=== PATIENT | female | born 1930 | race Caucasian/White ===

== ENCOUNTER 2016-03-13 01:40 | Inpatient (IN) | payer OTHER ==
--- NOTE | 2016-03-13 02:22 | PDOC ---
History of Present Illness - General History Source: Patient Exam Limitations: No Limitations - History of Present Illness Initial Comments: 03/13/16 02:49 The patient is a 85 year old female, with a significant past medical history of HTN, RA, CAD (stent placed), who presents to the emergency department with L knee pain and L thigh s/p fall. The patients daughter is at bedside and reports she misstepped while climbing down the stairs. The patient denies any further complaints or any injury. She denies chest pain, headache and dizziness. She denies fever, chills, nausea, vomit, diarrhea and constipation. She denies dysuria, frequency, urgency and hematuria. <Amy Briggs - Last Filed: 03/13/16 02:49> <Franklin Han - Last Filed: 03/13/16 06:08> - General Stated Complaint: FALL Past History <Amy Briggs - Last Filed: 03/13/16 02:49> - Past Medical History Cardiac Disorders: Yes (Atrial Fibrillation) HTN: Yes Hypercholesterolemia: Yes - Surgical History Cardiac Surgery: Yes (1 2009) - Immunization History Immunization Up to Date: Yes - Psycho/Social/Smoking Cessation Hx Anxiety: No Suicidal Ideation: No Smoking History: Never smoked Have you smoked in the past 12 months: No Number of Cigarettes Smoked Daily: 0 Cigars Per Day: 0 Information on smoking cessation initiated: No Hx Alcohol Use: No Drug/Substance Use Hx: No Substance Use Type: None Hx Substance Use Treatment: No <Franklin Han - Last Filed: 03/13/16 06:08> - Past Medical History Allergies/Adverse Reactions: Allergies Allergy/AdvReac Type Severity Reaction Status Date / Time No Known Allergies Allergy Verified 07/04/13 16:19 Home Medications: Ambulatory Orders Amiodarone HCl [Cordarone -] 200 mg PO DAILY 03/13/16 Famotidine [Pepcid] 20 mg PO DAILY 03/13/16 Levothyroxine [Synthroid -] 0.05 mg PO DAILY 03/13/16 Lisinopril [Zestril] 2.5 mg PO DAILY 03/13/16 Metoprolol Succinate [Toprol Xl -] 25 mg PO DAILY 03/13/16 Rivaroxaban [Xarelto -] 15 mg PO DAILY 12/25/16 Review of Systems - Review of Systems Able to Perform ROS?: Yes Comments:: 03/13/16 02:49 GENERAL/CONSTITUTIONAL: No fever or chills. No weakness. HEAD, EYES, EARS, NOSE AND THROAT: No change in vision. No ear pain or discharge. No sore throat. CARDIOVASCULAR: No chest pain or shortness of breath. RESPIRATORY: No cough, wheezing, or hemoptysis. GASTROINTESTINAL: No nausea, vomiting, diarrhea or constipation. GENITOURINARY: No dysuria, frequency, or change in urination. MUSCULOSKELETAL: + L knee pain. +L thigh pain.No joint or muscle swelling or pain. No neck or back pain. SKIN: No rash NEUROLOGIC: No headache, vertigo, loss of consciousness, or change in strength/ sensation. ENDOCRINE: No increased thirst. No abnormal weight change. HEMATOLOGIC/LYMPHATIC: No anemia, easy bleeding, or history of blood clots. ALLERGIC/IMMUNOLOGIC: No hives or skin allergy. <Amy Briggs - Last Filed: 03/13/16 02:49> *Physical Exam - Vital Signs Last Vital Signs Temp Pulse Resp BP Pulse Ox 98.1 F 86 20 117/76 100 03/13/16 02:00 03/13/16 02:00 03/13/16 02:00 03/13/16 02:00 03/13/16 02:00 - Physical Exam Comments: 03/13/16 02:49 GENERAL: Awake, alert, and fully oriented, in no acute distress HEAD: No signs of trauma EYES: PERRLA, EOMI, sclera anicteric, conjunctiva clear ENT: Auricles normal inspection, hearing grossly normal, nares patent, oropharynx clear without exudates. Moist mucosa NECK: Normal ROM, supple, no lymphadenopathy, JVD, or masses LUNGS: Breath sounds equal, clear to auscultation bilaterally. No wheezes, and no crackles HEART: Regular rate and rhythm, normal S1 and S2, no murmurs, rubs or gallops ABDOMEN: Soft, nontender, normoactive bowel sounds. No guarding, no rebound. No masses EXTREMITIES: +Tender in the L mid thigh and L femur. Normal range of motion, no edema. No clubbing or cyanosis. No cords, erythema, or tenderness NEUROLOGICAL: Cranial nerves II through XII grossly intact. Normal speech, normal gait SKIN: Warm, Dry, normal turgor, no rashes or lesions noted. <Amy Briggs - Last Filed: 03/13/16 02:49> - Vital Signs Last Vital Signs Temp Pulse Resp BP Pulse Ox 98.1 F 86 20 117/76 100 03/13/16 02:00 03/13/16 02:00 03/13/16 02:00 03/13/16 02:00 03/13/16 02:00 <Franklin Han - Last Filed: 03/13/16 06:08> ED Treatment Course - LABORATORY CBC & Chemistry Diagram: 03/13/16 02:52 03/13/16 02:52 <Franklin Han - Last Filed: 03/13/16 06:08> *DC/Admit/Observation/Transfer - Attestations Scribe Attestion: 03/13/16 02:50 Documentation prepared by Amy Briggs, acting as certified medical dosimetrist for Franklin Han MD <Amy Briggs - Last Filed: 03/13/16 02:49> - Discharge Dispostion Admit: Yes <Franklin Han - Last Filed: 03/13/16 06:08> Diagnosis at time of Disposition: Fracture of left tibial plateau Qualifiers: Encounter type: initial encounter Fracture type: closed Qualified Code(s): S82.142A - Displaced bicondylar fracture of left tibia, initial encounter for closed fracture Fracture of proximal end of fibula Qualifiers: Encounter type: initial encounter Fracture type: closed - Discharge Dispostion Condition at time of disposition: Guarded - Referrals Referrals: Mateo Parrish MD [Primary Care Provider] -
[2016-03-13] MEDS ORDERED: morphine CARPU-JECT 4 MG/1 ML DISP.SYRIN IVPUSH ONE (02:29)
[2016-03-13] MEDS: SODIUM CHLORIDE 1,000 ML IV SCH ×2 (03:16→14:23)
[2016-03-13 03:22] LABS: BASOPHIL 0.1 % (0-2.0); MCH 31.4 pg (25.7-33.7); MCHC 32.1 g/dl (32.0-36.0); MEAN CELL VOLUME 97.7 fl (80-96); MEAN PLT VOLUME 8.8 fl (7.5-11.1); NEUTROPHILS 93.2 % (42.8-82.8); PLATELET COUNT 202 K/MM3 (134-434); RDW 13.7 % (11.6-15.6); WHITE BLOOD COUNT 15.1 K/mm3 (4.0-10.0)
[2016-03-13 03:47] LABS: ALBUMIN 3.7 g/dl (3.4-5.0); CALCIUM 8.7 mg/dL (8.5-10.1); CREATININE 2.2 mg/dL (0.55-1.02)
[2016-03-13 03:50] LABS: BILIRUBIN,TOTAL 0.7 mg/dL (0.2-1.0); TOT PROT 6.7 g/dl (6.4-8.2)
[2016-03-13 04:44] LABS: URINE APPEARANCE SLCLOUDY; URINE BILIRUBIN NEGATIVE (NEGATIVE); URINE BLOOD NEGATIVE (NEGATIVE); URINE COLOR DKYELLOW; URINE GLUCOSE (UA) NEGATIVE (NEGATIVE); URINE KETONE TRACE (NEGATIVE); URINE NITRITE NEGATIVE (NEGATIVE); URINE UROBILINOGEN 2.0 E.U/dl E.U./dl (0.2-1.0)
[2016-03-13 04:46] LABS: URINE LEUK ESTERASE 1+ (NEGATIVE); URINE PROTEIN 1+ (NEGATIVE)
[2016-03-13 04:48] LABS: URINE BACTERIA FEW /hpf (NONE SEEN); URINE HYALINE CAST 21 /lpf; URINE MUCUS FEW; URINE RBC 2 /hpf (0-3); URINE WBC 7 /hpf (3-5)
--- NOTE | 2016-03-13 07:48 | HP ---
CHIEF COMPLAINT: PCP: HISTORY OF PRESENT ILLNESS: ER course was notable for: (1) (2) (3) Recent Travel: PAST MEDICAL HISTORY: PAST SURGICAL HISTORY: Social History: Smoking: Alcohol: Drugs: Family History: Allergies No Known Allergies Allergy (Verified 07/04/13 16:19) HOME MEDICATIONS: Medication Instructions Recorded Amiodarone HCl [Cordarone -] 200 mg PO DAILY 03/13/16 Famotidine [Pepcid] 20 mg PO DAILY 03/13/16 Levothyroxine [Synthroid -] 0.05 mg PO DAILY 03/13/16 Lisinopril [Zestril] 2.5 mg PO DAILY 03/13/16 Metoprolol Succinate [Toprol XL -] 25 mg PO DAILY 03/13/16 Rivaroxaban [Xarelto -] 15 mg PO DAILY 03/13/16 REVIEW OF SYSTEMS CONSTITUTIONAL: Absent: fever, chills, diaphoresis, generalized weakness, malaise, loss of appetite, weight change HEENT: Absent: rhinorrhea, nasal congestion, throat pain, throat swelling, difficulty swallowing, mouth swelling, ear pain, eye pain, visual changes CARDIOVASCULAR: Absent: chest pain, syncope, palpitations, irregular heart rate, lightheadedness , peripheral edema RESPIRATORY: Absent: cough, shortness of breath, dyspnea with exertion, orthopnea, wheezing, stridor, hemoptysis GASTROINTESTINAL: Absent: abdominal pain, abdominal distension, nausea, vomiting, diarrhea, constipation, melena, hematochezia GENITOURINARY: Absent: dysuria, frequency, urgency, hesitancy, hematuria, flank pain, genital pain MUSCULOSKELETAL: Absent: myalgia, arthralgia, joint swelling, back pain, neck pain SKIN: Absent: rash, itching, pallor HEMATOLOGIC/IMMUNOLOGIC: Absent: easy bleeding, easy bruising, lymphadenopathy, frequent infections ENDOCRINE: Absent: unexplained weight gain, unexplained weight loss, heat intolerance, cold intolerance NEUROLOGIC: Absent: headache, focal weakness or paresthesias, dizziness, unsteady gait, seizure, mental status changes, bladder or bowel incontinence PSYCHIATRIC: Absent: anxiety, depression, suicidal or homicidal ideation, hallucinations. PHYSICAL EXAMINATION Vital Signs - 24 hr 03/13/16 06:21 Temperature 98.9 F Pulse Rate [ 77 Radial] Respiratory 20 Rate Blood Pressure 164/69 [Left Arm] O2 Sat by Pulse 97 Oximetry (%) GENERAL: Awake, alert, and fully oriented, in no acute distress. HEAD: Normal with no signs of trauma. EYES: Pupils equal, round and reactive to light, extraocular movements intact, sclera anicteric, conjunctiva clear. No lid lag. EARS, NOSE, THROAT: Ears normal, nares patent, oropharynx clear without exudates. Moist mucous membranes. NECK: Normal range of motion, supple without lymphadenopathy, JVD, or masses. LUNGS: Breath sounds equal, clear to auscultation bilaterally. No wheezes, and no crackles. No accessory muscle use. HEART: Regular rate and rhythm, normal S1 and S2 without murmur, rub or gallop. ABDOMEN: Soft, nontender, not distended, normoactive bowel sounds, no guarding, no rebound, no masses. No hepatomegaly or splenomegaly. MUSCULOSKELETAL: Normal range of motion at all joints. No bony deformities or tenderness. No CVA tenderness. UPPER EXTREMITIES: 2+ pulses, warm, well-perfused. No cyanosis. No clubbing. Cap refill <2 seconds. No peripheral edema. LOWER EXTREMITIES: 2+ pulses, warm, well-perfused. No calf tenderness. No peripheral edema. NEUROLOGICAL: Cranial nerves II-XII intact. Normal speech. Normal gait. PSYCHIATRIC: Cooperative. Good eye contact. Appropriate mood and affect. SKIN: Warm, dry, normal turgor, no rashes or lesions noted. ASSESSMENT/PLAN:
[2016-03-13] MEDS: RANITIDINE HCL 150 MG TABLET (FP) PO SCH (09:32)
[2016-03-13] MEDS: LISINOPRIL 5 MG TABLET (FP) PO SCH (09:32)
[2016-03-13] MEDS: METOPROLOL SUCCINATE 25 MG TAB.SR.24H (FP) PO SCH (09:32)
[2016-03-13] MEDS: AMIODARONE HCL 200 MG TABLET (FP) PO SCH (09:32)
[2016-03-13] MEDS: RIVAROXABAN 15 MG TABLET PO SCH (09:35)
[2016-03-13] MEDS: oxyCODONE HCL 5 MG TABLET PO PRN ×2 (09:36→17:44)
[2016-03-13 10:04] VITALS: BMI 20.5
--- NOTE | 2016-03-13 16:16 | EKG ---
Test Reason : Blood Pressure : / mmHG Vent. Rate : 077 BPM Atrial Rate : 077 BPM P-R Int : 154 ms QRS Dur : 088 ms QT Int : 356 ms P-R-T Axes : 048 -05 006 degrees QTc Int : 402 ms NORMAL SINUS RHYTHM CANNOT RULE OUT ANTERIOR INFARCT , AGE UNDETERMINED ABNORMAL ECG WHEN COMPARED WITH ECG OF 11-JUL-2013 09:06, SINUS RHYTHM HAS REPLACED ATRIAL FIBRILLATION T WAVE INVERSION NO LONGER EVIDENT IN ANTEROLATERAL LEADS PREMATURE VENTRICULAR COMPLEXES NO LONGER SEEN Confirmed by MAYTE RECINOS MD ([id number]) on 03/13/2016 4:16:24 PM Referred By: Overread By: MAYTE RECINOS MD
--- NOTE | 2016-03-13 16:18 | HP ---
CHIEF COMPLAINT: Left knee and left thigh pain after falling on stairs. Daughter states patient missed a step while climbing stairs and lost balance. Denies loss of consciousness or head trauma. PCP: Mateo Parrish MD HISTORY OF PRESENT ILLNESS: The patient is a 85 year old female, with a significant past medical history of hypertension, RA, CAD (w stents), who presents to the emergency department with left knee pain and left thigh s/p fall. The patient denies hitting her head or feeling lightheaded. She denies chest pain, headache and dizziness. She denies fever, chills, nausea, vomit or any other discomfort. ER course was notable for: (1) Leukocytosis (2) Bun 34/Creatinine 2.3 (3) fracture of the proximal tibia and fibula Recent Travel: none PAST MEDICAL HISTORY: atrial fibrillation, hypertension Social History: Smoking: denies Alcohol: denies Drugs: denies Family History: Allergies - no known allergies No Known Allergies Allergy (Verified 07/04/13 16:19) HOME MEDICATIONS: Medication Instructions Recorded Amiodarone HCl [Cordarone -] 200 mg PO DAILY 03/13/16 Famotidine [Pepcid] 20 mg PO DAILY 03/13/16 Levothyroxine [Synthroid -] 0.05 mg PO DAILY 03/13/16 Lisinopril [Zestril] 2.5 mg PO DAILY 03/13/16 Metoprolol Succinate [Toprol XL -] 25 mg PO DAILY 03/13/16 Rivaroxaban [Xarelto -] 15 mg PO DAILY 03/13/16 REVIEW OF SYSTEMS CONSTITUTIONAL: Absent: fever, chills, diaphoresis, generalized weakness, malaise, loss of appetite, weight change HEENT: Absent: rhinorrhea, nasal congestion, throat pain, throat swelling, difficulty swallowing, mouth swelling, ear pain, eye pain, visual changes CARDIOVASCULAR: Absent: chest pain, syncope, palpitations, irregular heart rate, lightheadedness , peripheral edema RESPIRATORY: Absent: cough, shortness of breath, dyspnea with exertion, orthopnea, wheezing, stridor, hemoptysis GASTROINTESTINAL: Absent: abdominal pain, abdominal distension, nausea, vomiting, diarrhea, constipation, melena, hematochezia GENITOURINARY: Absent: dysuria, frequency, urgency, hesitancy, hematuria, flank pain, genital pain SKIN: Absent: rash, itching, pallor HEMATOLOGIC/IMMUNOLOGIC: Absent: easy bleeding, easy bruising, lymphadenopathy, frequent infections ENDOCRINE: Absent: unexplained weight gain, unexplained weight loss, heat intolerance, cold intolerance PHYSICAL EXAMINATION Vital Signs - 24 hr 03/13/16 03/13/16 03/13/16 06:21 09:56 14:44 Temperature 98.9 F 98.1 F 97.9 F Pulse Rate 71 68 Pulse Rate [ 77 Radial] Respiratory 20 20 Rate Blood Pressure 140/62 132/63 Blood Pressure 164/69 [Left Arm] O2 Sat by Pulse 97 98 Oximetry (%) GENERAL: Awake, alert, and fully oriented, in no acute distress. HEAD: Normal with no signs of trauma. EYES: Pupils equal, round and reactive to light, extraocular movements intact, sclera anicteric, conjunctiva clear. No lid lag. EARS, NOSE, THROAT: Ears normal, nares patent, oropharynx clear without exudates. Moist mucous membranes. NECK: Normal range of motion, supple without lymphadenopathy, JVD, or masses. LUNGS: Breath sounds equal, clear to auscultation bilaterally. No wheezes, and no crackles. No accessory muscle use. ABDOMEN: Soft, nontender, not distended, normoactive bowel sounds, no guarding, no rebound, no masses. No hepatomegaly or splenomegaly. MUSCULOSKELETAL: fracture of the left proximal tibia and fibula/no distress/ LLE immobilizer in place good pedal pulses UPPER EXTREMITIES: 2+ pulses, warm, well-perfused. No cyanosis. No clubbing. Cap refill <2 seconds. No peripheral edema. ASSESSMENT/PLAN: The patient is a 85 year old female, with a significant past medical history of hypertension, RA, CAD (w stents), who presents to the emergency department with left knee pain and left thigh s/p fall. The patient denies hitting her head or feeling lightheaded. She denies chest pain, headache and dizziness. She denies fever, chills, nausea, vomit or any other discomfort. Orthopedics: Fracture of the proximal tibia and fibula - acute Assessment/Plan: On LLE immobilizer, good pedal pulses. Surgical evaluation pending Pain managed with Oxycodone 5mg prn. Awaiting ortho recommendation/input. Cardiology: Hypertension - chronic Assessment/Plan: Controlled with Metoprolol 25mg daily, Lisinopril 2.5mg daily Monitor BPs : Acute Kidney Injury: Assessment/Plan: Bun/Creatinine elevated, on Normal saline at 100cc/hr Monitor trend F.E.N. NS at 100cc/hr BMP in the a.m. Regular diet Prophylaxis: GI: colace prn DVT: Xarelto 15mg daily, SCD on right leg Disposition: Requires inpatient hospitalization. Full code. Visit type - Emergency Visit Emergency Visit: Yes ED Registration Date: 03/13/16 Care time: The patient presented to the Emergency Department on the above date and was hospitalized for further evaluation of their emergent condition. - New Patient This patient is new to me today: Yes Date on this admission: 03/14/16 - Critical Care Critical Care patient: No
[2016-03-14] MEDS: SODIUM CHLORIDE 1,000 ML IV SCH (02:30)
[2016-03-14] MEDS: oxyCODONE HCL 5 MG TABLET PO PRN ×3 (06:13→23:59)
[2016-03-14] MEDS: LEVOTHYROXINE NA 50 MCG TABLET (FP) PO SCH (06:14)
[2016-03-14 07:23] LABS: MCH 32.9 pg (25.7-33.7); MCHC 33.4 g/dl (32.0-36.0); MEAN CELL VOLUME 98.3 fl (80-96); MEAN PLT VOLUME 8.5 fl (7.5-11.1); PLATELET COUNT 121 K/MM3 (134-434); RDW 13.8 % (11.6-15.6); WHITE BLOOD COUNT 8.2 K/mm3 (4.0-10.0)
[2016-03-14 07:44] LABS: CALCIUM 7.2 mg/dL (8.5-10.1); CREATININE 0.8 mg/dL (0.55-1.02)
[2016-03-14] MEDS: LISINOPRIL 5 MG TABLET (FP) PO SCH (09:27)
[2016-03-14] MEDS: METOPROLOL SUCCINATE 25 MG TAB.SR.24H (FP) PO SCH (09:27)
[2016-03-14] MEDS: AMIODARONE HCL 200 MG TABLET (FP) PO SCH (09:27)
[2016-03-14] MEDS: RANITIDINE HCL 150 MG TABLET (FP) PO SCH (09:27)
[2016-03-14] MEDS ORDERED: SODIUM CHLORIDE 1,000 ML IV SCH (10:46)
[2016-03-14] MEDS: RIVAROXABAN 15 MG TABLET PO SCH (11:33)
--- NOTE | 2016-03-14 14:39 | PN ---
Physical Exam: SUBJECTIVE: Patient seen and examined, son at the bedside. Pt verbalizes pain with movement of the left leg. 1500: Called Dr. Roper service [phone]; no one picks up, no option to leave message consulted Dr. Marie. 6th floor staff assisting in contacting Dr. Marie and/or Dr. Roper 1600: Called [facility], hit option 5, left message on voice mail and provided my cell phone no. on 1611: called Dr Marie service [phone] - spoke to coconut cooker - left stat message for Dr Marie. 162: Spoke with Dr. Marie, discussed case. OBJECTIVE: GENERAL: Awake, alert, and fully oriented, in no acute distress. HEAD: Normal with no signs of trauma. EYES: Pupils equal, round and reactive to light, extraocular movements intact, sclera anicteric, conjunctiva clear. No lid lag. EARS, NOSE, THROAT: Ears normal, nares patent, oropharynx clear without exudates. Moist mucous membranes. NECK: Normal range of motion, supple without lymphadenopathy, JVD, or masses. LUNGS: Breath sounds equal, clear to auscultation bilaterally. No wheezes, and no crackles. No accessory muscle use. ABDOMEN: Soft, nontender, not distended, normoactive bowel sounds, no guarding, no rebound, no masses. MUSCULOSKELETAL: fracture of the left proximal tibia and fibula UPPER EXTREMITIES: 2+ pulses, warm, well-perfused. No cyanosis. No clubbing. Cap refill <2 seconds. No peripheral edema. Period Temp Pulse Resp BP Sys/Gandara Pulse Ox Last 24 Hr 97.6 F-98.6 F 68-80 16-18 125-151/55-68 98-98 Laboratory Results - last 24 hr 03/14/16 03/14/16 06:30 06:30 WBC 8.2 D RBC 3.31 L Hgb 10.9 D Hct 32.6 D MCV 98.3 H MCHC 33.4 RDW 13.8 Plt Count 121 L D MPV 8.5 Sodium 141 Potassium 4.3 Chloride 111 H Carbon Dioxide 22 Anion Gap 8 BUN 23 H D Creatinine 0.8 D Random Glucose 102 D Calcium 7.2 L Active Medications Generic Name Dose Route Start Last Admin Trade Name Freq PRN Reason Stop Dose Admin Amiodarone HCl 200 mg 03/13/16 10:00 03/14/16 09:27 Cordarone - PO 200 mg DAILY SIMON Administration Sodium Chloride 1,000 mls @ 50 mls/hr 03/14/16 10:46 03/14/16 11:33 Normal Saline - IV 50 mls/hr ASDIR SIMON Administration Levothyroxine Sodium 50 mcg 03/14/16 07:00 03/14/16 06:14 Synthroid - PO 50 mcg AM SIMON Administration Lisinopril 2.5 mg 03/13/16 10:00 03/14/16 09:27 Prinivil PO 2.5 mg DAILY SIMON Administration Metoprolol Succinate 25 mg 03/13/16 10:00 03/14/16 09:27 Toprol Xl - PO 25 mg DAILY SIMON Administration Oxycodone HCl 5 mg 03/13/16 07:46 03/14/16 06:13 Roxicodone - PO 5 mg Q4H PRN Administration PAIN Ranitidine HCl 150 mg 03/13/16 10:00 03/14/16 09:27 Zantac - PO 150 mg DAILY SIMON Administration Rivaroxaban 15 mg 03/13/16 10:00 03/14/16 11:33 Xarelto - PO 15 mg DAILY SIMON Administration ASSESSMENT/PLAN: The patient is a 85 year old female, with a significant past medical history of hypertension, RA, CAD (w stents), who presents to the emergency department with left knee pain and left thigh s/p fall. The patient denies hitting her head or feeling lightheaded. She denies chest pain, headache and dizziness. She denies fever, chills, nausea, vomit or any other discomfort. Orthopedics: Fracture of the proximal tibia and fibula - acute Assessment/Plan: On LLE immobilizer, good pedal pulses. Pain managed with Oxycodone 5mg prn. Spoke with Dr. Marie, who will come see patient tomorrow Will hold off on physical therapy until cleared by Ortho. Cardiology: Hypertension - chronic Assessment/Plan: Controlled with Metoprolol 25mg daily, Lisinopril 2.5mg daily Monitor BPs : Acute Kidney Injury: Assessment/Plan: Bun/Creatinine improving with IV hydration. Continue to monitor. Hematology: Thrombocytopenia - acute Assessment/Plan: Noted platelets to drop to 121 from 200 on admission. She is currently on Xarelto 15mg daily which is a home medication Needs close monitoring F.E.N. NS at 100cc/hr BMP within normal limits Regular diet Prophylaxis: GI: colace prn DVT: Xarelto 15mg daily, SCD on right leg Physical therapy once cleared by orthopedics Disposition: Requires inpatient hospitalization. Full code. Visit type - Emergency Visit Emergency Visit: Yes ED Registration Date: 03/13/16 Care time: The patient presented to the Emergency Department on the above date and was hospitalized for further evaluation of their emergent condition. - New Patient This patient is new to me today: No - Critical Care Critical Care patient: No - Discharge Referral Referred to [facility] No
[2016-03-15] MEDS: oxyCODONE HCL 5 MG TABLET PO PRN (05:48)
[2016-03-15] MEDS: LEVOTHYROXINE NA 50 MCG TABLET (FP) PO SCH (05:59)
--- NOTE | 2016-03-15 07:36 | CONSULT ---
Consult - text type - Consultation Consultation Note: FULL CONSULT DICTATED IMP: LEFT PROXIMAL TIB/FIB FX - NONDISPLACED PLAN: CLOSED TREATMENT IN KNEE IMMOBILIZER. NO SURGERY NECESSARY. PT-NWB. PLACEMENT NEEDED
--- NOTE | 2016-03-15 07:57 | CONS ---
DATE OF CONSULTATION: 03/15/2016 ORTHOPEDIC CONSULTATION: Patient is an 85-year-old female status post fall, complaining of pain in the left lower extremity with inability to ambulate. On physical exam, she has tenderness diffusely medially and laterally in the proximal tibiofibular region, minimal effusion at the knee. Calf is soft, nontender, neurovascularly intact. Good motion, ankle and toes. Passive good motion of the hip. No tenderness along the pelvis, pubis, SI joints, ilium, sacrum, groin, or greater trochanter. No leg length discrepancy. Thigh is soft. No ecchymosis and erythema. X-rays show a nondisplaced left proximal tibiofibular fracture, extra-articular. IMPRESSION: Fracture as described. PLAN: Closed treatment, knee immobilizer, nonweightbearing, physical therapy, and discharge planning are required. Mac [id number]
[2016-03-15 08:35] LABS: MCH 32.1 pg (25.7-33.7); MEAN CELL VOLUME 97.4 fl (80-96); MEAN PLT VOLUME 9.1 fl (7.5-11.1); PLATELET COUNT 114 K/MM3 (134-434); RDW 13.4 % (11.6-15.6); WHITE BLOOD COUNT 11.2 K/mm3 (4.0-10.0)
[2016-03-15 09:15] LABS: ALBUMIN 2.7 g/dl (3.4-5.0); ALK PHOS 88 U/L (45-117); ANION GAP 8 (8-16); BILIRUBIN,TOTAL 1.2 mg/dL (0.2-1.0); CALCIUM 7.6 mg/dL (8.5-10.1); CO2 20 mmol/L (21-32); CREATININE 0.6 mg/dL (0.55-1.02); GLUCOSE,RANDOM 94 mg/dL (74-106); SGOT/AST 55 U/L (15-37); SGPT/ALT 53 U/L (12-78); TOT PROT 5.3 g/dl (6.4-8.2)
[2016-03-15] MEDS ORDERED: PT OWN MED DRAWER 7, Y5N ONE (09:31)
[2016-03-15] MEDS: LISINOPRIL 5 MG TABLET (FP) PO SCH (09:35)
[2016-03-15] MEDS: RANITIDINE HCL 150 MG TABLET (FP) PO SCH (09:35)
[2016-03-15] MEDS: METOPROLOL SUCCINATE 25 MG TAB.SR.24H (FP) PO SCH (09:35)
[2016-03-15] MEDS: AMIODARONE HCL 200 MG TABLET (FP) PO SCH (09:37)
[2016-03-15] MEDS: RIVAROXABAN 15 MG TABLET PO SCH (09:37)
[2016-03-15 09:51] LABS: INR 1.28 (0.82-1.09); PROTHROMBIN TIME (PATIENT) 14.2 SEC (9.98-11.88)
--- NOTE | 2016-03-15 16:53 | PN ---
Physical Exam: SUBJECTIVE: Patient seen and examined. No BM, complains of constipation OBJECTIVE: Vital Signs Period Temp Pulse Resp BP Sys/Gandara Pulse Ox Last 24 Hr 97.4 F-98.1 F 66-76 18-20 122-160/58-84 95 GENERAL: Awake, alert, and fully oriented, in no acute distress. HEENT: EOMI, moist mucous membranes LUNGS: Breath sounds equal, clear to auscultation bilaterally. ABDOMEN: Soft, nontender, not distended, normoactive bowel sounds MUSCULOSKELETAL: has immbolizer device on LLE Laboratory Results - last 24 hr 03/15/16 03/15/16 03/15/16 06:40 06:40 06:40 WBC 11.2 H D RBC 3.31 L Hgb 10.6 L Hct 32.2 L MCV 97.4 H MCHC 33.0 RDW 13.4 Plt Count 114 L MPV 9.1 INR 1.28 H Sodium 137 Potassium 3.8 Chloride 109 H Carbon Dioxide 20 L Anion Gap 8 BUN 13 D Creatinine 0.6 D Creat Clearance w eGFR > 60 Random Glucose 94 Calcium 7.6 L Total Bilirubin 1.2 H D AST 55 H D ALT 53 D Alkaline Phosphatase 88 Total Protein 5.3 L D Albumin 2.7 L D Active Medications Generic Name Dose Route Start Last Admin Trade Name Freq PRN Reason Stop Dose Admin Amiodarone HCl 200 mg 03/13/16 10:00 03/15/16 09:37 Cordarone - PO 200 mg DAILY SIMON Administration Sodium Chloride 1,000 mls @ 50 mls/hr 03/14/16 10:46 03/14/16 11:33 Normal Saline - IV 50 mls/hr ASDIR SIMON Administration Levothyroxine Sodium 50 mcg 03/14/16 07:00 03/15/16 05:59 Synthroid - PO 50 mcg AM SIMON Administration Lisinopril 2.5 mg 03/13/16 10:00 03/15/16 09:35 Prinivil PO 2.5 mg DAILY SIMON Administration Metoprolol Succinate 25 mg 03/13/16 10:00 03/15/16 09:35 Toprol Xl - PO 25 mg DAILY SIMON Administration Oxycodone HCl 5 mg 03/13/16 07:46 03/15/16 05:48 Roxicodone - PO 5 mg Q4H PRN Administration PAIN Polyethylene Glycol 17 gm 12/27/16 17:00 Miralax (For Daily Use) - PO DAILY SIMON Ranitidine HCl 150 mg 03/13/16 10:00 03/15/16 09:35 Zantac - PO 150 mg DAILY SIMON Administration Rivaroxaban 15 mg 03/13/16 10:00 03/15/16 09:37 Xarelto - PO 15 mg DAILY SIMON Administration ASSESSMENT/PLAN: The patient is a 85 year old female, with a significant PMH of hypertension, RA , CAD (s/p stents), who presents to the emergency department with left knee pain and left thigh s/p fall. Acute fracture, orthopedic has seen - immobilizer, non-weight bearing -cont PT, d/c planning -will need orthopedic f/u as outpt -oxycodone for pain control, bowel regimen added for constipation Hypertension, Atrial fibrillation Cont Metoprolol 25mg daily, Lisinopril 2.5mg daily h/o Atrial fibrillation? as she is on amiodarone Leukocytosis Afebrile. UA has 1+ LE but pt is asympatomatic : Acute Kidney Injury: resolved Thrombocytopenia Assessment/Plan: Noted platelets to drop 200--121--114 She is currently on Xarelto 15mg daily which is a home medication Needs close monitorin Visit type - Emergency Visit Emergency Visit: Yes ED Registration Date: 03/13/16 Care time: The patient presented to the Emergency Department on the above date and was hospitalized for further evaluation of their emergent condition. - New Patient This patient is new to me today: Yes Date on this admission: 03/15/16 - Critical Care Critical Care patient: No
[2016-03-15] MEDS ORDERED: CEFTRIAXONE 1 GM in DEXTROSE 5%-WATER - 50 ML IVPB SCH (17:00)
[2016-03-15] MEDS: POLYETHYLENE GLYCOL 3350 119 GM BTL PO SCH (17:06)
[2016-03-16] MEDS: LEVOTHYROXINE NA 50 MCG TABLET (FP) PO SCH (06:13)
[2016-03-16] MEDS ORDERED: ACETAMINOPHEN 325 MG TABLET (FP) PO ONE (06:16)
[2016-03-16 08:23] LABS: MCH 32.5 pg (25.7-33.7); MCHC 33.1 g/dl (32.0-36.0); MEAN CELL VOLUME 98.2 fl (80-96); MEAN PLT VOLUME 9.5 fl (7.5-11.1); PLATELET COUNT 130 K/MM3 (134-434); RDW 13.6 % (11.6-15.6); WHITE BLOOD COUNT 13.4 K/mm3 (4.0-10.0)
[2016-03-16 09:28] LABS: CALCIUM 8.4 mg/dL (8.5-10.1); CREATININE 0.7 mg/dL (0.55-1.02); MAGNESIUM 1.9 mg/dL (1.8-2.4)
--- NOTE | 2016-03-16 09:40 | PN ---
Progress Note (short form) - Note Progress Note: COMFORTABLE PLAN: DC TO SNF WHEN READY
[2016-03-16] MEDS: POLYETHYLENE GLYCOL 3350 119 GM BTL PO SCH (09:44)
[2016-03-16] MEDS: AMIODARONE HCL 200 MG TABLET (FP) PO SCH (09:45)
[2016-03-16] MEDS: LISINOPRIL 5 MG TABLET (FP) PO SCH (09:45)
[2016-03-16] MEDS: METOPROLOL SUCCINATE 25 MG TAB.SR.24H (FP) PO SCH (09:46)
[2016-03-16] MEDS: RIVAROXABAN 15 MG TABLET PO SCH (09:46)
[2016-03-16] MEDS: RANITIDINE HCL 150 MG TABLET (FP) PO SCH (09:47)
--- NOTE | 2016-03-16 14:37 | DS ---
Physical Exam: SUBJECTIVE: Patient seen and examined. Participated in PT with use of rolling walking, NWB OBJECTIVE: Vital Signs Period Temp Pulse Resp BP Sys/Gandara Pulse Ox Last 24 Hr 97.8 F-98.7 F 78-83 20-20 120-156/66-77 96 PHYSICAL EXAM GENERAL: Awake, alert, and fully oriented, in no acute distress. HEENT: EOMI, moist mucous membranes CHEST: reproducible chest pain over left chest, has minimal skin breakdown under left breast LUNGS: Breath sounds equal, clear to auscultation bilaterally. ABDOMEN: Soft, nontender, not distended, normoactive bowel sounds MUSCULOSKELETAL: has immobilizer device on LLE, sensation intact LABS Laboratory Results - last 24 hr 03/16/16 03/16/16 06:30 06:30 WBC 13.4 H RBC 3.34 L Hgb 10.9 Hct 32.8 MCV 98.2 H MCHC 33.1 RDW 13.6 Plt Count 130 L MPV 9.5 Sodium 138 Potassium 3.5 Chloride 106 Carbon Dioxide 20 L Anion Gap 12 BUN 15 Creatinine 0.7 Random Glucose 105 Calcium 8.4 L Magnesium 1.9 HOSPITAL COURSE: Date of Admission:03/13/16 Date of Discharge: 03/16/16 The patient is a 85 year old female, with a significant PMH of hypertension, RA , CAD (s/p stents), who presents to the emergency department with left knee pain and left thigh s/p fall. Acute fracture, orthopedic has seen - immobilizer, non-weight bearing -cont PT, d/c planning -will need orthopedic f/u as outpt -oxycodone for pain control, bowel regimen added for constipation Hypertension, Atrial fibrillation Cont Metoprolol 25mg daily, Lisinopril 2.5mg daily h/o Atrial fibrillation? as she is on amiodarone Leukocytosis Afebrile. UA has 1+ LE but pt is asympatomatic : Acute Kidney Injury: resolved Thrombocytopenia Assessment/Plan: Noted platelets to drop 200--121--114 She is currently on Xarelto 15mg daily which is a home medication Needs close monitorin Minutes to complete discharge: 35 Discharge Summary Reason For Visit: FRACTURE OF PROXIMAL END OF FIBULA Current Active Problems Fracture of proximal end of fibula (Acute) Tibial plateau fracture, left (Acute) Condition: Guarded - Instructions Referrals: Mateo Parrish MD [Primary Care Provider] - - Home Medications Comprehensive Discharge Medication List: Ambulatory Orders Amiodarone HCl [Cordarone -] 200 mg PO DAILY 03/13/16 Famotidine [Pepcid] 20 mg PO DAILY 03/13/16 Levothyroxine [Synthroid -] 0.05 mg PO DAILY 03/13/16 Lisinopril [Zestril] 2.5 mg PO DAILY 03/13/16 Metoprolol Succinate [Toprol XL -] 25 mg PO DAILY 03/13/16 Rivaroxaban [Xarelto -] 15 mg PO DAILY 03/13/16 - Discharge Referral Referred to [facility] No
--- NOTE | 2016-03-16 14:41 | PN ---
Physical Exam: SUBJECTIVE: Patient seen and examined. Daughter reports pt had one episode of brief chest pain, pt minimizes. No SOB/no palpitations. Reproducible on exam OBJECTIVE: Vital Signs Period Temp Pulse Resp BP Sys/Gandara Pulse Ox Last 24 Hr 97.8 F-98.7 F 78-83 20-20 120-156/66-77 96 GENERAL: Awake, alert, and fully oriented, in no acute distress. HEENT: EOMI, moist mucous membranes CHEST: reproducible chest pain over left chest, has minimal skin breakdown under left breast LUNGS: Breath sounds equal, clear to auscultation bilaterally. ABDOMEN: Soft, nontender, not distended, normoactive bowel sounds MUSCULOSKELETAL: has immobilizer device on LLE, sensation intact Laboratory Results - last 24 hr 03/16/16 03/16/16 06:30 06:30 WBC 13.4 H RBC 3.34 L Hgb 10.9 Hct 32.8 MCV 98.2 H MCHC 33.1 RDW 13.6 Plt Count 130 L MPV 9.5 Sodium 138 Potassium 3.5 Chloride 106 Carbon Dioxide 20 L Anion Gap 12 BUN 15 Creatinine 0.7 Random Glucose 105 Calcium 8.4 L Magnesium 1.9 Active Medications Generic Name Dose Route Start Last Admin Trade Name Freq PRN Reason Stop Dose Admin Amiodarone HCl 200 mg 03/13/16 10:00 03/16/16 09:45 Cordarone - PO 200 mg DAILY SIMON Administration Levothyroxine Sodium 50 mcg 03/14/16 07:00 03/16/16 06:13 Synthroid - PO 50 mcg AM SIMON Administration Lisinopril 2.5 mg 03/13/16 10:00 03/16/16 09:45 Prinivil PO 2.5 mg DAILY SIMON Administration Metoprolol Succinate 25 mg 03/13/16 10:00 03/16/16 09:46 Toprol Xl - PO 25 mg DAILY SIMON Administration Oxycodone HCl 5 mg 03/13/16 07:46 03/15/16 05:48 Roxicodone - PO 5 mg Q4H PRN Administration PAIN Polyethylene Glycol 17 gm 03/15/16 17:00 03/16/16 09:44 Miralax (For Daily Use) - PO 17 gm DAILY SIMON Administration Ranitidine HCl 150 mg 03/13/16 10:00 03/16/16 09:47 Zantac - PO 150 mg DAILY SIMON Administration Rivaroxaban 15 mg 03/13/16 10:00 03/16/16 09:46 Xarelto - PO 15 mg DAILY SIMON Administration ASSESSMENT/PLAN: The patient is a 85 year old female, with a significant PMH of hypertension, RA , CAD (s/p stents), who presents to the emergency department with left knee pain and left thigh s/p fall. Acute fracture - immobilizer, non-weight bearing -cont PT, d/c planning - needs insurance approval -will need orthopedic f/u as outpt -oxycodone for pain control, bowel regimen Chest pain -reproducible -no associated symptoms -evidence of skin breakdown at site, will order bacitracin -She has a history of CAD with stents and should be assessed if chest pain recurs Hypertension, Atrial fibrillation Cont Metoprolol 25mg daily, Lisinopril 2.5mg daily -cont amiodarone -xarelto Leukocytosis -Trending up -Afebrile. Repeat urine culture is contaminated. Will not treat based on contaminated urine culture -No systemic signs of infection Thrombocytopenia Improved Plts now at 120 : Acute Kidney Injury: resolved Visit type - Emergency Visit Emergency Visit: Yes ED Registration Date: 03/13/16 Care time: The patient presented to the Emergency Department on the above date and was hospitalized for further evaluation of their emergent condition. - New Patient This patient is new to me today: No - Critical Care Critical Care patient: No
[2016-03-16] MEDS: oxyCODONE HCL 5 MG TABLET PO PRN ×2 (18:44→22:50)
[2016-03-16] MEDS ORDERED: LISINOPRIL 5 MG TABLET (FP) PO ONE (22:29)
[2016-03-17] MEDS: LEVOTHYROXINE NA 50 MCG TABLET (FP) PO SCH (06:00)
--- NOTE | 2016-03-17 09:15 | PN ---
Progress Note (short form) - Note Progress Note: Ortho Pt seen and examined s/p left proximal tib/fib fx- nondisplaced immobilizer intact, calf soft, nt nvi a/p NWB maintain immobilizer pain control d/c planning d/w Dr. Marie
[2016-03-17] MEDS: POLYETHYLENE GLYCOL 3350 119 GM BTL PO SCH (09:23)
[2016-03-17] MEDS: AMIODARONE HCL 200 MG TABLET (FP) PO SCH (09:23)
[2016-03-17] MEDS: METOPROLOL SUCCINATE 25 MG TAB.SR.24H (FP) PO SCH ×2 (09:23→21:30)
[2016-03-17] MEDS: BACITRACIN 30 GM TUBE TOPICAL OINTMENT TP SCH (09:23)
[2016-03-17] MEDS: RANITIDINE HCL 150 MG TABLET (FP) PO SCH (09:23)
[2016-03-17] MEDS: LISINOPRIL 5 MG TABLET (FP) PO SCH (09:23)
[2016-03-17] MEDS: oxyCODONE HCL 5 MG TABLET PO PRN (09:35)
[2016-03-17] MEDS: RIVAROXABAN 15 MG TABLET PO SCH (09:52)
[2016-03-17 10:10] LABS: BASOPHIL 0.1 % (0-2.0); MCH 32.7 pg (25.7-33.7); MCHC 33.2 g/dl (32.0-36.0); MEAN CELL VOLUME 98.4 fl (80-96); MEAN PLT VOLUME 9.3 fl (7.5-11.1); NEUTROPHILS 87.5 % (42.8-82.8); PLATELET COUNT 166 K/MM3 (134-434); RDW 14.1 % (11.6-15.6); WHITE BLOOD COUNT 15.2 K/mm3 (4.0-10.0)
[2016-03-17 10:38] LABS: ALBUMIN 2.8 g/dl (3.4-5.0); BILIRUBIN,TOTAL 1.9 mg/dL (0.2-1.0); CALCIUM 8.2 mg/dL (8.5-10.1); CREATININE 0.9 mg/dL (0.55-1.02); TOT PROT 5.6 g/dl (6.4-8.2)
[2016-03-17 10:53] LABS: INR 2.17 (0.82-1.09); PROTHROMBIN TIME (PATIENT) 24.3 SEC (9.98-11.88)
[2016-03-17] MEDS ORDERED: FUROSEMIDE 40 MG/4 ML INJECTABLE VIAL IVPUSH ONE ×3 (11:28→17:51)
[2016-03-17 11:32] LABS: URINE APPEARANCE SLCLOUDY; URINE BILIRUBIN NEGATIVE (NEGATIVE); URINE COLOR AMBER; URINE GLUCOSE (UA) 1+ (NEGATIVE); URINE KETONE 1+ (NEGATIVE); URINE LEUK ESTERASE NEGATIVE (NEGATIVE); URINE NITRITE NEGATIVE (NEGATIVE); URINE UROBILINOGEN 4.0 E.U/dl E.U./dl (0.2-1.0)
[2016-03-17 11:33] LABS: URINE BLOOD 1+ (NEGATIVE); URINE PROTEIN 2+ (NEGATIVE)
[2016-03-17 11:44] LABS: URINE BACTERIA RARE /hpf (NONE SEEN); URINE MUCUS MODERATE; URINE RBC 4 /hpf (0-3); URINE WBC 17 /hpf (3-5)
--- NOTE | 2016-03-17 11:50 | CONSULT ---
Consult Consult Specialty:: Cardiology Referred by:: Hospitalist Medicine Reason for Consultation:: Atrial fibrillation - History of Present Illness Chief Complaint: Post fall History of Present Illness: The patient is a 85 year old female, with a significant past medical history of hypertension, RA, CAD (w stents), who presents to the emergency department with left knee pain and left thigh s/p fall. The patient denies hitting her head or feeling lightheaded. She denies chest pain, headache and dizziness. She denies fever, chills, nausea, vomit or any other discomfort. ER course was notable for: (1) Leukocytosis (2) Bun 34/Creatinine 2.3 (3) fracture of the proximal tibia and fibula Recent Travel: none PAST MEDICAL HISTORY: atrial fibrillation, hypertension Social History: Smoking: denies Alcohol: denies Drugs: denies Family History: Allergies - no known allergies No Known Allergies Allergy (Verified 07/04/13 16:19) - Past Medical History Cardio/Vascular: Yes: AFIB, CAD, HTN - Alcohol/Substance Use Hx Alcohol Use: No - Smoking History Smoking history: Never smoked Have you smoked in the past 12 months: No Aproximately how many cigarettes per day: 0 Home Medications - Allergies Allergies/Adverse Reactions: Allergies Allergy/AdvReac Type Severity Reaction Status Date / Time No Known Allergies Allergy Verified 07/04/13 16:19 - Home Medications Home Medications: Ambulatory Orders Amiodarone HCl [Cordarone -] 200 mg PO DAILY 03/13/16 Famotidine [Pepcid] 20 mg PO DAILY 03/13/16 Levothyroxine [Synthroid -] 0.05 mg PO DAILY 03/13/16 Lisinopril [Zestril] 2.5 mg PO DAILY 03/13/16 Metoprolol Succinate [Toprol XL -] 25 mg PO DAILY 03/13/16 Rivaroxaban [Xarelto -] 15 mg PO DAILY 03/13/16 Vital Signs: Vital Signs Temperature 98.2 F 03/17/16 09:00 Pulse Rate 74 03/17/16 09:00 Respiratory Rate 18 03/17/16 09:00 Blood Pressure 160/82 03/17/16 09:00 O2 Sat by Pulse Oximetry (%) 94 L 03/17/16 09:00 - Other Data Labs, Other Data: CBC, BMP 03/17/16 09:40 03/17/16 09:40 INR, PTT INR 2.17 (0.82-1.09) H D 03/17/16 09:40 Troponin, BNP 03/17/16 10:40 Troponin I 0.11 H Troponin, BNP 03/17/16 10:40 Troponin I 0.11 H Assessment/Plan The patient is a 85 year old female, with a significant PMH of hypertension, RA , CAD (s/p stents), who presents to the emergency department with left knee pain and left thigh s/p fall. Acute fracture - immobilizer, non-weight bearing -cont PT, d/c planning - needs insurance approval -will need orthopedic f/u as outpt -oxycodone for pain control, bowel regimen Chest pain -reproducible -no associated symptoms -evidence of skin breakdown at site, will order bacitracin -She has a history of CAD with stents and should be assessed if chest pain recurs Hypertension, Atrial fibrillation Cont Metoprolol 25mg daily, Lisinopril 2.5mg daily -cont amiodarone -xarelto Leukocytosis -Trending up -Afebrile. Repeat urine culture is contaminated. Will not treat based on contaminated urine culture -No systemic signs of infection Thrombocytopenia Improved Plts now at 120 : Acute Kidney Injury: resolved Ortho Pt seen and examined s/p left proximal tib/fib fx- nondisplaced immobilizer intact, calf soft, nt nvi a/p NWB maintain immobilizer pain control d/c planning d/w Dr. Marie
--- NOTE | 2016-03-17 12:04 | CONSULT ---
Consult Consult Specialty:: PULMONARY Referred by:: TIM Dillon Reason for Consultation:: abnormal CXR - History of Present Illness Chief Complaint: s/p fall History of Present Illness: 85yo female with h/o HTN, CAD s/p stents, atrial fibrillation, RA who was admitted after a fall. Found to have a left tibia fibula fracture being treated nonsurgically. Episode of shortness of breath yesterday, CXR performed showing congestive changes and possible RUL mass. She currently denies any shortness of breath but reports some intermittent atypical chest pain. No fevers or chills but her WBC is rising. She denies any cough or wheezing. 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 - Past Medical History Cardio/Vascular: Yes: AFIB, CAD, HTN - Alcohol/Substance Use Hx Alcohol Use: No - Smoking History Smoking history: Never smoked Have you smoked in the past 12 months: No Aproximately how many cigarettes per day: 0 Home Medications - Allergies Allergies/Adverse Reactions: Allergies Allergy/AdvReac Type Severity Reaction Status Date / Time No Known Allergies Allergy Verified 07/04/13 16:19 - Home Medications Home Medications: Ambulatory Orders Amiodarone HCl [Cordarone -] 200 mg PO DAILY 03/13/16 Famotidine [Pepcid] 20 mg PO DAILY 03/13/16 Levothyroxine [Synthroid -] 0.05 mg PO DAILY 03/13/16 Lisinopril [Zestril] 2.5 mg PO DAILY 03/13/16 Metoprolol Succinate [Toprol XL -] 25 mg PO DAILY 03/13/16 Rivaroxaban [Xarelto -] 15 mg PO DAILY 03/13/16 Family Disease History - Family Disease History Other Family History: no h/o lung cancer Review of Systems - Review of Systems Constitutional: denies: Chills, Fever Eyes: denies: Recent Change in Vision HENT: denies: Nasal Congestion, Throat Pain Neck: denies: Stiffness, Tenderness Cardiovascular: reports: Chest Pain, Shortness of Breath. denies: Edema Respiratory: denies: Cough, Hemoptysis, Wheezing Gastrointestinal: denies: Abdominal Pain, Melena, Nausea Genitourinary: denies: Dysuria, Hematuria Neurological: denies: Dizziness, Headache Physical Exam Vital Sings: Vital Signs Temperature 98.2 F 03/17/16 09:00 Pulse Rate 74 03/17/16 09:00 Respiratory Rate 18 03/17/16 09:00 Blood Pressure 160/82 03/17/16 09:00 O2 Sat by Pulse Oximetry (%) 94 L 03/17/16 09:00 Constitutional: Yes: Calm Eyes: Yes: Conjunctiva Clear, EOM Intact HENT: Yes: Atraumatic, Normocephalic Neck: Yes: Supple, Trachea Midline Cardiovascular: Yes: Pulse Irregular Respiratory: Yes: Rales (scattered) ...Clubbing: No Gastrointestinal: Yes: Normal Bowel Sounds, Soft. No: Tenderness Edema: No Neurological: Yes: Alert, Oriented Labs: CBC, BMP 03/17/16 09:40 03/17/16 09:40 Imaging - Results Chest X-ray: Report Reviewed, Image Reviewed (bilateral interstitial infiltrative changes, RUL mass like density) Problem List - Problems (1) Fall Code(s): W19.XXXA - UNSPECIFIED FALL, INITIAL ENCOUNTER (2) Fracture of proximal end of fibula Code(s): S82.839A - OTH FRACTURE OF UPPER AND LOWER END OF UNSP FIBULA, INIT Qualifiers: Encounter type: initial encounter Fracture type: closed (3) Tibial plateau fracture, left Code(s): S82.142A - DISPLACED BICONDYLAR FRACTURE OF LEFT TIBIA, INIT Qualifiers: Encounter type: initial encounter Fracture type: closed Qualified Code(s): S82.142A - Displaced bicondylar fracture of left tibia, initial encounter for closed fracture (4) Afib Code(s): I48.91 - UNSPECIFIED ATRIAL FIBRILLATION (5) UTI (urinary tract infection) Code(s): N39.0 - URINARY TRACT INFECTION, SITE NOT SPECIFIED (6) Lung mass Code(s): R91.8 - OTHER NONSPECIFIC ABNORMAL FINDING OF LUNG FIELD Assessment/Plan s/p Fall with left tibia/fibula fracture RUL Mass CAD Atrial Fibrillation Pulmonary HTN HTN Elevated LFTs - will get CT chest noncontrast to further evaluate abnormal CXR - trial of lasix - monitor urine output, creatinine - cycle cardiac enzymes, will add on BNP - echocardiogram as last echo in our system in 2013 and showing mod-severe pulmonary HTN - will start empiric ceftriaxone as pt with rising WBC and UA with 17 WBC - f/u cultures, can d/c antibiotics if cultures negative - trend LFTs, ?congestive hepatopathy, RUQ benign on exam, if continues to rise will need RUQ ultrasound - O2 as needed - rate controlled - continue anticoagulation - further recommendations pending above studies - will follow Thank you for this consult Dario Maldonado MD
[2016-03-17] MEDS: CEFTRIAXONE 50 ML IVPB SCH (12:21)
--- NOTE | 2016-03-17 13:24 | CONSULT ---
Consult Consult Specialty:: infectious diseases Reason for Consultation:: leukocytosis - History of Present Illness Chief Complaint: sob History of Present Illness: this is a 85 y/o female with h/o HTN, CAD s/p stents, atrial fibrillation, RA who was admitted after a fall,and developed fracture of tibia,which is being treated conservatively.patient had episode of sob patient was worked up and shows congestive changes and possible some findings in the rt lung currently patient feels fine and says she is doing ok she is afebrile and asymptomatic at the moment but her wbc has increased never smoked,no drugs according to the nursing staff patient is looking much better - Past Medical History Cardio/Vascular: Yes: AFIB, CAD, HTN - Alcohol/Substance Use Hx Alcohol Use: No - Smoking History Smoking history: Never smoked Have you smoked in the past 12 months: No Aproximately how many cigarettes per day: 0 Home Medications - Allergies Allergies/Adverse Reactions: Allergies Allergy/AdvReac Type Severity Reaction Status Date / Time No Known Allergies Allergy Verified 07/04/13 16:19 - Home Medications Home Medications: Ambulatory Orders Amiodarone HCl [Cordarone -] 200 mg PO DAILY 03/13/16 Famotidine [Pepcid] 20 mg PO DAILY 03/13/16 Levothyroxine [Synthroid -] 0.05 mg PO DAILY 03/13/16 Lisinopril [Zestril] 2.5 mg PO DAILY 03/13/16 Metoprolol Succinate [Toprol XL -] 25 mg PO DAILY 03/13/16 Rivaroxaban [Xarelto -] 15 mg PO DAILY 03/13/16 Family Disease History - Family Disease History Other Family History: no h/o lung cancer Review of Systems - Review of Systems Constitutional: reports: No Symptoms Eyes: reports: No Symptoms HENT: reports: No Symptoms Neck: reports: No Symptoms Cardiovascular: reports: No Symptoms Respiratory: reports: Cough, SOB Gastrointestinal: reports: No Symptoms Musculoskeletal: reports: Joint Pain, Muscle Pain Integumentary: reports: No Symptoms Neurological: reports: No Symptoms Endocrine: reports: No Symptoms Hematology/Lymphatic: reports: No Symptoms Psychiatric: reports: No Symptoms Physical Exam Vital Signs: Vital Signs Temperature 98.2 F 03/17/16 09:00 Pulse Rate 74 03/17/16 09:00 Respiratory Rate 18 03/17/16 09:00 Blood Pressure 160/82 03/17/16 09:00 O2 Sat by Pulse Oximetry (%) 94 L 03/17/16 09:00 Constitutional: Yes: No Distress, Calm Eyes: Yes: Conjunctiva Clear Cardiovascular: Yes: Regular Rate and Rhythm, Pulse Irregular Respiratory: Yes: Regular, Poor Air Entry, Rhonchi Gastrointestinal: Yes: Normal Bowel Sounds, Soft Extremities: Yes: Other Neurological: Yes: Alert, Oriented Psychiatric: Yes: Alert Labs: CBC, BMP 03/17/16 09:40 03/17/16 09:40 Imaging - Results Chest X-ray: Report Reviewed, Image Reviewed Assessment/Plan evaluated.images seen patient to get a ct scan of the chest currently on ceftriaxone Problem List - Problems (1) Fall Code(s): W19.XXXA - UNSPECIFIED FALL, INITIAL ENCOUNTER (2) Fracture of proximal end of fibula Code(s): S82.839A - OTH FRACTURE OF UPPER AND LOWER END OF UNSP FIBULA, INIT Qualifiers: Encounter type: initial encounter Fracture type: closed (3) Tibial plateau fracture, left Code(s): S82.142A - DISPLACED BICONDYLAR FRACTURE OF LEFT TIBIA, INIT Qualifiers: Encounter type: initial encounter Fracture type: closed Qualified Code(s): S82.142A - Displaced bicondylar fracture of left tibia, initial encounter for closed fracture (4) Afib Code(s): I48.91 - UNSPECIFIED ATRIAL FIBRILLATION (5) UTI (urinary tract infection) Code(s): N39.0 - URINARY TRACT INFECTION, SITE NOT SPECIFIED (6) Lung mass Code(s): R91.8 - OTHER NONSPECIFIC ABNORMAL FINDING OF LUNG FIELD plan continue ceftriaxone for now await for imaging studies incentive antonieta rest as per primary
--- NOTE | 2016-03-17 15:19 | PN ---
Physical Exam: SUBJECTIVE: Patient seen and examined. Pt noted to be short of breath this morning. She is still complaining of left sided chest pain that is reproducible on palpation. She denies shortness of breath but needs supplemental oxygen of 2 liters. Hypertensive overnight. I spoke to patient's daughter over the phone and inform her that her mother will not be going to rehab today because her WBC is rising, liver enxymes are elevated and is having shortness of breath. Daughter verbalized understanding. OBJECTIVE: GENERAL: Awake, alert, and fully oriented, in no acute distress. Appears anxious. HEAD: Normal with no signs of trauma. EYES: Pupils equal, round and reactive to light, extraocular movements intact, sclera anicteric, conjunctiva clear. No lid lag. EARS, NOSE, THROAT: Ears normal, nares patent, oropharynx clear without exudates. Moist mucous membranes. LUNGS: Diminished breath sounds bilaterally, no wheezing ABDOMEN: Soft, nontender, not distended, normoactive bowel sounds MUSCULOSKELETAL: fracture of the left proximal tibia and fibula UPPER EXTREMITIES: 2+ pulses, warm, well-perfused. No cyanosis. No clubbing. Cap refill <2 seconds. No peripheral edema. Vital Signs Period Temp Pulse Resp BP Sys/Gandara Pulse Ox Last 24 Hr 97.2 F-98.2 F 74-86 17-20 154-190/82-90 94-96 Laboratory Results - last 24 hr 03/17/16 03/17/16 03/17/16 09:40 09:40 09:40 WBC 15.2 H RBC 3.49 L Hgb 11.4 Hct 34.3 MCV 98.4 H MCHC 33.2 RDW 14.1 Plt Count 166 D MPV 9.3 Neutrophils % 87.5 H Lymphocytes % 4.3 L D Monocytes % 8.1 Eosinophils % 0.0 Basophils % 0.1 INR 2.17 H D Sodium 142 Potassium 3.9 Chloride 107 Carbon Dioxide 24 Anion Gap 11 BUN 23 H D Creatinine 0.9 D Creat Clearance w eGFR 59.80 Random Glucose 228 H D Calcium 8.2 L Total Bilirubin 1.9 H D AST 102 H D ALT 136 H D Alkaline Phosphatase 151 H D Troponin I Total Protein 5.6 L Albumin 2.8 L Urine Color Urine Appearance Urine pH Ur Specific Crescent Urine Protein Urine Glucose (UA) Urine Ketones Urine Blood Urine Nitrite Urine Bilirubin Urine Urobilinogen Ur Leukocyte Esterase Urine RBC Urine WBC Ur Epithelial Cells Urine Bacteria Urine Mucus 03/17/16 03/17/16 10:20 10:40 WBC RBC Hgb Hct MCV MCHC RDW Plt Count MPV Neutrophils % Lymphocytes % Monocytes % Eosinophils % Basophils % INR Sodium Potassium Chloride Carbon Dioxide Anion Gap BUN Creatinine Creat Clearance w eGFR Random Glucose Calcium Total Bilirubin AST ALT Alkaline Phosphatase Troponin I 0.11 H Total Protein Albumin Urine Color Shaneka Urine Appearance Slcloudy Urine pH 5.0 Ur Specific Crescent 1.028 Urine Protein 2+ H Urine Glucose (UA) 1+ H Urine Ketones 1+ H Urine Blood 1+ H Urine Nitrite Negative Urine Bilirubin Negative Urine Urobilinogen 4.0 e.u/dl H Ur Leukocyte Esterase Negative Urine RBC 4 Urine WBC 17 Ur Epithelial Cells Moderate Urine Bacteria Rare Urine Mucus Moderate Active Medications Generic Name Dose Route Start Last Admin Trade Name Freq PRN Reason Stop Dose Admin Amiodarone HCl 200 mg 03/13/16 10:00 03/17/16 09:23 Cordarone - PO 200 mg DAILY SIMON Administration Bacitracin 1 applic 03/16/16 15:00 03/17/16 09:23 Bacitracin - TP 1 applic DAILY SIMON Administration Ceftriaxone Sodium 50 mls @ 100 mls/hr 03/17/16 12:15 03/17/16 12:21 Rocephin 1gm Ivpb (Pre-Docked) IVPB 100 mls/hr DAILY SIMON Administration Levothyroxine Sodium 50 mcg 03/14/16 07:00 03/17/16 06:00 Synthroid - PO 50 mcg AM SIMON Administration Lisinopril 5 mg 03/17/16 10:00 03/17/16 09:23 Prinivil PO 5 mg DAILY SIMON Administration Metoprolol Succinate 25 mg 03/13/16 10:00 03/17/16 09:23 Toprol Xl - PO 25 mg DAILY SIMON Administration Oxycodone HCl 5 mg 03/13/16 07:46 03/17/16 09:35 Roxicodone - PO 5 mg Q4H PRN Administration PAIN Polyethylene Glycol 17 gm 03/15/16 17:00 03/17/16 09:23 Miralax (For Daily Use) - PO 17 gm DAILY SIMON Administration Rivaroxaban 15 mg 03/13/16 10:00 03/17/16 09:52 Xarelto - PO 15 mg DAILY SIMON Administration ASSESSMENT/PLAN: The patient is a 85 year old female, with a significant past medical history of hypertension, RA, CAD (w stents), who presents to the emergency department with left knee pain and left thigh s/p fall. The patient denies hitting her head or feeling lightheaded. She denies chest pain, headache and dizziness. She denies fever, chills, nausea, vomit or any other discomfort. ID: Leukocytosis - acute Assessment/Plan: Noted WBC to be trending up, pt is afebrile but unclear why WBC are trending up, she is also short of breath. Concern for an acute pneumonia Blood cultures and urine cultures sent Ct Scan Chest pending Monitor for fevers, ID consulted Also consulted Pulmonary; Ceftriaxone 1gm ordered prophylactically until source identified GI: Elevated LFTs - acute Assessment/Plan: AST/ALT elevated, unclear source, abdominal exam negative Will trend and if continues to be elevated, will order Liver US Zantac stopped as it may cause hepatotoxicity Trend liver enzymes, Hep panel ordered. Orthopedics: Fracture of the proximal tibia and fibula - acute Assessment/Plan: On LLE immobilizer, good pedal pulses, not a surgical candidate. Plan is to send her out to outpatient PT once medically stable Pain managed with Oxycodone 5mg prn. Physical therapy following Cardiology: Hypertension - chronic Assessment/Plan: Uncontrolled HTN overnight. Increased Lisinopril to 5mg daily Monitor BPs and titrate meds Pulmonary: Shortness of breath - acute Assessment/Plan: Pt noted to be short of breath at rest requiring supplemental oxygen Chest xray shows congestion and a mass on right lung: CT of chest findings consistent with bilateral pneumonia with bilateral pleural effusions and possible underlying CHF Lasix 20mg x 1 ordered Pulmonary following Troponins elevated 0.11, monitor trend Cardiology consulted : Acute Kidney Injury: Assessment/Plan: Resolved with IVF, monitor as pt was given one dose of Lasix 20mg IV secondary to congestion Continue to monitor Hematology: Thrombocytopenia - acute Assessment/Plan: Noted platelets to drop from admission, now trending up She is currently on Xarelto 15mg daily which is a home medication - continue as pt is high risk for DVT Needs close monitoring F.E.N. Tolerating PO fluids BMP within normal limits Regular diet Prophylaxis: GI: colace prn DVT: Xarelto 15mg daily, SCD on right leg Physical therapy Disposition: Rehab once medically cleared. Requires inpatient hospitalization. Full code. Visit type - Emergency Visit Emergency Visit: Yes ED Registration Date: 03/13/16 Care time: The patient presented to the Emergency Department on the above date and was hospitalized for further evaluation of their emergent condition. - New Patient This patient is new to me today: No - Critical Care Critical Care patient: No - Discharge Referral Referred to [facility] Med P.C.: No
--- NOTE | 2016-03-17 15:48 | EKG ---
Test Reason : Blood Pressure : / mmHG Vent. Rate : 076 BPM Atrial Rate : 076 BPM P-R Int : 142 ms QRS Dur : 092 ms QT Int : 386 ms P-R-T Axes : 043 -16 -28 degrees QTc Int : 434 ms NORMAL SINUS RHYTHM NORMAL ECG WHEN COMPARED WITH ECG OF 13-MAR-2016 03:55, T WAVE INVERSION NOW EVIDENT IN ANTERIOR LEADS Confirmed by JESSICA CHRISTENSEN, JOSUÉ ([id number]) on 03/17/2016 3:47:47 PM Referred By: MICAELA MOBLEY Overread By: JOSUÉ LOPEZ MD
--- NOTE | 2016-03-17 18:27 | CONSULT ---
Consult Consult Specialty:: cardiology Reason for Consultation:: hx CAD - History of Present Illness History of Present Illness: The patient is an 85 year old female (b. [place]), with a significant past medical history of HTN, paroxysmal atrial fibrillation, RA, CAD (stent placed), who presents to the emergency department with L knee pain and L thigh s/p fall ( denies syncope). The patients daughter is at bedside and reports she misstepped while climbing down the stairs. The patient denies any further complaints or any injury. She denies chest pain, headache and dizziness. She denies fever, chills, nausea, vomit, diarrhea and constipation. She denies dysuria, frequency, urgency and hematuria. - History Source History Provided By: Patient, Family Member, Medical Record Limitations to Obtaining History: Poor Historian - Past Medical History Cardio/Vascular: Yes: AFIB, CAD, HTN Pulmonary: No: Asthma - Alcohol/Substance Use Hx Alcohol Use: No - Smoking History Smoking history: Never smoked Have you smoked in the past 12 months: No Aproximately how many cigarettes per day: 0 Home Medications - Allergies Allergies/Adverse Reactions: Allergies Allergy/AdvReac Type Severity Reaction Status Date / Time No Known Allergies Allergy Verified 07/04/13 16:19 - Home Medications Home Medications: Ambulatory Orders Amiodarone HCl [Cordarone -] 200 mg PO DAILY 03/13/16 Famotidine [Pepcid] 20 mg PO DAILY 03/13/16 Levothyroxine [Synthroid -] 0.05 mg PO DAILY 03/13/16 Lisinopril [Zestril] 2.5 mg PO DAILY 03/13/16 Metoprolol Succinate [Toprol XL -] 25 mg PO DAILY 03/13/16 Rivaroxaban [Xarelto -] 15 mg PO DAILY 03/13/16 Family Disease History - Family Disease History Other Family History: no h/o lung cancer Vital Signs: Vital Signs Temperature 97.9 F 03/17/16 18:00 Pulse Rate 74 03/17/16 18:00 Respiratory Rate 17 03/17/16 18:00 Blood Pressure 140/70 03/17/16 18:00 O2 Sat by Pulse Oximetry (%) 96 03/17/16 18:17 - Other Data Labs, Other Data: CBC, BMP 03/17/16 09:40 03/17/16 09:40 INR, PTT INR 2.17 (0.82-1.09) H D 03/17/16 09:40 Troponin, BNP 03/17/16 03/17/16 03/17/16 10:40 15:30 15:30 Troponin I 0.11 H 0.10 H B-Natriuretic Peptide 21690.12 H Troponin, BNP 03/17/16 03/17/16 03/17/16 10:40 15:30 15:30 Troponin I 0.11 H 0.10 H B-Natriuretic Peptide 28303.12 H Problem List - Problems (1) Fall Code(s): W19.XXXA - UNSPECIFIED FALL, INITIAL ENCOUNTER (2) Fracture of proximal end of fibula Code(s): S82.839A - OTH FRACTURE OF UPPER AND LOWER END OF UNSP FIBULA, INIT Qualifiers: Encounter type: initial encounter Fracture type: closed (3) Afib Assessment/Plan: On metoprolol ER for HR control. Stop amiodarone (elevated LFTs); f/u whether this medication is necessary going forward. TFTs. On Xarelto 15 mg daily. Code(s): I48.91 - UNSPECIFIED ATRIAL FIBRILLATION (4) CHF (congestive heart failure) Assessment/Plan: Elevated BNP; elevated JVD. Less short of breath; able to speak in complete sentences without distress. On metoprolol, lisinopril, furosemide.F/u electrolytes, Is and Os, BUN/Cr, daily weights. D/c amiodarone for the present (LFTs have doubled in past 24 hours, and are now 3x normal). F/u workup. ECHO for LVEF (normal LVEF, with significant pulmonary HTN and ? mitral valve lesion in 2014). Treat pneumonia. TFTs (on Synthroid). Code(s): I50.9 - HEART FAILURE, UNSPECIFIED (5) Pneumonia Code(s): J18.9 - PNEUMONIA, UNSPECIFIED ORGANISM (6) Elevated troponin I level Assessment/Plan: A number of factors may be driving this mild increase, including demand myocardial ischemia , CHF, skeletal muscle damage (s/p femur fracture). Code(s): R79.89 - OTHER SPECIFIED ABNORMAL FINDINGS OF BLOOD CHEMISTRY (8) Elevated LFTs Assessment/Plan: significant increase in LFTs, bilirubin in past 96 hours; pt is in acute CHF. F/u with GI Code(s): R79.89 - OTHER SPECIFIED ABNORMAL FINDINGS OF BLOOD CHEMISTRY
[2016-03-18] MEDS: oxyCODONE HCL 5 MG TABLET PO PRN ×2 (02:52→17:02)
[2016-03-18] MEDS: LEVOTHYROXINE NA 50 MCG TABLET (FP) PO SCH (06:11)
[2016-03-18 08:22] LABS: BASOPHIL 0.1 % (0-2.0); EOSINOPHIL 0.7 % (0-4.5); MCH 32.2 pg (25.7-33.7); MCHC 32.9 g/dl (32.0-36.0); MEAN CELL VOLUME 97.8 fl (80-96); MEAN PLT VOLUME 9.3 fl (7.5-11.1); NEUTROPHILS 85.5 % (42.8-82.8); PLATELET COUNT 170 K/MM3 (134-434); RDW 13.6 % (11.6-15.6); WHITE BLOOD COUNT 13.1 K/mm3 (4.0-10.0)
[2016-03-18 08:52] LABS: ALBUMIN 2.4 g/dl (3.4-5.0); ANION GAP 8 (8-16); CALCIUM 7.5 mg/dL (8.5-10.1); CO2 28 mmol/L (21-32); CREATININE 0.7 mg/dL (0.55-1.02); GLUCOSE,RANDOM 92 mg/dL (74-106); SGOT/AST 60 U/L (15-37); SGPT/ALT 117 U/L (12-78)
[2016-03-18 08:56] LABS: ALK PHOS 127 U/L (45-117); BILIRUBIN,TOTAL 1.6 mg/dL (0.2-1.0); TOT PROT 5.1 g/dl (6.4-8.2)
[2016-03-18] MEDS ORDERED: PT OWN MED DRAWER 7, Y5N ONE (09:53)
[2016-03-18] MEDS: CEFTRIAXONE 50 ML IVPB SCH (10:01)
[2016-03-18] MEDS: LISINOPRIL 5 MG TABLET (FP) PO SCH (10:04)
[2016-03-18] MEDS: POLYETHYLENE GLYCOL 3350 119 GM BTL PO SCH (10:05)
[2016-03-18] MEDS: KCL 10 MEQ IVPB 100 ML IVPB SCH ×3 (10:05→14:46)
[2016-03-18] MEDS: METOPROLOL SUCCINATE 25 MG TAB.SR.24H (FP) PO SCH ×2 (10:05→21:02)
[2016-03-18] MEDS: BACITRACIN 30 GM TUBE TOPICAL OINTMENT TP SCH (10:05)
[2016-03-18] MEDS: RIVAROXABAN 15 MG TABLET PO SCH (10:06)
--- NOTE | 2016-03-18 12:40 | PN ---
Progress Note (short form) - Note Progress Note: PULMONARY AWAKE/ALERT APPEARS STABLE ANICTERIC DIMINISHED BREATH SOUNDS AT BASES/SCATTERED CRACKLES B/L S1S2 BS+ SOFT NO EDEMA LABS/IMAGING/CT/NOTES REVIEWED Assessment/Plan s/p Fall with left tibia/fibula fracture volume overload/chf CAD Atrial Fibrillation Pulmonary HTN HTN Elevated LFTs - no mass noted on CT chest - trial of lasix/cardio f/u - monitor urine output, creatinine - cycle cardiac enzymes, - mod-severe pulmonary HTN - empiric ceftriaxone - f/u cultures, can d/c antibiotics if cultures negative - trend LFTs, ?congestive hepatopathy, RUQ benign on exam, if continues to rise will need RUQ ultrasound - O2 as needed - rate controlled - continue anticoagulation Stephane GRANDE MD
--- NOTE | 2016-03-18 13:37 | PN ---
Progress Note, Physician History of Present Illness: feels better breathing better - Current Medication List Current Medications: Active Medications Bacitracin (Bacitracin -) 1 applic TP DAILY [facility] Last Admin: 03/18/16 10:05 Dose: 1 applic Ceftriaxone Sodium (Rocephin 1gm Ivpb (Pre-Docked)) 50 mls @ 100 mls/hr IVPB DAILY [facility] Last Admin: 03/18/16 10:01 Dose: 100 mls/hr Levothyroxine Sodium (Synthroid -) 50 mcg PO AM [facility] Last Admin: 03/18/16 06:11 Dose: 50 mcg Lisinopril (Prinivil) 5 mg PO DAILY [facility] Last Admin: 03/18/16 10:04 Dose: 5 mg Metoprolol Succinate (Toprol Xl -) 25 mg PO BID [facility] Last Admin: 03/18/16 10:05 Dose: 25 mg Oxycodone HCl (Roxicodone -) 5 mg PO Q4H PRN PRN Reason: PAIN Last Admin: 03/18/16 02:52 Dose: 5 mg Polyethylene Glycol (Miralax (For Daily Use) -) 17 gm PO DAILY [facility] Last Admin: 03/18/16 10:05 Dose: 17 gm Rivaroxaban (Xarelto -) 15 mg PO DAILY [facility] Last Admin: 03/18/16 10:06 Dose: 15 mg - Objective Vital Signs: Vital Signs Temperature 98.1 F 03/18/16 09:28 Pulse Rate 100 H 03/18/16 09:28 Respiratory Rate 20 03/18/16 09:28 Blood Pressure 121/72 03/18/16 09:28 O2 Sat by Pulse Oximetry (%) 95 03/18/16 09:00 Constitutional: Yes: No Distress, Calm Neck: Yes: Supple Cardiovascular: Yes: Regular Rate and Rhythm Respiratory: Yes: Regular, Poor Air Entry Gastrointestinal: Yes: Normal Bowel Sounds, Soft Neurological: Yes: Alert Psychiatric: Yes: Alert Labs: CBC, BMP 03/18/16 07:15 03/18/16 07:15 INR, PTT INR 2.17 (0.82-1.09) H D 03/17/16 09:40 Assessment/Plan evaluated.images seen patient to get a ct scan of the chest currently on ceftriaxone Problem List - Problems (1) Fall Code(s): W19.XXXA - UNSPECIFIED FALL, INITIAL ENCOUNTER (2) Fracture of proximal end of fibula Code(s): S82.839A - OTH FRACTURE OF UPPER AND LOWER END OF UNSP FIBULA, INIT Qualifiers: Encounter type: initial encounter Fracture type: closed (3) Tibial plateau fracture, left Code(s): S82.142A - DISPLACED BICONDYLAR FRACTURE OF LEFT TIBIA, INIT Qualifiers: Encounter type: initial encounter Fracture type: closed Qualified Code(s): S82.142A - Displaced bicondylar fracture of left tibia, initial encounter for closed fracture (4) Afib Code(s): I48.91 - UNSPECIFIED ATRIAL FIBRILLATION (5) UTI (urinary tract infection) Code(s): N39.0 - URINARY TRACT INFECTION, SITE NOT SPECIFIED (6) Lung mass Code(s): R91.8 - OTHER NONSPECIFIC ABNORMAL FINDING OF LUNG FIELD plan continue ceftriaxone monitor wbc await for cx reports rest as per medicine team
[2016-03-18] MEDS ORDERED: KCL 10 MEQ IVPB 100 ML IVPB ONE (14:30)
--- NOTE | 2016-03-18 15:35 | PN ---
Physical Exam: SUBJECTIVE: Patient seen and examined. She is sitting up in her bed, less dyspnea at rest. She denies chest pain or shortness of breath. OBJECTIVE: Vital Signs Period Temp Pulse Resp BP Sys/Gandara Pulse Ox Last 24 Hr 97.6 F-98.1 F 74-100 17-20 121-146/70-88 95-96 Laboratory Results - last 24 hr 03/17/16 03/17/16 03/17/16 10:40 15:30 15:30 WBC RBC Hgb Hct MCV MCHC RDW Plt Count MPV Neutrophils % Lymphocytes % Monocytes % Eosinophils % Basophils % Sodium Potassium Chloride Carbon Dioxide Anion Gap BUN Creatinine Creat Clearance w eGFR Random Glucose Calcium Total Bilirubin AST ALT Alkaline Phosphatase Creatine Kinase 111 Troponin I 0.10 H B-Natriuretic Peptide 75346.12 H Total Protein Albumin TSH 03/17/16 03/17/16 03/18/16 20:10 21:25 07:15 WBC 13.1 H RBC 3.36 L Hgb 10.8 Hct 32.9 MCV 97.8 H MCHC 32.9 RDW 13.6 Plt Count 170 MPV 9.3 Neutrophils % 85.5 H Lymphocytes % 5.0 L Monocytes % 8.7 Eosinophils % 0.7 D Basophils % 0.1 Sodium Potassium Chloride Carbon Dioxide Anion Gap BUN Creatinine Creat Clearance w eGFR Random Glucose Calcium Total Bilirubin AST ALT Alkaline Phosphatase Creatine Kinase Troponin I 0.07 H B-Natriuretic Peptide Total Protein Albumin TSH 1.13 03/18/16 03/18/16 07:15 07:15 WBC RBC Hgb Hct MCV MCHC RDW Plt Count MPV Neutrophils % Lymphocytes % Monocytes % Eosinophils % Basophils % Sodium 142 Potassium 2.9 L* D Chloride 106 Carbon Dioxide 28 Anion Gap 8 BUN 22 H Creatinine 0.7 D Creat Clearance w eGFR > 60 Random Glucose 92 D Calcium 7.5 L Total Bilirubin 1.6 H AST 60 H D ALT 117 H Alkaline Phosphatase 127 H Creatine Kinase Troponin I B-Natriuretic Peptide 93765.58 H Cancelled Total Protein 5.1 L Albumin 2.4 L TSH Active Medications Generic Name Dose Route Start Last Admin Trade Name Freq PRN Reason Stop Dose Admin Bacitracin 1 applic 03/16/16 15:00 03/18/16 10:05 Bacitracin - TP 1 applic DAILY SIMON Administration Ceftriaxone Sodium 50 mls @ 100 mls/hr 03/17/16 12:15 12/30/16 10:01 Rocephin 1gm Ivpb (Pre-Docked) IVPB 100 mls/hr DAILY SIMON Administration Levothyroxine Sodium 50 mcg 03/14/16 07:00 03/18/16 06:11 Synthroid - PO 50 mcg AM SIMON Administration Lisinopril 5 mg 03/17/16 10:00 03/18/16 10:04 Prinivil PO 5 mg DAILY SIMON Administration Metoprolol Succinate 25 mg 03/17/16 22:00 03/18/16 10:05 Toprol Xl - PO 25 mg BID SIMON Administration Oxycodone HCl 5 mg 03/13/16 07:46 03/18/16 02:52 Roxicodone - PO 5 mg Q4H PRN Administration PAIN Polyethylene Glycol 17 gm 03/15/16 17:00 03/18/16 10:05 Miralax (For Daily Use) - PO 17 gm DAILY SIMON Administration Rivaroxaban 15 mg 03/13/16 10:00 03/18/16 10:06 Xarelto - PO 15 mg DAILY SIMON Administration ASSESSMENT/PLAN: The patient is a 85 year old female, with a significant past medical history of hypertension, RA, CAD (w stents), who presents to the emergency department with left knee pain and left thigh s/p fall. The patient denies hitting her head or feeling lightheaded. She denies chest pain, headache and dizziness. She denies fever, chills, nausea, vomit or any other discomfort. ID: Leukocytosis - Acute and now improving/WBC now 13.1 Assessment/Plan: WBC improving, afebrile. Blood cultures and urine cultures sent ID and Pulmonary consulted: On empiric Ceftriaxone 1gm ordered GI: Elevated LFTs - acute Assessment/Plan: AST/ALT elevated, but trending down Will trend and if continues to be elevated, will order Liver US Abdominal exam negative Zantac stopped as it may cause hepatotoxicity, Amiodorone stopped by Cardiology Trend liver enzymes, Hep panel ordered. Orthopedics: Fracture of the proximal tibia and fibula - acute Assessment/Plan: On LLE immobilizer, good pedal pulses, not a surgical candidate. Plan is to send her out to outpatient PT once medically stable Physical therapy following Cardiology: Hypertension - chronic Assessment/Plan: Increased Lisinopril to 5mg daily and Metoprolol 25mg BID Monitor BPs Pulmonary: Shortness of breath - acute/improving/able to tolerate room air-oxygen prn Assessment/Plan: Chest xray shows congestion and a mass on right lung: CT of chest findings consistent with bilateral pneumonia with bilateral pleural effusions and possible underlying CHF Elevated BNP, received Lasix 60mg total dose yesterday Troponins elevated 0.11, 0.10, 0.07 Cardiology following : Acute Kidney Injury: resolving Assessment/Plan: Continue to monitor Hematology: Thrombocytopenia - acute Assessment/Plan: Noted platelets to drop from admission, now trending up She is currently on Xarelto 15mg daily which is a home medication - continue as pt is high risk for DVT secondary to acute fracture/immobility Needs close monitoring F.E.N. Tolerating PO fluids Hyponatremia 2.9; 3 K riders and repeat K level at 1730 Regular diet Prophylaxis: GI: colace prn DVT: Xarelto 15mg daily, SCD on right leg Physical therapy Disposition: Rehab once medically cleared. Requires inpatient hospitalization. Full code. Visit type - Emergency Visit Emergency Visit: Yes ED Registration Date: 03/13/16 Care time: The patient presented to the Emergency Department on the above date and was hospitalized for further evaluation of their emergent condition. - New Patient This patient is new to me today: No - Critical Care Critical Care patient: No - Discharge Referral Referred to [facility] Med P.C[facility] No
--- NOTE | 2016-03-18 15:53 | PN ---
Progress Note, Physician Chief Complaint: Pt alert and oriented x 3; denies chest pain or dyspnea; denies palpitations. Occasional leg pain (s/p left LE fracture) and right UE mild pain at IV site. Her son, Geronimo, is at bedside. History of Present Illness: The patient is an 85 year old female (. [place]), with a significant past medical history of HTN, paroxysmal atrial fibrillation, RA, CAD (stent placed), who presents to the emergency department with L knee pain and L thigh s/p fall ( denies syncope). The patients daughter is at bedside and reports she misstepped while climbing down the stairs. The patient denies any further complaints or any injury. She denies chest pain, headache and dizziness. She denies fever, chills, nausea, vomit, diarrhea and constipation. She denies dysuria, frequency, urgency and hematuria. - Current Medication List Current Medications: Active Medications Bacitracin (Bacitracin -) 1 applic TP DAILY [facility] Last Admin: 03/18/16 10:05 Dose: 1 applic Ceftriaxone Sodium (Rocephin 1gm Ivpb (Pre-Docked)) 50 mls @ 100 mls/hr IVPB DAILY [facility] Last Admin: 03/18/16 10:01 Dose: 100 mls/hr Levothyroxine Sodium (Synthroid -) 50 mcg PO AM [facility] Last Admin: 03/18/16 06:11 Dose: 50 mcg Lisinopril (Prinivil) 5 mg PO DAILY [facility] Last Admin: 03/18/16 10:04 Dose: 5 mg Metoprolol Succinate (Toprol Xl -) 25 mg PO BID [facility] Last Admin: 03/18/16 10:05 Dose: 25 mg Oxycodone HCl (Roxicodone -) 5 mg PO Q4H PRN PRN Reason: PAIN Last Admin: 03/18/16 02:52 Dose: 5 mg Polyethylene Glycol (Miralax (For Daily Use) -) 17 gm PO DAILY [facility] Last Admin: 03/18/16 10:05 Dose: 17 gm Rivaroxaban (Xarelto -) 15 mg PO DAILY [facility] Last Admin: 03/18/16 10:06 Dose: 15 mg - Objective Vital Signs: Vital Signs Temperature 97.5 F L 03/18/16 15:38 Pulse Rate 109 H 03/18/16 15:38 Respiratory Rate 20 03/18/16 09:28 Blood Pressure 123/73 03/18/16 15:38 O2 Sat by Pulse Oximetry (%) 95 03/18/16 09:00 Constitutional: Yes: No Distress Eyes: Yes: WNL HENT: Yes: WNL Neck: Yes: WNL Cardiovascular: Yes: Regular Rate and Rhythm Respiratory: Yes: Regular Gastrointestinal: Yes: Soft ...Rectal Exam: Yes: Deferred Genitourinary: No: Anuria Musculoskeletal: Yes: Muscle Weakness Extremities: Yes: Cool Edema: No Peripheral Pulses WNL: Yes Integumentary: Yes: WNL Psychiatric: Yes: Alert, Oriented Labs: CBC, BMP 03/18/16 07:15 03/18/16 07:15 INR, PTT INR 2.17 (0.82-1.09) H D 03/17/16 09:40 Abnormal Lab Results 03/18/16 03/18/16 03/18/16 07:15 07:15 22:10 WBC 13.1 H 11.8 H RBC 3.36 L MCV 97.8 H 97.5 H Neutrophils % 85.5 H Lymphocytes % 5.0 L 6.6 L D Potassium 2.9 L* D BUN 22 H Calcium 7.5 L Total Bilirubin 1.6 H AST 60 H D ALT 117 H Alkaline Phosphatase 127 H B-Natriuretic Peptide 08819.58 H Total Protein 5.1 L Albumin 2.4 L Problem List - Problems (1) Fall Code(s): W19.XXXA - UNSPECIFIED FALL, INITIAL ENCOUNTER (2) Fracture of proximal end of fibula Assessment/Plan: healing without surgery. Pain management; physical rehabilitation. Code(s): S82.839A - OTH FRACTURE OF UPPER AND LOWER END OF UNSP FIBULA, INIT Qualifiers: Encounter type: initial encounter Fracture type: closed (3) Afib Assessment/Plan: On metoprolol ER for HR control (VR presently 80 bpm). Stopped amiodarone (elevated LFTs); f/u whether this medication is necessary going forward. TSH 1.13. On Xarelto 15 mg daily. Code(s): I48.91 - UNSPECIFIED ATRIAL FIBRILLATION (4) CHF (congestive heart failure) Assessment/Plan: ECHO: normal LVEF and RVEF; abnormal diastolic compliance; moderate biatrial enlargement; severe TR. Elevated BNP; elevated JVD. Less short of breath; still able to speak in complete sentences without distress. On metoprolol, lisinopril; off furosemide. F/u electrolytes (replete K+, which is 2.9 today), Is and Os, BUN/Cr, daily weights. F/u magnesium. D/c amiodarone for the present (LFTs have doubled in past 24 hours, possibley from CHF, and are now decreasing). F/u workup. Treat pneumonia. TSH WNL (on Synthroid). Code(s): I50.9 - HEART FAILURE, UNSPECIFIED (5) Pneumonia Code(s): J18.9 - PNEUMONIA, UNSPECIFIED ORGANISM (6) Elevated troponin I level Code(s): R79.89 - OTHER SPECIFIED ABNORMAL FINDINGS OF BLOOD CHEMISTRY (8) Elevated LFTs Code(s): R79.89 - OTHER SPECIFIED ABNORMAL FINDINGS OF BLOOD CHEMISTRY
--- NOTE | 2016-03-18 16:54 | PN ---
Progress Note (short form) - Note Progress Note: GASTROENTEROLOGY CONSULT CALLED BEFORE 8 AM SO COVERAGE PHYSICIAN IS PHYSICIAN [employer] OPERATOR FOR February. IF CONSULT IS STILL NEEDED, PLEASE CALL YESTERDAY'S COVERING MD. SPOKE WITH HOSPITALIST THIS AM FABY GARDINER MD
--- NOTE | 2016-03-18 22:16 | HOSP ---
Subjective - Review of Symptoms Events since last encounter: called to assess patient due to rapid a fib on ekg Subjective: patient resting in bed comfortably, nad. afebrile, normotensive, RR 12, HR 125 irregularly irregular. States that she feels well, denies chest pain, h/a, dizziness, lightheadedness, loc, sob, abd pain, numbness. General: No: Chills, Night Sweats, Fatigue, Malaise, Appetite HEENT: No: Head Aches, Visual Changes Cardiovascular: No: Chest Pain, Palpitations, Orthopnea, Paroxysmal Noc. Dyspnea , Edema, Light Headedness, Other Gastrointestinal: No: Nausea, Vomiting, Abdominal Pain Musculoskeletal: Yes: No Symptoms Neurological: No: Weakness, Confusion Physical Examination Vital Signs: Vital Signs Temperature 97.8 F 03/18/16 21:10 Pulse Rate 80 03/18/16 21:10 Respiratory Rate 20 03/18/16 21:10 Blood Pressure 120/70 03/18/16 21:10 O2 Sat by Pulse Oximetry (%) 95 03/18/16 09:00 Constitutional: Yes: No Distress, Calm Eyes: Yes: Conjunctiva Clear, PERRL HENT: Yes: Normocephalic Neck: Yes: Supple Cardiovascular: Yes: Tachycardia, S1, S2, Other (irregularly irregular) Respiratory: Yes: Regular, CTA Bilaterally Gastrointestinal: Yes: Normal Bowel Sounds, Soft Extremities: Yes: WNL Peripheral Pulses: Left Radial: 2+, Right Radial: 2+ Neurological: Yes: Alert, Oriented Psychiatric: Yes: Alert, Oriented Labs: CBC, BMP 03/18/16 07:15 03/18/16 17:10 Hospitalist Encounter Assessment: patient in rapid a fib, hemodynamically stable and asymptomatic. -metoprolol given at 9 pm, will ask to reassess in a few hours. -if rate >125 and normotensive, will order lopressor 5 mg Visit type - Emergency Visit Emergency Visit: No - New Patient This patient is new to me today: Yes Date on this admission: 03/18/16 - Critical Care Critical Care patient: No
[2016-03-18 22:29] LABS: BASOPHIL 0.1 % (0-2.0); EOSINOPHIL 1.2 % (0-4.5); MCH 31.2 pg (25.7-33.7); MEAN CELL VOLUME 97.5 fl (80-96); NEUTROPHILS 82.8 % (42.8-82.8); PLATELET COUNT 230 K/MM3 (134-434); RDW 13.9 % (11.6-15.6); WHITE BLOOD COUNT 11.8 K/mm3 (4.0-10.0)
[2016-03-18 22:52] LABS: TROPONIN I 0.02 ng/ml (0.00-0.05)
[2016-03-18] MEDS ORDERED: METOPROLOL TARTRATE 5 MG/5 ML VIAL IVPUSH ONE (23:16)
[2016-03-18] MEDS ORDERED: FUROSEMIDE 40 MG/4 ML INJECTABLE VIAL IVPUSH ONE (23:16)
--- NOTE | 2016-03-18 23:18 | HOSP ---
Subjective - Review of Symptoms Events since last encounter: Called to see pt as HR was in 120s. ECG revealed Afib with RVR. Also pulse ox 91 % on 4LNC Subjective: Pt with no complaints on exam. Denies CP, SOB, palpitations. Cardiovascular: No: Chest Pain, Palpitations, Orthopnea Physical Examination Vital Signs: Vital Signs - 24 hr 3 03/18/16 03/18/16 03/18/16 06:00 09:00 09:28 Temperature 97.6 F 98.1 F Pulse Rate 98 H 100 H Respiratory 18 20 Rate Blood Pressure 146/88 121/72 O2 Sat by Pulse 95 Oximetry (%) 3 03/18/16 03/18/16 03/18/16 15:38 20:59 21:10 Temperature 97.5 F L 97.7 F 97.8 F Pulse Rate 109 H 120 H 80 Respiratory 22 20 Rate Blood Pressure 123/73 131/87 120/70 O2 Sat by Pulse Oximetry (%) 3 03/18/16 03/18/16 22:40 23:20 Temperature 97.7 F Pulse Rate 129 H 130 H Respiratory 20 Rate Blood Pressure 151/90 132/85 O2 Sat by Pulse Oximetry (%) Constitutional: Yes: Well Nourished, No Distress, Calm Cardiovascular: Yes: Tachycardia, Pulse Irregular, S1, S2. No: Gallop, Murmur, Rub Respiratory: Yes: Other (crackles bilat bases) Gastrointestinal: Yes: Normal Bowel Sounds, Soft. No: Tenderness Labs: CBC, BMP 03/18/16 22:10 Hospitalist Encounter Assessment: Afib with RVR, received toprol 25XL at 9pm. Will give 5mg IVP now. Consider changing to lopressor 25mg TID CHF: lasix 40mg x 1 now. stat labs ordered
[2016-03-19 04:51] LABS: CREATININE 0.8 mg/dl (0.6-1.3)
[2016-03-19 04:52] LABS: CALCIUM 7.6 mg/dl (8.4-10.2)
[2016-03-19] MEDS: METOPROLOL TARTRATE 25 MG TABLET (FP) PO SCH ×3 (05:34→21:53)
[2016-03-19] MEDS: oxyCODONE HCL 5 MG TABLET PO PRN (05:35)
[2016-03-19] MEDS: LEVOTHYROXINE NA 50 MCG TABLET (FP) PO SCH (06:04)
[2016-03-19 08:02] LABS: BASOPHIL 0.1 % (0-2.0); EOSINOPHIL 1.5 % (0-4.5); MCH 32.1 pg (25.7-33.7); MCHC 33.1 g/dl (32.0-36.0); MEAN CELL VOLUME 96.9 fl (80-96); NEUTROPHILS 82.7 % (42.8-82.8); PLATELET COUNT 210 K/MM3 (134-434); RDW 13.6 % (11.6-15.6); WHITE BLOOD COUNT 11.2 K/mm3 (4.0-10.0)
[2016-03-19 08:15] LABS: ALBUMIN 2.3 g/dl (3.4-5.0); ANION GAP 10 (8-16); CALCIUM 7.5 mg/dL (8.5-10.1); CO2 32 mmol/L (21-32); GLUCOSE,RANDOM 92 mg/dL (74-106); MAGNESIUM 1.8 mg/dL (1.8-2.4); SGOT/AST 32 U/L (15-37); SGPT/ALT 87 U/L (12-78)
[2016-03-19 08:20] LABS: ALK PHOS 116 U/L (45-117); BILIRUBIN,TOTAL 1.4 mg/dL (0.2-1.0); CREATININE 0.7 mg/dL (0.55-1.02); TOT PROT 5.1 g/dl (6.4-8.2); TROPONIN I < 0.02 ng/ml (0.00-0.05)
[2016-03-19] MEDS ORDERED: POTASSIUM CHLORIDE 40 MEQ/30 ML UNIT DOSE CUP PO ONE (08:27)
[2016-03-19] MEDS ORDERED: PT OWN MED DRAWER 7, Y5N ONE (09:50)
[2016-03-19] MEDS: CEFTRIAXONE 50 ML IVPB SCH (09:59)
[2016-03-19] MEDS: RIVAROXABAN 15 MG TABLET PO SCH (09:59)
[2016-03-19] MEDS: LISINOPRIL 5 MG TABLET (FP) PO SCH (09:59)
[2016-03-19] MEDS: POLYETHYLENE GLYCOL 3350 119 GM BTL PO SCH (10:00)
[2016-03-19] MEDS ORDERED: METOPROLOL TARTRATE 5 MG/5 ML VIAL IVPUSH PRN (10:43)
--- NOTE | 2016-03-19 10:44 | PN ---
Progress Note, Physician History of Present Illness: seen and examined today in nad. events overnight reviewed, pt had afib 120s and was moved to telemetry given IV lopressor and lasix. no new complaints. this am. denies palpitations or sob. - Current Medication List Current Medications: Active Medications Bacitracin (Bacitracin -) 1 applic TP DAILY [facility] Last Admin: 03/18/16 10:05 Dose: 1 applic Ceftriaxone Sodium (Rocephin 1gm Ivpb (Pre-Docked)) 50 mls @ 100 mls/hr IVPB DAILY [facility] Last Admin: 03/19/16 09:59 Dose: 100 mls/hr Levothyroxine Sodium (Synthroid -) 50 mcg PO AM [facility] Last Admin: 03/19/16 06:04 Dose: 50 mcg Lisinopril (Prinivil) 5 mg PO DAILY [facility] Last Admin: 03/19/16 09:59 Dose: 5 mg Metoprolol Tartrate (Lopressor -) 25 mg PO TID [facility] Last Admin: 03/19/16 05:34 Dose: 25 mg Oxycodone HCl (Roxicodone -) 5 mg PO Q4H PRN PRN Reason: PAIN Last Admin: 03/19/16 05:35 Dose: 5 mg Polyethylene Glycol (Miralax (For Daily Use) -) 17 gm PO DAILY [facility] Last Admin: 03/19/16 10:00 Dose: 17 gm Potassium Chloride (K-Dur -) 20 meq PO ONCE ONE Stop: 03/19/16 11:01 Rivaroxaban (Xarelto -) 15 mg PO DAILY [facility] Last Admin: 03/19/16 09:59 Dose: 15 mg - Objective Vital Signs: Vital Signs Temperature 98.2 F 03/19/16 07:09 Pulse Rate 105 H 03/19/16 07:09 Respiratory Rate 18 03/19/16 07:09 Blood Pressure 132/79 03/19/16 07:09 O2 Sat by Pulse Oximetry (%) 96 03/18/16 23:40 Constitutional: Yes: Well Nourished, No Distress, Calm Eyes: Yes: WNL, Conjunctiva Clear, EOM Intact, PERRL HENT: Yes: WNL, Atraumatic, Normocephalic Neck: Yes: WNL, Supple, Trachea Midline Cardiovascular: Yes: Tachycardia, Pulse Irregular, S1, S2. No: Bradycardia, Bruit, JVD, Gallop, Murmur, Rub, S3, S4, Varicosities Respiratory: Yes: Regular, Rales. No: Rhonchi, SOB, Wheezes Gastrointestinal: Yes: WNL, Normal Bowel Sounds, Soft. No: Distention, Tenderness Musculoskeletal: Yes: WNL Extremities: Yes: WNL Edema: No Peripheral Pulses WNL: Yes Peripheral Pulses: Left Doralis Pedis: 2+, Right Dorsalis Pedis: 2+ Integumentary: Yes: WNL Neurological: Yes: WNL, Alert, Oriented, Cran Nerves II-XII Intact ...Motor Strength: WNL Psychiatric: Yes: WNL, Alert, Oriented Labs: CBC, BMP 03/19/16 06:00 03/19/16 06:00 INR, PTT INR 2.17 (0.82-1.09) H D 03/17/16 09:40 - ....Imaging Chest X-ray: Report Reviewed, Image Reviewed EKG: Report Reviewed, Image Reviewed Other: Report Reviewed, Image Reviewed (tele-Afib with RVR at times, PVCs) Assessment/Plan Atrial fibrillation-with episodes of RVR -previously on amiodarone but stopped due to elevated LFTs -lopressor was increased to 25mg tid -if HR still uncontrolled today would titrate up lopressor -will order prn IV Lopressor -cont Xarelto -cont tele monitoring CHF-acute on chronic diastolic CHF likely exacerbated by Afib with RVR -HR control -can dose IV Lasix again today and re-evaluate if additional doses needed -monitor I/os and daily weights -replete electrolytes -cont metoprolol and lisinopril
[2016-03-19] MEDS ORDERED: FUROSEMIDE 40 MG/4 ML INJECTABLE VIAL IVPUSH ONE (10:46)
[2016-03-19] MEDS ORDERED: POTASSIUM CHLORIDE TABS 20 MEQ TABLET.ER (FP) PO ONE (11:00)
[2016-03-19 11:12] LABS: TROPONIN I < 0.02 ng/ml (0.00-0.05)
[2016-03-19] MEDS ORDERED: FUROSEMIDE 40 MG TABLET (FP) PO ONE (11:12)
[2016-03-19] MEDS ORDERED: FUROSEMIDE 40 MG/4 ML INJECTABLE VIAL ONE (11:24)
[2016-03-19] MEDS: BACITRACIN 30 GM TUBE TOPICAL OINTMENT TP SCH ×2 (11:34→11:36)
[2016-03-19 14:09] LABS: HEP B SURFACE AB Non Reactive (.)
--- NOTE | 2016-03-19 16:29 | PN ---
Physical Exam: SUBJECTIVE: Patient seen and examined. She was sitting up in her bed, in no acute distress. She denies any chest pain, discomfort. Rapid atrial fibrillation with RVR overnight. Toprol 25xl BID changed to Lopressor 25mg TID. One dose of Lasix 40mg given for shortness of breath overnight. OBJECTIVE: GENERAL: Awake, alert, and fully oriented, in no acute distress. HEAD: Normal with no signs of trauma. EYES: Pupils equal, round and reactive to light, extraocular movements intact, sclera anicteric, conjunctiva clear. No lid lag. EARS, NOSE, THROAT: Ears normal, nares patent, oropharynx clear without exudates. Moist mucous membranes. LUNGS: Scattered crackles bilaterally. ABDOMEN: Soft, nontender, not distended, normoactive bowel sounds MUSCULOSKELETAL: fracture of the left proximal tibia and fibula UPPER EXTREMITIES: 2+ pulses, warm, well-perfused. No cyanosis. No clubbing. Cap refill <2 seconds. No peripheral edema. Vital Signs Period Temp Pulse Resp BP Sys/Gandara Pulse Ox Last 24 Hr 97.7 F-98.3 F 80-130 18-22 83-151/50-90 91-96 Laboratory Results - last 24 hr 03/18/16 03/18/16 03/18/16 07:15 17:10 17:10 WBC RBC Hgb Hct MCV MCHC RDW Plt Count MPV Neutrophils % Lymphocytes % Monocytes % Eosinophils % Basophils % Sodium Potassium 3.6 D Chloride Carbon Dioxide Anion Gap BUN Creatinine Creat Clearance w eGFR Random Glucose Calcium Magnesium 1.8 Total Bilirubin AST ALT Alkaline Phosphatase Creatine Kinase Troponin I Total Protein Albumin Hepatitis A IgM Ab Negative Hepatitis A Ab Total Positive H Hep Bs Antigen Negative Hep Bs Antibody Non reactive Hep B Core Total Ab Negative 03/18/16 03/18/16 03/19/16 22:10 22:10 06:00 WBC 11.8 H 11.2 H RBC 3.65 3.49 L Hgb 11.4 11.2 Hct 35.6 33.8 MCV 97.5 H 96.9 H MCHC 32.0 33.1 RDW 13.9 13.6 Plt Count 230 D 210 MPV 9.0 9.0 Neutrophils % 82.8 82.7 Lymphocytes % 6.6 L D 6.5 L Monocytes % 9.3 9.2 Eosinophils % 1.2 1.5 Basophils % 0.1 0.1 Sodium 145 Potassium 3.8 Chloride 105 Carbon Dioxide 27 Anion Gap 13 BUN 28 H Creatinine 0.8 Creat Clearance w eGFR Random Glucose 124 H Calcium 7.6 L Magnesium Total Bilirubin AST ALT Alkaline Phosphatase Creatine Kinase 49 Troponin I 0.02 Total Protein Albumin Hepatitis A IgM Ab Hepatitis A Ab Total Hep Bs Antigen Hep Bs Antibody Hep B Core Total Ab 03/19/16 03/19/16 03/19/16 06:00 06:00 09:50 WBC RBC Hgb Hct MCV MCHC RDW Plt Count MPV Neutrophils % Lymphocytes % Monocytes % Eosinophils % Basophils % Sodium 143 Potassium 3.0 L Chloride 101 Carbon Dioxide 32 Anion Gap 10 BUN 24 H Creatinine 0.7 Creat Clearance w eGFR > 60 Random Glucose 92 Calcium 7.5 L Magnesium 1.8 Total Bilirubin 1.4 H AST 32 D ALT 87 H D Alkaline Phosphatase 116 Creatine Kinase 44 Cancelled 43 Troponin I < 0.02 Cancelled < 0.02 Total Protein 5.1 L Albumin 2.3 L Hepatitis A IgM Ab Hepatitis A Ab Total Hep Bs Antigen Hep Bs Antibody Hep B Core Total Ab Active Medications Generic Name Dose Route Start Last Admin Trade Name Freq PRN Reason Stop Dose Admin Bacitracin 1 applic 03/16/16 15:00 03/19/16 11:36 Bacitracin - TP 1 applic DAILY [facility] Administration Ceftriaxone Sodium 50 mls @ 100 mls/hr 03/17/16 12:15 03/19/16 09:59 Rocephin 1gm Ivpb (Pre-Docked) IVPB 100 mls/hr DAILY [facility] Administration Levothyroxine Sodium 50 mcg 03/14/16 07:00 03/19/16 06:04 Synthroid - PO 50 mcg AM [facility] Administration Lisinopril 5 mg 03/17/16 10:00 03/19/16 09:59 Prinivil PO 5 mg DAILY [facility] Administration Metoprolol Tartrate 25 mg 03/19/16 06:00 03/19/16 14:27 Lopressor - PO Not Given TID [facility] Metoprolol Tartrate 5 mg 03/19/16 10:43 Lopressor Injection - IVPUSH Q4H PRN TACHYCARDIA Oxycodone HCl 5 mg 03/13/16 07:46 03/19/16 05:35 Roxicodone - PO 5 mg Q4H PRN Administration PAIN Polyethylene Glycol 17 gm 03/15/16 17:00 03/19/16 10:00 Miralax (For Daily Use) - PO 17 gm DAILY [facility] Administration Rivaroxaban 15 mg 03/13/16 10:00 03/19/16 09:59 Xarelto - PO 15 mg DAILY [facility] Administration ASSESSMENT/PLAN: The patient is a 85 year old female, with a significant past medical history of hypertension, RA, CAD (w stents), who presents to the emergency department with left knee pain and left thigh s/p fall. The patient denies hitting her head or feeling lightheaded. She denies chest pain, headache and dizziness. She denies fever, chills, nausea, vomit or any other discomfort. ID: Leukocytosis - Acute and now improving/WBC trending down to 11.2 Assessment/Plan: WBC improving, afebrile. Blood cultures pending, urine cultures resent ID and Pulmonary consulted: On empiric Ceftriaxone 1gm ordered GI: Elevated LFTs - acute Assessment/Plan: AST/ALT elevated, but continues to trend down Abdominal exam negative Zantac stopped as it may cause hepatotoxicity, Amiodorone stopped by Cardiology Trend liver enzymes, Hep panel ordered. Orthopedics: Fracture of the proximal tibia and fibula - acute Assessment/Plan: On LLE immobilizer, good pedal pulses, not a surgical candidate. Plan is to send her out to outpatient PT once medically stable Physical therapy following Cardiology: Hypertension - chronic Assessment/Plan: Increased Lisinopril to 5mg daily and now on Lopressor TID secondary to afib overnight Monitor BPs Hypotension - acute Asessment/Plan: Likely secondary to Lasix. Monitor BPs closely Pulmonary: Shortness of breath - acute/improving/able to tolerate room air-oxygen prn Assessment/Plan: Chest xray shows congestion and a mass on right lung: CT of chest findings consistent with bilateral pneumonia with bilateral pleural effusions and possible underlying CHF Elevated BNP, received Lasix 40mg IV today Troponins elevated 0.11, 0.10, 0.07 Cardiology following : Acute Kidney Injury: resolving Assessment/Plan: Continue to monitor Hematology: Thrombocytopenia - acute Assessment/Plan: Noted platelets to drop from admission, now trending up She is currently on Xarelto 15mg daily which is a home medication - continue as pt is high risk for DVT secondary to acute fracture/immobility Needs close monitoring F.E.N. Tolerating PO fluids Hyponatremia 3.0: Kcl 40mg oral ordered followed by KCL 20mg orally. Regular diet Prophylaxis: GI: colace prn DVT: Xarelto 15mg daily, SCD on right leg Physical therapy Disposition: Rehab once medically cleared. Requires inpatient hospitalization. Full code Visit type - Emergency Visit Emergency Visit: Yes ED Registration Date: 03/13/16 Care time: The patient presented to the Emergency Department on the above date and was hospitalized for further evaluation of their emergent condition. - New Patient This patient is new to me today: No - Critical Care Critical Care patient: No - Discharge Referral Referred to [facility] No
--- NOTE | 2016-03-19 16:32 | PN ---
Progress Note, Physician History of Present Illness: feels better breathing better - Current Medication List Current Medications: Active Medications Bacitracin (Bacitracin -) 1 applic TP DAILY [facility] Last Admin: 03/19/16 11:36 Dose: 1 applic Ceftriaxone Sodium (Rocephin 1gm Ivpb (Pre-Docked)) 50 mls @ 100 mls/hr IVPB DAILY [facility] Last Admin: 03/19/16 09:59 Dose: 100 mls/hr Levothyroxine Sodium (Synthroid -) 50 mcg PO AM [facility] Last Admin: 03/19/16 06:04 Dose: 50 mcg Lisinopril (Prinivil) 5 mg PO DAILY [facility] Last Admin: 03/19/16 09:59 Dose: 5 mg Metoprolol Tartrate (Lopressor -) 25 mg PO TID [facility] Last Admin: 03/19/16 14:27 Dose: Not Given Metoprolol Tartrate (Lopressor Injection -) 5 mg IVPUSH Q4H PRN PRN Reason: TACHYCARDIA Oxycodone HCl (Roxicodone -) 5 mg PO Q4H PRN PRN Reason: PAIN Last Admin: 03/19/16 05:35 Dose: 5 mg Polyethylene Glycol (Miralax (For Daily Use) -) 17 gm PO DAILY [facility] Last Admin: 03/19/16 10:00 Dose: 17 gm Rivaroxaban (Xarelto -) 15 mg PO DAILY [facility] Last Admin: 03/19/16 09:59 Dose: 15 mg - Objective Vital Signs: Vital Signs Temperature 98.3 F 03/19/16 14:42 Pulse Rate 105 H 03/19/16 14:42 Respiratory Rate 20 03/19/16 14:42 Blood Pressure 83/50 03/19/16 14:42 O2 Sat by Pulse Oximetry (%) 96 03/19/16 11:20 Constitutional: Yes: No Distress, Calm Cardiovascular: Yes: Regular Rate and Rhythm Respiratory: Yes: Regular Gastrointestinal: Yes: Normal Bowel Sounds, Soft Musculoskeletal: Yes: WNL Extremities: Yes: WNL Labs: CBC, BMP 03/19/16 06:00 03/19/16 06:00 INR, PTT INR 2.17 (0.82-1.09) H D 03/17/16 09:40 Assessment/Plan evaluated.images seen patient to get a ct scan of the chest currently on ceftriaxone Problem List - Problems (1) Fall Code(s): W19.XXXA - UNSPECIFIED FALL, INITIAL ENCOUNTER (2) Fracture of proximal end of fibula Code(s): S82.839A - OTH FRACTURE OF UPPER AND LOWER END OF UNSP FIBULA, INIT Qualifiers: Encounter type: initial encounter Fracture type: closed (3) Tibial plateau fracture, left Code(s): S82.142A - DISPLACED BICONDYLAR FRACTURE OF LEFT TIBIA, INIT Qualifiers: Encounter type: initial encounter Fracture type: closed Qualified Code(s): S82.142A - Displaced bicondylar fracture of left tibia, initial encounter for closed fracture (4) Afib Code(s): I48.91 - UNSPECIFIED ATRIAL FIBRILLATION (5) UTI (urinary tract infection) Code(s): N39.0 - URINARY TRACT INFECTION, SITE NOT SPECIFIED (6) Lung mass Code(s): R91.8 - OTHER NONSPECIFIC ABNORMAL FINDING OF LUNG FIELD plan continue ceftriaxone monitor wbc await for cx reports rest as per medicine team
[2016-03-20] MEDS: oxyCODONE HCL 5 MG TABLET PO PRN (03:53)
[2016-03-20] MEDS: LEVOTHYROXINE NA 50 MCG TABLET (FP) PO SCH (07:01)
[2016-03-20] MEDS: METOPROLOL TARTRATE 25 MG TABLET (FP) PO SCH ×3 (07:01→21:09)
[2016-03-20 07:16] LABS: BASOPHIL 0.2 % (0-2.0); EOSINOPHIL 2.4 % (0-4.5); MCH 32.3 pg (25.7-33.7); MCHC 32.9 g/dl (32.0-36.0); MEAN CELL VOLUME 98.3 fl (80-96); MEAN PLT VOLUME 8.6 fl (7.5-11.1); NEUTROPHILS 81.1 % (42.8-82.8); PLATELET COUNT 248 K/MM3 (134-434); RDW 13.8 % (11.6-15.6); WHITE BLOOD COUNT 10.2 K/mm3 (4.0-10.0)
[2016-03-20 08:04] LABS: ALBUMIN 2.3 g/dl (3.4-5.0); ALK PHOS 112 U/L (45-117); ANION GAP 6 (8-16); CALCIUM 8.1 mg/dL (8.5-10.1); CO2 31 mmol/L (21-32); CREATININE 0.8 mg/dL (0.55-1.02); GLUCOSE,RANDOM 92 mg/dL (74-106); MAGNESIUM 2.1 mg/dL (1.8-2.4); SGOT/AST 18 U/L (15-37); SGPT/ALT 61 U/L (12-78)
[2016-03-20] MEDS ORDERED: PT OWN MED DRAWER 7, Y5N ONE ×2 (09:58→19:30)
[2016-03-20] MEDS: BACITRACIN 30 GM TUBE TOPICAL OINTMENT TP SCH (10:04)
[2016-03-20] MEDS: POLYETHYLENE GLYCOL 3350 119 GM BTL PO SCH (10:04)
[2016-03-20] MEDS: RIVAROXABAN 15 MG TABLET PO SCH (10:04)
[2016-03-20] MEDS: CEFTRIAXONE 50 ML IVPB SCH (10:04)
[2016-03-20] MEDS: LISINOPRIL 5 MG TABLET (FP) PO SCH (10:06)
--- NOTE | 2016-03-20 11:17 | PN ---
Progress Note, Physician History of Present Illness: seen and examined today in [employer] [facility]. no overnight events. no new complaints. - Current Medication List Current Medications: Active Medications Bacitracin (Bacitracin -) 1 applic TP DAILY [facility] Last Admin: 03/20/16 10:04 Dose: 1 applic Ceftriaxone Sodium (Rocephin 1gm Ivpb (Pre-Docked)) 50 mls @ 100 mls/hr IVPB DAILY [facility] Last Admin: 03/20/16 10:04 Dose: 100 mls/hr Levothyroxine Sodium (Synthroid -) 50 mcg PO AM [facility] Last Admin: 03/20/16 07:01 Dose: 50 mcg Lisinopril (Prinivil) 5 mg PO DAILY [facility] Last Admin: 03/20/16 10:06 Dose: Not Given Metoprolol Tartrate (Lopressor -) 25 mg PO TID [facility] Last Admin: 03/20/16 07:01 Dose: 25 mg Metoprolol Tartrate (Lopressor Injection -) 5 mg IVPUSH Q4H PRN PRN Reason: TACHYCARDIA Oxycodone HCl (Roxicodone -) 5 mg PO Q4H PRN PRN Reason: PAIN Last Admin: 03/20/16 03:53 Dose: 5 mg Polyethylene Glycol (Miralax (For Daily Use) -) 17 gm PO DAILY [facility] Last Admin: 03/20/16 10:04 Dose: 17 gm Rivaroxaban (Xarelto -) 15 mg PO DAILY [facility] Last Admin: 03/20/16 10:04 Dose: 15 mg - Objective Vital Signs: Vital Signs Temperature 97.9 F 03/20/16 10:16 Pulse Rate 105 H 03/20/16 10:16 Respiratory Rate 22 03/20/16 10:16 Blood Pressure 83/39 03/20/16 10:16 O2 Sat by Pulse Oximetry (%) 95 03/19/16 21:00 Constitutional: Yes: Well Nourished, No Distress, Calm Eyes: Yes: WNL, Conjunctiva Clear, EOM Intact, PERRL HENT: Yes: WNL, Atraumatic, Normocephalic Neck: Yes: WNL, Supple, Trachea Midline Cardiovascular: Yes: Pulse Irregular, S1, S2. No: Bradycardia, Tachycardia, Bruit, JVD, Gallop, Murmur, Rub, S3, S4, Varicosities Respiratory: Yes: Regular, Rales (base). No: Rhonchi, Wheezes Gastrointestinal: Yes: WNL, Normal Bowel Sounds, Soft. No: Distention, Tenderness Musculoskeletal: Yes: WNL Extremities: Yes: WNL Edema: No Peripheral Pulses WNL: Yes Peripheral Pulses: Left Doralis Pedis: 2+, Right Dorsalis Pedis: 2+ Integumentary: Yes: WNL Neurological: Yes: WNL, Alert, Oriented, Cran Nerves II-XII Intact ...Motor Strength: WNL Psychiatric: Yes: WNL, Alert, Oriented Labs: CBC, BMP 03/20/16 06:00 03/20/16 06:00 INR, PTT INR 2.17 (0.82-1.09) H D 03/17/16 09:40 - ....Imaging Chest X-ray: Report Reviewed, Image Reviewed EKG: Report Reviewed, Image Reviewed Other: Report Reviewed, Image Reviewed (tele-Aflutter/Afib, HR adequately controlled) Assessment/Plan Atrial fibrillation-with episodes of RVR -previously on amiodarone but stopped due to elevated LFTs -cont lopressor 25mg po tid -episode of hypotension this am -if BP does not tolerate uptitration of lopressor can consider digoxin or may need to go back on amiodarone -cont Xarelto -cont tele monitoring CHF-acute on chronic diastolic CHF likely exacerbated by Afib with RVR -HR control -currently overall euvolemic, can hold off on additional Lasix today -monitor I/os and daily weights -replete electrolytes -cont metoprolol and lisinopril as bp tolerates
--- NOTE | 2016-03-20 11:19 | PN ---
Progress Note (short form) - Note Progress Note: ORTHOPEDICALLY STABLE DC TO SNF WHEN MEDICALLY OK
--- NOTE | 2016-03-20 11:49 | PN ---
Progress Note (short form) - Note Progress Note: PULMONARY AWAKE/ALERT APPEARS STABLE/LYING FLAT IN BED NO SOB ANICTERIC DIMINISHED BREATH SOUNDS AT BASES/SCATTERED CRACKLES B/L S1S2 BS+ SOFT NO EDEMA LABS/IMAGING/CT/NOTES REVIEWED Assessment/Plan s/p Fall with left tibia/fibula fracture volume overload/chf now euvolemic as per cardio GGO bilateral/pleural effusions CAD Atrial Fibrillation Pulmonary HTN HTN Elevated LFTs - anticoagulation/diuretics as required - mod-severe pulmonary HTN - empiric ceftriaxone as per ID - O2 as needed - rate controlled - continue anticoagulation Stephane GRANDE MD
[2016-03-20] MEDS ORDERED: LISINOPRIL 5 MG TABLET (FP) PO SCH (15:29)
--- NOTE | 2016-03-20 15:32 | PN ---
Physical Exam: SUBJECTIVE: Patient seen and examined. She was awake, alert and eating her breakfast. Denies chest pain. OBJECTIVE: Vital Signs Period Temp Pulse Resp BP Sys/Gandara Pulse Ox Last 24 Hr 97.5 F-98.3 F 104-122 17-22 83-126/39-90 95-96 GENERAL: Awake, alert, and fully oriented, in no acute distress. HEAD: Normal with no signs of trauma. EYES: Pupils equal, round and reactive to light, extraocular movements intact, sclera anicteric, conjunctiva clear. No lid lag. EARS, NOSE, THROAT: Ears normal, nares patent, oropharynx clear without exudates. Moist mucous membranes. LUNGS: Scattered crackles bilaterally. ABDOMEN: Soft, nontender, not distended, normoactive bowel sounds MUSCULOSKELETAL: fracture of the left proximal tibia and fibula - on an immobilizer UPPER EXTREMITIES: 2+ pulses, warm, well-perfused. No cyanosis. No clubbing. Cap refill <2 seconds. No peripheral edema. Laboratory Results - last 24 hr 03/19/16 03/20/16 03/20/16 18:01 06:00 06:00 WBC 10.2 H RBC 3.40 L Hgb 11.0 Hct 33.5 MCV 98.3 H MCHC 32.9 RDW 13.8 Plt Count 248 MPV 8.6 Neutrophils % 81.1 Lymphocytes % 7.2 L Monocytes % 9.1 Eosinophils % 2.4 Basophils % 0.2 Sodium 144 Potassium 4.0 D 3.6 Chloride 107 Carbon Dioxide 31 Anion Gap 6 L BUN 33 H D Creatinine 0.8 Creat Clearance w eGFR > 60 Random Glucose 92 Calcium 8.1 L Magnesium 2.1 Total Bilirubin 1.0 D AST 18 D ALT 61 D Alkaline Phosphatase 112 Total Protein 5.0 L Albumin 2.3 L Active Medications Generic Name Dose Route Start Last Admin Trade Name Freq PRN Reason Stop Dose Admin Bacitracin 1 applic 03/16/16 15:00 03/20/16 10:04 Bacitracin - TP 1 applic DAILY SIMON Administration Ceftriaxone Sodium 50 mls @ 100 mls/hr 03/17/16 12:15 03/20/16 10:04 Rocephin 1gm Ivpb (Pre-Docked) IVPB 100 mls/hr DAILY SIMON Administration Levothyroxine Sodium 50 mcg 03/14/16 07:00 03/20/16 07:01 Synthroid - PO 50 mcg AM SIMON Administration Lisinopril 2.5 mg 03/20/16 15:29 Prinivil PO DAILY SIMON Metoprolol Tartrate 25 mg 03/19/16 06:00 03/20/16 14:26 Lopressor - PO Not Given TID SIMON Metoprolol Tartrate 5 mg 03/19/16 10:43 Lopressor Injection - IVPUSH Q4H PRN TACHYCARDIA Oxycodone HCl 5 mg 03/13/16 07:46 03/20/16 03:53 Roxicodone - PO 5 mg Q4H PRN Administration PAIN Polyethylene Glycol 17 gm 03/15/16 17:00 03/20/16 10:04 Miralax (For Daily Use) - PO 17 gm DAILY SIMON Administration Rivaroxaban 15 mg 03/13/16 10:00 03/20/16 10:04 Xarelto - PO 15 mg DAILY SIMON Administration ASSESSMENT/PLAN: The patient is a 85 year old female, with a significant past medical history of hypertension, RA, CAD (w stents), who presents to the emergency department with left knee pain and left thigh s/p fall. The patient denies hitting her head or feeling lightheaded. She denies chest pain, headache and dizziness. She denies fever, chills, nausea, vomit or any other discomfort. ID: Leukocytosis - Acute and now improving/WBC trending down to 10.2 Assessment/Plan: WBC improving, afebrile. Blood cultures pending, urine cultures resent (contaminated x 3) ID and Pulmonary consulted: On empiric Ceftriaxone 1gm ordered GI: Elevated LFTs - acute Assessment/Plan: AST/ALT elevated, but continues to trend down Abdominal exam negative Zantac stopped as it may cause hepatotoxicity, Amiodorone stopped by Cardiology Trend liver enzymes, Hep panel Orthopedics: Fracture of the proximal tibia and fibula - acute Assessment/Plan: On LLE immobilizer, good pedal pulses, not a surgical candidate. Plan is to send her out to outpatient PT once medically stable Physical therapy following Cardiology: Hypertension - chronic Hypotension - acute Assessment/Plan: Decreased Lisinopril to 2.5 mg daily, as pt was hypotensive this morning, on Lopressor 25mg TID secondary to afib, may need to decrease Lopressor to 12.5 TID if continues to remain hypotensive vs restarting Amiodorone at lower dose. Monitor BPs Pulmonary: Shortness of breath - acute/improving/able to tolerate room air-oxygen prn Assessment/Plan: Chest xray shows congestion and a mass on right lung: CT of chest findings consistent with bilateral pneumonia with bilateral pleural effusions and possible underlying CHF Will repeat chest xray in the a.m. Troponins elevated 0.11, 0.10, 0.07 Cardiology following : Acute Kidney Injury: resolving Assessment/Plan: Continue to trend Hematology: Thrombocytopenia - acute Assessment/Plan: Noted platelets to drop from admission, now trending up She is currently on Xarelto 15mg daily which is a home medication - continue as pt is high risk for DVT secondary to acute fracture/immobility F.E.N. Tolerating PO fluids Hyponatremia resolved, Mag 2.1 Regular diet Prophylaxis: GI: colace prn DVT: Xarelto 15mg daily, SCD on right leg Physical therapy Disposition: Rehab once medically cleared. Requires inpatient hospitalization. Full code Visit type - Emergency Visit Emergency Visit: Yes ED Registration Date: 03/13/16 Care time: The patient presented to the Emergency Department on the above date and was hospitalized for further evaluation of their emergent condition. - New Patient This patient is new to me today: No - Critical Care Critical Care patient: No - Discharge Referral Referred to [facility] No
[2016-03-21] MEDS: oxyCODONE HCL 5 MG TABLET PO PRN ×2 (06:05→21:33)
[2016-03-21] MEDS: METOPROLOL TARTRATE 25 MG TABLET (FP) PO SCH ×3 (06:06→21:34)
[2016-03-21] MEDS: LEVOTHYROXINE NA 50 MCG TABLET (FP) PO SCH (06:06)
[2016-03-21 07:19] LABS: BASOPHIL 0.3 % (0-2.0); EOSINOPHIL 2.7 % (0-4.5); MCH 32.7 pg (25.7-33.7); MCHC 33.4 g/dl (32.0-36.0); MEAN CELL VOLUME 97.7 fl (80-96); MEAN PLT VOLUME 8.5 fl (7.5-11.1); NEUTROPHILS 80.6 % (42.8-82.8); PLATELET COUNT 289 K/MM3 (134-434); RDW 13.5 % (11.6-15.6); WHITE BLOOD COUNT 9.1 K/mm3 (4.0-10.0)
[2016-03-21 07:57] LABS: ANION GAP 8 (8-16); CALCIUM 7.9 mg/dL (8.5-10.1); CO2 29 mmol/L (21-32); GLUCOSE,RANDOM 96 mg/dL (74-106); MAGNESIUM 2.2 mg/dL (1.8-2.4)
[2016-03-21 08:02] LABS: ALBUMIN 2.2 g/dl (3.4-5.0); ALK PHOS 109 U/L (45-117); BILIRUBIN,TOTAL 1.3 mg/dL (0.2-1.0); CREATININE 0.7 mg/dL (0.55-1.02); SGOT/AST 18 U/L (15-37); SGPT/ALT 46 U/L (12-78); TOT PROT 5.1 g/dl (6.4-8.2)
[2016-03-21] MEDS ORDERED: PT OWN MED DRAWER 7, Y5N ONE (09:40)
[2016-03-21] MEDS: BACITRACIN 30 GM TUBE TOPICAL OINTMENT TP SCH (09:53)
[2016-03-21] MEDS: CEFTRIAXONE 50 ML IVPB SCH (09:54)
[2016-03-21] MEDS: RIVAROXABAN 15 MG TABLET PO SCH (09:54)
[2016-03-21] MEDS: POLYETHYLENE GLYCOL 3350 119 GM BTL PO SCH (10:00)
--- NOTE | 2016-03-21 11:39 | PN ---
Progress Note, Physician History of Present Illness: seen and examined today in nad. states she is feeling well. mild pain LLE. - Current Medication List Current Medications: Active Medications Bacitracin (Bacitracin -) 1 applic TP DAILY [facility] Last Admin: 03/21/16 09:53 Dose: 1 applic Ceftriaxone Sodium (Rocephin 1gm Ivpb (Pre-Docked)) 50 mls @ 100 mls/hr IVPB DAILY [facility] Last Admin: 03/21/16 09:54 Dose: 100 mls/hr Levothyroxine Sodium (Synthroid -) 50 mcg PO AM [facility] Last Admin: 03/21/16 06:06 Dose: 50 mcg Lisinopril (Prinivil) 2.5 mg PO DAILY [facility] Metoprolol Tartrate (Lopressor -) 25 mg PO TID [facility] Last Admin: 03/21/16 06:06 Dose: 25 mg Metoprolol Tartrate (Lopressor Injection -) 5 mg IVPUSH Q4H PRN PRN Reason: TACHYCARDIA Oxycodone HCl (Roxicodone -) 5 mg PO Q4H PRN PRN Reason: PAIN Last Admin: 03/21/16 06:05 Dose: 5 mg Polyethylene Glycol (Miralax (For Daily Use) -) 17 gm PO DAILY [facility] Last Admin: 03/21/16 10:00 Dose: 17 gm Rivaroxaban (Xarelto -) 15 mg PO DAILY [facility] Last Admin: 03/21/16 09:54 Dose: 15 mg - Objective Vital Signs: Vital Signs Temperature 97.8 F 03/21/16 06:00 Pulse Rate 111 H 03/21/16 06:00 Respiratory Rate 20 03/21/16 06:00 Blood Pressure 120/61 03/21/16 06:00 O2 Sat by Pulse Oximetry (%) 95 03/20/16 21:00 Constitutional: Yes: Well Nourished, No Distress, Calm Eyes: Yes: WNL, Conjunctiva Clear, EOM Intact, PERRL HENT: Yes: WNL, Atraumatic, Normocephalic Neck: Yes: WNL, Supple, Trachea Midline Cardiovascular: Yes: Pulse Irregular, S1, S2. No: Bradycardia, Tachycardia, Bruit, JVD, Gallop, Murmur, Rub, S3, S4, Varicosities Respiratory: Yes: Regular, Rales, Rhonchi. No: SOB, Wheezes Gastrointestinal: Yes: WNL, Normal Bowel Sounds, Soft. No: Distention, Tenderness Musculoskeletal: Yes: Other (LLE pain) Edema: No Peripheral Pulses WNL: Yes Peripheral Pulses: Left Doralis Pedis: 2+, Right Dorsalis Pedis: 2+ Integumentary: Yes: Incision Neurological: Yes: Alert, Oriented, Cran Nerves II-XII Intact Psychiatric: Yes: Alert, Oriented Labs: CBC, BMP 03/21/16 05:40 03/21/16 05:40 INR, PTT INR 2.17 (0.82-1.09) H D 03/17/16 09:40 - ....Imaging Chest X-ray: Report Reviewed, Image Reviewed EKG: Report Reviewed, Image Reviewed Other: Report Reviewed, Image Reviewed (tele-Afib, HR currently adequately controlled, intermittent RVR, PVCs, Couplets) Assessment/Plan Atrial fibrillation-with episodes of RVR -previously on amiodarone but stopped due to elevated LFTs -cont lopressor 25mg po tid as long as BP tolerates, if BP does not tolerate can reduce dose to 12.5mg bid -will give trial of digoxin for further rate control -can also hold Lisinopril for hypotension to allow rate control agents -cont Xarelto -cont tele monitoring CHF-acute on chronic diastolic CHF likely exacerbated by Afib with RVR -HR control -rales on lung exam today, not sob -monitor I/os and daily weights -may need to give low dose diuretic -replete electrolytes -cont metoprolol and lisinopril if bp tolerates
[2016-03-21] MEDS: LISINOPRIL 5 MG TABLET (FP) PO SCH (11:56)
--- NOTE | 2016-03-21 12:27 | PN ---
Progress Note, Physician History of Present Illness: PULMONARY ALERT,FEELING BETTER,SOB IMPROVING - Current Medication List Current Medications: Active Medications Bacitracin (Bacitracin -) 1 applic TP DAILY [facility] Last Admin: 03/21/16 09:53 Dose: 1 applic Digoxin (Lanoxin -) 0.25 mg PO Q6H [facility] Stop: 03/21/16 18:01 Digoxin (Lanoxin -) 0.125 mg PO DAILY [facility] Ceftriaxone Sodium (Rocephin 1gm Ivpb (Pre-Docked)) 50 mls @ 100 mls/hr IVPB DAILY [facility] Last Admin: 03/21/16 09:54 Dose: 100 mls/hr Levothyroxine Sodium (Synthroid -) 50 mcg PO AM [facility] Last Admin: 03/21/16 06:06 Dose: 50 mcg Lisinopril (Prinivil) 2.5 mg PO DAILY [facility] Last Admin: 03/21/16 11:56 Dose: Not Given Metoprolol Tartrate (Lopressor -) 25 mg PO TID [facility] Last Admin: 03/21/16 06:06 Dose: 25 mg Metoprolol Tartrate (Lopressor Injection -) 5 mg IVPUSH Q4H PRN PRN Reason: TACHYCARDIA Oxycodone HCl (Roxicodone -) 5 mg PO Q4H PRN PRN Reason: PAIN Last Admin: 03/21/16 06:05 Dose: 5 mg Polyethylene Glycol (Miralax (For Daily Use) -) 17 gm PO DAILY [facility] Last Admin: 03/21/16 10:00 Dose: 17 gm Rivaroxaban (Xarelto -) 15 mg PO DAILY [facility] Last Admin: 03/21/16 09:54 Dose: 15 mg - Objective Vital Signs: Vital Signs Temperature 97.8 F 03/21/16 06:00 Pulse Rate 111 H 03/21/16 06:00 Respiratory Rate 20 03/21/16 06:00 Blood Pressure 120/61 03/21/16 06:00 O2 Sat by Pulse Oximetry (%) 95 03/20/16 21:00 Constitutional: Yes: Calm, Thin Eyes: Yes: WNL HENT: Yes: WNL Neck: Yes: WNL Cardiovascular: Yes: Pulse Irregular, S1, S2 Respiratory: Yes: Rales (BILATERAL CRACKLES L>R) Gastrointestinal: Yes: Normal Bowel Sounds, Soft Extremities: Yes: WNL Edema: No Labs: CBC, BMP 03/21/16 05:40 03/21/16 05:40 INR, PTT INR 2.17 (0.82-1.09) H D 03/17/16 09:40 - ....Imaging Chest X-ray: Report Reviewed, Image Reviewed Assessment/Plan Assessment/Plan s/p Fall with left tibia/fibula fracture volume overload/chf GGO bilateral/pleural effusions CAD Atrial Fibrillation Pulmonary HTN HTN Elevated LFTs - anticoagulation/diuretics as required - mod-severe pulmonary HTN - empiric ceftriaxone as per ID - O2 as needed - continue anticoagulation DR SHORE
[2016-03-21] MEDS: DIGOXIN 0.25 MG TABLET (FP) PO SCH ×2 (13:54→18:21)
--- NOTE | 2016-03-21 16:01 | PN ---
Physical Exam: SUBJECTIVE: Patient seen and examined. She was sitting up eating breakfast. In good spirits. Denies chest pain, denies shortness of breath. Please wean off oxygen. OBJECTIVE Vital Signs Period Temp Pulse Resp BP Sys/Gandara Pulse Ox Last 24 Hr 97.8 F-98.3 F 104-127 18-20 93-125/61-85 95 GENERAL: Awake, alert, and fully oriented, in no acute distress. HEAD: Normal with no signs of trauma. EYES: Pupils equal, round and reactive to light, extraocular movements intact, sclera anicteric, conjunctiva clear. No lid lag. EARS, NOSE, THROAT: Ears normal, nares patent, oropharynx clear without exudates. Moist mucous membranes. LUNGS: Scattered crackles bilaterally. ABDOMEN: Soft, nontender, not distended, normoactive bowel sounds MUSCULOSKELETAL: fracture of the left proximal tibia and fibula - on an immobilizer UPPER EXTREMITIES: 2+ pulses, warm, well-perfused. No cyanosis. No clubbing. Cap refill <2 seconds. No peripheral edema. Laboratory Results - last 24 hr 03/21/16 03/21/16 05:40 05:40 WBC 9.1 RBC 3.46 L Hgb 11.3 Hct 33.8 MCV 97.7 H MCHC 33.4 RDW 13.5 Plt Count 289 MPV 8.5 Neutrophils % 80.6 Lymphocytes % 7.4 L Monocytes % 9.0 Eosinophils % 2.7 Basophils % 0.3 Sodium 144 Potassium 3.8 Chloride 107 Carbon Dioxide 29 Anion Gap 8 BUN 27 H Creatinine 0.7 Creat Clearance w eGFR > 60 Random Glucose 96 Calcium 7.9 L Magnesium 2.2 Total Bilirubin 1.3 H D AST 18 ALT 46 D Alkaline Phosphatase 109 Total Protein 5.1 L Albumin 2.2 L Active Medications Generic Name Dose Route Start Last Admin Trade Name Freq PRN Reason Stop Dose Admin Bacitracin 1 applic 03/16/16 15:00 03/21/16 09:53 Bacitracin - TP 1 applic DAILY SIMON Administration Digoxin 0.25 mg 03/21/16 12:00 03/21/16 13:54 Lanoxin - PO 03/21/16 18:01 0.25 mg Q6H SIMON Administration Digoxin 0.125 mg 03/22/16 10:00 Lanoxin - PO DAILY SIMON Ceftriaxone Sodium 50 mls @ 100 mls/hr 03/17/16 12:15 03/21/16 09:54 Rocephin 1gm Ivpb (Pre-Docked) IVPB 100 mls/hr DAILY [facility]ON Administration Levothyroxine Sodium 50 mcg 03/14/16 07:00 03/21/16 06:06 Synthroid - PO 50 mcg AM SIMON Administration Lisinopril 2.5 mg 03/21/16 10:00 03/21/16 11:56 Prinivil PO Not Given DAILY [facility]ON Metoprolol Tartrate 5 mg 03/19/16 10:43 Lopressor Injection - IVPUSH Q4H PRN TACHYCARDIA Metoprolol Tartrate 12.5 mg 03/21/16 22:00 Lopressor - PO BID SIMON Oxycodone HCl 5 mg 03/13/16 07:46 03/21/16 06:05 Roxicodone - PO 5 mg Q4H PRN Administration PAIN Polyethylene Glycol 17 gm 03/15/16 17:00 03/21/16 10:00 Miralax (For Daily Use) - PO 17 gm DAILY SIMON Administration Rivaroxaban 15 mg 03/13/16 10:00 03/21/16 09:54 Xarelto - PO 15 mg DAILY SIMON Administration ASSESSMENT/PLAN: The patient is a 85 year old female, with a significant past medical history of hypertension, RA, CAD (w stents) and atrial fibrillation who presents to the emergency department on 03/13/2016 with left knee pain and left thigh s/p fall. The patient denies hitting her head or feeling lightheaded. She denies chest pain, headache and dizziness. She denies fever, chills, nausea, vomit or any other discomfort. She was scheduled to be discharged to rehab on 03/17/2016 but her hospitalization was complicated when patient developed a bilateral pneumonia requiring IV antibiotics and supplemental oxygen. She also developed elevated LFTs, and episodes of atrial afibrillation with RVR. ID: Leukocytosis - resolved - WBC now 9.1 Assessment/Plan: Leukocytosis resolved, remains afebrile. ID and Pulmonary consulted: On empiric Ceftriaxone 1gm (day #5) Blood cultures with no growth today, urine cultures repeated and now pending ID following GI: Elevated LFTs - acute Assessment/Plan: AST/ALT trending down Abdominal exam negative Zantac stopped as it may cause hepatotoxicity, Amiodorone stopped by Cardiology Trend liver enzymes Orthopedics: Fracture of the proximal tibia and fibula - acute Assessment/Plan: On LLE immobilizer, good pedal pulses, not a surgical candidate. Plan is to send her out to outpatient PT once medically stable Physical therapy following Cardiology: Hypertension - chronic Hypotension - acute Assessment/Plan: Decreased Lisinopril to 2.5 mg daily (with BP parameters). Lopressor decreased to 12.5mg BID secondary to episodes of hypotension. Started on Digoxin by cardiology. Troponins elevated 0.11, 0.10, 0.07 Cardiology following Pulmonary: Shortness of breath - acute/improving/able to tolerate room air-oxygen prn Assessment/Plan: Please wean off oxygen in anticipation of discharge. Chest xray 03/21/2016: weak inspiration, left infiltrate, some congestive changes Incentive Spirometer hourly - taught how to use. : Acute Kidney Injury: resolving Assessment/Plan: Continue to trend Hematology: Thrombocytopenia - resolved Assessment/Plan: Monitor CBC F.E.N. Tolerating PO fluids Hyponatremia resolved, Mag 2.1 Hypocalcemia: corrected Calcium is 9.7 Regular diet Prophylaxis: GI: colace prn DVT: Xarelto 15mg daily, SCD on right leg Physical therapy Disposition: Rehab once medically cleared. Anticipate discharge tomorrow. Full code Visit type - Emergency Visit Emergency Visit: Yes ED Registration Date: 03/13/16 Care time: The patient presented to the Emergency Department on the above date and was hospitalized for further evaluation of their emergent condition. - New Patient This patient is new to me today: No - Critical Care Critical Care patient: No - Discharge Referral Referred to [facility].: No
[2016-03-21] MEDS ORDERED: ALBUTEROL SO4 2.5/IPRATROPIUM 0.5 INH SOL 3 ML VIAL.NEB. NEB ONE (19:09)
[2016-03-22] MEDS: LEVOTHYROXINE NA 50 MCG TABLET (FP) PO SCH (06:03)
[2016-03-22 07:53] LABS: MCH 32.7 pg (25.7-33.7); MEAN PLT VOLUME 8.4 fl (7.5-11.1); PLATELET COUNT 332 K/MM3 (134-434); RDW 13.7 % (11.6-15.6); WHITE BLOOD COUNT 10.1 K/mm3 (4.0-10.0)
[2016-03-22 08:40] LABS: ALBUMIN 2.3 g/dl (3.4-5.0); CALCIUM 7.9 mg/dL (8.5-10.1)
[2016-03-22 08:45] LABS: ALK PHOS 110 U/L (45-117); ANION GAP 5 (8-16); CO2 29 mmol/L (21-32); CREATININE 0.7 mg/dL (0.55-1.02); GLUCOSE,RANDOM 84 mg/dL (74-106); MAGNESIUM 2.4 mg/dL (1.8-2.4); SGOT/AST 20 U/L (15-37); SGPT/ALT 38 U/L (12-78); TOT PROT 5.3 g/dl (6.4-8.2)
[2016-03-22] MEDS ORDERED: DIGOXIN 0.125 MG TABLET (FP) PO SCH (10:00)
[2016-03-22] MEDS: BACITRACIN 30 GM TUBE TOPICAL OINTMENT TP SCH (10:11)
[2016-03-22] MEDS: POLYETHYLENE GLYCOL 3350 119 GM BTL PO SCH (10:12)
[2016-03-22] MEDS: METOPROLOL TARTRATE 25 MG TABLET (FP) PO SCH (10:12)
[2016-03-22] MEDS: RIVAROXABAN 15 MG TABLET PO SCH (10:12)
[2016-03-22] MEDS: CEFTRIAXONE 50 ML IVPB SCH (10:12)
[2016-03-22] MEDS: oxyCODONE HCL 5 MG TABLET PO PRN (10:12)
[2016-03-22] MEDS: LISINOPRIL 5 MG TABLET (FP) PO SCH (10:12)
--- NOTE | 2016-03-22 11:41 | PN ---
[id number] pain (s/p fracture) and bitter taste in mouth (the latter was occurring since before hospitalization; she blames it on "acid in my stomach"). History of Present Illness: The patient is an 85 year old female (. [place]), with a significant past medical history of HTN, paroxysmal atrial fibrillation, RA, CAD (stent placed), who presents to the emergency department with L knee pain and L thigh s/p fall ( denies syncope). The patients daughter is at bedside and reports she misstepped while climbing down the stairs. The patient denies any further complaints or any injury. She denies chest pain, headache and dizziness. She denies fever, chills, nausea, vomit, diarrhea and constipation. She denies dysuria, frequency, urgency and hematuria. - Current Medication List Current Medications: Active Medications Bacitracin (Bacitracin -) 1 applic TP DAILY [facility] Last Admin: 03/22/16 10:11 Dose: 1 applic Digoxin (Lanoxin -) 0.125 mg PO DAILY [facility] Last Admin: 03/22/16 10:11 Dose: 0.125 mg Ceftriaxone Sodium (Rocephin 1gm Ivpb (Pre-Docked)) 50 mls @ 100 mls/hr IVPB DAILY [facility] Last Admin: 03/22/16 10:12 Dose: 100 mls/hr Levothyroxine Sodium (Synthroid -) 50 mcg PO AM [facility] Last Admin: 03/22/16 06:03 Dose: 50 mcg Lisinopril (Prinivil) 2.5 mg PO DAILY [facility] Last Admin: 03/22/16 10:12 Dose: 2.5 mg Metoprolol Tartrate (Lopressor Injection -) 5 mg IVPUSH Q4H PRN PRN Reason: TACHYCARDIA Metoprolol Tartrate (Lopressor -) 12.5 mg PO BID [facility] Last Admin: 03/22/16 10:12 Dose: 12.5 mg Oxycodone HCl (Roxicodone -) 5 mg PO Q4H PRN PRN Reason: PAIN Last Admin: 03/22/16 10:12 Dose: 5 mg Polyethylene Glycol (Miralax (For Daily Use) -) 17 gm PO DAILY [facility] Last Admin: 03/22/16 10:12 Dose: 17 gm Rivaroxaban (Xarelto -) 15 mg PO DAILY [facility] Last Admin: 03/22/16 10:12 Dose: 15 mg - Objective Vital Signs: Vital Signs Temperature 97.2 F L 03/22/16 05:00 Pulse Rate 101 H 03/22/16 10:11 Respiratory Rate 18 03/22/16 05:00 Blood Pressure 126/93 03/22/16 05:00 O2 Sat by Pulse Oximetry (%) 94 L 03/21/16 21:00 Constitutional: Yes: Calm Eyes: Yes: WNL HENT: Yes: WNL Neck: Yes: WNL Cardiovascular: Yes: Regular Rate and Rhythm Respiratory: Yes: WNL Gastrointestinal: Yes: Soft ...Rectal Exam: Yes: Deferred Genitourinary: No: Anuria Breast(s): Yes: WNL Musculoskeletal: Yes: Joint Stiffness Extremities: Yes: WNL Edema: No Peripheral Pulses WNL: Yes Integumentary: Yes: Bruising Neurological: Yes: WNL Psychiatric: Yes: WNL Labs: CBC, BMP 03/22/16 06:50 03/22/16 06:50 INR, PTT INR 2.17 (0.82-1.09) H D 03/17/16 09:40 Problem List - Problems (1) Fall Code(s): W19.XXXA - UNSPECIFIED FALL, INITIAL ENCOUNTER (2) Fracture of proximal end of fibula Assessment/Plan: healing without surgery. Pain management; physical rehabilitation. Code(s): S82.839A - OTH FRACTURE OF UPPER AND LOWER END OF UNSP FIBULA, INIT (3) Afib Assessment/Plan: On metoprolol tartrate bid for HR control (VR presently 90-199 bpm). Stopped amiodarone (elevated LFTs); f/u whether this medication is necessary going forward. TSH 1.13. On Xarelto 15 mg daily. Code(s): I48.91 - UNSPECIFIED ATRIAL FIBRILLATION (4) CHF (congestive heart failure) Assessment/Plan: ECHO: normal LVEF and RVEF; abnormal diastolic compliance; moderate biatrial enlargement; severe TR. Elevated BNP; elevated JVP. Less short of breath; able to speak in complete sentences without distress. On metoprolol, lisinopril; off furosemide. F/u electrolytes (replete K+, which is 2.9 today), Is and Os, BUN/Cr, daily weights. F/u magnesium. D/c amiodarone for the present (LFTs have doubled in past 24 hours, possibly from CHF, and are now decreasing). F/u workup. Treat pneumonia. TSH WNL (on Synthroid). Code(s): I50.9 - HEART FAILURE, UNSPECIFIED (5) Pneumonia Code(s): J18.9 - PNEUMONIA, UNSPECIFIED ORGANISM (6) Elevated troponin I level Assessment/Plan: A number of factors may be driving this mild increase, including demand myocardial ischemia , CHF, skeletal muscle damage (s/p femur fracture). Code(s): R79.89 - OTHER SPECIFIED ABNORMAL FINDINGS OF BLOOD CHEMISTRY (8) Elevated LFTs Code(s): R79.89 - OTHER SPECIFIED ABNORMAL FINDINGS OF BLOOD CHEMISTRY
--- NOTE | 2016-03-22 13:32 | PN ---
Progress Note (short form) - Note Progress Note: PULMONARY States breathing is improving. No cough or wheezing. No fevers or chills. Last Vital Signs Temp Pulse Resp BP Pulse Ox 97.2 F L 101 H 18 126/93 94 L 03/22/16 05:00 03/22/16 10:11 03/22/16 05:00 03/22/16 05:00 03/21/16 21:00 Gen: NAD in chair Heart: irregular Lung: decreased breath sounds at the bases Abd: soft, nontender Ext: no edema, left leg immobilized CBC, BMP 03/22/16 06:50 03/22/16 06:50 INR, PTT INR 2.17 (0.82-1.09) H D 03/17/16 09:40 Active Medications Bacitracin (Bacitracin -) 1 applic TP DAILY [facility] Last Admin: 03/22/16 10:11 Dose: 1 applic Digoxin (Lanoxin -) 0.125 mg PO DAILY [facility] Last Admin: 03/22/16 10:11 Dose: 0.125 mg Levothyroxine Sodium (Synthroid -) 50 mcg PO AM [facility] Last Admin: 03/22/16 06:03 Dose: 50 mcg Lisinopril (Prinivil) 2.5 mg PO DAILY [facility] Last Admin: 03/22/16 10:12 Dose: 2.5 mg Metoprolol Tartrate (Lopressor Injection -) 5 mg IVPUSH Q4H PRN PRN Reason: TACHYCARDIA Metoprolol Tartrate (Lopressor -) 12.5 mg PO BID [facility] Last Admin: 03/22/16 10:12 Dose: 12.5 mg Oxycodone HCl (Roxicodone -) 5 mg PO Q4H PRN PRN Reason: PAIN Last Admin: 03/22/16 10:12 Dose: 5 mg Polyethylene Glycol (Miralax (For Daily Use) -) 17 gm PO DAILY [facility] Last Admin: 03/22/16 10:12 Dose: 17 gm Rivaroxaban (Xarelto -) 15 mg PO DAILY [facility] Last Admin: 03/22/16 10:12 Dose: 15 mg A/P s/p Fall with left tibia/fibula fracture Acute on Chronic LV Diastolic Heart Failure GGO bilateral/pleural effusions CAD Atrial Fibrillation Pulmonary HTN HTN Elevated LFTs - lasix as needed - rate control with metoprolol, digoxin - continue anticoagulation - empiric ceftriaxone as per ID - O2 as needed - will need outpt f/u of imaging to ensure resolution Problem List - Problems (1) Fall Code(s): W19.XXXA - UNSPECIFIED FALL, INITIAL ENCOUNTER (2) Fracture of proximal end of fibula Code(s): S82.839A - OTH FRACTURE OF UPPER AND LOWER END OF UNSP FIBULA, INIT (3) Tibial plateau fracture, left Code(s): S82.142A - DISPLACED BICONDYLAR FRACTURE OF LEFT TIBIA, INIT Qualifiers: Qualified Code(s): S82.142A - Displaced bicondylar fracture of left tibia, initial encounter for closed fracture (4) Afib Code(s): I48.91 - UNSPECIFIED ATRIAL FIBRILLATION (5) UTI (urinary tract infection) Code(s): N39.0 - URINARY TRACT INFECTION, SITE NOT SPECIFIED (6) Lung mass Code(s): R91.8 - OTHER NONSPECIFIC ABNORMAL FINDING OF LUNG FIELD
[2016-03-22 14:43] VITALS: TEMP 98.3
--- NOTE | 2016-03-22 14:57 | PN ---
Progress Note, Physician History of Present Illness: doing well no issues - Current Medication List Current Medications: Active Medications Bacitracin (Bacitracin -) 1 applic TP DAILY [facility] Last Admin: 03/22/16 10:11 Dose: 1 applic Digoxin (Lanoxin -) 0.125 mg PO DAILY [facility] Last Admin: 03/22/16 10:11 Dose: 0.125 mg Levothyroxine Sodium (Synthroid -) 50 mcg PO AM [facility] Last Admin: 03/22/16 06:03 Dose: 50 mcg Lisinopril (Prinivil) 2.5 mg PO DAILY [facility] Last Admin: 03/22/16 10:12 Dose: 2.5 mg Metoprolol Tartrate (Lopressor Injection -) 5 mg IVPUSH Q4H PRN PRN Reason: TACHYCARDIA Metoprolol Tartrate (Lopressor -) 12.5 mg PO BID [facility] Last Admin: 03/22/16 10:12 Dose: 12.5 mg Oxycodone HCl (Roxicodone -) 5 mg PO Q4H PRN PRN Reason: PAIN Last Admin: 03/22/16 10:12 Dose: 5 mg Polyethylene Glycol (Miralax (For Daily Use) -) 17 gm PO DAILY [facility] Last Admin: 03/22/16 10:12 Dose: 17 gm Rivaroxaban (Xarelto -) 15 mg PO DAILY [facility] Last Admin: 03/22/16 10:12 Dose: 15 mg - Objective Vital Signs: Vital Signs Temperature 98.3 F 03/22/16 14:42 Pulse Rate 91 H 03/22/16 14:42 Respiratory Rate 18 03/22/16 14:42 Blood Pressure 119/77 03/22/16 14:42 O2 Sat by Pulse Oximetry (%) 94 L 03/21/16 21:00 Constitutional: Yes: No Distress, Calm Cardiovascular: Yes: Regular Rate and Rhythm Respiratory: Yes: Regular Gastrointestinal: Yes: Normal Bowel Sounds, Soft Musculoskeletal: Yes: WNL Extremities: Yes: WNL Neurological: Yes: Alert, Oriented Psychiatric: Yes: Alert Labs: CBC, BMP 03/22/16 06:50 03/22/16 06:50 INR, PTT INR 2.17 (0.82-1.09) H D 03/17/16 09:40 Assessment/Plan evaluated.images seen patient to get a ct scan of the chest currently on ceftriaxone Problem List - Problems (1) Fall Code(s): W19.XXXA - UNSPECIFIED FALL, INITIAL ENCOUNTER (2) Fracture of proximal end of fibula Code(s): S82.839A - OTH FRACTURE OF UPPER AND LOWER END OF UNSP FIBULA, INIT Qualifiers: Encounter type: initial encounter Fracture type: closed (3) Tibial plateau fracture, left Code(s): S82.142A - DISPLACED BICONDYLAR FRACTURE OF LEFT TIBIA, INIT Qualifiers: Encounter type: initial encounter Fracture type: closed Qualified Code(s): S82.142A - Displaced bicondylar fracture of left tibia, initial encounter for closed fracture (4) Afib Code(s): I48.91 - UNSPECIFIED ATRIAL FIBRILLATION (5) UTI (urinary tract infection) Code(s): N39.0 - URINARY TRACT INFECTION, SITE NOT SPECIFIED (6) Lung mass Code(s): R91.8 - OTHER NONSPECIFIC ABNORMAL FINDING OF LUNG FIELD plan continue ceftriaxone monitor wbc await for cx reports rest as per medicine team
--- NOTE | 2016-03-22 14:58 | PN ---
Progress Note, Physician History of Present Illness: no issues of breathing doing well leg is hurting - Current Medication List Current Medications: Active Medications Bacitracin (Bacitracin -) 1 applic TP DAILY [facility] Last Admin: 03/22/16 10:11 Dose: 1 applic Digoxin (Lanoxin -) 0.125 mg PO DAILY [facility] Last Admin: 03/22/16 10:11 Dose: 0.125 mg Levothyroxine Sodium (Synthroid -) 50 mcg PO AM [facility] Last Admin: 03/22/16 06:03 Dose: 50 mcg Lisinopril (Prinivil) 2.5 mg PO DAILY [facility] Last Admin: 03/22/16 10:12 Dose: 2.5 mg Metoprolol Tartrate (Lopressor Injection -) 5 mg IVPUSH Q4H PRN PRN Reason: TACHYCARDIA Metoprolol Tartrate (Lopressor -) 12.5 mg PO BID [facility] Last Admin: 03/22/16 10:12 Dose: 12.5 mg Oxycodone HCl (Roxicodone -) 5 mg PO Q4H PRN PRN Reason: PAIN Last Admin: 03/22/16 10:12 Dose: 5 mg Polyethylene Glycol (Miralax (For Daily Use) -) 17 gm PO DAILY [facility] Last Admin: 03/22/16 10:12 Dose: 17 gm Rivaroxaban (Xarelto -) 15 mg PO DAILY [facility] Last Admin: 03/22/16 10:12 Dose: 15 mg - Objective Vital Signs: Vital Signs Temperature 98.3 F 03/22/16 14:42 Pulse Rate 91 H 03/22/16 14:42 Respiratory Rate 18 03/22/16 14:42 Blood Pressure 119/77 03/22/16 14:42 O2 Sat by Pulse Oximetry (%) 94 L 03/21/16 21:00 Constitutional: Yes: No Distress, Calm Cardiovascular: Yes: Regular Rate and Rhythm Respiratory: Yes: Regular, CTA Bilaterally Gastrointestinal: Yes: Normal Bowel Sounds, Soft Musculoskeletal: Yes: Other Extremities: Yes: Other Neurological: Yes: Alert, Oriented Psychiatric: Yes: Alert Labs: CBC, BMP 03/22/16 06:50 03/22/16 06:50 INR, PTT INR 2.17 (0.82-1.09) H D 03/17/16 09:40 Assessment/Plan evaluated.images seen patient to get a ct scan of the chest currently on ceftriaxone Problem List - Problems (1) Fall Code(s): W19.XXXA - UNSPECIFIED FALL, INITIAL ENCOUNTER (2) Fracture of proximal end of fibula Code(s): S82.839A - OTH FRACTURE OF UPPER AND LOWER END OF UNSP FIBULA, INIT Qualifiers: Encounter type: initial encounter Fracture type: closed (3) Tibial plateau fracture, left Code(s): S82.142A - DISPLACED BICONDYLAR FRACTURE OF LEFT TIBIA, INIT Qualifiers: Encounter type: initial encounter Fracture type: closed Qualified Code(s): S82.142A - Displaced bicondylar fracture of left tibia, initial encounter for closed fracture (4) Afib Code(s): I48.91 - UNSPECIFIED ATRIAL FIBRILLATION (5) UTI (urinary tract infection) Code(s): N39.0 - URINARY TRACT INFECTION, SITE NOT SPECIFIED (6) Lung mass Code(s): R91.8 - OTHER NONSPECIFIC ABNORMAL FINDING OF LUNG FIELD plan can stop all abx rest ct current mgmt
--- NOTE | 2016-03-22 15:19 | PN ---
Physical Exam: SUBJECTIVE: Patient seen and examined. States she feels well. She denies shortness of breath but its clear that she continues to require oxygen PRN. She destats in mid to high 80s without oxygen. She will benefit from Pulmonary Rehab. OBJECTIVE: GENERAL: Awake, alert, and fully oriented, in no acute distress. Israeli speaking. HEAD: Normal with no signs of trauma. EYES: Pupils equal, round and reactive to light, extraocular movements intact, sclera anicteric, conjunctiva clear. No lid lag. EARS, NOSE, THROAT: Ears normal, nares patent, oropharynx clear without exudates. Moist mucous membranes. LUNGS: Scattered crackles bilaterally. ABDOMEN: Soft, nontender, not distended, normoactive bowel sounds MUSCULOSKELETAL: fracture of the left proximal tibia and fibula - on LLE immobilizer UPPER EXTREMITIES: 2+ pulses, warm, well-perfused. No cyanosis. No clubbing. Cap refill <2 seconds. No peripheral edema. Vital Signs Period Temp Pulse Resp BP Sys/Gandara Pulse Ox Last 24 Hr 97.2 F-98.8 F 86-110 18-18 119-154/73-93 94-95 Laboratory Results - last 24 hr 03/22/16 03/22/16 06:50 06:50 WBC 10.1 H RBC 3.72 Hgb 12.2 Hct 36.8 MCV 99.0 H MCHC 33.0 RDW 13.7 Plt Count 332 MPV 8.4 Neutrophils % 78.0 Lymphocytes % 5.0 L D Monocytes % 7.0 Eosinophils % 7.0 H D Basophils % 1.0 D Myelocytes 1 Differential Comment Manual diff done Reactive Lymphocytes 1 Sodium 141 Potassium 4.2 Chloride 107 Carbon Dioxide 29 Anion Gap 5 L BUN 23 H Creatinine 0.7 Creat Clearance w eGFR > 60 Random Glucose 84 Calcium 7.9 L Magnesium 2.4 Total Bilirubin 1.0 D AST 20 ALT 38 Alkaline Phosphatase 110 Total Protein 5.3 L Albumin 2.3 L Active Medications Generic Name Dose Route Start Last Admin Trade Name Freq PRN Reason Stop Dose Admin Bacitracin 1 applic 03/16/16 15:00 03/22/16 10:11 Bacitracin - TP 1 applic DAILY SIMON Administration Digoxin 0.125 mg 03/22/16 10:00 03/22/16 10:11 Lanoxin - PO 0.125 mg DAILY SIMON Administration Levothyroxine Sodium 50 mcg 03/14/16 07:00 03/22/16 06:03 Synthroid - PO 50 mcg AM SIMON Administration Lisinopril 2.5 mg 03/21/16 10:00 03/22/16 10:12 Prinivil PO 2.5 mg DAILY [facility] Administration Metoprolol Tartrate 5 mg 03/19/16 10:43 Lopressor Injection - IVPUSH Q4H PRN TACHYCARDIA Metoprolol Tartrate 12.5 mg 03/21/16 22:00 03/22/16 10:12 Lopressor - PO 12.5 mg BID SIMON Administration Oxycodone HCl 5 mg 03/13/16 07:46 03/22/16 10:12 Roxicodone - PO 5 mg Q4H PRN Administration PAIN Polyethylene Glycol 17 gm 03/15/16 17:00 03/22/16 10:12 Miralax (For Daily Use) - PO 17 gm DAILY [facility] Administration Rivaroxaban 15 mg 03/13/16 10:00 03/22/16 10:12 Xarelto - PO 15 mg DAILY [facility] Administration ASSESSMENT/PLAN: The patient is a 85 year old female, with a significant past medical history of hypertension, RA, CAD (w stents) and atrial fibrillation who presents to the emergency department on 03/13/2016 with left knee pain and left thigh s/p fall. The patient denies hitting her head or feeling lightheaded. She denies chest pain, headache and dizziness. She denies fever, chills, nausea, vomit or any other discomfort. She was scheduled to be discharged to rehab on 03/17/2016 but her hospitalization was complicated when patient developed a bilateral pneumonia requiring IV antibiotics and supplemental oxygen. She also developed elevated LFTs, and episodes of atrial afibrillation with RVR. ID: Leukocytosis - resolved - WBC now 10.1 Assessment/Plan: Leukocytosis resolved, remains afebrile. ID and Pulmonary consulted: antibiotics stopped - BC and UC negative ID following GI: Elevated LFTs - resolved Assessment/Plan: AST/ALT normalized Abdominal exam negative Zantac stopped as it may cause hepatotoxicity, Amiodorone stopped by Cardiology Orthopedics: Fracture of the proximal tibia and fibula - acute Assessment/Plan: On LLE immobilizer, good pedal pulses, not a surgical candidate. Plan is to send her out to outpatient PT once medically stable Physical therapy following Cardiology: Hypertension - chronic Hypotension - resolved Assessment/Plan: Decreased Lisinopril to 2.5 mg daily (with BP parameters). Lopressor decreased to 12.5mg BID secondary to episodes of hypotension. Started on Digoxin by cardiology. Troponins elevated 0.11, 0.10, 0.07 Cardiology following Pulmonary: Shortness of breath - acute/improving/able to tolerate room air-oxygen prn - unable to wean off oxygen, will benefit from pulmonary rehab. Assessment/Plan: Chest xray 03/21/2016: weak inspiration, left infiltrate, some congestive changes Incentive Spirometer hourly - taught how to use. : Acute Kidney Injury: resolving Assessment/Plan: Continue to trend Hematology: Thrombocytopenia - resolved Assessment/Plan: Monitor CBC F.E.N. Tolerating PO fluids Hyponatremia resolved Hypocalcemia: corrected Calcium is 9.7 Regular diet Prophylaxis: GI: colace prn DVT: Xarelto 15mg daily, SCD on right leg Physical therapy and Pulm rehab Disposition: Discharge tomorrow. Full code Visit type - Emergency Visit Emergency Visit: Yes ED Registration Date: 03/13/16 Care time: The patient presented to the Emergency Department on the above date and was hospitalized for further evaluation of their emergent condition. - New Patient This patient is new to me today: No - Critical Care Critical Care patient: No - Discharge Referral Referred to [facility] Med P.C.: No
--- NOTE | 2016-03-22 15:28 | DS ---
Physical Exam: SUBJECTIVE: Patient seen and examined. She states she feels well, Denies chest pain. Eager to start rehab. OBJECTIVE: GENERAL: Awake, alert, and fully oriented, in no acute distress. [place]or[place] speaking. HEAD: Normal with no signs of trauma. EYES: Pupils equal, round and reactive to light, extraocular movements intact, sclera anicteric, conjunctiva clear. No lid lag. EARS, NOSE, THROAT: Ears normal, nares patent, oropharynx clear without exudates. Moist mucous membranes. LUNGS: Scattered crackles bilaterally. ABDOMEN: Soft, nontender, not distended, normoactive bowel sounds MUSCULOSKELETAL: fracture of the left proximal tibia and fibula - on LLE immobilizer UPPER EXTREMITIES: 2+ pulses, warm, well-perfused. No cyanosis. No clubbing. Cap refill <2 seconds. No peripheral edema. Vital Signs Period Temp Pulse Resp BP Sys/Gandara Pulse Ox Last 24 Hr 97.2 F-98.8 F 86-110 18-18 119-154/73-93 94-95 LABS Laboratory Results - last 24 hr 03/22/16 03/22/16 06:50 06:50 WBC 10.1 H RBC 3.72 Hgb 12.2 Hct 36.8 MCV 99.0 H MCHC 33.0 RDW 13.7 Plt Count 332 MPV 8.4 Neutrophils % 78.0 Lymphocytes % 5.0 L D Monocytes % 7.0 Eosinophils % 7.0 H D Basophils % 1.0 D Myelocytes 1 Differential Comment Manual diff done Reactive Lymphocytes 1 Sodium 141 Potassium 4.2 Chloride 107 Carbon Dioxide 29 Anion Gap 5 L BUN 23 H Creatinine 0.7 Creat Clearance w eGFR > 60 Random Glucose 84 Calcium 7.9 L Magnesium 2.4 Total Bilirubin 1.0 D AST 20 ALT 38 Alkaline Phosphatase 110 Total Protein 5.3 L Albumin 2.3 L HOSPITAL COURSE: Date of Admission:03/13/16 Date of Discharge: 03/22/16 The patient is a 85 year old female, with a significant past medical history of hypertension, RA, CAD (w stents) and atrial fibrillation who presents to the emergency department on 03/13/2016 with left knee pain and left thigh s/p fall. The patient denies hitting her head or feeling lightheaded. She denies chest pain, headache and dizziness. She denies fever, chills, nausea, vomit or any other discomfort. She was scheduled to be discharged to rehab on 03/17/2016 but her hospitalization was complicated when patient developed a bilateral pneumonia requiring IV antibiotics and supplemental oxygen. She also developed elevated LFTs, and episodes of atrial afibrillation with RVR. ID: Leukocytosis - resolved - WBC now 10.1 Assessment/Plan: Leukocytosis resolved, remains afebrile. ID and Pulmonary consulted: antibiotics stopped - BC and UC negative ID following GI: Elevated LFTs - resolved Assessment/Plan: AST/ALT normalized Abdominal exam negative Zantac stopped as it may cause hepatotoxicity, Amiodorone stopped by Cardiology Orthopedics: Fracture of the proximal tibia and fibula - acute Assessment/Plan: On LLE immobilizer, good pedal pulses, not a surgical candidate. Plan is to send her out to outpatient PT once medically stable Physical therapy following Cardiology: Hypertension - chronic Hypotension - resolved Assessment/Plan: Decreased Lisinopril to 2.5 mg daily (with BP parameters). Lopressor decreased to 12.5mg BID secondary to episodes of hypotension. Started on Digoxin by cardiology. Troponins elevated 0.11, 0.10, 0.07 Cardiology following Pulmonary: Shortness of breath - acute/improving/able to tolerate room air-oxygen prn - unable to wean off oxygen, will benefit from pulmonary rehab. Assessment/Plan: Chest xray 03/21/2016: weak inspiration, left infiltrate, some congestive changes Incentive Spirometer hourly - taught how to use. : Acute Kidney Injury: resolving Assessment/Plan: Continue to trend Hematology: Thrombocytopenia - resolved Assessment/Plan: Monitor CBC F.E.N. Tolerating PO fluids Hyponatremia resolved Hypocalcemia: corrected Calcium is 9.6 Regular diet Prophylaxis: GI: colace prn DVT: Xarelto 15mg daily, SCD on right leg Physical therapy and Pulm rehab Minutes to complete discharge: 45 Discharge Summary Reason For Visit: FRACTURE OF PROXIMAL END OF FIBULA Current Active Problems Elevated LFTs (Acute) Elevated troponin I level (Acute) Fall (Acute) Fracture of proximal end of fibula (Acute) Lung mass (Acute) The administrative codes within the [employer]MO content you are accessing may have as of 12/19/2015. Please contact your IT Dept/Help Desk and request the latest Regulatory release be installed. IT Dept/Help Desk- Please refer to our FAQ page ([email or web address]) or contact [employer] Customer Support at [email or web address] (Acute) Tibial plateau fracture, left (Acute) UTI (urinary tract infection) (Acute) Condition: Guarded - Instructions Diet, Activity, Other Instructions: Please stop the Amiodorone - has been substituted with Digoxin. Please return to the nearest ER if you experience any of the following: Worsening shortness of breath not relived with supplemental oxygen Chest pain Jaw pain Fast/racing heart Referrals: Mateo Parrish MD [Primary Care Provider] - Disposition: TRANSFER ACUTE CARE/OTHER HOSP - Home Medications Comprehensive Discharge Medication List: Ambulatory Orders Amiodarone HCl [Cordarone -] 200 mg PO DAILY 03/13/16 Famotidine [Pepcid] 20 mg PO DAILY 03/13/16 Levothyroxine [Synthroid -] 0.05 mg PO DAILY 03/13/16 Lisinopril [Zestril] 2.5 mg PO DAILY 03/13/16 Metoprolol Succinate [Toprol XL -] 25 mg PO DAILY 03/13/16 Rivaroxaban [Xarelto -] 15 mg PO DAILY 03/13/16 This patient is new to me today: No Emergency Visit: Yes ED Registration Date: 03/13/16 Care time: The patient presented to the Emergency Department on the above date and was hospitalized for further evaluation of their emergent condition. Critical Care patient: No - Discharge Referral Referred to [facility] Med [facility]C.: No
[2016-03-22 19:44] VITALS: BP 141/74; PULSE 83
== END 2016-03-22 20:40 | DRG 562 ==
LOC: JER 01:40 → UNDOADMIN 06:12 → JERBED 06:12 → J6S 06:58 → JERBED 06:58 → J4S 03-18 23:16
PROVIDERS: ADMIT Internal Medicine; ATTEND Nurse Practitioner Family
DX: S82.142A Displaced bicondylar fracture of left tibia, initial encounter for closed fracture (principal); J18.9 Pneumonia, unspecified organism; I50.33 Acute on chronic diastolic (congestive) heart failure; N17.9 Acute kidney failure, unspecified; E87.1 Hypo-osmolality and hyponatremia; N39.0 Urinary tract infection, site not specified; I25.10 Atherosclerotic heart disease of native coronary artery without angina pectoris; M06.80 Other specified rheumatoid arthritis, unspecified site; I48.0 Paroxysmal atrial fibrillation; E78.00 Pure hypercholesterolemia, unspecified; S82.832A Other fracture of upper and lower end of left fibula, initial encounter for closed fracture; I27.2 Other secondary pulmonary hypertension; R91.8 Other nonspecific abnormal finding of lung field; E83.51 Hypocalcemia; D69.6 Thrombocytopenia, unspecified; R78.89 Finding of other specified substances, not normally found in blood; I11.0 Hypertensive heart disease with heart failure; W10.8XXA Fall (on) (from) other stairs and steps, initial encounter; Y92.098 Other place in other non-institutional residence as the place of occurrence of the external cause; Z95.5 Presence of coronary angioplasty implant and graft
CPT/HCPCS: 36415; 71010-TC; 71250-TC; 73523-TC; 73552-TC-LT; 73560-TC-LT; 73590-TC-LT; 80048; 80053; 81003; 81015; 82550; 83735; 83880; 84132; 84443; 84484; 85025; 85027; 85610; 86704; 86706; 86708; 86850; 86900; 86901; 87040; 87086; 87340; 93005; 93010; 93306-TC; 94010; 97001-GP; 97116-GP; 99283-25

== ENCOUNTER 2017-02-10 12:07 | Inpatient (IN) | payer OTHER ==
--- NOTE | 2017-02-10 12:37 | PDOC ---
History of Present Illness - General Chief Complaint: Irregular Heart Beat Stated Complaint: EVALUATION Time Seen by Provider: 02/10/17 12:22 History Source: Patient - History of Present Illness Timing/Duration: other (this am) Associated Symptoms: reports: weakness. denies: chest pain, diaphoresis, nausea /vomiting, shortness of breath, syncope Past History - Past Medical History Allergies/Adverse Reactions: Allergies Allergy/AdvReac Type Severity Reaction Status Date / Time No Known Allergies Allergy Verified 07/04/13 16:19 Home Medications: Ambulatory Orders Levothyroxine [Synthroid -] 0.05 mg PO DAILY 03/13/16 Lisinopril [Zestril] 2.5 mg PO DAILY 03/13/16 Rivaroxaban [Xarelto -] 15 mg PO DAILY 03/13/16 Digoxin [Lanoxin -] 0.125 mg PO DAILY tablet 03/22/16 Digoxin [Lanoxin -] 0.25 mg PO Q6H tablet 03/22/16 Metoprolol Tartrate [Lopressor -] 12.5 mg PO BID #0 tablet 03/22/16 Oxycodone HCl [Roxicodone -] 5 mg PO Q4H PRN #0 tablet MDD 6 tabs 03/22/16 Polyethylene Glycol 3350 [Miralax 119 gm Btl -] 17 gm PO DAILY bottle 03/22/16 Cardiac Disorders: Yes (Atrial Fibrillation) HTN: Yes Hypercholesterolemia: Yes - Surgical History Cardiac Surgery: Yes (2009) - Immunization History Immunization Up to Date: Yes - Suicide/Smoking/Psychosocial Hx Smoking History: Never smoked Have you smoked in the past 12 months: No Number of Cigarettes Smoked Daily: 0 Cigars Per Day: 0 Hx Alcohol Use: No Drug/Substance Use Hx: No Substance Use Type: None Hx Substance Use Treatment: No Review of Systems - Review of Systems Constitutional: Yes: Weakness. No: Fever Respiratory: No: Cough, Shortness of Breath Cardiac (ROS): Yes: Lightheadedness. No: Chest Pain, Palpitations, Syncope ABD/GI: No: Nausea, Vomiting *Physical Exam - Physical Exam General Appearance: Yes: Appropriately Dressed. No: Apparent Distress HEENT: positive: Normal Voice Neck: positive: Supple Respiratory/Chest: positive: Lungs Clear, Normal Breath Sounds. negative: Respiratory Distress Cardiovascular: positive: S1, S2, Irregularly Irregular Gastrointestinal/Abdominal: positive: Soft. negative: Tender Extremity: positive: Normal Inspection. negative: Pedal Edema Integumentary: positive: Dry, Warm Neurologic: positive: Fully Oriented, Alert, Normal Mood/Affect ED Treatment Course - LABORATORY CBC & Chemistry Diagram: 02/10/17 13:00 02/10/17 13:00 - RADIOLOGY Radiology Studies Ordered: Category Date Time Status CHEST X-RAY PORTABLE* [RAD] Stat Radiology 02/10/17 12:26 Ordered Medical Decision Making - Medical Decision Making 02/10/17 12:31 86-year-old female, history of Afib on xarelto, HLD, CHF, UTIs, sent to ED by PMD for tachycardia. Was found to have heart rate in the 140s in office this am. Patient complain of dizziness and fatigue this a.m. that has since resolved. No chest pain or shortness of breath See exam Rapid afib in ED Pt c/o dizziness/fatigue this am States she is compliant w/ her meds -rate control -already on AC (xarelto) -cards c/s -arrange admission w/ PMD 02/10/17 12:44 02/10/17 12:47 02/10/17 12:54 HR now 90s on monitor s/p 1 dose of cardizem. Will give po dose. Labs and admission pending 02/10/17 13:04 02/10/17 13:13 Case d/w Dr Caro, states ekg was afib in the 150s in his office this am. Wants pt admitted to hospitalist. States pt's cards is Dr Sherman 02/10/17 13:16 Case d/w Dr Pereira who agrees w/ above plan 02/10/17 13:33 Signed out to resident pending labs prior to admission *DC/Admit/Observation/Transfer Diagnosis at time of Disposition: Dizziness Afib Qualifiers: Atrial fibrillation type: unspecified Qualified Code(s): I48.91 - Unspecified atrial fibrillation - Discharge Dispostion Condition at time of disposition: Fair Admit: Yes - Referrals - Patient Instructions - Post Discharge Activity
[2017-02-10] MEDS ORDERED: dilTIAZem HCL 50 MG/10 ML - 10 ML VIAL IVPUSH ONE ×2 (12:44→16:08)
[2017-02-10] MEDS ORDERED: dilTIAZem HCL 125 MG/25 ML - 25 ML VIAL ONE (12:47)
[2017-02-10] MEDS ORDERED: dilTIAZem HCL 30 MG TABLET (FP) PO ONE ×2 (13:00→15:07)
[2017-02-10] MEDS ORDERED: dilTIAZem HCL 30 MG TABLET (FP) ONE ×2 (13:07→15:13)
[2017-02-10 13:10] LABS: BASOPHIL 0.5 % (0-2.0); EOSINOPHIL 0.1 % (0-4.5); MCH 30.1 pg (25.7-33.7); MCHC 32.1 g/dl (32.0-36.0); MEAN CELL VOLUME 93.7 fl (80-96); MEAN PLT VOLUME 9.1 fl (7.5-11.1); PLATELET COUNT 206 K/MM3 (134-434); WHITE BLOOD COUNT 7.7 K/mm3 (4.0-10.0)
[2017-02-10 13:24] VITALS: BMI 19.8
[2017-02-10 13:24] LABS: INR 1.63 (0.82-1.09); PROTHROMBIN TIME (PATIENT) 18.4 SEC (9.98-11.88)
--- NOTE | 2017-02-10 13:29 | PN ---
Progress Note (short form) - Note Progress Note: Cardiology Consult for Boo dictated IMP: PAF, now with AF w/ RVR likely cause of dizziness, fatigue HTN PHTN Rheumatoid Arthritis REC: 1. Telemetry 2. Repeat Echo 3. Check labs, currently pending 4. Start Cardizem 30mg PO q6h, responded nicely in ER to IV Cardizem. If EF confirmed normal on today's echo can then convert to Cardizem CD in 24 hours. 5. Continue home AC, pending labs.
[2017-02-10 13:37] LABS: ALBUMIN 3.6 g/dl (3.4-5.0); ANION GAP 10 (8-16); BILIRUBIN,TOTAL 0.7 mg/dL (0.2-1.0); CALCIUM 8.9 mg/dL (8.5-10.1); CO2 24 mmol/L (21-32); CREATININE 0.8 mg/dL (0.55-1.02); GLUCOSE,RANDOM 112 mg/dL (74-106); SGPT/ALT 130 U/L (12-78); TOT PROT 6.4 g/dl (6.4-8.2)
[2017-02-10 13:40] LABS: ALK PHOS 153 U/L (45-117); CPK 119 IU/L (26-192); TROPONIN I < 0.02 ng/ml (0.00-0.05)
[2017-02-10] MEDS: dilTIAZem HCL 30 MG TABLET (FP) PO SCH (13:41)
[2017-02-10 13:52] LABS: SGOT/AST 77 U/L (15-37)
--- NOTE | 2017-02-10 14:43 | CONS ---
DATE OF CONSULTATION: 02/10/[address] Momin, howard. CONSULTATION REQUESTED BY: MAL High, in the emergency room for rapid atrial fibrillation. HISTORY OF PRESENT ILLNESS: The patient is an 86-year-old Bermudian-speaking female with a pertinent past medical history of chronic hypertension, paroxysmal atrial fibrillation, on anticoagulation, rheumatoid arthritis, reported coronary artery disease with previous stent ? and prior fibular fracture who presents to the emergency room sent by her primary care provider for generalized weakness and dizziness. She was found to be in rapid atrial fibrillation in the 150s and responded nicely to IV Cardizem with rate dropping to the 90s. The history was taken in B[place]udian. She denies chest pain, felt lightheaded with palpitations earlier this morning and a sensation of mild shortness of breath. She states she has been taking all of her medications. She denies fevers, chills, cough. She denies edema, PND, orthopnea, or other symptoms of heart failure. PAST MEDICAL HISTORY: As above and also significant for hypothyroidism, hypertension, PAF on Xarelto. MEDICATIONS: Include Synthroid 50 mcg daily, lisinopril 2.5 daily, Xarelto 15 mg daily, digoxin 0.125 alternating with 0.25 daily metoprolol tartrate 12.5 b.i.d. FAMILY HISTORY: Noncontributory. SOCIAL HISTORY: Nonsmoker. PHYSICAL EXAM: General: Alert, oriented. No distress. VITAL SIGNS: Afebrile. Temperature 97.3. Initial pulse 150 now down to 100. Initial blood pressure 150/100. O2 saturation 96% on room air. HEENT: She is anicteric. No bruits. Heart: S1, S2 tachycardic, irregular. Chest: Clear with slightly decreased breath sounds at the right base. Abdomen: Soft, nontender. Extremities: No edema. LABORATORY DATA: CBC, coagulation studies, and chemistry profile are pending. Chest x-ray is pending. EKG was reviewed and showed rapid atrial fibrillation at 150 beats per minute with nonspecific T-wave changes in the lateral leads. IMPRESSION: 1. Paroxysmal atrial fibrillation now with rapid ventricular response, likely the cause of her fatigue and dizziness. 2. Chronic hypertension. 3. History of pulmonary hypertension. 4. Rheumatoid arthritis. RECOMMENDATIONS: 1. Telemetry. 2. Repeat echo. 3. Check labs, currently pending. 4. Start Cardizem 30 mg p.o. q.6 hours as she responded nicely to IV Cardizem in the emergency room. If the ejection fraction is confirmed normal on today's repeat echo, then would convert her to Cardizem CD in 24 hours depending upon the total amount of short-acting Cardizem she has required. If EF is depressed, will need to switch to Metoprolol as Cardizem is relatively contraindicated with depressed LVEF. 5. Continue home anticoagulation, pending labs. Thank you. ROZINA HUA M.D. [id number] MTDD
--- NOTE | 2017-02-10 14:54 | PDOC ---
*Physical Exam - Vital Signs Last Vital Signs Temp Pulse Resp BP Pulse Ox 97.3 F L 92 H 20 134/72 100 02/10/17 12:10 02/10/17 12:55 02/10/17 12:55 02/10/17 12:55 02/10/17 12:55 ED Treatment Course - LABORATORY CBC & Chemistry Diagram: 02/10/17 13:00 02/10/17 13:00 - ADDITIONAL ORDERS Additional order review: Laboratory Results 02/10/17 02/10/17 02/10/17 13:45 13:00 13:00 PT with INR 18.40 H INR 1.63 H Sodium 141 Potassium 4.4 Chloride 107 Carbon Dioxide 24 Anion Gap 10 BUN 24 H Creatinine 0.8 Creat Clearance w eGFR > 60 Random Glucose 112 H D Calcium 8.9 Total Bilirubin 0.7 D AST 77 H D ALT 130 H D Alkaline Phosphatase 153 H D Creatine Kinase 119 Troponin I < 0.02 B-Natriuretic Peptide Cancelled 8210.68 H Total Protein 6.4 D Albumin 3.6 D 02/10/17 13:00 RBC 4.29 MCV 93.7 MCHC 32.1 RDW 14.0 MPV 9.1 Neutrophils % 80.0 Lymphocytes % 9.9 D Monocytes % 9.5 Eosinophils % 0.1 D Basophils % 0.5 - Medications Given in the ED: ED Medications Discontinued Medications Generic Name Dose Route Start Last Admin Trade Name Freq PRN Reason Stop Dose Admin Diltiazem HCl 20 mg 02/10/17 12:44 02/10/17 13:00 Cardizem Injection - IVPUSH 02/10/17 12:45 20 mg ONCE ONE Administration Diltiazem HCl 30 mg 02/10/17 13:00 02/10/17 13:06 Cardizem - PO 02/10/17 13:01 30 mg ONCE ONE Administration Medical Decision Making - Medical Decision Making 02/10/17 14:52 Elderly female with history of atrial fibrillation presents with atrial fibrillation with rapid ventricular rate. Her blood pressure is good. She is complaining of some generalized weakness. There is no chest pain or shortness of breath. There is no syncope. On examination, her heart is rapidly irregular. Lungs are clear. Abdomen is soft and nontender. Extremities are warm and well perfused. Impression: Symptomatic rapid atrial fibrillation, with history of prior atrial fibrillation. Patient claims good compliance with medications. However, the rate was easily controlled with IV Cardizem. *DC/Admit/Observation/Transfer Diagnosis at time of Disposition: Dizziness Afib Qualifiers: Atrial fibrillation type: unspecified Qualified Code(s): I48.91 - Unspecified atrial fibrillation - Discharge Dispostion Condition at time of disposition: Fair - Referrals - Patient Instructions - Post Discharge Activity
--- NOTE | 2017-02-10 15:24 | HP ---
CC: Feeling tired and dizzy PCP: Dr. Mendoza HPI: 86 yo F w/ h/o CAD w/ stents, afib on xarelto, HFpEF (EF 67.8%, 2016) and HLD sent by her doctor for a-fib w/ RVR. Patient endorses feeling tired and dizzy this past 2 weeks, especially in the morning, a/w mild exertional dyspnea, nausea but no vomiting. She's a rather poor historian and doesn't recall what medications she's on and when her last ECHO or stress test were ever performed. In the ED, she received total of 50mg IV cardizem and seen by cardiology. Patient further denies chest pain, palpitation, diaphoresis, fever, chills, urinary or bowel symptoms. PMH: AFIB,CAD,HTN PSH: Stent Social History: Never smoked, no alcohol or drug use. Lives at home with daughter Family History: non-contributory Allergy: NKDA Home Meds: Levothyroxine [Synthroid -] 0.05 mg PO DAILY 03/13/16 Lisinopril [Zestril] 2.5 mg PO DAILY 03/13/16 Rivaroxaban [Xarelto -] 15 mg PO DAILY 03/13/16 Digoxin [Lanoxin -] 0.125 mg PO DAILY tablet 03/22/16 Digoxin [Lanoxin -] 0.25 mg PO Q6H tablet 03/22/16 Metoprolol Tartrate [Lopressor -] 12.5 mg PO BID #0 tablet 03/22/16 Oxycodone HCl [Roxicodone -] 5 mg PO Q4H PRN #0 tablet MDD 6 tabs 03/22/16 Polyethylene Glycol 3350 [Miralax 119 gm Btl -] 17 gm PO DAILY bottle 03/22/16 ROS: Constitutional: No fevers, night sweats or weight loss. Eyes: blurry vision (chronic) ENT: No URI symptoms, mouth ulcers or dysphagia. Skin: No lesion/rash Cardiovascular:Mild SPAULDING. Pulmonary: No cough (dry or productive), colored sputum, or wheeze. Endocrine: No polyuria, polydipsia, skin /hair changes, heat/cold intolerance. GI: No N/V/C/D, BRBPR, ANUSHA, abd pain or bowel changes. : No frequency, urgency, dysuria, or hematuria. MSK: Denies joint or muscle pain Neurologic: No weakness or numbness. Psychology: No depression, anxiety, or insomnia. Physical Examination Last Vital Signs Temp Pulse Resp BP Pulse Ox 97.3 F L 92 H 20 134/72 100 02/10/17 12:10 02/10/17 12:55 02/10/17 12:55 02/10/17 12:55 02/10/17 12:55 General: Patient lying in bed in no obvious discomfort or distress, AAO x 3. Thin but appropriate to stated age. Eyes: PERRLA ENT: No nasal d/c. MMM. Oropharynx clear with no lesions/erythema. Neck: Supple with no LAD or masses. Lymph Nodes: No cervical or inguinal LAD. Cardiovascular: Tachycardic, Irregularly irregular, S1 and S2 normal, no m/g/r. Lungs: Slight scattered crackles bilaterally. Good air movement. Abdomen: Normoactive bowel sounds. NT, ND, no guarding/rebound Extremeties: Spider angioma bilateral lower extremities. No cyanosis, clubbing or edema. Capillary refill <3 sec. CMP Sodium 141 mmol/L (136-145) 02/10/17 13:00 Potassium 4.4 mmol/L (3.5-5.1) 02/10/17 13:00 Chloride 107 mmol/L (98-107) 02/10/17 13:00 Carbon Dioxide 24 mmol/L (21-32) 02/10/17 13:00 Anion Gap 10 (8-16) 02/10/17 13:00 BUN 24 mg/dL (7-18) H 02/10/17 13:00 Creatinine 0.8 mg/dL (0.55-1.02) 02/10/17 13:00 Creat Clearance w eGFR > 60 (>60) 02/10/17 13:00 Calcium 8.9 mg/dL (8.5-10.1) 02/10/17 13:00 Total Bilirubin 0.7 mg/dL (0.2-1.0) D 02/10/17 13:00 AST 77 U/L (15-37) H D 02/10/17 13:00 ALT 130 U/L (12-78) H D 02/10/17 13:00 Alkaline Phosphatase 153 U/L (45-117) H D 02/10/17 13:00 Total Protein 6.4 g/dl (6.4-8.2) D 02/10/17 13:00 Albumin 3.6 g/dl (3.4-5.0) D 02/10/17 13:00 Troponin, BNP 02/10/17 02/10/17 13:00 13:45 Troponin I < 0.02 B-Natriuretic Peptide 8210.68 H Cancelled Imaging: EKG on 02/10: A-fib with RVR, rate 140 bpm CXR on 02/10: cardiomegaly + b/l congestive changes and pleural effusions ECHO in 2016: EF 67.8%, pulm. HTN, severe TR, dilated atria ECHO on 02/10/17: 35% EF, moderate to severe reduced LV function, moderate aortic sclerosis and tricuspid regurg A/P: 86 yo F w/ h/o CAD w/ stents, afib on xarelto, HFpEF (EF 67.8%, 2016) and HLD admitted to telemetry for a-fib with RVR. A-fib with RVR - Likely 2/2 CHF exacerbation, less likely thyroid induced - Lopressor 25mg PO BID + 5mg IVPUSH PRN Q4h + holding parameters - Trop -ve x 1, cont. to cycle - f/u digoxin and TSH levels - Cont. xarelto and digoxin Systolic CHF (HFrPF) - Lasix 40mg IV BID - Cont. lopressor and lisinopril - Daily weight and strict I/O Transaminitis - Normal baseline - Cont. to trend LFT HTN - Cont. lisinopril and lopressor Hypothyroidism - Cont. synthroid - f/u TSH level FEN - Avoid fluid - Normal lytes - Na+ controlled diet Prophylaxis - DVT: On xarelto and SCDs - GI: not indicated Dispo - Cont. to monitor on telemetry while optimizing medication Narayan [facility] PGY2 Pager: [phone] Visit type - Emergency Visit Emergency Visit: Yes ED Registration Date: 02/10/17 Care time: The patient presented to the Emergency Department on the above date and was hospitalized for further evaluation of their emergent condition. - New Patient This patient is new to me today: Yes Date on this admission: 02/10/17 - Critical Care Critical Care patient: No
--- NOTE | 2017-02-10 15:28 | PDOC ---
*Physical Exam - Vital Signs Patient's care signed out to me during my shift. 86 YOF with h/o A-fib who presents with dizziness found in A-fib with RVR by her provider Dr. Caro and sent into the ED. Given Cardizem IV and PO here in the ED with initial relief, requires repeat dosing PO short acting cardizem. Will admit to inpatient tele when labs result. Last Vital Signs Temp Pulse Resp BP Pulse Ox 97.3 F L 92 H 20 134/72 100 02/10/17 12:10 02/10/17 12:55 02/10/17 12:55 02/10/17 12:55 02/10/17 12:55 ED Treatment Course - LABORATORY CBC & Chemistry Diagram: 02/10/17 13:00 02/10/17 13:00 - ADDITIONAL ORDERS Additional order review: Laboratory Results 02/10/17 02/10/17 02/10/17 13:45 13:00 13:00 PT with INR 18.40 H INR 1.63 H Sodium 141 Potassium 4.4 Chloride 107 Carbon Dioxide 24 Anion Gap 10 BUN 24 H Creatinine 0.8 Creat Clearance w eGFR > 60 Random Glucose 112 H D Calcium 8.9 Total Bilirubin 0.7 D AST 77 H D ALT 130 H D Alkaline Phosphatase 153 H D Creatine Kinase 119 Troponin I < 0.02 B-Natriuretic Peptide Cancelled 8210.68 H Total Protein 6.4 D Albumin 3.6 D 02/10/17 13:00 RBC 4.29 MCV 93.7 MCHC 32.1 RDW 14.0 MPV 9.1 Neutrophils % 80.0 Lymphocytes % 9.9 D Monocytes % 9.5 Eosinophils % 0.1 D Basophils % 0.5 - Medications Given in the ED: ED Medications Discontinued Medications Generic Name Dose Route Start Last Admin Trade Name Freq PRN Reason Stop Dose Admin Diltiazem HCl 20 mg 02/10/17 12:44 02/10/17 13:00 Cardizem Injection - IVPUSH 02/10/17 12:45 20 mg ONCE ONE Administration Diltiazem HCl 30 mg 02/10/17 13:00 02/10/17 13:06 Cardizem - PO 02/10/17 13:01 30 mg ONCE ONE Administration Diltiazem HCl 30 mg 02/10/17 15:07 11/24/17 15:12 Cardizem - PO 02/10/17 15:08 30 mg ONCE ONE Administration *DC/Admit/Observation/Transfer Diagnosis at time of Disposition: Dizziness Afib Qualifiers: Atrial fibrillation type: unspecified Qualified Code(s): I48.91 - Unspecified atrial fibrillation - Discharge Dispostion Condition at time of disposition: Guarded Admit: Yes - Referrals - Patient Instructions - Post Discharge Activity
[2017-02-10] MEDS ORDERED: FUROSEMIDE 40 MG/4 ML INJECTABLE VIAL IVPUSH SCH (15:52)
[2017-02-10] MEDS ORDERED: METOPROLOL TARTRATE 5 MG/5 ML VIAL IVPUSH PRN (15:53)
--- NOTE | 2017-02-10 15:56 | PN ---
Teaching Attending Note Name of Resident: Narayan Mak ATTENDING PHYSICIAN STATEMENT I saw and evaluated the patient. I reviewed the resident's note and discussed the case with the resident. I agree with the resident's findings and plan as documented. SUBJECTIVE: Patient is a 86 yo F with PMHx of CAD w/ stents, afib on xarelto, HLD was sent to the hospital by her doctor for a-fib w/ RVR. Denies any chest pain or palpitation. OBJECTIVE: Vital Signs Temperature 97.3 F L 02/10/17 12:10 Pulse Rate 92 H 02/10/17 12:55 Respiratory Rate 20 02/10/17 12:55 Blood Pressure 134/72 02/10/17 12:55 O2 Sat by Pulse Oximetry (%) 100 02/10/17 12:55 CBCD WBC 7.7 K/mm3 (4.0-10.0) 02/10/17 13:00 RBC 4.29 M/mm3 (3.60-5.2) 02/10/17 13:00 Hgb 12.9 GM/dL (10.7-15.3) 02/10/17 13:00 Hct 40.2 % (32.4-45.2) 02/10/17 13:00 MCV 93.7 fl (80-96) 02/10/17 13:00 MCHC 32.1 g/dl (32.0-36.0) 02/10/17 13:00 RDW 14.0 % (11.6-15.6) 02/10/17 13:00 Plt Count 206 K/MM3 (134-434) D 02/10/17 13:00 MPV 9.1 fl (7.5-11.1) 02/10/17 13:00 CMP Sodium 141 mmol/L (136-145) 02/10/17 13:00 Potassium 4.4 mmol/L (3.5-5.1) 02/10/17 13:00 Chloride 107 mmol/L (98-107) 02/10/17 13:00 Carbon Dioxide 24 mmol/L (21-32) 02/10/17 13:00 Anion Gap 10 (8-16) 02/10/17 13:00 BUN 24 mg/dL (7-18) H 02/10/17 13:00 Creatinine 0.8 mg/dL (0.55-1.02) 02/10/17 13:00 Creat Clearance w eGFR > 60 (>60) 02/10/17 13:00 Random Glucose 112 mg/dL (74-106) H D 02/10/17 13:00 Calcium 8.9 mg/dL (8.5-10.1) 02/10/17 13:00 Total Bilirubin 0.7 mg/dL (0.2-1.0) D 02/10/17 13:00 AST 77 U/L (15-37) H D 02/10/17 13:00 ALT 130 U/L (12-78) H D 02/10/17 13:00 Alkaline Phosphatase 153 U/L (45-117) H D 02/10/17 13:00 Total Protein 6.4 g/dl (6.4-8.2) D 02/10/17 13:00 Albumin 3.6 g/dl (3.4-5.0) D 02/10/17 13:00 CARDIAC ENZYMES Creatine Kinase 119 IU/L (26-192) 02/10/17 13:00 Troponin I < 0.02 ng/ml (0.00-0.05) 02/10/17 13:00 Current Medications Generic Name Dose Route Start Last Admin Trade Name Freq PRN Reason Stop Dose Admin Furosemide 40 mg 02/10/17 15:52 Lasix Injection - IVPUSH BID [facility] Metoprolol Tartrate 25 mg 02/10/17 18:00 Lopressor - PO BID [facility] Rivaroxaban 15 mg 02/11/17 10:00 Xarelto - PO DAILY [facility] Home Medications Medication Instructions Recorded Levothyroxine [Synthroid -] 0.05 mg PO DAILY 03/13/16 Lisinopril [Zestril] 2.5 mg PO DAILY 03/13/16 Rivaroxaban [Xarelto -] 15 mg PO DAILY 03/13/16 Digoxin [Lanoxin -] 0.125 mg PO DAILY tablet 03/22/16 Digoxin [Lanoxin -] 0.25 mg PO Q6H tablet 03/22/16 Metoprolol Tartrate [Lopressor -] 12.5 mg PO BID #0 tablet 03/22/16 Oxycodone HCl [Roxicodone -] 5 mg PO Q4H PRN #0 tablet MDD 6 03/22/16 tabs Polyethylene Glycol 3350 [Miralax 17 gm PO DAILY bottle 03/22/16 119 gm Btl -] CXR: BL pleural effusion L>R, pulmonary congestion ASSESSMENT AND PLAN: Patient is a 86 yo F with PMHx of CAD w/ stents, afib on xarelto, HLD was sent to the hospital by her doctor for a-fib w/ RVR. # Acute diastolic and systolic exacerbation of CHF r/o ACS CE q6x2 more sets, EKG in am # Afib with RVR on Po Lopressor 25mg bid, with prn IV lopresssor 5mg q6h prn to be given if HR >130s. discussed with DVT Px: Xarelto
[2017-02-10] MEDS: DIGOXIN 0.125 MG TABLET (FP) PO SCH (17:41)
[2017-02-10] MEDS: POLYETHYLENE GLYCOL 3350 119 GM BTL PO SCH (18:21)
[2017-02-10] MEDS: LISINOPRIL 5 MG TABLET (FP) PO SCH (18:22)
[2017-02-10] MEDS: METOPROLOL TARTRATE 25 MG TABLET (FP) PO SCH ×2 (18:24→21:14)
[2017-02-10] MEDS: LEVOTHYROXINE NA 50 MCG TABLET (FP) PO SCH (18:24)
[2017-02-10 22:02] LABS: CPK 80 IU/L (26-192); TROPONIN I < 0.02 ng/ml (0.00-0.05)
[2017-02-11] MEDS: FUROSEMIDE 40 MG/4 ML INJECTABLE VIAL IVPUSH SCH ×2 (06:19→14:40)
[2017-02-11] MEDS: LEVOTHYROXINE NA 50 MCG TABLET (FP) PO SCH (06:19)
[2017-02-11 08:16] LABS: CHOLESTEROL 132 mg/dL (50-200)
[2017-02-11] MEDS: DIGOXIN 0.125 MG TABLET (FP) PO SCH ×2 (08:23→09:03)
[2017-02-11] MEDS: LISINOPRIL 5 MG TABLET (FP) PO SCH ×2 (08:23→09:03)
[2017-02-11] MEDS: RIVAROXABAN 15 MG TABLET PO SCH ×2 (08:23→09:03)
[2017-02-11] MEDS: METOPROLOL TARTRATE 25 MG TABLET (FP) PO SCH ×4 (08:32→23:14)
[2017-02-11] MEDS ORDERED: DIGOXIN 0.5 MG/2 ML AMPUL IVPUSH ONE (08:42)
--- NOTE | 2017-02-11 08:47 | PN ---
Progress Note, Physician Chief Complaint: Sitting up in chair, no distress Feeling "better" Heart rate still uncontrolled in 130s, no pauses CXR showed CHF, BNP markedly elevated - Current Medication List Current Medications: Active Medications Digoxin (Lanoxin -) 0.125 mg PO DAILY [facility] Last Admin: 02/11/17 08:23 Dose: 0.125 mg Digoxin (Lanoxin Injection -) 0.25 mg IVPUSH ONCE ONE Stop: 02/11/17 08:43 Furosemide (Lasix Injection -) 40 mg IVPUSH BIDLASIX [facility] Last Admin: 02/11/17 06:19 Dose: 40 mg Levothyroxine Sodium (Synthroid -) 50 mcg PO DAILY@0700 [facility] Last Admin: 02/11/17 06:19 Dose: 50 mcg Lisinopril (Prinivil) 2.5 mg PO DAILY [facility] Last Admin: 02/11/17 08:23 Dose: 2.5 mg Metoprolol Tartrate (Lopressor -) 25 mg PO BID [facility] Last Admin: 02/11/17 08:32 Dose: 25 mg Metoprolol Tartrate (Lopressor Injection -) 5 mg IVPUSH Q4H PRN PRN Reason: HYPERTENSION Polyethylene Glycol (Miralax (For Daily Use) -) 17 gm PO DAILY [facility] Last Admin: 02/10/17 18:21 Dose: Not Given Rivaroxaban (Xarelto -) 15 mg PO DAILY [facility] Last Admin: 02/11/17 08:23 Dose: 15 mg - Objective Vital Signs: Vital Signs Temperature 97.8 F 02/11/17 06:00 Pulse Rate 135 H 02/11/17 08:23 Respiratory Rate 20 02/11/17 06:00 Blood Pressure 134/89 02/11/17 06:00 O2 Sat by Pulse Oximetry (%) 97 02/10/17 21:00 Constitutional: Yes: Calm Cardiovascular: Yes: Tachycardia, Pulse Irregular Respiratory: Yes: Other (rales at bases L >R- improved from yesterda) Gastrointestinal: Yes: Soft Edema: No Neurological: Yes: Alert, Oriented Labs: CBC, BMP 02/10/17 13:00 INR, PTT INR 1.63 (0.82-1.09) H 02/10/17 13:00 - ....Imaging EKG: Image Reviewed Assessment/Plan IMP: AF w/ RVR leading to decompensated CHF New LV systolic dysfx, suspected rate related CM REC: 1. Continue tele 2. Digoxin 0.25mg IV x1 (level is low), continue 0.125mg daily 3. Increase Lopressor to 25mg q6H, convert to Toprol once rates average <100bpm 4. Continue IV Lasix, decreased to daily dosing tomorrow 5. Daily BMP to follow renal fxn and electrolytes 6. Xarelto 7. Repeat echo once rate is controlled. 8. Probably needs ischemic evaluation when rate controlled and euvolemic ( Persantine MIBI)
[2017-02-11 08:58] LABS: ALBUMIN 3.4 g/dl (3.4-5.0); ALK PHOS 139 U/L (45-117); ANION GAP 11 (8-16); CALCIUM 8.3 mg/dL (8.5-10.1); CO2 24 mmol/L (21-32); CREATININE 0.8 mg/dL (0.55-1.02); GLUCOSE,RANDOM 103 mg/dL (74-106); SGOT/AST 65 U/L (15-37); SGPT/ALT 118 U/L (12-78); THYROID STIMULATING HORMONE 4.55 uIU/ml (0.358-3.74); TOT PROT 6.3 g/dl (6.4-8.2)
[2017-02-11] MEDS ORDERED: METOPROLOL TARTRATE 25 MG TABLET (FP) PO SCH (09:00)
[2017-02-11] MEDS: POLYETHYLENE GLYCOL 3350 119 GM BTL PO SCH (09:03)
--- NOTE | 2017-02-11 09:40 | PN ---
Physical Exam: SUBJECTIVE: Patient seen and examined OBJECTIVE: Vital Signs Temperature 97.8 F 02/11/17 06:00 Pulse Rate 130 H 02/11/17 09:24 Respiratory Rate 20 02/11/17 06:00 Blood Pressure 134/89 02/11/17 06:00 O2 Sat by Pulse Oximetry (%) 97 02/10/17 21:00 GENERAL: The patient is awake, alert, and fully oriented, in no acute distress. HEAD: Normal with no signs of trauma. EYES: PERRL, extraocular movements intact, sclera anicteric, conjunctiva clear. ENT: Ears normal, oropharynx clear without exudates, moist mucous membranes. NECK: Trachea midline, full range of motion, supple. LUNGS: Breath sounds equal, clear to auscultation bilaterally, no wheezes, no crackles, no accessory muscle use. HEART: Regular rate and rhythm, S1, S2 without murmur, rub or gallop. ABDOMEN: Soft, nontender, nondistended, normoactive bowel sounds, no guarding, no rebound, no hepatosplenomegaly, no masses. EXTREMITIES: 2+ pulses, warm, well-perfused, no edema. NEUROLOGICAL: Cranial nerves II through XII grossly intact. Normal speech, gait not observed. PSYCH: Normal mood, normal affect. SKIN: Warm, dry, normal turgor, no rashes or lesions noted CBCD WBC 7.7 K/mm3 (4.0-10.0) 02/10/17 13:00 RBC 4.29 M/mm3 (3.60-5.2) 02/10/17 13:00 Hgb 12.9 GM/dL (10.7-15.3) 02/10/17 13:00 Hct 40.2 % (32.4-45.2) 02/10/17 13:00 MCV 93.7 fl (80-96) 02/10/17 13:00 MCHC 32.1 g/dl (32.0-36.0) 02/10/17 13:00 RDW 14.0 % (11.6-15.6) 02/10/17 13:00 Plt Count 206 K/MM3 (134-434) D 02/10/17 13:00 MPV 9.1 fl (7.5-11.1) 02/10/17 13:00 CMP Sodium 140 mmol/L (136-145) 02/11/17 05:25 Potassium 3.6 mmol/L (3.5-5.1) 02/11/17 05:25 Chloride 105 mmol/L (98-107) 02/11/17 05:25 Carbon Dioxide 24 mmol/L (21-32) 02/11/17 05:25 Anion Gap 11 (8-16) 02/11/17 05:25 BUN 16 mg/dL (7-18) D 02/11/17 05:25 Creatinine 0.8 mg/dL (0.55-1.02) 02/11/17 05:25 Creat Clearance w eGFR > 60 (>60) 02/11/17 05:25 Random Glucose 103 mg/dL (74-106) 02/11/17 05:25 Calcium 8.3 mg/dL (8.5-10.1) L 02/11/17 05:25 Total Bilirubin 1.0 mg/dL (0.2-1.0) D 02/11/17 05:25 AST 65 U/L (15-37) H 02/11/17 05:25 ALT 118 U/L (12-78) H 02/11/17 05:25 Alkaline Phosphatase 139 U/L (45-117) H 02/11/17 05:25 Total Protein 6.3 g/dl (6.4-8.2) L 02/11/17 05:25 Albumin 3.4 g/dl (3.4-5.0) 02/11/17 05:25 CARDIAC ENZYMES Creatine Kinase 80 IU/L (26-192) 02/10/17 20:30 Troponin I < 0.02 ng/ml (0.00-0.05) 02/10/17 20:30 Home Medications Medication Instructions Recorded Levothyroxine [Synthroid -] 0.05 mg PO DAILY 03/13/16 Lisinopril [Zestril] 2.5 mg PO DAILY 03/13/16 Rivaroxaban [Xarelto -] 15 mg PO BID 03/13/16 Digoxin [Lanoxin -] 0.125 mg PO DAILY tablet 03/22/16 Metoprolol Tartrate [Lopressor -] 25 mg PO BID 02/10/17 Active Medications Generic Name Dose Route Start Last Admin Trade Name Freq PRN Reason Stop Dose Admin Digoxin 0.125 mg 02/10/17 17:00 02/11/17 09:03 Lanoxin - PO Not Given DAILY [facility] Furosemide 40 mg 02/10/17 16:10 02/11/17 06:19 Lasix Injection - IVPUSH 40 mg BIDLASIX [facility] Administration Levothyroxine Sodium 50 mcg 02/10/17 16:30 02/11/17 06:19 Synthroid - PO 50 mcg DAILY@0700 [facility] Administration Lisinopril 2.5 mg 02/10/17 16:45 02/11/17 09:03 Prinivil PO Not Given DAILY [facility] Metoprolol Tartrate 5 mg 02/10/17 15:53 Lopressor Injection - IVPUSH Q4H PRN HYPERTENSION Metoprolol Tartrate 25 mg 02/11/17 09:13 Lopressor - PO Q6HPO [facility] Polyethylene Glycol 17 gm 02/10/17 16:30 02/11/17 09:03 Miralax (For Daily Use) - PO Not Given DAILY [facility] Rivaroxaban 15 mg 02/11/17 10:00 02/11/17 09:03 Xarelto - PO Not Given DAILY [facility] CXR: BL pleural effusion L>R, pulmonary congestion ASSESSMENT AND PLAN: Patient is a 86 yo F with PMHx of CAD w/ stents, afib on xarelto, HLD was sent to the hospital by her doctor for a-fib w/ RVR. # Acute diastolic and systolic exacerbation of CHF on digoxin po 0.125mg daily given one dose of IV digoxin 0.25mg , continue with IV Lasix , daily BMP # Afib with RVR on Xarelto Po Lopressor 25mg q6h, increased from bid once the rate is <100bpm convert to oral Xl as per cardio. recommendation, with prn IV lopressor 5mg q6h prn to be given if HR >130s. discussed with . As per cardio most likely will need ischemic evaluation when rate controlled and euvolemic (Persantine MIBI). DVT Px: Xarelto Visit type - Emergency Visit Emergency Visit: Yes ED Registration Date: 02/10/17 Care time: The patient presented to the Emergency Department on the above date and was hospitalized for further evaluation of their emergent condition. - New Patient This patient is new to me today: No - Critical Care Critical Care patient: No
[2017-02-12] MEDS: LEVOTHYROXINE NA 50 MCG TABLET (FP) PO SCH (06:04)
[2017-02-12] MEDS: METOPROLOL TARTRATE 25 MG TABLET (FP) PO SCH (06:04)
[2017-02-12] MEDS: FUROSEMIDE 40 MG/4 ML INJECTABLE VIAL IVPUSH SCH ×4 (06:04→10:39)
--- NOTE | 2017-02-12 09:08 | PN ---
Progress Note, Physician Chief Complaint: Heart rate much improved. History of Present Illness: No chest pain - Current Medication List Current Medications: Active Medications Digoxin (Lanoxin -) 0.125 mg PO DAILY [facility] Last Admin: 02/11/17 09:03 Dose: Not Given Furosemide (Lasix Injection -) 40 mg IVPUSH BIDLASIX [facility] Last Admin: 02/12/17 06:04 Dose: 40 mg Levothyroxine Sodium (Synthroid -) 50 mcg PO DAILY@0700 [facility] Last Admin: 02/12/17 06:04 Dose: 50 mcg Lisinopril (Prinivil) 2.5 mg PO DAILY [facility] Last Admin: 02/11/17 09:03 Dose: Not Given Metoprolol Tartrate (Lopressor Injection -) 5 mg IVPUSH Q4H PRN PRN Reason: HYPERTENSION Metoprolol Tartrate (Lopressor -) 25 mg PO Q6HPO [facility] Last Admin: 02/12/17 06:04 Dose: 25 mg Polyethylene Glycol (Miralax (For Daily Use) -) 17 gm PO DAILY [facility] Last Admin: 02/11/17 09:03 Dose: Not Given Rivaroxaban (Xarelto -) 15 mg PO DAILY [facility] Last Admin: 02/11/17 09:03 Dose: Not Given - Objective Vital Signs: Vital Signs Temperature 98.2 F 02/12/17 05:00 Pulse Rate 98 H 02/12/17 05:00 Respiratory Rate 20 02/12/17 05:00 Blood Pressure 142/75 02/12/17 05:00 O2 Sat by Pulse Oximetry (%) 98 02/11/17 21:00 Constitutional: Yes: Calm Cardiovascular: Yes: Pulse Irregular Respiratory: Yes: Other (improved rales b/l) Gastrointestinal: Yes: Soft Edema: No Neurological: Yes: Alert Labs: CBC, BMP 02/10/17 13:00 02/11/17 05:25 INR, PTT INR 1.63 (0.82-1.09) H 02/10/17 13:00 - ....Imaging EKG: Image Reviewed (TELE: AF at 93bpm, average just under 100bpm) Assessment/Plan IMP: AF w/ RVR leading to decompensated CHF New LV systolic dysfx, suspected rate related CM REC: 1. Continue tele 2. Cont dig and Lopressor; Can convert to Toprol XL today. 3. Decrease Lasix to daily 4. Daily BMP to follow renal fxn and electrolytes 5. Xarelto 6. Repeat echo once rate is controlled. 7. Probably needs ischemic evaluation when rate controlled and euvolemic ( Persantine MIBI) Coverage for [facility]
[2017-02-12] MEDS: METOPROLOL SUCCINATE 50 MG TAB.SR.24H (FP) PO SCH ×2 (10:35→10:36)
[2017-02-12] MEDS: RIVAROXABAN 15 MG TABLET PO SCH (10:36)
[2017-02-12] MEDS: LISINOPRIL 5 MG TABLET (FP) PO SCH ×2 (10:36→10:37)
[2017-02-12] MEDS: DIGOXIN 0.125 MG TABLET (FP) PO SCH (10:36)
[2017-02-12] MEDS: POLYETHYLENE GLYCOL 3350 119 GM BTL PO SCH (10:39)
--- NOTE | 2017-02-12 14:45 | PN ---
Progress Note (short form) - Note Progress Note: Patient is feeling better, HR is better controlled now, feels better, no chest pain or palpitations. Vital Signs Temperature 98.2 F 02/12/17 05:00 Pulse Rate 100 H 02/12/17 10:36 Respiratory Rate 20 02/12/17 05:00 Blood Pressure 142/75 02/12/17 05:00 O2 Sat by Pulse Oximetry (%) 98 02/11/17 21:00 GENERAL: The patient is awake, alert, and fully oriented, in no acute distress. HEAD: Normal with no signs of trauma. EYES: PERRL, extraocular movements intact, sclera anicteric, conjunctiva clear. ENT: Ears normal, oropharynx clear without exudates, moist mucous membranes. NECK: Trachea midline, full range of motion, supple. LUNGS: Breath sounds equal, clear to auscultation bilaterally, no wheezes, no crackles, no accessory muscle use. HEART: irregurly irregular with a rate of 100, S1, S2 positive, SEM2/6 no rub or gallop. ABDOMEN: Soft, nontender, nondistended, normoactive bowel sounds, no guarding, no rebound, no hepatosplenomegaly, no masses. EXTREMITIES: 2+ pulses, warm, well-perfused, no edema. NEUROLOGICAL: Cranial nerves II through XII grossly intact. Normal speech, gait not observed. PSYCH: Normal mood, normal affect. SKIN: Warm, dry, normal turgor, no rashes or lesions noted CBCD WBC 7.7 K/mm3 (4.0-10.0) 02/10/17 13:00 RBC 4.29 M/mm3 (3.60-5.2) 02/10/17 13:00 Hgb 12.9 GM/dL (10.7-15.3) 02/10/17 13:00 Hct 40.2 % (32.4-45.2) 02/10/17 13:00 MCV 93.7 fl (80-96) 02/10/17 13:00 MCHC 32.1 g/dl (32.0-36.0) 02/10/17 13:00 RDW 14.0 % (11.6-15.6) 02/10/17 13:00 Plt Count 206 K/MM3 (134-434) D 02/10/17 13:00 MPV 9.1 fl (7.5-11.1) 02/10/17 13:00 CMP Sodium 140 mmol/L (136-145) 02/11/17 05:25 Potassium 3.6 mmol/L (3.5-5.1) 02/11/17 05:25 Chloride 105 mmol/L (98-107) 02/11/17 05:25 Carbon Dioxide 24 mmol/L (21-32) 02/11/17 05:25 Anion Gap 11 (8-16) 02/11/17 05:25 BUN 16 mg/dL (7-18) D 02/11/17 05:25 Creatinine 0.8 mg/dL (0.55-1.02) 02/11/17 05:25 Creat Clearance w eGFR > 60 (>60) 02/11/17 05:25 Random Glucose 103 mg/dL (74-106) 02/11/17 05:25 Calcium 8.3 mg/dL (8.5-10.1) L 02/11/17 05:25 Total Bilirubin 1.0 mg/dL (0.2-1.0) D 02/11/17 05:25 AST 65 U/L (15-37) H 02/11/17 05:25 ALT 118 U/L (12-78) H 02/11/17 05:25 Alkaline Phosphatase 139 U/L (45-117) H 02/11/17 05:25 Total Protein 6.3 g/dl (6.4-8.2) L 02/11/17 05:25 Albumin 3.4 g/dl (3.4-5.0) 02/11/17 05:25 CARDIAC ENZYMES Creatine Kinase 80 IU/L (26-192) 02/10/17 20:30 Troponin I < 0.02 ng/ml (0.00-0.05) 02/10/17 20:30 Current Medications Generic Name Dose Route Start Last Admin Trade Name Paul PRN Reason Stop Dose Admin Digoxin 0.125 mg 02/10/17 17:00 02/12/17 10:36 Lanoxin - PO 0.125 mg DAILY SIMON Administration Furosemide 40 mg 02/12/17 09:15 02/12/17 10:39 Lasix Injection - IVPUSH Not Given DAILY SIMON Levothyroxine Sodium 50 mcg 02/10/17 16:30 02/12/17 06:04 Synthroid - PO 50 mcg DAILY@0700 SIMON Administration Lisinopril 2.5 mg 02/10/17 16:45 02/12/17 10:37 Prinivil PO Not Given DAILY SIMON Metoprolol Succinate 50 mg 02/12/17 09:15 02/12/17 10:36 Toprol Xl - PO Not Given DAILY SIMON Metoprolol Tartrate 5 mg 02/10/17 15:53 Lopressor Injection - IVPUSH Q4H PRN HYPERTENSION Polyethylene Glycol 17 gm 02/10/17 16:30 02/12/17 10:39 Miralax (For Daily Use) - PO 17 gm DAILY SIMON Administration Rivaroxaban 15 mg 02/11/17 10:00 02/12/17 10:36 Xarelto - PO 15 mg DAILY SIMON Administration Home Medications Medication Instructions Recorded Levothyroxine [Synthroid -] 0.05 mg PO DAILY 03/13/16 Lisinopril [Zestril] 2.5 mg PO DAILY 03/13/16 Rivaroxaban [Xarelto -] 15 mg PO BID 03/13/16 Digoxin [Lanoxin -] 0.125 mg PO DAILY tablet 03/22/16 Metoprolol Tartrate [Lopressor -] 25 mg PO BID 02/10/17 CXR: BL pleural effusion L>R, pulmonary congestion ASSESSMENT AND PLAN: Patient is a 86 yo F with PMHx of CAD w/ stents, afib on xarelto, HLD was sent to the hospital by her doctor for a-fib w/ RVR. # Acute diastolic and systolic exacerbation of CHF on digoxin po 0.125mg daily given one dose of IV digoxin 0.25mg , continue with IV Lasix , daily BMP # Afib with RVR rate is better controlled now 100's on Xarelto Po Lopressor 25mg q6h, increased from bid once the rate is <100bpm convert to oral Xl as per cardio. recommendation, with prn IV lopressor 5mg q6h prn to be given if HR > 130s. discussed with . As per cardio most likely will need ischemic evaluation when rate controlled and euvolemic (Persantine MIBI, will check with cardio. [place]. DVT Px: Xarelto Visit type - Emergency Visit Emergency Visit: Yes ED Registration Date: 02/10/17 Care time: The patient presented to the Emergency Department on the above date and was hospitalized for further evaluation of their emergent condition. - New Patient This patient is new to me today: No - Critical Care Critical Care patient: No
[2017-02-13] MEDS: LEVOTHYROXINE NA 50 MCG TABLET (FP) PO SCH (06:17)
--- NOTE | 2017-02-13 06:36 | PN ---
Physical Exam: SUBJECTIVE: Patient seen and examined by me this AM - Pt states she is feeling much better. No major overnight events. Rate is well controlled today. - Denies fevers/chills, CP, cough, SOB, S[place], N/V, abdominal pain/discomfort, dysuria, diarrhea/constipation, LE edema, dizziness. - Endorses occasional palpitations and intermittent BAUER. Able to walk to bathroom with little difficulty. OBJECTIVE: Vital Signs Intake & Output 02/10/17 02/11/17 02/12/17 02/13/17 23:59 23:59 23:59 23:59 Intake Total 220 200 210 0 Balance 220 200 210 0 Weight 44.452 kg 42.297 kg 40.597 kg Period Temp Pulse Resp BP Sys/Gandara Pulse Ox Last 24 Hr 97.3 F-98 F 88-105 18-20 97-135/56-86 98-100 GENERAL: The patient is awake, alert, and fully oriented, in no acute distress. [place]ander-speaking. Good spirits HEAD: NCAT EYES: PERRL, extraocular movements intact, sclera anicteric, conjunctiva clear. No ptosis. ENT: Ears normal, nares patent, oropharynx clear without exudates, moist mucous membranes. Poor dentition NECK: Trachea midline, supple. LUNGS: Breath sounds decreased at bases, no wheezes, no crackles, no accessory muscle use. HEART: Irregularly irregular rhythm, S1, S2. Unable to appreciate murmur, gallop or rub ABDOMEN: Soft, nontender, nondistended, normoactive bowel sounds, no guarding, no rebound. Upper EXTREMITIES: 2+ pulses, warm, well-perfused, no edema. Lower extremities: 2+ pulses, wwp. No edema. BL superficial varicose veins/ spider angiomas on anterior shins. NEUROLOGICAL: Cranial nerves II through XII grossly intact. Normal speech, gait not observed. PSYCH: Normal mood, normal affect. Laboratory Last Values CBC, BMP CBC, BMP 02/10/17 13:00 02/11/17 05:25 Laboratory Last Values WBC 7.7 K/mm3 (4.0-10.0) 02/10/17 13:00 RBC 4.29 M/mm3 (3.60-5.2) 02/10/17 13:00 Hgb 12.9 GM/dL (10.7-15.3) 02/10/17 13:00 Hct 40.2 % (32.4-45.2) 02/10/17 13:00 MCV 93.7 fl (80-96) 02/10/17 13:00 MCH 30.1 pg (25.7-33.7) 02/10/17 13:00 MCHC 32.1 g/dl (32.0-36.0) 02/10/17 13:00 RDW 14.0 % (11.6-15.6) 02/10/17 13:00 Plt Count 206 K/MM3 (134-434) D 02/10/17 13:00 MPV 9.1 fl (7.5-11.1) 02/10/17 13:00 Neutrophils % 80.0 % (42.8-82.8) 02/10/17 13:00 Lymphocytes % 9.9 % (8-40) D 02/10/17 13:00 Monocytes % 9.5 % (3.8-10.2) 02/10/17 13:00 Eosinophils % 0.1 % (0-4.5) D 02/10/17 13:00 Basophils % 0.5 % (0-2.0) 02/10/17 13:00 PT with INR 18.40 SEC (9.98-11.88) H 02/10/17 13:00 INR 1.63 (0.82-1.09) H 02/10/17 13:00 Sodium 140 mmol/L (136-145) 02/11/17 05:25 Potassium 3.6 mmol/L (3.5-5.1) 02/11/17 05:25 Chloride 105 mmol/L (98-107) 02/11/17 05:25 Carbon Dioxide 24 mmol/L (21-32) 02/11/17 05:25 Anion Gap 11 (8-16) 02/11/17 05:25 BUN 16 mg/dL (7-18) D 02/11/17 05:25 Creatinine 0.8 mg/dL (0.55-1.02) 02/11/17 05:25 Creat Clearance w eGFR > 60 (>60) 02/11/17 05:25 Random Glucose 103 mg/dL (74-106) 02/11/17 05:25 Calcium 8.3 mg/dL (8.5-10.1) L 02/11/17 05:25 Magnesium 2.0 mg/dL (1.8-2.4) 02/11/17 05:25 Total Bilirubin 1.0 mg/dL (0.2-1.0) D 02/11/17 05:25 AST 65 U/L (15-37) H 02/11/17 05:25 ALT 118 U/L (12-78) H 02/11/17 05:25 Alkaline Phosphatase 139 U/L (45-117) H 02/11/17 05:25 Creatine Kinase 80 IU/L (26-192) 02/10/17 20:30 Troponin I < 0.02 ng/ml (0.00-0.05) 02/10/17 20:30 B-Natriuretic Peptide Cancelled 02/10/17 13:45 Total Protein 6.3 g/dl (6.4-8.2) L 02/11/17 05:25 Albumin 3.4 g/dl (3.4-5.0) 02/11/17 05:25 Triglycerides 78 mg/dL (35-160) 02/11/17 05:25 Cholesterol 132 mg/dL (50-200) D 02/11/17 05:25 Total LDL Cholesterol 60 mg/dL (5-100) 02/11/17 05:25 HDL Cholesterol 74 mg/dL (40-60) H D 02/11/17 05:25 TSH 4.55 uIU/ml (0.358-3.74) H D 02/11/17 05:25 Digoxin 0.5464 ng/ml (0.8-2.0) L 02/10/17 20:30 Active Medications Generic Name Dose Route Start Last Admin Trade Name Freq PRN Reason Stop Dose Admin Digoxin 0.125 mg 02/10/17 17:00 02/12/17 10:36 Lanoxin - PO 0.125 mg DAILY SIMON Administration Furosemide 40 mg 02/12/17 09:15 02/12/17 10:39 Lasix Injection - IVPUSH Not Given DAILY SIMON Levothyroxine Sodium 50 mcg 02/10/17 16:30 02/13/17 06:17 Synthroid - PO 50 mcg DAILY@0700 SIMON Administration Lisinopril 2.5 mg 02/10/17 16:45 02/12/17 10:37 Prinivil PO Not Given DAILY SIMON Metoprolol Succinate 50 mg 02/12/17 09:15 02/12/17 10:36 Toprol Xl - PO Not Given DAILY SIMON Metoprolol Tartrate 5 mg 02/10/17 15:53 Lopressor Injection - IVPUSH Q4H PRN HYPERTENSION Polyethylene Glycol 17 gm 02/10/17 16:30 02/12/17 10:39 Miralax (For Daily Use) - PO 17 gm DAILY SIMON Administration Rivaroxaban 15 mg 02/11/17 10:00 02/12/17 10:36 Xarelto - PO 15 mg DAILY SIMON Administration No recent micro CXR 02/10 - The heart size is enlarged with pulmonary vascular congestion and bilateral pleural effusions. Echo 02/10 - LVEF reduced in setting of afib with RVR, moderate MR, moderate TR , RV pressure 40-50, LAE EKG 02/10 - Afib w/ RVR, rate of ~140 Prior echo in 2016 -> pulm htn, severe TR, EF ~67%, dilated atria ASSESSMENT/PLAN: 86 yo F w/ pmh CAD (prior stents, date unknown), afib (xarelto for AC) , HfPef and HLD sent from PCP for afib w/ rvr in the setting of 2 weeks of persistent fatigue and dizziness. #Afib w/ rvr - Aflutter w/ rate of 80-100s today. Not complaining of persistent palpitations, lightheadness today. Aflutter noted on tele today. - Rate control -> Toprol XL 50 mg PO - Lopressor 5mg IV push for breakthrough tachycardia - Cardiac monitoring - D/c digoxin/ lopressor - Xarelto for long-term AC per cardiology recs #Acute on chronic CHF (HfPef)- BNP 8200~ Echo LVEF reduced in setting of afib with RVR - Decreased lasix to 40 PO daily - Repeat Echo when adequately rate controlled - Persantine stress test in AM tomorrow - Daily weights - Strict Is and Os - F/u with Dr. Andino on additional testing tomorrow before possible d/c - Outpt cardiology f/u - Cardiology recs appreciatd #HTN - Continue home lisinopril. Started on toprol 50mg PO daily today - BP well controlled - Vitals q4h. Monitor BP for hypotension #Transaminitis - Borderline elevated, AST/ALT, Alk phos downtrending - Trend LFTs #Hypothyroidism - TSH 4.55 02/11 - continue home synthroid 50 mcg PO #HLD - Triglycerides 78, total cholesterol 132, HDL 74, LDL 60 - Repeat lipid panel in 3 months as outpt - Will not initiate statin in setting of transaminitis #Hypokalemia - 3.6 this AM - Repleted PO kcl - Monitor BMP daily #Constipation - Miralax #PPX - Xarelto 15 mg PO daily - SCDs #FEN Fluids - PO fluids. Limit intake to <2L Electrolytes - Daily BMPs Nutrition - Cardiac/low-sodium diet. <2g sodium Dispo: Continue to monitor on floors. Persantine stress test in AM. Possible d/ c tomorrow with outpt cardiology f/u Plan discussed with attending, Dr. Miles Steele, PGY1 Visit type - Emergency Visit Emergency Visit: No - New Patient This patient is new to me today: Yes Date on this admission: 02/13/17 - Critical Care Critical Care patient: No
--- NOTE | 2017-02-13 09:04 | PN ---
Teaching Attending Note Name of Resident: Luisito Steele ATTENDING PHYSICIAN STATEMENT I saw and evaluated the patient. I reviewed the resident's note and discussed the case with the resident. I agree with the resident's findings and plan as documented. SUBJECTIVE: Patient is feeling better, initially wanted to go home and stated that she did not want any treatments then agreed to stay for a stress test. OBJECTIVE: Vital Signs Temperature 97.4 F L 02/13/17 06:00 Pulse Rate 96 H 02/13/17 06:00 Respiratory Rate 18 02/13/17 06:00 Blood Pressure 132/84 02/13/17 06:00 O2 Sat by Pulse Oximetry (%) 100 02/12/17 21:00 CBCD WBC 7.7 K/mm3 (4.0-10.0) 02/10/17 13:00 RBC 4.29 M/mm3 (3.60-5.2) 02/10/17 13:00 Hgb 12.9 GM/dL (10.7-15.3) 02/10/17 13:00 Hct 40.2 % (32.4-45.2) 02/10/17 13:00 MCV 93.7 fl (80-96) 02/10/17 13:00 MCHC 32.1 g/dl (32.0-36.0) 02/10/17 13:00 RDW 14.0 % (11.6-15.6) 02/10/17 13:00 Plt Count 206 K/MM3 (134-434) D 02/10/17 13:00 MPV 9.1 fl (7.5-11.1) 02/10/17 13:00 CMP Sodium 140 mmol/L (136-145) 02/11/17 05:25 Potassium 3.6 mmol/L (3.5-5.1) 02/11/17 05:25 Chloride 105 mmol/L (98-107) 02/11/17 05:25 Carbon Dioxide 24 mmol/L (21-32) 02/11/17 05:25 Anion Gap 11 (8-16) 02/11/17 05:25 BUN 16 mg/dL (7-18) D 02/11/17 05:25 Creatinine 0.8 mg/dL (0.55-1.02) 02/11/17 05:25 Creat Clearance w eGFR > 60 (>60) 11/25/17 05:25 Random Glucose 103 mg/dL (74-106) 02/11/17 05:25 Calcium 8.3 mg/dL (8.5-10.1) L 02/11/17 05:25 Total Bilirubin 1.0 mg/dL (0.2-1.0) D 02/11/17 05:25 AST 65 U/L (15-37) H 02/11/17 05:25 ALT 118 U/L (12-78) H 02/11/17 05:25 Alkaline Phosphatase 139 U/L (45-117) H 02/11/17 05:25 Total Protein 6.3 g/dl (6.4-8.2) L 02/11/17 05:25 Albumin 3.4 g/dl (3.4-5.0) 02/11/17 05:25 CARDIAC ENZYMES Creatine Kinase 80 IU/L (26-192) 02/10/17 20:30 Troponin I < 0.02 ng/ml (0.00-0.05) 02/10/17 20:30 Current Medications Generic Name Dose Route Start Last Admin Trade Name Freq PRN Reason Stop Dose Admin Furosemide 40 mg 02/13/17 12:00 02/13/17 12:43 Lasix - PO 40 mg DAILY [facility] Administration Levothyroxine Sodium 50 mcg 02/10/17 16:30 02/13/17 06:17 Synthroid - PO 50 mcg DAILY@0700 SIMON Administration Lisinopril 2.5 mg 02/10/17 16:45 02/13/17 10:26 Prinivil PO 2.5 mg DAILY SIMON Administration Metoprolol Succinate 50 mg 02/12/17 09:15 02/13/17 10:26 Toprol Xl - PO 50 mg DAILY [facility] Administration Metoprolol Tartrate 5 mg 02/10/17 15:53 Lopressor Injection - IVPUSH Q4H PRN HYPERTENSION Polyethylene Glycol 17 gm 02/10/17 16:30 02/13/17 10:25 Miralax (For Daily Use) - PO Not Given DAILY [facility] Rivaroxaban 15 mg 02/11/17 10:00 02/13/17 10:26 Xarelto - PO 15 mg DAILY SIMON Administration Home Medications Medication Instructions Recorded Levothyroxine [Synthroid -] 0.05 mg PO DAILY 03/13/16 Lisinopril [Zestril] 2.5 mg PO DAILY 03/13/16 Rivaroxaban [Xarelto -] 15 mg PO BID 03/13/16 Digoxin [Lanoxin -] 0.125 mg PO DAILY tablet 03/22/16 Metoprolol Tartrate [Lopressor -] 25 mg PO BID 02/10/17 PE: nice female, comfortably lying in bed. Chest CTAbl, decreased BS BL Heart:S1S2 positive, irregularly irregular. abdomen: soft, NT rest of PE per resident's notes. CXR: BL pleural effusion L>R, pulmonary congestion ASSESSMENT AND PLAN: Patient is a 86 yo F with PMHx of CAD w/ stents, afib on xarelto, HLD was sent to the hospital by her doctor for a-fib w/ RVR. # Acute diastolic and systolic exacerbation of CHF on digoxin po 0.125mg daily given one dose of IV digoxin 0.25mg , continue with IV Lasix , daily BMP # Afib with RVR rate is better controlled now in high 90s on Xarelto , Po Toprol XL 50mg changed from Lopressor 25mg q6h. Patient agreed for having stress test in am. will hold am toprol dose. Patient does not want anything else at this time. Ordered Persantine MIBI. Discussed in details with Tr[employer] dr. Sherman, discussed with the patient's daughter in details. As per cardio most likely will need ischemic evaluation when rate controlled and euvolemic (Persantine MIBI)is ordered and discussed with with cardio. Montgomery. DVT Px: Xarelto going for MIBI stress test in am, will hold toprol am dose
[2017-02-13] MEDS: DIGOXIN 0.125 MG TABLET (FP) PO SCH (10:24)
[2017-02-13] MEDS: POLYETHYLENE GLYCOL 3350 119 GM BTL PO SCH (10:25)
[2017-02-13] MEDS: FUROSEMIDE 40 MG/4 ML INJECTABLE VIAL IVPUSH SCH (10:25)
[2017-02-13] MEDS: METOPROLOL SUCCINATE 50 MG TAB.SR.24H (FP) PO SCH (10:26)
[2017-02-13] MEDS: LISINOPRIL 5 MG TABLET (FP) PO SCH (10:26)
[2017-02-13] MEDS: RIVAROXABAN 15 MG TABLET PO SCH (10:26)
--- NOTE | 2017-02-13 11:46 | PN ---
Progress Note, Physician History of Present Illness: 86 yo F w/ h/o CAD w/ stents, afib on xarelto, HFpEF (EF 67.8%, 2016) and HLD sent by her doctor for a-fib w/ RVR. Patient endorses feeling tired and dizzy this past 2 weeks, especially in the morning, a/w mild exertional dyspnea , nausea but no vomiting. She's a rather poor historian and doesn't recall what medications she's on and when her last ECHO or stress test were ever performed. In the ED, she received total of 50mg IV cardizem and seen by cardiology. Patient further denies chest pain, palpitation, diaphoresis, fever, chills, urinary or bowel symptoms. - Current Medication List Current Medications: Active Medications Digoxin (Lanoxin -) 0.125 mg PO DAILY [facility] Last Admin: 02/13/17 10:24 Dose: 0.125 mg Furosemide (Lasix Injection -) 40 mg IVPUSH DAILY [facility] Last Admin: 02/13/17 10:25 Dose: 40 mg Levothyroxine Sodium (Synthroid -) 50 mcg PO DAILY@0700 [facility] Last Admin: 02/13/17 06:17 Dose: 50 mcg Lisinopril (Prinivil) 2.5 mg PO DAILY [facility] Last Admin: 02/13/17 10:26 Dose: 2.5 mg Metoprolol Succinate (Toprol Xl -) 50 mg PO DAILY [facility] Last Admin: 02/13/17 10:26 Dose: 50 mg Metoprolol Tartrate (Lopressor Injection -) 5 mg IVPUSH Q4H PRN PRN Reason: HYPERTENSION Polyethylene Glycol (Miralax (For Daily Use) -) 17 gm PO DAILY [facility] Last Admin: 02/13/17 10:25 Dose: Not Given Rivaroxaban (Xarelto -) 15 mg PO DAILY [facility] Last Admin: 02/13/17 10:26 Dose: 15 mg - Objective Vital Signs: Vital Signs Temperature 98.6 F 02/13/17 10:00 Pulse Rate 92 H 02/13/17 10:24 Respiratory Rate 18 02/13/17 10:00 Blood Pressure 112/66 02/13/17 10:00 O2 Sat by Pulse Oximetry (%) 100 02/12/17 21:00 Eyes: Yes: WNL, Conjunctiva Clear, EOM Intact HENT: Yes: WNL, Atraumatic, Normocephalic Neck: Yes: WNL, Supple, Trachea Midline Cardiovascular: Yes: Pulse Irregular, S1, S2 Respiratory: Yes: WNL, Regular, CTA Bilaterally Gastrointestinal: Yes: WNL, Normal Bowel Sounds Genitourinary: Yes: WNL Musculoskeletal: Yes: WNL Extremities: Yes: WNL Edema: No Integumentary: Yes: WNL Neurological: Yes: WNL, Alert, Oriented ...Motor Strength: WNL Psychiatric: Yes: WNL Labs: CBC, BMP 02/10/17 13:00 02/11/17 05:25 INR, PTT INR 1.63 (0.82-1.09) H 02/10/17 13:00 Assessment/Plan IMP: AF w/ RVR leading to decompensated CHF New LV systolic dysfx, suspected rate related CM h/o CAD w/ stents, REC: 1. Continue tele 2. On Toprol XL today. 3. Decrease Lasix to daily 4. Daily BMP to follow renal fxn and electrolytes 5. Xarelto 6. Repeat echo once rate is controlled. 7. Probably needs ischemic evaluation when rate controlled and euvolemic ( Persantine MIBI) 8. d/c digoxin 9. I.V. lasix not given due to hypotension - will change to PO
[2017-02-13] MEDS: FUROSEMIDE 40 MG TABLET (FP) PO SCH (12:43)
[2017-02-13] MEDS ORDERED: POTASSIUM CHLORIDE TABS 20 MEQ TABLET.ER (FP) PO ONE (14:34)
--- NOTE | 2017-02-13 22:19 | EKG ---
Test Reason : Blood Pressure : / mmHG Vent. Rate : 113 BPM Atrial Rate : 122 BPM P-R Int : 000 ms QRS Dur : 072 ms QT Int : 356 ms P-R-T Axes : 000 -06 256 degrees QTc Int : 488 ms ATRIAL FIBRILLATION WITH RAPID VENTRICULAR RESPONSE WITH PREMATURE VENTRICULAR OR ABERRANTLY CONDUCTED COMPLEXES ABNORMAL ECG WHEN COMPARED WITH ECG OF 10-FEB-2017 12:41, PREMATURE VENTRICULAR COMPLEXES ARE SEEN T WAVE VARIATION Confirmed by DAVIE CHRISTENSEN, DAMIEN ([id number]) on 02/13/2017 10:19:00 PM Referred By: Gabino ALCALA Confirmed By:DAMIEN BRODERICK MD
--- NOTE | 2017-02-13 23:11 | EKG ---
Test Reason : Blood Pressure : / mmHG Vent. Rate : 153 BPM Atrial Rate : 131 BPM P-R Int : 000 ms QRS Dur : 068 ms QT Int : 284 ms P-R-T Axes : 000 000 257 degrees QTc Int : 453 ms ATRIAL FIBRILLATION WITH RAPID VENTRICULAR RESPONSE CANNOT RULE OUT SEPTAL INFARCT (CITED ON OR BEFORE 18-MAR-2016) T WAVE ABNORMALITY, CONSIDER INFEROLATERAL ISCHEMIA ABNORMAL ECG WHEN COMPARED WITH ECG OF 18-MAR-2016 21:28, VENT. RATE HAS INCREASED T WAVE VARIATION Confirmed by DAMIEN BRODERICK MD ([id number]) on 02/13/2017 11:11:19 PM Referred By: Confirmed By:DAMIEN BRODERICK MD
[2017-02-14] MEDS: LEVOTHYROXINE NA 50 MCG TABLET (FP) PO SCH (06:31)
[2017-02-14 07:16] LABS: ANION GAP 7 (8-16); CALCIUM 8.7 mg/dL (8.5-10.1); CO2 29 mmol/L (21-32); CREATININE 0.6 mg/dL (0.55-1.02); GLUCOSE,RANDOM 85 mg/dL (74-106)
--- NOTE | 2017-02-14 07:19 | PN ---
Physical Exam: SUBJECTIVE: Patient seen and examined by me this AM - Pt doing well, no major complaints. Informed about stress test today. - Denies any fever/chills, cough, SOB, palpitations, abdominal pain, N/V, peripheral edema - Very pleasant. Wishes to go home today after exam. Explained that given a relatively normal stress exam, can likely go home. - Persantine stress test today. Pending results, pt's daughter wishes to discuss plan for d/c or transfer later today. OBJECTIVE: Vital Signs Intake & Output 02/11/17 02/12/17 02/13/17 02/14/17 23:59 23:59 23:59 23:59 Intake Total 200 210 0 Balance 200 210 0 Weight 42.297 kg 40.597 kg 40.733 kg 40.914 kg Period Temp Pulse Resp BP Sys/Gandara Pulse Ox Last 24 Hr 97 F-98.6 F 79-92 18-20 100-129/44-72 96-97 GENERAL: The patient is awake, alert, and fully oriented, in no acute distress. [place]-speaking. Very pleasant. HEAD: NCAT EYES: PERRL, extraocular movements intact, sclera anicteric, conjunctiva clear. No ptosis. ENT: Ears normal, nares patent, oropharynx clear without exudates, moist mucous membranes. Poor dentition NECK: Trachea midline, supple. LUNGS: Breath sounds decreased at bases, no wheezes, no crackles, no accessory muscle use. HEART: Irregularly irregular rhythm, S1, S2. Unable to appreciate murmur, gallop or rub ABDOMEN: Soft, nontender, nondistended, normoactive bowel sounds, no guarding, no rebound. Upper EXTREMITIES: 2+ pulses, warm, well-perfused, no edema. Lower extremities: 2+ pulses, wwp. No edema. BL superficial varicose veins/ spider angiomas on anterior shins. NEUROLOGICAL: Cranial nerves II through XII grossly intact. Normal speech, gait not observed. PSYCH: Normal mood, normal affect. Skin: Warm to touch. CBC, BMP 02/10/17 13:00 02/14/17 06:30 Laboratory Last Values WBC 7.7 K/mm3 (4.0-10.0) 02/10/17 13:00 RBC 4.29 M/mm3 (3.60-5.2) 02/10/17 13:00 Hgb 12.9 GM/dL (10.7-15.3) 02/10/17 13:00 Hct 40.2 % (32.4-45.2) 02/10/17 13:00 MCV 93.7 fl (80-96) 02/10/17 13:00 MCH 30.1 pg (25.7-33.7) 02/10/17 13:00 MCHC 32.1 g/dl (32.0-36.0) 02/10/17 13:00 RDW 14.0 % (11.6-15.6) 02/10/17 13:00 Plt Count 206 K/MM3 (134-434) D 02/10/17 13:00 MPV 9.1 fl (7.5-11.1) 02/10/17 13:00 Neutrophils % 80.0 % (42.8-82.8) 02/10/17 13:00 Lymphocytes % 9.9 % (8-40) D 02/10/17 13:00 Monocytes % 9.5 % (3.8-10.2) 02/10/17 13:00 Eosinophils % 0.1 % (0-4.5) D 02/10/17 13:00 Basophils % 0.5 % (0-2.0) 02/10/17 13:00 PT with INR 18.40 SEC (9.98-11.88) H 02/10/17 13:00 INR 1.63 (0.82-1.09) H 02/10/17 13:00 Sodium 139 mmol/L (136-145) 02/14/17 06:30 Potassium 4.4 mmol/L (3.5-5.1) D 02/14/17 06:30 Chloride 103 mmol/L (98-107) 02/14/17 06:30 Carbon Dioxide 29 mmol/L (21-32) D 02/14/17 06:30 Anion Gap 7 (8-16) L 02/14/17 06:30 BUN 21 mg/dL (7-18) H D 02/14/17 06:30 Creatinine 0.6 mg/dL (0.55-1.02) D 02/14/17 06:30 Creat Clearance w eGFR > 60 (>60) 02/11/17 05:25 Random Glucose 85 mg/dL (74-106) 02/14/17 06:30 Calcium 8.7 mg/dL (8.5-10.1) 02/14/17 06:30 Magnesium 2.0 mg/dL (1.8-2.4) 02/11/17 05:25 Total Bilirubin 1.0 mg/dL (0.2-1.0) D 02/11/17 05:25 AST 65 U/L (15-37) H 02/11/17 05:25 ALT 118 U/L (12-78) H 02/11/17 05:25 Alkaline Phosphatase 139 U/L (45-117) H 02/11/17 05:25 Creatine Kinase 80 IU/L (26-192) 02/10/17 20:30 Troponin I < 0.02 ng/ml (0.00-0.05) 02/10/17 20:30 B-Natriuretic Peptide Cancelled 02/10/17 13:45 Total Protein 6.3 g/dl (6.4-8.2) L 02/11/17 05:25 Albumin 3.4 g/dl (3.4-5.0) 02/11/17 05:25 Triglycerides 78 mg/dL (35-160) 02/11/17 05:25 Cholesterol 132 mg/dL (50-200) D 02/11/17 05:25 Total LDL Cholesterol 60 mg/dL (5-100) 02/11/17 05:25 HDL Cholesterol 74 mg/dL (40-60) H D 02/11/17 05:25 TSH 4.55 uIU/ml (0.358-3.74) H D 02/11/17 05:25 Digoxin 0.5464 ng/ml (0.8-2.0) L 02/10/17 20:30 Active Medications Generic Name Dose Route Start Last Admin Trade Name Freq PRN Reason Stop Dose Admin Furosemide 40 mg 02/13/17 12:00 02/13/17 12:43 Lasix - PO 40 mg DAILY SIMON Administration Levothyroxine Sodium 50 mcg 02/10/17 16:30 02/14/17 06:31 Synthroid - PO 50 mcg DAILY@0700 SIMON Administration Lisinopril 2.5 mg 02/10/17 16:45 02/13/17 10:26 Prinivil PO 2.5 mg DAILY SIMON Administration Metoprolol Tartrate 5 mg 02/10/17 15:53 Lopressor Injection - IVPUSH Q4H PRN HYPERTENSION Polyethylene Glycol 17 gm 02/10/17 16:30 02/13/17 10:25 Miralax (For Daily Use) - PO Not Given DAILY SIMON Rivaroxaban 15 mg 02/11/17 10:00 02/13/17 10:26 Xarelto - PO 15 mg DAILY SIMON Administration No recent micro CXR 02/10 - The heart size is enlarged with pulmonary vascular congestion and bilateral pleural effusions. Echo 02/10 - LVEF reduced in setting of afib with RVR, moderate MR, moderate TR , RV pressure 40-50, LAE EKG 02/10 - Afib w/ RVR, rate of ~140 Prior echo in 2016 -> pulm htn, severe TR, EF ~67%, dilated atria CXR 02/13 - Impression: Improvement since prior study. ASSESSMENT/PLAN: 86 yo F w/ pmh CAD (prior stents, date unknown), afib (xarelto for AC) , HfPef and HLD sent from PCP for afib w/ rvr in the setting of 2 weeks of persistent fatigue and dizziness. #Afib w/ rvr - Aflutter w/ rate of 80-100s today. Afib on tele with rates 80- 100 today. - Rate control -> Toprol XL 50 mg PO. Held today for stress test. - Lopressor 5mg IV push for breakthrough tachycardia - Cardiac monitoring - Xarelto for long-term AC per cardiology recs - Cardiology following #Acute on chronic CHF (HfPef)- BNP 8200~ Echo LVEF reduced in setting of afib with RVR - Lasix to 40 PO daily - Repeat Echo when adequately rate controlled - Persantine stress test in AM today. If abnormal, will discuss if patient wants cardiac cath requiring transfer or d/c home. - Daily weights - Strict Is and Os - Outpt cardiology f/u - Cardiology recs appreciate #HTN - Continue home lisinopril. toprol 50mg PO daily - Vitals q4h. Monitor BP for hypotension #Transaminitis - LFTs downtrending today - Continue to trend LFTs #Hypothyroidism - TSH 4.55 02/11 - continue home synthroid 50 mcg PO #HLD - Triglycerides 78, total cholesterol 132, HDL 74, LDL 60 - Repeat lipid panel in 3 months as outpt - Will not initiate statin in setting of transaminitis #Hypokalemia - K 4.4 this AM. - Monitor BMP daily #Constipation - Miralax #PPX - Xarelto 15 mg PO daily - SCDs #FEN Fluids - PO fluids. Limit intake to <2L Electrolytes - Daily BMPs Nutrition - Cardiac/low-sodium diet. <2g sodium Dispo: D/c home or possible transfer for [facility] pending stress test results. Plan discussed with attending, Dr. Miles Steele, PGY1 Visit type - Emergency Visit Emergency Visit: Yes ED Registration Date: 02/10/17 Care time: The patient presented to the Emergency Department on the above date and was hospitalized for further evaluation of their emergent condition. - New Patient This patient is new to me today: No - Critical Care Critical Care patient: No
[2017-02-14] MEDS ORDERED: DEXTROSE 5% IVPB ONE (10:30)
[2017-02-14] MEDS ORDERED: WATER IVPB ONE (10:30)
[2017-02-14] MEDS ORDERED: DIPYRIDAMOLE STRESS TEST IVPB ONE (10:30)
--- NOTE | 2017-02-14 13:36 | DS ---
Physical Exam: SUBJECTIVE: Patient seen and examined by me this AM - Pt doing well, no major complaints. Informed about stress test today. - Denies any fever/chills, cough, SOB, palpitations, abdominal pain, N/V, peripheral edema - Very pleasant. Wishes to go home today after exam. Explained that given a relatively normal stress exam, can likely go home. - Persantine stress test today. Pending results, pt's daughter wishes to discuss plan for d/c or transfer later today. OBJECTIVE: Vital Signs Period Temp Pulse Resp BP Sys/Gandara Pulse Ox Last 24 Hr 97 F-98.2 F 79-92 14-20 100-129/44-82 97-97 PHYSICAL EXAM GENERAL: The patient is awake, alert, and fully oriented, in no acute distress. [place]-speaking. Very pleasant. HEAD: NCAT EYES: PERRL, extraocular movements intact, sclera anicteric, conjunctiva clear. No ptosis. ENT: Ears normal, nares patent, oropharynx clear without exudates, moist mucous membranes. Poor dentition NECK: Trachea midline, supple. LUNGS: Breath sounds decreased at bases, no wheezes, no crackles, no accessory muscle use. HEART: Irregularly irregular rhythm, S1, S2. Unable to appreciate murmur, gallop or rub ABDOMEN: Soft, nontender, nondistended, normoactive bowel sounds, no guarding, no rebound. Upper EXTREMITIES: 2+ pulses, warm, well-perfused, no edema. Lower extremities: 2+ pulses, wwp. No edema. BL superficial varicose veins/ spider angiomas on anterior shins. NEUROLOGICAL: Cranial nerves II through XII grossly intact. Normal speech, gait not observed. PSYCH: Normal mood, normal affect. Skin: Warm to touch. LABS Laboratory Results - last 24 hr 02/14/17 06:30 Sodium 139 Potassium 4.4 D Chloride 103 Carbon Dioxide 29 D Anion Gap 7 L BUN 21 H D Creatinine 0.6 D Random Glucose 85 Calcium 8.7 HOSPITAL COURSE: Date of Admission:02/10/17 Date of Discharge: 02/14/17 86 yo F w/ pmh CAD (prior stents, date unknown), afib (xarelto for AC) , HfPef and HLD sent from PCP for afib w/ rvr with HR in 140s in the setting of 2 weeks of persistent fatigue and dizziness. On presentation, pt tachycardic to 150s, given 50mg dose of cardizem with resolution of tachycardia to 90s, w/ occasional runs of afib w/ RVR and a BNP 8200~. Pt was started on Lopressor PO BID 25 mg and cardiology was consulted. Per cardiology team (Dr. Stanley/ Dr. Haddad), patient was started on Toprol XL 50mg daily for rate control, home digoxin was continued and given lasix 40mg BID IV for presumptive acute CHF exacerbation precipitated by afib w/ RVR. Pt improved on rate control tx, with HR in 80s-100s (afib/aflutter throughout admission) consistently and no further symptoms, able to ambulate well with no other complaints. She underwent a persantine stress test on morning of discharge to assess for demand ischemia, relatively unremarkable with minimal ischemic changes. Family and pt request minimal medical intervention with patient's health, however have been ambiguous about boundaries/guidelines for care. Hospital stay also notable for transaminitis (resolving on discharge) and TSH 4.55, w/ continuation of home synthroid 50mcg during stay. Pt instructed to follow-up with Dr. Andino in one week upon discharge for further management, will likely not require [facility] but this decision will be deferred to glue mounter operator. Discharged on xarelto 15mg for AC, Toprol XL 50mg for rate control, lasix 40mg PO and lisinopril 2.5mg for HTN. Instructed to stop taking digoxin. Imaging: CXR 02/10 - The heart size is enlarged with pulmonary vascular congestion and bilateral pleural effusions. Echo 02/10 - LVEF reduced in setting of afib with RVR, moderate MR, moderate TR , RV pressure 40-50, LAE EKG 02/10 - Afib w/ RVR, rate of ~140 Prior echo in 2016 -> pulm htn, severe TR, EF ~67%, dilated atria CXR 02/13 - Impression: Improvement since prior study. Micro: No recent micro Consults: Cardiology - Dr. Andino Recs on discharge: 1. Continue tele 2. On Toprol XL today. 3. Decrease Lasix to daily 4. Daily BMP to follow renal fxn and electrolytes 5. Xarelto 6. Repeat echo once rate is controlled. 7. Probably needs ischemic evaluation when rate controlled and euvolemic ( Persantine MIBI) 8. d/c digoxin 9. I.V. lasix not given due to hypotension - will change to PO Pt cleared for discharge given clinical improvement and rate control on Toprol XL. Persantine stress test with minimal ischemic changes, likely not requiring [facility], however decision will be deferred to Dr. Andino as outpt. Additionally , pt/family wish for limited medical intervention at this point and may forego further workup regardless. Minutes to complete discharge: 35 <Luisito Steele - Last Filed: 02/14/17 17:39> Physical Exam: SUBJECTIVE: Patient seen and examined Correction: Patient is being discharged on Xarelto 15mg po daily not bid. <Talya Aquino - Last Filed: 02/14/17 20:16> Discharge Summary Reason For Visit: A-FIB, DIZZINESS Current Active Problems Dizziness (Acute) Afib (Chronic) - Home Medications Comprehensive Discharge Medication List: Ambulatory Orders Lisinopril [Zestril] 2.5 mg PO DAILY 03/13/16 Rivaroxaban [Xarelto -] 15 mg PO BID 03/13/16 Digoxin [Lanoxin -] 0.125 mg PO DAILY tablet 03/22/16 Furosemide [Lasix -] 40 mg PO DAILY #30 tablet 02/13/17 Levothyroxine [Synthroid -] 50 mcg PO DAILY@0700 tablet 02/13/17 Metoprolol Succinate [Toprol Xl] 50 mg PO DAILY #30 tab.er.24h 02/13/17 <Luisito Steele - Last Filed: 02/14/17 17:39> Current Active Problems Acute on chronic systolic and diastolic heart failure, NYHA class 2 (Acute) CAD (coronary artery disease) (Acute) Dizziness (Acute) Afib (Chronic) - Home Medications Comprehensive Discharge Medication List: Ambulatory Orders Lisinopril [Zestril] 2.5 mg PO DAILY 03/13/16 Furosemide [Lasix -] 40 mg PO DAILY #30 tablet 02/13/17 Levothyroxine [Synthroid -] 50 mcg PO DAILY@0700 tablet 02/13/17 Metoprolol Succinate [Toprol Xl] 50 mg PO DAILY #30 tab.er.24h 02/13/17 Polyethylene Glycol 3350 [Miralax 119 gm Btl -] 17 gm PO DAILY bottle 02/14/17 Rivaroxaban [Xarelto -] 15 mg PO DAILY tablet 02/14/17 <MilesTalya - Last Filed: 02/14/17 20:16> Condition: Stable - Instructions Diet, Activity, Other Instructions: You sent to the hospital by Dr. Caro for a rapid heart rate. The following changes have been made to your medications: STOP taking Digoxin. CHANGES: Lasix (furosemide) is now 40mg 1 tablet every day and Toprol XL is now 50mg 1 tablet every day Continue: Xarelto 15mg 1 tablet twice a day Lisinopril 2.5mg 1 tablet every day Synthroid 50mcg 1 tablet every day Please follow-up with Dr. Caro in 1 week for post-hospital evaluation. Please advise your primary doctor to perform a lipid panel in 3 months to assess your cholesterol levels. Please follow-up with a glue mounter operator in one week. Contact information for Dr. Andino, the glue mounter operator who saw in the hospital has been provided for you. Please call his office to make an appointment. If you have chest pain, trouble breathing, fast heart rate or any new symptoms, please return to the hospital. Referrals: Mateo Parrish MD [Staff Physician] - Valerio Andino MD [Staff Physician] - 1 Week Disposition: HOME This patient is new to me today: No Emergency Visit: No Critical Care patient: No - Discharge Referral Referred to [facility] Med P.C.: No <Luisito Steele - Last Filed: 02/14/17 17:39>
--- NOTE | 2017-02-14 14:12 | PN ---
Progress Note, Physician Chief Complaint: Pt A&Ox3; no chest pain or dyspnea. Wants to go home. History of Present Illness: 86-year-old female (b. [place]), with history of Afib on xarelto, HLD, systolic CHF, CAD (moderate area of mild inferior wall ischemia on stress MIBI a few years ago)., UTIs, sent to ED by PMD for tachycardia. Was found to have heart rate in the 140s in office this am. Patient complain of dizziness and fatigue this a.m. that has since resolved. No chest pain or shortness of breath - Current Medication List Current Medications: Active Medications Furosemide (Lasix -) 40 mg PO DAILY [facility] Last Admin: 02/13/17 12:43 Dose: 40 mg Levothyroxine Sodium (Synthroid -) 50 mcg PO DAILY@0700 [facility] Last Admin: 02/14/17 06:31 Dose: 50 mcg Lisinopril (Prinivil) 2.5 mg PO DAILY [facility] Last Admin: 02/13/17 10:26 Dose: 2.5 mg Metoprolol Tartrate (Lopressor Injection -) 5 mg IVPUSH Q4H PRN PRN Reason: HYPERTENSION Polyethylene Glycol (Miralax (For Daily Use) -) 17 gm PO DAILY [facility] Last Admin: 02/13/17 10:25 Dose: Not Given Rivaroxaban (Xarelto -) 15 mg PO DAILY [facility] Last Admin: 02/13/17 10:26 Dose: 15 mg - Objective Vital Signs: Vital Signs Temperature 98.2 F 02/14/17 08:10 Pulse Rate 88 02/14/17 08:10 Respiratory Rate 14 02/14/17 08:10 Blood Pressure 122/82 02/14/17 08:10 O2 Sat by Pulse Oximetry (%) 97 02/14/17 08:00 Constitutional: Yes: Calm Eyes: Yes: WNL HENT: Yes: WNL Neck: Yes: WNL Cardiovascular: Yes: Pulse Irregular, S1 (varies in intensity) Respiratory: Yes: Regular Gastrointestinal: Yes: Soft ...Rectal Exam: Yes: Deferred Genitourinary: No: Anuria Breast(s): Yes: WNL Musculoskeletal: Yes: WNL Extremities: Yes: Cool Edema: No Peripheral Pulses WNL: Yes Integumentary: Yes: WNL Neurological: Yes: Alert, Oriented Psychiatric: Yes: WNL Labs: CBC, BMP 02/10/17 13:00 02/14/17 06:30 INR, PTT INR 1.63 (0.82-1.09) H 02/10/17 13:00 Abnormal Lab Results 02/14/17 06:30 Anion Gap 7 L BUN 21 H D Problem List - Problems (1) Acute on chronic systolic and diastolic heart failure, NYHA class 2 Code(s): I50.43 - ACUTE ON CHRONIC COMBINED SYSTOLIC AND DIASTOLIC HRT FAIL (2) CAD (coronary artery disease) Assessment/Plan: Hx moderate area of mildly intense inferior wall ischemia on stress MIBI a few years ago (pt refused coronary angiogram at that time); now with worseiing LVEF (?exacerbated by AF with RVR). For stress Persantine MIBI today. Addendum: stress MIBI showed moderate area of mildly intense inferobasal ischemia, with mildly reduced LVEF. From a cardiac standpoint, pt may be treated medically; f/u LVEF. Code(s): I25.10 - ATHSCL HEART DISEASE OF [place] CORONARY ARTERY W/O ANG PCTRS
[2017-02-14] MEDS: RIVAROXABAN 15 MG TABLET PO SCH (15:40)
[2017-02-14] MEDS: LISINOPRIL 5 MG TABLET (FP) PO SCH (15:40)
[2017-02-14] MEDS: FUROSEMIDE 40 MG TABLET (FP) PO SCH (15:40)
[2017-02-14] MEDS: POLYETHYLENE GLYCOL 3350 119 GM BTL PO SCH (15:41)
--- NOTE | 2017-02-14 19:23 | PN ---
Teaching Attending Note Name of Resident: Luisito Steele ATTENDING PHYSICIAN STATEMENT I saw and evaluated the patient. I reviewed the resident's note and discussed the case with the resident. I agree with the resident's findings and plan as documented. SUBJECTIVE: Patient is comfortable with no acute distress. OBJECTIVE: Vital Signs Temperature 98.4 F 02/14/17 14:00 Pulse Rate 99 H 02/14/17 14:00 Respiratory Rate 14 02/14/17 08:10 Blood Pressure 158/99 02/14/17 14:00 O2 Sat by Pulse Oximetry (%) 97 02/14/17 08:00 CBCD WBC 7.7 K/mm3 (4.0-10.0) 02/10/17 13:00 RBC 4.29 M/mm3 (3.60-5.2) 02/10/17 13:00 Hgb 12.9 GM/dL (10.7-15.3) 02/10/17 13:00 Hct 40.2 % (32.4-45.2) 02/10/17 13:00 MCV 93.7 fl (80-96) 02/10/17 13:00 MCHC 32.1 g/dl (32.0-36.0) 02/10/17 13:00 RDW 14.0 % (11.6-15.6) 02/10/17 13:00 Plt Count 206 K/MM3 (134-434) D 02/10/17 13:00 MPV 9.1 fl (7.5-11.1) 02/10/17 13:00 CMP Sodium 139 mmol/L (136-145) 02/14/17 06:30 Potassium 4.4 mmol/L (3.5-5.1) D 02/14/17 06:30 Chloride 103 mmol/L (98-107) 02/14/17 06:30 Carbon Dioxide 29 mmol/L (21-32) D 02/14/17 06:30 Anion Gap 7 (8-16) L 02/14/17 06:30 BUN 21 mg/dL (7-18) H D 02/14/17 06:30 Creatinine 0.6 mg/dL (0.55-1.02) D 02/14/17 06:30 Creat Clearance w eGFR > 60 (>60) 02/11/17 05:25 Random Glucose 85 mg/dL (74-106) 02/14/17 06:30 Calcium 8.7 mg/dL (8.5-10.1) 02/14/17 06:30 Total Bilirubin 1.0 mg/dL (0.2-1.0) D 02/11/17 05:25 AST 65 U/L (15-37) H 02/11/17 05:25 ALT 118 U/L (12-78) H 02/11/17 05:25 Alkaline Phosphatase 139 U/L (45-117) H 02/11/17 05:25 Total Protein 6.3 g/dl (6.4-8.2) L 02/11/17 05:25 Albumin 3.4 g/dl (3.4-5.0) 02/11/17 05:25 CARDIAC ENZYMES Creatine Kinase 80 IU/L (26-192) 02/10/17 20:30 Troponin I < 0.02 ng/ml (0.00-0.05) 02/10/17 20:30 Current Medications Generic Name Dose Route Start Last Admin Trade Name Freq PRN Reason Stop Dose Admin Furosemide 40 mg 02/13/17 12:00 02/14/17 15:40 Lasix - PO 40 mg DAILY SIMON Administration Levothyroxine Sodium 50 mcg 02/10/17 16:30 02/14/17 06:31 Synthroid - PO 50 mcg DAILY@0700 SIMON Administration Lisinopril 2.5 mg 02/10/17 16:45 02/14/17 15:40 Prinivil PO 2.5 mg DAILY SIMON Administration Metoprolol Tartrate 5 mg 02/10/17 15:53 Lopressor Injection - IVPUSH Q4H PRN HYPERTENSION Polyethylene Glycol 17 gm 02/10/17 16:30 02/14/17 15:41 Miralax (For Daily Use) - PO Not Given DAILY [facility] Rivaroxaban 15 mg 02/11/17 10:00 02/14/17 15:40 Xarelto - PO 15 mg DAILY SIMON Administration Home Medications Medication Instructions Recorded Lisinopril [Zestril] 2.5 mg PO DAILY 03/13/16 Furosemide [Lasix -] 40 mg PO DAILY #30 tablet 02/13/17 Levothyroxine [Synthroid -] 50 mcg PO DAILY@0700 tablet 11/27/17 Metoprolol Succinate [Toprol Xl] 50 mg PO DAILY #30 tab.er.24h 02/13/17 Polyethylene Glycol 3350 [Miralax 17 gm PO DAILY bottle 02/14/17 119 gm Btl -] Rivaroxaban [Xarelto -] 15 mg PO DAILY tablet 02/14/17 PE per resident's note ASSESSMENT AND PLAN: Patient is a 86 yo F with PMHx of CAD w/ stents, afib on xarelto, HLD was sent to the hospital by her doctor for a-fib w/ RVR. # Acute diastolic and systolic exacerbation of CHF on digoxin po 0.125mg daily given one dose of IV digoxin 0.25mg , continue with po Lasix 40mg daily at home. toprol xl,xalerto continue # Afib with rate controlled now in high 90s on Xarelto , Po Toprol XL 50mg changed from Lopressor 25mg q6h. s/p stress test today s/p Persantine MIBI. As per cardio note: moderate area of mildly intense inferior wall ischemia on stress MIBI a few years ago (pt refused coronary angiogram at that time); now with worseiing LVEF (?exacerbated by AF with RVR). For stress Persantine MIBI today. Addendum: stress MIBI showed moderate area of mildly intense inferobasal ischemia, with mildly reduced LVEF. From a cardiac standpoint, pt may be treated medically; f/u LVEF. 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 DVT Px: Xarelto
[2017-02-14 20:26] VITALS: BP 96/56; PULSE 88; TEMP 98.1
[2017-02-15] MEDS ORDERED: METOPROLOL SUCCINATE 50 MG TAB.SR.24H (FP) PO SCH (10:00)
== END 2017-02-14 21:38 | disposition home or self-care (01) | DRG 308 ==
LOC: JER 12:07 → JERBED 15:28 → J4W 16:34
PROVIDERS: ADMIT Internal Medicine; ATTEND Internal Medicine
DX: I48.0 Paroxysmal atrial fibrillation (principal); I50.41 Acute combined systolic (congestive) and diastolic (congestive) heart failure; I11.0 Hypertensive heart disease with heart failure; I25.10 Atherosclerotic heart disease of native coronary artery without angina pectoris; Z98.61 Coronary angioplasty status; E78.5 Hyperlipidemia, unspecified; R74.0 Nonspecific elevation of levels of transaminase and lactic acid dehydrogenase [LDH]; E03.9 Hypothyroidism, unspecified; E87.6 Hypokalemia; K59.00 Constipation, unspecified; I27.20 Pulmonary hypertension, unspecified
CPT/HCPCS: 36415; 71010-TC; 78452-TC; 80048; 80053; 80061; 80162; 82550; 83721; 83735; 83880; 84443; 84484; 85025; 85610; 93005; 93010; 93017; 93306-TC; 99283-25; A9502

== ENCOUNTER 2017-04-14 15:23 | Inpatient (IN) | payer OTHER ==
[2017-04-14] MEDS ORDERED: SODIUM CHLORIDE 500 ML IV STA (15:44)
[2017-04-14] MEDS ORDERED: METOPROLOL TARTRATE 5 MG/5 ML VIAL IVPUSH ONE ×2 (15:45→16:15)
[2017-04-14] MEDS ORDERED: METOPROLOL TARTRATE 5 MG/5 ML VIAL ONE ×2 (15:54→16:29)
[2017-04-14] MEDS ORDERED: METOPROLOL TARTRATE 25 MG TABLET (FP) ONE (15:54)
[2017-04-14 16:13] VITALS: BMI 21.9
[2017-04-14 16:25] LABS: BASO % 0.4 % (0-2.0); EOS % 0.1 % (0-4.5); HEMATOCRIT 41.5 % (32.4-45.2); HEMOGLOBIN 13.2 GM/dL (10.7-15.3); LYMPH % 10.4 % (8-40); MCH 28.3 pg (25.7-33.7); MCHC 31.8 g/dl (32.0-36.0); MEAN CELL VOLUME 89.1 fl (80-96); MEAN PLT VOLUME 9.9 fl (7.5-11.1); MONO % 9.7 % (3.8-10.2); NEUT % 79.4 % (42.8-82.8); PLATELET COUNT 252 K/MM3 (134-434); RBC 4.66 M/mm3 (3.60-5.2); RDW 17.1 % (11.6-15.6)
--- NOTE | 2017-04-14 16:28 | PDOC ---
History of Present Illness - General Chief Complaint: Palpitations Stated Complaint: ABNORMAL EKG Time Seen by Provider: 04/14/17 15:34 - History of Present Illness Initial Comments: 04/14/17 16:26 "Patient is an 86 year old female with a significant past medical history of CAD w/ stents, afib on xarelto, HFpEF (EF 67.8%, 2016) and HLD who presents to the ED for tachycardia. Patient was seen in cardiology clinic today and was found on EKG to be in afib with RVR with a rate of 160. She was subsequently sent to ER for management. Patient currently has no complaints or pain while in the ED. Denies ever having CP/SOB/palpitations. Denies F/C/N/V/D. Reports compliance with all of her medications. Allergies: None Social history: Lives with daughter. No smoking. No alcohol. No illicit drugs. Surgical history: None PMD: Dr Parrish. " Past History - Past Medical History Allergies/Adverse Reactions: Allergies Allergy/AdvReac Type Severity Reaction Status Date / Time No Known Allergies Allergy Verified 04/14/17 15:50 Home Medications: Ambulatory Orders Lisinopril [Zestril] 2.5 mg PO DAILY 03/13/16 Furosemide [Lasix -] 40 mg PO DAILY #30 tablet 02/13/17 Levothyroxine [Synthroid -] 50 mcg PO DAILY@0700 tablet 02/13/17 Metoprolol Succinate [Toprol Xl] 50 mg PO DAILY #30 tab.er.24h 02/13/17 Polyethylene Glycol 3350 [Miralax 119 gm Btl -] 17 gm PO DAILY bottle 02/14/17 Rivaroxaban [Xarelto -] 15 mg PO DAILY tablet 02/14/17 Cardiac Disorders: Yes (Atrial Fibrillation) COPD: No HTN: Yes Hypercholesterolemia: Yes - Surgical History Cardiac Surgery: Yes (1 stent 2009) - Immunization History Immunization Up to Date: Yes - Suicide/Smoking/Psychosocial Hx Smoking History: Never smoked Have you smoked in the past 12 months: No Number of Cigarettes Smoked Daily: 0 Cigars Per Day: 0 Information on smoking cessation initiated: No Hx Alcohol Use: No Drug/Substance Use Hx: No Substance Use Type: None Hx Substance Use Treatment: No Review of Systems - Review of Systems Comments:: 04/14/17 16:28 "GENERAL/CONSTITUTIONAL: No fever or chills. No weakness. HEAD, EYES, EARS, NOSE AND THROAT: No change in vision. No ear pain or discharge. No sore throat. CARDIOVASCULAR: No chest pain or shortness of breath. RESPIRATORY: No cough, wheezing, or hemoptysis. GASTROINTESTINAL: No nausea, vomiting, diarrhea or constipation. GENITOURINARY: No dysuria, frequency, or change in urination. MUSCULOSKELETAL: No joint or muscle swelling or pain. No neck or back pain. SKIN: No rash NEUROLOGIC: No headache, vertigo, loss of consciousness, or change in strength/ sensation. ENDOCRINE: No increased thirst. No abnormal weight change. HEMATOLOGIC/LYMPHATIC: No anemia, easy bleeding, or history of blood clots. ALLERGIC/IMMUNOLOGIC: No hives or skin allergy. " *Physical Exam - Vital Signs Last Vital Signs Temp Pulse Resp BP Pulse Ox 97.8 F 154 H 23 96/77 97 04/14/17 15:50 04/14/17 16:05 04/14/17 16:05 04/14/17 16:14 04/14/17 15:50 - Physical Exam Comments: 04/14/17 16:29 "GENERAL: Awake, alert, and fully oriented, in no acute distress HEAD: No signs of trauma EYES: PERRLA, EOMI, sclera anicteric, conjunctiva clear ENT: Auricles normal inspection, hearing grossly normal, nares patent, oropharynx clear without exudates. Moist mucosa NECK: Nontender, no stepoffs, Normal ROM, supple, no lymphadenopathy, JVD, or masses LUNGS: Breath sounds equal, clear to auscultation bilaterally. No wheezes, and no crackles HEART: irregularly irregular, tachycardic ABDOMEN: Soft, nontender, normoactive bowel sounds. No guarding, no rebound. No masses EXTREMITIES: +2 PE BLE, No clubbing or cyanosis. No cords, erythema, or tenderness NEUROLOGICAL: Cranial nerves II through XII intact. 5/5 strength and sensation in all extremities, Normal speech, normal gait SKIN: Warm, Dry, normal turgor, no rashes or lesions noted. " Heart Score/ECG Review - ECG Impressions Comment:: 04/14/17 16:29 Afib with RVR, no ILANA/STDs, TWI in lateral leads, Rate 164 ED Treatment Course - LABORATORY CBC & Chemistry Diagram: 04/14/17 16:03 04/14/17 16:05 - RADIOLOGY Radiology Studies Ordered: Category Date Time Status CHEST X-RAY PORTABLE* [RAD] Stat Radiology 04/14/17 15:43 Taken - Medications Given in the ED: ED Medications Discontinued Medications Generic Name Dose Route Start Last Admin Trade Name Paul PRN Reason Stop Dose Admin Sodium Chloride 500 mls @ 1,000 mls/hr 04/14/17 15:44 04/14/17 16:00 Normal Saline - IV 04/14/17 16:13 1,000 mls/hr ASDIR STA Administration Metoprolol Tartrate 5 mg 04/14/17 15:45 04/14/17 16:14 Lopressor Injection - IVPUSH 04/14/17 15:46 5 mg ONCE ONE Administration Medical Decision Making - Medical Decision Making 04/14/17 16:29 86 F presenting with afib w/ RVR, rate 160s. Pt reports compliance with medications. Does not appear to be volume depleted. Does not appear septic and is afebrile in ER. - Labs, CXR, UA - Rate control w/ metoprolol - Gentle IVF bolus - Cards consult (Sina) - Admit tele 04/14/17 16:[address] Andino, who states that pt has been off of her rate and rhythm control meds for some time. Reportedly still on Xarelto. Dr. Andino recommends giving dilt 15-20mg IV followed by dilt gtt, as well as amiodarone 150mg IV and re-starting her on amiodarone 400mg PO. 04/14/17 18:06 Pt reassessed s/p metoprolol 5mg IV x 2 and 50mg PO, followed by diltiazem 20mg IV. HR now 96, BP stable 96/60. Pt continues to be asymptomatic. Pt to be admitted to hospitalist. *DC/Admit/Observation/Transfer Diagnosis at time of Disposition: Atrial fibrillation with RVR - Discharge Dispostion Admit: Yes - Referrals - Patient Instructions - Post Discharge Activity - Attestations Physician Attestion: 04/14/17 18:53 I, Dr. Neeraj Markham MD, attest that this document has been prepared under my direction and personally reviewed by me in its entirety. I further attest, that it accurately reflects all work, treatment, procedures and medical decision -making performed by me.
[2017-04-14 16:37] LABS: INR 3.22 (0.82-1.09); PROTHROMBIN TIME (PATIENT) 36.4 SEC (9.98-11.88)
[2017-04-14] MEDS ORDERED: AMIODARONE HCL 150 MG/3 ML VIAL IVPUSH ONE (16:38)
[2017-04-14 16:40] LABS: ACTIVATED PTT 31.3 SECONDS (26.9-34.4)
[2017-04-14] MEDS ORDERED: dilTIAZem HCL 50 MG/10 ML - 10 ML VIAL IVPUSH ONE (16:43)
[2017-04-14] MEDS ORDERED: DILTIAZEM INJECTION 125 MG in DEXTROSE 5%-WATER - 100 ML IVPB SCH (16:45)
[2017-04-14] MEDS ORDERED: dilTIAZem HCL 125 MG/25 ML - 25 ML VIAL ONE (17:15)
[2017-04-14] MEDS ORDERED: AMIODARONE HCL INJECTION 150 MG in DEXTROSE 5%-WATER - 97 ML IVPB ONE (17:16)
--- NOTE | 2017-04-14 18:08 | CON.CARD ---
Consult Consult Specialty:: Cardiology Reason for Consultation:: chf af with rvr - History of Present Illness History of Present Illness: "Patient is an 86 year old female with a significant past medical history of CAD w/ stents, afib on xarelto, HFpEF (EF 67.8%, 2016) and HLD who presents to the ED for tachycardia. Patient was seen in cardiology clinic today and was found on EKG to be in afib with RVR with a rate of 160. She was subsequently sent to ER for management. Patient currently has no complaints or pain while in the ED. Denies ever having CP/SOB/palpitations. Denies F/C/N/V/D. Reports compliance with all of her medications. Patient presented to the office Off amiodarone and with reduced dose of bb. 2 weeks h/o of decompensated chf rx with increased dose of lasix. yesterday vissiting nurse noted pulse 160's, ems called, confirmed, patient refused admission to hospital yesterday. Today in my office she presented asymptomatic with +3 lower extremity edema and AF with RVR 167 bpm. PMH ASHD s/p PTCA SANNA mLAD PTCA D2 2007 Atrial fibrillation HHD HTN Positive MIBI in the past refused repeated c. cath - History Source History Provided By: Patient, Family Member, Medical Record - Past Medical History Cardio/Vascular: Yes: AFIB, CAD, HTN - Alcohol/Substance Use Hx Alcohol Use: No - Smoking History Smoking history: Never smoked Have you smoked in the past 12 months: No Aproximately how many cigarettes per day: 0 Home Medications - Allergies Allergies/Adverse Reactions: Allergies Allergy/AdvReac Type Severity Reaction Status Date / Time No Known Allergies Allergy Verified 04/14/17 15:50 - Home Medications Home Medications: Ambulatory Orders Lisinopril [Zestril] 2.5 mg PO DAILY 03/13/16 Furosemide [Lasix -] 40 mg PO DAILY #30 tablet 02/13/17 Levothyroxine [Synthroid -] 50 mcg PO DAILY@0700 tablet 02/13/17 Metoprolol Succinate [Toprol Xl] 50 mg PO DAILY #30 tab.er.24h 02/13/17 Polyethylene Glycol 3350 [Miralax 119 gm Btl -] 17 gm PO DAILY bottle 02/14/17 Rivaroxaban [Xarelto -] 15 mg PO DAILY tablet 02/14/17 Review of Systems - Review of Systems Constitutional: reports: No Symptoms Eyes: reports: No Symptoms HENT: reports: No Symptoms Neck: reports: No Symptoms Cardiovascular: reports: No Symptoms Gastrointestinal: reports: No Symptoms Genitourinary: reports: No Symptoms Breasts: reports: No Symptoms Reported Musculoskeletal: reports: No Symptoms Integumentary: reports: No Symptoms Neurological: reports: No Symptoms Endocrine: reports: No Symptoms Hematology/Lymphatic: reports: No Symptoms Psychiatric: reports: No Symptoms Vital Signs: Vital Signs Temperature 97.8 F 04/14/17 15:50 Pulse Rate 144 H 04/14/17 17:32 Respiratory Rate 23 04/14/17 16:05 Blood Pressure 113/63 04/14/17 17:32 O2 Sat by Pulse Oximetry (%) 97 04/14/17 15:50 Constitutional: Yes: Well Nourished, No Distress, Calm Eyes: Yes: WNL, Conjunctiva Clear, EOM Intact HENT: Yes: WNL, Atraumatic, Normocephalic Neck: Yes: WNL, Supple, Trachea Midline Respiratory: Yes: WNL, Regular, CTA Bilaterally Gastrointestinal: Yes: WNL, Normal Bowel Sounds Renal/: Yes: WNL Cardiovascular: Yes: Tachycardia, Pulse Irregular Heart Sounds: Yes: S1, S2 Musculoskeletal: Yes: WNL Extremities: Yes: WNL Edema: Yes Edema: LLE: 3+, RLE: 3+ Integumentary: Yes: WNL Neurological: Yes: WNL, Alert, Oriented ...Motor Strength: WNL Psychiatric: Yes: WNL, Alert, Oriented - Other Data Labs, Other Data: CBC, BMP 04/14/17 16:03 04/14/17 16:05 INR, PTT INR 3.22 (0.82-1.09) H D 04/14/17 16:05 Troponin, BNP 04/14/17 16:05 Troponin I Cancelled B-Natriuretic Peptide Cancelled Troponin, BNP 04/14/17 16:05 Troponin I Cancelled B-Natriuretic Peptide Cancelled Imaging - Results Chest X-ray: Image Reviewed (chf mild b pleural effusion) EKG: Image Reviewed (af rvr [address] depression) Problem List - Problems (1) Acute on chronic systolic and diastolic heart failure, NYHA class 2 Code(s): I50.43 - ACUTE ON CHRONIC COMBINED SYSTOLIC AND DIASTOLIC HRT FAIL (2) CAD (coronary artery disease) Code(s): I25.10 - ATHSCL HEART DISEASE OF [place] CORONARY ARTERY W/O ANG PCTRS (3) Dizziness Code(s): R42 - DIZZINESS AND GIDDINESS (4) Afib Code(s): I48.91 - UNSPECIFIED ATRIAL FIBRILLATION (5) CHF (congestive heart failure) Code(s): I50.9 - HEART FAILURE, UNSPECIFIED Assessment/Plan For 427.31: ATRIAL FIBRILLATION: The importance of chronic anticoagulation discussed with the patient. The risk of CVA discussed. The importance of chronic anticoagulation discussed with the patient. Cont xarelto. Admit to [facility] for rate control and restarting Amiodarone. MIXED HYPERLIPIDEMIA: I would recommend obtaining fasting lipid profile to reassure that LDL is below 70 mg/dl. If LDL is above 70 mg/dl I would recommend pharmacological treatment. Moderate size mild intensity reversible inferior wall perfusion defect c/w ischemia. Positive MIBI stress test for inducible ischemia. I would recommend cardiac catheterization for further evaluation. Patient is currently reluctant to have cardiac catheterization. He understands risks, which include but are not limited to , progression of ASHD and [place]. Patient was screened for unhealthy alcohol use using a systemic screening method. Patient was screened for tobacco use and unhealthy alcohol use, using a systemic screening method. Cessation counseling intervention was provided for tobacco and unhealthy alcohol users. Patient was screened for unhealthy alcohol use using a systemic screening method. Decompensated chf will be manage in the hospital with IV Lasix Amiodarone 150 mg IV given , will start po loading 400 mg TID. IV cardizem for rate control increase dose of BB - Lopressor 100 BID diastolic chf acutely decompensated IV Lasix 20 mg cont AC with Xarelto d/w dr. Markham and Jenise
--- NOTE | 2017-04-14 18:37 | PN ---
Teaching Attending Note Name of Resident: Luisito Steele ATTENDING PHYSICIAN STATEMENT I saw and evaluated the patient. I reviewed the resident's note and discussed the case with the resident. I agree with the resident's findings and plan as documented. pt is a poor historian SUBJECTIVE:86yo F with PMH AFib on xarelto, CAD s/p stents, Systolic CHF, dyslipidemia went to her [employer] office for general check up. there she was found to be in afib with HR of 160. She was sent to the ER for further management. her only complaint is non productive cough which she can not say for how long. deneis CP, palpitations, N/V/C/D, fever, chills, night sweats. staes she has been eating well. claims medication compliance OBJECTIVE: Last Vital Signs Temp Pulse Resp BP Pulse Ox 97.8 F 90 18 94/66 98 04/14/17 15:50 04/14/17 18:00 04/14/17 18:00 04/14/17 18:00 04/14/17 18:00 General NAD COEUR [place]'ALENE CV S1 S2 irregular Lungs mild crackles L base, decreased breath sounds R base ABdomen soft NT/ND Extremities trace pitting edema. +varicose veins B/L LE. ASSESSMENT AND PLAN: 86yo F with PMH AFib on xarelto, CAD s/p stents, hypothyroid, Systolic CHF, dyslipidemia sent to the ER by her horse racing analyst for afib with RVR 1. Afib with RVR- Tele admission. HR 160 on arrival. after diltiazem 20mg IV, Metoprolol 5mg IV x2 and 50mg po is now controlled at 90. high concern that she is not complaint with medications or gets confused taking them vs possible viral URI with non productive cough. ER spoke with horse racing analyst. recommend to start diltiazem ggt and amio. may need cardiac cath, as per cardio recommendations. trend cardiac enzymes 2. Acute pulmonary edema- due to rapid afib. received lasix 20mg IVP in the ER. would hold further diuresis and continue as needed once HR is better control 3. Elevated INR- was on coumadin in the past. states she stopped 2 years ago. can not obtain if she has old bottles lying around the house and was taken accidentally. repeat labs for possible lab error. would hold xarelto until repeat lab 4. Non productive cough- could be due to pulmonary congestion vs viral infection. she is afebrile with no leukocytosis. no infiltrate seen on EKG. would hold abx at this time 5. Hypothyroid- repeat TSH. cont LT4 6. DVT ppx- elevated INR
[2017-04-14 18:44] LABS: N-TERMINAL BNP 11371.59 pg/ml (5-450)
[2017-04-14 18:48] LABS: URINE APPEARANCE CLEAR; URINE BILIRUBIN NEGATIVE (NEGATIVE); URINE BLOOD NEGATIVE (NEGATIVE); URINE COLOR YELLOW; URINE GLUCOSE (UA) NEGATIVE (NEGATIVE); URINE KETONE NEGATIVE (NEGATIVE); URINE NITRITE NEGATIVE (NEGATIVE); URINE PROTEIN NEGATIVE (NEGATIVE)
[2017-04-14 18:54] LABS: URINE LEUK ESTERASE 2+ (NEGATIVE)
[2017-04-14 19:03] LABS: EPI CELLS RARE /HPF (FEW); URINE BACTERIA FEW /hpf (NONE SEEN); URINE HYALINE CAST 19 /lpf; URINE MUCUS RARE
--- NOTE | 2017-04-14 19:24 | HP ---
CHIEF COMPLAINT: Afib w/ RVR at cardiac clinic PCP: Dr. Caro HISTORY OF PRESENT ILLNESS: 86 yo F w/ h/o CAD w/ stents, afib on xarelto, HFpEF (EF 67.8%, 2016) and HLD who was sent from her prosthetic dentist's office to ED due to office EKG notable for Afib with RVR w/ rate in 160s. Pt was seen for routine f/u visit with Dr. Andino in clinic today, received EKG notable for above noted rate. Pt sent to ED for further management. Pt endorses good compliance with home medications. Denies CP, SOB, PVD, Orthopnea, SPAULDING or palpitations. Denies fever/chills, n/v, ab pain, constipation, diarrhea. Endorses chronic BL LE edema and dry cough. Pt admitted in 01/2017 last year for similar presentation. ER course was notable for: (1)CXR w/ BL congestion (2)EKG w afib w/ RVR (3)BNP 00165 (4) Pt given amio 150mg, dilt 20mg, lopressor 5mg x2, toprol XL 50mg PO Recent Travel: None PAST MEDICAL HISTORY: Afib CAD HTN HfPef HLD PAST SURGICAL HISTORY: Cardiac Stents (2009) Social History: Smoking: Denies Alcohol: Denies Drugs: Denies Family History: Noncontributory Allergies No Known Allergies Allergy (Verified 04/14/17 15:50) HOME MEDICATIONS: Home Medications Medication Instructions Recorded Lisinopril [Zestril] 2.5 mg PO DAILY 03/13/16 Furosemide [Lasix -] 40 mg PO DAILY #30 tablet 02/13/17 Levothyroxine [Synthroid -] 50 mcg PO DAILY@0700 tablet 02/13/17 Metoprolol Succinate [Toprol Xl] 50 mg PO DAILY #30 tab.er.24h 02/13/17 Polyethylene Glycol 3350 [Miralax 17 gm PO DAILY bottle 02/14/17 119 gm Btl -] Rivaroxaban [Xarelto -] 15 mg PO DAILY tablet 02/14/17 REVIEW OF SYSTEMS CONSTITUTIONAL: Absent: fever, chills, diaphoresis, generalized weakness, malaise, loss of appetite, weight change HEENT: Absent: rhinorrhea, nasal congestion, throat pain, throat swelling, difficulty swallowing, mouth swelling, ear pain, eye pain, visual changes CARDIOVASCULAR: peripheral edema BL in legs Absent: chest pain, syncope, palpitations, irregular heart rate, lightheadedness , RESPIRATORY: cough, Absent: shortness of breath, dyspnea with exertion, orthopnea, wheezing, stridor, hemoptysis GASTROINTESTINAL: Absent: abdominal pain, abdominal distension, nausea, vomiting, diarrhea, constipation, melena, hematochezia GENITOURINARY: Absent: dysuria, frequency, urgency, hesitancy, hematuria, flank pain, genital pain MUSCULOSKELETAL: Absent: myalgia, arthralgia, joint swelling, back pain, neck pain SKIN: Absent: rash, itching, pallor HEMATOLOGIC/IMMUNOLOGIC: Absent: easy bleeding, easy bruising, lymphadenopathy, frequent infections ENDOCRINE: Absent: unexplained weight gain, unexplained weight loss, heat intolerance, cold intolerance NEUROLOGIC: Absent: headache, focal weakness or paresthesias, dizziness, unsteady gait, seizure, mental status changes, bladder or bowel incontinence PSYCHIATRIC: Absent: anxiety, depression, suicidal or homicidal ideation, hallucinations. PHYSICAL EXAMINATION Vital Signs - 24 hr Intake & Output 04/11/17 04/12/17 04/13/17 04/14/17 23:59 23:59 23:59 23:59 Weight 44.452 kg 04/14/17 04/14/17 04/14/17 15:50 16:05 16:14 Temperature 97.8 F Pulse Rate 160 H Pulse Rate [ 154 H Apical] Respiratory 20 23 Rate Blood Pressure 90/74 96/77 Blood Pressure 96/77 [Right] O2 Sat by Pulse 97 Oximetry (%) 04/14/17 04/14/17 04/14/17 16:36 17:32 18:00 Temperature Pulse Rate Pulse Rate [ 144 H 90 Apical] Respiratory 18 Rate Blood Pressure 113/63 Blood Pressure 113/63 94/66 [Right] O2 Sat by Pulse 98 Oximetry (%) GENERAL: Elderly, sami speaking woman in NAD. Awake, alert, and fully oriented. HEAD: Normal with no signs of trauma. EYES: Pupils equal, round and reactive to light, extraocular movements intact, sclera anicteric, conjunctiva clear. No lid lag. EARS, NOSE, THROAT: Ears normal, nares patent, oropharynx clear without exudates. Moist mucous membranes. NECK: Normal range of motion, supple without lymphadenopathy, JVD, or masses. LUNGS: Decreased breath sounds at base, trace bibasilar crackles. No wheezes, and no crackles. No accessory muscle use. HEART: Irregularly Irregular, normal S1 and S2 without murmur, rub or gallop. ABDOMEN: Soft, nontender, not distended, normoactive bowel sounds, no guarding, no rebound, no masses. No hepatomegaly or splenomegaly. MUSCULOSKELETAL: Normal range of motion at all joints. No bony deformities or tenderness. No CVA tenderness. UPPER EXTREMITIES: 2+ pulses, warm, well-perfused. No cyanosis. No clubbing. No peripheral edema. LOWER EXTREMITIES: 2+ pulses, warm, well-perfused. No calf tenderness. BL superficial varicose veins/spider angiomas on anterior shins. 1+ pitting edema BL to knees. NEUROLOGICAL: Cranial nerves II-XII intact. Normal speech. Normal gait. 5/5 strength in all extremities. Sensation to light touch preserved diffusely PSYCHIATRIC: Cooperative. Good eye contact. Appropriate mood and affect. SKIN: Warm, dry, normal turgor, no rashes or lesions noted, normal capillary refill. Laboratory Results - last 24 hr CBC, BMP 04/14/17 16:03 04/14/17 18:19 04/14/17 04/14/17 04/14/17 16:03 16:05 16:05 WBC 6.0 RBC 4.66 Hgb 13.2 Hct 41.5 MCV 89.1 MCH 28.3 MCHC 31.8 L RDW 17.1 H D Plt Count 252 D MPV 9.9 Neutrophils % 79.4 Lymphocytes % 10.4 Monocytes % 9.7 Eosinophils % 0.1 Basophils % 0.4 PT with INR 36.40 H INR 3.22 H D PTT (Actin FS) 31.3 Sodium Potassium Chloride Carbon Dioxide Anion Gap BUN Creatinine Creat Clearance w eGFR Random Glucose Calcium Magnesium Total Bilirubin AST ALT Alkaline Phosphatase Creatine Kinase Cancelled Troponin I Cancelled B-Natriuretic Peptide Cancelled Total Protein Albumin TSH Urine Color Urine Appearance Urine pH Ur Specific [place] Urine Protein Urine Glucose (UA) Urine Ketones Urine Blood Urine Nitrite Urine Bilirubin Urine Urobilinogen Ur Leukocyte Esterase Urine WBC (Auto) Urine RBC (Auto) Ur Epithelial Cells Urine Bacteria Hyaline Casts Urine Mucus Blood Type Antibody Screen 04/14/17 04/14/17 04/14/17 16:05 16:05 16:05 WBC RBC Hgb Hct MCV MCH MCHC RDW Plt Count MPV Neutrophils % Lymphocytes % Monocytes % Eosinophils % Basophils % PT with INR INR PTT (Actin FS) Sodium Cancelled Potassium Cancelled Chloride Cancelled Carbon Dioxide Cancelled Anion Gap Cancelled BUN Cancelled Creatinine Cancelled Creat Clearance w eGFR Cancelled Random Glucose Cancelled Calcium Cancelled Magnesium Cancelled Total Bilirubin Cancelled AST Cancelled ALT Cancelled Alkaline Phosphatase Cancelled Creatine Kinase Troponin I B-Natriuretic Peptide Total Protein Cancelled Albumin Cancelled TSH Urine Color Urine Appearance Urine pH Ur Specific [place] Urine Protein Urine Glucose (UA) Urine Ketones Urine Blood Urine Nitrite Urine Bilirubin Urine Urobilinogen Ur Leukocyte Esterase Urine WBC (Auto) Urine RBC (Auto) Ur Epithelial Cells Urine Bacteria Hyaline Casts Urine Mucus Blood Type Cancelled Antibody Screen Cancelled 04/14/17 04/14/17 04/14/17 16:05 18:19 18:19 WBC RBC Hgb Hct MCV MCH MCHC RDW Plt Count MPV Neutrophils % Lymphocytes % Monocytes % Eosinophils % Basophils % PT with INR INR PTT (Actin FS) Sodium Potassium Chloride Carbon Dioxide Anion Gap BUN Creatinine Creat Clearance w eGFR Random Glucose Calcium Magnesium Total Bilirubin AST ALT Alkaline Phosphatase Creatine Kinase 82 Troponin I < 0.02 B-Natriuretic Peptide 84048.59 H Total Protein Albumin TSH Cancelled Urine Color Yellow Urine Appearance Clear Urine pH 6.0 Ur Specific [place] 1.011 Urine Protein Negative Urine Glucose (UA) Negative Urine Ketones Negative Urine Blood Negative Urine Nitrite Negative Urine Bilirubin Negative Urine Urobilinogen 2.0 H Ur Leukocyte Esterase 2+ H Urine WBC (Auto) 4 Urine RBC (Auto) <1 Ur Epithelial Cells Rare Urine Bacteria Few Hyaline Casts 19 Urine Mucus Rare Blood Type Antibody Screen 04/14/17 18:19 WBC RBC Hgb Hct MCV MCH MCHC RDW Plt Count MPV Neutrophils % Lymphocytes % Monocytes % Eosinophils % Basophils % PT with INR INR PTT (Actin FS) Sodium Potassium Chloride Carbon Dioxide Anion Gap BUN Creatinine Creat Clearance w eGFR Random Glucose Calcium Magnesium Total Bilirubin AST ALT Alkaline Phosphatase Creatine Kinase Troponin I B-Natriuretic Peptide Total Protein Albumin TSH 5.37 H Urine Color Urine Appearance Urine pH Ur Specific [place] Urine Protein Urine Glucose (UA) Urine Ketones Urine Blood Urine Nitrite Urine Bilirubin Urine Urobilinogen Ur Leukocyte Esterase Urine WBC (Auto) Urine RBC (Auto) Ur Epithelial Cells Urine Bacteria Hyaline Casts Urine Mucus Blood Type Antibody Screen No micro EKG 04/14 - Afib w/ RVR, no ST changes, TWI in lateral leads, Rate 164 CXR 04/14 - Cardiomegaly, mild congestion, BL pleural effusions Prior echo in 2015 -> pulm htn, severe TR, EF ~67%, dilated atria Echo 02/10 - LVEF reduced in setting of afib with RVR, moderate MR, moderate TR , RV pressure 40-50, LAE Persantine stress test 04/16 - relatively unremarkable with minimal ischemic changes. 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 #Afib w/ RVR - Amiodarone 150mg IV, Dilt 20mg IV, Lopressor 5mg IV in ED; better controlled with rate in 90s - Cardiology Consulted, recs appreciated - Dilt gtt - Amiodarone 400mg PO TID - AC w/ xarelto per cardiology - cardiac monitoring - Repeat EKG in AM #CHF - ECHO 02/10 w/ reduced LVEF in setting of afib, systolic function severely reduced - lasix IV 20mg - Lopressor 100mg BID, increased from 50mg Toprol XL - Strict Is and Os - Daily Weights #Elevated INR - on coumadin in past, no hx of liver dz; - Repeat labs due to possible lab error - Trend CMP #HTN -c/w home lisinopril #Hypothyroidism - TSH 5.37 - c/w home synthroid #HLD -fasting lipid profile PPX C/w home xarelto FEN PO fluids, <2L Daily BMPs Cardiac diet Plan discussed with attending, Dr. Carlos A Steele, PGY1 Visit type - Emergency Visit Emergency Visit: Yes ED Registration Date: 04/14/17 Care time: The patient presented to the Emergency Department on the above date and was hospitalized for further evaluation of their emergent condition. - New Patient This patient is new to me today: Yes Date on this admission: 04/15/17 - Critical Care Critical Care patient: No
[2017-04-14 19:46] LABS: ALBUMIN 2.9 g/dl (3.4-5.0); ALK PHOS 127 U/L (45-117); ANION GAP 11 (8-16); BLOOD UREA NITROGEN 35 mg/dL (7-18); CALCIUM 7.5 mg/dL (8.5-10.1); CHLORIDE 105 mmol/L (98-107); CO2 24 mmol/L (21-32); CREATININE 1.3 mg/dL (0.55-1.02); GLUCOSE,RANDOM 103 mg/dL (74-106); POTASSIUM 4.1 mmol/L (3.5-5.1); SGOT/AST 29 U/L (15-37); SGPT/ALT 38 U/L (12-78); SODIUM 140 mmol/L (136-145); TOT PROT 5.7 g/dl (6.4-8.2)
[2017-04-14 23:01] LABS: INR 2.55 (0.82-1.09); PROTHROMBIN TIME (PATIENT) 28.8 SEC (9.98-11.88)
[2017-04-14 23:03] LABS: ACTIVATED PTT 31.2 SECONDS (26.9-34.4)
[2017-04-14] MEDS: AMIODARONE HCL 200 MG TABLET (FP) PO SCH (23:11)
[2017-04-14] MEDS: METOPROLOL TARTRATE 50 MG TABLET (FP) PO SCH (23:11)
[2017-04-15] MEDS ORDERED: METOPROLOL TARTRATE 50 MG TABLET (FP) PO ONE (01:45)
[2017-04-15] MEDS: AMIODARONE HCL 200 MG TABLET (FP) PO SCH ×3 (05:08→21:16)
[2017-04-15] MEDS: LEVOTHYROXINE NA 75 MCG TABLET (FP) PO SCH (06:28)
[2017-04-15 08:02] LABS: HEMATOCRIT 39.5 % (32.4-45.2); HEMOGLOBIN 12.2 GM/dL (10.7-15.3); MCH 27.6 pg (25.7-33.7); MCHC 30.9 g/dl (32.0-36.0); MEAN CELL VOLUME 89.5 fl (80-96); MEAN PLT VOLUME 9.4 fl (7.5-11.1); PLATELET COUNT 181 K/MM3 (134-434); RBC 4.42 M/mm3 (3.60-5.2); RDW 17.1 % (11.6-15.6); WHITE BLOOD COUNT 5.4 K/mm3 (4.0-10.0)
[2017-04-15 08:25] LABS: ALBUMIN 2.7 g/dl (3.4-5.0); CALCIUM 7.7 mg/dL (8.5-10.1); CHLORIDE 106 mmol/L (98-107); POTASSIUM 3.8 mmol/L (3.5-5.1); SGOT/AST 28 U/L (15-37); SODIUM 142 mmol/L (136-145)
[2017-04-15 08:29] LABS: ALK PHOS 122 U/L (45-117); ANION GAP 10 (8-16); BILIRUBIN,TOTAL 1.7 mg/dL (0.2-1.0); BLOOD UREA NITROGEN 32 mg/dL (7-18); CO2 26 mmol/L (21-32); CREATININE 1.2 mg/dL (0.55-1.02); GLUCOSE,RANDOM 87 mg/dL (74-106); MAGNESIUM 2.3 mg/dL (1.8-2.4); SGPT/ALT 39 U/L (12-78); TOT PROT 5.3 g/dl (6.4-8.2)
[2017-04-15] MEDS ORDERED: AMIODARONE HCL INJECTION 150 MG in DEXTROSE 5%-WATER - 100 ML IVPB ONE (08:30)
[2017-04-15] MEDS: AMIODARONE HCL 150 MG/3 ML VIAL IVPUSH ONE ×2 (08:39→08:48)
[2017-04-15 08:40] LABS: INR 2.07 (0.82-1.09); PROTHROMBIN TIME (PATIENT) 23.4 SEC (9.98-11.88)
[2017-04-15] MEDS ORDERED: RIVAROXABAN 15 MG TABLET PO SCH (10:00)
--- NOTE | 2017-04-15 10:20 | PN ---
Progress Note, Physician History of Present Illness: seen and examined today in [facility]. no overnight events. no new complaints. - Current Medication List Current Medications: Active Medications Amiodarone HCl (Cordarone -) 400 mg PO TID [facility] Last Admin: 04/15/17 05:08 Dose: 400 mg Furosemide (Lasix Injection -) 20 mg IVPUSH ONCE ONE Stop: 04/15/17 18:16 Diltiazem HCl 125 mg/ Dextrose 125 mls @ 5 mls/hr IVPB TITR SIMON; 5 MG/HR PRN Reason: Protocol Last Admin: 04/14/17 19:10 Dose: Not Given Levothyroxine Sodium (Synthroid -) 75 mcg PO DAILY@0700 [facility] Last Admin: 04/15/17 06:28 Dose: 75 mcg Lisinopril (Prinivil) 2.5 mg PO DAILY [facility] Metoprolol Tartrate (Lopressor -) 100 mg PO BID [facility] Last Admin: 04/14/17 23:11 Dose: 100 mg Rivaroxaban (Xarelto -) 10 mg PO DAILY [facility] - Objective Vital Signs: Vital Signs Temperature 97.5 F L 04/15/17 04:00 Pulse Rate 129 H 04/15/17 04:00 Respiratory Rate 16 04/15/17 04:00 Blood Pressure 90/55 04/15/17 04:00 O2 Sat by Pulse Oximetry (%) 95 04/14/17 23:00 Constitutional: Yes: No Distress, Calm Eyes: Yes: Conjunctiva Clear, EOM Intact, PERRL HENT: Yes: Atraumatic, Normocephalic Neck: Yes: Supple, Trachea Midline Cardiovascular: Yes: Tachycardia, Pulse Irregular, S1, S2. No: Regular Rate and Rhythm, Bradycardia, Bruit, JVD, Gallop, Murmur, Rub, S3, S4, Varicosities Respiratory: Yes: Regular, Diminished. No: Rales, Rhonchi, SOB, Wheezes Gastrointestinal: Yes: Normal Bowel Sounds, Soft. No: Distention, Tenderness Extremities: Yes: WNL Edema: Yes Edema: LLE: 2+, RLE: 2+ Peripheral Pulses: Left Doralis Pedis: 2+, Right Dorsalis Pedis: 2+ Neurological: Yes: Alert, Oriented Psychiatric: Yes: Alert, Oriented Labs: CBC, BMP 04/15/17 05:05 04/15/17 05:05 INR, PTT INR 2.07 (0.82-1.09) H 04/15/17 05:05 - ....Imaging Chest X-ray: Report Reviewed, Image Reviewed EKG: Report Reviewed, Image Reviewed Other: Report Reviewed, Image Reviewed (tele-Afib with RVR) Assessment/Plan Afib with RVR-HR not controlled -Amiodarone IV was not given yesterday -give Amiodarone 150mg IV now and cont Amiodarone po loading with 400mg tid for now -cont Lopressor and cardizem gtt for now -if needed for BP room to increase rate control can hold Lisinopril -cont Xarelto Acute on chronic diastolic CHF-maybe secondary to AFib with RVR -cont IV Lasix for now as BP tolerates -HR control as above CAD-abnl stress test in the past, refused cath -being considered further for cardiac cath
--- NOTE | 2017-04-15 10:23 | PN ---
Progress Note (short form) - Note Progress Note: asymptomatic. does not feel her heart palpitation. denies CP, SOB, fever, chills , N/V/C/D Current Medications Generic Name Dose Route Start Last Admin Trade Name Paul PRN Reason Stop Dose Admin Amiodarone HCl 400 mg 04/14/17 22:00 04/15/17 05:08 Cordarone - PO 400 mg TID SIMON Administration Furosemide 20 mg 04/15/17 18:15 Lasix Injection - IVPUSH 04/15/17 18:16 ONCE ONE Diltiazem HCl 125 mg/ Dextrose 125 mls @ 5 mls/hr 04/14/17 16:45 04/14/17 19: 10 IVPB Not Given TITR SIMON Protocol 5 MG/HR Levothyroxine Sodium 75 mcg 04/15/17 07:00 04/15/17 06:28 Synthroid - PO 75 mcg DAILY@0700 SIMON Administration Lisinopril 2.5 mg 04/15/17 10:00 Prinivil PO DAILY [facility] Metoprolol Tartrate 100 mg 04/14/17 22:00 04/14/17 23:11 Lopressor - PO 100 mg BID SIMON Administration Rivaroxaban 10 mg 04/15/17 10:00 Xarelto - PO DAILY [facility] Last Vital Signs Temp Pulse Resp BP Pulse Ox 97.5 F L 129 H 16 90/55 95 04/15/17 04:00 04/15/17 04:00 04/15/17 04:00 04/15/17 04:00 04/14/17 23:00 Intake & Output 04/12/17 04/13/17 04/14/17 04/15/17 23:59 23:59 23:59 23:59 Intake Total 190 110 Balance 190 110 Weight 98 lb 101 lb 9.6 oz General NAD KLAMATH CV S1 S2 irregular, tachycardic Lungs CTA B/L no wheezing/rales/rhonchi ABdomen soft NT/ND Extremities trace pitting edema. +varicose veins B/L LE. CBCD WBC 5.4 K/mm3 (4.0-10.0) 04/15/17 05:05 RBC 4.42 M/mm3 (3.60-5.2) 04/15/17 05:05 Hgb 12.2 GM/dL (10.7-15.3) 04/15/17 05:05 Hct 39.5 % (32.4-45.2) 04/15/17 05:05 MCV 89.5 fl (80-96) 04/15/17 05:05 MCHC 30.9 g/dl (32.0-36.0) L 04/15/17 05:05 RDW 17.1 % (11.6-15.6) H 04/15/17 05:05 Plt Count 181 K/MM3 (134-434) D 04/15/17 05:05 MPV 9.4 fl (7.5-11.1) 04/15/17 05:05 CMP Sodium 142 mmol/L (136-145) 04/15/17 05:05 Potassium 3.8 mmol/L (3.5-5.1) 04/15/17 05:05 Chloride 106 mmol/L (98-107) 04/15/17 05:05 Carbon Dioxide 26 mmol/L (21-32) 04/15/17 05:05 Anion Gap 10 (8-16) 04/15/17 05:05 BUN 32 mg/dL (7-18) H 04/15/17 05:05 Creatinine 1.2 mg/dL (0.55-1.02) H 04/15/17 05:05 Creat Clearance w eGFR 42.80 (>60) 04/15/17 05:05 Calcium 7.7 mg/dL (8.5-10.1) L 04/15/17 05:05 Total Bilirubin 1.7 mg/dL (0.2-1.0) H 04/15/17 05:05 AST 28 U/L (15-37) 04/15/17 05:05 ALT 39 U/L (12-78) 04/15/17 05:05 Alkaline Phosphatase 122 U/L (45-117) H 04/15/17 05:05 Total Protein 5.3 g/dl (6.4-8.2) L 04/15/17 05:05 Albumin 2.7 g/dl (3.4-5.0) L 04/15/17 05:05 ASSESSMENT AND PLAN: 86yo F with PMH AFib on xarelto, CAD s/p stents, hypothyroid, Systolic CHF, dyslipidemia sent to the ER by her patient care manager for afib with RVR 1. Afib with RVR-HR uncontrolled. cardiac markers negative x2. did not receive loading dose of amio last night. was given this AM. cont amio TID and increased dose of metoprolol. would benefit from cardiac cath. pt has refused in the past. cont cardiac monitoring and Rate control. on xarelto. 2. Acute pulmonary edema- due to rapid afib. s/p lasix 20mg yesterday. somewhat improved. will hold lasix at this time to allow more BP room. 3. Elevated INR- now improved. no signs of bleeding. unclear why was elevated but improving without treatment. will monitor for now. will restart xarelto. 4. Non productive cough- could be due to pulmonary congestion vs viral infection. she is afebrile with no leukocytosis. no infiltrate seen on EKG. would hold abx at this time 5. Hypothyroid-TSH at upper limit of normal. would recommend it being repeated in 6 weeks. Cont LT4 6, SELMA- likely pre-renal. improving. cont to monitor. cont Acei. 7. DVT ppx- elevated INR 8. spoke with daughter, Corie, over the phone. updated on current events. states that her and her brother would ensure that she was compliant with medications and took as instructed. Believes her PMD stopped her amio but is unclear why. States she was definately not taking coumadin. no recent antibiotics. will speak with mother about cardiac cath but confirms that she has refused it in the past and has verbalized she does not want any more aggressive testing. informed anticipate discharge on Monday. all questions answered. verbalized agreement and understanding with plan Visit type - Emergency Visit Emergency Visit: Yes ED Registration Date: 04/14/17 Care time: The patient presented to the Emergency Department on the above date and was hospitalized for further evaluation of their emergent condition. - New Patient This patient is new to me today: No - Critical Care Critical Care patient: No - Discharge Referral Referred to [facility] Med P.C.: No
[2017-04-15] MEDS: METOPROLOL TARTRATE 50 MG TABLET (FP) PO SCH ×2 (10:29→21:16)
[2017-04-15] MEDS: LISINOPRIL 5 MG TABLET (FP) PO SCH (10:34)
[2017-04-15] MEDS ORDERED: PT OWN MED DRAWER 7, Y5N ONE (10:47)
[2017-04-15] MEDS: RIVAROXABAN 10 MG TABLET PO SCH (11:40)
--- NOTE | 2017-04-15 12:19 | EKG ---
Test Reason : Blood Pressure : / mmHG Vent. Rate : 144 BPM Atrial Rate : 159 BPM P-R Int : 000 ms QRS Dur : 076 ms QT Int : 316 ms P-R-T Axes : 000 -27 223 degrees QTc Int : 489 ms ATRIAL FIBRILLATION WITH RAPID VENTRICULAR RESPONSE ABNORMAL ECG WHEN COMPARED WITH ECG OF 14-APR-2017 15:29, ST NO LONGER DEPRESSED IN INFERIOR LEADS INVERTED T WAVES HAVE REPLACED NONSPECIFIC T WAVE ABNORMALITY IN LATERAL LEADS Confirmed by MD DIANN, ABHILAHS ([id number]) on 04/15/2017 12:18:58 PM Referred By: Confirmed By:ABHILASH TIDWELL MD
[2017-04-15] MEDS ORDERED: FUROSEMIDE 40 MG/4 ML INJECTABLE VIAL IVPUSH ONE (18:15)
[2017-04-15] MEDS ORDERED: PNEUMOC 13-VAL CONJ-DIP CRM/PF 0.5 ML DISP.SYRIN IM ONE (19:35)
[2017-04-16] MEDS: LEVOTHYROXINE NA 75 MCG TABLET (FP) PO SCH (06:03)
[2017-04-16] MEDS: AMIODARONE HCL 200 MG TABLET (FP) PO SCH ×3 (06:03→22:42)
[2017-04-16 07:06] LABS: INR 3.86 (0.82-1.09); PROTHROMBIN TIME (PATIENT) 43.6 SEC (9.98-11.88)
[2017-04-16 07:08] LABS: HEMATOCRIT 39.6 % (32.4-45.2); HEMOGLOBIN 12.2 GM/dL (10.7-15.3); MCH 27.4 pg (25.7-33.7); MCHC 30.9 g/dl (32.0-36.0); MEAN CELL VOLUME 88.6 fl (80-96); MEAN PLT VOLUME 9.4 fl (7.5-11.1); PLATELET COUNT 173 K/MM3 (134-434); RBC 4.47 M/mm3 (3.60-5.2); RDW 17.3 % (11.6-15.6); WHITE BLOOD COUNT 5.9 K/mm3 (4.0-10.0)
[2017-04-16 07:12] LABS: ANION GAP 11 (8-16); BLOOD UREA NITROGEN 39 mg/dL (7-18); CALCIUM 8.1 mg/dL (8.5-10.1); CHLORIDE 105 mmol/L (98-107); CO2 25 mmol/L (21-32); CREATININE 1.5 mg/dL (0.55-1.02); GLUCOSE,RANDOM 104 mg/dL (74-106); POTASSIUM 4.1 mmol/L (3.5-5.1); SODIUM 141 mmol/L (136-145)
[2017-04-16] MEDS ORDERED: PT OWN MED DRAWER 7, Y5N ONE (09:23)
[2017-04-16] MEDS: LISINOPRIL 5 MG TABLET (FP) PO SCH (09:31)
[2017-04-16] MEDS: RIVAROXABAN 10 MG TABLET PO SCH (09:32)
[2017-04-16] MEDS: METOPROLOL TARTRATE 50 MG TABLET (FP) PO SCH ×2 (09:32→22:42)
--- NOTE | 2017-04-16 09:46 | PN ---
Progress Note, Physician History of Present Illness: seen and examined today in [facility]. feeling better. no overnight events. no new complaints. - Current Medication List Current Medications: Active Medications Amiodarone HCl (Cordarone -) 400 mg PO TID [facility] Last Admin: 04/16/17 06:03 Dose: 400 mg Levothyroxine Sodium (Synthroid -) 75 mcg PO DAILY@0700 [facility] Last Admin: 04/16/17 06:03 Dose: 75 mcg Lisinopril (Prinivil) 2.5 mg PO DAILY [facility] Last Admin: 04/16/17 09:31 Dose: 2.5 mg Metoprolol Tartrate (Lopressor -) 100 mg PO BID [facility] Last Admin: 04/16/17 09:32 Dose: 100 mg Rivaroxaban (Xarelto -) 10 mg PO DAILY [facility] Last Admin: 04/16/17 09:32 Dose: 10 mg - Objective Vital Signs: Vital Signs Temperature 97.6 F 04/16/17 06:00 Pulse Rate 113 H 04/16/17 06:00 Respiratory Rate 18 04/16/17 06:00 Blood Pressure 96/70 04/16/17 06:00 O2 Sat by Pulse Oximetry (%) 95 04/15/17 21:00 Constitutional: Yes: No Distress, Calm Eyes: Yes: Conjunctiva Clear, EOM Intact, PERRL HENT: Yes: Atraumatic, Normocephalic Neck: Yes: Supple, Trachea Midline Cardiovascular: Yes: Tachycardia, Pulse Irregular, Murmur, S1, S2. No: Regular Rate and Rhythm, Bradycardia, Bruit, JVD, Gallop, Rub, S3, S4, Varicosities Respiratory: Yes: Regular, Diminished, Rales. No: Rhonchi, SOB, Wheezes Gastrointestinal: Yes: Normal Bowel Sounds, Soft. No: Distention, Tenderness Edema: Yes Edema: LLE: 2+, RLE: 2+ Peripheral Pulses WNL: Yes Peripheral Pulses: Left Doralis Pedis: 2+, Right Dorsalis Pedis: 2+ Neurological: Yes: Alert, Oriented Psychiatric: Yes: Alert, Oriented Labs: CBC, BMP 04/16/17 05:05 04/16/17 05:05 INR, PTT INR 3.86 (0.82-1.09) H D 04/16/17 05:05 - ....Imaging Chest X-ray: Report Reviewed, Image Reviewed EKG: Report Reviewed, Image Reviewed Other: Report Reviewed, Image Reviewed (tele-AFib, HR still above goal but overall trend improved) Assessment/Plan Afib with RVR-HR still above goal but trend improving -cont Amiodarone po loading with 400mg tid for now -cont Lopressor -blood pressure not tolerating uptitration of Metoprolol or addition of cardizem at this time -if needed for BP room to increase rate control can hold Lisinopril -cont Xarelto Acute on chronic diastolic CHF-maybe secondary to AFib with RVR -was on IV Lasix but BP running low normal -resume Lasix once BP tolerates -HR control as above CAD-abnl stress test in the past, refused cath -being considered further for cardiac cath but has refused in the past
--- NOTE | 2017-04-16 12:29 | PN ---
Physical Exam: SUBJECTIVE: Patient seen and examined at bed side this morning. No new complaints. Denies chest pain, sob, cough, palpitation, abdominal pain, nausea or vomiting. Moved bowel today. Bladder habit normal-on diapers, has h/o urinary incontinence. Sleep/Appetite normal. No acute overnight events. Tele monitor-rate uncontrolled HR around 120's, rest not significant. OBJECTIVE: Vital Signs Period Temp Pulse Resp BP Sys/Gandara Pulse Ox Last 24 Hr 97.1 F-97.6 F 108-131 18-20 87-96/49-76 95 GENERAL: Elderly female, is awake, alert, and fully oriented, in no acute distress. HEAD: Normal with no signs of trauma. EYES: EOM intact, no pallor or icterus. ENT: Ears normal, moist mucous membranes. NECK: Supple. LUNGS: Breath sounds equal, clear to auscultation bilaterally, no wheezes, no crackles, no accessory muscle use. HEART: Tachycardic to 120's, Irregularly irregular rate and rhythm, S1, S2 with 3/6 systolic murmur. ABDOMEN: Soft, nontender, nondistended, normoactive bowel sounds, no guarding, no rebound, no hepatosplenomegaly, no masses. UPPER EXTREMITIES: 2+ pulses, warm, well-perfused, no edema. LOWER EXTREMITIES: 2+ pulses, warm, well-perfused, B/L pitting edema upto mid calf ++. NEUROLOGICAL: No facial droop, power 5/5 in all extremities, Normal speech, gait not observed. PSYCH: Normal mood, normal affect. SKIN: Warm, dry, normal turgor, no rashes or lesions noted Laboratory Results - last 24 hr 04/16/17 04/16/17 04/16/17 05:05 05:05 05:05 WBC 5.9 RBC 4.47 Hgb 12.2 Hct 39.6 MCV 88.6 MCH 27.4 MCHC 30.9 L RDW 17.3 H Plt Count 173 MPV 9.4 PT with INR 43.60 H INR 3.86 H D Sodium 141 Potassium 4.1 Chloride 105 Carbon Dioxide 25 Anion Gap 11 BUN 39 H Creatinine 1.5 H Random Glucose 104 Calcium 8.1 L Active Medications Generic Name Dose Route Start Last Admin Trade Name Freq PRN Reason Stop Dose Admin Amiodarone HCl 400 mg 04/14/17 22:00 04/16/17 06:03 Cordarone - PO 400 mg TID SIMON Administration Levothyroxine Sodium 75 mcg 04/15/17 07:00 04/16/17 06:03 Synthroid - PO 75 mcg DAILY@0700 SIMON Administration Metoprolol Tartrate 100 mg 04/14/17 22:00 04/16/17 09:32 Lopressor - PO 100 mg BID SIMON Administration Rivaroxaban 10 mg 04/15/17 10:00 04/16/17 09:32 Xarelto - PO 10 mg DAILY SIMON Administration ASSESSMENT/PLAN: Patient is a 86 year old F with significant past medical history of CAD with abnormal stress test refused Cath, afib on xarelto, HFpEF (EF 67.8%, 2016) and HLD who was sent from her ropeman's office (Dr. Acosta) to ED due to office EKG notable for Afib with RVR w/ rate in 160s. 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 Lopes recommendation # Acute on chronic systolic CHF Abnormal stress test 02/10/17: EF 43 % Continue Lopressor 100mg BID I's and O's (difficult to measure output as patient is incontinent) Daily weights (increased 2 lbs since yesterday 101-->103 lb) Hold Lasix due to hypotension # Hypertension-currently Hypotensive Was 87/49 mmHg yest, today 96/70 mmHg Will hold lisinopril and continue other meds with close BP monitoring # Supratherapeutic INR INR today: 3.86 No h/o liver disease, not on coumadin in the past USG of abdomen to r/o liver abnormalities Repeat INR and LFT's in AM # Hypothyroidism Continue synthroid 75 mcg # Prophylaxis For DVT: Already on Xarelto For GI: Not indicated # FEN Not on IV fluids, tolerating PO Electrolytes to be repeated in AM Sodium controlled diet # Code Status Full Code # Dispo: Admitted in Tele. Duration of stay unknown. Illness, Investigation and Plan of care explained to the patient. She verbalized understanding. Case discussed with Dr. Strauss. Visit type - Emergency Visit Emergency Visit: Yes ED Registration Date: 04/14/17 Care time: The patient presented to the Emergency Department on the above date and was hospitalized for further evaluation of their emergent condition. - New Patient This patient is new to me today: Yes Date on this admission: 04/16/17 - Critical Care Critical Care patient: No - Discharge Referral Referred to [facility] No
--- NOTE | 2017-04-16 16:38 | PN ---
Teaching Attending Note Name of Resident: Amaya Arreaga ATTENDING PHYSICIAN STATEMENT I saw and evaluated the patient. I reviewed the resident's note and discussed the case with the resident. I agree with the resident's findings and plan as documented. SUBJECTIVE: resting comfortable. denies CP, SOB< fever, chills, N/V/C?D or palpitations OBJECTIVE: Last Vital Signs Temp Pulse Resp BP Pulse Ox 98.1 F 112 H 20 97/64 95 04/16/17 14:00 04/16/17 15:33 04/16/17 14:00 04/16/17 15:33 04/16/17 09:00 General NAD LIME CV s1 s2 irregular tachycardic LUngs decreased breath sounds bases Extremities 1+ pitting edema ASSESSMENT AND PLAN: 86yo F with PMH AFib on xarelto, CAD s/p stents, hypothyroid, Systolic CHF, dyslipidemia sent to the ER by her photographic equipment technician for afib with RVR 1. Afib with RVR-HR uncontrolled. on amio and metoprolol. unable to titrate up because of BP. will need to consider cardioversion if unable to control the rate. cont cardiac monitoring. on xarelto. 2. Acute pulmonary edema- due to rapid afib. unable to give lasix due to hypotension. will give once BP can tolerate. will d/c acei 3. Elevated INR- increased. check abdominal u/s to look for liver disease. hematology consult. hold xarelto 4. Non productive cough- could be due to pulmonary congestion vs viral infection. she is afebrile with no leukocytosis. no infiltrate seen on EKG. would hold abx at this time 5. Hypothyroid-TSH at upper limit of normal. would recommend it being repeated in 6 weeks. Cont LT4 6, SELMA- likely pre-renal. improving. cont to monitor. 7. DVT ppx- elevated INR
[2017-04-17] MEDS: LEVOTHYROXINE NA 75 MCG TABLET (FP) PO SCH (06:03)
[2017-04-17] MEDS: AMIODARONE HCL 200 MG TABLET (FP) PO SCH ×3 (06:03→21:27)
[2017-04-17 06:56] LABS: HEMATOCRIT 42.2 % (32.4-45.2); HEMOGLOBIN 12.9 GM/dL (10.7-15.3); MCH 27.4 pg (25.7-33.7); MCHC 30.6 g/dl (32.0-36.0); MEAN CELL VOLUME 89.4 fl (80-96); MEAN PLT VOLUME 9.5 fl (7.5-11.1); PLATELET COUNT 177 K/MM3 (134-434); RBC 4.71 M/mm3 (3.60-5.2); RDW 17.1 % (11.6-15.6); WHITE BLOOD COUNT 11.1 K/mm3 (4.0-10.0)
[2017-04-17 07:19] LABS: PROTHROMBIN TIME (PATIENT) 45.8 SEC (9.98-11.88)
[2017-04-17 07:25] LABS: CHLORIDE 104 mmol/L (98-107); POTASSIUM 4.6 mmol/L (3.5-5.1); SODIUM 139 mmol/L (136-145)
[2017-04-17 07:32] LABS: ALBUMIN 2.8 g/dl (3.4-5.0); ALK PHOS 133 U/L (45-117); ANION GAP 12 (8-16); BILIRUBIN,TOTAL 2.6 mg/dL (0.2-1.0); BLOOD UREA NITROGEN 44 mg/dL (7-18); CALCIUM 8.3 mg/dL (8.5-10.1); CO2 23 mmol/L (21-32); CREATININE 1.6 mg/dL (0.55-1.02); GLUCOSE,RANDOM 93 mg/dL (74-106); SGOT/AST 36 U/L (15-37); SGPT/ALT 42 U/L (12-78); TOT PROT 5.8 g/dl (6.4-8.2)
[2017-04-17 07:35] LABS: INR 4.05 (0.82-1.09)
[2017-04-17] MEDS: METOPROLOL TARTRATE 50 MG TABLET (FP) PO SCH ×2 (09:27→21:27)
--- NOTE | 2017-04-17 12:12 | PN ---
Progress Note, Physician History of Present Illness: "Patient is an 86 year old female with a significant past medical history of CAD w/ stents, afib on xarelto, HFpEF (EF 67.8%, 2016) and HLD who presents to the ED for tachycardia. Patient was seen in cardiology clinic today and was found on EKG to be in afib with RVR with a rate of 160. She was subsequently sent to ER for management. Patient currently has no complaints or pain while in the ED. Denies ever having CP/SOB/palpitations. Denies F/C/N/V/D. Reports compliance with all of her medications. Patient presented to the office Off amiodarone and with reduced dose of bb. 2 weeks h/o of decompensated chf rx with increased dose of lasix. yesterday vissiting nurse noted pulse 160's, ems called, confirmed, patient refused admission to hospital yesterday. Today in my office she presented asymptomatic with +3 lower extremity edema and AF with RVR 167 bpm. PMH ASHD s/p PTCA SANNA mLAD PTCA D2 2007 Atrial fibrillation HHD HTN Positive MIBI in the past refused repeated c. cath - Current Medication List Current Medications: Active Medications Amiodarone HCl (Cordarone -) 400 mg PO TID [facility] Last Admin: 04/17/17 06:03 Dose: Not Given Levothyroxine Sodium (Synthroid -) 75 mcg PO DAILY@0700 [facility] Last Admin: 04/17/17 06:03 Dose: 75 mcg Metoprolol Tartrate (Lopressor -) 100 mg PO BID [facility] Last Admin: 04/17/17 09:27 Dose: Not Given - Objective Vital Signs: Vital Signs Temperature 97.8 F 04/17/17 10:00 Pulse Rate 115 H 04/17/17 11:55 Respiratory Rate 18 04/17/17 11:55 Blood Pressure 120/67 04/17/17 11:55 O2 Sat by Pulse Oximetry (%) 95 04/17/17 09:00 Eyes: Yes: WNL, Conjunctiva Clear, EOM Intact HENT: Yes: WNL, Atraumatic, Normocephalic Neck: Yes: WNL, Supple, Trachea Midline Cardiovascular: Yes: Pulse Irregular, S1, S2 Respiratory: Yes: WNL, Regular, CTA Bilaterally Gastrointestinal: Yes: WNL, Normal Bowel Sounds Genitourinary: Yes: WNL Musculoskeletal: Yes: WNL Extremities: Yes: WNL Edema: No Integumentary: Yes: WNL Neurological: Yes: WNL, Alert, Oriented ...Motor Strength: WNL Psychiatric: Yes: WNL Labs: CBC, BMP 04/17/17 06:35 04/17/17 06:35 INR, PTT INR 4.05 (0.82-1.09) H* 04/17/17 06:35 Problem List - Problems (1) Acute on chronic systolic and diastolic heart failure, NYHA class 2 Code(s): I50.43 - ACUTE ON CHRONIC COMBINED SYSTOLIC AND DIASTOLIC HRT FAIL (2) CAD (coronary artery disease) Code(s): I25.10 - ATHSCL HEART DISEASE OF [place] CORONARY ARTERY W/O ANG PCTRS (3) Dizziness Code(s): R42 - DIZZINESS AND GIDDINESS (4) Afib Code(s): I48.91 - UNSPECIFIED ATRIAL FIBRILLATION (5) CHF (congestive heart failure) Code(s): I50.9 - HEART FAILURE, UNSPECIFIED Assessment/Plan Afib better controlled 100-125 -cont Amiodarone po loading with 400mg tid for now -cont Lopressor -hold Lisinopril -cont Xarelto Acute on chronic diastolic CHF-maybe secondary to AFib with RVR -was on IV Lasix but BP running low normal -resume Lasix once BP tolerates -HR control as above CAD-abnl stress test in the past, refused cath -being considered further for cardiac cath but has refused in the past
--- NOTE | 2017-04-17 13:01 | EKG ---
Test Reason : Blood Pressure : / mmHG Vent. Rate : 110 BPM Atrial Rate : 141 BPM P-R Int : 000 ms QRS Dur : 080 ms QT Int : 330 ms P-R-T Axes : 000 -19 242 degrees QTc Int : 446 ms ATRIAL FIBRILLATION WITH RAPID VENTRICULAR RESPONSE T WAVE ABNORMALITY, CONSIDER ANTEROLATERAL ISCHEMIA ABNORMAL ECG WHEN COMPARED WITH ECG OF 16-APR-2017 18:40, NO SIGNIFICANT CHANGE WAS FOUND Confirmed by DAVIE CHRISTENSEN, DAMIEN ([id number]) on 04/17/2017 1:01:20 PM Referred By: Confirmed By:DAMIEN BRODERICK MD
--- NOTE | 2017-04-17 13:03 | EKG ---
Test Reason : Blood Pressure : / mmHG Vent. Rate : 109 BPM Atrial Rate : 081 BPM P-R Int : 000 ms QRS Dur : 082 ms QT Int : 326 ms P-R-T Axes : 000 -06 248 degrees QTc Int : 439 ms ATRIAL FIBRILLATION WITH RAPID VENTRICULAR RESPONSE T WAVE ABNORMALITY, CONSIDER LATERAL ISCHEMIA ABNORMAL ECG WHEN COMPARED WITH ECG OF 14-APR-2017 17:58, QT HAS SHORTENED Confirmed by DAMIEN BRODERICK MD ([id number]) on 04/17/2017 1:02:45 PM Referred By: Confirmed By:DAMIEN BRODERICK MD
--- NOTE | 2017-04-17 13:07 | EKG ---
Test Reason : Blood Pressure : / mmHG Vent. Rate : 095 BPM Atrial Rate : 091 BPM P-R Int : 000 ms QRS Dur : 078 ms QT Int : 394 ms P-R-T Axes : 000 -16 242 degrees QTc Int : 495 ms ATRIAL FIBRILLATION WITH PREMATURE VENTRICULAR OR ABERRANTLY CONDUCTED COMPLEXES T WAVE ABNORMALITY, CONSIDER INFERIOR ISCHEMIA T WAVE ABNORMALITY, CONSIDER ANTEROLATERAL ISCHEMIA PROLONGED QT ABNORMAL ECG WHEN COMPARED WITH ECG OF 14-APR-2017 16:54, VENT. RATE HAS DECREASED BY 49 BPM Confirmed by DAMIEN BRODERICK MD ([id number]) on 04/17/2017 1:07:23 PM Referred By: Confirmed By:DAMIEN BRODERICK MD
--- NOTE | 2017-04-17 13:40 | PN ---
Teaching Attending Note Name of Resident: Sofia Ferrer ATTENDING PHYSICIAN STATEMENT I saw and evaluated the patient. I reviewed the resident's note and discussed the case with the resident. I agree with the resident's findings and plan as documented. SUBJECTIVE:asymptomatic. denies CP, SOB, fever ,chills, N/V/C/D, palpitations, orthopnea OBJECTIVE: Last Vital Signs Temp Pulse Resp BP Pulse Ox 97.8 F 115 H 18 120/67 95 04/17/17 10:00 04/17/17 11:55 04/17/17 11:55 04/17/17 11:55 04/17/17 09:00 General NAD PAIMIUT CV s1 s2 irregular tachycardic LUngs decreased breath R bases Extremities 1+ pitting edema ASSESSMENT AND PLAN: 86yo F with PMH AFib on xarelto, CAD s/p stents, hypothyroid, Systolic CHF, dyslipidemia sent to the ER by her sap gatherer for afib with RVR 1. Afib with RVR-HR uncontrolled. on amio and metoprolol. unable to titrate up because of BP. spoke with cardio whom stated she does not require cardioversion at this time. states since she is asymptomatic it is not indicated. will cont current mangagement. ideally should have cardiac cath however pt has refused. sharlene agrees with decision. 2. Acute pulmonary edema- due to rapid afib. unable to give lasix due to hypotension. will give once BP can tolerate. acei d/c. 3. Elevated INR- increased. abdominal u/s negative for liver pathology. awaiting hematology input. will hold xarelto with current elevated INR. 4. Non productive cough- could be due to pulmonary congestion vs viral infection. she is afebrile with no leukocytosis. no infiltrate seen on EKG. would hold abx at this time 5. Hypothyroid-TSH at upper limit of normal. would recommend it being repeated in 6 weeks. Cont LT4 6, SELMA- likely pre-renal. improving. cont to monitor. 7. DVT ppx- elevated INR 8. PT assessment
--- NOTE | 2017-04-17 19:36 | PN ---
Physical Exam: SUBJECTIVE: Patient seen and examined in AM. No SOB, chest pain, palpitations or chest discomfort. No fever or chills. Patient ambulated to bathroom. OBJECTIVE: Vital Signs Period Temp Pulse Resp BP Sys/Gandara Pulse Ox Last 24 Hr 97.1 F-98 F 112-126 18-20 93-120/37-70 95-95 GENERAL: elderly woman, lying comfortably in bed, nad, aaox3 EYES: sclera anicteric, conjunctiva clear ENT: moist mucous membranes LUNGS: decreased breath sounds at R base; no wheezing, rhonchi, or rales appreciated HEART: irreg, tachycardic, normal s1/s2 ABDOMEN: Soft, ntnd EXTREMITIES: 2+ DP pulses, wwp, 2+ pitting pre-tibial and pedal edema bilaterally CBC, BMP 04/17/17 06:35 04/17/17 06:35 Hepatic Panel Total Bilirubin 2.6 mg/dL (0.2-1.0) H D 04/17/17 06:35 AST 36 U/L (15-37) 04/17/17 06:35 ALT 42 U/L (12-78) 04/17/17 06:35 Alkaline Phosphatase 133 U/L (45-117) H 04/17/17 06:35 Albumin 2.8 g/dl (3.4-5.0) L 04/17/17 06:35 INR, PTT INR 4.05 (0.82-1.09) H* 04/17/17 06:35 Active Medications Generic Name Dose Route Start Last Admin Trade Name Freq PRN Reason Stop Dose Admin Amiodarone HCl 400 mg 04/14/17 22:00 04/17/17 13:20 Cordarone - PO 400 mg TID SIMON Administration Levothyroxine Sodium 75 mcg 04/15/17 07:00 04/17/17 06:03 Synthroid - PO 75 mcg DAILY@0700 SIMON Administration Metoprolol Tartrate 100 mg 04/14/17 22:00 04/17/17 09:27 Lopressor - PO Not Given BID [facility] ASSESSMENT/PLAN: 86yo woman with PMH of Afib (on Xarelto), CAD (abnormal stress test, refused Cath), HFpEF (EF 67.8%, 2016) and HLD who was sent from her water meter installer's office (Dr. Acosta) due to EKG notable for Afib with RVR w/ rate in 160s. #Afib with RVR, HR in 110-120's -c/w Amiodarone 400mg PO TID and Metoprolol 100mg PO BID -hold Xarelto due to elevated INR #acute on chronic systolic CHF -daily weights, I&O's -Metoprolol 100mg BID -hold lasix due to hypotension #HTN -currently hypotensive -hold lisinopril and continue other meds with close BP monitoring #supratherapeutic INR, Abd U/S wnl -Heme consulted. Appreciate recommendations -continue to hold Xarelto #hypothyroidism - c/w Synthroid 75 mcg qd #DVT PPX: INR supratherapeutic #FEN: PO hydration / lytes wnl / Na controlled diet #PT eval: walked 85feet with rolling walker today #Dispo: cont tele FULL code d/w Dr. Carlos A Ferrer MD PGY1 - Internal Medicine Visit type - Emergency Visit Emergency Visit: No - New Patient This patient is new to me today: Yes Date on this admission: 04/17/17 - Critical Care Critical Care patient: No
--- NOTE | 2017-04-17 20:14 | CONSULT ---
Consult - text type - Consultation Consultation Note: Patient seen and examined Patient is an 86 year old female with a significant past medical history of CAD w/ stents, afib on xarelto, HFpEF (EF 67.8%, 2016) and HLD who presents to the ED for tachycardia. Patient was seen in cardiology clinic and was found on EKG to be in afib with RVR with a rate of 160. She was subsequently sent to ER for management. 2 weeks h/o of decompensated chf rx with increased dose of lasix. PMH ASHD s/p PTCA SANNA mLAD PTCA D2 2007 Atrial fibrillation HHD HTN Positive MIBI in the past refused repeated c. cath - History Source History Provided By: Patient, Family Member, Medical Record - Past Medical History Cardio/Vascular: Yes: AFIB, CAD, HTN - Smoking History Smoking history: Never smoked - Allergies Allergies/Adverse Reactions: Allergies Allergy/AdvReac Type Severity Reaction Status Date / Time No Known Allergies Allergy Verified 04/14/17 15:50 - Home Medications Home Medications: Ambulatory Orders Lisinopril [Zestril] 2.5 mg PO DAILY 03/13/16 Furosemide [Lasix -] 40 mg PO DAILY #30 tablet 02/13/17 Levothyroxine [Synthroid -] 50 mcg PO DAILY@0700 tablet 02/13/17 Metoprolol Succinate [Toprol Xl] 50 mg PO DAILY #30 tab.er.24h 02/13/17 Polyethylene Glycol 3350 [Miralax 119 gm Btl -] 17 gm PO DAILY bottle 02/14/17 Rivaroxaban [Xarelto -] 15 mg PO DAILY tablet 02/14/17 AFVSS Cor: RSR, No murmurs, No gallops Lungs: Clear to P&A Abd: Soft, Normal bowel sounds, No organomegaly Ext:2+ edema b/l Skin: No rashes, Integument intact Problem List - Problems (1) Acute on chronic systolic and diastolic heart failure, NYHA class 2 Code(s): I50.43 - ACUTE ON CHRONIC COMBINED SYSTOLIC AND DIASTOLIC HRT FAIL (2) CAD (coronary artery disease) Code(s): I25.10 - ATHSCL HEART DISEASE OF [place] CORONARY ARTERY W/O ANG PCTRS (3) Dizziness Code(s): R42 - DIZZINESS AND GIDDINESS (4) Afib Code(s): I48.91 - UNSPECIFIED ATRIAL FIBRILLATION (5) CHF (congestive heart failure) Code(s): I50.9 - HEART FAILURE, UNSPECIFIED A/P 86 yo F w/ h/o CAD w/ stents, afib on xarelto, HFpEF (EF 67.8%, 2016) and HLD who was sent from her chainstitch seat joiner's office to ED due to office EKG notable for Afib with RVR w/ rate in 160s. Being treeated for afib with amiodarone/metoprolol and acute on chronic CHF. also with CKD coagulopathy--elevated INR. Normal PTT Xeralto could elevate PT/INR In addition congestive hepatopathy from CHF, occult sepsis and Vit. K deficiency could be additional factors. Given lower extremity edema and clinical picture suspect congestive hepatopathy as the contributing factor would give trialof vit. K 5mg SC for 3 days also patient with CKD --cr cl 30ml/min Would discuss with cardiology about choice of a/c in this setting. Coumadin vs eliquis vs xeralto given renal impairment ands suspecting component of congestive hepatopathy with coagulopathy at base line, briding heparin or lovenox to coumadin and closely , monitoring INR may be a safer alternative.
[2017-04-17] MEDS: PHYTONADIONE 10 MG/1 ML AMP SQ SCH (21:26)
--- NOTE | 2017-04-18 05:49 | PN ---
Physical Exam: SUBJECTIVE: Patient seen and examined - Hypotensive yesterday PM. Metoprolol held. No events overnight. Pt with no complaints. Denies BAUER/lightheadness, dizziness, CP, ab pain, SOB, chest tightness, N/V, fevers/chills PM: - Pt complaining of mild epigastric discomfort; BM in PM; no hx of GERD per son ; ordered for KUB and tylenol for pain control OBJECTIVE: Vital Signs Intake & Output 04/15/17 04/16/17 04/17/17 04/18/17 23:59 23:59 23:59 23:59 Intake Total 110 350 310 Balance 110 350 310 Weight 46.085 kg 46.992 kg 47.264 kg Period Temp Pulse Resp BP Sys/Gandara Pulse Ox Last 24 Hr 97.0 F-98 F 108-124 18-20 93-120/37-82 95-96 GENERAL: Elderly, romanian speaking woman in [facility]. Awake, alert, and fully oriented. Appears slightly flushed, diaphoretic HEAD: Normal with no signs of trauma. EYES: Pupils equal, round and reactive to light, extraocular movements intact, sclera anicteric, conjunctiva clear. No lid lag. EARS, NOSE, THROAT: Ears normal, nares patent, oropharynx clear without exudates. Moist mucous membranes. NECK: JVD 2cm below mandible. Normal range of motion, supple without lymphadenopathy, or masses. LUNGS: Decreased breath sounds at base, trace bibasilar crackles. No wheezes, and no crackles. No accessory muscle use. HEART: Irregularly Irregular, normal S1 and S2 without murmur, rub or gallop. ABDOMEN: Soft, nontender, not distended, normoactive bowel sounds, no guarding, no rebound, no masses. No hepatomegaly or splenomegaly. MUSCULOSKELETAL: Normal range of motion at all joints. No bony deformities or tenderness. No CVA tenderness. UPPER EXTREMITIES: 2+ pulses, warm, well-perfused. No cyanosis. No clubbing. No peripheral edema. LOWER EXTREMITIES: 2+ pulses, warm, well-perfused. No calf tenderness. BL superficial varicose veins/spider angiomas on anterior shins. 2 + pitting edema BL to knees. NEUROLOGICAL: Cranial nerves II-XII intact. Normal speech. Normal gait. 5/5 strength in all extremities. Sensation to light touch preserved diffusely PSYCHIATRIC: Cooperative. Good eye contact. Appropriate mood and affect. SKIN: Warm, dry, normal turgor, no rashes or lesions noted, normal capillary refill. Laboratory Results - last 24 hr CBC, BMP 04/18/17 05:05 04/18/17 05:05 04/17/17 06:35 04/17/17 06:35 04/17/17 04/17/17 04/17/17 06:35 06:35 06:35 WBC 11.1 H D RBC 4.71 Hgb 12.9 Hct 42.2 MCV 89.4 MCH 27.4 MCHC 30.6 L RDW 17.1 H Plt Count 177 MPV 9.5 PT with INR 45.80 H INR 4.05 H* Sodium 139 Potassium 4.6 Chloride 104 Carbon Dioxide 23 Anion Gap 12 BUN 44 H Creatinine 1.6 H Creat Clearance w eGFR 30.71 Random Glucose 93 Calcium 8.3 L Total Bilirubin 2.6 H D AST 36 ALT 42 Alkaline Phosphatase 133 H Total Protein 5.8 L Albumin 2.8 L Active Medications Generic Name Dose Route Start Last Admin Trade Name Freq PRN Reason Stop Dose Admin Amiodarone HCl 400 mg 04/14/17 22:00 04/17/17 21:27 Cordarone - PO 400 mg TID SIMON Administration Levothyroxine Sodium 75 mcg 04/15/17 07:00 04/17/17 06:03 Synthroid - PO 75 mcg DAILY@0700 SIMON Administration Metoprolol Tartrate 100 mg 04/14/17 22:00 04/17/17 21:27 Lopressor - PO 100 mg BID SIMON Administration Phytonadione 5 mg 04/17/17 20:45 04/17/17 21:26 Aqua Mephyton Injection - SQ 04/20/17 20:44 5 mg DAILY SIMON Administration Microbiology 04/15/17 04:30 Nasopharyngeal Swab Influenza Types A,B Antigen (SÁNCHEZ) - Final 04/15/17 04:30 Nasopharyngeal Swab - Final Prior echo in 2016 -> pulm htn, severe TR, EF ~67%, dilated atria Echo 02/10 - LVEF reduced in setting of afib with RVR, moderate MR, moderate TR , RV pressure 40-50, LAE Persantine stress test 02/14 - relatively unremarkable with minimal ischemic changes. EKG 04/14 - Afib w/ RVR, no ST changes, TWI in lateral leads, Rate 164 CXR 04/14 - Cardiomegaly, mild congestion, BL pleural effusions ABdominal U/S 04/16 - R pleural effusion; fatty infiltrates of liver; atrophic kidneys with no evidence of hydronephrosis EKG 04/17 - Afib w/ RVR. rate 110, NAD, QTC 446 CXR 04/18 - no change ASSESSMENT/PLAN: 86 yo F w/ h/o CAD w/ stents, afib on xarelto, HFpEF (EF 67.8%, 2016) and HLD who was sent from her cook morning's office to ED due to office EKG notable for Afib with RVR w/ rate in 160s. #Afib with RVR, HR in 110-120's -c/w Amiodarone 400mg PO TID and Metoprolol 100mg PO BID -hold Xarelto due to elevated INR - Plan for coumadin per cardiology for AC #acute on chronic systolic CHF -daily weights, I&O's -Metoprolol 100mg BID -Repeat CXR. If no change in congestion, lasix 20mg IV per cards #SELMA- Cr 1.6 -> 1.4 today - Trend Cr - Daily BMPs - Gentle diuresis #HTN -currently hypotensive -hold lisinopril and continue other meds with close BP monitoring #supratherapeutic INR, Abd U/S wnl - possibly congestive hepatopathy -Heme consulted. Appreciate recommendations; recommend vitamin K for 3 days -continue to hold Xarelto - INR 4.05 -> 2.22 today - Vit K Day 2/ #hypothyroidism - c/w Synthroid 75 mcg qd #DVT PPX: INR supratherapeutic #FEN: PO hydration Daily BMP Na controlled diet PT eval - 85 feet w/ walker on 04/17 Full code Dispo: Telemetry Plan d/w attending, Dr. Leeroy Steele, PGY1 Visit type - Emergency Visit Emergency Visit: Yes ED Registration Date: 04/14/17 Care time: The patient presented to the Emergency Department on the above date and was hospitalized for further evaluation of their emergent condition. - New Patient This patient is new to me today: No - Critical Care Critical Care patient: No
[2017-04-18] MEDS: AMIODARONE HCL 200 MG TABLET (FP) PO SCH ×3 (06:55→22:33)
[2017-04-18] MEDS: LEVOTHYROXINE NA 75 MCG TABLET (FP) PO SCH (06:55)
[2017-04-18 07:10] LABS: ALBUMIN 2.6 g/dl (3.4-5.0); ANION GAP 9 (8-16); BILIRUBIN,TOTAL 2.5 mg/dL (0.2-1.0); BLOOD UREA NITROGEN 40 mg/dL (7-18); CALCIUM 7.5 mg/dL (8.5-10.1); CHLORIDE 105 mmol/L (98-107); CO2 24 mmol/L (21-32); CREATININE 1.4 mg/dL (0.55-1.02); GLUCOSE,RANDOM 85 mg/dL (74-106); POTASSIUM 4.7 mmol/L (3.5-5.1); SGOT/AST 31 U/L (15-37); SGPT/ALT 37 U/L (12-78); SODIUM 138 mmol/L (136-145); TOT PROT 5.3 g/dl (6.4-8.2)
[2017-04-18 07:11] LABS: ALK PHOS 126 U/L (45-117)
[2017-04-18 07:46] LABS: BASO % 0.1 % (0-2.0); EOS % 0.1 % (0-4.5); HEMATOCRIT 40.5 % (32.4-45.2); HEMOGLOBIN 12.7 GM/dL (10.7-15.3); LYMPH % 5.4 % (8-40); MCH 27.5 pg (25.7-33.7); MCHC 31.3 g/dl (32.0-36.0); MEAN CELL VOLUME 87.8 fl (80-96); MEAN PLT VOLUME 9.3 fl (7.5-11.1); MONO % 7.7 % (3.8-10.2); NEUT % 86.7 % (42.8-82.8); PLATELET COUNT 151 K/MM3 (134-434); RBC 4.62 M/mm3 (3.60-5.2); RDW 17.5 % (11.6-15.6); WHITE BLOOD COUNT 9.4 K/mm3 (4.0-10.0)
[2017-04-18 08:10] LABS: INR 2.22 (0.82-1.09); PROTHROMBIN TIME (PATIENT) 25.1 SEC (9.98-11.88)
[2017-04-18 08:39] LABS: ACTIVATED PTT 29.2 SECONDS (26.9-34.4)
[2017-04-18] MEDS: METOPROLOL TARTRATE 50 MG TABLET (FP) PO SCH ×2 (09:14→22:34)
[2017-04-18] MEDS: PHYTONADIONE 10 MG/1 ML AMP SQ SCH (12:52)
--- NOTE | 2017-04-18 13:15 | PN ---
Progress Note, Physician Chief Complaint: Pt A&Ox3; OOB in chair; no palpitations, chest pain, dyspnea, dizziness. History of Present Illness: Patient is an 86 year old female with a significant past medical history of CAD w/ stents, afib on xarelto, HFpEF (EF 67.8%, 2016) and HLD who presents to the ED for tachycardia. Patient was seen in cardiology clinic today and was found on EKG to be in afib with RVR with a rate of 160. She was subsequently sent to ER for management. Patient currently has no complaints or pain while in the ED. Denies ever having CP/SOB/palpitations. Denies F/C/N/V/D. Reports compliance with all of her medications. Allergies: None Social history: Lives with daughter. No smoking. No alcohol. No illicit drugs. Surgical history: None PMD: Dr Parrish. Ethylene Plant Operator: Dr. Andino " - Current Medication List Current Medications: Active Medications Amiodarone HCl (Cordarone -) 400 mg PO TID [facility] Last Admin: 04/18/17 06:55 Dose: 400 mg Levothyroxine Sodium (Synthroid -) 75 mcg PO DAILY@0700 [facility] Last Admin: 04/18/17 06:55 Dose: 75 mcg Metoprolol Tartrate (Lopressor -) 100 mg PO BID [facility] Last Admin: 04/18/17 09:14 Dose: Not Given Phytonadione (Aqua Mephyton Injection -) 5 mg SQ DAILY [facility] Stop: 04/20/17 20:44 Last Admin: 04/18/17 12:52 Dose: 5 mg - Objective Vital Signs: Vital Signs Temperature 97.8 F 04/18/17 09:00 Pulse Rate 112 H 04/18/17 09:00 Respiratory Rate 20 04/18/17 09:00 Blood Pressure 90/58 04/18/17 09:00 O2 Sat by Pulse Oximetry (%) 97 04/18/17 09:00 Constitutional: Yes: Calm Eyes: Yes: WNL HENT: Yes: WNL Neck: Yes: WNL Cardiovascular: Yes: Tachycardia, Pulse Irregular Respiratory: Yes: Regular Gastrointestinal: Yes: Soft ...Rectal Exam: Yes: Deferred Genitourinary: No: Anuria Breast(s): Yes: WNL Musculoskeletal: Yes: Joint Swelling Extremities: Yes: Cool Edema: Yes Edema: LLE: 2+, RLE: 2+ Peripheral Pulses WNL: Yes Integumentary: Yes: Venous Stasis Changes, Other (varicose veins cornelius LEs) Neurological: Yes: WNL Psychiatric: Yes: WNL Labs: CBC, BMP 04/18/17 05:05 04/18/17 05:05 INR, PTT INR 2.22 (0.82-1.09) H D 04/18/17 05:05 Fibrinogen 236.0 mg/dL (238-498) L 04/18/17 05:05 Abnormal Lab Results 04/18/17 04/18/17 04/18/17 05:05 05:05 05:05 MCHC 31.3 L RDW 17.5 H Neutrophils % 86.7 H Lymphocytes % 5.4 L D PT with INR 25.10 H INR 2.22 H D Fibrinogen BUN 40 H Creatinine 1.4 H Calcium 7.5 L Total Bilirubin 2.5 H Alkaline Phosphatase 126 H Total Protein 5.3 L Albumin 2.6 L 04/18/17 05:05 MCHC RDW Neutrophils % Lymphocytes % PT with INR INR Fibrinogen 236.0 L BUN Creatinine Calcium Total Bilirubin Alkaline Phosphatase Total Protein Albumin Problem List - Problems (1) Atrial fibrillation with RVR Assessment/Plan: On amiodarone; will plan to decrease to 400 mg bid after a week on the present loading regimen. Will decrease metoprolol tartrate dose now to 50 mg because of borderline low BP (though asymptomatic, and no orthostatic changes). Will attempt to continue a total of 200 mg daily, given significant LV dysfunction. HR initially in 160s bpm; now 100-115 bpm. INR has decreased to 2.22 after Vitamin K. Workup for etiology of elevated INR noted; appreciate airplane pilot commercial's input. Will likely be started on warfarin ultimately. Code(s): I48.91 - UNSPECIFIED ATRIAL FIBRILLATION (2) Acute on chronic systolic and diastolic heart failure, NYHA class 2 Assessment/Plan: On amiodarone and metoprolol. PRoblematic giving other agents (e.g. ACEI, RAAS, hydralazine + isordil) at the present time due to renal insufficiency and relative hypotension. Signs of CHF (JVD; dyspnea on minimal exertion; ?PND). ECHO: significant LV dysfunction. F/u CXR (initial noted infiltrate, pleural effusion). IV furosemide 20 mg may be used; f/u BP (relatively low values not unexpected with severe LV dysfunction; pt is also on beta blockers); no orthstatic changes presently. F/u BUn/Cr, electrolytes, Is and Os, daily weight. Code(s): I50.43 - ACUTE ON CHRONIC COMBINED SYSTOLIC AND DIASTOLIC HRT FAIL (3) CAD (coronary artery disease) Code(s): I25.10 - ATHSCL HEART DISEASE OF [place] CORONARY ARTERY W/O ANG PCTRS (4) Hypothyroid Assessment/Plan: elevated TSH; f/u Free T3 and free T4. Code(s): E03.9 - HYPOTHYROIDISM, UNSPECIFIED (5) Renal insufficiency Assessment/Plan: f/u carefully (on furosemide for acute CHF); avoid excessive dehydration. Code(s): N28.9 - DISORDER OF KIDNEY AND URETER, UNSPECIFIED
[2017-04-18] MEDS ORDERED: METOPROLOL TARTRATE 50 MG TABLET (FP) PO ONE (14:00)
[2017-04-18 15:22] LABS: MAGNESIUM 2.5 mg/dL (1.8-2.4)
--- NOTE | 2017-04-18 15:43 | PN ---
Teaching Attending Note Name of Resident: Luisito Steele ATTENDING PHYSICIAN STATEMENT Time of evaluation: 12:10 PM I saw and evaluated the patient. I reviewed the resident's note and discussed the case with the resident. I agree with the resident's findings and plan as documented. SUBJECTIVE: Patient seen and examined. no complaints. No chest pain, palpitations, dizziness , dyspnea. ambulated with PT. tearful as reporting that her son yesterday. OBJECTIVE: Vital Signs Period Temp Pulse Resp BP Sys/Gandara Pulse Ox Last 24 Hr 97.0 F-97.8 F 101-112 18-20 90-115/58-82 96-97 Intake & Output 04/15/17 04/16/17 04/17/17 04/18/17 23:59 23:59 23:59 23:59 Intake Total 110 350 310 Balance 110 350 310 Weight 101 lb 9.6 oz 103 lb 9.6 oz 104 lb 3.2 oz 103 lb general: sitting in bed in no acute distress neck: positive JVD, neck vein distension CVS:S1S2 irregular,rapid Chest: bibasilar rales Abdomen: soft, NT, ND, no RUQ tenderness Extremities: 2+ pedal pitting edema. Home Medication List Medication Instructions Recorded Confirmed Type Lisinopril [Zestril] 2.5 mg PO DAILY 03/13/16 04/14/17 History Levothyroxine [Synthroid -] 75 mcg PO DAILY@0700 04/14/17 04/14/17 History Metoprolol Tartrate 25 mg PO DAILY 04/18/17 04/18/17 History Omeprazole 40 mg PO DAILY 04/18/17 04/18/17 History Potassium Citrate [Potassium 20 meq PO DAILY 04/18/17 04/18/17 History Citrate ER] Active Medications Generic Name Dose Route Start Last Admin Trade Name Freq PRN Reason Stop Dose Admin Amiodarone HCl 400 mg 04/14/17 22:00 04/18/17 14:03 Cordarone - PO 400 mg TID SIMON Administration Levothyroxine Sodium 75 mcg 04/15/17 07:00 04/18/17 06:55 Synthroid - PO 75 mcg DAILY@0700 SIMON Administration Metoprolol Tartrate 100 mg 04/14/17 22:00 04/18/17 09:14 Lopressor - PO Not Given BID SIMON Phytonadione 5 mg 04/17/17 20:45 04/18/17 12:52 Aqua Mephyton Injection - SQ 04/20/17 20:44 5 mg DAILY SIMON Administration Laboratory Results - last 24 hr 04/18/17 04/18/17 04/18/17 05:05 05:05 05:05 WBC 9.4 RBC 4.62 Hgb 12.7 Hct 40.5 MCV 87.8 MCH 27.5 MCHC 31.3 L RDW 17.5 H Plt Count 151 MPV 9.3 Neutrophils % 86.7 H Lymphocytes % 5.4 L D Monocytes % 7.7 Eosinophils % 0.1 Basophils % 0.1 PT with INR 25.10 H INR 2.22 H D PTT (Actin FS) Fibrinogen Sodium 138 Potassium 4.7 Chloride 105 Carbon Dioxide 24 Anion Gap 9 BUN 40 H Creatinine 1.4 H Creat Clearance w eGFR 35.82 Random Glucose 85 Calcium 7.5 L Magnesium 2.5 H Total Bilirubin 2.5 H AST 31 ALT 37 Alkaline Phosphatase 126 H Total Protein 5.3 L Albumin 2.6 L Free T4 1.81 H 04/18/17 04/18/17 04/18/17 05:05 13:55 13:55 WBC RBC Hgb Hct MCV MCH MCHC RDW Plt Count MPV Neutrophils % Lymphocytes % Monocytes % Eosinophils % Basophils % PT with INR INR PTT (Actin FS) 29.2 Fibrinogen 236.0 L Sodium Potassium Chloride Carbon Dioxide Anion Gap BUN Creatinine Creat Clearance w eGFR Random Glucose Calcium Magnesium Cancelled Total Bilirubin AST ALT Alkaline Phosphatase Total Protein Albumin Free T4 Cancelled Microbiology 04/15/17 04:30 Nasopharyngeal Swab Influenza Types A,B Antigen (SÁNCHEZ) - Final 04/15/17 04:30 Nasopharyngeal Swab - Final ASSESSMENT AND PLAN: 86yo F with PMH AFib on xarelto, CAD s/p stents, hypothyroid, Systolic CHF, dyslipidemia sent to the ER by her food quality tester for afib with RVR -Afib with RVR -Acute Systolic Heart failure exacerbation -Coagulopathy, elevated INR -Hypothyoridism -SELMA, prerenal likely from CHF Plan: discussed with Dr. Haddad. recommend not holding metoprolol unless SBP <85- 90 as likely from her poor EF. Continue lopressor and amiodarone. No plan for cardioversion given patient asymptomatic and HR improved. INR trended down, hematology input noted. PLan for coumadin ultimately per cards. Vitamin K day 2/3. Monitor renal function. Repeat CXR. Lasix IV with caution while watching BP DVTPPx elevated INR PT eval noted. PLan for home d/c [place] with services when clinically improved.
[2017-04-18] MEDS ORDERED: ACETAMINOPHEN 325 MG TABLET (FP) PO PRN (16:54)
[2017-04-18] MEDS ORDERED: FUROSEMIDE 40 MG/4 ML INJECTABLE VIAL IVPUSH ONE (19:23)
[2017-04-18] MEDS: MELATONIN 5 MG TABLETS PO PRN (22:34)
--- NOTE | 2017-04-19 06:11 | PN ---
Physical Exam: SUBJECTIVE: Patient seen and examined by me this Am - Complaining of epigastric fullness/pain yesterday. ordered for tylenol, KUB. No pain overnight. Pt denies any BAUER, fever/chills, CP, SOB, N/V, abdominal pain. Still with mild dry cough. - Per daughter, pt waxing and waning MS during admission w/ large emotional variance, stating that her son on Monday and that she was missing the . This was later confirmed to be a delusion. OBJECTIVE: Vital Signs Intake & Output 04/16/17 04/17/17 04/18/17 04/19/17 23:59 23:59 23:59 23:59 Intake Total 350 310 150 Output Total 200 Balance 350 310 -50 Weight 46.992 kg 47.264 kg 46.72 kg Period Temp Pulse Resp BP Sys/Gandara Pulse Ox Last 24 Hr 97.6 F-98.6 F 101-122 20-20 90-112/58-69 95-97 GENERAL: Elderly, malaysian speaking woman in [facility]. Awake, alert, and fully oriented. HEAD: Normal with no signs of trauma. EYES: Pupils equal, round and reactive to light, extraocular movements intact, sclera anicteric, conjunctiva clear. No lid lag. EARS, NOSE, THROAT: Ears normal, nares patent, oropharynx clear without exudates. Moist mucous membranes. NECK: +JVD. Normal range of motion, supple without lymphadenopathy, or masses. LUNGS: Decreased breath sounds at bases, bibasilar rales. No wheezes, and no crackles. No accessory muscle use. HEART: Irregularly Irregular, normal S1 and S2 without murmur, rub or gallop. ABDOMEN: Soft, nontender, not distended, normoactive bowel sounds, no guarding, no rebound, no masses. No hepatomegaly or splenomegaly. MUSCULOSKELETAL: Normal range of motion at all joints. No bony deformities or tenderness. No CVA tenderness. UPPER EXTREMITIES: 2+ pulses, warm, well-perfused. No cyanosis. No clubbing. No peripheral edema. LOWER EXTREMITIES: 2 + pitting edema BL to knees still. 2+ pulses, warm, well- perfused. No calf tenderness. Still with BL superficial varicose veins/spider angiomas on anterior shins. NEUROLOGICAL: Cranial nerves II-XII intact. Normal speech. Normal gait. 5/5 strength in all extremities. Sensation to light touch preserved diffusely PSYCHIATRIC: Cooperative. Good eye contact. Appropriate mood and affect. SKIN: Warm, dry, normal turgor, no rashes or lesions noted, normal capillary refill. Laboratory Results - last 24 hr CBC, BMP CBC, BMP 04/19/17 06:55 04/18/17 05:05 04/18/17 05:05 04/18/17 04/18/17 04/18/17 05:05 05:05 05:05 WBC 9.4 RBC 4.62 Hgb 12.7 Hct 40.5 MCV 87.8 MCH 27.5 MCHC 31.3 L RDW 17.5 H Plt Count 151 MPV 9.3 Neutrophils % 86.7 H Lymphocytes % 5.4 L D Monocytes % 7.7 Eosinophils % 0.1 Basophils % 0.1 PT with INR 25.10 H INR 2.22 H D PTT (Actin FS) Fibrinogen Sodium 138 Potassium 4.7 Chloride 105 Carbon Dioxide 24 Anion Gap 9 BUN 40 H Creatinine 1.4 H Creat Clearance w eGFR 35.82 Random Glucose 85 Calcium 7.5 L Magnesium 2.5 H Total Bilirubin 2.5 H AST 31 ALT 37 Alkaline Phosphatase 126 H Total Protein 5.3 L Albumin 2.6 L Free T4 1.81 H 04/18/17 04/18/17 04/18/17 05:05 13:55 13:55 WBC RBC Hgb Hct MCV MCH MCHC RDW Plt Count MPV Neutrophils % Lymphocytes % Monocytes % Eosinophils % Basophils % PT with INR INR PTT (Actin FS) 29.2 Fibrinogen 236.0 L Sodium Potassium Chloride Carbon Dioxide Anion Gap BUN Creatinine Creat Clearance w eGFR Random Glucose Calcium Magnesium Cancelled Total Bilirubin AST ALT Alkaline Phosphatase Total Protein Albumin Free T4 Cancelled Active Medications Generic Name Dose Route Start Last Admin Trade Name Freq PRN Reason Stop Dose Admin Acetaminophen 325 mg 04/18/17 16:54 Tylenol - PO Q6H PRN PAIN LEVEL 1-5 Amiodarone HCl 400 mg 04/14/17 22:00 04/18/17 22:33 Cordarone - PO 400 mg TID SIMON Administration Levothyroxine Sodium 75 mcg 04/15/17 07:00 04/18/17 06:55 Synthroid - PO 75 mcg DAILY@0700 SIMON Administration Melatonin 5 mg 04/18/17 16:54 04/18/17 22:34 Melatonin PO 5 mg HS PRN Administration INSOMNIA Metoprolol Tartrate 100 mg 04/18/17 22:00 04/18/17 22:34 Lopressor - PO 100 mg BID SIMON Administration Phytonadione 5 mg 04/17/17 20:45 04/18/17 12:52 Aqua Mephyton Injection - SQ 04/20/17 20:44 5 mg DAILY SIMON Administration Microbiology 04/15/17 04:30 Nasopharyngeal Swab Influenza Types A,B Antigen (SÁNCHEZ) - Final 04/15/17 04:30 Nasopharyngeal Swab - Final Prior echo in 2016 -> pulm htn, severe TR, EF ~67%, dilated atria Echo 02/10 - LVEF reduced in setting of afib with RVR, moderate MR, moderate TR , RV pressure 40-50, LAE Persantine stress test 02/14 - relatively unremarkable with minimal ischemic changes. EKG 04/14 - Afib w/ RVR, no ST changes, TWI in lateral leads, Rate 164 CXR 04/14 - Cardiomegaly, mild congestion, BL pleural effusions ABdominal U/S 04/16 - R pleural effusion; fatty infiltrates of liver; atrophic kidneys with no evidence of hydronephrosis EKG 04/17 - Afib w/ RVR. rate 110, NAD, QTC 446 CXR 04/18 - no change CT head 04/19 - no acute bleed or mass effect; mild atropy ASSESSMENT/PLAN: 86 yo F w/ h/o CAD w/ stents, afib on xarelto, HFpEF (EF 67.8%, 2016) and HLD who was sent from her shot hole shooter's office to ED due to office EKG notable for Afib with RVR w/ rate in 160s. #Afib with RVR, HR in 100-120s today -c/w Amiodarone 400mg PO TID and Metoprolol 100mg PO BID -INR 1.7 today. Gave one dose of Xarelto 15mg in PM - Plan for coumadin/heparin bridging vs. xarelto per cardiology for AC; will f/ u with cards #acute on chronic systolic CHF -daily weights, I&O's -Metoprolol 100mg BID - Gave Lasix 20mg IV yesterday in PM due to congestion on CXR; Gave another 20 mg IV this AM #AMS - pt w/ waxing/waning MS - CT head negative for bleed; mild diffuse atrophy - Monitor mental status; continue to reorient #Hyperkalemia - 5.5 today - Gave 1 dose of kayexylate; f/u K 3.8 on PM BMP - Daily BMPs #SELMA- Cr 1.8 AM today->1.8 in PM - Trend Cr - Daily BMPs - Gentle diuresis #HTN -currently hypotensive -hold lisinopril and continue other meds with close BP monitoring #supratherapeutic INR, Abd U/S wnl - possibly 2/2 congestive hepatopathy -Heme consulted. Appreciate recommendations -One dose xarelto today - INR 1.7 today - Vit K Day 3/ #hypothyroidism - c/w Synthroid 75 mcg qd #DVT PPX Xarelto #FEN: PO hydration Daily BMP Na controlled diet PT eval - 85 feet w/ walker on 04/17 Full code Dispo: Telemetry Plan d/w attending, Dr. Leeroy Steele, PGY1 Visit type - Emergency Visit Emergency Visit: Yes ED Registration Date: 04/14/17 Care time: The patient presented to the Emergency Department on the above date and was hospitalized for further evaluation of their emergent condition. - New Patient This patient is new to me today: No - Critical Care Critical Care patient: No
[2017-04-19] MEDS: AMIODARONE HCL 200 MG TABLET (FP) PO SCH ×3 (06:41→21:34)
[2017-04-19] MEDS: LEVOTHYROXINE NA 75 MCG TABLET (FP) PO SCH (06:41)
[2017-04-19 07:22] LABS: HEMATOCRIT 44.1 % (32.4-45.2); HEMOGLOBIN 13.6 GM/dL (10.7-15.3); MCH 27.6 pg (25.7-33.7); MCHC 30.8 g/dl (32.0-36.0); MEAN CELL VOLUME 89.6 fl (80-96); MEAN PLT VOLUME 9.3 fl (7.5-11.1); PLATELET COUNT 156 K/MM3 (134-434); RBC 4.92 M/mm3 (3.60-5.2); RDW 17.6 % (11.6-15.6); WHITE BLOOD COUNT 10.1 K/mm3 (4.0-10.0)
[2017-04-19 07:34] LABS: INR 1.7 (0.82-1.09); PROTHROMBIN TIME (PATIENT) 19.2 SEC (9.98-11.88)
[2017-04-19 07:49] LABS: CHLORIDE 103 mmol/L (98-107); POTASSIUM 5.5 mmol/L (3.5-5.1); SODIUM 137 mmol/L (136-145)
[2017-04-19 08:01] LABS: ALBUMIN 2.8 g/dl (3.4-5.0); ALK PHOS 187 U/L (45-117); ANION GAP 13 (8-16); BILIRUBIN,TOTAL 3.2 mg/dL (0.2-1.0); BLOOD UREA NITROGEN 46 mg/dL (7-18); CALCIUM 8.8 mg/dL (8.5-10.1); CO2 21 mmol/L (21-32); CREATININE 1.8 mg/dL (0.55-1.02); GLUCOSE,RANDOM 106 mg/dL (74-106); SGOT/AST 90 U/L (15-37); SGPT/ALT 68 U/L (12-78); TOT PROT 5.9 g/dl (6.4-8.2)
[2017-04-19] MEDS: PHYTONADIONE 10 MG/1 ML AMP SQ SCH (09:28)
[2017-04-19] MEDS: METOPROLOL TARTRATE 50 MG TABLET (FP) PO SCH ×2 (09:30→21:34)
[2017-04-19] MEDS ORDERED: FUROSEMIDE 40 MG/4 ML INJECTABLE VIAL IVPUSH ONE (09:37)
--- NOTE | 2017-04-19 11:08 | PN ---
Progress Note, Physician History of Present Illness: "Patient is an 86 year old female with a significant past medical history of CAD w/ stents, afib on xarelto, HFpEF (EF 67.8%, 2016) and HLD who presents to the ED for tachycardia. Patient was seen in cardiology clinic today and was found on EKG to be in afib with RVR with a rate of 160. She was subsequently sent to ER for management. Patient currently has no complaints or pain while in the ED. Denies ever having CP/SOB/palpitations. Denies F/C/N/V/D. Reports compliance with all of her medications. Patient presented to the office Off amiodarone and with reduced dose of bb. 2 weeks h/o of decompensated chf rx with increased dose of lasix. yesterday vissiting nurse noted pulse 160's, ems called, confirmed, patient refused admission to hospital yesterday. Today in my office she presented asymptomatic with +3 lower extremity edema and AF with RVR 167 bpm. PMH ASHD s/p PTCA SANNA mLAD PTCA D2 2007 Atrial fibrillation HHD HTN Positive MIBI in the past refused repeated c. cath - Current Medication List Current Medications: Active Medications Acetaminophen (Tylenol -) 325 mg PO Q6H PRN PRN Reason: PAIN LEVEL 1-5 Amiodarone HCl (Cordarone -) 400 mg PO TID [facility] Last Admin: 04/19/17 06:41 Dose: 400 mg Levothyroxine Sodium (Synthroid -) 75 mcg PO DAILY@0700 [facility] Last Admin: 04/19/17 06:41 Dose: 75 mcg Melatonin (Melatonin) 5 mg PO HS PRN PRN Reason: INSOMNIA Last Admin: 04/18/17 22:34 Dose: 5 mg Metoprolol Tartrate (Lopressor -) 100 mg PO BID [facility] Last Admin: 04/19/17 09:30 Dose: 100 mg Phytonadione (Aqua Mephyton Injection -) 5 mg SQ DAILY [facility] Stop: 04/20/17 20:44 Last Admin: 04/19/17 09:28 Dose: 5 mg - Objective Vital Signs: Vital Signs Temperature 98.9 F 04/19/17 10:00 Pulse Rate 129 H 04/19/17 10:00 Respiratory Rate 22 04/19/17 10:00 Blood Pressure 106/49 04/19/17 10:00 O2 Sat by Pulse Oximetry (%) 97 04/19/17 09:00 Eyes: Yes: WNL, Conjunctiva Clear, EOM Intact HENT: Yes: WNL, Atraumatic, Normocephalic Neck: Yes: WNL, Supple, Trachea Midline Cardiovascular: Yes: WNL, Tachycardia, Pulse Irregular Respiratory: Yes: WNL, Regular, CTA Bilaterally Gastrointestinal: Yes: WNL, Normal Bowel Sounds Genitourinary: Yes: WNL Musculoskeletal: Yes: WNL Extremities: Yes: WNL Edema: No Integumentary: Yes: WNL Neurological: Yes: WNL, Alert, Oriented ...Motor Strength: WNL Psychiatric: Yes: WNL Labs: CBC, BMP 04/19/17 06:55 04/19/17 06:55 INR, PTT INR 1.70 (0.82-1.09) H 04/19/17 06:55 Fibrinogen 236.0 mg/dL (238-498) L 04/18/17 05:05 Problem List - Problems (1) Acute on chronic systolic and diastolic heart failure, NYHA class 2 Code(s): I50.43 - ACUTE ON CHRONIC COMBINED SYSTOLIC AND DIASTOLIC HRT FAIL (2) CAD (coronary artery disease) Code(s): I25.10 - ATHSCL HEART DISEASE OF [place] CORONARY ARTERY W/O ANG PCTRS (3) Dizziness Code(s): R42 - DIZZINESS AND GIDDINESS (4) Afib Code(s): I48.91 - UNSPECIFIED ATRIAL FIBRILLATION (5) CHF (congestive heart failure) Code(s): I50.9 - HEART FAILURE, UNSPECIFIED Assessment/Plan Afib better controlled 100-125 -cont Amiodarone po loading with 400mg tid for now reduce to BID tomorrow -cont Lopressor -hold Lisinopril -cont Xarelto hematology input appreciated Acute on chronic diastolic CHF-maybe secondary to AFib with RVR -was on IV Lasix but BP running low normal -resume Lasix once BP tolerates -HR control as above CAD-abnl stress test in the past, refused cath -being considered further for cardiac cath but has refused in the past
--- NOTE | 2017-04-19 11:49 | EKG ---
Test Reason : Blood Pressure : / mmHG Vent. Rate : 106 BPM Atrial Rate : 093 BPM P-R Int : 000 ms QRS Dur : 084 ms QT Int : 354 ms P-R-T Axes : 000 -45 237 degrees QTc Int : 470 ms ATRIAL FIBRILLATION WITH RAPID VENTRICULAR RESPONSE LEFT AXIS DEVIATION ABNORMAL ECG WHEN COMPARED WITH ECG OF 17-APR-2017 08:34, NO SIGNIFICANT CHANGE WAS FOUND Confirmed by LUKE CHRISTENSEN, JERRY ([id number]) on 04/19/2017 11:48:53 AM Referred By: Melissa ALMONTE Confirmed By:JERRY BUTLER MD
[2017-04-19] MEDS ORDERED: ACETAMINOPHEN 325 MG TABLET (FP) PO ONE (12:45)
--- NOTE | 2017-04-19 12:52 | PN ---
Teaching Attending Note Name of Resident: Liusito Steele ATTENDING PHYSICIAN STATEMENT Time of evaluation: 11:15 AM I saw and evaluated the patient. I reviewed the resident's note and discussed the case with the resident. I agree with the resident's findings and plan as documented. SUBJECTIVE: patient seen and examined. sleeping, arousable, denies any headache, dyspnea, chest pain, palpitations, dizziness currently. OBJECTIVE: Vital Signs Period Temp Pulse Resp BP Sys/Gandara Pulse Ox Last 24 Hr 97.6 F-98.9 F 101-129 20-24 92-128/49-95 95-97 Intake & Output 04/16/17 04/17/17 04/18/17 04/19/17 23:59 23:59 23:59 23:59 Intake Total 350 310 150 30 Output Total 200 Balance 350 310 -50 30 Weight 103 lb 9.6 oz 104 lb 3.2 oz 103 lb 103 lb 12.8 oz General: lying in bed, no acute distress Neck: post JVD Chest: poor effort, few basilar rales Abdomen: soft, NT throughout, ND, positive bowel sounds extremities: unchanged 2+ pedal pitting edema Neuro AA oriented to self, place, facial symmetry, moves all extremities symmetrically, PERRLA, EOMI, further exam limited Home Medication List Medication Instructions Recorded Confirmed Type Lisinopril [Zestril] 2.5 mg PO DAILY 03/13/16 04/14/17 History Levothyroxine [Synthroid -] 75 mcg PO DAILY@0700 04/14/17 04/14/17 History Metoprolol Tartrate 25 mg PO DAILY 04/18/17 04/18/17 History Omeprazole 40 mg PO DAILY 04/18/17 04/18/17 History Potassium Citrate [Potassium 20 meq PO DAILY 04/18/17 04/18/17 History Citrate ER] Active Medications Generic Name Dose Route Start Last Admin Trade Name Freq PRN Reason Stop Dose Admin Acetaminophen 325 mg 04/18/17 16:54 Tylenol - PO Q6H PRN PAIN LEVEL 1-5 Amiodarone HCl 400 mg 04/14/17 22:00 04/19/17 06:41 Cordarone - PO 400 mg TID SIMON Administration Levothyroxine Sodium 75 mcg 04/15/17 07:00 04/19/17 06:41 Synthroid - PO 75 mcg DAILY@0700 SIMON Administration Melatonin 5 mg 04/18/17 16:54 04/18/17 22:34 Melatonin PO 5 mg HS PRN Administration INSOMNIA Metoprolol Tartrate 100 mg 04/18/17 22:00 04/19/17 09:30 Lopressor - PO 100 mg BID SIMON Administration Phytonadione 5 mg 04/17/17 20:45 04/19/17 09:28 Aqua Mephyton Injection - SQ 04/20/17 20:44 5 mg DAILY SIMON Administration Laboratory Results - last 24 hr 04/18/17 04/18/17 04/18/17 05:05 13:55 13:55 WBC RBC Hgb Hct MCV MCH MCHC RDW Plt Count MPV PT with INR INR Sodium 138 Potassium 4.7 Chloride 105 Carbon Dioxide 24 Anion Gap 9 BUN 40 H Creatinine 1.4 H Creat Clearance w eGFR 35.82 Random Glucose 85 Calcium 7.5 L Magnesium 2.5 H Cancelled Total Bilirubin 2.5 H AST 31 ALT 37 Alkaline Phosphatase 126 H Total Protein 5.3 L Albumin 2.6 L Free T4 1.81 H Cancelled 04/19/17 04/19/17 04/19/17 06:55 06:55 06:55 WBC 10.1 H RBC 4.92 Hgb 13.6 Hct 44.1 MCV 89.6 MCH 27.6 MCHC 30.8 L RDW 17.6 H Plt Count 156 MPV 9.3 PT with INR 19.20 H INR 1.70 H Sodium 137 Potassium 5.5 H Chloride 103 Carbon Dioxide 21 Anion Gap 13 BUN 46 H Creatinine 1.8 H Creat Clearance w eGFR 26.81 Random Glucose 106 Calcium 8.8 Magnesium Total Bilirubin 3.2 H D AST 90 H ALT 68 Alkaline Phosphatase 187 H Total Protein 5.9 L Albumin 2.8 L Free T4 CXR - unchanged vascular congestion and pleural effusion. EKG: Afib, no acute ST-T changes, no peaked T waves ASSESSMENT AND PLAN: 86yo F with PMH AFib on xarelto, CAD s/p stents, hypothyroid, Systolic CHF, dyslipidemia sent to the ER by her material manager for afib with RVR -Afib with RVR -Acute Systolic Heart failure exacerbation -Coagulopathy, elevated INR -Abnormal LFTs, likely congestive hepatopathy -Hypothyoridism -SELMA, prerenal likely from CKD on her CKD (from poor EF) -Asymptomatic Hypotension, partly from tachycardia, partly from her poor EF and forward flow -Intermittent hallucinations/delusions, Suspect delirium in the setting of mild underlying dementia Plan: Cardiology input appreciated. Paged Dr. Andino to discuss anticoagulation, ?Xarelto vs heparin/coumadin bridging as noted in heme recs. Amiodarone loading, metoprolol with lower holding parameters. Suspect worsening renal/hepatic function from CHF. Lasix 20 mg IV x 1,. Kayexalate x 1. Repeat BMP this afternoon. Vitamin K day 05/20. INR 1.[address] brain given intermittent confusion with hallucinations, though suspect delirium in the setting of current illness, low suspicion for neurological process. DVTPPX address full dose anticoagulation as above. PT eval noted. [facility] clinically [facility]. Discussed with daughter in detail, all questions answered. Addressed with her, patient has been on coumadin in the past and aware of risks/ benefits and need for follow up and agreable to resuming coumadin if deemed appropriate.
[2017-04-19] MEDS ORDERED: SODIUM POLYSTYRENE SULFONATE 15 GM/60 ML BOTTLE PO ONE (13:04)
[2017-04-19] MEDS ORDERED: RIVAROXABAN 15 MG TABLET PO ONE (17:30)
[2017-04-19 19:22] LABS: ANION GAP 10 (8-16); BLOOD UREA NITROGEN 47 mg/dL (7-18); CALCIUM 7.7 mg/dL (8.5-10.1); CHLORIDE 104 mmol/L (98-107); CO2 26 mmol/L (21-32); CREATININE 1.8 mg/dL (0.55-1.02); GLUCOSE,RANDOM 137 mg/dL (74-106); POTASSIUM 3.8 mmol/L (3.5-5.1); SODIUM 140 mmol/L (136-145)
[2017-04-19] MEDS ORDERED: PT OWN MED DRAWER 7, Y5N ONE (23:03)
[2017-04-19] MEDS: MELATONIN 5 MG TABLETS PO PRN (23:05)
--- NOTE | 2017-04-20 05:38 | PN ---
Physical Exam: SUBJECTIVE: Patient seen and examined by me this AM - Pt A&Ox2 overnight, intermittently confused and forgetful. Restless and tearful to nursing staff. Rate in 110-120s overnight. - Pt disoriented, A&Ox1 when seen by me. Very tremulous, warm to touch. States that she feels fine, however pt very agitated, disoriented. - K corrected 5.5 -> 3.8 w/ lasix, kayexylate. Cr stable at 1.8 - Spoke with Dr. Haddad in AM. Will hold off on diuretics during active sepsis, defer to heme for AC. Will forego coumadinization until sepsis picture resolves. OBJECTIVE: Vital Signs Intake & Output 04/17/17 04/18/17 04/19/17 04/20/17 23:59 23:59 23:59 23:59 Intake Total 310 150 150 Output Total 200 Balance 310 -50 150 Weight 47.264 kg 46.72 kg 47.083 kg Period Temp Pulse Resp BP Sys/Gandara Pulse Ox Last 24 Hr 98.2 F-99.3 F 104-139 19-24 104-136/42-95 97-97 GENERAL: Elderly woman in NAD. A&Ox1, very agitated, tremulous. Warm to touch. HEAD: Normal with no signs of trauma. EYES: Pupils equal, round and reactive to light, extraocular movements intact, sclera anicteric, conjunctiva clear. No lid lag. EARS, NOSE, THROAT: Ears normal, nares patent, oropharynx clear without exudates. Moist mucous membranes. NECK: Normal range of motion, supple without lymphadenopathy, or masses. LUNGS: Still with decreased breath sounds at bases, bibasilar rales. No wheezes and no crackles. No accessory muscle use. HEART: Irregularly Irregular, normal S1 and S2 without murmur, rub or gallop. ABDOMEN: Soft, nontender, not distended, normoactive bowel sounds, no guarding, no rebound, no masses. No hepatomegaly or splenomegaly. MUSCULOSKELETAL: Normal range of motion at all joints. No bony deformities or tenderness. No CVA tenderness. UPPER EXTREMITIES: 2+ pulses, warm, well-perfused. No cyanosis. No clubbing. No peripheral edema. LOWER EXTREMITIES: Still with 2 + pitting edema BL to knees still. 2+ pulses, warm, well-perfused. No calf tenderness. BL superficial varicose veins on anterior shins. NEUROLOGICAL: Cranial nerves II-XII intact. Normal speech. Normal gait. 5/5 strength in all extremities. Sensation to light touch preserved diffusely PSYCHIATRIC: Agitated. Poor eye contact. Appropriate mood and affect. SKIN: Warm, dry, normal turgor, no rashes or lesions noted, normal capillary refill. Laboratory Results - last 24 hr CBC, BMP 04/20/17 06:15 04/20/17 06:15 04/19/17 06:55 04/19/17 18:00 04/19/17 04/19/17 04/19/17 06:55 06:55 06:55 WBC 10.1 H RBC 4.92 Hgb 13.6 Hct 44.1 MCV 89.6 MCH 27.6 MCHC 30.8 L RDW 17.6 H Plt Count 156 MPV 9.3 PT with INR 19.20 H INR 1.70 H Sodium 137 Potassium 5.5 H Chloride 103 Carbon Dioxide 21 Anion Gap 13 BUN 46 H Creatinine 1.8 H Creat Clearance w eGFR 26.81 POC Glucometer Random Glucose 106 Calcium 8.8 Total Bilirubin 3.2 H D AST 90 H ALT 68 Alkaline Phosphatase 187 H Total Protein 5.9 L Albumin 2.8 L 04/19/17 04/19/17 16:40 18:00 WBC RBC Hgb Hct MCV MCH MCHC RDW Plt Count MPV PT with INR INR Sodium 140 Potassium 3.8 Chloride 104 Carbon Dioxide 26 Anion Gap 10 BUN 47 H Creatinine 1.8 H Creat Clearance w eGFR POC Glucometer 310 Random Glucose 137 H Calcium 7.7 L Total Bilirubin AST ALT Alkaline Phosphatase Total Protein Albumin Active Medications Generic Name Dose Route Start Last Admin Trade Name Freq PRN Reason Stop Dose Admin Acetaminophen 325 mg 04/18/17 16:54 Tylenol - PO Q6H PRN PAIN LEVEL 1-5 Amiodarone HCl 400 mg 04/14/17 22:00 04/19/17 21:34 Cordarone - PO 400 mg TID SIMON Administration Levothyroxine Sodium 75 mcg 04/15/17 07:00 04/19/17 06:41 Synthroid - PO 75 mcg DAILY@0700 SIMON Administration Melatonin 5 mg 04/18/17 16:54 04/19/17 23:05 Melatonin PO 5 mg HS PRN Administration INSOMNIA Metoprolol Tartrate 100 mg 04/18/17 22:00 04/19/17 21:34 Lopressor - PO 100 mg BID SIMON Administration Phytonadione 5 mg 04/17/17 20:45 04/19/17 09:28 Aqua Mephyton Injection - SQ 04/20/17 20:44 5 mg DAILY SIMON Administration Microbiology 04/18/17 08:00 Blood - Peripheral Venous Blood Culture - Preliminary NO GROWTH OBTAINED AFTER 24 HOURS, INCUBATION TO CONTINUE FOR 4 DAYS. 04/18/17 08:00 Blood - Peripheral Venous Blood Culture - Preliminary NO GROWTH OBTAINED AFTER 24 HOURS, INCUBATION TO CONTINUE FOR 4 DAYS. 04/15/17 04:30 Nasopharyngeal Swab Influenza Types A,B Antigen (SÁNCHEZ) - Final 04/15/17 04:30 Nasopharyngeal Swab - Final Prior echo in 2015 -> pulm htn, severe TR, EF ~67%, dilated atria Echo 02/10 - LVEF reduced in setting of afib with RVR, moderate MR, moderate TR , RV pressure 40-50, LAE Persantine stress test 02/14 - relatively unremarkable with minimal ischemic changes. EKG 04/14 - Afib w/ RVR, no ST changes, TWI in lateral leads, Rate 164 CXR 04/14 - Cardiomegaly, mild congestion, BL pleural effusions ABdominal U/S 04/16 - R pleural effusion; fatty infiltrates of liver; atrophic kidneys with no evidence of hydronephrosis EKG 04/17 - Afib w/ RVR. rate 110, NAD, QTC 446 CXR 04/18 - no change CT head 04/19 - no acute bleed or mass effect; mild atropy EKG 04/19 - Afib/flutter, rate of 106, NAD, QTC 470, no TW changes CXR 04/20 - Right pleural effusion with compressive atelectasis. Elevated left diaphragm. Questionable left pleural effusion. 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 #Sepsis secondary to unknown source complicated by acute hypoxic respiratory failure - F/u cultures - empiric abx - given one dose of vanc, zosyn - ID consult - trend WBC, fever - Gentle hydration - Bolus 250ml NS in AM - Transfer to ICU - Vitals Q2H - ABG on transfer [id number] on NRB; pt with respiratory alkalosis due to tachypnea - Lactic acid 2.7; trend - UA negative - O2 support as needed #Afib with RVR, HR in 100-130s today - INR 5.13 this AM -c/w Amiodarone 400mg PO TID and Metoprolol 100mg PO BID -Gave one dose of Xarelto 15mg yesterday. - Plan for coumadin/heparin bridging vs. xarelto per cardiology for AC after sepsis resolves #acute on chronic systolic CHF - daily weights, I&O's - Metoprolol 100mg BID - Received one dose of lasix yesterday 20mg IV; hold in setting of hypotension this AM w/ sepsis #AMS - pt w/ waxing/waning MS - likely secondary to active infection - CT head negative for bleed; mild diffuse atrophy - Monitor mental status; continue to reorient #Hyperkalemia - 3.4 today - trend K; replete as needed - Daily BMPs #SELMA- Cr improving, 1.8 -> 1.5 today - Trend Cr - Daily BMPs - IVFs #HTN -currently hypotensive -hold lisinopril and continue other meds with close BP monitoring #supratherapeutic INR, Abd U/S wnl - possibly 2/2 congestive hepatopathy -Heme consulted. Appreciate recommendations -Hold AC in setting of sepsis, elevated INR - Finished 3 day course of Vit K #hypothyroidism - c/w Synthroid 75 mcg qd #DVT PPX Xarelto when sepsis resolves #FEN: PO hydration Daily BMP Na controlled diet PT eval - 85 feet w/ walker on 04/17 Full code Transfer to ICU for further stabilizing and management Plan d/w attending, Dr. Leeryo Steele, PGY1 Visit type - Emergency Visit Emergency Visit: Yes ED Registration Date: 04/14/17 Care time: The patient presented to the Emergency Department on the above date and was hospitalized for further evaluation of their emergent condition. - New Patient This patient is new to me today: No - Critical Care Critical Care patient: No
[2017-04-20] MEDS: LEVOTHYROXINE NA 75 MCG TABLET (FP) PO SCH (06:11)
[2017-04-20] MEDS: AMIODARONE HCL 200 MG TABLET (FP) PO SCH ×3 (06:11→21:58)
[2017-04-20 06:49] LABS: HEMATOCRIT 39.2 % (32.4-45.2); HEMOGLOBIN 12.3 GM/dL (10.7-15.3); MCH 27.1 pg (25.7-33.7); MCHC 31.2 g/dl (32.0-36.0); MEAN CELL VOLUME 86.8 fl (80-96); MEAN PLT VOLUME 8.8 fl (7.5-11.1); PLATELET COUNT 135 K/MM3 (134-434); RBC 4.52 M/mm3 (3.60-5.2); RDW 17.5 % (11.6-15.6); WHITE BLOOD COUNT 13.9 K/mm3 (4.0-10.0)
--- NOTE | 2017-04-20 06:54 | PN ---
Progress Note, Physician Chief Complaint: Pt is trembling; c/o feeling cold. Reportedly was confused yesterday.Feels hot to touch. Rectal temp 102.9. History of Present Illness: Patient is an 86 year old female with a significant past medical history of CAD w/ stents, afib on xarelto, HFpEF (EF 67.8%, 2016) and HLD who presents to the ED for tachycardia. Patient was seen in cardiology clinic today and was found on EKG to be in afib with RVR with a rate of 160. She was subsequently sent to ER for management. Patient currently has no complaints or pain while in the ED. Denies ever having CP/SOB/palpitations. Denies F/C/N/V/D. Reports compliance with all of her medications. Allergies: None Social history: Lives with daughter. No smoking. No alcohol. No illicit drugs. Surgical history: None PMD: Dr Parrish. Child Care Nurse: Dr. Andino " - Current Medication List Current Medications: Active Medications Acetaminophen (Tylenol -) 325 mg PO Q6H PRN PRN Reason: PAIN LEVEL 1-5 Amiodarone HCl (Cordarone -) 400 mg PO TID [facility] Last Admin: 04/20/17 06:11 Dose: 400 mg Levothyroxine Sodium (Synthroid -) 75 mcg PO DAILY@0700 [facility] Last Admin: 04/20/17 06:11 Dose: 75 mcg Melatonin (Melatonin) 5 mg PO HS PRN PRN Reason: INSOMNIA Last Admin: 04/19/17 23:05 Dose: 5 mg Metoprolol Tartrate (Lopressor -) 100 mg PO BID [facility] Last Admin: 04/19/17 21:34 Dose: 100 mg Phytonadione (Aqua Mephyton Injection -) 5 mg SQ DAILY [facility] Stop: 04/20/17 20:44 Last Admin: 04/19/17 09:28 Dose: 5 mg - Objective Vital Signs: Vital Signs Temperature 98.1 F 04/20/17 05:39 Pulse Rate 126 H 04/20/17 05:39 Respiratory Rate 20 04/20/17 05:39 Blood Pressure 120/70 04/20/17 05:39 O2 Sat by Pulse Oximetry (%) 97 04/19/17 21:00 Constitutional: Yes: Thin Eyes: Yes: WNL HENT: Yes: WNL Neck: Yes: Other Cardiovascular: Yes: Tachycardia, Pulse Irregular Respiratory: Yes: Diminished Gastrointestinal: Yes: Soft Genitourinary: No: Anuria Musculoskeletal: Yes: Muscle Weakness Extremities: Yes: Cold (both feet) Edema: Yes Edema: LLE: 2+, RLE: 2+ Peripheral Pulses WNL: No Peripheral Pulses: Left Doralis Pedis: 1+, Right Dorsalis Pedis: 1+ Integumentary: Yes: Venous Stasis Changes Neurological: Yes: Confusion Psychiatric: Yes: Other Labs: INR, PTT INR 1.70 (0.82-1.09) H 04/19/17 06:55 Fibrinogen 236.0 mg/dL (238-498) L 04/18/17 05:05 Abnormal Lab Results 04/19/17 04/19/17 04/19/17 06:55 06:55 06:55 WBC 10.1 H MCHC 30.8 L RDW 17.6 H PT with INR 19.20 H INR 1.70 H Potassium 5.5 H BUN 46 H Creatinine 1.8 H Random Glucose Calcium Total Bilirubin 3.2 H D AST 90 H Alkaline Phosphatase 187 H Total Protein 5.9 L Albumin 2.8 L 04/19/17 18:00 WBC MCHC RDW PT with INR INR Potassium BUN 47 H Creatinine 1.8 H Random Glucose 137 H Calcium 7.7 L Total Bilirubin AST Alkaline Phosphatase Total Protein Albumin Problem List - Problems (1) Atrial fibrillation with RVR Assessment/Plan: On amiodarone; decrease to 400 mg bid today. HR initially in 160s bpm; now 100-115 bpm ((though increasing this morning-- noted febrile). INR has decreased to 1.7. As noted by astronomy teacher, baseline coagulopathy with liver dysfunction from congestion would make warfarin a safer choice for long-term anticoaguation for AF. However, take pt's present sepsis into consideration before starting warfarin; IV heparin, or Lovenox, may be safer for now. Code(s): I48.91 - UNSPECIFIED ATRIAL FIBRILLATION (2) Acute on chronic systolic and diastolic heart failure, NYHA class 2 Assessment/Plan: On amiodarone and metoprolol. Problematic giving other agents (e.g. ACEI, RAAS, hydralazine + isordil) at the present time due to renal insufficiency and relative hypotension. ECHO: significant LV dysfunction. F/u CXR today showed no significant change from initial CXR (infiltrate, pleural effusion) F/u BUn/Cr, electrolytes, Is and Os, daily weight. Code(s): I50.43 - ACUTE ON CHRONIC COMBINED SYSTOLIC AND DIASTOLIC HRT FAIL (3) CAD (coronary artery disease) Code(s): I25.10 - ATHSCL HEART DISEASE OF [place] CORONARY ARTERY W/O ANG PCTRS (4) Hypothyroid Assessment/Plan: elevated TSH; free T4 is also mildly elevated. Following thryoid function is especially important when on amiodarone. Code(s): E03.9 - HYPOTHYROIDISM, UNSPECIFIED (5) Renal insufficiency Assessment/Plan: f/u carefully (on furosemide for acute CHF); avoid excessive dehydration. Code(s): N28.9 - DISORDER OF KIDNEY AND URETER, UNSPECIFIED (6) Fever Assessment/Plan: Rectal temp 102.9; trembling, confused. Culture, start antipyretics and antibiotics. Hold furosemdie; f/u BUn/Cr, BP, daily weight. May need hydration while septic. May require transfer to ICU. Code(s): R50.9 - FEVER, UNSPECIFIED
[2017-04-20] MEDS ORDERED: SODIUM CHLORIDE 1,000 ML IV SCH (07:15)
[2017-04-20] MEDS ORDERED: ACETAMINOPHEN 1000 MG/100 ML VIAL (NON FORMULARY) IVPB ONE (07:48)
[2017-04-20 07:57] LABS: INR 5.13 (0.82-1.09)
--- NOTE | 2017-04-20 08:00 | HOSP ---
Subjective - Review of Symptoms Events since last encounter: Called to bedside by nursing staff as Pt BP initially measured at 40s/20s. Repeat 90/39, started on fluids. Stat cultures, lactic acid pending. Will start on empiric abx once blood drawn in AM. CXR taken. Flu swab repeated. ID consulted. Will follow closely. Physical Examination Vital Signs: Vital Signs Temperature 102.9 F H 04/20/17 05:39 Pulse Rate 126 H 04/20/17 05:39 Respiratory Rate 20 04/20/17 05:39 Blood Pressure 120/70 04/20/17 05:39 O2 Sat by Pulse Oximetry (%) 97 04/19/17 21:00 Visit type - Emergency Visit Emergency Visit: Yes ED Registration Date: 04/14/17 Care time: The patient presented to the Emergency Department on the above date and was hospitalized for further evaluation of their emergent condition. - New Patient This patient is new to me today: No - Critical Care Critical Care patient: No
[2017-04-20] MEDS ORDERED: VANCOMYCIN 750 MG in DEXTROSE 5%-WATER - 250 ML IVPB ONE (08:03)
[2017-04-20] MEDS ORDERED: PIPERACILLIN/TAZOB 2.25 GM/50 ML PREMIX BAG IVPB ONE (08:05)
[2017-04-20 08:13] LABS: ANION GAP 13 (8-16); BLOOD UREA NITROGEN 43 mg/dL (7-18); CALCIUM 7.3 mg/dL (8.5-10.1); CHLORIDE 105 mmol/L (98-107); CO2 23 mmol/L (21-32); CREATININE 1.5 mg/dL (0.55-1.02); GLUCOSE,RANDOM 98 mg/dL (74-106); POTASSIUM 3.4 mmol/L (3.5-5.1); SODIUM 141 mmol/L (136-145)
[2017-04-20] MEDS ORDERED: PIPERACILLIN/TAZOB 2.25 GM 2.25 GM/50 ML BAG IVPB ONE (08:15)
--- NOTE | 2017-04-20 08:42 | PN ---
Teaching Attending Note Name of Resident: Luisito Steele ATTENDING PHYSICIAN STATEMENT Time of evaluation: 9 AM I saw and evaluated the patient. I reviewed the resident's note and discussed the case with the resident. I agree with the resident's findings and plan as documented. SUBJECTIVE: Patient seen and examined, anxious, tachypneic, on NRB, keeps moaning, unable to assess for ROS. OBJECTIVE: Vital Signs Period Temp Pulse Resp BP Sys/Gandara Pulse Ox Last 24 Hr 98.2 F-102.9 F 110-139 19-24 104-136/42-76 97-97 Intake & Output 04/17/17 04/18/17 04/19/17 04/20/17 23:59 23:59 23:59 23:59 Intake Total 310 150 150 Output Total 200 Balance 310 -50 150 Weight 104 lb 3.2 oz 103 lb 103 lb 12.8 oz 114 lb General: anxious, tachypneic, tachycardic in bed, warm to touch neck: positive JVD CVS:S1s2 irregular rapid Chest: bibasilar rales Abdomen: soft, ND, positive bowel sounds, non specific moaning but no specific grimacing on palpation extremities: bilateral 2+ LE edema, ?mild erythema compared to yesterday, positive pulses Neuro: responds to name, keeps moaning, moves all extremities but does no follow commands. Home Medication List Medication Instructions Recorded Confirmed Type Lisinopril [Zestril] 2.5 mg PO DAILY 03/13/16 04/14/17 History Levothyroxine [Synthroid -] 75 mcg PO DAILY@0700 04/14/17 04/14/17 History Metoprolol Tartrate 25 mg PO DAILY 04/18/17 04/18/17 History Omeprazole 40 mg PO DAILY 04/18/17 04/18/17 History Potassium Citrate [Potassium 20 meq PO DAILY 04/18/17 04/18/17 History Citrate ER] Active Medications Generic Name Dose Route Start Last Admin Trade Name Freq PRN Reason Stop Dose Admin Acetaminophen 1,000 mg 04/20/17 07:51 Ofirmev Injection - IVPB Q6H PRN FEVER Amiodarone HCl 400 mg 04/14/17 22:00 04/20/17 06:11 Cordarone - PO 400 mg TID SIMON Administration Sodium Chloride 1,000 mls @ 75 mls/hr 04/20/17 07:15 Normal Saline - IV ASDIR SIMON Vancomycin HCl 750 mg/ 250 mls @ 250 mls/hr 04/20/17 08:03 Dextrose IVPB 04/20/17 09:02 ONCE ONE Protocol Piperacillin/Tazobactam/Dextrose 2.25 gm in 50 mls @ 100 mls/hr 04/20/17 08: 15 Zosyn 2.25gm Ivpb (Premix) IVPB 04/20/17 08:44 ONCE ONE Levothyroxine Sodium 75 mcg 04/15/17 07:00 04/20/17 06:11 Synthroid - PO 75 mcg DAILY@0700 SIMON Administration Melatonin 5 mg 04/18/17 16:54 04/19/17 23:05 Melatonin PO 5 mg HS PRN Administration INSOMNIA Metoprolol Tartrate 100 mg 04/18/17 22:00 04/19/17 21:34 Lopressor - PO 100 mg BID SIMON Administration Phytonadione 5 mg 04/20/17 09:00 Aqua Mephyton Injection - SQ 04/23/17 08:59 DAILY SIMON Laboratory Results - last 24 hr 04/19/17 04/19/17 04/19/17 06:55 16:40 18:00 WBC RBC Hgb Hct MCV MCH MCHC RDW Plt Count MPV PT with INR INR Sodium 137 140 Potassium 5.5 H 3.8 Chloride 103 104 Carbon Dioxide 21 26 Anion Gap 13 10 BUN 46 H 47 H Creatinine 1.8 H 1.8 H Creat Clearance w eGFR 26.81 POC Glucometer 310 Random Glucose 106 137 H Calcium 8.8 7.7 L Total Bilirubin 3.2 H D AST 90 H ALT 68 Alkaline Phosphatase 187 H Total Protein 5.9 L Albumin 2.8 L 04/20/17 04/20/17 04/20/17 06:15 06:15 06:15 WBC 13.9 H D RBC 4.52 Hgb 12.3 Hct 39.2 MCV 86.8 MCH 27.1 MCHC 31.2 L RDW 17.5 H Plt Count 135 MPV 8.8 PT with INR 58.00 H INR 5.13 H* D Sodium 141 Potassium 3.4 L Chloride 105 Carbon Dioxide 23 Anion Gap 13 BUN 43 H Creatinine 1.5 H Creat Clearance w eGFR POC Glucometer Random Glucose 98 Calcium 7.3 L Total Bilirubin AST ALT Alkaline Phosphatase Total Protein Albumin Microbiology 04/18/17 08:00 Blood - Peripheral Venous Blood Culture - Preliminary NO GROWTH OBTAINED AFTER 48 HOURS, INCUBATION TO CONTINUE FOR 3 DAYS. 04/18/17 08:00 Blood - Peripheral Venous Blood Culture - Preliminary NO GROWTH OBTAINED AFTER 48 HOURS, INCUBATION TO CONTINUE FOR 3 DAYS. 04/15/17 04:30 Nasopharyngeal Swab Influenza Types A,B Antigen (SÁNCHEZ) - Final 04/15/17 04:30 Nasopharyngeal Swab - Final CXr - right pleural effusion with compressive atelectasis. Blood cultures sent. 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 afib with RVR -Severe sepsis/Possible septic shock -Acute respiratory alkalosis, -Afib with RVR -Acute Systolic Heart failure exacerbation -Coagulopathy, elevated INR, suspect from hepatic congestion/amiodarone -Abnormal LFTs, likely congestive hepatopathy -Hypothyoridism -SELMA, prerenal likely from CKD on her CKD (from poor EF) -Asymptomatic Hypotension, partly from tachycardia, partly from her poor EF and forward flow -Intermittent hallucinations/delusions, Suspect delirium in the setting of mild underlying dementia Plan: Unclear source so far, ?LE cellulitis, Blood cultures, flu swab, repeat urine studies, CXR, ID consult. Zosyn/vancomycin x 1. Started on fluids by cardiology, however, patient with ongoing volume overload, poor EF and less room for hydration. On NRB and alkalotic/tachypneic, Discussed with ICU, transfer, possible Bipap Cardiology input appreciated. Xarelto given 04/19 per cardiology recs. INR again elevated. Will need to d/c and continue Vitamin K. Patient will likely need to be placed on heparin drip with eventual transition to coumadin when sepsis concerns resolved once INR < 2. Amiodarone loading per cardiology, metoprolol with lower holding parameters. Suspect worsening renal/hepatic function from CHF, improved with gentle diuresis today. s/p lasix and kayexalate on 04/19 with improved renal/hepatic function, now with sepsis/hypotension. IVF with caution and low threshold for pressors. Vitamin K day 05/20. INR 5 today after 1 dose of xarelto, will need to dc now as not a safe alternative for the patient. CT brain 04/19 neg for acute concerns. DVTPPX on hold given supratherapeutic INR PT eval noted. PLan dispo planning once clincally improved. transfer to ICU given Acute hypoxic respiratory failure, severe sepsis/possible Septic Shock and poor cardiac status at baseline Total critical care time spent at bedside 25 min. total time spent in patient care 40 min.
[2017-04-20] MEDS ORDERED: PHYTONADIONE 10 MG/1 ML AMP SQ SCH (09:00)
[2017-04-20 09:43] LABS: ARTERIAL BLOOD GAS BASE EXCESS 2.1 meq/l (-2-2)
[2017-04-20] MEDS: METOPROLOL TARTRATE 50 MG TABLET (FP) PO SCH ×2 (10:40→21:58)
--- NOTE | 2017-04-20 10:47 | PN ---
Progress Note (short form) - Note Progress Note: ID Consult dictated Sepsis/ possible septic shock Fever/ leukocytosis Lactic acidosis Rapid Afib Pending sepsis workup, empiric zosyn + stat dose vancomycin
--- NOTE | 2017-04-20 11:02 | EKG ---
Test Reason : Blood Pressure : / mmHG Vent. Rate : 164 BPM Atrial Rate : 166 BPM P-R Int : 000 ms QRS Dur : 074 ms QT Int : 154 ms P-R-T Axes : 000 -36 250 degrees QTc Int : 254 ms POOR DATA QUALITY, INTERPRETATION MAY BE ADVERSELY AFFECTED ATRIAL FIBRILLATION WITH RAPID VENTRICULAR RESPONSE LEFT AXIS DEVIATION MARKED ST ABNORMALITY, POSSIBLE INFERIOR SUBENDOCARDIAL INJURY ABNORMAL ECG WHEN COMPARED WITH ECG OF 11-FEB-2017 10:21, QRS AXIS SHIFTED LEFT ST NOW DEPRESSED IN INFERIOR LEADS NONSPECIFIC T WAVE ABNORMALITY HAS REPLACED INVERTED T WAVES IN ANTEROLATERAL LEADS Confirmed by JOSUÉ LOPEZ MD ([id number]) on 04/20/2017 11:02:20 AM Referred By: Confirmed By:JOSUÉ LOPEZ MD
[2017-04-20 11:15] LABS: ALLENS TEST POSITIVE; ARTERIAL BLOOD GAS pH 7.61 (7.35-7.45)
--- NOTE | 2017-04-20 11:33 | CONS ---
DATE OF CONSULTATION: HISTORY: An 86-year-old female evaluated for sepsis. History was obtained from the chart as she cannot give a history secondary to her mental status. She was admitted to the hospital on April 14, 2017 with tachycardia. She had been noted to be tachycardic. After evaluation by her primary care physician she was noted to have atrial fibrillation with rapid ventricular response with a heart rate in the 160s. The patient was transferred to the hospital where she was placed on telemetry. She was treated for rapid atrial fibrillation and congestive heart failure. Her clinical course has been complicated by hypotension. Today the patient developed decreased responsiveness associated with tachypnea, hypotension, and a temperature of 102.9. Cultures were obtained, and she was empirically treated with vancomycin and Zosyn, and a rapid influenza swab was performed and was negative. At the present time, she is awake; however, she is not conversant. She is short of breath at rest on nonrebreather mask. No cough noted. PAST MEDICAL HISTORY: Positive for coronary artery disease, atrial fibrillation, hyperlipidemia, hypothyroidism. PAST SURGICAL HISTORY: Status post coronary artery stent. ALLERGIES: No known allergies. MEDICATIONS: Lisinopril, Lasix, Synthroid, Toprol, Xarelto. SOCIAL HISTORY: The patient resides at home. She is a nonsmoker, nondrinker. Her last hospital admission was in January 2017 for atrial fibrillation. SYSTEMS REVIEW: Neurologic: Positive for lethargy. No loss of consciousness, seizure activity, or focal weakness. Cardiac: As per HPI. Respiratory: As per HPI. Gastrointestinal: Negative vomiting or diarrhea. Genitourinary: Negative for urinary tract infection. LABORATORY DATA: White count 13.9, hematocrit 39.2, platelet count 135, BUN 43, creatinine 1.5, lactic acid 2.7. Urinalysis 4 white cells. Chest x-ray shows right pleural effusion with basilar atelectasis. Influenza swab negative. PHYSICAL EXAMINATION: General: The patient is awake but not conversant. She is short of breath at rest. Vital Signs: Temperature 102.9, blood pressure 107/49, pulse 130 and regular, respirations 22 per minute. HEENT: Sclerae anicteric. Heart: Sounds tachycardic. Irregular S1, S2. Lungs: Diminished breath sounds bilaterally. Poor inspiratory effort. Abdomen: Soft. No tenderness elicited. No mass, rebound, or rigidity. Extremities: Positive for peripheral edema. IMPRESSION: 1. Hypotension, rule out septic shock. 2. Fever, leukocytosis. 3. Lactic acidosis. 4. Rapid atrial fibrillation. PLAN: Source of sepsis syndrome not clear. Await cultures. The patient has been given STAT doses of vancomycin and Zosyn. Will continue Zosyn 3.35 g IV piggyback every 8 hours. Continue supportive measures. We will follow. Thank you for the kind referral. ROZINA VANG M.D. [id number]
--- NOTE | 2017-04-20 12:26 | CONSULT ---
Consultation: CONSULT REQUEST: We have been asked to medically evaluate this patient for septic shock. HISTORY OF PRESENT ILLNESS: The patient is an 86 year old female with a history of CAD w/ stents, afib on xarelto, HFpEF (EF 67.8%, 2016) and HLD who initially presented to the hospital for afib with RVR now transferred to the ICU for hypotension, fevers, and presumed sepsis. The patient was initially admitted with afib with rvr rate controlled on amiodarone throughout her admission. She was noted to have increasing AMS throughout her admission prompting a head ct 2 days ago which was unremarkable. She was then noted to be febrile earlier this morning to 103 and hypotensive to systolic of 40 which responded to a 200cc fluid bolus. She was transferred to the ICU for presumed sepsis and septic shock for further monitoring and management. Recent Travel: None PAST MEDICAL HISTORY: Afib CAD HTN HfPef HLD PAST SURGICAL HISTORY: Cardiac Stents (2009) Social History: Smoking: Denies Alcohol: Denies Drugs: Denies Family History: Noncontributory REVIEW OF SYSTEMS: CONSTITUTIONAL: Fevers, Chills Absent: diaphoresis, generalized weakness, malaise, loss of appetite, weight change HEENT: Absent: rhinorrhea, nasal congestion, throat pain, throat swelling, difficulty swallowing, mouth swelling, ear pain, eye pain, visual changes CARDIOVASCULAR: Absent: chest pain, syncope, palpitations, lightheadedness, peripheral edema RESPIRATORY: Shortness of Breath Absent: cough, dyspnea with exertion, orthopnea, wheezing, stridor, hemoptysis GASTROINTESTINAL: Absent: abdominal pain, abdominal distension, nausea, vomiting, diarrhea, constipation, melena, hematochezia GENITOURINARY: Absent: dysuria, frequency, urgency, hesitancy, hematuria, flank pain, genital pain MUSCULOSKELETAL: Absent: myalgia, arthralgia, joint swelling, back pain, neck pain SKIN: Absent: rash, itching, pallor HEMATOLOGIC/IMMUNOLOGIC: Absent: easy bleeding, easy bruising, lymphadenopathy, frequent infections ENDOCRINE: Absent: unexplained weight gain, unexplained weight loss, heat intolerance, cold intolerance NEUROLOGIC: Mental Status Changes Absent: headache, focal weakness or paresthesias, dizziness, unsteady gait, seizure, bladder or bowel incontinence PSYCHIATRIC: Hallucinations. Absent: anxiety, depression, suicidal or homicidal ideation, PHYSICAL EXAMINATION Vital Signs - 24 hr 01/04/19/17 04/19/17 13:56 17:00 20:00 Temperature 98.9 F 99.3 F 98.2 F Pulse Rate 139 H 118 H 110 H Respiratory 19 20 20 Rate Blood Pressure 136/67 104/65 106/42 O2 Sat by Pulse Oximetry (%) 04/19/17 04/20/17 04/20/17 21:00 02:00 05:39 Temperature 98.4 F 102.9 F H Pulse Rate 116 H 126 H Respiratory 20 20 Rate Blood Pressure 105/76 120/70 O2 Sat by Pulse 97 Oximetry (%) 04/20/17 04/20/17 04/20/17 08:50 10:00 11:09 Temperature 102.0 F H 100.6 F H Pulse Rate 130 H 110 H Respiratory 22 26 H 22 Rate Blood Pressure 107/49 110/57 O2 Sat by Pulse 95 Oximetry (%) 04/20/17 11:55 Temperature 99.8 F H Pulse Rate 106 H Respiratory 17 Rate Blood Pressure 110/80 O2 Sat by Pulse 96 Oximetry (%) GENERAL: Awake, alert, arousable, and oriented x1 in no acute distress. HEAD: Normal with no signs of trauma. EYES: Pupils equal, round and reactive to light, extraocular movements intact, sclera anicteric, conjunctiva clear. No lid lag. EARS, NOSE, THROAT: Ears normal, nares patent, oropharynx clear without exudates. Moist mucous membranes. NECK: Normal range of motion, supple without lymphadenopathy, JVD, or masses. LUNGS: Breath sounds equal, clear to auscultation bilaterally. No wheezes, and no crackles. No accessory muscle use. HEART: Irregular rhythm with tachycardia, normal S1 and S2 without murmur, rub or gallop. ABDOMEN: Soft, nontender, not distended, normoactive bowel sounds, no guarding, no rebound, no masses. No hepatomegaly or splenomegaly. MUSCULOSKELETAL: Normal range of motion at all joints. No bony deformities or tenderness. No CVA tenderness. UPPER EXTREMITIES: 2+ pulses, warm, well-perfused. No cyanosis. No clubbing. Cap refill <2 seconds. No peripheral edema. LOWER EXTREMITIES: 2+ pulses, warm, well-perfused. No calf tenderness. Peripheral edema noted on exam. NEUROLOGICAL: Normal speech. Normal gait. PSYCHIATRIC: Cooperative. Good eye contact. Appropriate mood and affect. SKIN: Warm, dry, normal turgor, no rashes or lesions noted. Laboratory Results - last 24 hr 04/19/17 04/19/17 04/20/17 16:40 18:00 06:15 WBC RBC Hgb Hct MCV MCH MCHC RDW Plt Count MPV PT with INR 58.00 H INR 5.13 H* D Puncture Site ABG pH ABG pCO2 at Pt Temp ABG pO2 at Pt Temp ABG HCO3 ABG O2 Sat (Measured) ABG O2 Content ABG Base Excess José Miguel Test Oxygen Flow Rate Sodium 140 Potassium 3.8 Chloride 104 Carbon Dioxide 26 Anion Gap 10 BUN 47 H Creatinine 1.8 H POC Glucometer 310 Random Glucose 137 H Lactic Acid Calcium 7.7 L 04/20/17 04/20/17 04/20/17 06:15 06:15 09:15 WBC 13.9 H D RBC 4.52 Hgb 12.3 Hct 39.2 MCV 86.8 MCH 27.1 MCHC 31.2 L RDW 17.5 H Plt Count 135 MPV 8.8 PT with INR INR Puncture Site ABG pH ABG pCO2 at Pt Temp ABG pO2 at Pt Temp ABG HCO3 ABG O2 Sat (Measured) ABG O2 Content ABG Base Excess José Miguel Test Oxygen Flow Rate Sodium 141 Potassium 3.4 L Chloride 105 Carbon Dioxide 23 Anion Gap 13 BUN 43 H Creatinine 1.5 H POC Glucometer Random Glucose 98 Lactic Acid 2.7 H* Calcium 7.3 L 04/20/17 09:35 WBC RBC Hgb Hct MCV MCH MCHC RDW Plt Count MPV PT with INR INR Puncture Site Right radial ABG pH 7.61 H* ABG pCO2 at Pt Temp 22.0 L ABG pO2 at Pt Temp 257.0 H* ABG HCO3 22.4 ABG O2 Sat (Measured) 100.0 H* ABG O2 Content 16.3 ABG Base Excess 2.1 H José Miguel Test Positive Oxygen Flow Rate Yes Sodium Potassium Chloride Carbon Dioxide Anion Gap BUN Creatinine POC Glucometer Random Glucose Lactic Acid Calcium Active Medications Generic Name Dose Route Start Last Admin Trade Name Freq PRN Reason Stop Dose Admin Acetaminophen 1,000 mg 04/20/17 07:51 Ofirmev Injection - IVPB Q6H PRN FEVER Amiodarone HCl 400 mg 04/20/17 10:00 Cordarone - PO BID SIMON Sodium Chloride 1,000 mls @ 75 mls/hr 04/20/17 07:15 04/20/17 07:35 Normal Saline - IV 75 mls/hr ASDIR SIMON Administration Piperacillin Sod/Tazobactam 100 mls @ 200 mls/hr 04/20/17 18:00 Sod 3.375 gm/ Dextrose IVPB Q8H-IV SIMON Protocol Levothyroxine Sodium 75 mcg 04/15/17 07:00 04/20/17 06:11 Synthroid - PO 75 mcg DAILY@0700 SIMON Administration Melatonin 5 mg 04/18/17 16:54 04/19/17 23:05 Melatonin PO 5 mg HS PRN Administration INSOMNIA Metoprolol Tartrate 100 mg 04/18/17 22:00 04/20/17 10:40 Lopressor - PO Not Given BID SIMON Phytonadione 5 mg 04/20/17 20:00 Aqua Mephyton Injection - SQ 04/20/17 20:01 ONCE ONE ASSESSMENT/PLAN: The patient is an 86 year old female with a history of CAD w/ stents, afib on xarelto, HFpEF (EF 67.8%, 2015) and HLD who initially presented to the hospital for afib with RVR now transferred to the ICU for hypotension, fevers, and presumed sepsis. NEURO Patient is arousable and alert, but only oriented x1. The patient's AMS is likely due to sepsis. -Will continue to monitor. CV #Hypotension Patient was initially noted to be hypotensive with a systolic of 40 which improved after 200cc fluid bolus. The patient's BP remains stable on presentation to the ICU at this time. -Maintenance fluids at 75ml/hr. -Will continue to monitor. #Afib with RVR Patient initially presented with a hr of 160 now rate controlled to 100-110 on amiodarone. Patient on xarelto for anti-coagulation. Industrial Design Engineer is following. -Continue amidarone per cardiology recs. -Will continue to monitor closely. -Appreciate cardiology recs. #CHF (EF 67.8%, 2015) Patient was initially being diuriesed, however due to the patient's hypotension , she is no longer on a dieretic agent. -Conservative fluid hydration at the moment. -Will continue to monitor closely. RESP #Respiratory distress Patient was noted to desaturate earlier this morning and was placed on a non- rebreather. She does not appear in acute respiratory distress at this time and is not utilizing accessory muscles. -Continue non-rebreather and ween down as tolerated. -Close monitoring of the patient's O2 saturation. -Should the patient worsen, will consider starting bipap vs intubation although less likely given her clinical appearance. -Will continue to monitor. GI No issues currently -Will continue to monitor Renal No issues currently -Will continue to monitor bun/creatinine. ID #Sepsis Patient noted to be febrile earlier this morning with hypotension concerning for sepsis or septic shock. Chest plain film demonstrates bilateral pleural effusions as well as findings concerning for a possible pneumonia. Possible sources of the patient's infection could be pneumonia vs. UTI. Blood cultures and urine cultures were sent. -Patient started on vancomycin and zosyn. -Continue to manage fever with tylenol. -Serial CXR. -Follow up on blood and urine cultures. -Will continue to monitor. MSK No issues currently FEN/GI -Replete electrolytes PRN, will monitor DISPO: Continue ICU level of care. Visit type - Emergency Visit Emergency Visit: Yes ED Registration Date: 04/14/17 Care time: The patient presented to the Emergency Department on the above date and was hospitalized for further evaluation of their emergent condition. - New Patient This patient is new to me today: Yes Date on this admission: 04/20/17 - Critical Care Critical Care patient: Yes Total Critical Care Time (in minutes): 35 Critical Care Statement: The care of this patient involved high complexity decision making to prevent further life threatening deterioration of the patient 's condition and/or to evaluate & treat vital organ system(s) failure or risk of failure.
[2017-04-20 12:38] LABS: URINE APPEARANCE CLEAR; URINE BILIRUBIN NEGATIVE (NEGATIVE); URINE BLOOD NEGATIVE (NEGATIVE); URINE COLOR AMBER; URINE GLUCOSE (UA) NEGATIVE (NEGATIVE); URINE KETONE TRACE (NEGATIVE); URINE LEUK ESTERASE NEGATIVE (NEGATIVE); URINE NITRITE NEGATIVE (NEGATIVE); URINE PROTEIN NEGATIVE (NEGATIVE)
--- NOTE | 2017-04-20 12:55 | PN ---
Teaching Attending Note Name of Resident: Chester Zavala ATTENDING PHYSICIAN STATEMENT I saw and evaluated the patient. I reviewed the resident's note and discussed the case with the resident. I agree with the resident's findings and plan as documented. SUBJECTIVE: Pt seen and examined in the ICU. Briefly, 86yo female with h/o CAD s/p stents, atrial fibrillation, LV diastolic dysfunction, hypothyroidism, hypercholesterolemia who was admitted for rapid atrial fibrillation. Became febrile, tachycardic, hypotensive this AM, transferred to the ICU for further monitoring. On NRB, ABG showing respiratory alkalosis. Bolused with IVF with good response. OBJECTIVE: Last Vital Signs Temp Pulse Resp BP Pulse Ox 99.8 F H 106 H 22 110/80 96 04/20/17 11:55 04/20/17 11:55 04/20/17 11:55 04/20/17 11:55 04/20/17 11:55 Intake & Output 04/17/17 04/18/17 04/19/17 04/20/17 23:59 23:59 23:59 23:59 Intake Total 310 150 150 650 Output Total 200 250 Balance 310 -50 150 400 Weight 47.264 kg 46.72 kg 47.083 kg 51.71 kg Gen: confused, anxious, mildly tachypneic Heart: tachycardic, irregular Lung: distant breath sounds Abd: soft, nontender Ext: + edema CBC, BMP 04/20/17 06:15 04/20/17 06:15 Active Medications Acetaminophen (Ofirmev Injection -) 1,000 mg IVPB Q6H PRN PRN Reason: FEVER Amiodarone HCl (Cordarone -) 400 mg PO BID SIMON Sodium Chloride (Normal Saline -) 1,000 mls @ 75 mls/hr IV ASDIR [facility] Last Admin: 04/20/17 07:35 Dose: 75 mls/hr Piperacillin Sod/Tazobactam (Sod 3.375 gm/ Dextrose) 100 mls @ 200 mls/hr IVPB Q8H-IV SIMON PRN Reason: Protocol Levothyroxine Sodium (Synthroid -) 75 mcg PO DAILY@0700 [facility] Last Admin: 04/20/17 06:11 Dose: 75 mcg Melatonin (Melatonin) 5 mg PO HS PRN PRN Reason: INSOMNIA Last Admin: 04/19/17 23:05 Dose: 5 mg Metoprolol Tartrate (Lopressor -) 100 mg PO BID SIMON Last Admin: 04/20/17 10:40 Dose: Not Given Phytonadione (Aqua Mephyton Injection -) 5 mg SQ ONCE ONE Stop: 04/20/17 20:01 ASSESSMENT AND PLAN: Acute Hypoxic Respiratory Failure Pneumonia Severe Sepsis Atrial Fibrillation with RVR Acute Kidney Injury Lactic Acidosis Elevated LFTs Acute on Chronic Diastolic Heart Failure Coagulopathy - continue antibiotics - f/u cultures - IVF resuscitation with boluses - monitor urine output, creatinine - trend lactate - monitor LFTs, coags - rate control - anticoagulation, target INR 2-3 - replete lytes - O2 to keep SpO2 >90% - continue ICU monitoring critical care time spent in reviewing chart, evaluating patient and formulating plan 35 min
[2017-04-20] MEDS: ACETAMINOPHEN 1000 MG/100 ML VIAL (NON FORMULARY) IVPB PRN ×2 (13:14→18:11)
--- NOTE | 2017-04-20 13:30 | PN ---
Progress Note (short form) - Note Progress Note: pt seen and examined d/w daughter at bedside. Transferred to ICU AFVSS Cor: afib Lungs: Clear to anterior Abd: Soft, Normal bowel sounds, No organomegaly Ext:2+ edema b/l, erythematous neuro: drowsy Last Vital Signs Temp Pulse Resp BP Pulse Ox 99.8 F H 106 H 22 110/80 96 04/20/17 11:55 04/20/17 11:55 04/20/17 11:55 04/20/17 11:55 04/20/17 11:55 CBC, BMP 04/20/17 06:15 04/20/17 06:15 Current Medications Generic Name Dose Route Start Last Admin Trade Name Freq PRN Reason Stop Dose Admin Acetaminophen 1,000 mg 04/20/17 07:51 04/20/17 13:14 Ofirmev Injection - IVPB 1,000 mg Q6H PRN Administration FEVER Amiodarone HCl 400 mg 04/20/17 10:00 Cordarone - PO BID SIMON Sodium Chloride 1,000 mls @ 75 mls/hr 04/20/17 07:15 04/20/17 07:35 Normal Saline - IV 75 mls/hr ASDIR SIMON Administration Piperacillin Sod/Tazobactam 100 mls @ 200 mls/hr 04/20/17 18:00 Sod 3.375 gm/ Dextrose IVPB Q8H-IV SIMON Protocol Levothyroxine Sodium 75 mcg 04/15/17 07:00 04/20/17 06:11 Synthroid - PO 75 mcg DAILY@0700 SIMON Administration Melatonin 5 mg 04/18/17 16:54 04/19/17 23:05 Melatonin PO 5 mg HS PRN Administration INSOMNIA Metoprolol Tartrate 100 mg 04/18/17 22:00 04/20/17 10:40 Lopressor - PO Not Given BID SIMON Phytonadione 5 mg 04/20/17 20:00 Aqua Mephyton Injection - SQ 04/20/17 20:01 ONCE ONE INR, PTT INR 5.13 (0.82-1.09) H* D 04/20/17 06:15 Fibrinogen 236.0 mg/dL (238-498) L 04/18/17 05:05 86 yo F w/ h/o CAD w/ stents, afib on xarelto, HFpEF (EF 67.8%, 2016) and HLD 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 Being treeated for afib with amiodarone/metoprolol and acute on chronic CHF. also with CKD repeat Vit k drift down to 2-3 sepsis Rx (?source) per ID/ICU coagulopathy--elevated INR. Normal PTT Xeralto could elevate PT/INR In addition congestive hepatopathy from CHF, occult sepsis and Vit. K deficiency could be additional factors. Given lower extremity edema and clinical picture suspect congestive hepatopathy as the contributing factor given renal impairment ands suspecting component of congestive hepatopathy with coagulopathy at base line, briding heparin or lovenox to coumadin and closely , monitoring INR may be a safer alternative.
[2017-04-20] MEDS ORDERED: PT OWN MED DRAWER 7, Y5N ONE (17:05)
[2017-04-20] MEDS: PIPERACILLIN/TAZOB 3.375 GM 3.375 GM in DEXTROSE 5%-WATER - 100 ML IVPB SCH (17:19)
[2017-04-20] MEDS ORDERED: METOPROLOL TARTRATE 5 MG/5 ML VIAL ONE (17:21)
[2017-04-20] MEDS: LYTES/YERBA SANTA 240 ML BOTTLE MM SCH (18:06)
[2017-04-20] MEDS ORDERED: METOPROLOL TARTRATE 5 MG/5 ML VIAL IVPUSH ONE (18:07)
[2017-04-20] MEDS ORDERED: PHYTONADIONE 10 MG/1 ML AMP SQ ONE (20:00)
[2017-04-20] MEDS ORDERED: QUEtiapine FUMARATE 25 MG TABLET (FP) PO STA (22:59)
[2017-04-21] MEDS: ACETAMINOPHEN 1000 MG/100 ML VIAL (NON FORMULARY) IVPB PRN ×2 (00:47→07:39)
[2017-04-21] MEDS ORDERED: PT OWN MED DRAWER 7, Y5N ONE ×3 (01:56→18:17)
[2017-04-21] MEDS: PIPERACILLIN/TAZOB 3.375 GM 3.375 GM in DEXTROSE 5%-WATER - 100 ML IVPB SCH ×3 (01:58→18:18)
--- NOTE | 2017-04-21 05:49 | PN ---
Physical Exam: SUBJECTIVE: Patient seen and examined by me this AM - Pt transferred to ICU yesterday given fever, low BP in AM, significantly more agitated and disoriented. Cultures sent. LA 2.7. Started on gentle fluids given CHF. Started on empiric IV abx and ID consulted. - In ICU, pt still agitated, made NPO as choking on water. NGT inserted for feeding, position confirmed. Still febrile, given tylenol. Vit K SQ 5mg given for elevated INR by HOUSING LIAISON. started on seroquel 12.5mg for agitation with good effect. Pt placed on BiPap 31/12//75%, tolerated well overnight. Lactic acid corrected to 2.2 in early PM. - Pt remains delirious, agitated. However, states that she feels no pain and feels fine. Mildly hypoxic after taking seroquel. OBJECTIVE: Vital Signs Intake & Output 04/18/17 04/19/17 04/20/17 04/21/17 23:59 23:59 23:59 23:59 Intake Total 927 066 8518 Output Total 200 250 Balance -50 150 1125 Weight 46.72 kg 47.083 kg 51.71 kg Period Temp Pulse Resp BP Sys/Gandara Pulse Ox Last 24 Hr 99.8 F-102.0 F 101-137 17-29 84-144/49-127 94-96 GENERAL: Elderly woman in NAD. A&Ox1, agitated, but less tremulous today. on Bipap. HEAD: NG tube in place. Normal with no signs of trauma. EYES: Pupils equal, round and reactive to light, extraocular movements intact, sclera anicteric, conjunctiva clear. No lid lag. EARS, NOSE, THROAT: Ears normal, nares patent, oropharynx clear without exudates. Moist mucous membranes. NECK: Normal range of motion, supple without lymphadenopathy, or masses. LUNGS: Decreased breath sounds at bases, bibasilar rales. Trace wheeze in upper lobes. No accessory muscle use. HEART: Irregularly Irregular, normal S1 and S2 without murmur, rub or gallop. ABDOMEN: Soft, nontender, not distended, normoactive bowel sounds, no guarding, no rebound, no masses. No hepatomegaly or splenomegaly. MUSCULOSKELETAL: Normal range of motion at all joints. No bony deformities or tenderness. No CVA tenderness. UPPER EXTREMITIES: 2+ pulses, warm, well-perfused. No cyanosis. No clubbing. No peripheral edema. LOWER EXTREMITIES: 2 + pitting edema BL to knees still. 2+ pulses, warm, well- perfused. No calf tenderness. BL superficial varicose veins on anterior shins. NEUROLOGICAL: Cranial nerves II-XII intact. Normal speech. Normal gait. 5/5 strength in all extremities. Sensation to light touch preserved diffusely PSYCHIATRIC: Very agitated. Poor eye contact. Appropriate mood and affect. SKIN: Warm, dry, normal turgor, no rashes or lesions noted, normal capillary refill. Laboratory Results - last 24 hr CBC, BMP 04/21/17 06:30 04/21/17 06:30 04/20/17 06:15 04/20/17 06:15 04/20/17 04/20/17 04/20/17 06:15 06:15 06:15 WBC 13.9 H D RBC 4.52 Hgb 12.3 Hct 39.2 MCV 86.8 MCH 27.1 MCHC 31.2 L RDW 17.5 H Plt Count 135 MPV 8.8 PT with INR 58.00 H INR 5.13 H* D Puncture Site ABG pH ABG pCO2 at Pt Temp ABG pO2 at Pt Temp ABG HCO3 ABG O2 Sat (Measured) ABG O2 Content ABG Base Excess José Miguel Test Oxygen Flow Rate Sodium 141 Potassium 3.4 L Chloride 105 Carbon Dioxide 23 Anion Gap 13 BUN 43 H Creatinine 1.5 H Random Glucose 98 Lactic Acid Calcium 7.3 L Urine Color Urine Appearance Urine pH Ur Specific [place] Urine Protein Urine Glucose (UA) Urine Ketones Urine Blood Urine Nitrite Urine Bilirubin Urine Urobilinogen Ur Leukocyte Esterase 04/20/17 04/20/17 04/20/17 09:15 09:35 11:05 WBC RBC Hgb Hct MCV MCH MCHC RDW Plt Count MPV PT with INR INR Puncture Site Right radial ABG pH 7.61 H* ABG pCO2 at Pt Temp 22.0 L ABG pO2 at Pt Temp 257.0 H* ABG HCO3 22.4 ABG O2 Sat (Measured) 100.0 H* ABG O2 Content 16.3 ABG Base Excess 2.1 H José Miguel Test Positive Oxygen Flow Rate Yes Sodium Potassium Chloride Carbon Dioxide Anion Gap BUN Creatinine Random Glucose Lactic Acid 2.7 H* Calcium Urine Color Shaneka Urine Appearance Clear Urine pH 5.0 Ur Specific [place] 1.019 Urine Protein Negative Urine Glucose (UA) Negative Urine Ketones Trace H Urine Blood Negative Urine Nitrite Negative Urine Bilirubin Negative Urine Urobilinogen 2.0 H Ur Leukocyte Esterase Negative 04/20/17 16:00 WBC RBC Hgb Hct MCV MCH MCHC RDW Plt Count MPV PT with INR INR Puncture Site ABG pH ABG pCO2 at Pt Temp ABG pO2 at Pt Temp ABG HCO3 ABG O2 Sat (Measured) ABG O2 Content ABG Base Excess José Miguel Test Oxygen Flow Rate Sodium Potassium Chloride Carbon Dioxide Anion Gap BUN Creatinine Random Glucose Lactic Acid 2.2 H* Calcium Urine Color Urine Appearance Urine pH Ur Specific [place] Urine Protein Urine Glucose (UA) Urine Ketones Urine Blood Urine Nitrite Urine Bilirubin Urine Urobilinogen Ur Leukocyte Esterase Active Medications Generic Name Dose Route Start Last Admin Trade Name Freq PRN Reason Stop Dose Admin Acetaminophen 1,000 mg 04/20/17 07:51 04/21/17 00:47 Ofirmev Injection - IVPB 1,000 mg Q6H PRN Administration FEVER Amiodarone HCl 400 mg 04/20/17 10:00 04/20/17 21:58 Cordarone - PO Not Given BID SIMON Sodium Chloride 1,000 mls @ 75 mls/hr 04/20/17 07:15 04/20/17 07:35 Normal Saline - IV 75 mls/hr ASDIR SIMON Administration Piperacillin Sod/Tazobactam 100 mls @ 200 mls/hr 04/20/17 18:00 04/21/17 01: 58 Sod 3.375 gm/ Dextrose IVPB 200 mls/hr Q8H-IV SIMON Administration Protocol Levothyroxine Sodium 75 mcg 04/15/17 07:00 04/20/17 06:11 Synthroid - PO 75 mcg DAILY@0700 SIMON Administration Melatonin 5 mg 04/18/17 16:54 04/19/17 23:05 Melatonin PO 5 mg HS PRN Administration INSOMNIA Metoprolol Tartrate 100 mg 04/18/17 22:00 04/20/17 21:58 Lopressor - PO Not Given BID SIMON Saliva Substitute 1 applic 04/20/17 17:15 04/20/17 18:06 Mouthkote Solution - MM 1 applic DAILY SIMON Administration Microbiology 04/20/17 07:55 Nasopharyngeal Swab Influenza Types A,B Antigen (SÁNCHEZ) - Final 04/20/17 07:55 Nasopharyngeal Swab - Final 04/18/17 08:00 Blood - Peripheral Venous Blood Culture - Preliminary NO GROWTH OBTAINED AFTER 48 HOURS, INCUBATION TO CONTINUE FOR 3 DAYS. 04/18/17 08:00 Blood - Peripheral Venous Blood Culture - Preliminary NO GROWTH OBTAINED AFTER 48 HOURS, INCUBATION TO CONTINUE FOR 3 DAYS. 04/15/17 04:30 Nasopharyngeal Swab Influenza Types A,B Antigen (SÁNCHEZ) - Final 04/15/17 04:30 Nasopharyngeal Swab - Final Prior echo in 2015 -> pulm htn, severe TR, EF ~67%, dilated atria Echo 02/10 - LVEF reduced in setting of afib with RVR, moderate MR, moderate TR , RV pressure 40-50, LAE Persantine stress test 02/14 - relatively unremarkable with minimal ischemic changes. EKG 04/14 - Afib w/ RVR, no ST changes, TWI in lateral leads, Rate 164 CXR 04/14 - Cardiomegaly, mild congestion, BL pleural effusions ABdominal U/S 04/16 - R pleural effusion; fatty infiltrates of liver; atrophic kidneys with no evidence of hydronephrosis EKG 04/17 - Afib w/ RVR. rate 110, NAD, QTC 446 CXR 04/18 - no change CT head 04/19 - no acute bleed or mass effect; mild atropy EKG 04/19 - Afib/flutter, rate of 106, NAD, QTC 470, no TW changes CXR 04/20 - Right pleural effusion with compressive atelectasis. Elevated left diaphragm. Questionable left pleural effusion. No pneumothorax is seen CXR 04/21 - Since the prior study of 04/20/2017, the feeding tube is been inserted and the tip is in the left upper quadrant/stomach. The patient is rotated to the right. There is a large heart, unfolded aorta and some bibasilar changes. Correlation recommended. 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 #Sepsis secondary to unknown source complicated by acute hypoxic respiratory failure - Blood cultures + for GP bacilli. - empiric abx - day 2 vanc, zosyn - ID consult, recs appreciated - trend WBC, fever - d/c fluids as CXR with increased volume overload - ABG this AM 7.36/43/368/24 - Lactic acid 2.7 on transfer yesterday; repeat 4.8 this AM - UA negative - O2 support as needed; on bipap overnight at 100%/rate of 14/I10/E5 - flu negative #Afib with RVR, HR in 100-130s today - INR 3.51 this AM; s/p 3/3 vit k -c/w Amiodarone 400mg PO TID and Metoprolol 100mg PO BID -AC held in setting of elevated INR, sepsis - Plan for coumadin/heparin bridging vs. xarelto per cardiology for AC after sepsis resolves #acute on chronic systolic CHF - daily weights, I&O's - Metoprolol 100mg BID - No lasix today; will d/c fluids; #AMS - pt w/ waxing/waning MS - likely secondary to active infection - CT head negative for bleed; mild diffuse atrophy - Monitor mental status; continue to reorient #Hyperkalemia - resolved - trend K; replete as needed - Daily BMPs #SELMA- Cr improving, 1.5- > 1.7 today - Trend Cr - Daily BMPs #HTN -currently hypotensive -hold lisinopril and continue other meds with close BP monitoring #supratherapeutic INR, Abd U/S wnl - possibly 2/2 congestive hepatopathy -Heme consulted. Appreciate recommendations -Hold AC in setting of sepsis, elevated INR - Finished 3 day course of Vit K #hypothyroidism - c/w Synthroid 75 mcg qd #DVT PPX Xarelto when sepsis resolves #FEN: NPO Daily BMP Na controlled diet Full code dispo to ICU for further management Plan d/w attending, Dr. Leeroy Steele, PGY1 Visit type - Emergency Visit Emergency Visit: Yes ED Registration Date: 04/14/17 Care time: The patient presented to the Emergency Department on the above date and was hospitalized for further evaluation of their emergent condition. - New Patient This patient is new to me today: No - Critical Care Critical Care patient: Yes Total Critical Care Time (in minutes): 35 Critical Care Statement: The care of this patient involved high complexity decision making to prevent further life threatening deterioration of the patient 's condition and/or to evaluate & treat vital organ system(s) failure or risk of failure.
[2017-04-21] MEDS ORDERED: ALPRAZolam 0.25 MG TABLET NGT SCH (06:45)
[2017-04-21] MEDS: LEVOTHYROXINE NA 75 MCG TABLET (FP) PO SCH (06:47)
[2017-04-21 06:57] LABS: INR 3.51 (0.82-1.09); PROTHROMBIN TIME (PATIENT) 39.7 SEC (9.98-11.88)
[2017-04-21 07:15] LABS: CHLORIDE 105 mmol/L (98-107); SODIUM 142 mmol/L (136-145)
[2017-04-21 07:23] LABS: ALBUMIN 2.4 g/dl (3.4-5.0); ALK PHOS 119 U/L (45-117); ANION GAP 15 (8-16); BILIRUBIN,TOTAL 4.3 mg/dL (0.2-1.0); BLOOD UREA NITROGEN 44 mg/dL (7-18); CALCIUM 7.9 mg/dL (8.5-10.1); CO2 22 mmol/L (21-32); CREATININE 1.7 mg/dL (0.55-1.02); GLUCOSE,RANDOM 107 mg/dL (74-106); PHOSPHOROUS 3.9 mg/dL (2.5-4.9); SGPT/ALT 64 U/L (12-78); TOT PROT 5.5 g/dl (6.4-8.2)
[2017-04-21 07:27] LABS: MAGNESIUM 2.4 mg/dL (1.8-2.4); POTASSIUM 3.9 mmol/L (3.5-5.1); SGOT/AST 67 U/L (15-37)
[2017-04-21 07:34] LABS: BASO % 0.1 % (0-2.0); HEMOGLOBIN 13.8 GM/dL (10.7-15.3); LYMPH % 2.5 % (8-40); MCH 27.2 pg (25.7-33.7); MCHC 30.7 g/dl (32.0-36.0); MEAN CELL VOLUME 88.4 fl (80-96); MEAN PLT VOLUME 8.9 fl (7.5-11.1); MONO % 4.4 % (3.8-10.2); PLATELET COUNT 127 K/MM3 (134-434); RBC 5.09 M/mm3 (3.60-5.2); RDW 18.2 % (11.6-15.6); WHITE BLOOD COUNT 13.2 K/mm3 (4.0-10.0)
[2017-04-21] MEDS: ALPRAZolam 0.25 MG TABLET NGT PRN (07:56)
--- NOTE | 2017-04-21 08:31 | PN ---
Physical Exam: SUBJECTIVE: Patient seen and examined The patient is an 86 year old female with a history of CAD w/ stents, afib on xarelto, HFpEF (EF 67.8%, 2016) and HLD who initially presented to the hospital for afib with RVR now transferred to the ICU for hypotension, fevers, and presumed sepsis. Patient was agitated overnight and received seroquel and xanax and was placed in restraints. She was also started on Bipap overnight and has continued to be agitated. OBJECTIVE: Vital Signs Period Temp Pulse Resp BP Sys/Gandara Pulse Ox Last 24 Hr 98.3 F-102.0 F 101-147 17-29 84-144/49-127 94-96 GENERAL: The patient is awake, alert, agitated and oriented x1 in no acute distress. HEAD: Normal with no signs of trauma. EYES: sclera anicteric, conjunctiva clear. No ptosis. ENT: oropharynx clear without exudates, moist mucous membranes. NECK: Trachea midline, full range of motion, supple. LUNGS: Breath sounds equal, clear to auscultation bilaterally, no wheezes, no crackles, no accessory muscle use. HEART: Regular rate and rhythm, S1, S2 without murmur, rub or gallop. ABDOMEN: Soft, nontender, nondistended, normoactive bowel sounds, no guarding, no rebound, no hepatosplenomegaly, no masses. EXTREMITIES: 2+ pulses, warm, well-perfused, NEUROLOGICAL: gait not observed. PSYCH: Normal mood, normal affect. SKIN: Warm, dry, normal turgor, no rashes or lesions noted Laboratory Results - last 24 hr 04/20/17 04/20/17 04/20/17 09:15 09:35 11:05 WBC RBC Hgb Hct MCV MCH MCHC RDW Plt Count MPV Neutrophils % Lymphocytes % Monocytes % Eosinophils % Basophils % PT with INR INR PTT (Actin FS) Fibrinogen Puncture Site Right radial ABG pH 7.61 H* ABG pCO2 at Pt Temp 22.0 L ABG pO2 at Pt Temp 257.0 H* ABG HCO3 22.4 ABG O2 Sat (Measured) 100.0 H* ABG O2 Content 16.3 ABG Base Excess 2.1 H José Miguel Test Positive Oxygen Flow Rate Yes Sodium Potassium Chloride Carbon Dioxide Anion Gap BUN Creatinine Creat Clearance w eGFR Random Glucose Lactic Acid 2.7 H* Calcium Phosphorus Magnesium Total Bilirubin AST ALT Alkaline Phosphatase Total Protein Albumin Urine Color Shaneka Urine Appearance Clear Urine pH 5.0 Ur Specific [place] 1.019 Urine Protein Negative Urine Glucose (UA) Negative Urine Ketones Trace H Urine Blood Negative Urine Nitrite Negative Urine Bilirubin Negative Urine Urobilinogen 2.0 H Ur Leukocyte Esterase Negative 04/20/17 04/21/17 04/21/17 16:00 06:30 06:30 WBC 13.2 H RBC 5.09 Hgb 13.8 D Hct 45.0 MCV 88.4 MCH 27.2 MCHC 30.7 L RDW 18.2 H Plt Count 127 L MPV 8.9 Neutrophils % 93.0 H Lymphocytes % 2.5 L D Monocytes % 4.4 Eosinophils % 0.0 D Basophils % 0.1 PT with INR INR PTT (Actin FS) Fibrinogen Puncture Site ABG pH ABG pCO2 at Pt Temp ABG pO2 at Pt Temp ABG HCO3 ABG O2 Sat (Measured) ABG O2 Content ABG Base Excess José Miguel Test Oxygen Flow Rate Sodium 142 Potassium 3.9 Chloride 105 Carbon Dioxide 22 Anion Gap 15 BUN 44 H Creatinine 1.7 H Creat Clearance w eGFR 28.63 Random Glucose 107 H Lactic Acid 2.2 H* Calcium 7.9 L Phosphorus 3.9 Magnesium 2.4 Total Bilirubin 4.3 H D AST 67 H ALT 64 Alkaline Phosphatase 119 H Total Protein 5.5 L Albumin 2.4 L Urine Color Urine Appearance Urine pH Ur Specific [place] Urine Protein Urine Glucose (UA) Urine Ketones Urine Blood Urine Nitrite Urine Bilirubin Urine Urobilinogen Ur Leukocyte Esterase 04/21/17 04/21/17 04/21/17 06:30 06:30 06:30 WBC RBC Hgb Hct MCV MCH MCHC RDW Plt Count MPV Neutrophils % Lymphocytes % Monocytes % Eosinophils % Basophils % PT with INR 39.70 H INR 3.51 H D PTT (Actin FS) 39.0 H D Fibrinogen 383.0 D Puncture Site ABG pH ABG pCO2 at Pt Temp ABG pO2 at Pt Temp ABG HCO3 ABG O2 Sat (Measured) ABG O2 Content ABG Base Excess José Miguel Test Oxygen Flow Rate Sodium Potassium Chloride Carbon Dioxide Anion Gap BUN Creatinine Creat Clearance w eGFR Random Glucose Lactic Acid 4.8 H* Calcium Phosphorus Magnesium Total Bilirubin AST ALT Alkaline Phosphatase Total Protein Albumin Urine Color Urine Appearance Urine pH Ur Specific [place] Urine Protein Urine Glucose (UA) Urine Ketones Urine Blood Urine Nitrite Urine Bilirubin Urine Urobilinogen Ur Leukocyte Esterase Active Medications Generic Name Dose Route Start Last Admin Trade Name Paul PRN Reason Stop Dose Admin Alprazolam 0.25 mg 04/21/17 07:17 04/21/17 07:56 Xanax - NGT 0.25 mg Q6H PRN Administration AGITATION Amiodarone HCl 400 mg 04/20/17 10:00 04/20/17 21:58 Cordarone - PO Not Given BID SIMON Piperacillin Sod/Tazobactam 100 mls @ 200 mls/hr 04/20/17 18:00 04/21/17 01: 58 Sod 3.375 gm/ Dextrose IVPB 200 mls/hr Q8H-IV SIMON Administration Protocol Levothyroxine Sodium 75 mcg 04/15/17 07:00 04/21/17 06:47 Synthroid - PO 75 mcg DAILY@0700 SIMON Administration Melatonin 5 mg 04/18/17 16:54 04/19/17 23:05 Melatonin PO 5 mg HS PRN Administration INSOMNIA Metoprolol Tartrate 100 mg 04/18/17 22:00 04/20/17 21:58 Lopressor - PO Not Given BID SIMON Saliva Substitute 1 applic 04/20/17 17:15 04/20/17 18:06 Mouthkote Solution - MM 1 applic DAILY SIMON Administration ASSESSMENT/PLAN: The patient is an 86 year old female with a history of CAD w/ stents, afib on xarelto, HFpEF (EF 67.8%, 2016) and HLD who initially presented to the hospital for afib with RVR now transferred to the ICU for hypotension, fevers, and presumed sepsis. NEURO Patient is arousable and alert, but only oriented x1. The patient's AMS is likely due to sepsis. -Will continue to monitor. CV #Hypotension (Improved) Patient was initially noted to be hypotensive with a systolic of 40 which improved after 200cc fluid bolus. The patient's BP remains stable on presentation to the ICU at this time. -Will continue to monitor. #Afib with RVR Patient initially presented with a hr of 160 now rate controlled to 100-110 on amiodarone. Patient on xarelto for anti-coagulation. Rock Crusher Operator is following. -Continue amidarone per cardiology recs. -Will continue to monitor closely. -Appreciate cardiology recs. #CHF (EF 67.8%, 2016) Patient was initially being diuriesed, however due to the patient's hypotension , she is no longer on a dieretic agent. -Conservative fluid hydration at the moment. -Will continue to monitor closely. RESP #Respiratory distress Patient was noted to desaturate earlier this morning and was placed on a non- rebreather. She does not appear in acute respiratory distress at this time and is not utilizing accessory muscles. -Continue non-rebreather and ween down as tolerated. -Close monitoring of the patient's O2 saturation. -Should the patient worsen, will consider starting bipap vs intubation although less likely given her clinical appearance. -Will continue to monitor. GI #Elevated Liver Enzymes -Will obtain RUQ US to evaluate further. -Will continue to monitor and trend. Renal No issues currently -Will continue to monitor bun/creatinine. ID #Sepsis Patient noted to be febrile earlier this morning with hypotension concerning for sepsis or septic shock. Chest plain film demonstrates bilateral pleural effusions as well as findings concerning for a possible pneumonia. Possible sources of the patient's infection could be pneumonia vs. UTI. Blood cultures and urine cultures were sent. Blood cultures are growing gram positive bacilli. -Continue zosyn for antibiotic coverage. -Continue to manage fever with tylenol. -Serial CXR. -Will give a fluid bolus given elevated latic acid. -Follow up on blood and urine cultures. -Will continue to monitor. MSK No issues currently FEN/GI -Replete electrolytes PRN, will monitor DISPO: Continue ICU level of care. Visit type - Emergency Visit Emergency Visit: No - New Patient This patient is new to me today: No - Critical Care Critical Care patient: Yes Total Critical Care Time (in minutes): 35 Critical Care Statement: The care of this patient involved high complexity decision making to prevent further life threatening deterioration of the patient 's condition and/or to evaluate & treat vital organ system(s) failure or risk of failure.
[2017-04-21] MEDS ORDERED: VANCOMYCIN 1,000 MG in DEXTROSE 5%-WATER - 250 ML IVPB ONE (09:00)
[2017-04-21] MEDS: LYTES/YERBA SANTA 240 ML BOTTLE MM SCH (09:31)
[2017-04-21] MEDS: AMIODARONE HCL 200 MG TABLET (FP) PO SCH ×2 (09:31→22:12)
[2017-04-21] MEDS: METOPROLOL TARTRATE 50 MG TABLET (FP) PO SCH ×2 (09:31→22:12)
[2017-04-21 10:21] LABS: ARTERIAL BLD GAS O2 SATURATION 99.8 % (90-98.9); ARTERIAL BLOOD GAS BASE EXCESS -0.9 meq/l (-2-2); ARTERIAL BLOOD GAS pH 7.36 (7.35-7.45)
[2017-04-21 10:24] LABS: ALLENS TEST POSITIVE
--- NOTE | 2017-04-21 11:05 | PN ---
Progress Note, Physician History of Present Illness: Transferred to ICU with worsening dyspnea, hypotension, fever, and agitation Febrile 102+ BP improved BC + GPR all bottles Agitated, confused Tachypneic on bipap WBC, lactic acid, LFTs elevated - Current Medication List Current Medications: Active Medications Alprazolam (Xanax -) 0.25 mg NGT Q6H PRN PRN Reason: AGITATION Last Admin: 04/21/17 07:56 Dose: 0.25 mg Amiodarone HCl (Cordarone -) 400 mg PO BID [facility] Last Admin: 04/21/17 09:31 Dose: 400 mg Piperacillin Sod/Tazobactam (Sod 3.375 gm/ Dextrose) 100 mls @ 200 mls/hr IVPB Q8H-IV SIMON PRN Reason: Protocol Last Admin: 04/21/17 09:30 Dose: 200 mls/hr Levothyroxine Sodium (Synthroid -) 75 mcg PO DAILY@0700 [facility] Last Admin: 04/21/17 06:47 Dose: 75 mcg Melatonin (Melatonin) 5 mg PO HS PRN PRN Reason: INSOMNIA Last Admin: 04/19/17 23:05 Dose: 5 mg Metoprolol Tartrate (Lopressor -) 100 mg PO BID [facility] Last Admin: 04/21/17 09:31 Dose: 100 mg Saliva Substitute (Mouthkote Solution -) 1 applic MM DAILY [facility] Last Admin: 04/21/17 09:31 Dose: 1 applic - Objective Vital Signs: Vital Signs Temperature 98.3 F 04/21/17 06:00 Pulse Rate 147 H 04/21/17 06:00 Respiratory Rate 27 H 04/21/17 06:00 Blood Pressure 135/84 04/21/17 06:00 O2 Sat by Pulse Oximetry (%) 98 04/21/17 08:50 Constitutional: Yes: No Distress Eyes: Yes: Conjunctiva Clear Cardiovascular: Yes: Regular Rate and Rhythm, Tachycardia, S1, S2 Respiratory: Yes: Diminished Gastrointestinal: Yes: Normal Bowel Sounds, Soft. No: Tenderness Edema: No Labs: CBC, BMP 04/21/17 06:30 04/21/17 06:30 INR, PTT INR 3.51 (0.82-1.09) H D 04/21/17 06:30 Fibrinogen 383.0 mg/dL (238-498) D 04/21/17 06:30 Assessment/Plan Sepsis +BC GPR ? source R/O aspiration pneumonia Elevated LFTs passive congestion v. sepsis v. biliary tract disease Lactic acidosis Rapid Afib Leukocytosis Thrombocytopenia Toxic metabolic encephalopathy Azotemia Await BC result Continue zosyn. Redose vancomycin
[2017-04-21] MEDS ORDERED: SODIUM CHLORIDE 1,000 ML IV STA (11:35)
--- NOTE | 2017-04-21 11:44 | PN ---
Progress Note (short form) - Note Progress Note: PAtient seen and examined Moaning, confused Last Vital Signs Temp Pulse Resp BP Pulse Ox 101 F H 122 H 24 123/78 96 04/21/17 08:00 04/21/17 10:00 04/21/17 10:00 04/21/17 10:00 04/21/17 11:40 Cor: RSR, No murmurs, No gallops Lungs: Clear to P&A Abd: Soft, Normal bowel sounds, No organomegaly Ext:No significant edema Abnormal Lab Results 04/20/17 04/20/17 04/21/17 11:05 16:00 06:30 WBC 13.2 H MCHC 30.7 L RDW 18.2 H Plt Count 127 L Neutrophils % 93.0 H Lymphocytes % 2.5 L D PT with INR INR PTT (Actin FS) ABG pO2 at Pt Temp ABG O2 Sat (Measured) BUN Creatinine Random Glucose Lactic Acid 2.2 H* Calcium Total Bilirubin AST Alkaline Phosphatase Total Protein Albumin Urine Ketones Trace H Urine Urobilinogen 2.0 H 04/21/17 04/21/17 04/21/17 06:30 06:30 06:30 WBC MCHC RDW Plt Count Neutrophils % Lymphocytes % PT with INR 39.70 H INR 3.51 H D PTT (Actin FS) 39.0 H D ABG pO2 at Pt Temp ABG O2 Sat (Measured) BUN 44 H Creatinine 1.7 H Random Glucose 107 H Lactic Acid 4.8 H* Calcium 7.9 L Total Bilirubin 4.3 H D AST 67 H Alkaline Phosphatase 119 H Total Protein 5.5 L Albumin 2.4 L Urine Ketones Urine Urobilinogen 04/21/17 10:10 WBC MCHC RDW Plt Count Neutrophils % Lymphocytes % PT with INR INR PTT (Actin FS) ABG pO2 at Pt Temp 368.0 H* D ABG O2 Sat (Measured) 99.8 H* BUN Creatinine Random Glucose Lactic Acid Calcium Total Bilirubin AST Alkaline Phosphatase Total Protein Albumin Urine Ketones Urine Urobilinogen Active Medications Alprazolam (Xanax -) 0.25 mg NGT Q6H PRN PRN Reason: AGITATION Last Admin: 04/21/17 07:56 Dose: 0.25 mg Amiodarone HCl (Cordarone -) 400 mg PO BID SIMON Last Admin: 04/21/17 09:31 Dose: 400 mg Piperacillin Sod/Tazobactam (Sod 3.375 gm/ Dextrose) 100 mls @ 200 mls/hr IVPB Q8H-IV SIMON PRN Reason: Protocol Last Admin: 04/21/17 09:30 Dose: 200 mls/hr Sodium Chloride (Normal Saline -) 1,000 mls @ 1,000 mls/hr IV ASDIR STA Stop: 04/21/17 12:34 Levothyroxine Sodium (Synthroid -) 75 mcg PO DAILY@0700 [facility] Last Admin: 04/21/17 06:47 Dose: 75 mcg Melatonin (Melatonin) 5 mg PO HS PRN PRN Reason: INSOMNIA Last Admin: 04/19/17 23:05 Dose: 5 mg Metoprolol Tartrate (Lopressor -) 100 mg PO BID [facility] Last Admin: 04/21/17 09:31 Dose: 100 mg Saliva Substitute (Mouthkote Solution -) 1 applic MM DAILY [facility] Last Admin: 04/21/17 09:31 Dose: 1 applic A/P 86 yo F w/ h/o CAD w/ stents, afib on xarelto, HFpEF (EF 67.8%, 2016) and HLD who 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 sepsis -- G+ bacteremia. SELMA On vanco/zosyn coagulopathy--elevated INR. Normal PTT due to congestive hepatopathy from CHF, sepsis and Vit. K deficiency . Had been on Xeralto which could elevate INR aswell
--- NOTE | 2017-04-21 11:48 | PN ---
Teaching Attending Note Name of Resident: Chester Zavala ATTENDING PHYSICIAN STATEMENT I saw and evaluated the patient. I reviewed the resident's note and discussed the case with the resident. I agree with the resident's findings and plan as documented. SUBJECTIVE: Patient seen and examined in the ICU. Agitated and confused on NIPPV. Not able to provide any information. No pressors. Noted increase in lactic acid level. OBJECTIVE: Intake & Output 04/18/17 04/19/17 04/20/17 04/21/17 23:59 23:59 23:59 23:59 Intake Total 818 582 4508 1060 Output Total 200 250 Balance -50 150 1125 1060 Weight 103 lb 103 lb 12.8 oz 114 lb 117 lb 1.6 oz Last Vital Signs Temp Pulse Resp BP Pulse Ox 101 F H 122 H 24 123/78 96 04/21/17 08:00 04/21/17 10:00 04/21/17 10:00 04/21/17 10:00 04/21/17 11:40 Home Medication List Medication Instructions Recorded Confirmed Type Lisinopril [Zestril] 2.5 mg PO DAILY 03/13/16 04/14/17 History Levothyroxine [Synthroid -] 75 mcg PO DAILY@0700 04/14/17 04/14/17 History Metoprolol Tartrate 25 mg PO DAILY 04/18/17 04/18/17 History Omeprazole 40 mg PO DAILY 04/18/17 04/18/17 History Potassium Citrate [Potassium 20 meq PO DAILY 04/18/17 04/18/17 History Citrate ER] Active Medications Alprazolam (Xanax -) 0.25 mg NGT Q6H PRN PRN Reason: AGITATION Last Admin: 04/21/17 07:56 Dose: 0.25 mg Amiodarone HCl (Cordarone -) 400 mg PO BID SIMON Last Admin: 04/21/17 09:31 Dose: 400 mg Piperacillin Sod/Tazobactam (Sod 3.375 gm/ Dextrose) 100 mls @ 200 mls/hr IVPB Q8H-IV SIMON PRN Reason: Protocol Last Admin: 04/21/17 09:30 Dose: 200 mls/hr Sodium Chloride (Normal Saline -) 1,000 mls @ 1,000 mls/hr IV ASDIR STA Stop: 04/21/17 12:34 Levothyroxine Sodium (Synthroid -) 75 mcg PO DAILY@0700 [facility] Last Admin: 04/21/17 06:47 Dose: 75 mcg Melatonin (Melatonin) 5 mg PO HS PRN PRN Reason: INSOMNIA Last Admin: 04/19/17 23:05 Dose: 5 mg Metoprolol Tartrate (Lopressor -) 100 mg PO BID [facility] Last Admin: 04/21/17 09:31 Dose: 100 mg Saliva Substitute (Mouthkote Solution -) 1 applic MM DAILY [facility] Last Admin: 04/21/17 09:31 Dose: 1 applic Gen: Agitated, confused, on NIPPV Heart: tachycardic, irregular Lung: Scattered rhonchi Abd: soft, nontender Ext: + edema Laboratory Results - last 24 hr 04/20/17 04/20/17 04/21/17 11:05 16:00 06:30 WBC 13.2 H RBC 5.09 Hgb 13.8 D Hct 45.0 MCV 88.4 MCH 27.2 MCHC 30.7 L RDW 18.2 H Plt Count 127 L MPV 8.9 Neutrophils % 93.0 H Lymphocytes % 2.5 L D Monocytes % 4.4 Eosinophils % 0.0 D Basophils % 0.1 PT with INR INR PTT (Actin FS) Fibrinogen Puncture Site ABG pH ABG pCO2 at Pt Temp ABG pO2 at Pt Temp ABG HCO3 ABG O2 Sat (Measured) ABG O2 Content ABG Base Excess José Miguel Test O2 Delivery Device Oxygen Flow Rate Vent Mode Vent Rate Mechanical Rate PEEP Pressure Support Vent Sodium Potassium Chloride Carbon Dioxide Anion Gap BUN Creatinine Creat Clearance w eGFR Random Glucose Lactic Acid 2.2 H* Calcium Phosphorus Magnesium Total Bilirubin AST ALT Alkaline Phosphatase Total Protein Albumin Urine Color Shaneka Urine Appearance Clear Urine pH 5.0 Ur Specific [place] 1.019 Urine Protein Negative Urine Glucose (UA) Negative Urine Ketones Trace H Urine Blood Negative Urine Nitrite Negative Urine Bilirubin Negative Urine Urobilinogen 2.0 H Ur Leukocyte Esterase Negative 04/21/17 04/21/17 04/21/17 06:30 06:30 06:30 WBC RBC Hgb Hct MCV MCH MCHC RDW Plt Count MPV Neutrophils % Lymphocytes % Monocytes % Eosinophils % Basophils % PT with INR INR PTT (Actin FS) Fibrinogen 383.0 D Puncture Site ABG pH ABG pCO2 at Pt Temp ABG pO2 at Pt Temp ABG HCO3 ABG O2 Sat (Measured) ABG O2 Content ABG Base Excess José Miguel Test O2 Delivery Device Oxygen Flow Rate Vent Mode Vent Rate Mechanical Rate PEEP Pressure Support Vent Sodium 142 Potassium 3.9 Chloride 105 Carbon Dioxide 22 Anion Gap 15 BUN 44 H Creatinine 1.7 H Creat Clearance w eGFR 28.63 Random Glucose 107 H Lactic Acid 4.8 H* Calcium 7.9 L Phosphorus 3.9 Magnesium 2.4 Total Bilirubin 4.3 H D AST 67 H ALT 64 Alkaline Phosphatase 119 H Total Protein 5.5 L Albumin 2.4 L Urine Color Urine Appearance Urine pH Ur Specific [place] Urine Protein Urine Glucose (UA) Urine Ketones Urine Blood Urine Nitrite Urine Bilirubin Urine Urobilinogen Ur Leukocyte Esterase 04/21/17 04/21/17 06:30 10:10 WBC RBC Hgb Hct MCV MCH MCHC RDW Plt Count MPV Neutrophils % Lymphocytes % Monocytes % Eosinophils % Basophils % PT with INR 39.70 H INR 3.51 H D PTT (Actin FS) 39.0 H D Fibrinogen Puncture Site Right radial ABG pH 7.36 D ABG pCO2 at Pt Temp 43.0 D ABG pO2 at Pt Temp 368.0 H* D ABG HCO3 24.0 ABG O2 Sat (Measured) 99.8 H* ABG O2 Content 18.4 ABG Base Excess -0.9 José Miguel Test Positive O2 Delivery Device Bipap Oxygen Flow Rate [address] Vent Rate 14 Mechanical Rate Yes PEEP 0.0 Pressure Support Vent Ipap 10 epap 5 Sodium Potassium Chloride Carbon Dioxide Anion Gap BUN Creatinine Creat Clearance w eGFR Random Glucose Lactic Acid Calcium Phosphorus Magnesium Total Bilirubin AST ALT Alkaline Phosphatase Total Protein Albumin Urine Color Urine Appearance Urine pH Ur Specific [place] Urine Protein Urine Glucose (UA) Urine Ketones Urine Blood Urine Nitrite Urine Bilirubin Urine Urobilinogen Ur Leukocyte Esterase ASSESSMENT AND PLAN: Acute Hypoxic Respiratory Failure Pneumonia Severe Sepsis Atrial Fibrillation with RVR Acute Kidney Injury Lactic Acidosis Elevated LFTs Acute on Chronic Diastolic Heart Failure Coagulopathy - continue antibiotics - f/u cultures - IVF resuscitation with boluses needed due to increasing lactic acid - monitor urine output, creatinine - trend lactate - monitor LFTs, coags - rate control - anticoagulation, target INR 2-3 - O2 to keep SpO2 >90% - Trial of VM O2 - Aspiration precautions - continue ICU monitoring Dr Laguna Critical care time spent in reviewing chart, evaluating patient and formulating plan 36 min
[2017-04-21] MEDS ORDERED: LORazepam 2 MG/ML SDV VIAL IVPUSH ONE (14:02)
[2017-04-21] MEDS ORDERED: ACETAMINOPHEN 325 MG TABLET (FP) ONE (18:16)
[2017-04-21] MEDS ORDERED: ACETAMINOPHEN 325 MG TABLET (FP) PO ONE (18:30)
--- NOTE | 2017-04-21 18:58 | PN ---
Teaching Attending Note Name of Resident: Luisito Steele ATTENDING PHYSICIAN STATEMENT time of evaluation: 12:10 PM I saw and evaluated the patient. I reviewed the resident's note and discussed the case with the resident. I agree with the resident's findings and plan as documented. SUBJECTIVE: patient seen and examined. eyes closed, moaning, unable to assess for ROS. OBJECTIVE: Vital Signs Period Temp Pulse Resp BP Sys/Gandara Pulse Ox Last 24 Hr 98.3 F-102 F 110-147 18-29 84-144/66-127 94-100 Intake & Output 04/18/17 04/19/17 04/20/17 04/21/17 23:59 23:59 23:59 23:59 Intake Total 053 287 0802 3010 Output Total 200 250 Balance -50 150 1125 3010 Weight 103 lb 103 lb 12.8 oz 114 lb 117 lb 1.6 oz General: eyes closed, moaning, mild tachypnea Chest: bibasilar rales Abdomen: soft, no new grimacing on exam, non specific moaning, positive bowel sounds, ND extremities: 2+ bilateral pedal edema CVS:S1s2 irregular, rapid Home Medication List Medication Instructions Recorded Confirmed Type Lisinopril [Zestril] 2.5 mg PO DAILY 03/13/16 04/14/17 History Levothyroxine [Synthroid -] 75 mcg PO DAILY@0700 04/14/17 04/14/17 History Metoprolol Tartrate 25 mg PO DAILY 04/18/17 04/18/17 History Omeprazole 40 mg PO DAILY 04/18/17 04/18/17 History Potassium Citrate [Potassium 20 meq PO DAILY 04/18/17 04/18/17 History Citrate ER] Active Medications Generic Name Dose Route Start Last Admin Trade Name Freq PRN Reason Stop Dose Admin Alprazolam 0.25 mg 04/21/17 07:17 04/21/17 07:56 Xanax - NGT 0.25 mg Q6H PRN Administration AGITATION Amiodarone HCl 400 mg 04/20/17 10:00 04/21/17 09:31 Cordarone - PO 400 mg BID SIMON Administration Piperacillin Sod/Tazobactam 100 mls @ 200 mls/hr 04/20/17 18:00 04/21/17 18: 18 Sod 3.375 gm/ Dextrose IVPB 200 mls/hr Q8H-IV SIMON Administration Protocol Levothyroxine Sodium 75 mcg 04/15/17 07:00 04/21/17 06:47 Synthroid - PO 75 mcg DAILY@0700 SIMON Administration Melatonin 5 mg 04/18/17 16:54 04/19/17 23:05 Melatonin PO 5 mg HS PRN Administration INSOMNIA Metoprolol Tartrate 100 mg 04/18/17 22:00 04/21/17 09:31 Lopressor - PO 100 mg BID SIMON Administration Saliva Substitute 1 applic 04/20/17 17:15 04/21/17 09:31 Mouthkote Solution - MM 1 applic DAILY SIMON Administration Laboratory Results - last 24 hr 04/21/17 04/21/17 04/21/17 06:30 06:30 06:30 WBC 13.2 H RBC 5.09 Hgb 13.8 D Hct 45.0 MCV 88.4 MCH 27.2 MCHC 30.7 L RDW 18.2 H Plt Count 127 L MPV 8.9 Neutrophils % 93.0 H Lymphocytes % 2.5 L D Monocytes % 4.4 Eosinophils % 0.0 D Basophils % 0.1 PT with INR INR PTT (Actin FS) Fibrinogen Puncture Site ABG pH ABG pCO2 at Pt Temp ABG pO2 at Pt Temp ABG HCO3 ABG O2 Sat (Measured) ABG O2 Content ABG Base Excess José Miguel Test O2 Delivery Device Oxygen Flow Rate Vent Mode Vent Rate Mechanical Rate PEEP Pressure Support Vent Sodium 142 Potassium 3.9 Chloride 105 Carbon Dioxide 22 Anion Gap 15 BUN 44 H Creatinine 1.7 H Creat Clearance w eGFR 28.63 Random Glucose 107 H Lactic Acid 4.8 H* Calcium 7.9 L Phosphorus 3.9 Magnesium 2.4 Total Bilirubin 4.3 H D AST 67 H ALT 64 Alkaline Phosphatase 119 H Total Protein 5.5 L Albumin 2.4 L 04/21/17 04/21/17 04/21/17 06:30 06:30 10:10 WBC RBC Hgb Hct MCV MCH MCHC RDW Plt Count MPV Neutrophils % Lymphocytes % Monocytes % Eosinophils % Basophils % PT with INR 39.70 H INR 3.51 H D PTT (Actin FS) 39.0 H D Fibrinogen 383.0 D Puncture Site Right radial ABG pH 7.36 D ABG pCO2 at Pt Temp 43.0 D ABG pO2 at Pt Temp 368.0 H* D ABG HCO3 24.0 ABG O2 Sat (Measured) 99.8 H* ABG O2 Content 18.4 ABG Base Excess -0.9 José Miguel Test Positive O2 Delivery Device Bipap Oxygen Flow Rate [address] Vent Rate 14 Mechanical Rate Yes PEEP 0.0 Pressure Support Vent Ipap 10 epap 5 Sodium Potassium Chloride Carbon Dioxide Anion Gap BUN Creatinine Creat Clearance w eGFR Random Glucose Lactic Acid Calcium Phosphorus Magnesium Total Bilirubin AST ALT Alkaline Phosphatase Total Protein Albumin Microbiology 04/18/17 08:00 Blood - Peripheral Venous Blood Culture - Preliminary NO GROWTH OBTAINED AFTER 72 HOURS, INCUBATION TO CONTINUE FOR 2 DAYS. 04/18/17 08:00 Blood - Peripheral Venous Blood Culture - Preliminary NO GROWTH OBTAINED AFTER 72 HOURS, INCUBATION TO CONTINUE FOR 2 DAYS. 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 Bacteremia, unclear etiology, cT A/p to address abdominal source. Worsenign lactate. IVF with caution and follow up levels. on venti mask this AM, taper as tolerated. INR worsend with xarelto, not a candidate for the same. s/p 3 days of vitamin K. Patient will likely need to be placed on heparin drip with eventual transition to coumadin when sepsis concerns resolved once INR < 2. Amiodarone loading per cardiology, metoprolol with holding parameters, caution given sepsis. earlier with gentle diuresis, now on hold given sepsis/lactic acidosis and need for hydration. Low threshold for pressors. s/p lasix and kayexalate on 04/19 with improved renal/hepatic function s/p 3 days of Vit K. CT brain 04/19 neg for acute concerns. DVTPPX on hold given supratherapeutic INR PT eval noted. PLan dispo planning once clincally improved. plan discussed with daughter at bedside in detail, all questions answered. total critical care time spent 35 min.
[2017-04-21] MEDS ORDERED: QUEtiapine FUMARATE 25 MG TABLET (FP) NGT STA (23:52)
--- NOTE | 2017-04-22 00:19 | PN ---
Progress Note, Physician Chief Complaint: Pt on PS O2; fatigued. History of Present Illness: Patient is an 86 year old female with a significant past medical history of CAD w/ stents, afib on xarelto, HFpEF (EF 67.8%, 2016) and HLD who presents to the ED for tachycardia. Patient was seen in cardiology clinic today and was found on EKG to be in afib with RVR with a rate of 160. She was subsequently sent to ER for management. Patient currently has no complaints or pain while in the ED. Denies ever having CP/SOB/palpitations. Denies F/C/N/V/D. Reports compliance with all of her medications. Allergies: None Social history: Lives with daughter. No smoking. No alcohol. No illicit drugs. Surgical history: None PMD: Dr Parrish. Statistical Programmer Analyst: Dr. Andino " - Current Medication List Current Medications: Active Medications Alprazolam (Xanax -) 0.25 mg NGT Q6H PRN PRN Reason: AGITATION Last Admin: 04/21/17 07:56 Dose: 0.25 mg Amiodarone HCl (Cordarone -) 400 mg PO BID [facility] Last Admin: 04/21/17 22:12 Dose: 400 mg Piperacillin Sod/Tazobactam (Sod 3.375 gm/ Dextrose) 100 mls @ 200 mls/hr IVPB Q8H-IV SIMON PRN Reason: Protocol Last Admin: 04/21/17 18:18 Dose: 200 mls/hr Levothyroxine Sodium (Synthroid -) 75 mcg PO DAILY@0700 [facility] Last Admin: 04/21/17 06:47 Dose: 75 mcg Melatonin (Melatonin) 5 mg PO HS PRN PRN Reason: INSOMNIA Last Admin: 04/19/17 23:05 Dose: 5 mg Metoprolol Tartrate (Lopressor -) 100 mg PO BID [facility] Last Admin: 04/21/17 22:12 Dose: 100 mg Saliva Substitute (Mouthkote Solution -) 1 applic MM DAILY [facility] Last Admin: 04/21/17 09:31 Dose: 1 applic - Objective Vital Signs: Vital Signs Temperature 100.9 F H 04/22/17 00:00 Pulse Rate 111 H 04/22/17 00:00 Respiratory Rate 20 04/22/17 00:00 Blood Pressure 110/72 04/22/17 00:00 O2 Sat by Pulse Oximetry (%) 95 04/21/17 21:00 Constitutional: Yes: Moderate Distress, Thin HENT: Yes: WNL Neck: Yes: Decreased ROM Cardiovascular: Yes: Tachycardia, Pulse Irregular, S1 (varies in intensity) Respiratory: Yes: Diminished, SOB Gastrointestinal: Yes: Soft Genitourinary: No: Anuria Musculoskeletal: Yes: Muscle Weakness Extremities: Yes: Cold Edema: No Peripheral Pulses WNL: No Peripheral Pulses: Left Doralis Pedis: 1+, Right Dorsalis Pedis: 1+ Neurological: Yes: Confusion, Weakness Psychiatric: Yes: Other Labs: CBC, BMP 04/21/17 06:30 04/21/17 06:30 INR, PTT INR 3.51 (0.82-1.09) H D 04/21/17 06:30 Fibrinogen 383.0 mg/dL (238-498) D 04/21/17 06:30 Abnormal Lab Results 04/21/17 04/21/17 04/21/17 06:30 06:30 06:30 WBC 13.2 H MCHC 30.7 L RDW 18.2 H Plt Count 127 L Neutrophils % 93.0 H Lymphocytes % 2.5 L D PT with INR INR PTT (Actin FS) ABG pO2 at Pt Temp ABG O2 Sat (Measured) BUN 44 H Creatinine 1.7 H Random Glucose 107 H Lactic Acid 4.8 H* Calcium 7.9 L Total Bilirubin 4.3 H D AST 67 H Alkaline Phosphatase 119 H Total Protein 5.5 L Albumin 2.4 L 04/21/17 04/21/17 06:30 10:10 WBC MCHC RDW Plt Count Neutrophils % Lymphocytes % PT with INR 39.70 H INR 3.51 H D PTT (Actin FS) 39.0 H D ABG pO2 at Pt Temp 368.0 H* D ABG O2 Sat (Measured) 99.8 H* BUN Creatinine Random Glucose Lactic Acid Calcium Total Bilirubin AST Alkaline Phosphatase Total Protein Albumin - ....Imaging Chest X-ray: Image Reviewed Other: Image Reviewed (telemetry: AF; periods of RVR) Problem List - Problems (1) Atrial fibrillation with RVR Assessment/Plan: Amiodarone and metoprolol given this morning, after being held yesterday due to hypotension. On fluids; follow carefully, due to poor LV function. INR shifted; markedly elevated (after rivaroxaban; systolic CHF with liver stress, sepsis are other likely contributing factors). Code(s): I48.91 - UNSPECIFIED ATRIAL FIBRILLATION (2) Acute on chronic systolic and diastolic heart failure, NYHA class 2 Assessment/Plan: On amiodarone and metoprolol. Problematic giving other agents (e.g. ACEI, RAAS, hydralazine + isordil) at the present time due to renal insufficiency and relative hypotension. ECHO: significant LV dysfunction. F/u CXR today showed no significant change from initial CXR (infiltrate, pleural effusion) F/u BUn/Cr, electrolytes, Is and Os, daily weight. Code(s): I50.43 - ACUTE ON CHRONIC COMBINED SYSTOLIC AND DIASTOLIC HRT FAIL (3) CAD (coronary artery disease) Code(s): I25.10 - ATHSCL HEART DISEASE OF [place] CORONARY ARTERY W/O ANG PCTRS (4) Hypothyroid Assessment/Plan: elevated TSH; free T4 is also mildly elevated. Following thryoid function is especially important when on amiodarone. Code(s): E03.9 - HYPOTHYROIDISM, UNSPECIFIED (5) Renal insufficiency Assessment/Plan: f/u carefully (on furosemide for acute CHF); avoid excessive dehydration. Now on fluids due to sepsis, increasing lactate. Code(s): N28.9 - DISORDER OF KIDNEY AND URETER, UNSPECIFIED (6) Fever Assessment/Plan: Sepsis, with rising lactate. Continued febrile state. On fluids (guard against "cardiac overload"; pt with severely reduced LVEF). Antibiotics per ID; antipyretics. Code(s): R50.9 - FEVER, UNSPECIFIED (7) Acute respiratory failure Code(s): J96.00 - ACUTE RESPIRATORY FAILURE, UNSP W HYPOXIA OR HYPERCAPNIA
[2017-04-22] MEDS ORDERED: PT OWN MED DRAWER 7, Y5N ONE ×4 (00:46→21:04)
[2017-04-22] MEDS: PIPERACILLIN/TAZOB 3.375 GM 3.375 GM in DEXTROSE 5%-WATER - 100 ML IVPB SCH ×2 (01:00→09:16)
[2017-04-22] MEDS ORDERED: VANCOMYCIN 1,000 MG in DEXTROSE 5%-WATER - 250 ML IVPB ONE (04:48)
--- NOTE | 2017-04-22 05:44 | PN ---
Physical Exam: SUBJECTIVE: Patient seen and examined by me this AM - Pt remains altered, however states she feel fine with no complaints. Less agitated, tremulous today. Given seroquel again overnight and placed on bipap 14 /50%/10/5, tolerating well with preserved sats 95-100%. WBC resolving 13.2 -> 10.1. Febrile overnight to 101.5. Tele with multiple runs of NSVT, afib. OBJECTIVE: Vital Signs Intake & Output 04/19/17 04/20/17 04/21/17 04/22/17 23:59 23:59 23:59 23:59 Intake Total 150 1375 3010 Output Total 250 Balance 150 1125 3010 Weight 47.083 kg 51.71 kg 53.116 kg 50.394 kg Period Temp Pulse Resp BP Sys/Gandara Pulse Ox Last 24 Hr 98.3 F-101.5 F 104-147 18-28 103-145/68-95 95-100 GENERAL: Elderly woman lying in bed. A&Ox1, resting comfortably. on Bipap. HEAD: NG tube in place. Normal with no signs of trauma. EYES: Pupils equal, round and reactive to light, extraocular movements intact, sclera anicteric, conjunctiva clear. No lid lag. EARS, NOSE, THROAT: Ears normal, nares patent, oropharynx clear without exudates. Moist mucous membranes. NECK: Normal range of motion, supple without lymphadenopathy, or masses. LUNGS: Decreased bibasilar breath sounds, BL coarse rales at lung bases. No accessory muscle use. HEART: Irregularly Irregular, normal S1 and S2 without murmur, rub or gallop. ABDOMEN: Soft, nontender, not distended, normoactive bowel sounds, no guarding, no rebound, no masses. No hepatomegaly or splenomegaly. MUSCULOSKELETAL: Normal range of motion at all joints. No bony deformities or tenderness. No CVA tenderness. UPPER EXTREMITIES: 2+ pulses, cool to touch. No cyanosis. No clubbing. No peripheral edema. LOWER EXTREMITIES: 1+ pitting edema BL to knees, improved. 2+ pulses, cool to touch. No calf tenderness. BL superficial varicose veins on anterior shins. NEUROLOGICAL: Cranial nerves II-XII intact. Speech fluid, but tangential. Gait not observed. + kernig sign PSYCHIATRIC: Less agitated today. Poor eye contact. Appropriate mood and affect. SKIN: Warm, dry, normal turgor, no rashes or lesions noted, normal capillary refill. Laboratory Results - last 24 hr CBC, BMP 04/22/17 05:10 04/22/17 05:10 04/21/17 06:30 04/21/17 06:30 04/21/17 04/21/17 04/21/17 06:30 06:30 06:30 WBC 13.2 H RBC 5.09 Hgb 13.8 D Hct 45.0 MCV 88.4 MCH 27.2 MCHC 30.7 L RDW 18.2 H Plt Count 127 L MPV 8.9 Neutrophils % 93.0 H Lymphocytes % 2.5 L D Monocytes % 4.4 Eosinophils % 0.0 D Basophils % 0.1 PT with INR INR PTT (Actin FS) Fibrinogen Puncture Site ABG pH ABG pCO2 at Pt Temp ABG pO2 at Pt Temp ABG HCO3 ABG O2 Sat (Measured) ABG O2 Content ABG Base Excess José Miguel Test O2 Delivery Device Oxygen Flow Rate Vent Mode Vent Rate Mechanical Rate PEEP Pressure Support Vent Sodium 142 Potassium 3.9 Chloride 105 Carbon Dioxide 22 Anion Gap 15 BUN 44 H Creatinine 1.7 H Creat Clearance w eGFR 28.63 Random Glucose 107 H Lactic Acid 4.8 H* Calcium 7.9 L Phosphorus 3.9 Magnesium 2.4 Total Bilirubin 4.3 H D AST 67 H ALT 64 Alkaline Phosphatase 119 H Total Protein 5.5 L Albumin 2.4 L 04/21/17 04/21/17 04/21/17 06:30 06:30 10:10 WBC RBC Hgb Hct MCV MCH MCHC RDW Plt Count MPV Neutrophils % Lymphocytes % Monocytes % Eosinophils % Basophils % PT with INR 39.70 H INR 3.51 H D PTT (Actin FS) 39.0 H D Fibrinogen 383.0 D Puncture Site Right radial ABG pH 7.36 D ABG pCO2 at Pt Temp 43.0 D ABG pO2 at Pt Temp 368.0 H* D ABG HCO3 24.0 ABG O2 Sat (Measured) 99.8 H* ABG O2 Content 18.4 ABG Base Excess -0.9 José Miguel Test Positive O2 Delivery Device Bipap Oxygen Flow Rate [address] Vent Rate 14 Mechanical Rate Yes PEEP 0.0 Pressure Support Vent Ipap 10 epap 5 Sodium Potassium Chloride Carbon Dioxide Anion Gap BUN Creatinine Creat Clearance w eGFR Random Glucose Lactic Acid Calcium Phosphorus Magnesium Total Bilirubin AST ALT Alkaline Phosphatase Total Protein Albumin 04/21/17 18:15 WBC RBC Hgb Hct MCV MCH MCHC RDW Plt Count MPV Neutrophils % Lymphocytes % Monocytes % Eosinophils % Basophils % PT with INR INR PTT (Actin FS) Fibrinogen Puncture Site ABG pH ABG pCO2 at Pt Temp ABG pO2 at Pt Temp ABG HCO3 ABG O2 Sat (Measured) ABG O2 Content ABG Base Excess José Miguel Test O2 Delivery Device Oxygen Flow Rate Vent Mode Vent Rate Mechanical Rate PEEP Pressure Support Vent Sodium Potassium Chloride Carbon Dioxide Anion Gap BUN Creatinine Creat Clearance w eGFR Random Glucose Lactic Acid 1.9 Calcium Phosphorus Magnesium Total Bilirubin AST ALT Alkaline Phosphatase Total Protein Albumin Active Medications Generic Name Dose Route Start Last Admin Trade Name Freq PRN Reason Stop Dose Admin Alprazolam 0.25 mg 04/21/17 07:17 04/21/17 07:56 Xanax - NGT 0.25 mg Q6H PRN Administration AGITATION Amiodarone HCl 400 mg 04/20/17 10:00 04/21/17 22:12 Cordarone - PO 400 mg BID SIMON Administration Piperacillin Sod/Tazobactam 100 mls @ 200 mls/hr 04/20/17 18:00 04/22/17 01: 00 Sod 3.375 gm/ Dextrose IVPB 200 mls/hr Q8H-IV SIMON Administration Protocol Vancomycin HCl 1,000 mg/ 250 mls @ 250 mls/hr 04/22/17 04:48 04/22/17 05:02 Dextrose IVPB 04/22/17 05:47 250 mls/hr ONCE ONE Administration Protocol Levothyroxine Sodium 75 mcg 04/15/17 07:00 04/21/17 06:47 Synthroid - PO 75 mcg DAILY@0700 SIMON Administration Melatonin 5 mg 04/18/17 16:54 04/19/17 23:05 Melatonin PO 5 mg HS PRN Administration INSOMNIA Metoprolol Tartrate 100 mg 04/18/17 22:00 04/21/17 22:12 Lopressor - PO 100 mg BID SIMON Administration Saliva Substitute 1 applic 04/20/17 17:15 04/21/17 09:31 Mouthkote Solution - MM 1 applic DAILY SIMON Administration Microbiology 04/18/17 08:00 Blood - Peripheral Venous Blood Culture - Preliminary NO GROWTH OBTAINED AFTER 72 HOURS, INCUBATION TO CONTINUE FOR 2 DAYS. 04/18/17 08:00 Blood - Peripheral Venous Blood Culture - Preliminary NO GROWTH OBTAINED AFTER 72 HOURS, INCUBATION TO CONTINUE FOR 2 DAYS. 04/20/17 08:30 Blood - Peripheral Venous Blood Culture - Preliminary Pending Organism 04/20/17 09:15 Blood - Peripheral Venous Blood Culture - Preliminary Pending Organism 04/20/17 07:55 Nasopharyngeal Swab Influenza Types A,B Antigen (SÁNCHEZ) - Final 04/20/17 07:55 Nasopharyngeal Swab - Final 04/15/17 04:30 Nasopharyngeal Swab Influenza Types A,B Antigen (SÁNCHEZ) - Final 04/15/17 04:30 Nasopharyngeal Swab - Final Prior echo in 2016 -> pulm htn, severe TR, EF ~67%, dilated atria Echo 02/10 - LVEF reduced in setting of afib with RVR, moderate MR, moderate TR , RV pressure 40-50, LAE Persantine stress test 02/14 - relatively unremarkable with minimal ischemic changes. EKG 04/14 - Afib w/ RVR, no ST changes, TWI in lateral leads, Rate 164 CXR 04/14 - Cardiomegaly, mild congestion, BL pleural effusions ABdominal U/S 04/16 - R pleural effusion; fatty infiltrates of liver; atrophic kidneys with no evidence of hydronephrosis EKG 04/17 - Afib w/ RVR. rate 110, NAD, QTC 446 CXR 04/18 - no change CT head 04/19 - no acute bleed or mass effect; mild atropy EKG 04/19 - Afib/flutter, rate of 106, NAD, QTC 470, no TW changes CXR 04/20 - Right pleural effusion with compressive atelectasis. Elevated left diaphragm. Questionable left pleural effusion. No pneumothorax is seen CXR 04/21 - Since the prior study of 04/20/2017, the feeding tube is been inserted and the tip is in the left upper quadrant/stomach. The patient is rotated to the right. There is a large heart, unfolded aorta and some bibasilar changes. Correlation recommended. CXR 04/22 - Since prior study of 04/21/2017, the feeding tube remains in place. There appears to be a progressive left infiltrate with fluid and/or atelectasis. There is a large heart with sclerotic knob. Correlation recommended. Ab/pelvis CT 04/21 - Impression: 1. Circumferentially prominent wall in the ascending colon and hepatic flexure may be attributed to underdistention or an infectious versus inflammatory colitis. Please correlate clinically. 2. Gastric tube in proper position. No bowel obstruction. No evidence of diverticulitis. 3. Cholelithiasis and/or sludge within the gallbladder. Moderate distention of the gallbladder may be physiologic and/or secondary to dyskinesia. Gallbladder wall thickening is nonspecific and may be secondary to right heart failure, cholecystitis and/or adjacent right upper quadrant inflammatory processes. Please correlate clinically and with right upper quadrant sonogram. 4. Extensive anasarca/body wall edema. Diffuse mesenteric haziness, confluent presacral fluid and free fluid within the pelvis may be secondary to heart failure. Please correlate clinically. 5. An approximately 3.6 x 2.7 cm indeterminant left adrenal gland mass is nonspecific with a broad differential including benign and malignant lesions. 6. Multichamber cardiomegaly with predominant enlargement of the right atrium. Please correlate with echocardiogram. 7. Incompletely imaged layering pleural effusions with airspace opacities in both lung bases. Please correlate with dedicated imaging of the chest. 8. T12 and L4 compression deformities as described above are of indeterminant chronicity. 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 xarelto per cardiology for AC after sepsis resolves #acute on chronic systolic CHF - CT abdomen with diffuse anasarca /; LE edema improved this AM - daily weights, I&O's - Metoprolol 100mg BID - No lasix today; will d/c fluids; #Hypokalemia - 3.0 this AM - Repleted PO and IV in AM; f/u PM BMP - trend K; replete as needed - Daily BMPs #SELMA- resolved, 1.7 -> 0.9 today - Trend Cr - Daily BMPs #HTN -currently hypotensive -hold lisinopril and continue other meds with close BP monitoring #supratherapeutic INR, Abd U/S wnl - likely secondary to congestive hepatopathy -Heme consulted. Appreciate recommendations -Hold AC in setting of sepsis, elevated INR - Finished 3 day course of Vit K #hypothyroidism - c/w Synthroid 75 mcg qd #DVT PPX Xarelto when sepsis resolves #FEN: NPO Daily BMP Na controlled diet Full code dispo to ICU for further management Plan d/w attending, Dr. Leeroy Steele, PGY1 Visit type - Emergency Visit Emergency Visit: Yes ED Registration Date: 04/14/17 Care time: The patient presented to the Emergency Department on the above date and was hospitalized for further evaluation of their emergent condition. - New Patient This patient is new to me today: No - Critical Care Critical Care patient: Yes Total Critical Care Time (in minutes): 35 Critical Care Statement: The care of this patient involved high complexity decision making to prevent further life threatening deterioration of the patient 's condition and/or to evaluate & treat vital organ system(s) failure or risk of failure. - Discharge Referral Referred to [facility] Med [facility].: No
[2017-04-22 06:12] LABS: BASO % 0.5 % (0-2.0); EOS % 0.9 % (0-4.5); HEMATOCRIT 40.7 % (32.4-45.2); LYMPH % 2.9 % (8-40); MCH 27.9 pg (25.7-33.7); MCHC 31.8 g/dl (32.0-36.0); MEAN CELL VOLUME 87.7 fl (80-96); MONO % 3.7 % (3.8-10.2); PLATELET COUNT 116 K/MM3 (134-434); RBC 4.65 M/mm3 (3.60-5.2); RDW 17.7 % (11.6-15.6); WHITE BLOOD COUNT 10.1 K/mm3 (4.0-10.0)
[2017-04-22 06:28] LABS: INR 1.97 (0.82-1.09); PROTHROMBIN TIME (PATIENT) 22.3 SEC (9.98-11.88)
[2017-04-22] MEDS: LEVOTHYROXINE NA 75 MCG TABLET (FP) PO SCH (06:30)
[2017-04-22 06:31] LABS: ACTIVATED PTT 34.6 SECONDS (26.9-34.4)
[2017-04-22 07:14] LABS: ALBUMIN 1.9 g/dl (3.4-5.0); ALK PHOS 80 U/L (45-117); ANION GAP 9 (8-16); BILIRUBIN,TOTAL 2.7 mg/dL (0.2-1.0); BLOOD UREA NITROGEN 32 mg/dL (7-18); CHLORIDE 108 mmol/L (98-107); CO2 24 mmol/L (21-32); CREATININE 0.9 mg/dL (0.55-1.02); GLUCOSE,RANDOM 101 mg/dL (74-106); MAGNESIUM 1.9 mg/dL (1.8-2.4); PHOSPHOROUS 2.3 mg/dL (2.5-4.9); SGOT/AST 37 U/L (15-37); SGPT/ALT 46 U/L (12-78); SODIUM 141 mmol/L (136-145); TOT PROT 4.2 g/dl (6.4-8.2)
[2017-04-22 07:37] LABS: CALCIUM 6.9 mg/dL (8.5-10.1)
--- NOTE | 2017-04-22 07:56 | PN ---
Progress Note, Physician Chief Complaint: ID Vancomycin and Zosyn per Dr Ragland In obvious respiratory distress wearing Venti mask Fevers on and off the last 48 hours on antibiotics ? - Current Medication List Current Medications: Active Medications Alprazolam (Xanax -) 0.25 mg NGT Q6H PRN PRN Reason: AGITATION Last Admin: 04/21/17 07:56 Dose: 0.25 mg Amiodarone HCl (Cordarone -) 400 mg PO BID [facility] Last Admin: 04/21/17 22:12 Dose: 400 mg Piperacillin Sod/Tazobactam (Sod 3.375 gm/ Dextrose) 100 mls @ 200 mls/hr IVPB Q8H-IV SIMON PRN Reason: Protocol Last Admin: 04/22/17 01:00 Dose: 200 mls/hr Levothyroxine Sodium (Synthroid -) 75 mcg PO DAILY@0700 [facility] Last Admin: 04/22/17 06:30 Dose: 75 mcg Melatonin (Melatonin) 5 mg PO HS PRN PRN Reason: INSOMNIA Last Admin: 04/19/17 23:05 Dose: 5 mg Metoprolol Tartrate (Lopressor -) 100 mg PO BID [facility] Last Admin: 04/21/17 22:12 Dose: 100 mg Saliva Substitute (Mouthkote Solution -) 1 applic MM DAILY [facility] Last Admin: 04/21/17 09:31 Dose: 1 applic - Objective Vital Signs: Vital Signs Temperature 100.2 F H 04/22/17 06:00 Pulse Rate 111 H 04/22/17 06:00 Respiratory Rate 20 04/22/17 06:00 Blood Pressure 113/81 04/22/17 06:00 O2 Sat by Pulse Oximetry (%) 95 04/21/17 21:00 Constitutional: Yes: Moderate Distress Neck: Yes: WNL, Supple Cardiovascular: Yes: Tachycardia, Pulse Irregular, S1, S2 Respiratory: Yes: WNL, Regular, CTA Bilaterally. No: Rales, Rhonchi Gastrointestinal: Yes: WNL, Normal Bowel Sounds, Soft. No: Tenderness, Tenderness, Rebound Extremities: Yes: Cold Edema: No Labs: CBC, BMP 04/22/17 05:10 04/22/17 05:10 INR, PTT INR 1.97 (0.82-1.09) H D 04/22/17 05:10 Fibrinogen 383.0 mg/dL (238-498) D 04/21/17 06:30 Problem List - Problems (1) Sepsis Code(s): A41.9 - SEPSIS, UNSPECIFIED ORGANISM (2) Atrial fibrillation with RVR Code(s): I48.91 - UNSPECIFIED ATRIAL FIBRILLATION (3) Bacteremia due to Gram-positive bacteria Code(s): R78.81 - BACTEREMIA Assessment/Plan Microbiology 04/18/17 08:00 Blood - Peripheral Venous Blood Culture - Preliminary NO GROWTH OBTAINED AFTER 72 HOURS, INCUBATION TO CONTINUE FOR 2 DAYS. Laboratory Tests 04/14/17 04/20/17 04/20/17 18:19 06:15 09:15 WBC Hgb Hct Plt Count INR 5.13 H* D Creat Clearance w eGFR Lactic Acid 2.7 H* Total Bilirubin AST Alkaline Phosphatase Albumin Ur Leukocyte Esterase 2+ H Urine WBC (Auto) 4 Urine RBC (Auto) <1 04/20/17 04/21/17 04/21/17 16:00 06:30 06:30 WBC Hgb Hct Plt Count INR 3.51 H D Creat Clearance w eGFR Lactic Acid 2.2 H* 4.8 H* Total Bilirubin AST Alkaline Phosphatase Albumin Ur Leukocyte Esterase Urine WBC (Auto) Urine RBC (Auto) 04/21/17 04/22/17 04/22/17 18:15 05:10 05:10 WBC 10.1 H Hgb 13.0 Hct 40.7 Plt Count 116 L INR 1.97 H D Creat Clearance w eGFR Lactic Acid 1.9 Total Bilirubin AST Alkaline Phosphatase Albumin Ur Leukocyte Esterase Urine WBC (Auto) Urine RBC (Auto) 04/22/17 05:10 WBC Hgb Hct Plt Count INR Creat Clearance w eGFR 59.65 Lactic Acid Total Bilirubin 2.7 H D AST 37 Alkaline Phosphatase 80 Albumin 1.9 L Ur Leukocyte Esterase Urine WBC (Auto) Urine RBC (Auto) Assessment Sepsis syndrome etiology unclear Thrombocytopenia assume sepsis related Gram positive rods in blood culture interesting as she was not febrile nor bacteremic the day before ?? Postulating a cotaminant also does not make sense as 4/4 bottle positive Coagulopathy Atrila fibrillation Plan Await final culture reports Obtain vanco level this am and start daily dose Vanco Zosyn empiric for sepsis unknown etiology Discussed with Housestaff Critical care time 35 minutes Suraj CHRISTENSEN
--- NOTE | 2017-04-22 08:25 | PN ---
Progress Note, Physician Chief Complaint: Coverage for [employer] TELE: AF, rate in 115-120 History of Present Illness: febrile - Current Medication List Current Medications: Active Medications Alprazolam (Xanax -) 0.25 mg NGT Q6H PRN PRN Reason: AGITATION Last Admin: 04/21/17 07:56 Dose: 0.25 mg Amiodarone HCl (Cordarone -) 400 mg PO BID [facility] Last Admin: 04/21/17 22:12 Dose: 400 mg Piperacillin Sod/Tazobactam (Sod 3.375 gm/ Dextrose) 100 mls @ 200 mls/hr IVPB Q8H-IV SIMON PRN Reason: Protocol Last Admin: 04/22/17 01:00 Dose: 200 mls/hr Levothyroxine Sodium (Synthroid -) 75 mcg PO DAILY@0700 [facility] Last Admin: 04/22/17 06:30 Dose: 75 mcg Melatonin (Melatonin) 5 mg PO HS PRN PRN Reason: INSOMNIA Last Admin: 04/19/17 23:05 Dose: 5 mg Metoprolol Tartrate (Lopressor -) 100 mg PO BID [facility] Last Admin: 04/21/17 22:12 Dose: 100 mg Saliva Substitute (Mouthkote Solution -) 1 applic MM DAILY [facility] Last Admin: 04/21/17 09:31 Dose: 1 applic - Objective Vital Signs: Vital Signs Temperature 100.2 F H 04/22/17 06:00 Pulse Rate 111 H 04/22/17 06:00 Respiratory Rate 20 04/22/17 06:00 Blood Pressure 113/81 04/22/17 06:00 O2 Sat by Pulse Oximetry (%) 95 04/21/17 21:00 Cardiovascular: Yes: Pulse Irregular Respiratory: Yes: Other (= breath sounds bilaterally) Gastrointestinal: Yes: Soft Edema: No Labs: CBC, BMP 04/22/17 05:10 04/22/17 05:10 INR, PTT INR 1.97 (0.82-1.09) H D 04/22/17 05:10 Fibrinogen 303.0 mg/dL (238-498) D 04/22/17 05:10 - ....Imaging EKG: Image Reviewed Assessment/Plan Problems (1) Atrial fibrillation with RVR Assessment/Plan: Amiodarone and metoprolol INR markedly elevated (after rivaroxaban; systolic CHF with liver stress, sepsis are other likely contributing factors). Code(s): I48.91 - UNSPECIFIED ATRIAL FIBRILLATION (2) Acute on chronic systolic and diastolic heart failure, NYHA class 2 Assessment/Plan: On amiodarone and metoprolol. Problematic giving other agents (e.g. ACEI, RAAS, hydralazine + isordil) at the present time due to renal insufficiency and relative hypotension. ECHO: significant LV dysfunction. Code(s): I50.43 - ACUTE ON CHRONIC COMBINED SYSTOLIC AND DIASTOLIC HRT FAIL (3) CAD (coronary artery disease) Code(s): I25.10 - ATHSCL HEART DISEASE OF [place] CORONARY ARTERY W/O ANG PCTRS (4) Renal insufficiency Assessment/Plan: f/u carefully (on furosemide for acute CHF); avoid excessive dehydration. Now on fluids due to sepsis, increasing lactate. Code(s): N28.9 - DISORDER OF KIDNEY AND URETER, UNSPECIFIED (5) Fever and gram + bacteremia vs contaminant?: Assessment/Plan: Sepsis, with rising lactate. Continued febrile state. On fluids (guard against "cardiac overload"; pt with severely reduced LVEF). Antibiotics per ID; antipyretics. Code(s): R50.9 - FEVER, UNSPECIFIED (7) Acute respiratory failure Code(s): J96.00 - ACUTE RESPIRATORY FAILURE, UNSP W HYPOXIA OR HYPERCAPNIA
--- NOTE | 2017-04-22 08:53 | PN ---
Progress Note (short form) - Note Progress Note: PULMONARY/CCM Pt seen and examined in the ICU. Confused, agitated on ventimask 40%. Persistently febrile. Last Vital Signs Temp Pulse Resp BP Pulse Ox 100.2 F H 111 H 20 113/81 95 04/22/17 06:00 04/22/17 06:00 04/22/17 06:00 04/22/17 06:00 04/21/17 21:00 Intake & Output 04/19/17 04/20/17 04/21/17 04/22/17 23:59 23:59 23:59 23:59 Intake Total 150 1375 3010 360 Output Total 250 Balance 150 1125 3010 360 Weight 47.083 kg 51.71 kg 53.116 kg 50.394 kg Gen: tachypneic at rest Heart: tachycardic, regular Lung: scattered rhonchi Abd: soft, nontender Ext: no edema CBC, BMP 04/22/17 05:10 04/22/17 05:10 INR, PTT INR 1.97 (0.82-1.09) H D 04/22/17 05:10 Fibrinogen 303.0 mg/dL (238-498) D 04/22/17 05:10 Active Medications Alprazolam (Xanax -) 0.25 mg NGT Q6H PRN PRN Reason: AGITATION Last Admin: 04/21/17 07:56 Dose: 0.25 mg Amiodarone HCl (Cordarone -) 400 mg PO BID [facility] Last Admin: 04/21/17 22:12 Dose: 400 mg Piperacillin Sod/Tazobactam (Sod 3.375 gm/ Dextrose) 100 mls @ 200 mls/hr IVPB Q8H-IV SIMON PRN Reason: Protocol Last Admin: 04/22/17 01:00 Dose: 200 mls/hr Potassium Chloride (Potassium Chloride 10 Meq Premix Ivpb -) 10 meq in 100 mls @ 100 mls/hr IVPB Q60M [facility] Stop: 04/22/17 11:44 Levothyroxine Sodium (Synthroid -) 75 mcg PO DAILY@0700 [facility] Last Admin: 04/22/17 06:30 Dose: 75 mcg Melatonin (Melatonin) 5 mg PO HS PRN PRN Reason: INSOMNIA Last Admin: 04/19/17 23:05 Dose: 5 mg Metoprolol Tartrate (Lopressor -) 100 mg PO BID [facility] Last Admin: 04/21/17 22:12 Dose: 100 mg Potassium Chloride (K-Dur -) 40 meq PO ONCE ONE Stop: 04/22/17 08:41 Saliva Substitute (Mouthkote Solution -) 1 applic MM DAILY [facility] Last Admin: 04/21/17 09:31 Dose: 1 applic A/P Acute Hypoxic Respiratory Failure Acute Colitis r/o Pneumonia Bacteremia Severe Sepsis Atrial Fibrillation with RVR Acute Kidney Injury improving Lactic Acidosis resolved Elevated LFTs Acute on Chronic Diastolic Heart Failure Coagulopathy Hypothyroidism - continue antibiotics - f/u cultures - IVF boluses as needed - monitor urine output, creatinine - monitor LFTs, coags - rate control - anticoagulation, target INR 2-3 - replete lytes - O2 to keep SpO2 >90% - continue ICU monitoring critical care time spent in reviewing chart, evaluating patient and formulating plan 35 min
[2017-04-22] MEDS ORDERED: POTASSIUM CHLORIDE TABS 20 MEQ TABLET.ER (FP) PO ONE (09:00)
[2017-04-22] MEDS: AMIODARONE HCL 200 MG TABLET (FP) PO SCH ×2 (09:16→21:02)
[2017-04-22] MEDS: ALPRAZolam 0.25 MG TABLET NGT PRN (09:16)
[2017-04-22] MEDS: METOPROLOL TARTRATE 50 MG TABLET (FP) PO SCH ×2 (09:16→21:02)
[2017-04-22] MEDS: LYTES/YERBA SANTA 240 ML BOTTLE MM SCH (09:17)
[2017-04-22] MEDS ORDERED: QUEtiapine FUMARATE 25 MG TABLET (FP) PO SCH (10:00)
[2017-04-22] MEDS: POTASSIUM CHLORIDE 10 MEQ in SODIUM CHLORIDE 100 ML IVPB SCH ×3 (10:58→13:27)
--- NOTE | 2017-04-22 11:00 | PN ---
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 This is quite surprising given the fact that she has bee hospitalized since 04/14. Source ? GI origin. Given alteration of metal status Meningitis strongly considered. Plan Repeat blood cultures Recommend lumbar puncture Treatment of Choice Ampicillin and Gentamicin MRI of the brain ( meningoencephaltis) Suraj CHRISTENSEN Problem List - Problems (1) Sepsis Code(s): A41.9 - SEPSIS, UNSPECIFIED ORGANISM (2) Atrial fibrillation with RVR Code(s): I48.91 - UNSPECIFIED ATRIAL FIBRILLATION (3) Bacteremia due to Gram-positive bacteria Code(s): R78.81 - BACTEREMIA
[2017-04-22] MEDS: SODIUM CHLORIDE IVPB SCH ×2 (12:24→17:56)
[2017-04-22] MEDS: AMPICILLIN - 2 GM in SODIUM CHLORIDE 100 ML IVPB SCH ×3 (12:24→21:02)
[2017-04-22] MEDS: GENTAMICIN IVPB SCH ×2 (12:24→17:56)
--- NOTE | 2017-04-22 13:12 | PN ---
Teaching Attending Note Name of Resident: Luisito Steele ATTENDING PHYSICIAN STATEMENT Time of evaluation: 9:00 AM SUBJECTIVE: Patient seen and examined. eyes closed, non specific moaning,unable to assess for ROS. OBJECTIVE: Vital Signs Period Temp Pulse Resp BP Sys/Gandara Pulse Ox Last 24 Hr 100 F-101.5 F 104-116 18-25 101-145/62-96 94-100 Intake & Output 04/19/17 04/20/17 04/21/17 04/22/17 23:59 23:59 23:59 23:59 Intake Total 150 1375 3010 360 Output Total 250 Balance 150 1125 3010 360 Weight 103 lb 12.8 oz 114 lb 117 lb 1.6 oz 111 lb 1.6 oz general: looks more edematous today, moaning in bed when attempt examine CVS:S1s2 irregular, tachycardic Chest: bibasilar rales, limited exam given her lack of co-peration and moaning Abdomen: soft, ND, non specific moaning on exam, no voluntary or involuntary guarding or rigidity, positive bowel sounds extremities: improved Pedal edema! Home Medication List Medication Instructions Recorded Confirmed Type Lisinopril [Zestril] 2.5 mg PO DAILY 03/13/16 04/14/17 History Levothyroxine [Synthroid -] 75 mcg PO DAILY@0700 04/14/17 04/14/17 History Metoprolol Tartrate 25 mg PO DAILY 04/18/17 04/18/17 History Omeprazole 40 mg PO DAILY 04/18/17 04/18/17 History Potassium Citrate [Potassium 20 meq PO DAILY 04/18/17 04/18/17 History Citrate ER] Active Medications Generic Name Dose Route Start Last Admin Trade Name Freq PRN Reason Stop Dose Admin Alprazolam 0.25 mg 04/21/17 07:17 04/22/17 09:16 Xanax - NGT 0.25 mg Q6H PRN Administration AGITATION Amiodarone HCl 400 mg 04/20/17 10:00 04/22/17 09:16 Cordarone - PO 400 mg BID SIMON Administration Ampicillin Sodium 2 gm/ Sodium 100 mls @ 200 mls/hr 04/22/17 12:00 04/22/17 12:24 Chloride IVPB 200 mls/hr Q4H-IV SIMON Administration Gentamicin Sulfate 30 mg/ 100.75 mls @ 100.75 mls/hr 04/22/17 12:00 04/22/17 12:24 Sodium Chloride IVPB 100.75 mls/hr Q8H-IV SIMON Administration Levothyroxine Sodium 75 mcg 04/15/17 07:00 04/22/17 06:30 Synthroid - PO 75 mcg DAILY@0700 SIMON Administration Melatonin 5 mg 04/18/17 16:54 04/19/17 23:05 Melatonin PO 5 mg HS PRN Administration INSOMNIA Metoprolol Tartrate 100 mg 04/18/17 22:00 04/22/17 09:16 Lopressor - PO 100 mg BID SIMON Administration Saliva Substitute 1 applic 04/20/17 17:15 04/22/17 09:17 Mouthkote Solution - MM 1 applic DAILY SIMON Administration Lab Results WBC 10.1 K/mm3 (4.0-10.0) H 04/22/17 05:10 RBC 4.65 M/mm3 (3.60-5.2) 04/22/17 05:10 Hgb 13.0 GM/dL (10.7-15.3) 04/22/17 05:10 Hct 40.7 % (32.4-45.2) 04/22/17 05:10 MCV 87.7 fl (80-96) 04/22/17 05:10 MCHC 31.8 g/dl (32.0-36.0) L 04/22/17 05:10 RDW 17.7 % (11.6-15.6) H 04/22/17 05:10 Plt Count 116 K/MM3 (134-434) L 04/22/17 05:10 Sodium 141 mmol/L (136-145) 04/22/17 05:10 Potassium 3.0 mmol/L (3.5-5.1) L 04/22/17 05:10 Chloride 108 mmol/L (98-107) H 04/22/17 05:10 Carbon Dioxide 24 mmol/L (21-32) 04/22/17 05:10 Anion Gap 9 (8-16) 04/22/17 05:10 BUN 32 mg/dL (7-18) H 04/22/17 05:10 Creatinine 0.9 mg/dL (0.55-1.02) 04/22/17 05:10 Random Glucose 101 mg/dL (74-106) 04/22/17 05:10 Calcium 6.9 mg/dL (8.5-10.1) L* 04/22/17 05:10 Blood Type Cancelled 04/14/17 16:05 Antibody Screen Cancelled 04/14/17 16:05 INR 1.97 (0.82-1.09) H D 04/22/17 05:10 Microbiology 04/20/17 11:05 Urine - Urine - Catheterized Urine Culture - Final NO GROWTH OBTAINED 04/20/17 08:30 Blood - Peripheral Venous Blood Culture - Preliminary Gram Positive Bacillus 04/20/17 09:15 Blood - Peripheral Venous Blood Culture - Preliminary Gram Positive Bacillus 04/18/17 08:00 Blood - Peripheral Venous Blood Culture - Preliminary NO GROWTH OBTAINED AFTER 96 HOURS, INCUBATION TO CONTINUE FOR 1 DAYS. 04/18/17 08:00 Blood - Peripheral Venous Blood Culture - Preliminary NO GROWTH OBTAINED AFTER 96 HOURS, INCUBATION TO CONTINUE FOR 1 DAYS. ASSESSMENT AND PLAN: 86yo F with PMH AFib on xarelto, CAD s/p stents, hypothyroid, Systolic CHF, dyslipidemia sent to the ER by her receiving room clerk for afib with RVR -Severe sepsis/Possible septic shock with GPB bacteremia, prelim suggestive Listeria -AMS, given Listeria bacteremia r/o meningitis/meningioencephalitis -Acute respiratory alkalosis, -Lactic acidosis -Afib with RVR -Acute Systolic Heart failure exacerbation -Coagulopathy, elevated INR, suspect from hepatic congestion/amiodarone -Abnormal LFTs, likely congestive hepatopathy -Hypothyoridism -SELMA, prerenal likely from CKD on her CKD (from poor EF) -Asymptomatic Hypotension, partly from tachycardia, partly from her poor EF and forward flow -Intermittent hallucinations/delusions, Suspect delirium in the setting of mild underlying dementia Plan: zosyn/vancomycin day 3. ID input noted. Ampicillin/Gentamycin. ?source for listeria Neuro consult, address LP and MRI brain. Lactic acidosis resolved with hydration, but patient ansarcic now, continued concerns for volume overload and respiratory distress, close monitoring in ICU and low threshold for bipap/intubation and pressors. INR worsened with xarelto, not a candidate for the same. s/p 3 days of vitamin K. INR noted today. Cardiology input appreciated, address full dose anticoagulation once sepsis concerns improved, per their recs. Patient will likely need to be placed on heparin drip with eventual transition to coumadin when sepsis concerns resolved Amiodarone loading per cardiology, metoprolol with holding parameters, caution given sepsis. earlier with gentle diuresis, now on hold given sepsis/lactic acidosis and need for hydration. Low threshold for pressors. s/p lasix and kayexalate on 04/19 with improved renal/hepatic function s/p 3 days of Vit K. CT brain 04/19 neg for acute concerns. DVTPPX on hold given supratherapeutic INR PT eval noted. 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 Plan discussed with Dr. Maldonado and Dr. Ruelas. total critical care time spent 40 min.
[2017-04-22] MEDS ORDERED: LIDOCAINE HCL 1%, 10 MG/ML (20ML VIAL) ONE (15:57)
--- NOTE | 2017-04-22 17:03 | PN ---
Progress Note (short form) - Note Progress Note: PAtient seen and examined Moaning, confused Last Vital Signs Temp Pulse Resp BP Pulse Ox 101 F H 122 H 24 123/78 96 04/21/17 08:00 04/21/17 10:00 04/21/17 10:00 04/21/17 10:00 04/21/17 11:40 Cor: RSR, No murmurs, No gallops Lungs: decreased bases Abd: Soft, Normal bowel sounds, No organomegaly Ext:No significant edema Abnormal Lab Results 04/20/17 04/20/17 04/21/17 11:05 16:00 06:30 WBC 13.2 H MCHC 30.7 L RDW 18.2 H Plt Count 127 L Neutrophils % 93.0 H Lymphocytes % 2.5 L D PT with INR INR PTT (Actin FS) ABG pO2 at Pt Temp ABG O2 Sat (Measured) BUN Creatinine Random Glucose Lactic Acid 2.2 H* Calcium Total Bilirubin AST Alkaline Phosphatase Total Protein Albumin Urine Ketones Trace H Urine Urobilinogen 2.0 H 04/21/17 04/21/17 04/21/17 06:30 06:30 06:30 WBC MCHC RDW Plt Count Neutrophils % Lymphocytes % PT with INR 39.70 H INR 3.51 H D PTT (Actin FS) 39.0 H D ABG pO2 at Pt Temp ABG O2 Sat (Measured) BUN 44 H Creatinine 1.7 H Random Glucose 107 H Lactic Acid 4.8 H* Calcium 7.9 L Total Bilirubin 4.3 H D AST 67 H Alkaline Phosphatase 119 H Total Protein 5.5 L Albumin 2.4 L Urine Ketones Urine Urobilinogen 04/21/17 10:10 WBC MCHC RDW Plt Count Neutrophils % Lymphocytes % PT with INR INR PTT (Actin FS) ABG pO2 at Pt Temp 368.0 H* D ABG O2 Sat (Measured) 99.8 H* BUN Creatinine Random Glucose Lactic Acid Calcium Total Bilirubin AST Alkaline Phosphatase Total Protein Albumin Urine Ketones Urine Urobilinogen Active Medications Alprazolam (Xanax -) 0.25 mg NGT Q6H PRN PRN Reason: AGITATION Last Admin: 04/21/17 07:56 Dose: 0.25 mg Amiodarone HCl (Cordarone -) 400 mg PO BID SIMON Last Admin: 04/21/17 09:31 Dose: 400 mg Piperacillin Sod/Tazobactam (Sod 3.375 gm/ Dextrose) 100 mls @ 200 mls/hr IVPB Q8H-IV SIMON PRN Reason: Protocol Last Admin: 04/21/17 09:30 Dose: 200 mls/hr Sodium Chloride (Normal Saline -) 1,000 mls @ 1,000 mls/hr IV ASDIR STA Stop: 04/21/17 12:34 Levothyroxine Sodium (Synthroid -) 75 mcg PO DAILY@0700 [facility] Last Admin: 04/21/17 06:47 Dose: 75 mcg Melatonin (Melatonin) 5 mg PO HS PRN PRN Reason: INSOMNIA Last Admin: 04/19/17 23:05 Dose: 5 mg Metoprolol Tartrate (Lopressor -) 100 mg PO BID [facility] Last Admin: 04/21/17 09:31 Dose: 100 mg Saliva Substitute (Mouthkote Solution -) 1 applic MM DAILY [facility] Last Admin: 04/21/17 09:31 Dose: 1 applic A/P 86 yo F w/ h/o CAD w/ stents, afib on xarelto, HFpEF (EF 67.8%, 2016) and HLD who was sent from her digital asset coordinator's office due to office EKG notable for Afib with RVR w/ rate in 160s. sepsis -- G+ bacilli ? listeria On ampicillin/gentamicin coagulopathy due to sepsis monitor CBC/PT/PTT
--- NOTE | 2017-04-22 17:08 | CONSULT ---
Consult - text type - Consultation Consultation Note: NEUROLOGY CONSULTATION AND PROCEDURAL NOTE (LP): Events reviewed and discussed with Drs. Ruelas and Lashonda. Patient examined with son at the bedside who aids with history. He reports mild memory loss in the patient. This 86 yo RH woman lives with her family. PMH sig for HTN, Hypothyroidism, ASHD and AFib on Xarelto, Sinthroid, lisinopril and lasix. Admitted 05/15 with rapid AFib. 2 days ago the patient became confused and had visual hallucinations. +Leukocytosis. Developed fever. Progressive deterioration in LOC. Started on antibiotics. Blood cultures + for Listeria and started on Ampicillin and gentomicin this AM. CT of head (reviewed): Mild-moderate diffuse atrophy without focal lesions. EXAM: Lethargic. Moaning. +Nuchal rigidity. Follows no commands. Full roving EOM's. No response to visual threat. [id number]. No facial. Moves all fours spontaneously and symmetrically. Normal reflexes except absent AJ's. Downgoing toes. Withdraws all fours to pinch. Procedural note (Lumbar Puncture): Following informed consent from the daughter, sterile prep and local anesthesia with 1% Xylocaine, Lumbar puncture was performed at the L3L4 interspace with the patient in the left lateral decubitus position. Opening pressure was 140 mm CSF. 15 cc of Xanthochromic fluid was removed and sent for Protein, glucose, cell counts, differential, cultures, gram stains and PCR. Dr. Ruelas notified of positive result strongly suggesting meningitis. The son is also aware. IMP: Listeria Meningitis. SUGGEST: Continue high dose ampicillin and gentomicin. Continue supportive care. Await confirmatory CSF results. Prognosis guarded. Thank you very much, Ish Livingston MD
[2017-04-22 19:47] LABS: CSF COLOR XANTHOCHROMIC
[2017-04-22 19:55] LABS: CSF APPEARANCE SL.CLOUDY
[2017-04-22 20:29] LABS: CSF WBC 465
[2017-04-22] MEDS ORDERED: QUEtiapine FUMARATE 25 MG TABLET (FP) PO ONE (21:00)
[2017-04-22] MEDS ORDERED: SODIUM CHLORIDE 0.9% 1000 ML INFUS.BAG IV ONE (22:27)
[2017-04-22 22:40] LABS: ANION GAP 10 (8-16); BLOOD UREA NITROGEN 27 mg/dL (7-18); CHLORIDE 112 mmol/L (98-107); CO2 21 mmol/L (21-32); CREATININE 0.8 mg/dL (0.55-1.02); GLUCOSE,RANDOM 70 mg/dL (74-106); SODIUM 143 mmol/L (136-145)
[2017-04-22 22:43] LABS: CALCIUM 6.7 mg/dL (8.5-10.1)
[2017-04-23 00:52] LABS: GLUCOSE,CSF 15 mg/dL (50-80)
[2017-04-23] MEDS ORDERED: PT OWN MED DRAWER 7, Y5N ONE ×4 (00:58→21:16)
[2017-04-23] MEDS: AMPICILLIN - 2 GM in SODIUM CHLORIDE 100 ML IVPB SCH ×6 (01:02→22:55)
[2017-04-23] MEDS: SODIUM CHLORIDE IVPB SCH ×3 (01:02→18:55)
[2017-04-23] MEDS: GENTAMICIN IVPB SCH ×3 (01:02→18:55)
--- NOTE | 2017-04-23 02:01 | PN ---
Progress Note (short form) - Note Progress Note: Pt agitiated O/N -12.5mg Seroquel via NGT given -Pt placed on nocturnal Bi-Level support to off load WOB Pt rested easy throughout the evening. FRANKL, ACNP-BC [facility] ICU PULM/CCM
[2017-04-23] MEDS: LEVOTHYROXINE NA 75 MCG TABLET (FP) PO SCH (06:10)
[2017-04-23 06:16] LABS: BASO % 0.1 % (0-2.0); EOS % 0.4 % (0-4.5); HEMATOCRIT 42.6 % (32.4-45.2); HEMOGLOBIN 13.3 GM/dL (10.7-15.3); LYMPH % 5.4 % (8-40); MCH 27.9 pg (25.7-33.7); MCHC 31.2 g/dl (32.0-36.0); MEAN CELL VOLUME 89.4 fl (80-96); MEAN PLT VOLUME 9.3 fl (7.5-11.1); MONO % 4.2 % (3.8-10.2); NEUT % 89.9 % (42.8-82.8); PLATELET COUNT 126 K/MM3 (134-434); RBC 4.76 M/mm3 (3.60-5.2); RDW 18.1 % (11.6-15.6)
--- NOTE | 2017-04-23 06:46 | PN ---
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 In retrospect she was evolving this illness from admission. NOt seen on original blood cultures but subsequently. Discussed with neurology yesterday regarding abnormal LP. Currently on Ampicillin high dose and gent q 8 H treatment of choice Hypotensive overnight - Current Medication List Current Medications: Active Medications Alprazolam (Xanax -) 0.25 mg NGT Q6H PRN PRN Reason: AGITATION Last Admin: 04/22/17 09:16 Dose: 0.25 mg Amiodarone HCl (Cordarone -) 400 mg PO BID [facility] Last Admin: 04/22/17 21:02 Dose: 400 mg Ampicillin Sodium 2 gm/ Sodium (Chloride) 100 mls @ 200 mls/hr IVPB Q4H-IV [facility] Last Admin: 04/23/17 06:10 Dose: 200 mls/hr Gentamicin Sulfate 30 mg/ (Sodium Chloride) 100.75 mls @ 100.75 mls/hr IVPB Q8H -IV [facility] Last Admin: 04/23/17 01:02 Dose: 100.75 mls/hr Levothyroxine Sodium (Synthroid -) 75 mcg PO DAILY@0700 [facility] Last Admin: 04/23/17 06:10 Dose: 75 mcg Melatonin (Melatonin) 5 mg PO HS PRN PRN Reason: INSOMNIA Last Admin: 04/19/17 23:05 Dose: 5 mg Metoprolol Tartrate (Lopressor -) 100 mg PO BID [facility] Last Admin: 04/22/17 21:02 Dose: 100 mg Saliva Substitute (Mouthkote Solution -) 1 applic MM DAILY [facility] Last Admin: 04/22/17 09:17 Dose: 1 applic - Objective Vital Signs: Vital Signs Temperature 99.4 F 04/23/17 06:00 Pulse Rate 107 H 04/23/17 06:00 Respiratory Rate 24 04/23/17 06:00 Blood Pressure 86/61 04/23/17 06:00 O2 Sat by Pulse Oximetry (%) 95 04/22/17 21:00 Constitutional: Yes: Moderate Distress, Other (Lethargic but arousable (got Seroquel)) Neck: Yes: Other (Neck pain and stiffness) Cardiovascular: Yes: Pulse Irregular, S1, S2 Respiratory: Yes: WNL, Regular, CTA Bilaterally, Rhonchi Gastrointestinal: Yes: WNL, Normal Bowel Sounds, Soft. No: Tenderness, Tenderness, Rebound Extremities: No: Cold, Cool, Cyanosis Edema: No Labs: CBC, BMP 04/23/17 05:15 INR, PTT INR 1.97 (0.82-1.09) H D 04/22/17 05:10 Fibrinogen 303.0 mg/dL (238-498) D 04/22/17 05:10 Problem List - Problems (1) Sepsis Code(s): A41.9 - SEPSIS, UNSPECIFIED ORGANISM (2) Atrial fibrillation with RVR Code(s): I48.91 - UNSPECIFIED ATRIAL FIBRILLATION (3) Bacteremia due to Gram-positive bacteria Code(s): R78.81 - BACTEREMIA (4) Listeria brain infection Code(s): A32.12 - LISTERIAL MENINGOENCEPHALITIS (5) Respiratory failure Code(s): J96.90 - RESPIRATORY FAILURE, UNSP, UNSP W HYPOXIA OR HYPERCAPNIA Assessment/Plan Microbiology 04/22/17 16:45 Cerebral Spinal Fluid - Lumbar Puncture Gram Stain - Preliminary Laboratory Tests 04/22/17 04/22/17 04/22/17 05:10 16:45 21:45 WBC Hgb Plt Count BUN 27 H Creatinine 0.8 Total Bilirubin 2.7 H D AST 37 ALT 46 Alkaline Phosphatase 80 CSF Appearance Sl.cloudy CSF Color Xanthochromic CSF WBC 465 CSF RBC 1020 CSF Neutrophils 70 CSF Lymphocytes 8 CSF Monocytes 20 CSF Eosinophils 1 CSF Glucose 15 L CSF Total Protein 352 H 04/23/17 04/23/17 05:15 05:15 WBC 9.0 Hgb 13.3 Plt Count 126 L BUN Pending Creatinine Pending Total Bilirubin AST ALT Alkaline Phosphatase CSF Appearance CSF Color CSF WBC CSF RBC CSF Neutrophils CSF Lymphocytes CSF Monocytes CSF Eosinophils CSF Glucose CSF Total Protein Assessment Sepsis syndrome Suspected Listeriosis with bacteremia and meningitis ruled in Atrial fibrillation Respiratory failure Coagulopathy Xarelto stopped Plan Getting Ampiciliin and Gent day 1 Rx Given her current medical issues her prognosis is poor ( age cardiac issues and respiratory failure. Critical care time spent 40 minutes today Suraj CHRISTENSEN
[2017-04-23 06:55] LABS: INR 1.22 (0.82-1.09); PROTHROMBIN TIME (PATIENT) 13.8 SEC (9.98-11.88)
[2017-04-23 06:58] LABS: ACTIVATED PTT 27.7 SECONDS (26.9-34.4)
[2017-04-23 07:43] LABS: CALCIUM 7.4 mg/dL (8.5-10.1); CHLORIDE 110 mmol/L (98-107); SODIUM 145 mmol/L (136-145)
[2017-04-23 07:47] LABS: ALBUMIN 1.6 g/dl (3.4-5.0); ALK PHOS 78 U/L (45-117); ANION GAP 10 (8-16); BLOOD UREA NITROGEN 24 mg/dL (7-18); CO2 25 mmol/L (21-32); CREATININE 0.8 mg/dL (0.55-1.02); GLUCOSE,RANDOM 60 mg/dL (74-106); PHOSPHOROUS 1.8 mg/dL (2.5-4.9); SGPT/ALT 36 U/L (12-78); TOT PROT 4.1 g/dl (6.4-8.2)
[2017-04-23 08:12] LABS: POTASSIUM 3.7 mmol/L (3.5-5.1)
[2017-04-23 08:13] LABS: SGOT/AST 35 U/L (15-37)
--- NOTE | 2017-04-23 09:19 | PN ---
Progress Note (short form) - Note Progress Note: PULMONARY/CCM Pt seen and examined in the ICU. Blood cultures growing possible Listeria. s/p LP suggestive of meningitis with opening pressure 140 and 465 WBC, low glucose. CSF Ag + for strep pneumo. Now on BiPAP, lethargic. Last Vital Signs Temp Pulse Resp BP Pulse Ox 99.4 F 107 H 24 86/61 96 04/23/17 06:00 04/23/17 06:00 04/23/17 06:00 04/23/17 06:00 04/23/17 08:32 Intake & Output 04/20/17 04/21/17 04/22/17 04/23/17 23:59 23:59 23:59 23:59 Intake Total 1375 3010 960 Output Total 250 Balance 1125 3010 960 Weight 51.71 kg 53.116 kg 50.394 kg 49.941 kg Gen: tachypneic on BiPAP Heart: tachycardic, regular Lung: scattered rhonchi Abd: soft, nontender Ext: + edema CBC, BMP 04/23/17 05:15 04/23/17 05:15 Active Medications Alprazolam (Xanax -) 0.25 mg NGT Q6H PRN PRN Reason: AGITATION Last Admin: 04/22/17 09:16 Dose: 0.25 mg Amiodarone HCl (Cordarone -) 400 mg PO BID [facility] Last Admin: 04/22/17 21:02 Dose: 400 mg Ampicillin Sodium 2 gm/ Sodium (Chloride) 100 mls @ 200 mls/hr IVPB Q4H-IV [facility] Last Admin: 04/23/17 06:10 Dose: 200 mls/hr Gentamicin Sulfate 30 mg/ (Sodium Chloride) 100.75 mls @ 100.75 mls/hr IVPB Q8H -IV [facility] Last Admin: 04/23/17 01:02 Dose: 100.75 mls/hr Vancomycin HCl 750 mg/ (Dextrose) 250 mls @ 250 mls/hr IVPB DAILY [facility] PRN Reason: Protocol Ceftriaxone Sodium 2 gm/ (Dextrose) 100 mls @ 200 mls/hr IVPB BID [facility] Levothyroxine Sodium (Synthroid -) 75 mcg PO DAILY@0700 [facility] Last Admin: 04/23/17 06:10 Dose: 75 mcg Melatonin (Melatonin) 5 mg PO HS PRN PRN Reason: INSOMNIA Last Admin: 04/19/17 23:05 Dose: 5 mg Metoprolol Tartrate (Lopressor -) 100 mg PO BID [facility] Last Admin: 04/22/17 21:02 Dose: 100 mg Saliva Substitute (Mouthkote Solution -) 1 applic MM DAILY [facility] Last Admin: 04/22/17 09:17 Dose: 1 applic A/P Suspect Meningitis - ?Listeria/Pneumococcal Acute Hypoxic Respiratory Failure Acute Colitis r/o Pneumonia Bacteremia Severe Sepsis Atrial Fibrillation with RVR Acute Kidney Injury improving Lactic Acidosis resolved Elevated LFTs Acute on Chronic Diastolic Heart Failure Coagulopathy Hypothyroidism - continue antibiotics per ID - f/u CSF cultures - will likely need intubation - IVF boluses as needed - pressors if not fluid responsive - monitor urine output, creatinine - monitor LFTs, coags - rate control - anticoagulation, target INR 2-3 - replete lytes - O2 to keep SpO2 >90% - continue ICU monitoring - guarded prognosis critical care time spent in reviewing chart, evaluating patient and formulating plan 35 min
--- NOTE | 2017-04-23 09:30 | PN ---
Progress Note, Physician Chief Complaint: COVERAGE for MASCITELLI Worsened respiratory status TELE: AF in 120s REVIEWED ICU ATTENDING NOTE: will likely need intubation. - Current Medication List Current Medications: Active Medications Alprazolam (Xanax -) 0.25 mg NGT Q6H PRN PRN Reason: AGITATION Last Admin: 04/22/17 09:16 Dose: 0.25 mg Amiodarone HCl (Cordarone -) 400 mg PO BID [facility] Last Admin: 04/22/17 21:02 Dose: 400 mg Ampicillin Sodium 2 gm/ Sodium (Chloride) 100 mls @ 200 mls/hr IVPB Q4H-IV [facility] Last Admin: 04/23/17 06:10 Dose: 200 mls/hr Gentamicin Sulfate 30 mg/ (Sodium Chloride) 100.75 mls @ 100.75 mls/hr IVPB Q8H -IV [facility] Last Admin: 04/23/17 01:02 Dose: 100.75 mls/hr Vancomycin HCl 750 mg/ (Dextrose) 250 mls @ 250 mls/hr IVPB DAILY [facility] PRN Reason: Protocol Ceftriaxone Sodium 2 gm/ (Dextrose) 100 mls @ 200 mls/hr IVPB BID [facility] Levothyroxine Sodium (Synthroid -) 75 mcg PO DAILY@0700 [facility] Last Admin: 04/23/17 06:10 Dose: 75 mcg Melatonin (Melatonin) 5 mg PO HS PRN PRN Reason: INSOMNIA Last Admin: 04/19/17 23:05 Dose: 5 mg Metoprolol Tartrate (Lopressor -) 100 mg PO BID [facility] Last Admin: 04/22/17 21:02 Dose: 100 mg Saliva Substitute (Mouthkote Solution -) 1 applic MM DAILY [facility] Last Admin: 04/22/17 09:17 Dose: 1 applic - Objective Vital Signs: Vital Signs Temperature 99.4 F 04/23/17 06:00 Pulse Rate 107 H 04/23/17 06:00 Respiratory Rate 24 04/23/17 06:00 Blood Pressure 86/61 04/23/17 06:00 O2 Sat by Pulse Oximetry (%) 96 04/23/17 08:32 Constitutional: Yes: Mild Distress Eyes: Yes: Conjunctiva Clear Cardiovascular: Yes: Tachycardia, Pulse Irregular Respiratory: Yes: Other (bilateral rhonchi) Edema: No Neurological: Yes: Confusion Labs: CBC, BMP 04/23/17 05:15 04/23/17 05:15 INR, PTT INR 1.22 (0.82-1.09) H D 04/23/17 05:15 Fibrinogen 252.0 mg/dL (238-498) 04/23/17 05:15 - ....Imaging EKG: Image Reviewed Assessment/Plan oblems (1) Atrial fibrillation with RVR Assessment/Plan: Amiodarone and metoprolol. LFTs are ok. INR markedly elevated (after rivaroxaban; systolic CHF with liver stress, sepsis are other likely contributing factors). Code(s): I48.91 - UNSPECIFIED ATRIAL FIBRILLATION (2) Acute on chronic systolic and diastolic heart failure, NYHA class 2 Assessment/Plan: On amiodarone and metoprolol. Problematic giving other agents (e.g. ACEI, RAAS, hydralazine + isordil) at the present time due to renal insufficiency and relative hypotension. ECHO: significant LV dysfunction. Code(s): I50.43 - ACUTE ON CHRONIC COMBINED SYSTOLIC AND DIASTOLIC HRT FAIL (3) CAD (coronary artery disease) Code(s): I25.10 - ATHSCL HEART DISEASE OF [place] CORONARY ARTERY W/O ANG PCTRS (4) Renal insufficiency Assessment/Plan: Secondary to hypotension and sepsis. Now on fluids due to sepsis, increasing lactate. Code(s): N28.9 - DISORDER OF KIDNEY AND URETER, UNSPECIFIED (5) Fever and gram + bacteremia: Assessment/Plan: Sepsis. Antibiotics per ID; antipyretics. Code(s): R50.9 - FEVER, UNSPECIFIED (7) Acute respiratory failure Code(s): J96.00 - ACUTE RESPIRATORY FAILURE, UNSP W HYPOXIA OR HYPERCAPNIA May require intubation, as per critical care team POOR PROGNOSIS, CRITICALLY ILL, ELDERLY WITH LITTLE RESERVE. ADVANCED DIRECTIVES TO BE RE-ADDRESSED
[2017-04-23] MEDS: AMIODARONE HCL 200 MG TABLET (FP) PO SCH ×2 (10:15→21:27)
[2017-04-23] MEDS: METOPROLOL TARTRATE 50 MG TABLET (FP) PO SCH ×2 (10:15→21:27)
[2017-04-23] MEDS: LYTES/YERBA SANTA 240 ML BOTTLE MM SCH (10:18)
[2017-04-23] MEDS: CEFTRIAXONE IN IS-OSM DEXTROSE 2 GM/50 ML BAG IVPB SCH ×2 (12:03→21:27)
[2017-04-23] MEDS: VANCOMYCIN 750 MG in DEXTROSE 5%-WATER - 250 ML IVPB SCH (13:00)
[2017-04-23] MEDS ORDERED: RAPID SEQUENCE INTUBATION KIT NR ONE (13:00)
[2017-04-23] MEDS ORDERED: NOREPINEPHRINE BITARTRATE 4 MG/4 ML ML IV ONE (13:10)
--- NOTE | 2017-04-23 13:42 | PROC ---
Intubation - Intubation Reason for Intubation: Respiratory Failure Time of Intubation: 13:30 Intubation Method: orotracheal Blade used: Mac (4) Tube Size (cm): 7.5 Tube position @ lip (cm): 21 Tube position confirmed by: Direct visualization, CO2 detector, Chest x-ray, Breath sounds Breath Sounds after Intubation: equal Post Intubation Xray: Yes Remarks: large volume thick secretions obstructing posterior pharynx
--- NOTE | 2017-04-23 13:42 | PN ---
Progress Note (short form) - Note Progress Note: [facility] Pt lethargic, tachypneic with shallow breaths, unable to get reliable pulse oximetry, hypotensive and tachycardic. Discussed condition with daughter Jordyn Moreno and need for stabilizing patient, agreed to intubation and central line placement. Dario Maldonado MD
--- NOTE | 2017-04-23 13:43 | PROC ---
Central Line Insertion Indication: Vasopressor Risks and Benefits Explained: Yes Consent on Chart: Yes Central Line: Triple Lumen Catheter Anesthesia: 1% Lidocaine Sterile Technique: Yes Ultrasound Guided Assistance: Yes Position: Right Internal Jugular Post Insertion: Yes: Chest X-Ray Ordered Sterile Dressing Applied: Yes
[2017-04-23] MEDS ORDERED: ETOMIDATE 20 MG/10 ML AMPUL IVPUSH ONE (13:52)
[2017-04-23] MEDS ORDERED: ETOMIDATE 40 MG/20 ML VIAL IVPUSH ONE (13:52)
[2017-04-23] MEDS ORDERED: fentaNYL CITRATE 250 MCG/5 ML VIAL IVPUSH ONE (13:53)
[2017-04-23] MEDS: NOREPINEPHRINE BITARTRATE 8,000 MCG in DEXTROSE 5%-WATER - 492 ML IV SCH (14:00)
--- NOTE | 2017-04-23 15:52 | PN ---
Teaching Attending Note Name of Resident: Carmita Umaña ATTENDING PHYSICIAN STATEMENT Time of evaluation :2:00 PM SUBJECTIVE: Patient seen and examined. restless, intubated with central line, unable to assess for ROS. OBJECTIVE: Vital Signs Period Temp Pulse Resp BP Sys/Gandara Pulse Ox Last 24 Hr 99.1 F-99.8 F 103-127 14-26 68-101/50-91 95-96 Intake & Output 04/20/17 04/21/17 04/22/17 04/23/17 23:59 23:59 23:59 23:59 Intake Total 1375 3010 960 Output Total 250 300 Balance 1125 3010 960 -300 Weight 114 lb 117 lb 1.6 oz 111 lb 1.6 oz 110 lb 1.6 oz General: in bed, restless, intubated, moves all extremities, but doesn't open eyes, CVS:S1S2 irregular, tachycardic Chest: bilateral rales, limited exam Abdomen: soft, no moaning on exam currently, positive bowel sounds, soft, no voluntary or involuntary guarding or rigidity Extremities: bilateral pedal edema, positive pulses Neuro: Facial symmetry, moves all extremities and withdraws to pain further exam limited, does not open eyes to void Home Medication List Medication Instructions Recorded Confirmed Type Lisinopril [Zestril] 2.5 mg PO DAILY 03/13/16 04/14/17 History Levothyroxine [Synthroid -] 75 mcg PO DAILY@0700 04/14/17 04/14/17 History Metoprolol Tartrate 25 mg PO DAILY 04/18/17 04/18/17 History Omeprazole 40 mg PO DAILY 04/18/17 04/18/17 History Potassium Citrate [Potassium 20 meq PO DAILY 04/18/17 04/18/17 History Citrate ER] Active Medications Generic Name Dose Route Start Last Admin Trade Name Freq PRN Reason Stop Dose Admin Alprazolam 0.25 mg 04/21/17 07:17 04/22/17 09:16 Xanax - NGT 0.25 mg Q6H PRN Administration AGITATION Amiodarone HCl 400 mg 04/20/17 10:00 04/23/17 10:15 Cordarone - PO 400 mg BID SIMON Administration Ampicillin Sodium 2 gm/ Sodium 100 mls @ 200 mls/hr 04/22/17 12:00 04/23/17 14:00 Chloride IVPB 200 mls/hr Q4H-IV SIMON Administration Gentamicin Sulfate 30 mg/ 100.75 mls @ 100.75 mls/hr 04/22/17 12:00 04/23/17 10:09 Sodium Chloride IVPB 100.75 mls/hr Q8H-IV SIMON Administration Vancomycin HCl 750 mg/ 250 mls @ 250 mls/hr 04/23/17 10:00 04/23/17 13:00 Dextrose IVPB 250 mls/hr DAILY SIMON Administration Protocol CEFTRIAXONE IN IS-OSM DEXTROSE 2 gm in 50 mls @ 100 mls/hr 04/23/17 10:00 07/05 12:03 Ceftriaxone 2 Gm-D5w Bag IVPB 100 mls/hr BID SIMON Administration Norepinephrine Bitartrate 8, 500 mls @ 5.61 mls/hr 04/23/17 14:00 000 mcg/ Dextrose IV ASDIR SIMON Protocol 0.03 MCG/KG/MIN Levothyroxine Sodium 75 mcg 04/15/17 07:00 04/23/17 06:10 Synthroid - PO 75 mcg DAILY@0700 SIMON Administration Melatonin 5 mg 04/18/17 16:54 04/19/17 23:05 Melatonin PO 5 mg HS PRN Administration INSOMNIA Metoprolol Tartrate 100 mg 04/18/17 22:00 04/23/17 10:15 Lopressor - PO 100 mg BID SIMON Administration Saliva Substitute 1 applic 04/20/17 17:15 04/23/17 10:18 Mouthkote Solution - MM 1 applic DAILY SIMON Administration Laboratory Results - last 24 hr 04/22/17 04/22/17 04/22/17 16:45 16:45 16:45 WBC RBC Hgb Hct MCV MCH MCHC RDW Plt Count MPV Neutrophils % Lymphocytes % Monocytes % Eosinophils % Basophils % PT with INR INR PTT (Actin FS) Fibrinogen Anticoagulation Therapy Puncture Site Patient Temperature ABG pH ABG pCO2 at Pt Temp ABG pO2 at Pt Temp ABG HCO3 ABG O2 Sat (Measured) ABG O2 Content ABG Base Excess José Miguel Test O2 Delivery Device Oxygen Flow Rate Vent Mode Vent Rate Mechanical Rate PEEP Pressure Support Vent Sodium Potassium Chloride Carbon Dioxide Anion Gap BUN Creatinine Creat Clearance w eGFR Random Glucose Calcium Phosphorus Magnesium Total Bilirubin AST ALT Alkaline Phosphatase Ammonia Total Protein Albumin CSF Appearance Sl.cloudy CSF Color Xanthochromic CSF WBC 465 CSF RBC 1020 CSF Neutrophils 70 CSF Lymphocytes 8 CSF Monocytes 20 CSF Eosinophils 1 CSF Basophils No Result Required. CSF Macrophages 1 CSF Plasma Cells No Result Required. CSF Diff Comment CSF Comment No Result Required. CSF Glucose 18 L 15 L CSF Total Protein 352 H 344 H 04/22/17 04/22/17 04/23/17 18:50 21:45 05:15 WBC 9.0 RBC 4.76 Hgb 13.3 Hct 42.6 MCV 89.4 MCH 27.9 MCHC 31.2 L RDW 18.1 H Plt Count 126 L MPV 9.3 Neutrophils % 89.9 H Lymphocytes % 5.4 L D Monocytes % 4.2 Eosinophils % 0.4 Basophils % 0.1 PT with INR INR PTT (Actin FS) Fibrinogen Anticoagulation Therapy Puncture Site Patient Temperature ABG pH ABG pCO2 at Pt Temp ABG pO2 at Pt Temp ABG HCO3 ABG O2 Sat (Measured) ABG O2 Content ABG Base Excess José Miguel Test O2 Delivery Device Oxygen Flow Rate Vent Mode Vent Rate Mechanical Rate PEEP Pressure Support Vent Sodium 143 Potassium 4.0 Chloride 112 H Carbon Dioxide 21 Anion Gap 10 BUN 27 H Creatinine 0.8 Creat Clearance w eGFR Random Glucose 70 L Calcium 6.7 L* Phosphorus Magnesium Total Bilirubin AST ALT Alkaline Phosphatase Ammonia 34 H Total Protein Albumin CSF Appearance CSF Color CSF WBC CSF RBC CSF Neutrophils CSF Lymphocytes CSF Monocytes CSF Eosinophils CSF Basophils CSF Macrophages CSF Plasma Cells CSF Diff Comment CSF Comment CSF Glucose CSF Total Protein 04/23/17 04/23/17 04/23/17 05:15 05:15 15:40 WBC RBC Hgb Hct MCV MCH MCHC RDW Plt Count MPV Neutrophils % Lymphocytes % Monocytes % Eosinophils % Basophils % PT with INR 13.80 H INR 1.22 H D PTT (Actin FS) 27.7 Fibrinogen 252.0 Anticoagulation Therapy Cancelled Puncture Site Cancelled Patient Temperature Cancelled ABG pH Cancelled ABG pCO2 at Pt Temp Cancelled ABG pO2 at Pt Temp Cancelled ABG HCO3 Cancelled ABG O2 Sat (Measured) Cancelled ABG O2 Content Cancelled ABG Base Excess Cancelled José Imguel Test Cancelled O2 Delivery Device Cancelled Oxygen Flow Rate Cancelled Vent Mode Cancelled Vent Rate Cancelled Mechanical Rate Cancelled PEEP Cancelled Pressure Support Vent Cancelled Sodium 145 Potassium 3.7 Chloride 110 H Carbon Dioxide 25 Anion Gap 10 BUN 24 H Creatinine 0.8 Creat Clearance w eGFR > 60 Random Glucose 60 L Calcium 7.4 L Phosphorus 1.8 L Magnesium 2.0 Total Bilirubin 2.0 H D AST 35 ALT 36 Alkaline Phosphatase 78 Ammonia Total Protein 4.1 L Albumin 1.6 L CSF Appearance CSF Color CSF WBC CSF RBC CSF Neutrophils CSF Lymphocytes CSF Monocytes CSF Eosinophils CSF Basophils CSF Macrophages CSF Plasma Cells CSF Diff Comment CSF Comment CSF Glucose CSF Total Protein Microbiology 04/23/17 10:05 Urine For Antigen Detection Legionella Antigen - Final 04/23/17 10:05 Urine For Antigen Detection Streptococcus pneumoniae Antigen (M - Final 04/22/17 11:34 Blood - Peripheral Venous Blood Culture - Preliminary NO GROWTH OBTAINED AFTER 24 HOURS, INCUBATION TO CONTINUE FOR 4 DAYS. 04/22/17 11:29 Blood - Peripheral Venous Blood Culture - Preliminary NO GROWTH OBTAINED AFTER 24 HOURS, INCUBATION TO CONTINUE FOR 4 DAYS. 04/22/17 16:45 Cerebral Spinal Fluid - Lumbar Puncture Gram Stain - Final 04/22/17 16:45 Cerebral Spinal Fluid - Lumbar Puncture Streptococcus pneumoniae Antigen (M - Final 04/18/17 08:00 Blood - Peripheral Venous Blood Culture - Final NO GROWTH AFTER 5 DAYS INCUBATION 04/18/17 08:00 Blood - Peripheral Venous Blood Culture - Final NO GROWTH AFTER 5 DAYS INCUBATION 04/20/17 11:05 Urine - Urine - Catheterized Urine Culture - Final NO GROWTH OBTAINED 04/20/17 08:30 Blood - Peripheral Venous Blood Culture - Preliminary Gram Positive Bacillus 04/20/17 09:15 Blood - Peripheral Venous Blood Culture - Preliminary Gram Positive Bacillus 04/20/17 07:55 Nasopharyngeal Swab Influenza Types A,B Antigen (SÁNCHEZ) - Final 04/20/17 07:55 Nasopharyngeal Swab - Final 04/15/17 04:30 Nasopharyngeal Swab Influenza Types A,B Antigen (SÁNCHEZ) - Final 04/15/17 04:30 Nasopharyngeal Swab - Final ASSESSMENT AND PLAN: 86yo F with PMH AFib on xarelto, CAD s/p stents, hypothyroid, Systolic CHF, dyslipidemia sent to the ER by her public health nurse for afib with RVR -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 -Acute hypoxic respiratory failure from septic shock and likely systolic HF exacerbation from volume resuscitation -Lactic acidosis -Afib with RVR -Acute Systolic Heart failure exacerbation -Coagulopathy, elevated INR, suspect from hepatic congestion/amiodarone -Abnormal LFTs, likely congestive hepatopathy -Hypothyoridism -SELMA, 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 Ampicillin/ceftriaxone/gentamicin. Patient with CSF Pneumococcal Ag positive but recent vaccination and blood cultures with listeria. Follow up cultures for now. Neuro input appreciated. Lactic acidosis resolved with hydration, but patient ansarcic now, continued concerns for volume overload and respiratory distress, close monitoring in ICU and Started on pressors as less room for any more fluids and hypotensive. INR trended down for now, anticoagulation on hold given septic shock and respiratory failure, resume per cardiology. Amiodarone per cardiology, metoprolol with holding parameters, however hypotensive now limiting dosing, currently on presors. earlier with gentle diuresis, now on hold given sepsis/lactic acidosis and need for hydration. Low threshold for pressors. s/p lasix and kayexalate on 04/19 with improved renal/hepatic function s/p 3 days of Vit K. CT brain 04/19 neg for acute concerns. DVTPPX start heparin in 24 hours pending INR. PT eval noted earlier, now with clinical worsening. 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 Will need to address goals of care based on the clinical progression. Replete phos. total critical care time spent 40 min.
[2017-04-23] MEDS ORDERED: SODIUM PHOSPHATE - 30 MM in DEXTROSE 5%-WATER - 250 ML IVPB ONE (16:29)
[2017-04-23 16:51] LABS: ARTERIAL BLOOD GAS BASE EXCESS 1.7 meq/l (-2-2); ARTERIAL BLOOD GAS PCO2 23.5 mmHg (35-45); ARTERIAL BLOOD GAS pH 7.58 (7.35-7.45)
--- NOTE | 2017-04-23 18:18 | PN ---
Progress Note (short form) - Note Progress Note: NEUROLOGY FOLLOW-UP: Events reviewed. Dr. Ruelas's note read and appreciated. CSF FBI=896 (70% polys). Glucose=18 mg% Protein= 352 mg % PCR also suggest S. pneumonia and antibiotics expanded accordingly to include ceftriaxone and vanco (plus amp and gent). Pt. medicated and intubated at 2 PM May still be sedated. Opens eyes, grimaces and semipurposeful mov'ts of both arms to sternal pressure. + spontaneous respirations. Pupils reactive. Corneals +/+ Full EOM's to Doll's head Withdraws all 4's to pinch. IMP: Severe B/L cerebral dysfunction due to Bacterial Meningitis. SUGGEST: Continue aggressive antibiotic Rx and supportive care. Thank you very much, Ish Livingston MD
[2017-04-23] MEDS ORDERED: ACETAMINOPHEN 1000 MG/100 ML VIAL (NON FORMULARY) IVPB STA (21:34)
[2017-04-24] MEDS: AMPICILLIN - 2 GM in SODIUM CHLORIDE 100 ML IVPB SCH ×6 (01:08→21:10)
[2017-04-24] MEDS: GENTAMICIN IVPB SCH ×3 (01:08→18:04)
[2017-04-24] MEDS: SODIUM CHLORIDE IVPB SCH ×3 (01:08→18:04)
[2017-04-24] MEDS ORDERED: NOREPINEPHRINE BITARTRATE 4 MG/4 ML ML IV ONE ×4 (05:10→22:20)
[2017-04-24] MEDS: ALPRAZolam 0.25 MG TABLET NGT PRN (05:50)
[2017-04-24] MEDS: LEVOTHYROXINE NA 75 MCG TABLET (FP) PO SCH (06:07)
[2017-04-24] MEDS: NOREPINEPHRINE BITARTRATE 8,000 MCG in DEXTROSE 5%-WATER - 492 ML IV SCH ×2 (06:08→17:59)
--- NOTE | 2017-04-24 06:12 | PN ---
Physical Exam: SUBJECTIVE: Patient seen and examined by me this AM - Intubated yesterday. Central line placed by ICU team. CSF profile consistent with bacterial meningitis. Bacterial PCR consistent with Strep Pneumo, however inconsistent with blood culture + for listeria. Abx coverage expanded to Vanc + rocephin per ID recs given CSF results. Will require additional GOC/advanced directive discussion with family given poor prognosis. - Pt hypotensive yesterday, started on Levo gtt. Febrile overnight. OBJECTIVE: Vital Signs Intake & Output 04/21/17 04/22/17 04/23/17 04/24/17 23:59 23:59 23:59 23:59 Intake Total 3010 960 1789 Output Total 1100 Balance 3010 960 689 Weight 53.116 kg 50.394 kg 49.941 kg Period Temp Pulse Resp BP Sys/Gandara Pulse Ox Last 24 Hr 99.1 F-102.6 F 90-131 12-37 70-101/50-91 95-98 GENERAL: Elderly woman lying in bed. Sedated, intubated HEAD: NG tube in place. Normal with no signs of trauma. EYES: Pupils equal, round and reactive to light, extraocular movements intact, sclera anicteric, conjunctiva clear. No lid lag. EARS, NOSE, THROAT: Ears normal, nares patent, oropharynx clear without exudates. Moist mucous membranes. NECK: Normal range of motion, supple without lymphadenopathy, or masses. LUNGS: Decreased bibasilar breath sounds, BL coarse rales at lung bases. No accessory muscle use. HEART: Irregularly Irregular, normal S1 and S2 without murmur, rub or gallop. ABDOMEN: Soft, nontender, not distended, normoactive bowel sounds, no guarding, no rebound, no masses. No hepatomegaly or splenomegaly. MUSCULOSKELETAL: Normal range of motion at all joints. No bony deformities or tenderness. No CVA tenderness. UPPER EXTREMITIES: 2+ pulses, cool to touch. No cyanosis. No clubbing. No peripheral edema. LOWER EXTREMITIES: 1+ pitting edema BL to knees, improved. 2+ pulses, cool to touch. No calf tenderness. BL superficial varicose veins on anterior shins. NEUROLOGICAL: Cranial nerves II-XII intact. Speech fluid, but tangential. Gait not observed. + kernig sign PSYCHIATRIC: Less agitated today. Poor eye contact. Appropriate mood and affect. SKIN: Warm, dry, normal turgor, no rashes or lesions noted, normal capillary refill. Laboratory Results - last 24 hr CBC, BMP 04/24/17 05:15 04/24/17 05:15 04/23/1718 04/23/17 05:15 05:15 05:15 WBC 9.0 RBC 4.76 Hgb 13.3 Hct 42.6 MCV 89.4 MCH 27.9 MCHC 31.2 L RDW 18.1 H Plt Count 126 L MPV 9.3 Neutrophils % 89.9 H Lymphocytes % 5.4 L D Monocytes % 4.2 Eosinophils % 0.4 Basophils % 0.1 PT with INR 13.80 H INR 1.22 H D PTT (Actin FS) 27.7 Fibrinogen 252.0 Anticoagulation Therapy Puncture Site Patient Temperature ABG pH ABG pCO2 at Pt Temp ABG pO2 at Pt Temp ABG HCO3 ABG O2 Sat (Measured) ABG O2 Content ABG Base Excess José Miguel Test O2 Delivery Device Oxygen Flow Rate Vent Mode Vent Rate Mechanical Rate PEEP Pressure Support Vent Sodium 145 Potassium 3.7 Chloride 110 H Carbon Dioxide 25 Anion Gap 10 BUN 24 H Creatinine 0.8 Creat Clearance w eGFR > 60 Random Glucose 60 L Calcium 7.4 L Phosphorus 1.8 L Magnesium 2.0 Total Bilirubin 2.0 H D AST 35 ALT 36 Alkaline Phosphatase 78 Total Protein 4.1 L Albumin 1.6 L 04/23/17 04/23/17 15:40 16:40 WBC RBC Hgb Hct MCV MCH MCHC RDW Plt Count MPV Neutrophils % Lymphocytes % Monocytes % Eosinophils % Basophils % PT with INR INR PTT (Actin FS) Fibrinogen Anticoagulation Therapy Cancelled Puncture Site Cancelled Right brachial Patient Temperature Cancelled ABG pH Cancelled 7.58 H D ABG pCO2 at Pt Temp Cancelled 23.5 L D ABG pO2 at Pt Temp Cancelled 421.0 H* ABG HCO3 Cancelled 22.0 ABG O2 Sat (Measured) Cancelled 100.0 H* ABG O2 Content Cancelled 19.7 ABG Base Excess Cancelled 1.7 José Miguel Test Cancelled O2 Delivery Device Cancelled Vent ac Oxygen Flow Rate Cancelled 100% Vent Mode Cancelled Ac Vent Rate Cancelled 16 Mechanical Rate Cancelled Yes PEEP Cancelled 5.0 Pressure Support Vent Cancelled 400 Sodium Potassium Chloride Carbon Dioxide Anion Gap BUN Creatinine Creat Clearance w eGFR Random Glucose Calcium Phosphorus Magnesium Total Bilirubin AST ALT Alkaline Phosphatase Total Protein Albumin Active Medications Generic Name Dose Route Start Last Admin Trade Name Freq PRN Reason Stop Dose Admin Alprazolam 0.25 mg 04/21/17 07:17 04/24/17 05:50 Xanax - NGT 0.25 mg Q6H PRN Administration AGITATION Amiodarone HCl 400 mg 04/20/17 10:00 04/23/17 21:27 Cordarone - PO 400 mg BID SIMON Administration Ampicillin Sodium 2 gm/ Sodium 100 mls @ 200 mls/hr 04/22/17 12:00 04/24/17 05:49 Chloride IVPB 200 mls/hr Q4H-IV SIMON Administration Gentamicin Sulfate 30 mg/ 100.75 mls @ 100.75 mls/hr 04/22/17 12:00 04/24/17 01:08 Sodium Chloride IVPB 100.75 mls/hr Q8H-IV SIMON Administration Vancomycin HCl 750 mg/ 250 mls @ 250 mls/hr 04/23/17 10:00 04/23/17 13:00 Dextrose IVPB 250 mls/hr DAILY SIMON Administration Protocol CEFTRIAXONE IN IS-OSM DEXTROSE 2 gm in 50 mls @ 100 mls/hr 04/23/17 10:00 07/05 21:27 Ceftriaxone 2 Gm-D5w Bag IVPB 100 mls/hr BID SIMON Administration Norepinephrine Bitartrate 8, 500 mls @ 5.61 mls/hr 04/23/17 14:00 04/23/17 14 :00 000 mcg/ Dextrose IV 0.1 mcg/kg/min ASDIR SIMON 18.8 mls/hr Protocol Administration 0.03 MCG/KG/MIN Levothyroxine Sodium 75 mcg 04/15/17 07:00 04/23/17 06:10 Synthroid - PO 75 mcg DAILY@0700 SIMON Administration Melatonin 5 mg 04/18/17 16:54 04/19/17 23:05 Melatonin PO 5 mg HS PRN Administration INSOMNIA Metoprolol Tartrate 100 mg 04/18/17 22:00 04/23/17 21:27 Lopressor - PO Not Given BID SIMON Saliva Substitute 1 applic 04/20/17 17:15 04/23/17 10:18 Mouthkote Solution - MM 1 applic DAILY SIMON Administration Microbiology 04/23/17 10:05 Urine For Antigen Detection Legionella Antigen - Final 04/23/17 10:05 Urine For Antigen Detection Streptococcus pneumoniae Antigen (M - Final 04/22/17 11:34 Blood - Peripheral Venous Blood Culture - Preliminary NO GROWTH OBTAINED AFTER 24 HOURS, INCUBATION TO CONTINUE FOR 4 DAYS. 04/22/17 11:29 Blood - Peripheral Venous Blood Culture - Preliminary NO GROWTH OBTAINED AFTER 24 HOURS, INCUBATION TO CONTINUE FOR 4 DAYS. 04/22/17 16:45 Cerebral Spinal Fluid - Lumbar Puncture Gram Stain - Final 04/22/17 16:45 Cerebral Spinal Fluid - Lumbar Puncture Streptococcus pneumoniae Antigen (M - Final 04/18/17 08:00 Blood - Peripheral Venous Blood Culture - Final NO GROWTH AFTER 5 DAYS INCUBATION 04/18/17 08:00 Blood - Peripheral Venous Blood Culture - Final NO GROWTH AFTER 5 DAYS INCUBATION 04/20/17 11:05 Urine - Urine - Catheterized Urine Culture - Final NO GROWTH OBTAINED 04/20/17 08:30 Blood - Peripheral Venous Blood Culture - Preliminary Gram Positive Bacillus 04/20/17 09:15 Blood - Peripheral Venous Blood Culture - Preliminary Gram Positive Bacillus 04/20/17 07:55 Nasopharyngeal Swab Influenza Types A,B Antigen (SÁNCHEZ) - Final 04/20/17 07:55 Nasopharyngeal Swab - Final 04/15/17 04:30 Nasopharyngeal Swab Influenza Types A,B Antigen (SÁNCHEZ) - Final 04/15/17 04:30 Nasopharyngeal Swab - Final Prior echo in 2016 -> pulm htn, severe TR, EF ~67%, dilated atria Echo 02/10 - LVEF reduced in setting of afib with RVR, moderate MR, moderate TR , RV pressure 40-50, LAE Persantine stress test 02/14 - relatively unremarkable with minimal ischemic changes. EKG 04/14 - Afib w/ RVR, no ST changes, TWI in lateral leads, Rate 164 CXR 04/14 - Cardiomegaly, mild congestion, BL pleural effusions ABdominal U/S 04/16 - R pleural effusion; fatty infiltrates of liver; atrophic kidneys with no evidence of hydronephrosis EKG 04/17 - Afib w/ RVR. rate 110, NAD, QTC 446 CXR 04/18 - no change CT head 04/19 - no acute bleed or mass effect; mild atropy EKG 04/19 - Afib/flutter, rate of 106, NAD, QTC 470, no TW changes CXR 2/ - Right pleural effusion with compressive atelectasis. Elevated left diaphragm. Questionable left pleural effusion. No pneumothorax is seen CXR 2 - Since the prior study of 04/20/2017, the feeding tube is been inserted and the tip is in the left upper quadrant/stomach. The patient is rotated to the right. There is a large heart, unfolded aorta and some bibasilar changes. Correlation recommended. CXR 2/3 - Since prior study of 04/21/2017, the feeding tube remains in place. There appears to be a progressive left infiltrate with fluid and/or atelectasis. There is a large heart with sclerotic knob. Correlation recommended. Ab/pelvis CT 04/21 - Impression: 1. Circumferentially prominent wall in the ascending colon and hepatic flexure may be attributed to underdistention or an infectious versus inflammatory colitis. Please correlate clinically. 2. Gastric tube in proper position. No bowel obstruction. No evidence of diverticulitis. 3. Cholelithiasis and/or sludge within the gallbladder. Moderate distention of the gallbladder may be physiologic and/or secondary to dyskinesia. Gallbladder wall thickening is nonspecific and may be secondary to right heart failure, cholecystitis and/or adjacent right upper quadrant inflammatory processes. Please correlate clinically and with right upper quadrant sonogram. 4. Extensive anasarca/body wall edema. Diffuse mesenteric haziness, confluent presacral fluid and free fluid within the pelvis may be secondary to heart failure. Please correlate clinically. 5. An approximately 3.6 x 2.7 cm indeterminant left adrenal gland mass is nonspecific with a broad differential including benign and malignant lesions. 6. Multichamber cardiomegaly with predominant enlargement of the right atrium. Please correlate with echocardiogram. 7. Incompletely imaged layering pleural effusions with airspace opacities in both lung bases. Please correlate with dedicated imaging of the chest. 8. T12 and L4 compression deformities as described above are of indeterminant chronicity. CXR 2/5 - Impression: NG tube above the diaphragm and needs to be advanced. Other tubes and lines in place. Left perihilar infiltration and left retrocardiac opacity. CXR 2/5 PM - Impression: NG tube above the diaphragm and needs to be advanced. Other tubes and lines in place. Left perihilar infiltration and left retrocardiac opacity. ASSESSMENT/PLAN: 86 yo F w/ h/o CAD w/ stents, afib on xarelto, HFpEF (EF 67.8%, 2016) and HLD who was sent from her career consultant's office to ED due to office EKG notable for Afib with RVR w/ rate in 160s. Pt critically ill with MOD, severe menigitis and poor reserve. Currently sedated, intubated. Prognosis very poor given multiple underlying comorbities. 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) - WBC normalized today 7.5 - Blood cultures 4/4 + listeria - Neurology consulted; confirm CSF profile consistent with bacterial meningitis ; rec aggressive IV abx and supportive measures - CSF profile with neutrophilia, low glucose (15), and elevated protein (352). Xanthochromic, PCR presumptively positive for Strep pneumo antigen. Pt recently offered Prevnar vaccine as inpt, however documented that pt refused. 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; Gram stain negative for organisms - F/u remaining CSF panel -> cell count, culture, AFB, toxo igg, pending bacterial PCRs - Day 3 high dose Amp/gent for suspected listeria meningitis; Vanc/cetriaxone added yesterday for strep pneumo coverage, however d/c'ed as clinically inconsistent with presentation per ID recs - ID consult, recs appreciated - Strep pneumo, legionella urine ag negative - trend WBC, fever - UA negative - Intubated, sedation on propofol; Last ABG 7.45/33/142/22 - flu negative - On levo gtt; hypotensive overnight with lows in 80s systolic; increasing pressor support demands - LA resolved with hydration; s/p lasix/kayexylate on 04/19 with improvement in hepatic/renal function #Afib with RVR, HR in up to 160s today - INR 1.09 today -c/w Amiodarone 400mg PO TID and Metoprolol 100mg PO BID -AC held in setting of elevated INR, sepsis; per cardiology hold off on AC for now - Plan for coumadin/heparin bridging vs. xarelto per cardiology for AC after sepsis resolves - Consider restarting heparin in 24hr pending INR #Transaminitis - LFTs improved, T-bili 2-> 1.2 today - Alk phos uptrending, possibly secondary to biliary stasis from rocephin - Trend LFTs #acute on chronic systolic CHF - CT abdomen with diffuse anasarca 2/2; LE edema improved this AM - daily weights, I&O's - Metoprolol 100mg BID - No lasix today; will d/c fluids; #Hypokalemia - 2.9 this AM - Repleted again PO and IV this AM; f/u BMP - trend K; replete as needed - Daily BMPs #SELMA- resolved, cr -> 0.8 today - Trend Cr - Daily BMPs #HTN -currently hypotensive -hold BP meds #supratherapeutic INR, Abd U/S wnl - INR normalized -Hold AC in setting of sepsis, elevated INR; INR 1.09 today; - No change in management per cardiology recommendations #hypothyroidism - c/w Synthroid 75 mcg qd #DVT PPX Xarelto when sepsis resolves #FEN: Gentle hydration as volume status tenuous Daily BMP NG feeds when stable Full code Dispo to ICU for further management. Prognosis poor. Will need a GOC discussion with family. Plan d/w attending, Dr. Leeroy Steele, PGY1 Visit type - Emergency Visit Emergency Visit: Yes ED Registration Date: 04/14/17 Care time: The patient presented to the Emergency Department on the above date and was hospitalized for further evaluation of their emergent condition. - New Patient This patient is new to me today: No - Critical Care Critical Care patient: Yes Total Critical Care Time (in minutes): 35 Critical Care Statement: The care of this patient involved high complexity decision making to prevent further life threatening deterioration of the patient 's condition and/or to evaluate & treat vital organ system(s) failure or risk of failure.
[2017-04-24 06:19] LABS: BASO % 0.1 % (0-2.0); EOS % 0.7 % (0-4.5); HEMOGLOBIN 12.8 GM/dL (10.7-15.3); LYMPH % 4.9 % (8-40); MCH 27.9 pg (25.7-33.7); MEAN CELL VOLUME 87.2 fl (80-96); MEAN PLT VOLUME 8.7 fl (7.5-11.1); MONO % 3.2 % (3.8-10.2); NEUT % 91.1 % (42.8-82.8); PLATELET COUNT 133 K/MM3 (134-434); RBC 4.58 M/mm3 (3.60-5.2); RDW 18.1 % (11.6-15.6); WHITE BLOOD COUNT 7.5 K/mm3 (4.0-10.0)
[2017-04-24] MEDS ORDERED: PT OWN MED DRAWER 7, Y5N ONE ×6 (06:40→17:52)
[2017-04-24 06:52] LABS: INR 1.09 (0.82-1.09); PROTHROMBIN TIME (PATIENT) 12.3 SEC (9.98-11.88)
[2017-04-24 07:08] LABS: ARTERIAL BLOOD GAS BASE EXCESS 0.6 meq/l (-2-2); ARTERIAL BLOOD GAS PCO2 25.1 mmHg (35-45); ARTERIAL BLOOD GAS pH 7.54 (7.35-7.45)
--- NOTE | 2017-04-24 07:12 | PN ---
Progress Note, Physician Chief Complaint: ID Complete deterioration of clinical status with intubation and pressor support Antibiotics modified based on confusing CSF results of positive pneumococcal antigen Ampicillin plus low dose Gentamicin ( Listeria coverage) Vanco and Ceftriaxone added pending final cultures Febrile 102+ Tachpneic tachcardic in distress severe - Current Medication List Current Medications: Active Medications Alprazolam (Xanax -) 0.25 mg NGT Q6H PRN PRN Reason: AGITATION Last Admin: 04/24/17 05:50 Dose: 0.25 mg Amiodarone HCl (Cordarone -) 400 mg PO BID [facility] Last Admin: 04/23/17 21:27 Dose: 400 mg Ampicillin Sodium 2 gm/ Sodium (Chloride) 100 mls @ 200 mls/hr IVPB Q4H-IV [facility] Last Admin: 04/24/17 05:49 Dose: 200 mls/hr Gentamicin Sulfate 30 mg/ (Sodium Chloride) 100.75 mls @ 100.75 mls/hr IVPB Q8H -IV [facility] Last Admin: 04/24/17 01:08 Dose: 100.75 mls/hr Vancomycin HCl 750 mg/ (Dextrose) 250 mls @ 250 mls/hr IVPB DAILY SIMON PRN Reason: Protocol Last Admin: 04/23/17 13:00 Dose: 250 mls/hr CEFTRIAXONE IN IS-OSM DEXTROSE (Ceftriaxone 2 Gm-D5w Bag) 2 gm in 50 mls @ 100 mls/hr IVPB BID [facility] Last Admin: 04/23/17 21:27 Dose: 100 mls/hr Norepinephrine Bitartrate 8, (000 mcg/ Dextrose) 500 mls @ 5.61 mls/hr IV ASDIR SIMON; 0.03 MCG/KG/MIN PRN Reason: Protocol Last Admin: 04/24/17 06:08 Dose: 0.1 mcg/kg/min, 18.72 mls/hr Levothyroxine Sodium (Synthroid -) 75 mcg PO DAILY@0700 [facility] Last Admin: 04/24/17 06:07 Dose: 75 mcg Melatonin (Melatonin) 5 mg PO HS PRN PRN Reason: INSOMNIA Last Admin: 04/19/17 23:05 Dose: 5 mg Metoprolol Tartrate (Lopressor -) 100 mg PO BID [facility] Last Admin: 04/23/17 21:27 Dose: Not Given Saliva Substitute (Mouthkote Solution -) 1 applic MM DAILY [facility] Last Admin: 04/23/17 10:18 Dose: 1 applic - Objective Vital Signs: Vital Signs Temperature 99 F 04/24/17 06:00 Pulse Rate 110 H 04/24/17 06:08 Respiratory Rate 36 H 04/24/17 07:00 Blood Pressure 85/61 04/24/17 06:08 O2 Sat by Pulse Oximetry (%) 95 04/23/17 22:23 Constitutional: Yes: Severe Distress Neck: Yes: Other (Painful flexion) Cardiovascular: Yes: Tachycardia. No: Murmur Respiratory: Yes: WNL, Regular, CTA Bilaterally. No: Rhonchi Gastrointestinal: Yes: WNL, Normal Bowel Sounds, Soft. No: Tenderness Extremities: Yes: Cold Edema: Yes Labs: INR, PTT INR 1.22 (0.82-1.09) H D 04/23/17 05:15 Fibrinogen 252.0 mg/dL (238-498) 04/23/17 05:15 Problem List - Problems (1) Sepsis Code(s): A41.9 - SEPSIS, UNSPECIFIED ORGANISM (2) Atrial fibrillation with RVR Code(s): I48.91 - UNSPECIFIED ATRIAL FIBRILLATION (3) Bacteremia due to Gram-positive bacteria Code(s): R78.81 - BACTEREMIA (4) Listeria brain infection Code(s): A32.12 - LISTERIAL MENINGOENCEPHALITIS (5) Respiratory failure Code(s): J96.90 - RESPIRATORY FAILURE, UNSP, UNSP W HYPOXIA OR HYPERCAPNIA Assessment/Plan Microbiology 04/23/17 10:05 Urine For Antigen Detection Legionella Antigen - Final 04/23/17 10:05 Urine For Antigen Detection Streptococcus pneumoniae Antigen (M - Final 04/22/17 11:34 Blood - Peripheral Venous Blood Culture - Preliminary NO GROWTH OBTAINED AFTER 24 HOURS, INCUBATION TO CONTINUE FOR 4 DAYS. 04/22/17 11:29 Blood - Peripheral Venous Blood Culture - Preliminary NO GROWTH OBTAINED AFTER 24 HOURS, INCUBATION TO CONTINUE FOR 4 DAYS. 04/20/17 09:15 Blood - Peripheral Venous Blood Culture - Preliminary Gram Positive Bacillus 04/20/17 08:30 Blood - Peripheral Venous Blood Culture - Preliminary Gram Positive Bacillus Laboratory Tests 04/22/17 04/22/17 04/23/17 16:45 16:45 05:15 WBC Hgb Hct Plt Count BUN 24 H Creatinine 0.8 Total Bilirubin 2.0 H D AST 35 ALT 36 Alkaline Phosphatase 78 CSF Appearance Sl.cloudy CSF Color Xanthochromic CSF WBC 465 CSF RBC 1020 CSF Neutrophils 70 CSF Lymphocytes 8 CSF Monocytes 20 CSF Eosinophils 1 CSF Glucose 15 L CSF Total Protein 352 H 344 H 04/24/17 05:15 WBC 7.5 Hgb 12.8 Hct 40.0 Plt Count 133 L BUN Creatinine Total Bilirubin AST ALT Alkaline Phosphatase CSF Appearance CSF Color CSF WBC CSF RBC CSF Neutrophils CSF Lymphocytes CSF Monocytes CSF Eosinophils CSF Glucose CSF Total Protein Assessment Severe sepsis syndrome Presumptive Listeria monocytogenes bacteremia per micro Bacterial meningitis likely Listeria related Positive CSF pneumococcal antigen I think this related to Prevnar which I am trying to document with pharmacy ?? refused at admission Atrial fibrillation original reason for admission Plan Continue all current antibiotics as ordered Cehck vanco and gent trough levels please Critical care time spent 40 minutes Suraj CHRISTENSEN Respiratory distress
[2017-04-24 07:19] LABS: ALBUMIN 1.5 g/dl (3.4-5.0); ANION GAP 11 (8-16); BLOOD UREA NITROGEN 23 mg/dL (7-18); CHLORIDE 109 mmol/L (98-107); CO2 25 mmol/L (21-32); GLUCOSE,RANDOM 239 mg/dL (74-106); MAGNESIUM 1.9 mg/dL (1.8-2.4); PHOSPHOROUS 2.1 mg/dL (2.5-4.9); SGOT/AST 28 U/L (15-37); SODIUM 145 mmol/L (136-145)
[2017-04-24 07:21] LABS: ALK PHOS 140 U/L (45-117); BILIRUBIN,TOTAL 1.2 mg/dL (0.2-1.0); CREATININE 0.8 mg/dL (0.55-1.02); SGPT/ALT 32 U/L (12-78); TOT PROT 3.9 g/dl (6.4-8.2)
[2017-04-24] MEDS ORDERED: PROPOFOL 2,000,000 MCG/200 ML VIAL ONE (07:24)
[2017-04-24 07:35] LABS: ALLENS TEST POSITIVE; ARTERIAL BLD GAS O2 SATURATION 99.8 % (90-98.9)
[2017-04-24 08:15] LABS: POTASSIUM 2.9 mmol/L (3.5-5.1)
[2017-04-24 08:16] LABS: CALCIUM 6.8 mg/dL (8.5-10.1)
--- NOTE | 2017-04-24 08:44 | PN ---
Physical Exam: SUBJECTIVE: Patient seen and examined The patient is an 86 year old female with a history of CAD w/ stents, afib on xarelto, HFpEF (EF 67.8%, 2016) and HLD who initially presented to the hospital for afib with RVR now transferred to the ICU for hypotension, fevers, sepsis, and concern for menigitis. Patient was intubated over the weekend and started on pressors. CSF is positive for strep pneumo. Patient is intubated on exam. Otherwise no acute events overnight. OBJECTIVE: Vital Signs Period Temp Pulse Resp BP Sys/Gandara Pulse Ox Last 24 Hr 99 F-102.6 F 90-131 12-37 70-101/50-91 95-98 GENERAL: The patient is intubated and sedated in no acute distress. HEAD: Normal with no signs of trauma. EYES: sclera anicteric, conjunctiva clear. No ptosis. ENT: oropharynx clear without exudates, moist mucous membranes. NECK: Trachea midline, full range of motion, supple. LUNGS: Breath sounds equal, clear to auscultation bilaterally, no wheezes, no crackles, no accessory muscle use. HEART: Tachycardic and irregular rhythm, S1, S2 without murmur, rub or gallop. ABDOMEN: Soft, nontender, nondistended, normoactive bowel sounds, no guarding, no rebound, no hepatosplenomegaly, no masses. EXTREMITIES: 2+ pulses, warm, well-perfused, NEUROLOGICAL: gait not observed. PSYCH: Intubated and sedated. SKIN: Warm, dry, normal turgor, no rashes or lesions noted Laboratory Results - last 24 hr 04/23/17 04/23/17 04/24/17 15:40 16:40 05:15 WBC 7.5 RBC 4.58 Hgb 12.8 Hct 40.0 MCV 87.2 MCH 27.9 MCHC 32.0 RDW 18.1 H Plt Count 133 L MPV 8.7 Neutrophils % 91.1 H Lymphocytes % 4.9 L Monocytes % 3.2 L Eosinophils % 0.7 Basophils % 0.1 PT with INR INR Anticoagulation Therapy Cancelled Puncture Site Cancelled Right brachial Patient Temperature Cancelled ABG pH Cancelled 7.58 H D ABG pCO2 at Pt Temp Cancelled 23.5 L D ABG pO2 at Pt Temp Cancelled 421.0 H* ABG HCO3 Cancelled 22.0 ABG O2 Sat (Measured) Cancelled 100.0 H* ABG O2 Content Cancelled 19.7 ABG Base Excess Cancelled 1.7 José Miguel Test Cancelled O2 Delivery Device Cancelled Vent ac Oxygen Flow Rate Cancelled 100% Vent Mode Cancelled Ac Vent Rate Cancelled 16 Mechanical Rate Cancelled Yes PEEP Cancelled 5.0 Pressure Support Vent Cancelled 400 Sodium Potassium Chloride Carbon Dioxide Anion Gap BUN Creatinine Creat Clearance w eGFR Random Glucose Calcium Phosphorus Magnesium Total Bilirubin AST ALT Alkaline Phosphatase Total Protein Albumin 04/24/17 04/24/17 04/24/17 05:15 05:15 06:30 WBC RBC Hgb Hct MCV MCH MCHC RDW Plt Count MPV Neutrophils % Lymphocytes % Monocytes % Eosinophils % Basophils % PT with INR 12.30 H INR 1.09 Anticoagulation Therapy Puncture Site Right radial Patient Temperature ABG pH 7.54 H ABG pCO2 at Pt Temp 25.1 L ABG pO2 at Pt Temp 167.0 H* D ABG HCO3 21.6 L ABG O2 Sat (Measured) 99.8 H* ABG O2 Content 18.0 ABG Base Excess 0.6 José Miguel Test Positive O2 Delivery Device Oxygen Flow Rate 3l Vent Mode Vent Rate Mechanical Rate PEEP Pressure Support Vent Sodium 145 Potassium 2.9 L* Chloride 109 H Carbon Dioxide 25 Anion Gap 11 BUN 23 H Creatinine 0.8 Creat Clearance w eGFR > 60 Random Glucose 239 H Calcium 6.8 L* Phosphorus 2.1 L Magnesium 1.9 Total Bilirubin 1.2 H D AST 28 ALT 32 Alkaline Phosphatase 140 H Total Protein 3.9 L Albumin 1.5 L Active Medications Generic Name Dose Route Start Last Admin Trade Name Freq PRN Reason Stop Dose Admin Amiodarone HCl 400 mg 04/20/17 10:00 04/23/17 21:27 Cordarone - PO 400 mg BID SIMON Administration Ampicillin Sodium 2 gm/ Sodium 100 mls @ 200 mls/hr 04/22/17 12:00 04/24/17 05:49 Chloride IVPB 200 mls/hr Q4H-IV SIMON Administration Gentamicin Sulfate 30 mg/ 100.75 mls @ 100.75 mls/hr 04/22/17 12:00 04/24/17 01:08 Sodium Chloride IVPB 100.75 mls/hr Q8H-IV SIMON Administration Vancomycin HCl 750 mg/ 250 mls @ 250 mls/hr 04/23/17 10:00 04/23/17 13:00 Dextrose IVPB 250 mls/hr DAILY SIMON Administration Protocol CEFTRIAXONE IN IS-OSM DEXTROSE 2 gm in 50 mls @ 100 mls/hr 04/23/17 10:00 07/05 21:27 Ceftriaxone 2 Gm-D5w Bag IVPB 100 mls/hr BID SIMON Administration Norepinephrine Bitartrate 8, 500 mls @ 5.61 mls/hr 04/23/17 14:00 04/24/17 06 :08 000 mcg/ Dextrose IV 0.1 mcg/kg/min ASDIR SIMON 18.72 mls/hr Protocol Administration 0.03 MCG/KG/MIN Potassium Chloride 10 meq/ 105 mls @ 100 mls/hr 04/24/17 09:00 Sodium Chloride IVPB 04/24/17 11:59 Q60M SIMON Levothyroxine Sodium 75 mcg 04/15/17 07:00 04/24/17 06:07 Synthroid - PO 75 mcg DAILY@0700 SIMON Administration Melatonin 5 mg 04/18/17 16:54 04/19/17 23:05 Melatonin PO 5 mg HS PRN Administration INSOMNIA Metoprolol Tartrate 100 mg 04/18/17 22:00 04/23/17 21:27 Lopressor - PO Not Given BID SIMON Saliva Substitute 1 applic 04/20/17 17:15 04/23/17 10:18 Mouthkote Solution - MM 1 applic DAILY SIMON Administration ASSESSMENT/PLAN: The patient is an 86 year old female with a history of CAD w/ stents, afib on xarelto, HFpEF (EF 67.8%, 2016) and HLD who initially presented to the hospital for afib with RVR now transferred to the ICU for hypotension, fevers, sepsis, and concern for menigitis. NEURO Patient is intubated. -Sedated with propofol. -Will continue to monitor. CV #Hypotension Patient noted to be hypotensive over the weekend and started on pressors. -Continue levophed and titrate as needed to maintain MAP >65. -Will continue to monitor. #Afib with RVR Patient initially presented with a hr of 160 now rate controlled to 100-110 on amiodarone. Patient on xarelto for anti-coagulation. Cardiology is following. -Continue amidarone per cardiology recs. -Will continue to monitor closely. -Appreciate cardiology recs. #CHF (EF 67.8%, 2016) Patient was initially being diuriesed, however due to the patient's hypotension , she is no longer on a dieretic agent. -Conservative fluid hydration at the moment. -Will obtain an echocardiogram to evaluate further. -Will continue to monitor closely. RESP #Respiratory distress Patient noted to have worsening respiratory distress over the weekend and was intubated 1 day ago. -Continue vent settings and ween down as tolerated. -Close monitoring of the patient's O2 saturation. -Will continue to monitor. GI #Elevated Liver Enzymes -Will continue to monitor and trend. Renal No issues currently -Will continue to monitor bun/creatinine. ID #Sepsis Patient noted to be febrile last week with hypotension concerning for sepsis or septic shock. Chest plain film demonstrates bilateral pleural effusions as well as findings concerning for a possible pneumonia. Possible sources of the patient's infection could be pneumonia vs. UTI. Blood cultures and urine cultures were sent. Blood cultures are growing gram positive bacilli. Lumbar puncture over the weekend was positive for strep pneumo in the CSF concerning for menigitis. We will also cover for listeria given the patient's clinical picture. Patient's urine is growing legionella. -Continue Ceftriaxone, Ampicillin, Vancomycin, and Gentamycin for aggressive antibiotic coverage. -Continue to manage fever with tylenol. -Serial CXR. -Follow up on blood, CSF and urine cultures. -Will continue to monitor. -ID is follow and appreciate recs. MSK No issues currently FEN/GI -Replete electrolytes PRN, will monitor DISPO: Continue ICU level of care. Visit type - Emergency Visit Emergency Visit: No - New Patient This patient is new to me today: No - Critical Care Critical Care patient: Yes Total Critical Care Time (in minutes): 35 Critical Care Statement: The care of this patient involved high complexity decision making to prevent further life threatening deterioration of the patient 's condition and/or to evaluate & treat vital organ system(s) failure or risk of failure.
[2017-04-24] MEDS ORDERED: POTASSIUM CHLORIDE ORAL LIQUID 20 MEQ/15 ML PO ONE (08:55)
[2017-04-24] MEDS: AMIODARONE HCL 200 MG TABLET (FP) PO SCH ×2 (09:20→21:11)
[2017-04-24] MEDS: VANCOMYCIN 750 MG in DEXTROSE 5%-WATER - 250 ML IVPB SCH (09:21)
[2017-04-24] MEDS: POTASSIUM CHLORIDE 10 MEQ in SODIUM CHLORIDE 100 ML IVPB SCH ×3 (09:23→11:38)
[2017-04-24] MEDS: METOPROLOL TARTRATE 50 MG TABLET (FP) PO SCH ×2 (10:40→21:11)
[2017-04-24] MEDS: CEFTRIAXONE IN IS-OSM DEXTROSE 2 GM/50 ML BAG IVPB SCH (10:44)
[2017-04-24] MEDS: LYTES/YERBA SANTA 240 ML BOTTLE MM SCH (11:39)
--- NOTE | 2017-04-24 11:57 | PN ---
Teaching Attending Note Name of Resident: Chester Zavala ATTENDING PHYSICIAN STATEMENT I saw and evaluated the patient. I reviewed the resident's note and discussed the case with the resident. I agree with the resident's findings and plan as documented. SUBJECTIVE: Patient seen and examined in the ICU. Events from the weekend noted. Remains intubated and sedated. AC Mode of vent. NE for hemodynamic support. Previous ECHO revealed moderate to severe LV dysfunction. Intake & Output 04/21/17 04/22/17 04/23/17 04/24/17 23:59 23:59 23:59 23:59 Intake Total 3010 960 1789 Output Total 1100 Balance 3010 960 689 Weight 117 lb 1.6 oz 111 lb 1.6 oz 110 lb 1.6 oz 113 lb 9.6 oz Last Vital Signs Temp Pulse Resp BP Pulse Ox 98.5 F 112 H 12 86/67 99 04/24/17 10:00 04/24/17 10:00 04/24/17 11:30 04/24/17 10:00 04/24/17 10:02 Active Medications Amiodarone HCl (Cordarone -) 400 mg PO BID SIMON Last Admin: 04/24/17 09:20 Dose: 400 mg Ampicillin Sodium 2 gm/ Sodium (Chloride) 100 mls @ 200 mls/hr IVPB Q4H-IV SIMON Last Admin: 04/24/17 09:21 Dose: 200 mls/hr Gentamicin Sulfate 30 mg/ (Sodium Chloride) 100.75 mls @ 100.75 mls/hr IVPB Q8H -IV SIMON Last Admin: 04/24/17 11:37 Dose: 100.75 mls/hr Vancomycin HCl 750 mg/ (Dextrose) 250 mls @ 250 mls/hr IVPB DAILY SIMON PRN Reason: Protocol Last Admin: 04/24/17 09:21 Dose: 250 mls/hr CEFTRIAXONE IN IS-OSM DEXTROSE (Ceftriaxone 2 Gm-D5w Bag) 2 gm in 50 mls @ 100 mls/hr IVPB BID SIMON Last Admin: 04/24/17 10:44 Dose: 100 mls/hr Norepinephrine Bitartrate 8, (000 mcg/ Dextrose) 500 mls @ 5.61 mls/hr IV ASDIR SIMON; 0.03 MCG/KG/MIN PRN Reason: Protocol Last Admin: 04/24/17 06:08 Dose: 0.1 mcg/kg/min, 18.72 mls/hr Levothyroxine Sodium (Synthroid -) 75 mcg PO DAILY@0700 [facility] Last Admin: 04/24/17 06:07 Dose: 75 mcg Melatonin (Melatonin) 5 mg PO HS PRN PRN Reason: INSOMNIA Last Admin: 04/19/17 23:05 Dose: 5 mg Metoprolol Tartrate (Lopressor -) 100 mg PO BID [facility] Last Admin: 04/24/17 10:40 Dose: Not Given Saliva Substitute (Mouthkote Solution -) 1 applic MM DAILY [facility] Last Admin: 04/24/17 11:39 Dose: Not Given Gen: Intubated and sedated on AC mode of vent Heart: tachycardic Lung: Bilateral rhonchi Abd: soft, nontender Ext: (+) edema, cool extremities Laboratory Results - last 24 hr 04/23/17 04/23/17 04/24/17 15:40 16:40 05:15 WBC 7.5 RBC 4.58 Hgb 12.8 Hct 40.0 MCV 87.2 MCH 27.9 MCHC 32.0 RDW 18.1 H Plt Count 133 L MPV 8.7 Neutrophils % 91.1 H Lymphocytes % 4.9 L Monocytes % 3.2 L Eosinophils % 0.7 Basophils % 0.1 PT with INR INR Anticoagulation Therapy Cancelled Puncture Site Cancelled Right brachial Patient Temperature Cancelled ABG pH Cancelled 7.58 H D ABG pCO2 at Pt Temp Cancelled 23.5 L D ABG pO2 at Pt Temp Cancelled 421.0 H* ABG HCO3 Cancelled 22.0 ABG O2 Sat (Measured) Cancelled 100.0 H* ABG O2 Content Cancelled 19.7 ABG Base Excess Cancelled 1.7 José Miguel Test Cancelled O2 Delivery Device Cancelled Vent ac Oxygen Flow Rate Cancelled 100% Vent Mode Cancelled Ac Vent Rate Cancelled 16 Mechanical Rate Cancelled Yes PEEP Cancelled 5.0 Pressure Support Vent Cancelled 400 Sodium Potassium Chloride Carbon Dioxide Anion Gap BUN Creatinine Creat Clearance w eGFR Random Glucose Calcium Phosphorus Magnesium Total Bilirubin AST ALT Alkaline Phosphatase Total Protein Albumin 04/24/17 04/24/17 04/24/17 05:15 05:15 06:30 WBC RBC Hgb Hct MCV MCH MCHC RDW Plt Count MPV Neutrophils % Lymphocytes % Monocytes % Eosinophils % Basophils % PT with INR 12.30 H INR 1.09 Anticoagulation Therapy Puncture Site Right radial Patient Temperature ABG pH 7.54 H ABG pCO2 at Pt Temp 25.1 L ABG pO2 at Pt Temp 167.0 H* D ABG HCO3 21.6 L ABG O2 Sat (Measured) 99.8 H* ABG O2 Content 18.0 ABG Base Excess 0.6 José Miguel Test Positive O2 Delivery Device Oxygen Flow Rate 3l Vent Mode Vent Rate Mechanical Rate PEEP Pressure Support Vent Sodium 145 Potassium 2.9 L* Chloride 109 H Carbon Dioxide 25 Anion Gap 11 BUN 23 H Creatinine 0.8 Creat Clearance w eGFR > 60 Random Glucose 239 H Calcium 6.8 L* Phosphorus 2.1 L Magnesium 1.9 Total Bilirubin 1.2 H D AST 28 ALT 32 Alkaline Phosphatase 140 H Total Protein 3.9 L Albumin 1.5 L IMP: R/O Meningitis - ?Listeria/Pneumococcal Acute Hypoxic Respiratory Failure Acute Colitis Pneumonia Bacteremia Severe Sepsis Atrial Fibrillation with RVR Acute Kidney Injury improving Lactic Acidosis resolved Elevated LFTs Acute on Chronic Diastolic Heart Failure Coagulopathy Hypothyroidism - continue antibiotics per ID - f/u CSF cultures - AC mode of vent - IVF - Titrate pressors to maintain MAP - ECHO : may benefit from Inotropes - monitor urine output, creatinine - monitor LFTs, coags - rate control - AC - replete lytes - O2 to keep SpO2 >90% - continue ICU monitoring - Eneteral feeds - guarded prognosis Dr Laguna Critical care time spent in reviewing chart, evaluating patient and formulating plan 35 min
--- NOTE | 2017-04-24 12:53 | PN ---
Progress Note, Physician History of Present Illness: "Patient is an 86 year old female with a significant past medical history of CAD w/ stents, afib on xarelto, HFpEF (EF 67.8%, 2016) and HLD who presents to the ED for tachycardia. Patient was seen in cardiology clinic today and was found on EKG to be in afib with RVR with a rate of 160. She was subsequently sent to ER for management. Patient currently has no complaints or pain while in the ED. Denies ever having CP/SOB/palpitations. Denies F/C/N/V/D. Reports compliance with all of her medications. Patient presented to the office Off amiodarone and with reduced dose of bb. 2 weeks h/o of decompensated chf rx with increased dose of lasix. yesterday vissiting nurse noted pulse 160's, ems called, confirmed, patient refused admission to hospital yesterday. Today in my office she presented asymptomatic with +3 lower extremity edema and AF with RVR 167 bpm. PMH ASHD s/p PTCA SANNA mLAD PTCA D2 2007 Atrial fibrillation HHD HTN Positive MIBI in the past refused repeated c. cath - Current Medication List Current Medications: Active Medications Amiodarone HCl (Cordarone -) 400 mg PO BID [facility] Last Admin: 04/24/17 09:20 Dose: 400 mg Ampicillin Sodium 2 gm/ Sodium (Chloride) 100 mls @ 200 mls/hr IVPB Q4H-IV [facility] Last Admin: 04/24/17 09:21 Dose: 200 mls/hr Gentamicin Sulfate 30 mg/ (Sodium Chloride) 100.75 mls @ 100.75 mls/hr IVPB Q8H -IV [facility] Last Admin: 04/24/17 11:37 Dose: 100.75 mls/hr Vancomycin HCl 750 mg/ (Dextrose) 250 mls @ 250 mls/hr IVPB DAILY [facility] PRN Reason: Protocol Last Admin: 04/24/17 09:21 Dose: 250 mls/hr CEFTRIAXONE IN IS-OSM DEXTROSE (Ceftriaxone 2 Gm-D5w Bag) 2 gm in 50 mls @ 100 mls/hr IVPB BID [facility] Last Admin: 04/24/17 10:44 Dose: 100 mls/hr Norepinephrine Bitartrate 8, (000 mcg/ Dextrose) 500 mls @ 5.61 mls/hr IV ASDIR [facility]; 0.03 MCG/KG/MIN PRN Reason: Protocol Last Admin: 04/24/17 06:08 Dose: 0.1 mcg/kg/min, 18.72 mls/hr Levothyroxine Sodium (Synthroid -) 75 mcg PO DAILY@0700 [facility] Last Admin: 04/24/17 06:07 Dose: 75 mcg Melatonin (Melatonin) 5 mg PO HS PRN PRN Reason: INSOMNIA Last Admin: 04/19/17 23:05 Dose: 5 mg Metoprolol Tartrate (Lopressor -) 100 mg PO BID [facility] Last Admin: 04/24/17 10:40 Dose: Not Given Saliva Substitute (Mouthkote Solution -) 1 applic MM DAILY [facility] Last Admin: 04/24/17 11:39 Dose: Not Given - Objective Vital Signs: Vital Signs Temperature 98.5 F 04/24/17 10:00 Pulse Rate 112 H 04/24/17 10:00 Respiratory Rate 12 04/24/17 11:30 Blood Pressure 86/67 04/24/17 10:00 O2 Sat by Pulse Oximetry (%) 99 04/24/17 10:02 Eyes: Yes: WNL, Conjunctiva Clear, EOM Intact HENT: Yes: WNL, Atraumatic, Normocephalic Neck: Yes: WNL, Supple, Trachea Midline Cardiovascular: Yes: WNL, Regular Rate and Rhythm Respiratory: Yes: Intubated, Mechanically Ventilated Gastrointestinal: Yes: WNL, Normal Bowel Sounds Genitourinary: Yes: WNL Musculoskeletal: Yes: WNL Extremities: Yes: WNL Edema: No Integumentary: Yes: WNL Neurological: Yes: WNL, Alert, Oriented ...Motor Strength: WNL Psychiatric: Yes: WNL Labs: CBC, BMP 04/24/17 05:15 04/24/17 05:15 INR, PTT INR 1.09 (0.82-1.09) 04/24/17 05:15 Fibrinogen 252.0 mg/dL (238-498) 04/23/17 05:15 Problem List - Problems (1) Acute on chronic systolic and diastolic heart failure, NYHA class 2 Code(s): I50.43 - ACUTE ON CHRONIC COMBINED SYSTOLIC AND DIASTOLIC HRT FAIL (2) CAD (coronary artery disease) Code(s): I25.10 - ATHSCL HEART DISEASE OF CREEK CORONARY ARTERY W/O ANG PCTRS (3) Dizziness Code(s): R42 - DIZZINESS AND GIDDINESS (4) Afib Code(s): I48.91 - UNSPECIFIED ATRIAL FIBRILLATION (5) CHF (congestive heart failure) Code(s): I50.9 - HEART FAILURE, UNSPECIFIED Assessment/Plan (1) Atrial fibrillation with RVR Assessment/Plan: Amiodarone and metoprolol. LFTs are ok. INR markedly elevated (after rivaroxaban; diastolic CHF with liver stress, sepsis are other likely contributing factors). Code(s): I48.91 - UNSPECIFIED ATRIAL FIBRILLATION (2) Acute on chronic systolic and diastolic heart failure, NYHA class 2 Assessment/Plan: On amiodarone and metoprolol. Problematic giving other agents (e.g. ACEI, RAAS, hydralazine + isordil) at the present time due to renal insufficiency and relative hypotension. repeat echo to f/u ef Code(s): I50.43 - ACUTE ON CHRONIC COMBINED SYSTOLIC AND DIASTOLIC HRT FAIL (3) CAD (coronary artery disease) Code(s): I25.10 - ATHSCL HEART DISEASE OF [place] CORONARY ARTERY W/O ANG PCTRS (4) Renal insufficiency Assessment/Plan: Secondary to hypotension and sepsis. Now on fluids due to sepsis, increasing lactate. Code(s): N28.9 - DISORDER OF KIDNEY AND URETER, UNSPECIFIED (5) Fever and gram + bacteremia: Assessment/Plan: Sepsis. Antibiotics per ID; antipyretics. septic shock cont abx pressors and IVF Code(s): R50.9 - FEVER, UNSPECIFIED (7) Acute respiratory failure Code(s): J96.00 - ACUTE RESPIRATORY FAILURE, UNSP W HYPOXIA OR HYPERCAPNIA May require intubation, as per critical care team POOR PROGNOSIS, CRITICALLY ILL, ELDERLY WITH LITTLE RESERVE. ADVANCED DIRECTIVES TO BE RE-ADDRESSED
[2017-04-24 13:15] LABS: ARTERIAL BLOOD GAS PCO2 33.3 mmHg (35-45); ARTERIAL BLOOD GAS pH 7.45 (7.35-7.45)
[2017-04-24 13:16] LABS: ALLENS TEST POSITIVE
--- NOTE | 2017-04-24 17:54 | PN ---
Teaching Attending Note Name of Resident: Luisito Steele ATTENDING PHYSICIAN STATEMENT Time of evaluation: 9:05 AM I saw and evaluated the patient. I reviewed the resident's note and discussed the case with the resident. I agree with the resident's findings and plan as documented. SUBJECTIVE: Patient seen and examined. intubated sedated, unable to assess for ROS. OBJECTIVE: Vital Signs Period Temp Pulse Resp BP Sys/Gandara Pulse Ox Last 24 Hr 98.1 F-102.6 F 90-149 12-36 74-113/54-98 95-100 Intake & Output 04/21/17 04/22/17 04/23/17 04/24/17 23:59 23:59 23:59 23:59 Intake Total 3010 960 1789 Output Total 1100 Balance 3010 960 689 Weight 117 lb 1.6 oz 111 lb 1.6 oz 110 lb 1.6 oz 113 lb 9.6 oz general: intubated, sedated in bed, anasarcic on exam CVS:S1S2 irregular tachycardic Abdomen: soft, distended, positive bowel sounds, no grimacing on deep palpation Chest: limited exam, few rales, but no wheezing on anterior auscultation Extremities; improved lower extremities Home Medication List Medication Instructions Recorded Confirmed Type Lisinopril [Zestril] 2.5 mg PO DAILY 03/13/16 04/14/17 History Levothyroxine [Synthroid -] 75 mcg PO DAILY@0700 04/14/17 04/14/17 History Metoprolol Tartrate 25 mg PO DAILY 04/18/17 04/18/17 History Omeprazole 40 mg PO DAILY 04/18/17 04/18/17 History Potassium Citrate [Potassium 20 meq PO DAILY 04/18/17 04/18/17 History Citrate ER] Active Medications Generic Name Dose Route Start Last Admin Trade Name Freq PRN Reason Stop Dose Admin Amiodarone HCl 400 mg 04/20/17 10:00 04/24/17 09:20 Cordarone - PO 400 mg BID SIMON Administration Ampicillin Sodium 2 gm/ Sodium 100 mls @ 200 mls/hr 04/22/17 12:00 04/24/17 15:17 Chloride IVPB 200 mls/hr Q4H-IV SIMON Administration Gentamicin Sulfate 30 mg/ 100.75 mls @ 100.75 mls/hr 04/22/17 12:00 04/24/17 11:37 Sodium Chloride IVPB 100.75 mls/hr Q8H-IV SIMON Administration Norepinephrine Bitartrate 8, 500 mls @ 5.61 mls/hr 04/23/17 14:00 04/24/17 06 :08 000 mcg/ Dextrose IV 0.1 mcg/kg/min ASDIR SIMON 18.72 mls/hr Protocol Administration 0.03 MCG/KG/MIN Propofol 1,000,000 mcg in 100 mls @ 1.546 mls/hr 04/24/17 18:00 Diprivan - IVPB TITR SIMON Protocol 5 MCG/KG/MIN Levothyroxine Sodium 75 mcg 04/15/17 07:00 04/24/17 06:07 Synthroid - PO 75 mcg DAILY@0700 SIMON Administration Melatonin 5 mg 04/18/17 16:54 04/19/17 23:05 Melatonin PO 5 mg HS PRN Administration INSOMNIA Metoprolol Tartrate 100 mg 04/18/17 22:00 04/24/17 10:40 Lopressor - PO Not Given BID SIMON Saliva Substitute 1 applic 04/20/17 17:15 04/24/17 11:39 Mouthkote Solution - MM Not Given DAILY [facility] Laboratory Results - last 24 hr 04/24/17 04/24/17 04/24/17 05:15 05:15 05:15 WBC 7.5 RBC 4.58 Hgb 12.8 Hct 40.0 MCV 87.2 MCH 27.9 MCHC 32.0 RDW 18.1 H Plt Count 133 L MPV 8.7 Neutrophils % 91.1 H Lymphocytes % 4.9 L Monocytes % 3.2 L Eosinophils % 0.7 Basophils % 0.1 PT with INR 12.30 H INR 1.09 Anticoagulation Therapy Puncture Site ABG pH ABG pCO2 at Pt Temp ABG pO2 at Pt Temp ABG HCO3 ABG O2 Sat (Measured) ABG O2 Content ABG Base Excess José Miguel Test O2 Delivery Device Oxygen Flow Rate Vent Mode Vent Rate Mechanical Rate PEEP Pressure Support Vent Sodium 145 Potassium 2.9 L* Chloride 109 H Carbon Dioxide 25 Anion Gap 11 BUN 23 H Creatinine 0.8 Creat Clearance w eGFR > 60 Random Glucose 239 H Calcium 6.8 L* Phosphorus 2.1 L Magnesium 1.9 Total Bilirubin 1.2 H D AST 28 ALT 32 Alkaline Phosphatase 140 H Total Protein 3.9 L Albumin 1.5 L 04/24/17 04/24/17 06:30 12:55 WBC RBC Hgb Hct MCV MCH MCHC RDW Plt Count MPV Neutrophils % Lymphocytes % Monocytes % Eosinophils % Basophils % PT with INR INR Anticoagulation Therapy No Result Required. Puncture Site Right radial Right radial ABG pH 7.54 H 7.45 ABG pCO2 at Pt Temp 25.1 L 33.3 L D ABG pO2 at Pt Temp 167.0 H* D 142.0 H D ABG HCO3 21.6 L 22.5 ABG O2 Sat (Measured) 99.8 H* ABG O2 Content 18.0 ABG Base Excess 0.6 José Miguel Test Positive Positive O2 Delivery Device No Result Required. Oxygen Flow Rate 3l No Result Required. Vent Mode A/c Vent Rate No Result Required. Mechanical Rate No Result Required. PEEP 5.0 Pressure Support Vent No Result Required. Sodium Potassium Chloride Carbon Dioxide Anion Gap BUN Creatinine Creat Clearance w eGFR Random Glucose Calcium Phosphorus Magnesium Total Bilirubin AST ALT Alkaline Phosphatase Total Protein Albumin Microbiology 04/22/17 11:34 Blood - Peripheral Venous Blood Culture - Preliminary NO GROWTH OBTAINED AFTER 48 HOURS, INCUBATION TO CONTINUE FOR 3 DAYS. 04/22/17 11:29 Blood - Peripheral Venous Blood Culture - Preliminary NO GROWTH OBTAINED AFTER 48 HOURS, INCUBATION TO CONTINUE FOR 3 DAYS. 04/20/17 08:30 Blood - Peripheral Venous Blood Culture - Final Listeria Monocytogenes 04/20/17 09:15 Blood - Peripheral Venous Blood Culture - Preliminary Listeria Monocytogenes 04/22/17 16:45 Cerebral Spinal Fluid - Lumbar Puncture Gram Stain - Final 04/22/17 16:45 Cerebral Spinal Fluid - Lumbar Puncture CSF Culture - Preliminary 04/23/17 10:05 Urine For Antigen Detection Legionella Antigen - Final 04/23/17 10:05 Urine For Antigen Detection Streptococcus pneumoniae Antigen (M - Final 04/22/17 16:45 Cerebral Spinal Fluid - Lumbar Puncture Streptococcus pneumoniae Antigen (M - Final 04/18/17 08:00 Blood - Peripheral Venous Blood Culture - Final NO GROWTH AFTER 5 DAYS INCUBATION 04/18/17 08:00 Blood - Peripheral Venous Blood Culture - Final NO GROWTH AFTER 5 DAYS INCUBATION 04/20/17 11:05 Urine - Urine - Catheterized Urine Culture - Final NO GROWTH OBTAINED 04/20/17 07:55 Nasopharyngeal Swab Influenza Types A,B Antigen (SÁNCHEZ) - Final 04/20/17 07:55 Nasopharyngeal Swab - Final 04/15/17 04:30 Nasopharyngeal Swab Influenza Types A,B Antigen (SÁNCHEZ) - Final 04/15/17 04:30 Nasopharyngeal Swab - Final CXR - distal tip in lower chest ASSESSMENT AND PLAN: 86yo F with PMH AFib on xarelto, CAD s/p stents, hypothyroid, Systolic CHF, dyslipidemia 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 for afib with RVR -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 -Acute hypoxic respiratory failure from septic shock and likely systolic HF exacerbation from volume resuscitation -Lactic acidosis -Afib with RVR -Acute Systolic Heart failure exacerbation -Coagulopathy, elevated INR, suspect from hepatic congestion/amiodarone -Abnormal LFTs, likely congestive hepatopathy -Hypothyoridism -SELMA, 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 Blood cultures confirm Listeria. Ampicillin/gentamicin. Check Gentamicin levels. Ceftriaxone/vancomycin d/margo by ID. Patient with CSF Pneumococcal Ag positive but unclear if recent vaccination inhouse and blood cultures with listeria. Follow up with ID. Neuro input appreciated. Lactic acidosis resolved with hydration, but patient ansarcic now, titrate up pressors for hypotension. Intubated and sedated today. INR trended down for now, anticoagulation on hold given septic shock and respiratory failure, resume per cardiology. Amiodarone per cardiology, metoprolol with holding parameters, however hypotensive now limiting dosing, currently on presors. earlier with gentle diuresis, now on hold given sepsis/lactic acidosis and need for hydration. Low threshold for pressors. s/p lasix and kayexalate on 04/19 with improved renal/hepatic function s/p 3 days of Vit K. CT brain 04/19 neg for acute concerns. DVTPPX start heparin in 24 hours pending INR. PT eval noted earlier, now with clinical worsening. 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 Will need to address goals of care based on the clinical progression. Replete phos. total critical care time spent 40 min.
[2017-04-24] MEDS: PROPOFOL 1,000,000 MCG/100 ML VIAL IVPB SCH (18:01)
--- NOTE | 2017-04-24 18:31 | PN ---
Progress Note (short form) - Note Progress Note: PAtient seen and examined Intubates/sedated Last Vital Signs Temp Pulse Resp BP Pulse Ox 98.8 F 115 H 13 107/61 99 04/24/17 16:00 04/24/17 18:00 04/24/17 18:26 04/24/17 18:00 04/24/17 14:00 Cor: RSR, No murmurs, No gallops Lungs: decreased bases Abd: Soft, Normal bowel sounds, No organomegaly Ext:No significant edema Abnormal Lab Results 04/24/17 04/24/17 04/24/17 05:15 05:15 05:15 RDW 18.1 H Plt Count 133 L Neutrophils % 91.1 H Lymphocytes % 4.9 L Monocytes % 3.2 L PT with INR 12.30 H ABG pH ABG pCO2 at Pt Temp ABG pO2 at Pt Temp ABG HCO3 ABG O2 Sat (Measured) Potassium 2.9 L* Chloride 109 H BUN 23 H Random Glucose 239 H Calcium 6.8 L* Phosphorus 2.1 L Total Bilirubin 1.2 H D Alkaline Phosphatase 140 H Total Protein 3.9 L Albumin 1.5 L 04/24/17 04/24/17 06:30 12:55 RDW Plt Count Neutrophils % Lymphocytes % Monocytes % PT with INR ABG pH 7.54 H ABG pCO2 at Pt Temp 25.1 L 33.3 L D ABG pO2 at Pt Temp 167.0 H* D 142.0 H D ABG HCO3 21.6 L ABG O2 Sat (Measured) 99.8 H* Potassium Chloride BUN Random Glucose Calcium Phosphorus Total Bilirubin Alkaline Phosphatase Total Protein Albumin Active Medications Generic Name Dose Route Start Last Admin Trade Name Freq PRN Reason Stop Dose Admin Amiodarone HCl 400 mg 04/20/17 10:00 04/24/17 09:20 Cordarone - PO 400 mg BID SIMON Administration Ampicillin Sodium 2 gm/ Sodium 100 mls @ 200 mls/hr 04/22/17 12:00 04/24/17 17:59 Chloride IVPB 200 mls/hr Q4H-IV SIMON Administration Gentamicin Sulfate 30 mg/ 100.75 mls @ 100.75 mls/hr 04/22/17 12:00 04/24/17 18:04 Sodium Chloride IVPB 100.75 mls/hr Q8H-IV SIMON Administration Norepinephrine Bitartrate 8, 500 mls @ 5.61 mls/hr 04/23/17 14:00 04/24/17 17 :59 000 mcg/ Dextrose IV 0.1 mcg/kg/min ASDIR SIMON 18.72 mls/hr Protocol Administration 0.03 MCG/KG/MIN Propofol 1,000,000 mcg in 100 mls @ 1.546 mls/hr 04/24/17 18:00 04/24/17 18: 01 Diprivan - IVPB 15 mcg/kg/min TITR SIMON 4.638 mls/hr Protocol Administration 5 MCG/KG/MIN Levothyroxine Sodium 75 mcg 04/15/17 07:00 04/24/17 06:07 Synthroid - PO 75 mcg DAILY@0700 SIMON Administration Melatonin 5 mg 04/18/17 16:54 04/19/17 23:05 Melatonin PO 5 mg HS PRN Administration INSOMNIA Metoprolol Tartrate 100 mg 04/18/17 22:00 04/24/17 10:40 Lopressor - PO Not Given BID SIMON Saliva Substitute 1 applic 04/20/17 17:15 04/24/17 11:39 Mouthkote Solution - MM Not Given DAILY SIMON A/P 86 yo F w/ h/o CAD w/ stents, afib on xarelto, HFpEF (EF 67.8%, 2016) and HLD who 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 sepsis -- listeria On ampicillin/gentamicin coagulopathy--due to sepsis/CHF/xeralto/vit. K def--resolved a/c --per cardiology monitor CBC/platelets
[2017-04-24 21:31] LABS: ARTERIAL BLD GAS O2 SATURATION 99.1 % (90-98.9)
[2017-04-24 21:32] LABS: ARTERIAL BLOOD GAS BASE EXCESS -0.5 meq/l (-2-2)
[2017-04-24 21:47] LABS: ALLENS TEST POSITIVE
[2017-04-25] MEDS: GENTAMICIN IVPB SCH ×3 (01:01→17:02)
[2017-04-25] MEDS: SODIUM CHLORIDE IVPB SCH ×3 (01:01→17:02)
[2017-04-25] MEDS: AMPICILLIN - 2 GM in SODIUM CHLORIDE 100 ML IVPB SCH ×6 (01:10→22:25)
[2017-04-25 06:10] LABS: BASO % 0.1 % (0-2.0); EOS % 1.5 % (0-4.5); HEMATOCRIT 41.4 % (32.4-45.2); LYMPH % 3.4 % (8-40); MCH 27.5 pg (25.7-33.7); MCHC 31.4 g/dl (32.0-36.0); MEAN CELL VOLUME 87.4 fl (80-96); MEAN PLT VOLUME 9.1 fl (7.5-11.1); PLATELET COUNT 139 K/MM3 (134-434); RBC 4.73 M/mm3 (3.60-5.2); RDW 18.2 % (11.6-15.6); WHITE BLOOD COUNT 7.5 K/mm3 (4.0-10.0)
[2017-04-25 06:22] LABS: ARTERIAL BLD GAS O2 SATURATION 99.5 % (90-98.9); ARTERIAL BLOOD GAS BASE EXCESS 0.4 meq/l (-2-2); ARTERIAL BLOOD GAS PCO2 33.8 mmHg (35-45); ARTERIAL BLOOD GAS pH 7.45 (7.35-7.45)
[2017-04-25 06:26] LABS: ALBUMIN 1.4 g/dl (3.4-5.0); ANION GAP 7 (8-16); BLOOD UREA NITROGEN 15 mg/dL (7-18); CHLORIDE 107 mmol/L (98-107); CO2 26 mmol/L (21-32); GLUCOSE,RANDOM 232 mg/dL (74-106); MAGNESIUM 1.6 mg/dL (1.8-2.4); POTASSIUM 3.7 mmol/L (3.5-5.1); SGOT/AST 17 U/L (15-37); SODIUM 140 mmol/L (136-145)
[2017-04-25 06:32] LABS: ALLENS TEST POSITIVE
[2017-04-25 06:35] LABS: ALK PHOS 115 U/L (45-117); BILIRUBIN,TOTAL 1.1 mg/dL (0.2-1.0); CREATININE 0.6 mg/dL (0.55-1.02); PHOSPHOROUS 1.2 mg/dL (2.5-4.9); SGPT/ALT 27 U/L (12-78); TOT PROT 3.9 g/dl (6.4-8.2)
--- NOTE | 2017-04-25 06:36 | PN ---
Physical Exam: SUBJECTIVE: Patient seen and examined by me this AM - Pt with no acute overnight events. BP improved, maintained well on pressor support. Pt with worsening pulmonary congestion on imaging, exam; will likely require diuresis to improve saturation. Pt desatting to high 70s on 50% FiO2 when seen in AM, increased to 70% with improvement in saturation to 100%. NG repositioned yesterday, due to cephalic malposition. Pt w/ poor peripheral perfusion. Remains sedated, intubated. OBJECTIVE: Vital Signs Intake & Output 04/22/17 04/23/17 04/24/17 04/25/17 23:59 23:59 23:59 23:59 Intake Total 960 1789 2330 1650.4 Output Total 1100 900 100 Balance 427 678 3387 1550.4 Weight 50.394 kg 49.941 kg 51.528 kg 56.245 kg Period Temp Pulse Resp BP Sys/Gandara Pulse Ox Last 24 Hr 98.1 F-100.9 F 95-149 12-36 76-113/61-98 98-100 GENERAL: Elderly woman lying in bed. Sedated, intubated. Nonresponsive to sternal rub. HEAD: NG tube in place. Normal with no signs of trauma. EYES: Pupils pinpoint, poorly reactive to light; sclera anicteric. No lid lag. EARS, NOSE, THROAT: Ears normal, nares patent. ETT tube at lip with dried blood at lips. Moist mucous membranes. NECK: No lymphadenopathy, or masses. LUNGS: Decreased breath sounds at bases, BL coarse rales diffusely. Mechanical breath sounds in upper airway. No accessory muscle use. HEART: Irregularly Irregular, normal S1 and S2 without murmur, rub or gallop. ABDOMEN: Soft, nontender, not distended, normoactive bowel sounds, no guarding, no rebound, no masses. No hepatomegaly or splenomegaly. MUSCULOSKELETAL: Normal range of motion at all joints. No bony deformities or tenderness. No CVA tenderness. UPPER EXTREMITIES: 1+ radial pulses, cool to touch. No cyanosis. No clubbing. 1 + peripheral edema BL. LOWER EXTREMITIES: trace pitting edema BL to knees, much improved. 1+ pulses, very cool to touch. No calf tenderness. BL superficial varicose veins on anterior shins. NEUROLOGICAL: Nonverbal, sedated. No withdrawal to pain. Brainstem reflexes intact. SKIN: Warm, dry, normal turgor, no rashes or lesions noted, normal capillary refill. Laboratory Results - last 24 hr CBC, BMP 04/25/17 05:10 04/25/17 05:10 04/23/17 04/23/17 04/24/17 05:15 16:40 05:15 WBC 7.5 RBC 4.58 Hgb 12.8 Hct 40.0 MCV 87.2 MCH 27.9 MCHC 32.0 RDW 18.1 H Plt Count 133 L MPV 8.7 Neutrophils % 91.1 H Lymphocytes % 4.9 L Monocytes % 3.2 L Eosinophils % 0.7 Basophils % 0.1 PT with INR INR Anticoagulation Therapy Puncture Site ABG pH ABG pCO2 at Pt Temp ABG pO2 at Pt Temp ABG HCO3 ABG O2 Sat (Measured) ABG O2 Content ABG Base Excess José Miguel Test Positive O2 Delivery Device Oxygen Flow Rate Vent Mode Vent Rate Mechanical Rate PEEP Pressure Support Vent Sodium Potassium Chloride Carbon Dioxide Anion Gap BUN Creatinine Creat Clearance w eGFR Random Glucose Calcium Ionized Calcium 5.3 Phosphorus Magnesium Total Bilirubin AST ALT Alkaline Phosphatase Total Protein Albumin Gentamicin Trough 04/24/17 04/24/17 04/24/17 05:15 05:15 06:30 WBC RBC Hgb Hct MCV MCH MCHC RDW Plt Count MPV Neutrophils % Lymphocytes % Monocytes % Eosinophils % Basophils % PT with INR 12.30 H INR 1.09 Anticoagulation Therapy Puncture Site Right radial ABG pH 7.54 H ABG pCO2 at Pt Temp 25.1 L ABG pO2 at Pt Temp 167.0 H* D ABG HCO3 21.6 L ABG O2 Sat (Measured) 99.8 H* ABG O2 Content 18.0 ABG Base Excess 0.6 José Miguel Test Positive O2 Delivery Device Oxygen Flow Rate 3l Vent Mode Vent Rate Mechanical Rate PEEP Pressure Support Vent Sodium 145 Potassium 2.9 L* Chloride 109 H Carbon Dioxide 25 Anion Gap 11 BUN 23 H Creatinine 0.8 Creat Clearance w eGFR > 60 Random Glucose 239 H Calcium 6.8 L* Ionized Calcium Phosphorus 2.1 L Magnesium 1.9 Total Bilirubin 1.2 H D AST 28 ALT 32 Alkaline Phosphatase 140 H Total Protein 3.9 L Albumin 1.5 L Gentamicin Trough 04/24/17 04/24/17 04/25/17 12:55 19:45 05:10 WBC 7.5 RBC 4.73 Hgb 13.0 Hct 41.4 MCV 87.4 MCH 27.5 MCHC 31.4 L RDW 18.2 H Plt Count 139 MPV 9.1 Neutrophils % 92.0 H Lymphocytes % 3.4 L D Monocytes % 3.0 L Eosinophils % 1.5 D Basophils % 0.1 PT with INR INR Anticoagulation Therapy No Result Required. Puncture Site Right radial ABG pH 7.45 ABG pCO2 at Pt Temp 33.3 L D ABG pO2 at Pt Temp 142.0 H D ABG HCO3 22.5 ABG O2 Sat (Measured) 99.1 H ABG O2 Content 17.7 ABG Base Excess -0.5 José Miguel Test Positive O2 Delivery Device No Result Required. Oxygen Flow Rate No Result Required. Vent Mode A/c Vent Rate No Result Required. Mechanical Rate No Result Required. PEEP 5.0 Pressure Support Vent No Result Required. Sodium Potassium Chloride Carbon Dioxide Anion Gap BUN Creatinine Creat Clearance w eGFR Random Glucose Calcium Ionized Calcium Phosphorus Magnesium Total Bilirubin AST ALT Alkaline Phosphatase Total Protein Albumin Gentamicin Trough 0.8 04/25/17 05:45 WBC RBC Hgb Hct MCV MCH MCHC RDW Plt Count MPV Neutrophils % Lymphocytes % Monocytes % Eosinophils % Basophils % PT with INR INR Anticoagulation Therapy Puncture Site Right radial ABG pH 7.45 ABG pCO2 at Pt Temp 33.8 L ABG pO2 at Pt Temp 168.0 H* D ABG HCO3 23.4 ABG O2 Sat (Measured) 99.5 H ABG O2 Content 18.6 ABG Base Excess 0.4 José Miguel Test Positive O2 Delivery Device Mech vent Oxygen Flow Rate 50 Vent Mode A/c Vent Rate 12 Mechanical Rate PEEP 5.0 Pressure Support Vent 350 Sodium Potassium Chloride Carbon Dioxide Anion Gap BUN Creatinine Creat Clearance w eGFR Random Glucose Calcium Ionized Calcium Phosphorus Magnesium Total Bilirubin AST ALT Alkaline Phosphatase Total Protein Albumin Gentamicin Trough Active Medications Generic Name Dose Route Start Last Admin Trade Name Freq PRN Reason Stop Dose Admin Amiodarone HCl 400 mg 04/20/17 10:00 04/24/17 21:11 Cordarone - PO 400 mg BID SIMON Administration Ampicillin Sodium 2 gm/ Sodium 100 mls @ 200 mls/hr 04/22/17 12:00 04/25/17 01:10 Chloride IVPB 200 mls/hr Q4H-IV SIMON Administration Gentamicin Sulfate 30 mg/ 100.75 mls @ 100.75 mls/hr 04/22/17 12:00 04/25/17 01:01 Sodium Chloride IVPB 100.75 mls/hr Q8H-IV SIMON Administration Norepinephrine Bitartrate 8, 500 mls @ 5.61 mls/hr 04/23/17 14:00 04/24/17 19 :00 000 mcg/ Dextrose IV 0.29 mcg/kg/min ASDIR SIMON 56 mls/hr Protocol Titration 0.03 MCG/KG/MIN Propofol 1,000,000 mcg in 100 mls @ 1.546 mls/hr 04/24/17 18:00 04/25/17 01: 04 Diprivan - IVPB 20 mcg/kg/min TITR SIMON 6.183 mls/hr Protocol Titration 5 MCG/KG/MIN Levothyroxine Sodium 75 mcg 04/15/17 07:00 04/24/17 06:07 Synthroid - PO 75 mcg DAILY@0700 SIMON Administration Melatonin 5 mg 04/18/17 16:54 04/19/17 23:05 Melatonin PO 5 mg HS PRN Administration INSOMNIA Metoprolol Tartrate 100 mg 04/18/17 22:00 04/24/17 21:11 Lopressor - PO 100 mg BID SIMON Administration Saliva Substitute 1 applic 04/20/17 17:15 04/24/17 11:39 Mouthkote Solution - MM Not Given DAILY [facility] Microbiology 04/22/17 11:34 Blood - Peripheral Venous Blood Culture - Preliminary NO GROWTH OBTAINED AFTER 48 HOURS, INCUBATION TO CONTINUE FOR 3 DAYS. 04/22/17 11:29 Blood - Peripheral Venous Blood Culture - Preliminary NO GROWTH OBTAINED AFTER 48 HOURS, INCUBATION TO CONTINUE FOR 3 DAYS. 04/20/17 08:30 Blood - Peripheral Venous Blood Culture - Final Listeria Monocytogenes 04/20/17 09:15 Blood - Peripheral Venous Blood Culture - Preliminary Listeria Monocytogenes 04/22/17 16:45 Cerebral Spinal Fluid - Lumbar Puncture Gram Stain - Final 04/22/17 16:45 Cerebral Spinal Fluid - Lumbar Puncture CSF Culture - Preliminary 04/23/17 10:05 Urine For Antigen Detection Legionella Antigen - Final 04/23/17 10:05 Urine For Antigen Detection Streptococcus pneumoniae Antigen (M - Final 04/22/17 16:45 Cerebral Spinal Fluid - Lumbar Puncture Streptococcus pneumoniae Antigen (M - Final 04/18/17 08:00 Blood - Peripheral Venous Blood Culture - Final NO GROWTH AFTER 5 DAYS INCUBATION 04/18/17 08:00 Blood - Peripheral Venous Blood Culture - Final NO GROWTH AFTER 5 DAYS INCUBATION 04/20/17 11:05 Urine - Urine - Catheterized Urine Culture - Final NO GROWTH OBTAINED 04/20/17 07:55 Nasopharyngeal Swab Influenza Types A,B Antigen (SÁNCHEZ) - Final 04/20/17 07:55 Nasopharyngeal Swab - Final 04/15/17 04:30 Nasopharyngeal Swab Influenza Types A,B Antigen (SÁNCHEZ) - Final 04/15/17 04:30 Nasopharyngeal Swab - Final Prior echo in 2016 -> pulm htn, severe TR, EF ~67%, dilated atria Echo 02/10 - LVEF reduced in setting of afib with RVR, moderate MR, moderate TR , RV pressure 40-50, LAE Persantine stress test 02/14 - relatively unremarkable with minimal ischemic changes. EKG 04/14 - Afib w/ RVR, no ST changes, TWI in lateral leads, Rate 164 CXR 04/14 - Cardiomegaly, mild congestion, BL pleural effusions ABdominal U/S 04/16 - R pleural effusion; fatty infiltrates of liver; atrophic kidneys with no evidence of hydronephrosis EKG 04/17 - Afib w/ RVR. rate 110, NAD, QTC 446 CXR 04/18 - no change CT head 04/19 - no acute bleed or mass effect; mild atropy EKG 04/19 - Afib/flutter, rate of 106, NAD, QTC 470, no TW changes CXR 04/20 - Right pleural effusion with compressive atelectasis. Elevated left diaphragm. Questionable left pleural effusion. No pneumothorax is seen CXR 04/21 - Since the prior study of 04/20/2017, the feeding tube is been inserted and the tip is in the left upper quadrant/stomach. The patient is rotated to the right. There is a large heart, unfolded aorta and some bibasilar changes. Correlation recommended. CXR 04/22 - Since prior study of 04/21/2017, the feeding tube remains in place. There appears to be a progressive left infiltrate with fluid and/or atelectasis. There is a large heart with sclerotic knob. Correlation recommended. Ab/pelvis CT 04/21 - Impression: 1. Circumferentially prominent wall in the ascending colon and hepatic flexure may be attributed to underdistention or an infectious versus inflammatory colitis. Please correlate clinically. 2. Gastric tube in proper position. No bowel obstruction. No evidence of diverticulitis. 3. Cholelithiasis and/or sludge within the gallbladder. Moderate distention of the gallbladder may be physiologic and/or secondary to dyskinesia. Gallbladder wall thickening is nonspecific and may be secondary to right heart failure, cholecystitis and/or adjacent right upper quadrant inflammatory processes. Please correlate clinically and with right upper quadrant sonogram. 4. Extensive anasarca/body wall edema. Diffuse mesenteric haziness, confluent presacral fluid and free fluid within the pelvis may be secondary to heart failure. Please correlate clinically. 5. An approximately 3.6 x 2.7 cm indeterminant left adrenal gland mass is nonspecific with a broad differential including benign and malignant lesions. 6. Multichamber cardiomegaly with predominant enlargement of the right atrium. Please correlate with echocardiogram. 7. Incompletely imaged layering pleural effusions with airspace opacities in both lung bases. Please correlate with dedicated imaging of the chest. 8. T12 and L4 compression deformities as described above are of indeterminant chronicity. CXR 2/5 - Impression: NG tube above the diaphragm and needs to be advanced. Other tubes and lines in place. Left perihilar infiltration and left retrocardiac opacity. CXR 2/5 PM - Impression: NG tube above the diaphragm and needs to be advanced. Other tubes and lines in place. Left perihilar infiltration and left retrocardiac opacity. CXR 2/6 - Impression: Increase in bibasilar opacities and left effusion. Continuing clinical and radiographic evaluation suggested. 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 Pt critically ill with MOD, severe menigitis and poor reserve. Currently sedated, intubated. Prognosis very poor given multiple underlying comorbities. 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 Xanthochromic, PCR presumptively positive for Strep pneumo antigen. Pt recently offered Prevnar vaccine as inpt, however documented that pt refused. 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; Gram stain negative for organisms - F/u remaining CSF panel -> cell count, culture, AFB, toxo igg, pending bacterial PCRs - Day 4 high dose Amp/gent for suspected listeria meningitis; Vanc/cetriaxone d/ c'ed as unlikely strep pneumo - ID consult, recs appreciated - Strep pneumo, legionella urine ag negative - trend WBC, fever - UA negative - Intubated, sedation on propofol; Last ABG 7.45/34/168/23 - flu negative - On levo gtt; pt BP stable overnight; gtt decreased from 15mcg to 12mcg overnight by nursing - Gentamycin trough 0.8 today; acceptable #acute on chronic systolic CHF - CT abdomen with diffuse anasarca 2/2; - Pt with very poor peripheral perfusion of extremities; pulses weak in all 4 extremities; consider inotropic agent, however will defer to cardiology recs due to risk of arrhythmias with dobutamine/milrinone - daily weights, I&O's - Metoprolol 100mg BID; held in setting of hypotension - Consider lasix, as CXR with worsening congestion, however BP tenuous; remains on pressor support - If pt decompensates clinically, start on [employer] gtt for inotropic support #Afib with RVR, HR in up to 160s today - INR 1.09 today -c/w Amiodarone 400mg PO TID and Metoprolol 100mg PO BID -AC held in setting of elevated INR, sepsis; per cardiology hold off on AC for now - Plan for coumadin/heparin bridging vs. xarelto per cardiology for AC after sepsis resolves - Consider restarting AC; will defer to cardiology recs however #Transaminitis - LFTs normalized, T bili 1.2 -> 1.1 today - Alk phos uptrending, possibly secondary to biliary stasis from rocephin - Trend LFTs #Hypophosphatemia- 1.2 today - Repleted this AM; f/u PM phos - Trend #Hypokalemia - 3.7 today; resolved - trend K; replete as needed - Daily BMPs #SELMA- resolved, cr -> 0.8 today - Trend Cr - Daily BMPs #HTN -currently hypotensive -hold BP meds #supratherapeutic INR, Abd U/S wnl - INR normalized -Hold AC in setting of sepsis, elevated INR; INR 1.09 today; - No change in management per cardiology recommendations #hypothyroidism - c/w Synthroid 75 mcg qd #DVT PPX Xarelto when sepsis resolves #FEN: Gentle hydration as volume status tenuous Daily BMP NG feeds when stable Full code Dispo to ICU for further management. Prognosis remains poor. Will require family meeting to discuss GOC Plan d/w attending, Dr. Leeroy Steele, PGY1 Visit type - Emergency Visit Emergency Visit: Yes ED Registration Date: 04/14/17 Care time: The patient presented to the Emergency Department on the above date and was hospitalized for further evaluation of their emergent condition. - New Patient This patient is new to me today: No - Critical Care Critical Care patient: No
[2017-04-25] MEDS: LEVOTHYROXINE NA 75 MCG TABLET (FP) PO SCH (06:38)
[2017-04-25 06:55] LABS: CALCIUM 6.4 mg/dL (8.5-10.1)
--- NOTE | 2017-04-25 08:35 | PN ---
Physical Exam: SUBJECTIVE: Patient seen and examined The patient is an 86 year old female with a history of CAD w/ stents, afib on xarelto, HFpEF (EF 67.8%, 2016) and HLD who initially presented to the hospital for afib with RVR now transferred to the ICU for hypotension, fevers, and listeria sepsis. The patient has continued to require pressors overnight. Otherwise no acute events overnight. OBJECTIVE: Vital Signs Period Temp Pulse Resp BP Sys/Gandara Pulse Ox Last 24 Hr 98.1 F-100.9 F 95-149 12-27 86-114/61-98 98-100 GENERAL: The patient is intubated and sedated in no acute distress. HEAD: Normal with no signs of trauma. EYES: sclera anicteric, conjunctiva clear. No ptosis. ENT: oropharynx clear without exudates, moist mucous membranes. NECK: Trachea midline, full range of motion, supple. LUNGS: Breath sounds equal, clear to auscultation bilaterally, no wheezes, no crackles, no accessory muscle use. HEART: Tachycardic and irregular rhythm, S1, S2 without murmur, rub or gallop. ABDOMEN: Soft, nontender, nondistended, normoactive bowel sounds, no guarding, no rebound, no hepatosplenomegaly, no masses. EXTREMITIES: 2+ pulses, warm, well-perfused, NEUROLOGICAL: gait not observed. PSYCH: Intubated and sedated. SKIN: Warm, dry, normal turgor, no rashes or lesions noted Laboratory Results - last 24 hr 04/23/17 04/23/17 04/24/17 05:15 16:40 12:55 WBC RBC Hgb Hct MCV MCH MCHC RDW Plt Count MPV Neutrophils % Lymphocytes % Monocytes % Eosinophils % Basophils % Anticoagulation Therapy No Result Required. Puncture Site Right radial ABG pH 7.45 ABG pCO2 at Pt Temp 33.3 L D ABG pO2 at Pt Temp 142.0 H D ABG HCO3 22.5 ABG O2 Sat (Measured) 99.1 H ABG O2 Content 17.7 ABG Base Excess -0.5 José Miguel Test Positive Positive O2 Delivery Device No Result Required. Oxygen Flow Rate No Result Required. Vent Mode A/c Vent Rate No Result Required. Mechanical Rate No Result Required. PEEP 5.0 Pressure Support Vent No Result Required. Sodium Potassium Chloride Carbon Dioxide Anion Gap BUN Creatinine Creat Clearance w eGFR Random Glucose Calcium Ionized Calcium 5.3 Phosphorus Magnesium Total Bilirubin AST ALT Alkaline Phosphatase Total Protein Albumin Gentamicin Trough 04/24/17 04/25/17 04/25/17 19:45 05:10 05:10 WBC 7.5 RBC 4.73 Hgb 13.0 Hct 41.4 MCV 87.4 MCH 27.5 MCHC 31.4 L RDW 18.2 H Plt Count 139 MPV 9.1 Neutrophils % 92.0 H Lymphocytes % 3.4 L D Monocytes % 3.0 L Eosinophils % 1.5 D Basophils % 0.1 Anticoagulation Therapy Puncture Site ABG pH ABG pCO2 at Pt Temp ABG pO2 at Pt Temp ABG HCO3 ABG O2 Sat (Measured) ABG O2 Content ABG Base Excess José Miguel Test O2 Delivery Device Oxygen Flow Rate Vent Mode Vent Rate Mechanical Rate PEEP Pressure Support Vent Sodium 140 Potassium 3.7 Chloride 107 Carbon Dioxide 26 Anion Gap 7 L BUN 15 Creatinine 0.6 Creat Clearance w eGFR > 60 Random Glucose 232 H Calcium 6.4 L* Ionized Calcium Phosphorus 1.2 L Magnesium 1.6 L Total Bilirubin 1.1 H AST 17 ALT 27 Alkaline Phosphatase 115 Total Protein 3.9 L Albumin 1.4 L Gentamicin Trough 0.8 04/25/17 05:45 WBC RBC Hgb Hct MCV MCH MCHC RDW Plt Count MPV Neutrophils % Lymphocytes % Monocytes % Eosinophils % Basophils % Anticoagulation Therapy Puncture Site Right radial ABG pH 7.45 ABG pCO2 at Pt Temp 33.8 L ABG pO2 at Pt Temp 168.0 H* D ABG HCO3 23.4 ABG O2 Sat (Measured) 99.5 H ABG O2 Content 18.6 ABG Base Excess 0.4 José Miguel Test Positive O2 Delivery Device Mech vent Oxygen Flow Rate 50 Vent Mode A/c Vent Rate 12 Mechanical Rate PEEP 5.0 Pressure Support Vent 350 Sodium Potassium Chloride Carbon Dioxide Anion Gap BUN Creatinine Creat Clearance w eGFR Random Glucose Calcium Ionized Calcium Phosphorus Magnesium Total Bilirubin AST ALT Alkaline Phosphatase Total Protein Albumin Gentamicin Trough Active Medications Generic Name Dose Route Start Last Admin Trade Name Freq PRN Reason Stop Dose Admin Amiodarone HCl 400 mg 04/20/17 10:00 04/24/17 21:11 Cordarone - PO 400 mg BID SIMON Administration Ampicillin Sodium 2 gm/ Sodium 100 mls @ 200 mls/hr 04/22/17 12:00 04/25/17 06:38 Chloride IVPB 200 mls/hr Q4H-IV SIMON Administration Gentamicin Sulfate 30 mg/ 100.75 mls @ 100.75 mls/hr 04/22/17 12:00 04/25/17 01:01 Sodium Chloride IVPB 100.75 mls/hr Q8H-IV SIMON Administration Norepinephrine Bitartrate 8, 500 mls @ 5.61 mls/hr 04/23/17 14:00 04/25/17 06 :38 000 mcg/ Dextrose IV 0.24 mcg/kg/min ASDIR SIMON 45 mls/hr Protocol Titration 0.03 MCG/KG/MIN Propofol 1,000,000 mcg in 100 mls @ 1.546 mls/hr 04/24/17 18:00 04/25/17 06: 39 Diprivan - IVPB 20 mcg/kg/min TITR SIMON 6.183 mls/hr Protocol Titration 5 MCG/KG/MIN Potassium Phosphate 15 mm/ 255 mls @ 62.5 mls/hr 04/25/17 07:25 Dextrose IVPB 04/25/17 11:29 ONCE ONE Levothyroxine Sodium 75 mcg 04/15/17 07:00 04/25/17 06:38 Synthroid - PO 75 mcg DAILY@0700 SIMON Administration Magnesium Oxide 800 mg 04/25/17 07:25 Mag-Ox - PO 04/25/17 07:26 ONCE ONE Magnesium Sulfate 2 gm 04/25/17 07:25 Magnesium Sulfate IVPB 04/25/17 07:26 ONCE ONE Melatonin 5 mg 04/18/17 16:54 04/19/17 23:05 Melatonin PO 5 mg HS PRN Administration INSOMNIA Metoprolol Tartrate 100 mg 04/18/17 22:00 04/24/17 21:11 Lopressor - PO 100 mg BID SIMON Administration Saliva Substitute 1 applic 04/20/17 17:15 04/24/17 11:39 Mouthkote Solution - MM Not Given DAILY SIMON ASSESSMENT/PLAN: The patient is an 86 year old female with a history of CAD w/ stents, afib on xarelto, HFpEF (EF 67.8%, 2016) and HLD who initially presented to the hospital for afib with RVR now transferred to the ICU for hypotension, fevers, and listeria sepsis. NEURO Patient is intubated. -Sedated with propofol. -Will continue to monitor. CV #Hypotension Patient noted to be hypotensive over the weekend and started on pressors. -Continue levophed and titrate as needed to maintain MAP >65. -Will continue to monitor. #Afib with RVR Patient initially presented with a hr of 160 now rate controlled to 100-110 on amiodarone. Patient on xarelto for anti-coagulation. Cardiology is following. -Continue amidarone per cardiology recs. -Will continue to monitor closely. -Appreciate cardiology recs. #CHF (EF 67.8%, 2016) Patient was initially being diuriesed, however due to the patient's hypotension , she is no longer on a dieretic agent. -Conservative fluid hydration at the moment. -Will obtain an echocardiogram to evaluate further. -Will continue to monitor closely. RESP #Respiratory distress Patient noted to have worsening respiratory distress over the weekend and was intubated 1 day ago. -Continue vent settings and ween down as tolerated. -Close monitoring of the patient's O2 saturation. -Will continue to monitor. GI #Elevated Liver Enzymes -Will continue to monitor and trend. Renal No issues currently -Will continue to monitor bun/creatinine. ID #Sepsis Patient noted to be febrile last week with hypotension concerning for sepsis or septic shock. Chest plain film demonstrates bilateral pleural effusions as well as findings concerning for a possible pneumonia. Possible sources of the patient's infection could be pneumonia vs. UTI. Blood cultures and urine cultures were sent. Blood cultures are growing gram positive bacilli. Lumbar puncture over the weekend was positive for strep pneumo in the CSF concerning for menigitis. We will also cover for listeria given the patient's clinical picture. Patient's urine is growing legionella. -Continue Ampicillin and Gentamycin for aggressive antibiotic coverage. -Continue to manage fever with tylenol. -Serial CXR. -Follow up on blood, CSF and urine cultures. -Will continue to monitor. -ID is follow and appreciate recs. MSK No issues currently FEN/GI -Replete electrolytes PRN, will monitor DISPO: Continue ICU level of care. Visit type - Emergency Visit Emergency Visit: No - New Patient This patient is new to me today: No - Critical Care Critical Care patient: Yes Total Critical Care Time (in minutes): 35 Critical Care Statement: The care of this patient involved high complexity decision making to prevent further life threatening deterioration of the patient 's condition and/or to evaluate & treat vital organ system(s) failure or risk of failure.
[2017-04-25] MEDS ORDERED: PT OWN MED DRAWER 7, Y5N ONE ×3 (08:36→13:32)
[2017-04-25] MEDS ORDERED: MAGNESIUM OXIDE 400 MG TABLET (FP) PO ONE (08:45)
[2017-04-25] MEDS ORDERED: POTASSIUM PHOSPHATE 15 MM in DEXTROSE 5%-WATER - 250 ML IVPB ONE (09:00)
[2017-04-25] MEDS ORDERED: MAGNESIUM SULF 50% (8.12 MEQ/2 ML-1 GM VIAL) IVPB ONE (09:00)
[2017-04-25] MEDS: AMIODARONE HCL 200 MG TABLET (FP) PO SCH ×2 (09:02→22:01)
--- NOTE | 2017-04-25 09:02 | PN ---
Progress Note (short form) - Note Progress Note: sedated and intubated remains on pressors and propofol ross, IJ no diarrhea Vital Signs Period Temp Pulse Resp BP Sys/Gandara Pulse Ox Last 24 Hr 98.1 F-100.9 F 95-149 12-27 86-114/61-98 98-100 cvp site no erythema no nuchal rigidity cor-rrr lungs decreased bs at bases abd soft,nt ext pretibial edema cyanotic feet +anasarca CBC, BMP 04/25/17 05:10 04/25/17 05:10 albumin 1.4 Microbiology 04/22/17 11:34 Blood - Peripheral Venous Blood Culture - Preliminary NO GROWTH OBTAINED AFTER 48 HOURS, INCUBATION TO CONTINUE FOR 3 DAYS. 04/22/17 11:29 Blood - Peripheral Venous Blood Culture - Preliminary NO GROWTH OBTAINED AFTER 48 HOURS, INCUBATION TO CONTINUE FOR 3 DAYS. 04/20/17 08:30 Blood - Peripheral Venous Blood Culture - Final Listeria Monocytogenes 04/20/17 09:15 Blood - Peripheral Venous Blood Culture - Preliminary Listeria Monocytogenes 04/22/17 16:45 Cerebral Spinal Fluid - Lumbar Puncture Gram Stain - Final 04/22/17 16:45 Cerebral Spinal Fluid - Lumbar Puncture CSF Culture - Preliminary 04/23/17 10:05 Urine For Antigen Detection Legionella Antigen - Final 04/23/17 10:05 Urine For Antigen Detection Streptococcus pneumoniae Antigen (M - Final 04/22/17 16:45 Cerebral Spinal Fluid - Lumbar Puncture Streptococcus pneumoniae Antigen (M - Final 04/18/17 08:00 Blood - Peripheral Venous Blood Culture - Final NO GROWTH AFTER 5 DAYS INCUBATION 04/18/17 08:00 Blood - Peripheral Venous Blood Culture - Final NO GROWTH AFTER 5 DAYS INCUBATION 04/20/17 11:05 Urine - Urine - Catheterized Urine Culture - Final NO GROWTH OBTAINED 04/20/17 07:55 Nasopharyngeal Swab Influenza Types A,B Antigen (SÁNCHEZ) - Final 04/20/17 07:55 Nasopharyngeal Swab - Final 04/15/17 04:30 Nasopharyngeal Swab Influenza Types A,B Antigen (SÁNCHEZ) - Final 04/15/17 04:30 Nasopharyngeal Swab - Final cxray- increased effusions, congestion Current Medications Amiodarone HCl (Cordarone -) 400 mg PO BID SIMON Last Admin: 04/24/17 21:11 Dose: 400 mg Ampicillin Sodium 2 gm/ Sodium (Chloride) 100 mls @ 200 mls/hr IVPB Q4H-IV SIMON Last Admin: 04/25/17 06:38 Dose: 200 mls/hr Gentamicin Sulfate 30 mg/ (Sodium Chloride) 100.75 mls @ 100.75 mls/hr IVPB Q8H -IV SIMON Last Admin: 04/25/17 01:01 Dose: 100.75 mls/hr Norepinephrine Bitartrate 8, (000 mcg/ Dextrose) 500 mls @ 5.61 mls/hr IV ASDIR SIMON; 0.03 MCG/KG/MIN PRN Reason: Protocol Last Titration: 04/25/17 06:38 Dose: 0.24 mcg/kg/min, 45 mls/hr Propofol (Diprivan -) 1,000,000 mcg in 100 mls @ 1.546 mls/hr IVPB TITR SIMON; 5 MCG/KG/MIN PRN Reason: Protocol Last Titration: 04/25/17 06:39 Dose: 20 mcg/kg/min, 6.183 mls/hr Potassium Phosphate 15 mm/ (Dextrose) 255 mls @ 63.75 mls/hr IVPB ONCE ONE PRN Reason: 15 MM/4 HR Stop: 04/25/17 12:59 Levothyroxine Sodium (Synthroid -) 75 mcg PO DAILY@0700 [facility] Last Admin: 04/25/17 06:38 Dose: 75 mcg Magnesium Sulfate (Magnesium Sulfate) 2 gm IVPB ONCE ONE Stop: 04/25/17 09:01 Melatonin (Melatonin) 5 mg PO HS PRN PRN Reason: INSOMNIA Last Admin: 04/19/17 23:05 Dose: 5 mg Metoprolol Tartrate (Lopressor -) 100 mg PO BID [facility] Last Admin: 04/24/17 21:11 Dose: 100 mg Saliva Substitute (Mouthkote Solution -) 1 applic MM DAILY SIMON Last Admin: 04/24/17 11:39 Dose: Not Given a/p chart reviewed d/w Dr Ruelas listeria sepsis- bacteremia with meningitis to continue amp/gentamicin gent trough acceptable intermittent fevers reculture will f/u CSF antigens history of afib pulmonary HTN overall prognosis is poor
[2017-04-25] MEDS: METOPROLOL TARTRATE 50 MG TABLET (FP) PO SCH ×2 (09:03→22:01)
[2017-04-25] MEDS: LYTES/YERBA SANTA 240 ML BOTTLE MM SCH (09:03)
--- NOTE | 2017-04-25 09:30 | PN ---
Progress Note, Physician Chief Complaint: Pt is intubated; reportedly agitated when off sedation. History of Present Illness: Patient is an 86 year old female with a significant past medical history of CAD w/ stents, afib on xarelto, HFpEF (EF 67.8%, 2016) and HLD who presents to the ED for tachycardia. Patient was seen in cardiology clinic today and was found on EKG to be in afib with RVR with a rate of 160. She was subsequently sent to ER for management. Patient currently has no complaints or pain while in the ED. Denies ever having CP/SOB/palpitations. Denies F/C/N/V/D. Reports compliance with all of her medications. Allergies: None Social history: Lives with daughter. No smoking. No alcohol. No illicit drugs. Surgical history: None PMD: Dr Parrish. Training Development Director: Dr. Andino " - Current Medication List Current Medications: Active Medications Amiodarone HCl (Cordarone -) 400 mg PO BID SIMON Last Admin: 04/25/17 09:02 Dose: 400 mg Ampicillin Sodium 2 gm/ Sodium (Chloride) 100 mls @ 200 mls/hr IVPB Q4H-IV SIMON Last Admin: 04/25/17 09:02 Dose: 200 mls/hr Gentamicin Sulfate 30 mg/ (Sodium Chloride) 100.75 mls @ 100.75 mls/hr IVPB Q8H -IV SIMON Last Admin: 04/25/17 01:01 Dose: 100.75 mls/hr Norepinephrine Bitartrate 8, (000 mcg/ Dextrose) 500 mls @ 5.61 mls/hr IV ASDIR SIMON; 0.03 MCG/KG/MIN PRN Reason: Protocol Last Titration: 04/25/17 06:38 Dose: 0.24 mcg/kg/min, 45 mls/hr Propofol (Diprivan -) 1,000,000 mcg in 100 mls @ 1.546 mls/hr IVPB TITR SIMON; 5 MCG/KG/MIN PRN Reason: Protocol Last Titration: 04/25/17 06:39 Dose: 20 mcg/kg/min, 6.183 mls/hr Potassium Phosphate 15 mm/ (Dextrose) 255 mls @ 63.75 mls/hr IVPB ONCE ONE PRN Reason: 15 MM/4 HR Stop: 04/25/17 12:59 Levothyroxine Sodium (Synthroid -) 75 mcg PO DAILY@0700 [facility] Last Admin: 04/25/17 06:38 Dose: 75 mcg Melatonin (Melatonin) 5 mg PO HS PRN PRN Reason: INSOMNIA Last Admin: 04/19/17 23:05 Dose: 5 mg Metoprolol Tartrate (Lopressor -) 100 mg PO BID [facility] Last Admin: 04/25/17 09:03 Dose: Not Given Saliva Substitute (Mouthkote Solution -) 1 applic MM DAILY [facility] Last Admin: 04/25/17 09:03 Dose: 1 applic - Objective Vital Signs: Vital Signs Temperature 99.1 F 04/25/17 07:30 Pulse Rate 96 H 04/25/17 07:30 Respiratory Rate 18 04/25/17 08:00 Blood Pressure 114/82 04/25/17 07:30 O2 Sat by Pulse Oximetry (%) 100 04/25/17 08:00 Constitutional: Yes: Thin Eyes: Yes: WNL Cardiovascular: Yes: Tachycardia, Pulse Irregular Respiratory: Yes: Diminished, SOB Gastrointestinal: Yes: Soft Genitourinary: Yes: Judge Present. No: Anuria Musculoskeletal: Yes: Muscle Weakness Extremities: Yes: Cool Edema: No Peripheral Pulses WNL: No Peripheral Pulses: Left Doralis Pedis: 1+, Right Dorsalis Pedis: 1+ Neurological: Yes: Unresponsive Labs: CBC, BMP 04/25/17 05:10 04/25/17 05:10 INR, PTT INR 1.09 (0.82-1.09) 04/24/17 05:15 Fibrinogen 252.0 mg/dL (238-498) 04/23/17 05:15 Problem List - Problems (1) Atrial fibrillation with RVR Assessment/Plan: . replete Mg and PO4. Continue metoprolol and amiodarone. F/u ECHO for LVEF. Code(s): I48.91 - UNSPECIFIED ATRIAL FIBRILLATION (2) Acute on chronic systolic and diastolic heart failure, NYHA class 2 Assessment/Plan: On amiodarone and metoprolol. Problematic giving other agents (e.g. ACEI, RAAS, hydralazine + isordil) at the present time due to renal insufficiency and relative hypotension. ECHO: f/u repeat for LVEF. F/u CXR today showed no significant change from initial CXR (infiltrate, pleural effusion) F/u BUn/Cr, electrolytes, Is and Os, daily weight. Code(s): I50.43 - ACUTE ON CHRONIC COMBINED SYSTOLIC AND DIASTOLIC HRT FAIL (3) CAD (coronary artery disease) Code(s): I25.10 - ATHSCL HEART DISEASE OF UTE CORONARY ARTERY W/O ANG PCTRS (4) Hypothyroid Assessment/Plan: elevated TSH; free T4 is also mildly elevated. Following thryoid function is especially important when on amiodarone. Code(s): E03.9 - HYPOTHYROIDISM, UNSPECIFIED (5) Renal insufficiency Assessment/Plan: f/u carefully (on furosemide for acute CHF); avoid excessive dehydration. Code(s): N28.9 - DISORDER OF KIDNEY AND URETER, UNSPECIFIED (6) Acute respiratory failure Assessment/Plan: on antibiotics for septic shock. 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 Antibiotics per ID. Fluids; monitor Is and Os, daily weight, BUN?cr, electrolytes. On norepinehprine; if LVEF is severely reduced, (and pt known to have significant MR) consider dobuamine.for attemt to improve cardiac output. Code(s): A41.9 - SEPSIS, UNSPECIFIED ORGANISM; R65.21 - SEVERE SEPSIS WITH SEPTIC SHOCK (8) CHF (congestive heart failure) Assessment/Plan: on metoprolol and amiodarone. Furosemide held (sepsis; hypotension). On norepinephrine IV for pressure support; may require dobutamine. (F/u repeat ECHO for LVEF, mitral valve status).. F/u Is and Os. Code(s): I50.9 - HEART FAILURE, UNSPECIFIED
[2017-04-25] MEDS ORDERED: ACETAMINOPHEN 1000 MG/100 ML VIAL (NON FORMULARY) IVPB ONE (11:02)
--- NOTE | 2017-04-25 11:20 | PN ---
Teaching Attending Note Name of Resident: Chester Zavala ATTENDING PHYSICIAN STATEMENT I saw and evaluated the patient. I reviewed the resident's note and discussed the case with the resident. I agree with the resident's findings and plan as documented. SUBJECTIVE: Patient seen and examined in the ICU. Remains intubated and sedated. AC Mode of vent, 70% FiO2. 12 mcq NE for hemodynamic support. ECHO revealed severe LV dysfunction with an EF+ 20to25% / severe LV global hypokinesis / severe PAH. CXR: worsening bilateral airspace disease Intake & Output 04/22/17 04/23/17 04/24/17 04/25/17 23:59 23:59 23:59 23:59 Intake Total 960 1789 2330 1650.4 Output Total 1100 900 100 Balance 038 354 5451 1550.4 Weight 111 lb 1.6 oz 110 lb 1.6 oz 113 lb 9.6 oz 124 lb Last Vital Signs Temp Pulse Resp BP Pulse Ox 98 F 96 H 16 100/76 99 04/25/17 11:00 04/25/17 11:00 04/25/17 11:00 04/25/17 11:00 04/25/17 10:00 Active Medications Amiodarone HCl (Cordarone -) 400 mg PO BID SIMON Last Admin: 04/25/17 09:02 Dose: 400 mg Ampicillin Sodium 2 gm/ Sodium (Chloride) 100 mls @ 200 mls/hr IVPB Q4H-IV SIMON Last Admin: 04/25/17 09:02 Dose: 200 mls/hr Gentamicin Sulfate 30 mg/ (Sodium Chloride) 100.75 mls @ 100.75 mls/hr IVPB Q8H -IV SIMON Last Admin: 04/25/17 01:01 Dose: 100.75 mls/hr Norepinephrine Bitartrate 8, (000 mcg/ Dextrose) 500 mls @ 5.61 mls/hr IV ASDIR SIMON; 0.03 MCG/KG/MIN PRN Reason: Protocol Last Titration: 04/25/17 06:38 Dose: 0.24 mcg/kg/min, 45 mls/hr Propofol (Diprivan -) 1,000,000 mcg in 100 mls @ 1.546 mls/hr IVPB TITR SIMON; 5 MCG/KG/MIN PRN Reason: Protocol Last Titration: 04/25/17 06:39 Dose: 20 mcg/kg/min, 6.183 mls/hr Potassium Phosphate 15 mm/ (Dextrose) 255 mls @ 63.75 mls/hr IVPB ONCE ONE PRN Reason: 15 MM/4 HR Stop: 04/25/17 12:59 Last Admin: 04/25/17 09:45 Dose: 63.75 mls/hr Levothyroxine Sodium (Synthroid -) 75 mcg PO DAILY@0700 [facility] Last Admin: 04/25/17 06:38 Dose: 75 mcg Melatonin (Melatonin) 5 mg PO HS PRN PRN Reason: INSOMNIA Last Admin: 04/19/17 23:05 Dose: 5 mg Metoprolol Tartrate (Lopressor -) 100 mg PO BID [facility] Last Admin: 04/25/17 09:03 Dose: Not Given Saliva Substitute (Mouthkote Solution -) 1 applic MM DAILY [facility] Last Admin: 04/25/17 09:03 Dose: 1 applic Gen: Intubated and sedated on AC mode of vent Heart: tachycardic Lung: Bilateral rhonchi Abd: soft, nontender Ext: (+) edema, cool extremities Laboratory Results - last 24 hr 04/23/17 04/23/17 04/24/17 05:15 16:40 12:55 WBC RBC Hgb Hct MCV MCH MCHC RDW Plt Count MPV Neutrophils % Lymphocytes % Monocytes % Eosinophils % Basophils % Anticoagulation Therapy No Result Required. Puncture Site Right radial ABG pH 7.45 ABG pCO2 at Pt Temp 33.3 L D ABG pO2 at Pt Temp 142.0 H D ABG HCO3 22.5 ABG O2 Sat (Measured) 99.1 H ABG O2 Content 17.7 ABG Base Excess -0.5 José Miguel Test Positive Positive O2 Delivery Device No Result Required. Oxygen Flow Rate No Result Required. Vent Mode A/c Vent Rate No Result Required. Mechanical Rate No Result Required. PEEP 5.0 Pressure Support Vent No Result Required. Sodium Potassium Chloride Carbon Dioxide Anion Gap BUN Creatinine Creat Clearance w eGFR Random Glucose Calcium Ionized Calcium 5.3 Phosphorus Magnesium Total Bilirubin AST ALT Alkaline Phosphatase Total Protein Albumin Gentamicin Trough 04/24/17 04/25/17 04/25/17 19:45 05:10 05:10 WBC 7.5 RBC 4.73 Hgb 13.0 Hct 41.4 MCV 87.4 MCH 27.5 MCHC 31.4 L RDW 18.2 H Plt Count 139 MPV 9.1 Neutrophils % 92.0 H Lymphocytes % 3.4 L D Monocytes % 3.0 L Eosinophils % 1.5 D Basophils % 0.1 Anticoagulation Therapy Puncture Site ABG pH ABG pCO2 at Pt Temp ABG pO2 at Pt Temp ABG HCO3 ABG O2 Sat (Measured) ABG O2 Content ABG Base Excess José Miguel Test O2 Delivery Device Oxygen Flow Rate Vent Mode Vent Rate Mechanical Rate PEEP Pressure Support Vent Sodium 140 Potassium 3.7 Chloride 107 Carbon Dioxide 26 Anion Gap 7 L BUN 15 Creatinine 0.6 Creat Clearance w eGFR > 60 Random Glucose 232 H Calcium 6.4 L* Ionized Calcium Phosphorus 1.2 L Magnesium 1.6 L Total Bilirubin 1.1 H AST 17 ALT 27 Alkaline Phosphatase 115 Total Protein 3.9 L Albumin 1.4 L Gentamicin Trough 0.8 04/25/17 05:45 WBC RBC Hgb Hct MCV MCH MCHC RDW Plt Count MPV Neutrophils % Lymphocytes % Monocytes % Eosinophils % Basophils % Anticoagulation Therapy Puncture Site Right radial ABG pH 7.45 ABG pCO2 at Pt Temp 33.8 L ABG pO2 at Pt Temp 168.0 H* D ABG HCO3 23.4 ABG O2 Sat (Measured) 99.5 H ABG O2 Content 18.6 ABG Base Excess 0.4 José Miguel Test Positive O2 Delivery Device Mech vent Oxygen Flow Rate 50 Vent Mode A/c Vent Rate 12 Mechanical Rate PEEP 5.0 Pressure Support Vent 350 Sodium Potassium Chloride Carbon Dioxide Anion Gap BUN Creatinine Creat Clearance w eGFR Random Glucose Calcium Ionized Calcium Phosphorus Magnesium Total Bilirubin AST ALT Alkaline Phosphatase Total Protein Albumin Gentamicin Trough IMP: Pneumococcal Meningitis Listeria Sepsis/Bacteremia Acute Hypoxic Respiratory Failure Acute Colitis Pneumonia Bacteremia Severe Sepsis Atrial Fibrillation with RVR Acute Kidney Injury improving Lactic Acidosis resolved Elevated LFTs Acute on Chronic Diastolic Heart Failure Coagulopathy Hypothyroidism - continue antibiotics per ID - AC mode of vent, wean FiO2 - Titrate pressors to maintain MAP - ECHO : may benefit from Inotropes: to discuss with Cardiology - monitor urine output, creatinine - rate control - AC - replete lytes - O2 to keep SpO2 >90% - continue ICU monitoring - Eneteral feeds - guarded prognosis Dr Laguna Critical care time spent in reviewing chart, evaluating patient and formulating plan 35 min
--- NOTE | 2017-04-25 12:37 | PN ---
Teaching Attending Note Name of Resident: Luisito Steele ATTENDING PHYSICIAN STATEMENT I saw and evaluated the patient. I reviewed the resident's note and discussed the case with the resident. I agree with the resident's findings and plan as documented. SUBJECTIVE:intubated/sedated OBJECTIVE: Last Vital Signs Temp Pulse Resp BP Pulse Ox 98.0 F 97 H 16 122/86 99 04/25/17 11:37 04/25/17 11:37 04/25/17 11:37 04/25/17 11:37 04/25/17 10:00 Intake & Output 04/22/17 04/23/17 04/24/17 04/25/17 23:59 23:59 23:59 23:59 Intake Total 960 1789 2330 1650.4 Output Total 1100 900 100 Balance 023 003 2320 1550.4 Weight 111 lb 1.6 oz 110 lb 1.6 oz 113 lb 9.6 oz 124 lb General sedated HEENT some blood streaked sputum on suctioning CV S1 S2 irregular irregular Lungs Coarse breath sounds Abdomen soft NT/ND Extremities + B/L pitting edema ASSESSMENT AND PLAN: 86yo F with PMH AFib on xarelto, CAD s/p stents, hypothyroid, Systolic CHF, dyslipidemia sent to the ER by her easter bunny for afib with RVR . 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 will re-send sepsis workup. on pressors. Levo 12mcg. on Ampicillin/Gent day 3. received Ceftriaxone for questionable strep in the CSF Cx. will f/u official cx reports. check gent trough. ID on board 2. Acute hypoxic respiratory failure from septic shock and likely systolic HF exacerbation from volume resuscitation- on full vent support. titrate down setting as tolerated. vent management from ICU team. propofol for sedation. vacation sedations 3. Afib with RVR- overall improved. metoprolol on hold due to hypotension from septic shock. on amio. cardio on board. Xarelto on hold due to coagulopathy 4. Acute Systolic Heart failure exacerbation- unable to diuresis in setting of septic shock. continues to be volume overloaded. unable to give lasix. will need to speak with cardio about ionotropic support to assist. 5. Coagulopathy, elevated INR, suspect from hepatic congestion/amiodarone- resolved 6. Acute transaminitis-likely congestive hepatopathy. now resolved 7. Hypothyoridism 8. SELMA, prerenal likely from CKD on her CKD (from poor EF)- resolved 9. Hypokalemia- resolved 10. Pseduohypocalcemia- Corrected CA 8.5 11. Severe hypophosphatemia- Kphos IV 12. DVT ppx- heparin sq on hold due to coagulopathy. if INR remains stable will consider starting hep sq. 13. Poor overall prognosis. will need to speak with HCP for goals of care. total critical care time spent 40 min.
[2017-04-25] MEDS ORDERED: BENZOIN/ALOE VERA/STORAX/TOLU 58 ML BOTTLE ONE (16:50)
[2017-04-25] MEDS ORDERED: NOREPINEPHRINE BITARTRATE 4 MG/4 ML ML IV ONE (20:14)
[2017-04-25] MEDS: PROPOFOL 1,000,000 MCG/100 ML VIAL IVPB SCH (22:01)
[2017-04-26] MEDS: AMPICILLIN - 2 GM in SODIUM CHLORIDE 100 ML IVPB SCH ×6 (02:30→21:22)
[2017-04-26] MEDS: SODIUM CHLORIDE IVPB SCH ×2 (03:07→09:48)
[2017-04-26] MEDS: GENTAMICIN IVPB SCH ×2 (03:07→09:48)
[2017-04-26 05:52] LABS: ARTERIAL BLOOD GAS BASE EXCESS 0.4 meq/l (-2-2); ARTERIAL BLOOD GAS PCO2 34.5 mmHg (35-45); ARTERIAL BLOOD GAS pH 7.45 (7.35-7.45)
[2017-04-26 06:12] LABS: ALLENS TEST POSITIVE
[2017-04-26 06:17] LABS: ARTERIAL BLD GAS O2 SATURATION 99.6 % (90-98.9)
[2017-04-26] MEDS: LEVOTHYROXINE NA 75 MCG TABLET (FP) PO SCH (06:22)
[2017-04-26] MEDS: PROPOFOL 1,000,000 MCG/100 ML VIAL IVPB SCH ×2 (06:22→18:40)
[2017-04-26] MEDS: NOREPINEPHRINE BITARTRATE 8,000 MCG in DEXTROSE 5%-WATER - 492 ML IV SCH (06:23)
--- NOTE | 2017-04-26 06:38 | PN ---
Physical Exam: SUBJECTIVE: Patient seen and examined by me this AM - AM ABG 7.45/34.5/179/23.5. Sedated, Vented. On feeds, rate of 40ml. Vent setting 12/350/70%/5. Levo titrated down from 12 to 10mcg overnight. BP 80-90s systolic overnight, no fevers, satting well on 70% FIO2. Still with poor perfusion peripherally. Will not start on SUPERVISOR SHEARING gtt yet, as arrhythmogenic. Plan to continue current abx regimen per ID. PM: - Discussed with critical care attending. Plan for VBG and starting inotropic support given reduced EF on ECHO and decreased UOP. OBJECTIVE: Vital Signs Intake & Output 04/23/17 04/24/17 04/25/17 04/26/17 23:59 23:59 23:59 23:59 Intake Total 1789 2330 3842.4 1570 Output Total 1100 900 300 150 Balance 689 1430 3542.4 1420 Weight 49.941 kg 51.528 kg 56.245 kg 58.105 kg Period Temp Pulse Resp BP Sys/Gandara Pulse Ox Last 24 Hr 97.2 F-103 F 81-115 14-27 86-122/66-96 96-100 GENERAL: Sedated, intubated. Nonresponsive to sternal rub. HEAD: NG tube in place. Normal with no signs of trauma. EYES: Pupils pinpoint, poorly reactive to light; sclera anicteric. No lid lag. EARS, NOSE, THROAT: Ears normal, nares patent. ETT tube at lip. Moist mucous membranes. NECK: No lymphadenopathy, or masses. LUNGS: BL coarse rales BL in all lung reyes, decreased breath sounds at both bases. Mechanical breath sounds in upper airway. No accessory muscle use. HEART: Irregularly Irregular, normal S1 and S2 without murmur, rub or gallop. ABDOMEN: Soft, nontender, not distended, normoactive bowel sounds, no guarding, no rebound, no masses. No hepatomegaly or splenomegaly. MUSCULOSKELETAL: Normal range of motion at all joints. No bony deformities or tenderness. No CVA tenderness. UPPER EXTREMITIES: 1+ radial pulses, cool to touch. No cyanosis. No clubbing. 1 + peripheral edema BL. LOWER EXTREMITIES: Still w/ trace pitting edema BL to knees. Pulses not palpable , very cool to touch. No calf tenderness. BL superficial varicose veins on anterior shins. NEUROLOGICAL: Nonverbal, sedated. Withdraws to pain, deep abdominal palpation. Brainstem reflexes intact. Negative Babinskis BL. SKIN: Warm, dry, normal turgor, no rashes or lesions noted, normal capillary refill. Laboratory Results - last 24 hr CBC, BMP 04/26/17 06:10 04/26/17 06:10 04/25/17 04/25/17 04/26/17 05:10 16:00 06:00 Puncture Site Right radial ABG pH 7.45 ABG pCO2 at Pt Temp 34.5 L ABG pO2 at Pt Temp 179.0 H* ABG HCO3 23.5 ABG O2 Sat (Measured) 99.6 H* ABG O2 Content 19.0 ABG Base Excess 0.4 José Miguel Test Positive O2 Delivery Device Mech vent Oxygen Flow Rate 70 Vent Mode A/c Vent Rate 12 PEEP 5.0 Pressure Support Vent 350 Sodium 140 Potassium 3.7 Chloride 107 Carbon Dioxide 26 Anion Gap 7 L BUN 15 Creatinine 0.6 Creat Clearance w eGFR > 60 Random Glucose 232 H Calcium 6.4 L* Phosphorus 1.2 L 2.4 L Magnesium 1.6 L Total Bilirubin 1.1 H AST 17 ALT 27 Alkaline Phosphatase 115 Total Protein 3.9 L Albumin 1.4 L Active Medications Generic Name Dose Route Start Last Admin Trade Name Freq PRN Reason Stop Dose Admin Amiodarone HCl 400 mg 04/20/17 10:00 04/25/17 22:01 Cordarone - PO 400 mg BID SIMON Administration Ampicillin Sodium 2 gm/ Sodium 100 mls @ 200 mls/hr 04/22/17 12:00 04/26/17 05:26 Chloride IVPB 200 mls/hr Q4H-IV SIMON Administration Gentamicin Sulfate 30 mg/ 100.75 mls @ 100.75 mls/hr 04/22/17 12:00 04/26/17 03:07 Sodium Chloride IVPB 100.75 mls/hr Q8H-IV SIMON Administration Norepinephrine Bitartrate 8, 500 mls @ 5.61 mls/hr 04/23/17 14:00 04/26/17 06 :23 000 mcg/ Dextrose IV 0.2 mcg/kg/min ASDIR SIMON 37.5 mls/hr Protocol Administration 0.03 MCG/KG/MIN Propofol 1,000,000 mcg in 100 mls @ 1.546 mls/hr 04/24/17 18:00 04/26/17 06: 22 Diprivan - IVPB 30 mcg/kg/min TITR SIMON 9.275 mls/hr Protocol Administration 5 MCG/KG/MIN Levothyroxine Sodium 75 mcg 04/15/17 07:00 04/26/17 06:22 Synthroid - PO 75 mcg DAILY@0700 SIMON Administration Melatonin 5 mg 04/18/17 16:54 04/19/17 23:05 Melatonin PO 5 mg HS PRN Administration INSOMNIA Metoprolol Tartrate 100 mg 04/18/17 22:00 04/25/17 22:01 Lopressor - PO 100 mg BID SIMON Administration Saliva Substitute 1 applic 04/20/17 17:15 04/25/17 09:03 Mouthkote Solution - MM 1 applic DAILY SIMON Administration Microbiology 04/22/17 16:45 Cerebral Spinal Fluid - Lumbar Puncture Gram Stain - Final 04/22/17 16:45 Cerebral Spinal Fluid - Lumbar Puncture CSF Culture - Final NO GROWTH AFTER 48 HOURS INCUBATION 04/22/17 11:34 Blood - Peripheral Venous Blood Culture - Preliminary NO GROWTH OBTAINED AFTER 72 HOURS, INCUBATION TO CONTINUE FOR 2 DAYS. 04/22/17 11:29 Blood - Peripheral Venous Blood Culture - Preliminary NO GROWTH OBTAINED AFTER 72 HOURS, INCUBATION TO CONTINUE FOR 2 DAYS. 04/20/17 08:30 Blood - Peripheral Venous Blood Culture - Final Listeria Monocytogenes 04/20/17 09:15 Blood - Peripheral Venous Blood Culture - Preliminary Listeria Monocytogenes 04/23/17 10:05 Urine For Antigen Detection Legionella Antigen - Final 04/23/17 10:05 Urine For Antigen Detection Streptococcus pneumoniae Antigen (M - Final 04/22/17 16:45 Cerebral Spinal Fluid - Lumbar Puncture Streptococcus pneumoniae Antigen (M - Final 04/18/17 08:00 Blood - Peripheral Venous Blood Culture - Final NO GROWTH AFTER 5 DAYS INCUBATION 04/18/17 08:00 Blood - Peripheral Venous Blood Culture - Final NO GROWTH AFTER 5 DAYS INCUBATION 04/20/17 11:05 Urine - Urine - Catheterized Urine Culture - Final NO GROWTH OBTAINED 04/20/17 07:55 Nasopharyngeal Swab Influenza Types A,B Antigen (SÁNCHEZ) - Final 04/20/17 07:55 Nasopharyngeal Swab - Final 04/15/17 04:30 Nasopharyngeal Swab Influenza Types A,B Antigen (SÁNCHEZ) - Final 04/15/17 04:30 Nasopharyngeal Swab - Final Prior echo in 2016 -> pulm htn, severe TR, EF ~67%, dilated atria Echo 02/10 - LVEF reduced in setting of afib with RVR, moderate MR, moderate TR , RV pressure 40-50, LAE Persantine stress test 02/14 - relatively unremarkable with minimal ischemic changes. EKG 04/14 - Afib w/ RVR, no ST changes, TWI in lateral leads, Rate 164 CXR 04/14 - Cardiomegaly, mild congestion, BL pleural effusions ABdominal U/S 04/16 - R pleural effusion; fatty infiltrates of liver; atrophic kidneys with no evidence of hydronephrosis EKG 04/17 - Afib w/ RVR. rate 110, NAD, QTC 446 CXR 04/18 - no change CT head 04/19 - no acute bleed or mass effect; mild atropy EKG 04/19 - Afib/flutter, rate of 106, NAD, QTC 470, no TW changes CXR 04/20 - Right pleural effusion with compressive atelectasis. Elevated left diaphragm. Questionable left pleural effusion. No pneumothorax is seen CXR 04/21 - Since the prior study of 04/20/2017, the feeding tube is been inserted and the tip is in the left upper quadrant/stomach. The patient is rotated to the right. There is a large heart, unfolded aorta and some bibasilar changes. Correlation recommended. CXR 04/22 - Since prior study of 04/21/2017, the feeding tube remains in place. There appears to be a progressive left infiltrate with fluid and/or atelectasis. There is a large heart with sclerotic knob. Correlation recommended. Ab/pelvis CT 04/21 - Impression: 1. Circumferentially prominent wall in the ascending colon and hepatic flexure may be attributed to underdistention or an infectious versus inflammatory colitis. Please correlate clinically. 2. Gastric tube in proper position. No bowel obstruction. No evidence of diverticulitis. 3. Cholelithiasis and/or sludge within the gallbladder. Moderate distention of the gallbladder may be physiologic and/or secondary to dyskinesia. Gallbladder wall thickening is nonspecific and may be secondary to right heart failure, cholecystitis and/or adjacent right upper quadrant inflammatory processes. Please correlate clinically and with right upper quadrant sonogram. 4. Extensive anasarca/body wall edema. Diffuse mesenteric haziness, confluent presacral fluid and free fluid within the pelvis may be secondary to heart failure. Please correlate clinically. 5. An approximately 3.6 x 2.7 cm indeterminant left adrenal gland mass is nonspecific with a broad differential including benign and malignant lesions. 6. Multichamber cardiomegaly with predominant enlargement of the right atrium. Please correlate with echocardiogram. 7. Incompletely imaged layering pleural effusions with airspace opacities in both lung bases. Please correlate with dedicated imaging of the chest. 8. T12 and L4 compression deformities as described above are of indeterminant chronicity. CXR 2/5 - Impression: NG tube above the diaphragm and needs to be advanced. Other tubes and lines in place. Left perihilar infiltration and left retrocardiac opacity. CXR 2/5 PM - Impression: NG tube above the diaphragm and needs to be advanced. Other tubes and lines in place. Left perihilar infiltration and left retrocardiac opacity. CXR 2/6 - Impression: Increase in bibasilar opacities and left effusion. Continuing clinical and radiographic evaluation suggested. CXR 2 - Impression: Endotracheal tube position as discussed above. The remainder of the study demonstrates no obvious interval change. ASSESSMENT/PLAN: 86 yo F w/ h/o CAD w/ stents, afib on xarelto, HFpEF (EF 67.8%, 2016) and HLD who was sent from her application support developer's office to ED due to office EKG notable for Afib with RVR w/ rate in 160s. Pt critically ill with MOD, severe menigitis and poor reserve. Currently sedated, intubated. Prognosis very poor given multiple underlying comorbities. 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 Xanthochromic, PCR presumptively positive for Strep pneumo antigen. Pt recently offered Prevnar vaccine as inpt, however documented that pt refused. 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; Gram stain negative for organisms - F/u remaining CSF panel -> cell count, culture, AFB, toxo igg, pending bacterial PCRs - Day 5 high dose Amp/gent for suspected listeria meningitis; Vanc/cetriaxone d/ c'ed as unlikely strep pneumo - ID consult, recs appreciated - Strep pneumo, legionella urine ag negative - trend WBC, fever - UA negative - Intubated, sedation on propofol; Last ABG 7.45/34.5/179/23.5 - flu negative - On levo gtt; pt BP stable overnight; gtt decreased from 12 to 10mcg overnight by nursing - Gentamycin trough 0.8 yesterday; acceptable #acute on chronic systolic CHF - CT abdomen with diffuse anasarca /; - Pt still with poor peripheral perfusion; UOP 300ml yesterday for 24 hours; Discussion with ICU attending in PM; will order VBG and potentially start inotropic agent; Risks of arrhythmia outweighed by need for improved perfusion and inotrope-assisted diuresis - daily weights, I&O's - Metoprolol 100mg BID; held in setting of hypotension - Consider lasix, as CXR with worsening congestion, however BP tenuous; remains on pressor support - If pt decompensates clinically, will definitely require SUPERVISOR SHEARING gtt for inotropic support #Afib with RVR, HR in up to 160s today - INR 1.07 today -c/w Amiodarone 400mg PO TID and Metoprolol 100mg PO BID -AC held in setting of elevated INR, sepsis; per cardiology hold off on AC for now - Plan for coumadin/heparin bridging vs. xarelto per cardiology for AC after sepsis resolves #Transaminitis - LFTs normalized, T bili 1.1 -> 0.8 today - Alk phos uptrending 115-> 142 - Trend LFTs #Hypophosphatemia- 1.4 today - Repleted with IV Na-Phos 40mmol this AM - Continue to trend #Hypokalemia - 4.3 today; resolved - trend K; replete as needed - Daily BMPs #SELMA- resolved, cr 0.4 today - Trend Cr - Daily BMPs #HTN -currently hypotensive -hold BP meds #hypothyroidism - c/w Synthroid 75 mcg qd #DVT PPX Xarelto when sepsis resolves #FEN: Free water with tube feeds Daily BMP NG feeds per nutrition Full code Dispo to ICU for further management. Prognosis poor. Family meeting today with ICU team, [facility] discussed Plan d/w attending, Dr. Carlos A Steele, PGY1 Visit type - Emergency Visit Emergency Visit: Yes ED Registration Date: 04/14/17 Care time: The patient presented to the Emergency Department on the above date and was hospitalized for further evaluation of their emergent condition. - New Patient This patient is new to me today: No - Critical Care Critical Care patient: Yes Total Critical Care Time (in minutes): 35 Critical Care Statement: The care of this patient involved high complexity decision making to prevent further life threatening deterioration of the patient 's condition and/or to evaluate & treat vital organ system(s) failure or risk of failure.
--- NOTE | 2017-04-26 06:53 | PN ---
Progress Note, Physician Chief Complaint: ID Remains intubated 70%FIO2 Ampicillin & low dose gentamicin - Current Medication List Current Medications: Active Medications Amiodarone HCl (Cordarone -) 400 mg PO BID [facility] Last Admin: 04/25/17 22:01 Dose: 400 mg Ampicillin Sodium 2 gm/ Sodium (Chloride) 100 mls @ 200 mls/hr IVPB Q4H-IV [facility] Last Admin: 04/26/17 05:26 Dose: 200 mls/hr Gentamicin Sulfate 30 mg/ (Sodium Chloride) 100.75 mls @ 100.75 mls/hr IVPB Q8H -IV [facility] Last Admin: 04/26/17 03:07 Dose: 100.75 mls/hr Norepinephrine Bitartrate 8, (000 mcg/ Dextrose) 500 mls @ 5.61 mls/hr IV ASDIR SIMON; 0.03 MCG/KG/MIN PRN Reason: Protocol Last Admin: 04/26/17 06:23 Dose: 0.2 mcg/kg/min, 37.5 mls/hr Propofol (Diprivan -) 1,000,000 mcg in 100 mls @ 1.546 mls/hr IVPB TITR SIMON; 5 MCG/KG/MIN PRN Reason: Protocol Last Admin: 04/26/17 06:22 Dose: 30 mcg/kg/min, 9.275 mls/hr Levothyroxine Sodium (Synthroid -) 75 mcg PO DAILY@0700 [facility] Last Admin: 04/26/17 06:22 Dose: 75 mcg Melatonin (Melatonin) 5 mg PO HS PRN PRN Reason: INSOMNIA Last Admin: 04/19/17 23:05 Dose: 5 mg Metoprolol Tartrate (Lopressor -) 100 mg PO BID [facility] Last Admin: 04/25/17 22:01 Dose: 100 mg Saliva Substitute (Mouthkote Solution -) 1 applic MM DAILY [facility] Last Admin: 04/25/17 09:03 Dose: 1 applic - Objective Vital Signs: Vital Signs Temperature 97.8 F 04/26/17 06:00 Pulse Rate 101 H 04/26/17 06:00 Respiratory Rate 16 04/26/17 06:00 Blood Pressure 98/66 04/26/17 06:00 O2 Sat by Pulse Oximetry (%) 99 04/25/17 20:31 HENT: Yes: WNL, Atraumatic Cardiovascular: Yes: Regular Rate and Rhythm, S1, S2. No: Murmur Respiratory: Yes: WNL, Regular, CTA Bilaterally, Rales, Other (vent). No: Rhonchi Gastrointestinal: Yes: Normal Bowel Sounds, Soft. 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.12 - LISTERIAL MENINGOENCEPHALITIS (5) Respiratory failure Code(s): J96.90 - RESPIRATORY FAILURE, UNSP, UNSP W HYPOXIA OR HYPERCAPNIA Assessment/Plan Microbiology Laboratory Tests 04/24/17 04/25/17 04/25/17 19:45 05:10 05:10 WBC 7.5 Hgb 13.0 Hct 41.4 Plt Count 139 BUN 15 Creatinine 0.6 Gentamicin Trough 0.8 04/26/17 06:10 WBC Hgb Hct Plt Count BUN Pending Creatinine Pending Gentamicin Trough ECHO extensive valvular heart disease without change from previous Assessment Respiratory failure Acute and chronic heart failure Listeria Monocytogenes bacteremia with meningitis Coronary heart disease Atrial fibrillation Plan Continue current antibiotics as ordered Moniter lytes on aminoglycoside Repeat cultures to look for secondary infection ordered ? broaden coverage Critical care provided 35 minutes Suraj CHRISTENSEN
[2017-04-26 07:15] LABS: INR 1.07 (0.82-1.09); PROTHROMBIN TIME (PATIENT) 12.1 SEC (9.98-11.88)
[2017-04-26 07:31] LABS: ALBUMIN 1.2 g/dl (3.4-5.0); ALK PHOS 142 U/L (45-117); ANION GAP 7 (8-16); BILIRUBIN,TOTAL 0.8 mg/dL (0.2-1.0); BLOOD UREA NITROGEN 12 mg/dL (7-18); CHLORIDE 105 mmol/L (98-107); CO2 25 mmol/L (21-32); CREATININE 0.4 mg/dL (0.55-1.02); GLUCOSE,RANDOM 147 mg/dL (74-106); PHOSPHOROUS 1.4 mg/dL (2.5-4.9); POTASSIUM 4.3 mmol/L (3.5-5.1); SGOT/AST 19 U/L (15-37); SGPT/ALT 22 U/L (12-78); SODIUM 137 mmol/L (136-145); TOT PROT 3.6 g/dl (6.4-8.2)
[2017-04-26 07:34] LABS: BASO % 0.1 % (0-2.0); EOS % 2.3 % (0-4.5); HEMATOCRIT 41.5 % (32.4-45.2); HEMOGLOBIN 12.9 GM/dL (10.7-15.3); LYMPH % 2.7 % (8-40); MCH 26.8 pg (25.7-33.7); MCHC 31.2 g/dl (32.0-36.0); MEAN CELL VOLUME 86.1 fl (80-96); MEAN PLT VOLUME 8.9 fl (7.5-11.1); MONO % 1.7 % (3.8-10.2); NEUT % 93.2 % (42.8-82.8); PLATELET COUNT 125 K/MM3 (134-434); RBC 4.82 M/mm3 (3.60-5.2); RDW 18.1 % (11.6-15.6); WHITE BLOOD COUNT 11.2 K/mm3 (4.0-10.0)
[2017-04-26 08:44] LABS: CALCIUM 5.8 mg/dL (8.5-10.1)
[2017-04-26] MEDS ORDERED: PT OWN MED DRAWER 7, Y5N ONE ×3 (09:41→18:31)
--- NOTE | 2017-04-26 09:46 | PN ---
Progress Note, Physician Chief Complaint: septic shock due to meningitis History of Present Illness: Pt is intubated and sedated. Discussed patient's progress/critical status with daughter at bedside, including future possibility of trach, current pressure support and continued fevers on antibiotics. daughter will discuss with the family about patient's status. answered all questions to her satisfaction. - Current Medication List Current Medications: Active Medications Amiodarone HCl (Cordarone -) 400 mg PO BID [facility] Last Admin: 04/25/17 22:01 Dose: 400 mg Ampicillin Sodium 2 gm/ Sodium (Chloride) 100 mls @ 200 mls/hr IVPB Q4H-IV [facility] Last Admin: 04/26/17 05:26 Dose: 200 mls/hr Gentamicin Sulfate 30 mg/ (Sodium Chloride) 100.75 mls @ 100.75 mls/hr IVPB Q8H -IV [facility] Last Admin: 04/26/17 03:07 Dose: 100.75 mls/hr Norepinephrine Bitartrate 8, (000 mcg/ Dextrose) 500 mls @ 5.61 mls/hr IV ASDIR SIMON; 0.03 MCG/KG/MIN PRN Reason: Protocol Last Admin: 04/26/17 06:23 Dose: 0.2 mcg/kg/min, 37.5 mls/hr Propofol (Diprivan -) 1,000,000 mcg in 100 mls @ 1.546 mls/hr IVPB TITR SIMON; 5 MCG/KG/MIN PRN Reason: Protocol Last Admin: 04/26/17 06:22 Dose: 30 mcg/kg/min, 9.275 mls/hr Sodium Phosphate 40 mm/ (Dextrose) 263.3333 mls @ 62.5 mls/hr IVPB ONCE ONE Stop: 04/26/17 12:31 Levothyroxine Sodium (Synthroid -) 75 mcg PO DAILY@0700 [facility] Last Admin: 04/26/17 06:22 Dose: 75 mcg Melatonin (Melatonin) 5 mg PO HS PRN PRN Reason: INSOMNIA Last Admin: 04/19/17 23:05 Dose: 5 mg Metoprolol Tartrate (Lopressor -) 100 mg PO BID [facility] Last Admin: 04/25/17 22:01 Dose: 100 mg Potassium Phos/Sodium Phos (Phos-Nak Packet -) 1 packet NGT DAILY [facility] Stop: 04/28/17 09:59 Saliva Substitute (Mouthkote Solution -) 1 applic MM DAILY SIMON Last Admin: 04/25/17 09:03 Dose: 1 applic - Objective Vital Signs: Vital Signs Temperature 97.8 F 04/26/17 06:00 Pulse Rate 101 H 04/26/17 06:00 Respiratory Rate 22 04/26/17 08:15 Blood Pressure 98/66 04/26/17 06:00 O2 Sat by Pulse Oximetry (%) 99 04/25/17 20:31 Constitutional: Yes: Calm Eyes: Yes: Other (b/l scleral edema) HENT: Yes: Atraumatic, Normocephalic Neck: Yes: Supple, Trachea Midline Cardiovascular: Yes: Tachycardia, S1, S2 Respiratory: Yes: Regular, CTA Bilaterally, Mechanically Ventilated Gastrointestinal: Yes: Normal Bowel Sounds, Soft, Other (lower abdominal pitting edema) Genitourinary: Yes: Judge Present Extremities: Yes: Cool Edema: Yes Edema: LUE: 3+, RUE: 3+, LLE: 3+, RLE: 3+ Integumentary: Yes: Other (serous drainage b/l UE) Labs: CBC, BMP 04/26/17 06:10 04/26/17 06:10 INR, PTT INR 1.07 (0.82-1.09) 04/26/17 06:10 Fibrinogen 252.0 mg/dL (238-498) 04/23/17 05:15 Assessment/Plan 86 year old woman with of CAD w/ stents, afib on xarelto, HFpEF (EF decr on recent echo 04/24) and HLD who initially presented to the hospital for afib with RVR now transferred to the ICU for severe sepsis due to 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 NEURO Sedated with propofol, poorly responsive consult: dr. Livingston CV #septic shock - levophed titrate as needed to maintain MAP >65, would likely need to consider phenylephrine as a second line agent if levophed is not enough #Afib - rate control with amiodarone 400mg po BID, lopressor 100mgpo BID - pt was on xarelto at home, which was held due to coagulopathy/elevated INR, now on lovenox for DVT ppx #diastolic CHF (echo 2 with global hypokinesis of LV/reduced ef/elevated rt atrial pressure) - monitor CVP, goal 8-12, however with anasarca and hypotension unable to diurese - test venous blood gas to assess utility of ionotropic support RESP -intubated, tolerating Fio2 70% maintain sat>90% GI #transaminitis - likely elevated due to sepsis, improved, Tbili today is normal Renal SELMA has improved ID #Sepsis: bacteremia, meningitis, colitis Blood cx 04/20 Positive for listeria, repeat 04/22 and 04/25 neg to date for growth -Continue Ampicillin and Gentamycin for aggressive antibiotic coverage (started 04/22) - completed zoyn 04/20-04/22, vanc 04/20-04/24, rocephin 04/23-04/24 -Continue to manage fever with tylenol IV/po ENDO Hypothyroidism: levo 75mcg daily FEN/GI -Replete electrolytes PRN, corrected Ca 8.5 -no IVF -tube feeds with osmolite - dvt ppx with lovenox 40subq daily - gi ppx with famotadine DISPO: Continue ICU level of care.
[2017-04-26] MEDS: AMIODARONE HCL 200 MG TABLET (FP) PO SCH ×2 (09:48→21:22)
[2017-04-26] MEDS: LYTES/YERBA SANTA 240 ML BOTTLE MM SCH (09:50)
[2017-04-26] MEDS: METOPROLOL TARTRATE 50 MG TABLET (FP) PO SCH ×2 (09:50→21:09)
[2017-04-26] MEDS: NAPH,MB-DB/K PH,MBDB POWDER PACKET NGT SCH (09:51)
[2017-04-26] MEDS ORDERED: WATER IVPB ONE (10:00)
[2017-04-26] MEDS ORDERED: DEXTROSE IVPB ONE (10:00)
[2017-04-26] MEDS ORDERED: SODIUM PHOSPHATE IVPB ONE (10:00)
--- NOTE | 2017-04-26 10:27 | EKG ---
Test Reason : Blood Pressure : / mmHG Vent. Rate : 129 BPM Atrial Rate : 107 BPM P-R Int : 000 ms QRS Dur : 086 ms QT Int : 322 ms P-R-T Axes : 000 -49 183 degrees QTc Int : 471 ms ATRIAL FIBRILLATION WITH RAPID VENTRICULAR RESPONSE LEFT AXIS DEVIATION ABNORMAL ECG WHEN COMPARED WITH ECG OF 19-APR-2017 10:07, NO SIGNIFICANT CHANGE WAS FOUND Confirmed by JERRY BUTLER MD ([id number]) on 04/26/2017 10:26:48 AM Referred By: TRU ARMANDO DR Confirmed By:JERRY BUTLER MD
--- NOTE | 2017-04-26 12:15 | PN ---
Progress Note (short form) - Note Progress Note: NEUROLOGY FOLLOW-UP Events reviewed and discussed with Dr. Ruelas and ICU resident staff. On Ampicillin and Gentamicin for Listeria meningitis. Fevers improved. Hepatic dysfunction improving. Remains intubated but no sedation. Grimaces to sternal pressure. + Shallow spontaneous respiration. Nuchal rigidity has diminished. Min withdrawal to pain. No seizure activity noted. IMP: B/L Cerebral dysfunction Listeria Meningitis. SUGGEST: Continue antibiotics and supportive care. Update CT of head (Non-contrast) to R/o Hycrocephalus. Prognosis guarded. Thank you very much, Ish Livingston MD
--- NOTE | 2017-04-26 12:27 | PN ---
Progress Note, Physician History of Present Illness: "Patient is an 86 year old female with a significant past medical history of CAD w/ stents, afib on xarelto, HFpEF (EF 67.8%, 2016) and HLD who presents to the ED for tachycardia. Patient was seen in cardiology clinic today and was found on EKG to be in afib with RVR with a rate of 160. She was subsequently sent to ER for management. Patient currently has no complaints or pain while in the ED. Denies ever having CP/SOB/palpitations. Denies F/C/N/V/D. Reports compliance with all of her medications. Patient presented to the office Off amiodarone and with reduced dose of bb. 2 weeks h/o of decompensated chf rx with increased dose of lasix. yesterday vissiting nurse noted pulse 160's, ems called, confirmed, patient refused admission to hospital yesterday. Today in my office she presented asymptomatic with +3 lower extremity edema and AF with RVR 167 bpm. PMH ASHD s/p PTCA SANNA mLAD PTCA D2 2007 Atrial fibrillation HHD HTN Positive MIBI in the past refused repeated c. cath - Current Medication List Current Medications: Active Medications Amiodarone HCl (Cordarone -) 400 mg PO BID SIMON Last Admin: 04/26/17 09:48 Dose: 400 mg Ampicillin Sodium 2 gm/ Sodium (Chloride) 100 mls @ 200 mls/hr IVPB Q4H-IV SIMON Last Admin: 04/26/17 10:15 Dose: 200 mls/hr Gentamicin Sulfate 30 mg/ (Sodium Chloride) 100.75 mls @ 100.75 mls/hr IVPB Q8H -IV SIMON Last Admin: 04/26/17 09:48 Dose: 100.75 mls/hr Norepinephrine Bitartrate 8, (000 mcg/ Dextrose) 500 mls @ 5.61 mls/hr IV ASDIR SIMON; 0.03 MCG/KG/MIN PRN Reason: Protocol Last Admin: 04/26/17 06:23 Dose: 0.2 mcg/kg/min, 37.5 mls/hr Propofol (Diprivan -) 1,000,000 mcg in 100 mls @ 1.546 mls/hr IVPB TITR SIMON; 5 MCG/KG/MIN PRN Reason: Protocol Last Admin: 04/26/17 06:22 Dose: 30 mcg/kg/min, 9.275 mls/hr Sodium Phosphate 40 mm/ (Dextrose) 513.3333 mls @ 85.55 mls/hr IVPB ONCE ONE PRN Reason: 40 MM/6 HR Stop: 04/26/17 16:00 Levothyroxine Sodium (Synthroid -) 75 mcg PO DAILY@0700 [facility] Last Admin: 04/26/17 06:22 Dose: 75 mcg Melatonin (Melatonin) 5 mg PO HS PRN PRN Reason: INSOMNIA Last Admin: 04/19/17 23:05 Dose: 5 mg Metoprolol Tartrate (Lopressor -) 100 mg PO BID [facility] Last Admin: 04/26/17 09:50 Dose: 100 mg Potassium Phos/Sodium Phos (Phos-Nak Packet -) 1 packet NGT DAILY [facility] Stop: 04/28/17 09:59 Last Admin: 04/26/17 09:51 Dose: 1 packet Saliva Substitute (Mouthkote Solution -) 1 applic MM DAILY [facility] Last Admin: 04/26/17 09:50 Dose: 1 applic - Objective Vital Signs: Vital Signs Temperature 101.2 F H 04/26/17 10:00 Pulse Rate 119 H 04/26/17 10:00 Respiratory Rate 19 04/26/17 10:40 Blood Pressure 101/77 04/26/17 10:00 O2 Sat by Pulse Oximetry (%) 99 04/25/17 20:31 Eyes: Yes: WNL, Conjunctiva Clear, EOM Intact HENT: Yes: WNL, Atraumatic, Normocephalic Neck: Yes: WNL, Supple, Trachea Midline Cardiovascular: Yes: Pulse Irregular, S1, S2 Respiratory: Yes: Diminished, Mechanically Ventilated Gastrointestinal: Yes: WNL, Normal Bowel Sounds Genitourinary: Yes: WNL Musculoskeletal: Yes: WNL Extremities: Yes: WNL Edema: Yes Integumentary: Yes: WNL ...Motor Strength: WNL Psychiatric: Yes: WNL Labs: CBC, BMP 04/26/17 06:10 04/26/17 06:10 INR, PTT INR 1.07 (0.82-1.09) 04/26/17 06:10 Fibrinogen 252.0 mg/dL (238-498) 04/23/17 05:15 Problem List - Problems (1) Acute on chronic systolic and diastolic heart failure, NYHA class 2 Code(s): I50.43 - ACUTE ON CHRONIC COMBINED SYSTOLIC AND DIASTOLIC HRT FAIL (2) CAD (coronary artery disease) Code(s): I25.10 - ATHSCL HEART DISEASE OF [place] CORONARY ARTERY W/O ANG PCTRS (3) Dizziness Code(s): R42 - DIZZINESS AND GIDDINESS (4) Afib Code(s): I48.91 - UNSPECIFIED ATRIAL FIBRILLATION (5) CHF (congestive heart failure) Code(s): I50.9 - HEART FAILURE, UNSPECIFIED Assessment/Plan (1) Atrial fibrillation with RVR Assessment/Plan: . replete Mg and PO4. Continue metoprolol and amiodarone. echo severely redusecd EF Code(s): I48.91 - UNSPECIFIED ATRIAL FIBRILLATION (2) Acute on chronic systolic and diastolic heart failure, NYHA class 2 Assessment/Plan: On amiodarone and metoprolol. Problematic giving other agents (e.g. ACEI, RAAS, hydralazine + isordil) at the present time due to renal insufficiency and relative hypotension. ECHO: f/u repeat for LVEF. F/u CXR today showed no significant change from initial CXR (infiltrate, pleural effusion) F/u BUn/Cr, electrolytes, Is and Os, daily weight. Code(s): I50.43 - ACUTE ON CHRONIC COMBINED SYSTOLIC AND DIASTOLIC HRT FAIL (3) CAD (coronary artery disease) Code(s): I25.10 - ATHSCL HEART DISEASE OF [place] CORONARY ARTERY W/O ANG PCTRS (4) Hypothyroid Assessment/Plan: elevated TSH; free T4 is also mildly elevated. Following thryoid function is especially important when on amiodarone. Code(s): E03.9 - HYPOTHYROIDISM, UNSPECIFIED (5) Renal insufficiency Assessment/Plan: f/u carefully (on furosemide for acute CHF); avoid excessive dehydration. Code(s): N28.9 - DISORDER OF KIDNEY AND URETER, UNSPECIFIED (6) Acute respiratory failure Assessment/Plan: on antibiotics for septic shock. 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 Antibiotics per ID. Code(s): A41.9 - SEPSIS, UNSPECIFIED ORGANISM; R65.21 - SEVERE SEPSIS WITH SEPTIC SHOCK (8) CHF (congestive heart failure) Assessment/Plan: on metoprolol and amiodarone. Furosemide held (sepsis; hypotension). On norepinephrine IV for pressure support; cionsider IVF ID/neuro input regarding listeria meningitis, septic shock appreciated condition is guarded cc time 37 min
--- NOTE | 2017-04-26 13:17 | PN ---
Teaching Attending Note Name of Resident: Luisito Steele ATTENDING PHYSICIAN STATEMENT I saw and evaluated the patient. I reviewed the resident's note and discussed the case with the resident. I agree with the resident's findings and plan as documented. SUBJECTIVE:sedated/intubated OBJECTIVE: Last Vital Signs Temp Pulse Resp BP Pulse Ox 101.2 F H 119 H 19 101/77 99 04/26/17 10:00 04/26/17 10:00 04/26/17 10:40 04/26/17 10:00 04/25/17 20:31 Intake & Output 04/23/17 04/24/17 04/25/17 04/26/17 23:59 23:59 23:59 23:59 Intake Total 1789 2330 3842.4 1570 Output Total 1100 900 300 150 Balance 689 1430 3542.4 1420 Weight 110 lb 1.6 oz 113 lb 9.6 oz 124 lb 128 lb 1.6 oz General sedated HEENT icteric CV S1 S2 irregular irregular Lungs Coarse breath sounds Abdomen soft NT/ND Extremities + B/L pitting edema ASSESSMENT AND PLAN: 86yo F with PMH AFib on xarelto, CAD s/p stents, hypothyroid, Systolic CHF, dyslipidemia sent to the ER by 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 on levo 10mcg. repeat cx sent yesterday. on Ampicillin/Gent day 4. Gent trough acceptable. believe strep PCR is false positive as BCx is growing listeria and unlikely to have 2 different organisms. spoke with ID. ID on board 2. Acute hypoxic respiratory failure from septic shock and likely systolic HF exacerbation from volume resuscitation- on full vent support. titrate down setting as tolerated. vent management from ICU team. propofol for sedation. vacation sedations 3. Afib with RVR- overall improved. metoprolol on hold due to hypotension from septic shock. on amio. cardio on board. Xarelto on hold due to coagulopathy 4. Acute Systolic Heart failure exacerbation- unable to diuresis in setting of septic shock. continues to be volume overloaded. unable to give lasix. will need to speak with cardio about ionotropic support to assist. 5. Coagulopathy, elevated INR, suspect from hepatic congestion/amiodarone- resolved 6. Acute transaminitis-likely congestive hepatopathy. now resolved 7. Hypothyoridism 8. SELMA, prerenal likely from CKD on her CKD (from poor EF)- resolved 9. Hypokalemia- resolved 10. Pseduohypocalcemia- Corrected CA 8.5 11. Severe hypophosphatemia- Kphos IV 12. DVT ppx- heparin sq on hold due to coagulopathy. if INR remains stable will consider starting hep sq. 13. Poor overall prognosis. will need to speak with HCP for goals of care. total critical care time spent 35 min.
--- NOTE | 2017-04-26 15:23 | PN ---
Teaching Attending Note Name of Resident: Kyra Patel ATTENDING PHYSICIAN STATEMENT I saw and evaluated the patient. I reviewed the resident's note and discussed the case with the resident. I agree with the resident's findings and plan as documented. SUBJECTIVE: Pt seen and examined in the ICU. Remains intubated but poorly responsive on levophed gtt and 70% FiO2. Still with intermittent fevers. OBJECTIVE: Last Vital Signs Temp Pulse Resp BP Pulse Ox 101.2 F H 112 H 17 98/77 97 04/26/17 10:00 04/26/17 12:00 04/26/17 13:00 04/26/17 12:00 04/26/17 09:00 Intake & Output 04/23/17 04/24/17 04/25/17 04/26/17 23:59 23:59 23:59 23:59 Intake Total 1789 2330 3842.4 1570 Output Total 1100 900 300 150 Balance 689 1430 3542.4 1420 Weight 49.941 kg 51.528 kg 56.245 kg 58.105 kg Gen: intubated, poorly responsive Heart: tachycardic, regular Lung: bilateral rhonchi Abd: soft, nontender Ext: + edema CBC, BMP 04/26/17 06:10 04/26/17 06:10 Hepatic Panel Total Bilirubin 0.8 mg/dL (0.2-1.0) D 04/26/17 06:10 AST 19 U/L (15-37) 04/26/17 06:10 ALT 22 U/L (12-78) 04/26/17 06:10 Alkaline Phosphatase 142 U/L (45-117) H 04/26/17 06:10 Albumin 1.2 g/dl (3.4-5.0) L 04/26/17 06:10 INR, PTT INR 1.07 (0.82-1.09) 04/26/17 06:10 Fibrinogen 252.0 mg/dL (238-498) 04/23/17 05:15 Active Medications Amiodarone HCl (Cordarone -) 400 mg PO BID SIMON Last Admin: 04/26/17 09:48 Dose: 400 mg Ampicillin Sodium 2 gm/ Sodium (Chloride) 100 mls @ 200 mls/hr IVPB Q4H-IV SIMON Last Admin: 02/07/18 10:15 Dose: 200 mls/hr Gentamicin Sulfate 30 mg/ (Sodium Chloride) 100.75 mls @ 100.75 mls/hr IVPB Q8H -IV [facility]ON Last Admin: 04/26/17 09:48 Dose: 100.75 mls/hr Norepinephrine Bitartrate 8, (000 mcg/ Dextrose) 500 mls @ 5.61 mls/hr IV ASDIR SIMON; 0.03 MCG/KG/MIN PRN Reason: Protocol Last Admin: 04/26/17 06:23 Dose: 0.2 mcg/kg/min, 37.5 mls/hr Propofol (Diprivan -) 1,000,000 mcg in 100 mls @ 1.546 mls/hr IVPB TITR SIMON; 5 MCG/KG/MIN PRN Reason: Protocol Last Admin: 04/26/17 06:22 Dose: 30 mcg/kg/min, 9.275 mls/hr Sodium Phosphate 40 mm/ (Dextrose) 513.3333 mls @ 85.55 mls/hr IVPB ONCE ONE PRN Reason: 40 MM/6 HR Stop: 04/26/17 16:00 Levothyroxine Sodium (Synthroid -) 75 mcg PO DAILY@0700 [facility] Last Admin: 04/26/17 06:22 Dose: 75 mcg Melatonin (Melatonin) 5 mg PO HS PRN PRN Reason: INSOMNIA Last Admin: 04/19/17 23:05 Dose: 5 mg Metoprolol Tartrate (Lopressor -) 100 mg PO BID [facility] Last Admin: 04/26/17 09:50 Dose: 100 mg Potassium Phos/Sodium Phos (Phos-Nak Packet -) 1 packet NGT DAILY [facility] Stop: 04/28/17 09:59 Last Admin: 04/26/17 09:51 Dose: 1 packet Saliva Substitute (Mouthkote Solution -) 1 applic MM DAILY [facility] Last Admin: 04/26/17 09:50 Dose: 1 applic ASSESSMENT AND PLAN: Acute Hypoxic Respiratory Failure Listeria Meningitis/Bacteremia Acute Colitis Septic Shock Atrial Fibrillation with RVR Acute Kidney Injury improving Lactic Acidosis resolved Elevated LFTs resolved Acute on Chronic Diastolic Heart Failure Coagulopathy improved Hypothyroidism - continue antibiotics per ID - f/u CSF cultures - titrate pressors to maintain MAP >65 - monitor urine output, creatinine - rate control - anticoagulation, target INR 2-3 - replete lytes - O2 to keep SpO2 >90% - continue ICU monitoring - guarded prognosis critical care time spent in reviewing chart, evaluating patient and formulating plan 35 min
[2017-04-26 16:20] LABS: ARTERIAL BLOOD GAS PCO2 30.9 mmHg (35-45); ARTERIAL BLOOD GAS pH 7.47 (7.35-7.45)
[2017-04-26 16:21] LABS: ALLENS TEST POSITIVE; ARTERIAL BLD GAS O2 SATURATION 99.4 % (90-98.9); ARTERIAL BLOOD GAS BASE EXCESS -0.3 meq/l (-2-2)
[2017-04-26] MEDS ORDERED: PROPOFOL 1,000,000 MCG/100 ML VIAL ONE (17:16)
[2017-04-26] MEDS ORDERED: ENOXAPARIN NA (PORCINE) 40 MG/0.4 ML DISP.SYRIN SQ SCH ×2 (17:30→19:00)
[2017-04-26 17:41] LABS: VENOUS PH 7.39 (7.32-7.42)
[2017-04-26 17:42] LABS: VENOUS PC02 43.8 mmHg (38-52); VENOUS PO2 34.9 mmHg (28-48)
--- NOTE | 2017-04-26 18:20 | PN ---
Progress Note (short form) - Note Progress Note: Mixed venous blood sample taken from port at 5.40pm resulted with Oxygen saturation of 64.3. D/W Dr Maldonado, likely cardiogenic component with the shock.
[2017-04-26] MEDS ORDERED: NOREPINEPHRINE BITARTRATE 4 MG/4 ML ML IV ONE ×2 (18:31→23:52)
[2017-04-26] MEDS ORDERED: ENOXAPARIN NA (PORCINE) 80 MG/0.8 ML DISP.SYRIN SQ SCH (19:00)
[2017-04-26] MEDS: NOREPINEPHRINE BITARTRATE 16,000 MCG in SODIUM CHLORIDE 0.45% 984 ML IV SCH (21:22)
[2017-04-26] MEDS: FAMOTIDINE 20 MG/50 ML IVPB 20 MG/50 ML MG IVPB SCH (21:23)
[2017-04-26] MEDS ORDERED: FAMOTIDINE IV 20 MG/12 ML VIAL IVPUSH SCH (22:00)
[2017-04-27] MEDS: AMPICILLIN - 2 GM in SODIUM CHLORIDE 100 ML IVPB SCH ×6 (02:18→21:36)
[2017-04-27] MEDS: GENTAMICIN IVPB SCH ×3 (02:22→17:04)
[2017-04-27] MEDS: SODIUM CHLORIDE IVPB SCH ×3 (02:22→17:04)
[2017-04-27] MEDS: PROPOFOL 1,000,000 MCG/100 ML VIAL IVPB SCH ×3 (02:37→21:35)
--- NOTE | 2017-04-27 05:01 | PN ---
Physical Exam: SUBJECTIVE: Patient seen and examined by me this AM - No major overnight events. Pt remains sedated, intubated. On levo gtt, 15mcg. Afebrile overnight. BP well maintained. ABG yesterday 7.47/22. Bm overnight per nursing staff. - Spoke with cardiology about starting inotrope support given severely reduced EF. Plan to start [place] gtt today. OBJECTIVE: Vital Signs Intake & Output 04/24/17 04/25/17 04/26/17 04/27/17 23:59 23:59 23:59 23:59 Intake Total 2330 3842.4 3290 Output Total 900 300 200 Balance 1430 3542.4 3090 Weight 51.528 kg 56.245 kg 58.105 kg Period Temp Pulse Resp BP Sys/Gandara Pulse Ox Last 24 Hr 97.8 F-101.2 F 94-135 16-22 83-103/66-83 97-97 GENERAL: Sedated, intubated. HEAD: NG tube in place. Normal with no signs of trauma. EYES: Pupils pinpoint, reactive to light; sclera anicteric. No lid lag. EARS, NOSE, THROAT: Ears normal, nares patent. ETT tube at lip. Moist mucous membranes. NECK: No lymphadenopathy, or masses. LUNGS: Less congested, decreased breath sounds at bases. Mechanical breath sounds in upper airway. No accessory muscle use. HEART: Irregularly Irregular, normal S1 and S2 without murmur, rub or gallop. ABDOMEN: Soft, nontender, not distended, normoactive bowel sounds, no guarding, no rebound, no masses. No hepatomegaly or splenomegaly. MUSCULOSKELETAL: Normal range of motion at all joints. No bony deformities or tenderness. No CVA tenderness. UPPER EXTREMITIES: 1+ radial pulses, cool to touch. No cyanosis. No clubbing. 2 + peripheral edema BL. LOWER EXTREMITIES: 2+ pitting edema BL to knees. Pulses not palpable, cool to touch. No calf tenderness. BL superficial varicose veins on anterior shins. NEUROLOGICAL: Nonverbal, sedated. Withdraws to pain, deep abdominal palpation. Brainstem reflexes intact. Negative Babinskis BL. SKIN: Warm, dry, normal turgor, no rashes or lesions noted, normal capillary refill. Laboratory Results - last 24 hr CBC, BMP 04/27/17 05:10 04/27/17 05:10 04/26/17 06:10 04/26/17 06:10 04/26/17 04/26/17 04/26/17 06:00 06:10 06:10 WBC 11.2 H D RBC 4.82 Hgb 12.9 Hct 41.5 MCV 86.1 MCH 26.8 MCHC 31.2 L RDW 18.1 H Plt Count 125 L MPV 8.9 Neutrophils % 93.2 H Lymphocytes % 2.7 L D Monocytes % 1.7 L Eosinophils % 2.3 Basophils % 0.1 PT with INR INR Anticoagulation Therapy Puncture Site Right radial ABG pH 7.45 ABG pCO2 at Pt Temp 34.5 L ABG pO2 at Pt Temp 179.0 H* ABG HCO3 23.5 ABG O2 Sat (Measured) 99.6 H* ABG O2 Content 19.0 ABG Base Excess 0.4 José Miguel Test Positive VBG pH POC VBG pCO2 POC VBG pO2 Mixed VBG HCO3 O2 Delivery Device Mech vent Oxygen Flow Rate 70 Vent Mode A/c Vent Rate 12 Mechanical Rate PEEP 5.0 Pressure Support Vent 350 Sodium 137 Potassium 4.3 Chloride 105 Carbon Dioxide 25 Anion Gap 7 L BUN 12 Creatinine 0.4 L Creat Clearance w eGFR > 60 Random Glucose 147 H Calcium 5.8 L* Phosphorus 1.4 L Magnesium 2.0 Total Bilirubin 0.8 D AST 19 ALT 22 Alkaline Phosphatase 142 H Total Protein 3.6 L Albumin 1.2 L 04/26/17 04/26/17 04/26/17 06:10 16:15 17:10 WBC RBC Hgb Hct MCV MCH MCHC RDW Plt Count MPV Neutrophils % Lymphocytes % Monocytes % Eosinophils % Basophils % PT with INR 12.10 H INR 1.07 Anticoagulation Therapy No Result Required. Puncture Site Right radial ABG pH 7.47 H ABG pCO2 at Pt Temp 30.9 L ABG pO2 at Pt Temp 196.0 H* ABG HCO3 22.2 ABG O2 Sat (Measured) 99.4 H ABG O2 Content 18.1 ABG Base Excess -0.3 José Miguel Test Positive VBG pH 7.39 POC VBG pCO2 43.8 POC VBG pO2 34.9 Mixed VBG HCO3 25.7 H O2 Delivery Device No Result Required. Oxygen Flow Rate Yes Vent Mode No Result Required. Vent Rate No Result Required. Mechanical Rate No Result Required. PEEP Pressure Support Vent No Result Required. Sodium Potassium Chloride Carbon Dioxide Anion Gap BUN Creatinine Creat Clearance w eGFR Random Glucose Calcium Phosphorus Magnesium Total Bilirubin AST ALT Alkaline Phosphatase Total Protein Albumin Active Medications Generic Name Dose Route Start Last Admin Trade Name Freq PRN Reason Stop Dose Admin Amiodarone HCl 400 mg 04/20/17 10:00 04/26/17 21:22 Cordarone - PO 400 mg BID SIMON Administration Enoxaparin Sodium 85 mg 04/26/17 19:00 Lovenox - SQ DAILY SIMON Ampicillin Sodium 2 gm/ Sodium 100 mls @ 200 mls/hr 04/22/17 12:00 04/27/17 02:18 Chloride IVPB 200 mls/hr Q4H-IV SIMON Administration Gentamicin Sulfate 30 mg/ 100.75 mls @ 100.75 mls/hr 04/22/17 12:00 04/27/17 02:22 Sodium Chloride IVPB 100.75 mls/hr Q8H-IV SIMON Administration Propofol 1,000,000 mcg in 100 mls @ 1.546 mls/hr 04/24/17 18:00 04/27/17 02: 37 Diprivan - IVPB 30 mcg/kg/min TITR SIMON 9.275 mls/hr Protocol Administration 5 MCG/KG/MIN Famotidine/Sodium Chloride 20 mg in 50 mls @ 100 mls/hr 04/26/17 22:00 21:23 Pepcid 20 Mg Premixed Ivpb - IVPB 100 mls/hr BID SIMON Administration Norepinephrine Bitartrate 16, 1,000 mls @ 18.75 mls/hr 04/26/17 20:15 21:22 000 mcg/ Sodium Chloride IV 15 mcg/min TITR SIMON 56.25 mls/hr Protocol Administration 5 MCG/MIN Levothyroxine Sodium 75 mcg 04/15/17 07:00 04/26/17 06:22 Synthroid - PO 75 mcg DAILY@0700 SIMON Administration Melatonin 5 mg 04/18/17 16:54 04/19/17 23:05 Melatonin PO 5 mg HS PRN Administration INSOMNIA Metoprolol Tartrate 100 mg 04/18/17 22:00 04/26/17 21:09 Lopressor - PO Not Given BID SIMON Potassium Phos/Sodium Phos 1 packet 04/26/17 10:00 04/26/17 09:51 Phos-Nak Packet - NGT 04/28/17 09:59 1 packet DAILY SIMON Administration Saliva Substitute 1 applic 04/20/17 17:15 04/26/17 09:50 Mouthkote Solution - MM 1 applic DAILY SIMON Administration Microbiology 04/22/17 16:45 Cerebral Spinal Fluid - Lumbar Puncture AFB Smear Concentration - Final 04/25/17 11:00 Sputum - Endotrachea Suction/Ventilator Sputum Culture - Preliminary Yeast Like Organism 04/22/17 11:34 Blood - Peripheral Venous Blood Culture - Preliminary NO GROWTH OBTAINED AFTER 96 HOURS, INCUBATION TO CONTINUE FOR 1 DAYS. 04/25/17 11:15 Blood - Peripheral Venous Blood Culture - Preliminary NO GROWTH OBTAINED AFTER 24 HOURS, INCUBATION TO CONTINUE FOR 4 DAYS. 04/22/17 11:29 Blood - Peripheral Venous Blood Culture - Preliminary NO GROWTH OBTAINED AFTER 96 HOURS, INCUBATION TO CONTINUE FOR 1 DAYS. 04/25/17 11:18 Urine - Urine Ujdge Urine Culture - Final NO GROWTH OBTAINED 04/25/17 09:35 Blood - Peripheral Venous Blood Culture - Preliminary NO GROWTH OBTAINED AFTER 24 HOURS, INCUBATION TO CONTINUE FOR 4 DAYS. 04/22/17 16:45 Cerebral Spinal Fluid - Lumbar Puncture Gram Stain - Final 04/22/17 16:45 Cerebral Spinal Fluid - Lumbar Puncture CSF Culture - Final NO GROWTH AFTER 48 HOURS INCUBATION 04/20/17 08:30 Blood - Peripheral Venous Blood Culture - Final Listeria Monocytogenes 04/20/17 09:15 Blood - Peripheral Venous Blood Culture - Preliminary Listeria Monocytogenes 04/23/17 10:05 Urine For Antigen Detection Legionella Antigen - Final 04/23/17 10:05 Urine For Antigen Detection Streptococcus pneumoniae Antigen (M - Final 04/22/17 16:45 Cerebral Spinal Fluid - Lumbar Puncture Streptococcus pneumoniae Antigen (M - Final 04/18/17 08:00 Blood - Peripheral Venous Blood Culture - Final NO GROWTH AFTER 5 DAYS INCUBATION 04/18/17 08:00 Blood - Peripheral Venous Blood Culture - Final NO GROWTH AFTER 5 DAYS INCUBATION 04/20/17 11:05 Urine - Urine - Catheterized Urine Culture - Final NO GROWTH OBTAINED 04/20/17 07:55 Nasopharyngeal Swab Influenza Types A,B Antigen (SÁNCHEZ) - Final 04/20/17 07:55 Nasopharyngeal Swab - Final 04/15/17 04:30 Nasopharyngeal Swab Influenza Types A,B Antigen (SÁNCHEZ) - Final 04/15/17 04:30 Nasopharyngeal Swab - Final Prior echo in 2016 -> pulm htn, severe TR, EF ~67%, dilated atria Echo 02/10 - LVEF reduced in setting of afib with RVR, moderate MR, moderate TR , RV pressure 40-50, LAE Persantine stress test 02/14 - relatively unremarkable with minimal ischemic changes. EKG 04/14 - Afib w/ RVR, no ST changes, TWI in lateral leads, Rate 164 CXR 04/14 - Cardiomegaly, mild congestion, BL pleural effusions ABdominal U/S 04/16 - R pleural effusion; fatty infiltrates of liver; atrophic kidneys with no evidence of hydronephrosis EKG 04/17 - Afib w/ RVR. rate 110, NAD, QTC 446 CXR 04/18 - no change CT head 04/19 - no acute bleed or mass effect; mild atropy EKG 04/19 - Afib/flutter, rate of 106, NAD, QTC 470, no TW changes CXR 04/20 - Right pleural effusion with compressive atelectasis. Elevated left diaphragm. Questionable left pleural effusion. No pneumothorax is seen CXR 04/21 - Since the prior study of 04/20/2017, the feeding tube is been inserted and the tip is in the left upper quadrant/stomach. The patient is rotated to the right. There is a large heart, unfolded aorta and some bibasilar changes. Correlation recommended. CXR 04/22 - Since prior study of 04/21/2017, the feeding tube remains in place. There appears to be a progressive left infiltrate with fluid and/or atelectasis. There is a large heart with sclerotic knob. Correlation recommended. Ab/pelvis CT 04/21 - Impression: 1. Circumferentially prominent wall in the ascending colon and hepatic flexure may be attributed to underdistention or an infectious versus inflammatory colitis. Please correlate clinically. 2. Gastric tube in proper position. No bowel obstruction. No evidence of diverticulitis. 3. Cholelithiasis and/or sludge within the gallbladder. Moderate distention of the gallbladder may be physiologic and/or secondary to dyskinesia. Gallbladder wall thickening is nonspecific and may be secondary to right heart failure, cholecystitis and/or adjacent right upper quadrant inflammatory processes. Please correlate clinically and with right upper quadrant sonogram. 4. Extensive anasarca/body wall edema. Diffuse mesenteric haziness, confluent presacral fluid and free fluid within the pelvis may be secondary to heart failure. Please correlate clinically. 5. An approximately 3.6 x 2.7 cm indeterminant left adrenal gland mass is nonspecific with a broad differential including benign and malignant lesions. 6. Multichamber cardiomegaly with predominant enlargement of the right atrium. Please correlate with echocardiogram. 7. Incompletely imaged layering pleural effusions with airspace opacities in both lung bases. Please correlate with dedicated imaging of the chest. 8. T12 and L4 compression deformities as described above are of indeterminant chronicity. CXR 2 - Impression: NG tube above the diaphragm and needs to be advanced. Other tubes and lines in place. Left perihilar infiltration and left retrocardiac opacity. CXR 2 PM - Impression: NG tube above the diaphragm and needs to be advanced. Other tubes and lines in place. Left perihilar infiltration and left retrocardiac opacity. CXR 04/25 - Impression: Increase in bibasilar opacities and left effusion. Continuing clinical and radiographic evaluation suggested. CXR 04/26 - Impression: Endotracheal tube position as discussed above. The remainder of the study demonstrates no obvious interval change. CXR 04/27 - IMPRESSION: 1. Endotracheal tube placement as described above. 2. No significant change in CHF since 04/26/2017. ASSESSMENT/PLAN: 86 yo F w/ h/o CAD w/ stents, afib on xarelto, HFpEF (EF 67.8%, 2016) and HLD who was sent from her [facility] former's office to ED due to office EKG notable for Afib with RVR w/ rate in 160s. Pt critically ill with MOD, severe menigitis and poor reserve. Currently sedated, intubated. Prognosis remains very poor given multiple underlying comorbities. 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) - Temp 99.7 overnight. BCx's negative; Sputum culture + for yeast like organism - WBC 11.2 -> 11.5 today; will continue to trend - Neurology consulted; recommend repeat CT scan - CSF profile with neutrophilia, low glucose (15), and elevated protein (352). Xanthochromic, PCR presumptively positive for Strep pneumo antigen. Pt recently offered Prevnar vaccine as inpt, however documented that pt refused. 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 - ID consult, recs appreciated - Strep pneumo, legionella urine ag negative - trend WBC, fever - UA negative - Last ABG 7.47//196/22 - consider sedation holiday; currently on propofol - flu negative - BP maintained on levo 15mcg overnight; S[place] gtt started in PM; Monitor for arrhythmias; plan to titrate down on levo gtt #acute on chronic systolic CHF - CT abdomen with diffuse anasarca /; - Pt still with poor peripheral perfusion; UOP 300ml yesterday for 24 hours; Discussion with ICU attending in PM; will order VBG and potentially start inotropic agent; Risks of arrhythmia outweighed by need for improved perfusion and inotrope-assisted diuresis - daily weights, I&O's - Metoprolol 100mg BID; held in setting of septic shock - Plan for intrope assisted diuresis - Monitor closely for arrhythmias on manager film gtt #Afib with RVR, HR in up to 160s today - INR 1.07 today -c/w Amiodarone 400mg PO TID and Metoprolol 100mg PO BID -AC held in setting of elevated INR, sepsis; per cardiology hold off on AC for now - Plan for coumadin/heparin bridging vs. xarelto per cardiology for AC after sepsis resolves; on lovenox now #Transaminitis - LFTs normalized, T bili 0.8 again today - Alk phos continually uptrending. 142 -> 235 - Trend LFTs #Hypophosphatemia- 2.6, resolved - Continue to trend #Hypokalemia - 4.1 today; resolved - trend K; replete as needed - Daily BMPs #SELMA- resolved, cr 0.4 today - Trend Cr - Daily BMPs #HTN -currently borderline hypotensive -hold BP meds #hypothyroidism - c/w Synthroid 75 mcg qd #DVT PPX lovenox daily #FEN: Free water with tube feeds Daily BMP NG feeds per nutrition Full code Dispo to ICU for further management. Prognosis remains poor given age and comorbities. Family continually in communication regarding prognosis and GOC Plan d/w attending, Dr. Carlos A Steele, PGY1 Visit type - Emergency Visit Emergency Visit: Yes ED Registration Date: 04/14/17 Care time: The patient presented to the Emergency Department on the above date and was hospitalized for further evaluation of their emergent condition. - New Patient This patient is new to me today: No - Critical Care Critical Care patient: Yes Total Critical Care Time (in minutes): 35 Critical Care Statement: The care of this patient involved high complexity decision making to prevent further life threatening deterioration of the patient 's condition and/or to evaluate & treat vital organ system(s) failure or risk of failure.
[2017-04-27 06:22] LABS: BASO % 0.1 % (0-2.0); EOS % 0.9 % (0-4.5); HEMATOCRIT 41.4 % (32.4-45.2); HEMOGLOBIN 13.1 GM/dL (10.7-15.3); LYMPH % 3.2 % (8-40); MCH 27.2 pg (25.7-33.7); MCHC 31.6 g/dl (32.0-36.0); MEAN CELL VOLUME 86.3 fl (80-96); MEAN PLT VOLUME 9.2 fl (7.5-11.1); NEUT % 93.8 % (42.8-82.8); PLATELET COUNT 174 K/MM3 (134-434); RDW 18.6 % (11.6-15.6); WHITE BLOOD COUNT 11.5 K/mm3 (4.0-10.0)
[2017-04-27] MEDS: LEVOTHYROXINE NA 75 MCG TABLET (FP) PO SCH (06:24)
[2017-04-27 07:00] LABS: CHLORIDE 99 mmol/L (98-107); POTASSIUM 4.1 mmol/L (3.5-5.1); SODIUM 134 mmol/L (136-145)
[2017-04-27 07:07] LABS: ALBUMIN 1.1 g/dl (3.4-5.0); ALK PHOS 235 U/L (45-117); ANION GAP 11 (8-16); BILIRUBIN,TOTAL 0.8 mg/dL (0.2-1.0); BLOOD UREA NITROGEN 14 mg/dL (7-18); CO2 24 mmol/L (21-32); CREATININE 0.4 mg/dL (0.55-1.02); GLUCOSE,RANDOM 139 mg/dL (74-106); PHOSPHOROUS 2.6 mg/dL (2.5-4.9); SGOT/AST 24 U/L (15-37); SGPT/ALT 19 U/L (12-78); TOT PROT 3.7 g/dl (6.4-8.2)
[2017-04-27 07:40] LABS: CALCIUM 6.2 mg/dL (8.5-10.1)
--- NOTE | 2017-04-27 07:51 | PN ---
Progress Note, Physician Chief Complaint: ID Amp Gentamicin continues Day 5 Intubated pressors - Current Medication List Current Medications: Active Medications Amiodarone HCl (Cordarone -) 400 mg PO BID [facility] Last Admin: 04/26/17 21:22 Dose: 400 mg Enoxaparin Sodium (Lovenox -) 85 mg SQ DAILY [facility] Ampicillin Sodium 2 gm/ Sodium (Chloride) 100 mls @ 200 mls/hr IVPB Q4H-IV [facility] Last Admin: 04/27/17 06:25 Dose: 200 mls/hr Gentamicin Sulfate 30 mg/ (Sodium Chloride) 100.75 mls @ 100.75 mls/hr IVPB Q8H -IV [facility] Last Admin: 04/27/17 02:22 Dose: 100.75 mls/hr Propofol (Diprivan -) 1,000,000 mcg in 100 mls @ 1.546 mls/hr IVPB TITR SIMON; 5 MCG/KG/MIN PRN Reason: Protocol Last Admin: 04/27/17 02:37 Dose: 30 mcg/kg/min, 9.275 mls/hr Famotidine/Sodium Chloride (Pepcid 20 Mg Premixed Ivpb -) 20 mg in 50 mls @ 100 mls/hr IVPB BID [facility] Last Admin: 04/26/17 21:23 Dose: 100 mls/hr Norepinephrine Bitartrate 16, (000 mcg/ Sodium Chloride) 1,000 mls @ 18.75 mls/ hr IV TITR SIMON; 5 MCG/MIN PRN Reason: Protocol Last Admin: 04/26/17 21:22 Dose: 15 mcg/min, 56.25 mls/hr Levothyroxine Sodium (Synthroid -) 75 mcg PO DAILY@0700 [facility] Last Admin: 04/27/17 06:24 Dose: 75 mcg Melatonin (Melatonin) 5 mg PO HS PRN PRN Reason: INSOMNIA Last Admin: 04/19/17 23:05 Dose: 5 mg Metoprolol Tartrate (Lopressor -) 100 mg PO BID [facility] Last Admin: 04/26/17 21:09 Dose: Not Given Potassium Phos/Sodium Phos (Phos-Nak Packet -) 1 packet NGT DAILY [facility] Stop: 04/28/17 09:59 Last Admin: 04/26/17 09:51 Dose: 1 packet Saliva Substitute (Mouthkote Solution -) 1 applic MM DAILY [facility] Last Admin: 04/26/17 09:50 Dose: 1 applic - Objective Vital Signs: Vital Signs Temperature 98.6 F 04/27/17 06:00 Pulse Rate 106 H 04/27/17 06:00 Respiratory Rate 19 04/27/17 07:00 Blood Pressure 105/81 04/27/17 06:00 O2 Sat by Pulse Oximetry (%) 97 04/26/17 19:50 Constitutional: Yes: Well Nourished, No Distress Neck: Yes: Other (CVC line) Cardiovascular: Yes: Regular Rate and Rhythm, S1, S2 Respiratory: Yes: WNL, Regular, CTA Bilaterally Gastrointestinal: Yes: WNL, Normal Bowel Sounds, Soft. 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 Thus far no secondary infection evident. I am confident that the blood cultures and CSF infection the 'same" The monocytosis in the CSF typical for Listeria Plan Continue current therapy as ordered Suraj CHRISTENSEN
--- NOTE | 2017-04-27 09:08 | PN ---
Physical Exam: SUBJECTIVE: Patient seen and examined The patient is an 86 year old female with a history of CAD w/ stents, afib on xarelto, HFpEF (EF 67.8%, 2016) and HLD who initially presented to the hospital for afib with RVR now transferred to the ICU for hypotension, fevers, and listeria sepsis with pneumoccol menigitis. Patient remains on levophed drip. Otherwise no acute events overnight. OBJECTIVE: Vital Signs Period Temp Pulse Resp BP Sys/Gandara Pulse Ox Last 24 Hr 98.6 F-101.2 F 94-119 17-21 83-105/68-81 97 GENERAL: The patient is intubated and sedated in no acute distress. HEAD: Normal with no signs of trauma. EYES: sclera anicteric, conjunctiva clear. No ptosis. ENT: oropharynx clear without exudates, moist mucous membranes. NECK: Trachea midline, full range of motion, supple. LUNGS: Breath sounds equal, clear to auscultation bilaterally, no wheezes, no crackles, no accessory muscle use. HEART: Tachycardic and irregular rhythm, S1, S2 without murmur, rub or gallop. ABDOMEN: Soft, nontender, nondistended, normoactive bowel sounds, no guarding, no rebound, no hepatosplenomegaly, no masses. EXTREMITIES: 2+ pulses, warm, well-perfused, NEUROLOGICAL: gait not observed. PSYCH: Intubated and sedated. SKIN: Warm, dry, normal turgor, no rashes or lesions noted Laboratory Results - last 24 hr 04/26/17 04/26/17 04/27/17 16:15 17:10 05:10 WBC 11.5 H RBC 4.80 Hgb 13.1 Hct 41.4 MCV 86.3 MCH 27.2 MCHC 31.6 L RDW 18.6 H Plt Count 174 D MPV 9.2 Neutrophils % 93.8 H Lymphocytes % 3.2 L Monocytes % 2.0 L Eosinophils % 0.9 Basophils % 0.1 Anticoagulation Therapy No Result Required. Puncture Site Right radial ABG pH 7.47 H ABG pCO2 at Pt Temp 30.9 L ABG pO2 at Pt Temp 196.0 H* ABG HCO3 22.2 ABG O2 Sat (Measured) 99.4 H ABG O2 Content 18.1 ABG Base Excess -0.3 José Miguel Test Positive VBG pH 7.39 POC VBG pCO2 43.8 POC VBG pO2 34.9 Mixed VBG HCO3 25.7 H O2 Delivery Device No Result Required. Oxygen Flow Rate Yes Vent Mode No Result Required. Vent Rate No Result Required. Mechanical Rate No Result Required. Pressure Support Vent No Result Required. Sodium Potassium Chloride Carbon Dioxide Anion Gap BUN Creatinine Creat Clearance w eGFR Random Glucose Calcium Phosphorus Magnesium Total Bilirubin AST ALT Alkaline Phosphatase Total Protein Albumin 04/27/17 05:10 WBC RBC Hgb Hct MCV MCH MCHC RDW Plt Count MPV Neutrophils % Lymphocytes % Monocytes % Eosinophils % Basophils % Anticoagulation Therapy Puncture Site ABG pH ABG pCO2 at Pt Temp ABG pO2 at Pt Temp ABG HCO3 ABG O2 Sat (Measured) ABG O2 Content ABG Base Excess José Miguel Test VBG pH POC VBG pCO2 POC VBG pO2 Mixed VBG HCO3 O2 Delivery Device Oxygen Flow Rate Vent Mode Vent Rate Mechanical Rate Pressure Support Vent Sodium 134 L Potassium 4.1 Chloride 99 Carbon Dioxide 24 Anion Gap 11 BUN 14 Creatinine 0.4 L Creat Clearance w eGFR > 60 Random Glucose 139 H Calcium 6.2 L* Phosphorus 2.6 Magnesium 2.0 Total Bilirubin 0.8 AST 24 ALT 19 Alkaline Phosphatase 235 H Total Protein 3.7 L Albumin 1.1 L Active Medications Generic Name Dose Route Start Last Admin Trade Name Freq PRN Reason Stop Dose Admin Amiodarone HCl 400 mg 04/20/17 10:00 04/26/17 21:22 Cordarone - PO 400 mg BID SIMON Administration Enoxaparin Sodium 85 mg 04/26/17 19:00 Lovenox - SQ DAILY [facility] Ampicillin Sodium 2 gm/ Sodium 100 mls @ 200 mls/hr 04/22/17 12:00 04/27/17 06:25 Chloride IVPB 200 mls/hr Q4H-IV SIMON Administration Gentamicin Sulfate 30 mg/ 100.75 mls @ 100.75 mls/hr 04/22/17 12:00 04/27/17 02:22 Sodium Chloride IVPB 100.75 mls/hr Q8H-IV SIMON Administration Propofol 1,000,000 mcg in 100 mls @ 1.546 mls/hr 04/24/17 18:00 04/27/17 02: 37 Diprivan - IVPB 30 mcg/kg/min TITR SIMON 9.275 mls/hr Protocol Administration 5 MCG/KG/MIN Famotidine/Sodium Chloride 20 mg in 50 mls @ 100 mls/hr 04/26/17 22:00 21:23 Pepcid 20 Mg Premixed Ivpb - IVPB 100 mls/hr BID SIMON Administration Norepinephrine Bitartrate 16, 1,000 mls @ 18.75 mls/hr 04/26/17 20:15 21:22 000 mcg/ Sodium Chloride IV 15 mcg/min TITR SIMON 56.25 mls/hr Protocol Administration 5 MCG/MIN Levothyroxine Sodium 75 mcg 04/15/17 07:00 04/27/17 06:24 Synthroid - PO 75 mcg DAILY@0700 SIMON Administration Melatonin 5 mg 04/18/17 16:54 04/19/17 23:05 Melatonin PO 5 mg HS PRN Administration INSOMNIA Metoprolol Tartrate 100 mg 04/18/17 22:00 04/26/17 21:09 Lopressor - PO Not Given BID SIMON Potassium Phos/Sodium Phos 1 packet 04/26/17 10:00 04/26/17 09:51 Phos-Nak Packet - NGT 04/28/17 09:59 1 packet DAILY SIMON Administration Saliva Substitute 1 applic 04/20/17 17:15 04/26/17 09:50 Mouthkote Solution - MM 1 applic DAILY SIMON Administration ASSESSMENT/PLAN: The patient is an 86 year old female with a history of CAD w/ stents, afib on xarelto, HFpEF (EF 67.8%, 2016) and HLD who initially presented to the hospital for afib with RVR now transferred to the ICU for hypotension, fevers, and listeria sepsis with pneumoccol menigitis. Overall, poor prognosis. NEURO Patient is intubated. -Sedated with propofol. -Will continue to monitor. CV #Hypotension Patient noted to be hypotensive over the weekend and started on pressors with increasing pressor support needed. -Continue levophed and titrate as needed to maintain MAP >65. -Will continue to monitor. #Afib with RVR Patient initially presented with a hr of 160 now rate controlled to 100-110 on amiodarone. Patient on xarelto for anti-coagulation. Cardiology is following. -Continue amidarone per cardiology recs. -Will continue to monitor closely. -Appreciate cardiology recs. #CHF (EF 20%, 2018) Patient was initially being diuriesed, however due to the patient's hypotension , she is no longer on a dieretic agent. -Conservative fluid hydration at the moment. -Will continue to monitor closely. RESP #Respiratory distress Patient noted to have worsening respiratory distress over the weekend and was intubated 1 day ago. -Continue vent settings and ween down as tolerated. -Chest plain film appears to be worsening. -Close monitoring of the patient's O2 saturation. -Will continue to monitor. GI #Elevated Liver Enzymes -Will continue to monitor and trend. Renal No issues currently -Will continue to monitor bun/creatinine. ID #Sepsis Patient noted to be febrile last week with hypotension concerning for sepsis or septic shock. Chest plain film demonstrates bilateral pleural effusions as well as findings concerning for a possible pneumonia. Possible sources of the patient's infection could be pneumonia vs. UTI. Blood cultures and urine cultures were sent. Blood cultures are growing listeria. Lumbar puncture over the weekend was positive for strep pneumo in the CSF concerning for menigitis. We will also cover for listeria as well as pneumoccol menigitis. Patient's urine is growing legionella. -Continue Ampicillin and Gentamycin for aggressive antibiotic coverage. -Continue to manage fever with tylenol. -Serial CXR. -Follow up on blood, CSF and urine cultures. -Will continue to monitor. -ID is follow and appreciate recs. MSK No issues currently FEN/GI -Replete electrolytes PRN, will monitor DISPO: Continue ICU level of care. Visit type - Emergency Visit Emergency Visit: No - New Patient This patient is new to me today: No - Critical Care Critical Care patient: Yes Total Critical Care Time (in minutes): 35 Critical Care Statement: The care of this patient involved high complexity decision making to prevent further life threatening deterioration of the patient 's condition and/or to evaluate & treat vital organ system(s) failure or risk of failure.
[2017-04-27] MEDS ORDERED: PT OWN MED DRAWER 7, Y5N ONE ×4 (09:16→21:25)
[2017-04-27] MEDS: FAMOTIDINE 20 MG/50 ML IVPB 20 MG/50 ML MG IVPB SCH ×2 (09:25→21:36)
[2017-04-27] MEDS: AMIODARONE HCL 200 MG TABLET (FP) PO SCH ×2 (09:27→21:36)
[2017-04-27] MEDS: METOPROLOL TARTRATE 50 MG TABLET (FP) PO SCH ×2 (09:27→21:36)
[2017-04-27] MEDS: LYTES/YERBA SANTA 240 ML BOTTLE MM SCH (09:28)
[2017-04-27] MEDS: NAPH,MB-DB/K PH,MBDB POWDER PACKET NGT SCH (09:28)
--- NOTE | 2017-04-27 09:39 | PN ---
Progress Note, Physician Chief Complaint: Pt remains intubated and sedated. History of Present Illness: Patient is an 86 year old female with a significant past medical history of CAD w/ stents, afib on xarelto, HFpEF (EF 67.8%, 2016) and HLD who presents to the ED for tachycardia. Patient was seen in cardiology clinic today and was found on EKG to be in afib with RVR with a rate of 160. She was subsequently sent to ER for management. Patient currently has no complaints or pain while in the ED. Denies ever having CP/SOB/palpitations. Denies F/C/N/V/D. Reports compliance with all of her medications. Allergies: None Social history: Lives with daughter. No smoking. No alcohol. No illicit drugs. Surgical history: None PMD: Dr Parrish. Food Service Supervisor: Dr. Andino " - Current Medication List Current Medications: Active Medications Amiodarone HCl (Cordarone -) 400 mg PO BID [facility] Last Admin: 04/26/17 21:22 Dose: 400 mg Enoxaparin Sodium (Lovenox -) 85 mg SQ DAILY [facility] Ampicillin Sodium 2 gm/ Sodium (Chloride) 100 mls @ 200 mls/hr IVPB Q4H-IV SIMON Last Admin: 04/27/17 06:25 Dose: 200 mls/hr Gentamicin Sulfate 30 mg/ (Sodium Chloride) 100.75 mls @ 100.75 mls/hr IVPB Q8H -IV SIMON Last Admin: 04/27/17 02:22 Dose: 100.75 mls/hr Propofol (Diprivan -) 1,000,000 mcg in 100 mls @ 1.546 mls/hr IVPB TITR SIMON; 5 MCG/KG/MIN PRN Reason: Protocol Last Admin: 04/27/17 02:37 Dose: 30 mcg/kg/min, 9.275 mls/hr Famotidine/Sodium Chloride (Pepcid 20 Mg Premixed Ivpb -) 20 mg in 50 mls @ 100 mls/hr IVPB BID SIMON Last Admin: 04/26/17 21:23 Dose: 100 mls/hr Norepinephrine Bitartrate 16, (000 mcg/ Sodium Chloride) 1,000 mls @ 18.75 mls/ hr IV TITR SIMON; 5 MCG/MIN PRN Reason: Protocol Last Admin: 04/26/17 21:22 Dose: 15 mcg/min, 56.25 mls/hr Levothyroxine Sodium (Synthroid -) 75 mcg PO DAILY@0700 [facility] Last Admin: 04/27/17 06:24 Dose: 75 mcg Melatonin (Melatonin) 5 mg PO HS PRN PRN Reason: INSOMNIA Last Admin: 04/19/17 23:05 Dose: 5 mg Metoprolol Tartrate (Lopressor -) 100 mg PO BID [facility] Last Admin: 04/26/17 21:09 Dose: Not Given Potassium Phos/Sodium Phos (Phos-Nak Packet -) 1 packet NGT DAILY [facility] Stop: 04/28/17 09:59 Last Admin: 04/26/17 09:51 Dose: 1 packet Saliva Substitute (Mouthkote Solution -) 1 applic MM DAILY [facility] Last Admin: 04/26/17 09:50 Dose: 1 applic - Objective Vital Signs: Vital Signs Temperature 98.6 F 04/27/17 06:00 Pulse Rate 106 H 04/27/17 06:00 Respiratory Rate 19 04/27/17 07:00 Blood Pressure 105/81 04/27/17 06:00 O2 Sat by Pulse Oximetry (%) 97 04/26/17 19:50 Constitutional: Yes: Thin Eyes: Yes: WNL HENT: Yes: WNL Neck: Yes: Decreased ROM Cardiovascular: Yes: Pulse Irregular Respiratory: Yes: Diminished Gastrointestinal: Yes: Soft Genitourinary: No: Anuria Musculoskeletal: Yes: Muscle Weakness Edema: Yes Edema: LLE: 1+, RLE: 1+ Peripheral Pulses WNL: No Peripheral Pulses: Left Doralis Pedis: 1+, Right Dorsalis Pedis: 1+ Neurological: Yes: Weakness Psychiatric: Yes: Other Labs: CBC, BMP 04/27/17 05:10 04/27/17 05:10 INR, PTT INR 1.07 (0.82-1.09) 04/26/17 06:10 Fibrinogen 252.0 mg/dL (238-498) 04/23/17 05:15 - ....Imaging Other: Image Reviewed (telemetry: AF) Problem List - Problems (1) Atrial fibrillation with RVR Assessment/Plan: . repleted Mg and PO4. Continue metoprolol and amiodarone. Code(s): I48.91 - UNSPECIFIED ATRIAL FIBRILLATION (2) Acute on chronic systolic and diastolic heart failure, NYHA class 2 Assessment/Plan: On amiodarone and metoprolol. Problematic giving other agents (e.g. ACEI, RAAS, hydralazine + isordil) at the present time due to renal insufficiency and relative hypotension. ECHO: severely reduced LVEF. F/u BUn/Cr, electrolytes, Is and Os, daily weight. Code(s): I50.43 - ACUTE ON CHRONIC COMBINED SYSTOLIC AND DIASTOLIC HRT FAIL (3) CAD (coronary artery disease) Code(s): I25.10 - ATHSCL HEART DISEASE OF [place] CORONARY ARTERY W/O ANG PCTRS (4) Hypothyroid Assessment/Plan: elevated TSH; free T4 is also mildly elevated. Following thryoid function is especially important when on amiodarone. Code(s): E03.9 - HYPOTHYROIDISM, UNSPECIFIED (5) Renal insufficiency Assessment/Plan: f/u carefully (on furosemide for acute CHF); avoid excessive dehydration. Code(s): N28.9 - DISORDER OF KIDNEY AND URETER, UNSPECIFIED (6) Acute respiratory failure Code(s): J96.00 - ACUTE RESPIRATORY FAILURE, UNSP W HYPOXIA OR HYPERCAPNIA (7) Septic shock Code(s): A41.9 - SEPSIS, UNSPECIFIED ORGANISM; R65.21 - SEVERE SEPSIS WITH SEPTIC SHOCK (8) CHF (congestive heart failure) Code(s): I50.9 - HEART FAILURE, UNSPECIFIED
--- NOTE | 2017-04-27 12:45 | PN ---
Progress Note (short form) - Note Progress Note: pt seen and examined condition unchanged. chart reviewed in detail AFVSS Cor: afib Lungs: Clear to anterior Abd: Soft, Normal bowel sounds, No organomegaly Ext:2+ edema b/l, erythematous neuro: drowsy Last Vital Signs Temp Pulse Resp BP Pulse Ox 98.6 F 122 H 18 109/78 99 04/27/17 10:00 04/27/17 12:00 04/27/17 12:00 04/27/17 12:00 04/27/17 09:00 CBC, BMP 04/27/17 05:10 04/27/17 05:10 Current Medications Generic Name Dose Route Start Last Admin Trade Name Freq PRN Reason Stop Dose Admin Amiodarone HCl 400 mg 04/20/17 10:00 04/27/17 09:27 Cordarone - PO 400 mg BID SIMON Administration Enoxaparin Sodium 85 mg 04/27/17 10:06 Lovenox - SQ DAILY SIMON Ampicillin Sodium 2 gm/ Sodium 100 mls @ 200 mls/hr 04/22/17 12:00 04/27/17 09:26 Chloride IVPB 200 mls/hr Q4H-IV SIMON Administration Gentamicin Sulfate 30 mg/ 100.75 mls @ 100.75 mls/hr 04/22/17 12:00 04/27/17 09:27 Sodium Chloride IVPB 100.75 mls/hr Q8H-IV SIMON Administration Propofol 1,000,000 mcg in 100 mls @ 1.546 mls/hr 04/24/17 18:00 04/27/17 02: 37 Diprivan - IVPB 30 mcg/kg/min TITR SIMON 9.275 mls/hr Protocol Administration 5 MCG/KG/MIN Famotidine/Sodium Chloride 20 mg in 50 mls @ 100 mls/hr 04/26/17 22:00 09:25 Pepcid 20 Mg Premixed Ivpb - IVPB 100 mls/hr BID SIMON Administration Norepinephrine Bitartrate 16, 1,000 mls @ 18.75 mls/hr 04/26/17 20:15 21:22 000 mcg/ Sodium Chloride IV 15 mcg/min TITR SIMON 56.25 mls/hr Protocol Administration 5 MCG/MIN Levothyroxine Sodium 75 mcg 04/15/17 07:00 04/27/17 06:24 Synthroid - PO 75 mcg DAILY@0700 SIMON Administration Melatonin 5 mg 04/18/17 16:54 04/19/17 23:05 Melatonin PO 5 mg HS PRN Administration INSOMNIA Metoprolol Tartrate 100 mg 04/18/17 22:00 04/27/17 09:27 Lopressor - PO Not Given BID SIMON Potassium Phos/Sodium Phos 1 packet 04/26/17 10:00 04/27/17 09:28 Phos-Nak Packet - NGT 04/28/17 09:59 1 packet DAILY SIMON Administration Saliva Substitute 1 applic 04/20/17 17:15 04/27/17 09:28 Mouthkote Solution - MM Not Given DAILY SIMON 86 yo F w/ h/o CAD w/ stents, afib on xarelto, HFpEF (EF 67.8%, 2016) and HLD who was 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 sepsis -- listeria meningitis/bacteremia On ampicillin/gentamicin coagulopathy--due to sepsis/CHF/xeralto/vit. K def--resolved a/c --per cardiology monitor CBC/platelets will follow prn
--- NOTE | 2017-04-27 12:52 | PN ---
Teaching Attending Note Name of Resident: Chester Zavala ATTENDING PHYSICIAN STATEMENT I saw and evaluated the patient. I reviewed the resident's note and discussed the case with the resident. I agree with the resident's findings and plan as documented. SUBJECTIVE: Patient seen and examined in the ICU. Remains intubated and poorly responsive. Remains on NE drip for hemodynamic support. OBJECTIVE: Intake & Output 04/24/17 04/25/17 04/26/17 04/27/17 23:59 23:59 23:59 23:59 Intake Total 2330 3842.4 3290 1787.2 Output Total 900 300 700 600 Balance 1430 3542.4 2590 1187.2 Weight 113 lb 9.6 oz 124 lb 128 lb 1.6 oz 132 lb 3.2 oz Last Vital Signs Temp Pulse Resp BP Pulse Ox 98.6 F 122 H 18 109/78 99 04/27/17 10:00 04/27/17 12:00 04/27/17 12:00 04/27/17 12:00 04/27/17 09:00 Active Medications Amiodarone HCl (Cordarone -) 400 mg PO BID [facility] Last Admin: 04/27/17 09:27 Dose: 400 mg Enoxaparin Sodium (Lovenox -) 85 mg SQ DAILY [facility] Ampicillin Sodium 2 gm/ Sodium (Chloride) 100 mls @ 200 mls/hr IVPB Q4H-IV SIMON Last Admin: 04/27/17 09:26 Dose: 200 mls/hr Gentamicin Sulfate 30 mg/ (Sodium Chloride) 100.75 mls @ 100.75 mls/hr IVPB Q8H -IV SIMON Last Admin: 04/27/17 09:27 Dose: 100.75 mls/hr Propofol (Diprivan -) 1,000,000 mcg in 100 mls @ 1.546 mls/hr IVPB TITR SIMON; 5 MCG/KG/MIN PRN Reason: Protocol Last Admin: 04/27/17 02:37 Dose: 30 mcg/kg/min, 9.275 mls/hr Famotidine/Sodium Chloride (Pepcid 20 Mg Premixed Ivpb -) 20 mg in 50 mls @ 100 mls/hr IVPB BID SIMON Last Admin: 04/27/17 09:25 Dose: 100 mls/hr Norepinephrine Bitartrate 16, (000 mcg/ Sodium Chloride) 1,000 mls @ 18.75 mls/ hr IV TITR SIMON; 5 MCG/MIN PRN Reason: Protocol Last Admin: 04/26/17 21:22 Dose: 15 mcg/min, 56.25 mls/hr Levothyroxine Sodium (Synthroid -) 75 mcg PO DAILY@0700 [facility] Last Admin: 04/27/17 06:24 Dose: 75 mcg Melatonin (Melatonin) 5 mg PO HS PRN PRN Reason: INSOMNIA Last Admin: 04/19/17 23:05 Dose: 5 mg Metoprolol Tartrate (Lopressor -) 100 mg PO BID [facility] Last Admin: 04/27/17 09:27 Dose: Not Given Potassium Phos/Sodium Phos (Phos-Nak Packet -) 1 packet NGT DAILY [facility] Stop: 04/28/17 09:59 Last Admin: 04/27/17 09:28 Dose: 1 packet Saliva Substitute (Mouthkote Solution -) 1 applic MM DAILY [facility] Last Admin: 04/27/17 09:28 Dose: Not Given Gen: intubated, poorly responsive Heart: tachycardic, regular Lung: bilateral rhonchi Abd: soft, nontender Ext: + edema Laboratory Results - last 24 hr 04/26/17 04/26/17 04/27/17 16:15 17:10 05:10 WBC 11.5 H RBC 4.80 Hgb 13.1 Hct 41.4 MCV 86.3 MCH 27.2 MCHC 31.6 L RDW 18.6 H Plt Count 174 D MPV 9.2 Neutrophils % 93.8 H Lymphocytes % 3.2 L Monocytes % 2.0 L Eosinophils % 0.9 Basophils % 0.1 Anticoagulation Therapy No Result Required. Puncture Site Right radial ABG pH 7.47 H ABG pCO2 at Pt Temp 30.9 L ABG pO2 at Pt Temp 196.0 H* ABG HCO3 22.2 ABG O2 Sat (Measured) 99.4 H ABG O2 Content 18.1 ABG Base Excess -0.3 José Miguel Test Positive VBG pH 7.39 POC VBG pCO2 43.8 POC VBG pO2 34.9 Mixed VBG HCO3 25.7 H O2 Delivery Device No Result Required. Oxygen Flow Rate Yes Vent Mode No Result Required. Vent Rate No Result Required. Mechanical Rate No Result Required. Pressure Support Vent No Result Required. Sodium Potassium Chloride Carbon Dioxide Anion Gap BUN Creatinine Creat Clearance w eGFR Random Glucose Calcium Phosphorus Magnesium Total Bilirubin AST ALT Alkaline Phosphatase Total Protein Albumin 04/27/17 05:10 WBC RBC Hgb Hct MCV MCH MCHC RDW Plt Count MPV Neutrophils % Lymphocytes % Monocytes % Eosinophils % Basophils % Anticoagulation Therapy Puncture Site ABG pH ABG pCO2 at Pt Temp ABG pO2 at Pt Temp ABG HCO3 ABG O2 Sat (Measured) ABG O2 Content ABG Base Excess José Miguel Test VBG pH POC VBG pCO2 POC VBG pO2 Mixed VBG HCO3 O2 Delivery Device Oxygen Flow Rate Vent Mode Vent Rate Mechanical Rate Pressure Support Vent Sodium 134 L Potassium 4.1 Chloride 99 Carbon Dioxide 24 Anion Gap 11 BUN 14 Creatinine 0.4 L Creat Clearance w eGFR > 60 Random Glucose 139 H Calcium 6.2 L* Phosphorus 2.6 Magnesium 2.0 Total Bilirubin 0.8 AST 24 ALT 19 Alkaline Phosphatase 235 H Total Protein 3.7 L Albumin 1.1 L ASSESSMENT AND PLAN: Acute Hypoxic Respiratory Failure Listeria Meningitis/Bacteremia Acute Colitis Septic Shock Atrial Fibrillation with RVR Acute Kidney Injury improving Lactic Acidosis resolved Elevated LFTs resolved Acute on Chronic Diastolic Heart Failure Coagulopathy improved Hypothyroidism - continue antibiotics per ID - titrate pressors to maintain MAP >65 - monitor urine output, creatinine - rate control - anticoagulation, target INR 2-3 - replete lytes - O2 to keep SpO2 >90% - continue ICU monitoring - guarded prognosis - Will need family meeting to discuss GOC Dr Laguna Critical care time spent in reviewing chart, evaluating patient and formulating plan 36 min
--- NOTE | 2017-04-27 13:20 | PN ---
Teaching Attending Note Name of Resident: Luisito Steele ATTENDING PHYSICIAN STATEMENT I saw and evaluated the patient. I reviewed the resident's note and discussed the case with the resident. I agree with the resident's findings and plan as documented. SUBJECTIVE:sedated/intubated OBJECTIVE: Last Vital Signs Temp Pulse Resp BP Pulse Ox 98.6 F 122 H 18 109/78 99 04/27/17 10:00 04/27/17 12:00 04/27/17 12:00 04/27/17 12:00 04/27/17 09:00 Intake & Output 04/24/17 04/25/17 04/26/17 04/27/17 23:59 23:59 23:59 23:59 Intake Total 2330 3842.4 3290 1787.2 Output Total 900 300 700 600 Balance 1430 3542.4 2590 1187.2 Weight 113 lb 9.6 oz 124 lb 128 lb 1.6 oz 132 lb 3.2 oz General sedated, flinches to pain, +gag reflex HEENT icteric CV S1 S2 irregular irregular Lungs Coarse breath sounds Abdomen soft NT/ND Extremities 2+ B/L pitting edema, cool and mottled toes with cyanosis, +TP pulse with doppler ASSESSMENT AND PLAN: 86yo F with PMH AFib on xarelto, CAD s/p stents, hypothyroid, Systolic CHF, dyslipidemia 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 on levo 15mcg. poor UOP. on Ampicillin/Gent day 5. Gent trough acceptable. believe strep PCR is false positive as BCx is growing listeria and unlikely to have 2 different organisms. spoke with ID. ID on board 2. Acute hypoxic respiratory failure from septic shock and likely systolic HF exacerbation from volume resuscitation- on full vent support. vent management from ICU team. propofol for sedation. vacation sedations 3. Afib with RVR- overall improved. metoprolol on hold due to hypotension from septic shock. on amio. cardio on board. Xarelto on hold due to coagulopathy 4. Acute Systolic Heart failure exacerbation- unable to diuresis in setting of septic shock. continues to be volume overloaded. unable to give lasix. will need to speak with cardio about ionotropic support to assist. 5. Coagulopathy, elevated INR, suspect from hepatic congestion/amiodarone- resolved 6. Acute transaminitis-likely congestive hepatopathy. now resolved 7. Hypothyoridism 8. SELMA, prerenal likely from CKD on her CKD (from poor EF)- resolved 9. Hypokalemia- resolved 10. Pseduohypocalcemia- Corrected CA 8.5 11. Severe hypophosphatemia- resolved 12. DVT ppx- heparin sq on hold due to coagulopathy. if INR remains stable will consider starting hep sq. 13. Poor overall prognosis. will need to speak with HCP for goals of care. total critical care time spent 38 min.
[2017-04-27] MEDS ORDERED: DOBUTAMINE 250 MG/D5W - 250,000 MCG/250 ML INFUS.BAG ONE (14:58)
[2017-04-27] MEDS: DOBUTAMINE HCL 250,000 MCG in SODIUM CHLORIDE 230 ML IV SCH (15:07)
[2017-04-27] MEDS ORDERED: NOREPINEPHRINE BITARTRATE 4 MG/4 ML ML IV ONE (17:53)
[2017-04-27] MEDS ORDERED: dilTIAZem HCL 50 MG/10 ML - 10 ML VIAL IVPUSH ONE (19:22)
[2017-04-27] MEDS ORDERED: AMIODARONE HCL 150 MG/3 ML VIAL ONE (20:22)
[2017-04-27] MEDS ORDERED: AMIODARONE HCL INJECTION 150 MG in DEXTROSE 5%-WATER - 97 ML IVPB ONE (20:34)
[2017-04-27] MEDS ORDERED: AMIODARONE HCL 150 MG/3 ML VIAL IVPB ONE (20:45)
[2017-04-27] MEDS: NOREPINEPHRINE BITARTRATE 16,000 MCG in SODIUM CHLORIDE 0.45% 984 ML IV SCH (21:18)
[2017-04-27] MEDS ORDERED: AMIODARONE IN DEXTROSE,ISO-OSM 360 MG/200 ML BAG IVPB SCH (22:00)
[2017-04-28] MEDS: SODIUM CHLORIDE IVPB SCH ×3 (01:29→18:11)
[2017-04-28] MEDS: GENTAMICIN IVPB SCH ×3 (01:29→18:11)
[2017-04-28] MEDS: AMPICILLIN - 2 GM in SODIUM CHLORIDE 100 ML IVPB SCH ×6 (01:44→21:39)
--- NOTE | 2017-04-28 05:53 | PN ---
Physical Exam: SUBJECTIVE: Patient seen and examined by me this AM - Afebrile. Started on PROCESS EXPERT gtt yesterday. Improved perfusion of extremities noted on PE in late PM. No growth from urine or blood cultures. Remains on Amp/ Gent high dose for abx coverage. - Tachy overnight, bolused amiodarone; likely secondary to PROCESS EXPERT gtt. Pt with feeding tube coiled in mouth overnight (one episode of emesis), removed and replaced with confirmation on CXR. FIO2 decreased to 40%. ABG 7.51/29/103/23; Pt suctioned during pre-rounds OBJECTIVE: Vital Signs Intake & Output 04/25/17 04/26/17 04/27/17 04/28/17 23:59 23:59 23:59 23:59 Intake Total 3842.4 3290 4072.2 Output Total 599 912 8871 Balance 3542.4 2590 3072.2 Weight 56.245 kg 58.105 kg 59.965 kg Period Temp Pulse Resp BP Sys/Gandara Pulse Ox Last 24 Hr 98.2 F-98.6 F 106-139 12-33 90-117/61-81 99 GENERAL: Sedated, intubated. HEAD: NG tube in place. Normal with no signs of trauma. EYES: Pupils pinpoint, reactive to light; sclera anicteric. No lid lag. EARS, NOSE, THROAT: Ears normal, nares patent. ETT tube at lip. Moist mucous membranes. NECK: No lymphadenopathy, or masses. LUNGS: Trace upper airway congestion, decreased basilar breath sounds. Mechanical breath sounds diffusely. No accessory muscle use. HEART: Irregularly Irregular, normal S1 and S2 without murmur, rub or gallop. ABDOMEN: Soft, nontender, not distended, normoactive bowel sounds, no guarding, no rebound, no masses. No hepatomegaly or splenomegaly. MUSCULOSKELETAL: Normal range of motion at all joints. No bony deformities or tenderness. No CVA tenderness. UPPER EXTREMITIES: 1+ radial pulses, WWP. No cyanosis. No clubbing. 2+ peripheral edema BL. LOWER EXTREMITIES: 2+ pitting edema BL to knees. 1+ DP, PT pulses BL. No calf tenderness. BL superficial varicose veins on anterior shins. NEUROLOGICAL: Nonverbal, sedated. Withdraws to pain, deep abdominal palpation. Brainstem reflexes intact. Negative Babinskis BL. SKIN: Warm, dry, normal turgor, no rashes or lesions noted, normal capillary refill. Laboratory Results - last 24 hr CBC, BMP 04/28/17 05:15 04/28/17 05:15 04/27/17 05:10 04/27/17 05:10 04/27/17 04/27/17 05:10 05:10 WBC 11.5 H RBC 4.80 Hgb 13.1 Hct 41.4 MCV 86.3 MCH 27.2 MCHC 31.6 L RDW 18.6 H Plt Count 174 D MPV 9.2 Neutrophils % 93.8 H Lymphocytes % 3.2 L Monocytes % 2.0 L Eosinophils % 0.9 Basophils % 0.1 Sodium 134 L Potassium 4.1 Chloride 99 Carbon Dioxide 24 Anion Gap 11 BUN 14 Creatinine 0.4 L Creat Clearance w eGFR > 60 Random Glucose 139 H Calcium 6.2 L* Phosphorus 2.6 Magnesium 2.0 Total Bilirubin 0.8 AST 24 ALT 19 Alkaline Phosphatase 235 H Total Protein 3.7 L Albumin 1.1 L Active Medications Generic Name Dose Route Start Last Admin Trade Name Freq PRN Reason Stop Dose Admin Amiodarone HCl 400 mg 04/20/17 10:00 04/27/17 21:36 Cordarone - PO 400 mg BID SIMON Administration Enoxaparin Sodium 85 mg 04/27/17 10:06 Lovenox - SQ DAILY SIMON Ampicillin Sodium 2 gm/ Sodium 100 mls @ 200 mls/hr 04/22/17 12:00 04/28/17 05:46 Chloride IVPB 200 mls/hr Q4H-IV SIMON Administration Gentamicin Sulfate 30 mg/ 100.75 mls @ 100.75 mls/hr 04/22/17 12:00 04/28/17 01:29 Sodium Chloride IVPB 100.75 mls/hr Q8H-IV SIMON Administration Propofol 1,000,000 mcg in 100 mls @ 1.546 mls/hr 04/24/17 18:00 04/27/17 21: 35 Diprivan - IVPB 30 mcg/kg/min TITR SIMON 9.275 mls/hr Protocol Administration 5 MCG/KG/MIN Famotidine/Sodium Chloride 20 mg in 50 mls @ 100 mls/hr 04/26/17 22:00 21:36 Pepcid 20 Mg Premixed Ivpb - IVPB 100 mls/hr BID SIMON Administration Norepinephrine Bitartrate 16, 1,000 mls @ 18.75 mls/hr 04/26/17 20:15 21:18 000 mcg/ Sodium Chloride IV 15 mcg/min TITR SIMON 56.25 mls/hr Protocol Administration 5 MCG/MIN Dobutamine HCl 250,000 mcg/ 250 mls @ 17.98 mls/hr 04/27/17 14:15 04/27/17 15 :07 Sodium Chloride IV 5 mcg/kg/min TITR SIMON 17.98 mls/hr Protocol Administration 5 MCG/KG/MIN Levothyroxine Sodium 75 mcg 04/15/17 07:00 04/27/17 06:24 Synthroid - PO 75 mcg DAILY@0700 SIMON Administration Melatonin 5 mg 04/18/17 16:54 04/19/17 23:05 Melatonin PO 5 mg HS PRN Administration INSOMNIA Metoprolol Tartrate 100 mg 04/18/17 22:00 04/27/17 21:36 Lopressor - PO Not Given BID SIMON Potassium Phos/Sodium Phos 1 packet 04/26/17 10:00 04/27/17 09:28 Phos-Nak Packet - NGT 04/28/17 09:59 1 packet DAILY SIMON Administration Saliva Substitute 1 applic 04/20/17 17:15 04/27/17 09:28 Mouthkote Solution - MM Not Given DAILY [facility] Microbiology 04/20/17 09:15 Blood - Peripheral Venous Blood Culture - Preliminary Listeria Monocytogenes 04/25/17 11:00 Sputum - Endotrachea Suction/Ventilator Gram Stain - Final 04/25/17 11:00 Sputum - Endotrachea Suction/Ventilator Sputum Culture - Final Yeast Like Organism 04/22/17 11:34 Blood - Peripheral Venous Blood Culture - Final NO GROWTH AFTER 5 DAYS INCUBATION 04/25/17 11:15 Blood - Peripheral Venous Blood Culture - Preliminary NO GROWTH OBTAINED AFTER 48 HOURS, INCUBATION TO CONTINUE FOR 3 DAYS. 04/22/17 11:29 Blood - Peripheral Venous Blood Culture - Final NO GROWTH AFTER 5 DAYS INCUBATION 04/25/17 09:35 Blood - Peripheral Venous Blood Culture - Preliminary NO GROWTH OBTAINED AFTER 48 HOURS, INCUBATION TO CONTINUE FOR 3 DAYS. 04/22/17 16:45 Cerebral Spinal Fluid - Lumbar Puncture AFB Smear Concentration - Final 04/25/17 11:18 Urine - Urine Judge Urine Culture - Final NO GROWTH OBTAINED 04/22/17 16:45 Cerebral Spinal Fluid - Lumbar Puncture Gram Stain - Final 04/22/17 16:45 Cerebral Spinal Fluid - Lumbar Puncture CSF Culture - Final NO GROWTH AFTER 48 HOURS INCUBATION 04/20/17 08:30 Blood - Peripheral Venous Blood Culture - Final Listeria Monocytogenes 04/23/17 10:05 Urine For Antigen Detection Legionella Antigen - Final 04/23/17 10:05 Urine For Antigen Detection Streptococcus pneumoniae Antigen (M - Final 04/22/17 16:45 Cerebral Spinal Fluid - Lumbar Puncture Streptococcus pneumoniae Antigen (M - Final 04/18/17 08:00 Blood - Peripheral Venous Blood Culture - Final NO GROWTH AFTER 5 DAYS INCUBATION 04/18/17 08:00 Blood - Peripheral Venous Blood Culture - Final NO GROWTH AFTER 5 DAYS INCUBATION 04/20/17 11:05 Urine - Urine - Catheterized Urine Culture - Final NO GROWTH OBTAINED 04/20/17 07:55 Nasopharyngeal Swab Influenza Types A,B Antigen (SÁNCHEZ) - Final 04/20/17 07:55 Nasopharyngeal Swab - Final 04/15/17 04:30 Nasopharyngeal Swab Influenza Types A,B Antigen (SÁNCHEZ) - Final 04/15/17 04:30 Nasopharyngeal Swab - Final Prior echo in 2016 -> pulm htn, severe TR, EF ~67%, dilated atria Echo 02/10 - LVEF reduced in setting of afib with RVR, moderate MR, moderate TR , RV pressure 40-50, LAE Persantine stress test 02/14 - relatively unremarkable with minimal ischemic changes. EKG 04/14 - Afib w/ RVR, no ST changes, TWI in lateral leads, Rate 164 CXR 04/14 - Cardiomegaly, mild congestion, BL pleural effusions ABdominal U/S 04/16 - R pleural effusion; fatty infiltrates of liver; atrophic kidneys with no evidence of hydronephrosis EKG 04/17 - Afib w/ RVR. rate 110, NAD, QTC 446 CXR 04/18 - no change CT head 04/19 - no acute bleed or mass effect; mild atropy EKG 04/19 - Afib/flutter, rate of 106, NAD, QTC 470, no TW changes CXR 04/20 - Right pleural effusion with compressive atelectasis. Elevated left diaphragm. Questionable left pleural effusion. No pneumothorax is seen CXR 04/21 - Since the prior study of 04/20/2017, the feeding tube is been inserted and the tip is in the left upper quadrant/stomach. The patient is rotated to the right. There is a large heart, unfolded aorta and some bibasilar changes. Correlation recommended. CXR /3 - Since prior study of 04/21/2017, the feeding tube remains in place. There appears to be a progressive left infiltrate with fluid and/or atelectasis. There is a large heart with sclerotic knob. Correlation recommended. Ab/pelvis CT 04/21 - Impression: 1. Circumferentially prominent wall in the ascending colon and hepatic flexure may be attributed to underdistention or an infectious versus inflammatory colitis. Please correlate clinically. 2. Gastric tube in proper position. No bowel obstruction. No evidence of diverticulitis. 3. Cholelithiasis and/or sludge within the gallbladder. Moderate distention of the gallbladder may be physiologic and/or secondary to dyskinesia. Gallbladder wall thickening is nonspecific and may be secondary to right heart failure, cholecystitis and/or adjacent right upper quadrant inflammatory processes. Please correlate clinically and with right upper quadrant sonogram. 4. Extensive anasarca/body wall edema. Diffuse mesenteric haziness, confluent presacral fluid and free fluid within the pelvis may be secondary to heart failure. Please correlate clinically. 5. An approximately 3.6 x 2.7 cm indeterminant left adrenal gland mass is nonspecific with a broad differential including benign and malignant lesions. 6. Multichamber cardiomegaly with predominant enlargement of the right atrium. Please correlate with echocardiogram. 7. Incompletely imaged layering pleural effusions with airspace opacities in both lung bases. Please correlate with dedicated imaging of the chest. 8. T12 and L4 compression deformities as described above are of indeterminant chronicity. CXR 2/5 - Impression: NG tube above the diaphragm and needs to be advanced. Other tubes and lines in place. Left perihilar infiltration and left retrocardiac opacity. CXR 2/5 PM - Impression: NG tube above the diaphragm and needs to be advanced. Other tubes and lines in place. Left perihilar infiltration and left retrocardiac opacity. CXR 2/6 - Impression: Increase in bibasilar opacities and left effusion. Continuing clinical and radiographic evaluation suggested. CXR 04/26 - Impression: Endotracheal tube position as discussed above. The remainder of the study demonstrates no obvious interval change. CXR 04/27 - IMPRESSION: 1. Endotracheal tube placement as described above. 2. No significant change in CHF since 04/26/2017. CXR 04/28 - IMPRESSION: No significant change with NG tube placement as described above. Subsequently, a single frontal portable projection of the chest at 7:33 AM is submitted. Since a prior study of earlier in the day, there has been no significant change. An endotracheal tube, right-sided triple-lumen catheter and nasogastric tube remain in situ. The heart size remains enlarged with residual pulmonary vascular congestion and moderate bilateral pleural effusions. 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 Pt remains critically ill with MOD, severe menigitis and poor reserve. Currently sedated, intubated. Prognosis remains very poor given multiple underlying comorbities. 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 BCx's negative; Sputum culture + for yeast like organism - WBC 11.5-> 11.9 today; will continue to trend - Neurology aware, following - CSF profile with neutrophilia, low glucose (15), and elevated protein (352). Xanthochromic, PCR presumptively positive for Strep pneumo antigen. Pt recently offered Prevnar vaccine as inpt, however documented that pt refused. 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 - ID consult, recs appreciated - Strep pneumo, legionella urine ag negative - trend WBC, fever - UA negative - consider sedation holiday to assess mental status; Currently on propofol - flu negative - levo 9mcg; PROCESS EXPERT gtt 3mcg; monitor for tachyarrhythmias; continue pressor support #hypoxic respiratory failure - secondary to sepsis, CHF - ABG 7.51/29/103/23 this AM - Vent support; sedated, intubated; FIO2 decreased to 40% yesterday; pt satting high 90s - CXR with worsening BL congestion, large BL pleural effusions #acute on chronic systolic CHF - CT abdomen with diffuse anasarca on 04/21; - Pt with improved peripheral perfusion; Increased UOP 1L yesterday - daily weights, I&O's - Metoprolol 100mg BID; held in setting of septic shock - Started on PROCESS EXPERT gtt yesterday; decreased to 3mcg as pt tachy overnight - Monitor closely for arrhythmias 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 xarelto per cardiology after pt stabilizes #Transaminitis - LFTs normalized, T bili 0.9 today - Alk phoss stable at 233 today - Trend LFTs #Hypophosphatemia- 2.5 today, resolved - Continue to trend #Hypokalemia - 4.5 today; resolved - trend K; replete as needed - Daily BMPs #SELMA- resolved, cr 0.4 today - Trend Cr - Daily BMPs #HTN -hold BP meds #hypothyroidism - c/w Synthroid 75 mcg qd #DVT PPX lovenox daily #FEN: Free water with tube feeds Daily BMP NG feeds per nutrition Full code Dispo to ICU for further management. Prognosis poor. Continue GOC with family. Plan d/w attending, Dr. Carlos A Steele, PGY1 Visit type - Emergency Visit Emergency Visit: Yes ED Registration Date: 04/14/17 Care time: The patient presented to the Emergency Department on the above date and was hospitalized for further evaluation of their emergent condition. - New Patient This patient is new to me today: No - Critical Care Critical Care patient: Yes Total Critical Care Time (in minutes): 35 Critical Care Statement: The care of this patient involved high complexity decision making to prevent further life threatening deterioration of the patient 's condition and/or to evaluate & treat vital organ system(s) failure or risk of failure.
[2017-04-28 06:13] LABS: BASO % 0.1 % (0-2.0); EOS % 0.1 % (0-4.5); HEMATOCRIT 38.5 % (32.4-45.2); HEMOGLOBIN 12.5 GM/dL (10.7-15.3); LYMPH % 2.3 % (8-40); MCH 27.6 pg (25.7-33.7); MCHC 32.5 g/dl (32.0-36.0); MEAN CELL VOLUME 85.2 fl (80-96); MEAN PLT VOLUME 8.6 fl (7.5-11.1); NEUT % 95.5 % (42.8-82.8); PLATELET COUNT 168 K/MM3 (134-434); RBC 4.52 M/mm3 (3.60-5.2); RDW 18.1 % (11.6-15.6); WHITE BLOOD COUNT 11.9 K/mm3 (4.0-10.0)
[2017-04-28 06:40] LABS: ALK PHOS 233 U/L (45-117); ANION GAP 9 (8-16); BILIRUBIN,TOTAL 0.9 mg/dL (0.2-1.0); BLOOD UREA NITROGEN 15 mg/dL (7-18); CHLORIDE 101 mmol/L (98-107); CO2 23 mmol/L (21-32); CREATININE 0.4 mg/dL (0.55-1.02); GLUCOSE,RANDOM 137 mg/dL (74-106); PHOSPHOROUS 2.5 mg/dL (2.5-4.9); SGPT/ALT 18 U/L (12-78); SODIUM 133 mmol/L (136-145); TOT PROT 3.7 g/dl (6.4-8.2)
[2017-04-28] MEDS: LEVOTHYROXINE NA 75 MCG TABLET (FP) PO SCH (06:40)
[2017-04-28 06:55] LABS: ARTERIAL BLD GAS O2 SATURATION 98.1 % (90-98.9); ARTERIAL BLOOD GAS BASE EXCESS 1.4 meq/l (-2-2); ARTERIAL BLOOD GAS PCO2 29.4 mmHg (35-45); ARTERIAL BLOOD GAS pH 7.51 (7.35-7.45)
[2017-04-28 07:15] LABS: ALLENS TEST POSITIVE
[2017-04-28 07:32] LABS: MAGNESIUM 1.8 mg/dL (1.8-2.4); POTASSIUM 4.5 mmol/L (3.5-5.1); SGOT/AST 36 U/L (15-37)
--- NOTE | 2017-04-28 07:39 | PN ---
Progress Note, Physician Chief Complaint: ID Amp and Gent Intubated - Current Medication List Current Medications: Active Medications Amiodarone HCl (Cordarone -) 400 mg PO BID [facility] Last Admin: 04/27/17 21:36 Dose: 400 mg Enoxaparin Sodium (Lovenox -) 85 mg SQ DAILY [facility] Ampicillin Sodium 2 gm/ Sodium (Chloride) 100 mls @ 200 mls/hr IVPB Q4H-IV [facility] Last Admin: 04/28/17 05:46 Dose: 200 mls/hr Gentamicin Sulfate 30 mg/ (Sodium Chloride) 100.75 mls @ 100.75 mls/hr IVPB Q8H -IV [facility] Last Admin: 04/28/17 01:29 Dose: 100.75 mls/hr Propofol (Diprivan -) 1,000,000 mcg in 100 mls @ 1.546 mls/hr IVPB TITR SIMON; 5 MCG/KG/MIN PRN Reason: Protocol Last Admin: 04/27/17 21:35 Dose: 30 mcg/kg/min, 9.275 mls/hr Famotidine/Sodium Chloride (Pepcid 20 Mg Premixed Ivpb -) 20 mg in 50 mls @ 100 mls/hr IVPB BID [facility] Last Admin: 04/27/17 21:36 Dose: 100 mls/hr Norepinephrine Bitartrate 16, (000 mcg/ Sodium Chloride) 1,000 mls @ 18.75 mls/ hr IV TITR SIMON; 5 MCG/MIN PRN Reason: Protocol Last Admin: 04/27/17 21:18 Dose: 15 mcg/min, 56.25 mls/hr Dobutamine HCl 250,000 mcg/ (Sodium Chloride) 250 mls @ 17.98 mls/hr IV TITR SIMON; 5 MCG/KG/MIN PRN Reason: Protocol Last Admin: 04/27/17 15:07 Dose: 5 mcg/kg/min, 17.98 mls/hr Levothyroxine Sodium (Synthroid -) 75 mcg PO DAILY@0700 [facility] Last Admin: 04/28/17 06:40 Dose: 75 mcg Melatonin (Melatonin) 5 mg PO HS PRN PRN Reason: INSOMNIA Last Admin: 04/19/17 23:05 Dose: 5 mg Metoprolol Tartrate (Lopressor -) 100 mg PO BID [facility] Last Admin: 04/27/17 21:36 Dose: Not Given Potassium Phos/Sodium Phos (Phos-Nak Packet -) 1 packet NGT DAILY SIMON Stop: 04/28/17 09:59 Last Admin: 04/27/17 09:28 Dose: 1 packet Saliva Substitute (Mouthkote Solution -) 1 applic MM DAILY SIMON Last Admin: 04/27/17 09:28 Dose: Not Given - Objective Vital Signs: Vital Signs Temperature 98.4 F 04/28/17 02:00 Pulse Rate 112 H 04/28/17 04:00 Respiratory Rate 22 04/28/17 06:25 Blood Pressure 102/68 04/28/17 04:00 O2 Sat by Pulse Oximetry (%) 99 04/27/17 09:00 Cardiovascular: Yes: Regular Rate and Rhythm, Pulse Irregular, S1, S2 Respiratory: Yes: WNL, Regular, CTA Bilaterally, Diminished Gastrointestinal: Yes: WNL, Normal Bowel Sounds, Soft. 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 04/25/17 09:35 Blood - Peripheral Venous Blood Culture - Preliminary NO GROWTH OBTAINED AFTER 48 HOURS, INCUBATION TO CONTINUE FOR 3 DAYS. Laboratory Tests 04/27/17 04/28/17 05:10 05:15 WBC 11.9 H Hgb 12.5 Hct 38.5 Plt Count 168 Creatinine 0.4 L Creat Clearance w eGFR > 60 Total Bilirubin 0.8 AST 24 ALT 19 Alkaline Phosphatase 235 H Assessment Listeria Monocytogenes bacteremia with meningitis Respiratory failure Acute and chronic CHF Atrial fibrillation Plan Continue antibiotics moniter lytes BUN CR GENT TROUGH Day 6 therapy Suraj CHRISTENSEN
[2017-04-28 08:01] LABS: CALCIUM 5.8 mg/dL (8.5-10.1)
--- NOTE | 2017-04-28 08:11 | PN ---
Physical Exam: SUBJECTIVE: Patient seen and examined The patient is an 86 year old female with a history of CAD w/ stents, afib on xarelto, HFpEF (EF 67.8%, 2016) and HLD who initially presented to the hospital for afib with RVR now transferred to the ICU for hypotension, fevers, and listeria sepsis with pneumoccol menigitis. Patient had her NG tube replaced overnight after an episode of vomiting. Otherwise no other acute events. OBJECTIVE: Vital Signs Period Temp Pulse Resp BP Sys/Gandara Pulse Ox Last 24 Hr 98.2 F-98.6 F 112-139 12-33 90-117/61-78 99 GENERAL: The patient is intubated and sedated in no acute distress. HEAD: Normal with no signs of trauma. EYES: sclera anicteric, conjunctiva clear. No ptosis. ENT: oropharynx clear without exudates, moist mucous membranes. NECK: Trachea midline, full range of motion, supple. LUNGS: Breath sounds equal, clear to auscultation bilaterally, no wheezes, no crackles, no accessory muscle use. HEART: Tachycardic and irregular rhythm, S1, S2 without murmur, rub or gallop. ABDOMEN: Soft, nontender, nondistended, normoactive bowel sounds, no guarding, no rebound, no hepatosplenomegaly, no masses. EXTREMITIES: 2+ pulses, warm, well-perfused, 2+ pitting edema NEUROLOGICAL: gait not observed. PSYCH: Intubated and sedated. SKIN: Warm, dry, normal turgor, no rashes or lesions noted Laboratory Results - last 24 hr 04/28/17 04/28/17 04/28/17 05:15 05:15 06:00 WBC 11.9 H RBC 4.52 Hgb 12.5 Hct 38.5 MCV 85.2 MCH 27.6 MCHC 32.5 RDW 18.1 H Plt Count 168 MPV 8.6 Neutrophils % 95.5 H Lymphocytes % 2.3 L D Monocytes % 2.0 L Eosinophils % 0.1 D Basophils % 0.1 Puncture Site Right radial ABG pH 7.51 H ABG pCO2 at Pt Temp 29.4 L ABG pO2 at Pt Temp 103.0 H D ABG HCO3 23.3 ABG O2 Sat (Measured) 98.1 ABG O2 Content 17.4 ABG Base Excess 1.4 José Miguel Test Positive O2 Delivery Device Vent Oxygen Flow Rate 50% Vent Rate 12 PEEP 5.0 Pressure Support Vent 350 Sodium 133 L Potassium 4.5 Chloride 101 Carbon Dioxide 23 Anion Gap 9 BUN 15 Creatinine 0.4 L Creat Clearance w eGFR > 60 Random Glucose 137 H Calcium 5.8 L* Phosphorus 2.5 Magnesium 1.8 Total Bilirubin 0.9 AST 36 ALT 18 Alkaline Phosphatase 233 H Total Protein 3.7 L Albumin 1.0 L Active Medications Generic Name Dose Route Start Last Admin Trade Name Freq PRN Reason Stop Dose Admin Amiodarone HCl 400 mg 04/20/17 10:00 04/27/17 21:36 Cordarone - PO 400 mg BID SIMON Administration Enoxaparin Sodium 85 mg 04/27/17 10:06 Lovenox - SQ DAILY SIMON Ampicillin Sodium 2 gm/ Sodium 100 mls @ 200 mls/hr 04/22/17 12:00 04/28/17 05:46 Chloride IVPB 200 mls/hr Q4H-IV SIMON Administration Gentamicin Sulfate 30 mg/ 100.75 mls @ 100.75 mls/hr 04/22/17 12:00 04/28/17 01:29 Sodium Chloride IVPB 100.75 mls/hr Q8H-IV SIMON Administration Propofol 1,000,000 mcg in 100 mls @ 1.546 mls/hr 04/24/17 18:00 04/27/17 21: 35 Diprivan - IVPB 30 mcg/kg/min TITR SIMON 9.275 mls/hr Protocol Administration 5 MCG/KG/MIN Famotidine/Sodium Chloride 20 mg in 50 mls @ 100 mls/hr 04/26/17 22:00 21:36 Pepcid 20 Mg Premixed Ivpb - IVPB 100 mls/hr BID SIMON Administration Norepinephrine Bitartrate 16, 1,000 mls @ 18.75 mls/hr 04/26/17 20:15 21:18 000 mcg/ Sodium Chloride IV 15 mcg/min TITR SIMON 56.25 mls/hr Protocol Administration 5 MCG/MIN Dobutamine HCl 250,000 mcg/ 250 mls @ 17.98 mls/hr 04/27/17 14:15 04/27/17 15 :07 Sodium Chloride IV 5 mcg/kg/min TITR SIMON 17.98 mls/hr Protocol Administration 5 MCG/KG/MIN Levothyroxine Sodium 75 mcg 04/15/17 07:00 04/28/17 06:40 Synthroid - PO 75 mcg DAILY@0700 SIMON Administration Melatonin 5 mg 04/18/17 16:54 04/19/17 23:05 Melatonin PO 5 mg HS PRN Administration INSOMNIA Metoprolol Tartrate 100 mg 04/18/17 22:00 04/27/17 21:36 Lopressor - PO Not Given BID SIMON Potassium Phos/Sodium Phos 1 packet 04/26/17 10:00 04/27/17 09:28 Phos-Nak Packet - NGT 04/28/17 09:59 1 packet DAILY SIMON Administration Saliva Substitute 1 applic 04/20/17 17:15 04/27/17 09:28 Mouthkote Solution - MM Not Given DAILY SIMON ASSESSMENT/PLAN: The patient is an 86 year old female with a history of CAD w/ stents, afib on xarelto, HFpEF (EF 67.8%, 2016) and HLD who initially presented to the hospital for afib with RVR now transferred to the ICU for hypotension, fevers, and listeria sepsis with pneumoccol menigitis. NEURO Patient is intubated. -Sedated with propofol. -Will continue to monitor. CV #Hypotension Patient noted to be hypotensive over the weekend and started on pressors with increasing pressor support needed. -Continue levophed and titrate as needed to maintain MAP >65. -Dobutamine was started due to the patient's poor EF on echocardiogram. -Will continue to monitor. #Afib with RVR Patient initially presented with a hr of 160 now rate controlled to 100-110 on amiodarone. Patient on xarelto for anti-coagulation. Cardiology is following. -Continue amidarone per cardiology recs. -Will continue to monitor closely. -Appreciate cardiology recs. #CHF (EF 20%, 2018) Patient was initially being diuriesed, however due to the patient's hypotension , she is no longer on a dieretic agent. -Conservative fluid hydration at the moment. -Will continue to monitor closely. RESP #Respiratory distress Patient noted to have worsening respiratory distress and was intubated. -Continue vent settings and ween down as tolerated. -Chest plain film appears to be worsening. -Close monitoring of the patient's O2 saturation. -Will continue to monitor. GI #Elevated Liver Enzymes -Will continue to monitor and trend. Renal No issues currently -Will continue to monitor bun/creatinine. ID #Sepsis Patient noted to be febrile last week with hypotension concerning for sepsis or septic shock. Chest plain film demonstrates bilateral pleural effusions as well as findings concerning for a possible pneumonia. Possible sources of the patient's infection could be pneumonia vs. UTI. Blood cultures and urine cultures were sent. Blood cultures are growing listeria. Lumbar puncture over the weekend was positive for strep pneumo in the CSF concerning for menigitis. We will also cover for listeria as well as pneumoccol menigitis. Patient's urine is growing legionella. -Continue Ampicillin and Gentamycin for aggressive antibiotic coverage. -Continue to manage fever with tylenol. -Serial CXR. -Follow up on blood, CSF and urine cultures. -Will continue to monitor. -ID is follow and appreciate recs. MSK No issues currently FEN/GI -Replete electrolytes PRN, will monitor PPX -Continue Lovenox DISPO: Continue ICU level of care. Visit type - Emergency Visit Emergency Visit: No - New Patient This patient is new to me today: No - Critical Care Critical Care patient: Yes Total Critical Care Time (in minutes): 35 Critical Care Statement: The care of this patient involved high complexity decision making to prevent further life threatening deterioration of the patient 's condition and/or to evaluate & treat vital organ system(s) failure or risk of failure.
[2017-04-28] MEDS ORDERED: PT OWN MED DRAWER 7, Y5N ONE ×4 (09:10→21:30)
[2017-04-28] MEDS: AMIODARONE HCL 200 MG TABLET (FP) PO SCH ×2 (09:18→21:39)
[2017-04-28] MEDS: FAMOTIDINE 20 MG/50 ML IVPB 20 MG/50 ML MG IVPB SCH ×2 (09:18→21:40)
[2017-04-28] MEDS: ENOXAPARIN NA (PORCINE) 100 MG/1 ML DISP.SYRIN SQ SCH (09:18)
[2017-04-28] MEDS: METOPROLOL TARTRATE 50 MG TABLET (FP) PO SCH (09:19)
[2017-04-28] MEDS: LYTES/YERBA SANTA 240 ML BOTTLE MM SCH (09:19)
--- NOTE | 2017-04-28 10:59 | PN ---
Teaching Attending Note Name of Resident: Chester Zavala ATTENDING PHYSICIAN STATEMENT I saw and evaluated the patient. I reviewed the resident's note and discussed the case with the resident. I agree with the resident's findings and plan as documented. SUBJECTIVE: Patient seen and examined in the ICU. Remains intubated and poorly responsive. AC Mode of vent. Remains on 9 mcq NE drip for hemodynamic support. Noted Dobutamine added yesterday. Clinically appears better perfused (warmer extremities with less edema). OBJECTIVE: Intake & Output 04/25/17 04/26/17 04/27/17 04/28/17 23:59 23:59 23:59 23:59 Intake Total 3842.4 3290 4072.2 1325 Output Total 778 335 1362 800 Balance 3542.4 2590 3072.2 525 Weight 124 lb 128 lb 1.6 oz 132 lb 3.2 oz 139 lb 8.842 oz Last Vital Signs Temp Pulse Resp BP Pulse Ox 98.4 F 120 H 30 H 102/68 100 04/28/17 02:00 04/28/17 08:05 04/28/17 09:00 04/28/17 04:00 04/28/17 09:00 Active Medications Amiodarone HCl (Cordarone -) 400 mg PO BID SIMON Last Admin: 04/28/17 09:18 Dose: 400 mg Enoxaparin Sodium (Lovenox -) 85 mg SQ DAILY SIMON Last Admin: 04/28/17 09:18 Dose: 85 mg Ampicillin Sodium 2 gm/ Sodium (Chloride) 100 mls @ 200 mls/hr IVPB Q4H-IV SIMON Last Admin: 04/28/17 09:17 Dose: 200 mls/hr Gentamicin Sulfate 30 mg/ (Sodium Chloride) 100.75 mls @ 100.75 mls/hr IVPB Q8H -IV SIMON Last Admin: 04/28/17 09:20 Dose: 100.75 mls/hr Propofol (Diprivan -) 1,000,000 mcg in 100 mls @ 1.546 mls/hr IVPB TITR SIMON; 5 MCG/KG/MIN PRN Reason: Protocol Last Admin: 04/27/17 21:35 Dose: 30 mcg/kg/min, 9.275 mls/hr Famotidine/Sodium Chloride (Pepcid 20 Mg Premixed Ivpb -) 20 mg in 50 mls @ 100 mls/hr IVPB BID SIMON Last Admin: 04/28/17 09:18 Dose: 100 mls/hr Norepinephrine Bitartrate 16, (000 mcg/ Sodium Chloride) 1,000 mls @ 18.75 mls/ hr IV TITR SIMON; 5 MCG/MIN PRN Reason: Protocol Last Admin: 04/27/17 21:18 Dose: 15 mcg/min, 56.25 mls/hr Dobutamine HCl 250,000 mcg/ (Sodium Chloride) 250 mls @ 17.98 mls/hr IV TITR SIMON; 5 MCG/KG/MIN PRN Reason: Protocol Last Admin: 04/27/17 15:07 Dose: 5 mcg/kg/min, 17.98 mls/hr Levothyroxine Sodium (Synthroid -) 75 mcg PO DAILY@0700 [facility] Last Admin: 04/28/17 06:40 Dose: 75 mcg Melatonin (Melatonin) 5 mg PO HS PRN PRN Reason: INSOMNIA Last Admin: 04/19/17 23:05 Dose: 5 mg Metoprolol Tartrate (Lopressor -) 100 mg PO BID [facility] Last Admin: 04/28/17 09:19 Dose: Not Given Saliva Substitute (Mouthkote Solution -) 1 applic MM DAILY [facility] Last Admin: 04/28/17 09:19 Dose: Not Given Gen: intubated, poorly responsive Heart: tachycardic, regular Lung: bilateral rhonchi Abd: soft, nontender Ext: + edema Laboratory Results - last 24 hr 04/28/17 04/28/17 04/28/17 05:15 05:15 06:00 WBC 11.9 H RBC 4.52 Hgb 12.5 Hct 38.5 MCV 85.2 MCH 27.6 MCHC 32.5 RDW 18.1 H Plt Count 168 MPV 8.6 Neutrophils % 95.5 H Lymphocytes % 2.3 L D Monocytes % 2.0 L Eosinophils % 0.1 D Basophils % 0.1 Puncture Site Right radial ABG pH 7.51 H ABG pCO2 at Pt Temp 29.4 L ABG pO2 at Pt Temp 103.0 H D ABG HCO3 23.3 ABG O2 Sat (Measured) 98.1 ABG O2 Content 17.4 ABG Base Excess 1.4 José Miguel Test Positive O2 Delivery Device Vent Oxygen Flow Rate 50% Vent Rate 12 PEEP 5.0 Pressure Support Vent 350 Sodium 133 L Potassium 4.5 Chloride 101 Carbon Dioxide 23 Anion Gap 9 BUN 15 Creatinine 0.4 L Creat Clearance w eGFR > 60 Random Glucose 137 H Calcium 5.8 L* Phosphorus 2.5 Magnesium 1.8 Total Bilirubin 0.9 AST 36 ALT 18 Alkaline Phosphatase 233 H Total Protein 3.7 L Albumin 1.0 L ASSESSMENT AND PLAN: Acute Hypoxic Respiratory Failure Listeria Meningitis/Bacteremia Acute Colitis Septic Shock Atrial Fibrillation with RVR Acute Kidney Injury improving Lactic Acidosis resolved Elevated LFTs resolved Acute on Chronic Diastolic Heart Failure Coagulopathy improved Hypothyroidism - continue antibiotics per ID - titrate pressors/inotrope to maintain MAP >65 - monitor urine output, creatinine - rate control - replete lytes - O2 to keep SpO2 >90% - continue ICU monitoring - guarded prognosis - Enteral feeds - Will need family meeting to discuss GOC Dr Laguna Critical care time spent in reviewing chart, evaluating patient and formulating plan 36 min
[2017-04-28] MEDS: DOBUTAMINE HCL 250,000 MCG in SODIUM CHLORIDE 230 ML IV SCH (14:46)
[2017-04-28] MEDS ORDERED: DOBUTAMINE 250 MG/D5W - 250,000 MCG/250 ML INFUS.BAG ONE (14:46)
--- NOTE | 2017-04-28 14:57 | PN ---
Teaching Attending Note Name of Resident: Luisito Steele ATTENDING PHYSICIAN STATEMENT I saw and evaluated the patient. I reviewed the resident's note and discussed the case with the resident. I agree with the resident's findings and plan as documented. SUBJECTIVE:intubated/sedated OBJECTIVE: Last Vital Signs Temp Pulse Resp BP Pulse Ox 98 F 112 H 20 96/73 100 04/28/17 08:00 04/28/17 12:00 04/28/17 12:00 04/28/17 12:00 04/28/17 11:20 Intake & Output 04/25/17 04/26/17 04/27/17 04/28/17 23:59 23:59 23:59 23:59 Intake Total 3842.4 3290 4072.2 1325 Output Total 886 463 4506 800 Balance 3542.4 2590 3072.2 525 Weight 124 lb 128 lb 1.6 oz 132 lb 3.2 oz 139 lb 8.842 oz General sedated, flinches to pain, +gag reflex HEENT icteric CV S1 S2 irregular irregular Lungs Coarse breath sounds Abdomen soft NT/ND Extremities 2+ all extremities pitting edema, extremities now warm with 1+ pulses throughout ASSESSMENT AND PLAN: 86yo F with PMH AFib on xarelto, CAD s/p stents, hypothyroid, Systolic CHF, dyslipidemia 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 levo titrated to 9mcg. UOP improved. on Ampicillin/Gent day 6. Gent trough acceptable. ID on board 2. Acute hypoxic respiratory failure from septic shock and likely systolic HF exacerbation from volume resuscitation- on full vent support. vent management from ICU team. propofol for sedation. vacation sedations 3. Afib with RVR-continues to have RVR bursts. loaded with amio IV last night. cont po at this time. cardio on board. Xarelto on hold due to coagulopathy 4. Acute Systolic Heart failure exacerbation- started on dobutamine ggt yesterday with improvement in perfusion. UOP improved. will monitor for now. 5. Coagulopathy, elevated INR, suspect from hepatic congestion/amiodarone- resolved 6. Acute transaminitis-likely congestive hepatopathy. now resolved 7. Hypothyoridism 8. SELMA, prerenal likely from CKD on her CKD (from poor EF)- resolved 9. Hypokalemia- resolved 10. Pseduohypocalcemia- Corrected CA 8.5 11. Severe hypophosphatemia- resolved 12. DVT ppx- lovenox 13. Poor overall prognosis. Family meeting between daughter and ICU team. family is unable to make decision at this time. understands poor overall prognosis. total critical care time spent 35 min.
[2017-04-28] MEDS: PROPOFOL 1,000,000 MCG/100 ML VIAL IVPB SCH (18:11)
[2017-04-28] MEDS ORDERED: NOREPINEPHRINE BITARTRATE 4 MG/4 ML ML IV ONE (18:22)
--- NOTE | 2017-04-28 18:35 | PN ---
Progress Note (short form) - Note Progress Note: NEUROLOGY FOLLOW-UP: Events reviewed and discussed with RN. Pt was much more responsive off propofol today but propofol resumed as Pt was overbreathing the ventilator (40/min). Now (on propofol). + spontaneous respirations. grimaces to sternal pressure and pinch all 4's. Corneals +/+ Neck supple. IMP: Much improved with Rx for Listeria Meningitis. Suggest: Continue current regimen. Periodic breathing trials. Non-contrast CT of head to R/O hydrocephalus. Thank you very much, Ish Livingston MD
[2017-04-28] MEDS: NOREPINEPHRINE BITARTRATE 16,000 MCG in SODIUM CHLORIDE 0.45% 984 ML IV SCH (21:37)
[2017-04-28] MEDS ORDERED: FUROSEMIDE 40 MG/4 ML INJECTABLE VIAL IVPUSH ONE ×2 (23:07)
--- NOTE | 2017-04-28 23:44 | PN ---
Progress Note, Physician Chief Complaint: Pt remains intubated and sedated. History of Present Illness: Patient is an 86 year old female with a significant past medical history of CAD w/ stents, afib on xarelto, HFpEF (EF 67.8%, 2016) and HLD who presents to the ED for tachycardia. Patient was seen in cardiology clinic today and was found on EKG to be in afib with RVR with a rate of 160. She was subsequently sent to ER for management. Patient currently has no complaints or pain while in the ED. Denies ever having CP/SOB/palpitations. Denies F/C/N/V/D. Reports compliance with all of her medications. Allergies: None Social history: Lives with daughter. No smoking. No alcohol. No illicit drugs. Surgical history: None PMD: Dr Parrish. Plasterer Foreman: Dr. Andino " - Current Medication List Current Medications: Active Medications Amiodarone HCl (Cordarone -) 400 mg PO BID [facility] Last Admin: 04/28/17 21:39 Dose: 400 mg Enoxaparin Sodium (Lovenox -) 85 mg SQ DAILY [facility] Last Admin: 04/28/17 09:18 Dose: 85 mg Ampicillin Sodium 2 gm/ Sodium (Chloride) 100 mls @ 200 mls/hr IVPB Q4H-IV SIMON Last Admin: 04/28/17 21:39 Dose: 200 mls/hr Gentamicin Sulfate 30 mg/ (Sodium Chloride) 100.75 mls @ 100.75 mls/hr IVPB Q8H -IV SIMON Last Admin: 04/28/17 18:11 Dose: 100.75 mls/hr Propofol (Diprivan -) 1,000,000 mcg in 100 mls @ 1.546 mls/hr IVPB TITR SIMON; 5 MCG/KG/MIN PRN Reason: Protocol Last Admin: 04/28/17 18:11 Dose: 30 mcg/kg/min, 9.275 mls/hr Famotidine/Sodium Chloride (Pepcid 20 Mg Premixed Ivpb -) 20 mg in 50 mls @ 100 mls/hr IVPB BID SIMON Last Admin: 04/28/17 21:40 Dose: 100 mls/hr Norepinephrine Bitartrate 16, (000 mcg/ Sodium Chloride) 1,000 mls @ 18.75 mls/ hr IV TITR SIMON; 5 MCG/MIN PRN Reason: Protocol Last Admin: 04/28/17 21:37 Dose: 8 mcg/min, 30 mls/hr Dobutamine HCl 250,000 mcg/ (Sodium Chloride) 250 mls @ 17.98 mls/hr IV TITR SIMON; 5 MCG/KG/MIN PRN Reason: Protocol Last Admin: 04/28/17 14:46 Dose: 3 mcg/kg/min, 10.79 mls/hr Levothyroxine Sodium (Synthroid -) 75 mcg PO DAILY@0700 [facility] Last Admin: 04/28/17 06:40 Dose: 75 mcg Melatonin (Melatonin) 5 mg PO HS PRN PRN Reason: INSOMNIA Last Admin: 04/19/17 23:05 Dose: 5 mg Saliva Substitute (Mouthkote Solution -) 1 applic MM DAILY [facility] Last Admin: 04/28/17 09:19 Dose: Not Given - Objective Vital Signs: Vital Signs Temperature 97.4 F L 04/28/17 21:48 Pulse Rate 111 H 04/28/17 21:48 Respiratory Rate 32 H 04/28/17 23:35 Blood Pressure 122/68 04/28/17 21:48 O2 Sat by Pulse Oximetry (%) 97 04/28/17 17:21 Constitutional: Yes: Thin Eyes: Yes: WNL HENT: Yes: WNL Neck: Yes: Decreased ROM Cardiovascular: Yes: Tachycardia, Pulse Irregular Respiratory: Yes: Diminished, Intubated, Mechanically Ventilated Gastrointestinal: Yes: Soft Genitourinary: No: Anuria Musculoskeletal: Yes: Muscle Weakness Extremities: Yes: Cool Edema: Yes Edema: LLE: 2+, RLE: 2+ Peripheral Pulses WNL: No Peripheral Pulses: Left Doralis Pedis: 1+, Right Dorsalis Pedis: 1+ Neurological: Yes: Other (sedated while intubated; agitated when off sedation) Psychiatric: Yes: Other Labs: CBC, BMP 04/28/17 05:15 04/28/17 05:15 INR, PTT INR 1.07 (0.82-1.09) 04/26/17 06:10 Fibrinogen 252.0 mg/dL (238-498) 04/23/17 05:15 Abnormal Lab Results 04/28/17 04/28/17 04/28/17 05:15 05:15 06:00 WBC 11.9 H RDW 18.1 H Neutrophils % 95.5 H Lymphocytes % 2.3 L D Monocytes % 2.0 L ABG pH 7.51 H ABG pCO2 at Pt Temp 29.4 L ABG pO2 at Pt Temp 103.0 H D Sodium 133 L Creatinine 0.4 L Random Glucose 137 H Calcium 5.8 L* Alkaline Phosphatase 233 H Total Protein 3.7 L Albumin 1.0 L - ....Imaging Other: Image Reviewed (telemetry: AF, periods of RVR) Problem List - Problems (1) Atrial fibrillation with RVR Assessment/Plan: . repleted Mg and PO4. Reduce amiodarone to 400 mg daily for a week, with plan to eventually be on maintenance of 100 mg daily. Dobutamine dose lowered due to tachycardia. Code(s): I48.91 - UNSPECIFIED ATRIAL FIBRILLATION (2) Acute on chronic systolic and diastolic heart failure, NYHA class 2 Assessment/Plan: On amiodarone and metoprolol. Problematic giving other agents (e.g. ACEI, RAAS, hydralazine + isordil) at the present time due to renal insufficiency and relative hypotension. ECHO: severely reduced LVEF. F/u BUn/Cr, electrolytes, Is and Os, daily weight. Code(s): I50.43 - ACUTE ON CHRONIC COMBINED SYSTOLIC AND DIASTOLIC HRT FAIL (3) CAD (coronary artery disease) Code(s): I25.10 - ATHSCL HEART DISEASE OF [place] CORONARY ARTERY W/O ANG PCTRS (4) Hypothyroid Assessment/Plan: elevated TSH; free T4 is also mildly elevated. Following thyroid function is especially important when on amiodarone (dose to be reduced to 400 mg daily for a week, with plan to maintain on 100 mg daily). Code(s): E03.9 - HYPOTHYROIDISM, UNSPECIFIED (5) Renal insufficiency Assessment/Plan: f/u carefully (on furosemide for acute CHF); avoid excessive dehydration. Code(s): N28.9 - DISORDER OF KIDNEY AND URETER, UNSPECIFIED (6) Acute respiratory failure Assessment/Plan: on antibiotics for septic shock steroids, O2 per radio program checker.. Code(s): J96.00 - ACUTE RESPIRATORY FAILURE, UNSP W HYPOXIA OR HYPERCAPNIA (7) Septic shock Assessment/Plan: remains febrile; Listeria meningitis. Antibiotics per ID. Fluids; monitor Is and Os, daily weight, BUN?cr, electrolytes. On norepinehprine; LVEF is severely reduced, (and pt known to have significant MR)--> dobuamine.for attempt to improve cardiac output (dose lowered due to tachycardia). Code(s): A41.9 - SEPSIS, UNSPECIFIED ORGANISM; R65.21 - SEVERE SEPSIS WITH SEPTIC SHOCK (8) CHF (congestive heart failure) Assessment/Plan: Severe systolic LV dysfunction, with severe pulmonary HTN. on metoprolol and amiodarone. Furosemide held (sepsis; hypotension). On norepinephrine IV for pressure support; on dobutamine to help improve cardiac output. F/u BUN/ Cr, electrolytes, daily weight, Is and Os. Code(s): I50.9 - HEART FAILURE, UNSPECIFIED
[2017-04-29] MEDS ORDERED: PROPOFOL 1,000,000 MCG/100 ML VIAL ONE (02:33)
[2017-04-29] MEDS: AMPICILLIN - 2 GM in SODIUM CHLORIDE 100 ML IVPB SCH ×6 (02:42→21:11)
[2017-04-29] MEDS: SODIUM CHLORIDE IVPB SCH ×3 (02:44→17:21)
[2017-04-29] MEDS: GENTAMICIN IVPB SCH ×3 (02:44→17:21)
[2017-04-29 06:34] LABS: EOS % 0.1 % (0-4.5); HEMATOCRIT 36.2 % (32.4-45.2); HEMOGLOBIN 11.7 GM/dL (10.7-15.3); LYMPH % 1.8 % (8-40); MCH 27.3 pg (25.7-33.7); MCHC 32.4 g/dl (32.0-36.0); MEAN CELL VOLUME 84.2 fl (80-96); MEAN PLT VOLUME 8.8 fl (7.5-11.1); MONO % 1.4 % (3.8-10.2); NEUT % 96.7 % (42.8-82.8); PLATELET COUNT 162 K/MM3 (134-434); RDW 18.3 % (11.6-15.6); WHITE BLOOD COUNT 9.5 K/mm3 (4.0-10.0)
[2017-04-29 07:03] LABS: CHLORIDE 100 mmol/L (98-107); POTASSIUM 3.9 mmol/L (3.5-5.1); SODIUM 133 mmol/L (136-145)
[2017-04-29 07:07] LABS: ARTERIAL BLD GAS O2 SATURATION 94.3 % (90-98.9); ARTERIAL BLOOD GAS BASE EXCESS 2.3 meq/l (-2-2); ARTERIAL BLOOD GAS PCO2 30.4 mmHg (35-45); ARTERIAL BLOOD GAS PO2 66.3 mmHg (68-100); ARTERIAL BLOOD GAS pH 7.52 (7.35-7.45)
[2017-04-29 07:16] LABS: ALK PHOS 236 U/L (45-117); ANION GAP 8 (8-16); BILIRUBIN,TOTAL 0.8 mg/dL (0.2-1.0); BLOOD UREA NITROGEN 14 mg/dL (7-18); CO2 25 mmol/L (21-32); CREATININE 0.5 mg/dL (0.55-1.02); GLUCOSE,RANDOM 164 mg/dL (74-106); MAGNESIUM 1.7 mg/dL (1.8-2.4); PHOSPHOROUS 2.1 mg/dL (2.5-4.9); SGOT/AST 47 U/L (15-37); SGPT/ALT 21 U/L (12-78); TOT PROT 3.5 g/dl (6.4-8.2)
[2017-04-29] MEDS: LEVOTHYROXINE NA 75 MCG TABLET (FP) PO SCH (07:22)
[2017-04-29 07:26] LABS: ALLENS TEST POSITIVE
[2017-04-29 07:33] LABS: ALBUMIN 0.9 g/dl (3.4-5.0)
[2017-04-29 07:34] LABS: CALCIUM 6.2 mg/dL (8.5-10.1)
--- NOTE | 2017-04-29 07:58 | PN ---
Progress Note (short form) - Note Progress Note: intubated/sedated Current Medications Generic Name Dose Route Start Last Admin Trade Name Freq PRN Reason Stop Dose Admin Amiodarone HCl 400 mg 04/20/17 10:00 04/28/17 21:39 Cordarone - PO 400 mg BID SIMON Administration Enoxaparin Sodium 85 mg 04/27/17 10:06 04/28/17 09:18 Lovenox - SQ 85 mg DAILY SIMON Administration Ampicillin Sodium 2 gm/ Sodium 100 mls @ 200 mls/hr 04/22/17 12:00 04/29/17 05:26 Chloride IVPB 200 mls/hr Q4H-IV SIMON Administration Gentamicin Sulfate 30 mg/ 100.75 mls @ 100.75 mls/hr 04/22/17 12:00 04/29/17 02:44 Sodium Chloride IVPB 100.75 mls/hr Q8H-IV SIMON Administration Propofol 1,000,000 mcg in 100 mls @ 1.546 mls/hr 04/24/17 18:00 04/28/17 18: 11 Diprivan - IVPB 30 mcg/kg/min TITR SIMON 9.275 mls/hr Protocol Administration 5 MCG/KG/MIN Famotidine/Sodium Chloride 20 mg in 50 mls @ 100 mls/hr 04/26/17 22:00 21:40 Pepcid 20 Mg Premixed Ivpb - IVPB 100 mls/hr BID SIMON Administration Norepinephrine Bitartrate 16, 1,000 mls @ 18.75 mls/hr 04/26/17 20:15 21:37 000 mcg/ Sodium Chloride IV 8 mcg/min TITR SIMON 30 mls/hr Protocol Administration 5 MCG/MIN Dobutamine HCl 250,000 mcg/ 250 mls @ 17.98 mls/hr 04/27/17 14:15 04/28/17 14 :46 Sodium Chloride IV 3 mcg/kg/min TITR SIMON 10.79 mls/hr Protocol Administration 5 MCG/KG/MIN Levothyroxine Sodium 75 mcg 04/15/17 07:00 04/29/17 07:22 Synthroid - PO 75 mcg DAILY@0700 SIMON Administration Melatonin 5 mg 04/18/17 16:54 04/19/17 23:05 Melatonin PO 5 mg HS PRN Administration INSOMNIA Saliva Substitute 1 applic 04/20/17 17:15 04/28/17 09:19 Mouthkote Solution - MM Not Given DAILY SIMON Last Vital Signs Temp Pulse Resp BP Pulse Ox 97.5 F L 110 H 32 H 85/58 97 04/29/17 06:00 04/29/17 06:00 04/29/17 07:00 04/29/17 06:00 04/28/17 17:21 Intake & Output 04/26/17 04/27/17 04/28/17 04/29/17 23:59 23:59 23:59 23:59 Intake Total 3290 4072.2 3383 1280 Output Total 700 1000 1200 650 Balance 2590 3072.2 2183 630 Weight 128 lb 1.6 oz 132 lb 3.2 oz 139 lb 8.842 oz 141 lb 12.116 oz General sedated, flinches to pain, +gag reflex HEENT icteric, sluggish pupil response CV S1 S2 irregular irregular Lungs Coarse breath sounds Abdomen soft NT/ND Extremities 2+ all extremities pitting edema, extremities now warm with 1+ pulses throughout CBCD WBC 9.5 K/mm3 (4.0-10.0) 04/29/17 06:15 RBC 4.30 M/mm3 (3.60-5.2) 04/29/17 06:15 Hgb 11.7 GM/dL (10.7-15.3) 04/29/17 06:15 Hct 36.2 % (32.4-45.2) 04/29/17 06:15 MCV 84.2 fl (80-96) 04/29/17 06:15 MCHC 32.4 g/dl (32.0-36.0) 04/29/17 06:15 RDW 18.3 % (11.6-15.6) H 04/29/17 06:15 Plt Count 162 K/MM3 (134-434) 04/29/17 06:15 MPV 8.8 fl (7.5-11.1) 04/29/17 06:15 CMP Sodium 133 mmol/L (136-145) L 04/29/17 06:15 Potassium 3.9 mmol/L (3.5-5.1) 04/29/17 06:15 Chloride 100 mmol/L (98-107) 04/29/17 06:15 Carbon Dioxide 25 mmol/L (21-32) 04/29/17 06:15 Anion Gap 8 (8-16) 04/29/17 06:15 BUN 14 mg/dL (7-18) 04/29/17 06:15 Creatinine 0.5 mg/dL (0.55-1.02) L 04/29/17 06:15 Creat Clearance w eGFR > 60 (>60) 04/29/17 06:15 Calcium 6.2 mg/dL (8.5-10.1) L* 04/29/17 06:15 Total Bilirubin 0.8 mg/dL (0.2-1.0) 04/29/17 06:15 AST 47 U/L (15-37) H 04/29/17 06:15 ALT 21 U/L (12-78) 04/29/17 06:15 Alkaline Phosphatase 236 U/L (45-117) H 04/29/17 06:15 Total Protein 3.5 g/dl (6.4-8.2) L 04/29/17 06:15 Albumin 0.9 g/dl (3.4-5.0) L 04/29/17 06:15 Microbiology 04/25/17 11:15 Blood Culture - Preliminary Blood - Peripheral Venous NO GROWTH OBTAINED AFTER 72 HOURS, INCUBATION TO CONTINUE FOR 2 DAYS. 04/25/17 09:35 Blood Culture - Preliminary Blood - Peripheral Venous NO GROWTH OBTAINED AFTER 72 HOURS, INCUBATION TO CONTINUE FOR 2 DAYS. 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 levo 5mcg. dobutamine 4mcg. UOP improved. repeat BCx negative. on Ampicillin/Gent day 7. elevated Gent trough, however was done at wrong time. will repeat. ID on board 2. Acute hypoxic respiratory failure from septic shock and likely systolic HF exacerbation from volume resuscitation- on full vent support. vent management from ICU team. propofol for sedation. vacation sedations 3. Afib with RVR-continues to have RVR bursts.cont po at this time. cardio on board. Xarelto on hold due to coagulopathy 4. Acute Systolic Heart failure exacerbation- s/p lasix 40mg IVP x1 yesterday. on dobutamine ggt 4mcg. UOP improved. will monitor for now. 5. Coagulopathy, elevated INR, suspect from hepatic congestion/amiodarone- resolved 6. Acute transaminitis-likely congestive hepatopathy. now resolved 7. Hypothyoridism- on LT4 8. SELMA, prerenal likely from CKD on her CKD (from poor EF)- resolved 9. Hypomagnesemia- Mg 2g 10. Pseduohypocalcemia- Corrected CA 8.5 11. Severe hypophosphatemia- neutraphos packets 12. DVT ppx- lovenox 13. Poor overall prognosis. Family meeting between daughter and ICU team. family is unable to make decision at this time. understands poor overall prognosis. Visit type - Emergency Visit Emergency Visit: Yes ED Registration Date: 04/14/17 Care time: The patient presented to the Emergency Department on the above date and was hospitalized for further evaluation of their emergent condition. - New Patient This patient is new to me today: No - Critical Care Critical Care patient: Yes Total Critical Care Time (in minutes): 38 Critical Care Statement: The care of this patient involved high complexity decision making to prevent further life threatening deterioration of the patient 's condition and/or to evaluate & treat vital organ system(s) failure or risk of failure. - Discharge Referral Referred to [facility] No
--- NOTE | 2017-04-29 08:42 | PN ---
Progress Note (short form) - Note Progress Note: PULM/CCM SUBJECTIVE: Patient seen and examined in the ICU. 24HR events: More responsive, appears in pain tachypneic on vent with significant resp alk on abg still with positive fluid balance, given lasix overnight OBJECTIVE: Vital Signs Temp 97.5 F L 04/29/17 06:00 Pulse 115 H 04/29/17 08:33 Resp 27 H 04/29/17 08:33 BP 85/58 04/29/17 06:00 Pulse Ox 96 04/29/17 08:33 Intake & Output 04/28/17 04/28/17 04/29/17 11:59 23:59 11:59 Intake Total 1325 2058 1280 Output Total 800 400 650 Balance 525 1658 630 Weight 63.3 kg 64.3 kg Intake: IV 675 588 420 DIPRIVAN - 1,000,000 mcg 100 80 100 In 100 ml @ 5 MCG/KG/MIN 1.546 mls/hr IVPB TITR [facility] Rx#:[id number] Dobutrex - 250,000 Mcg In 75 108 120 Normal Saline - 230 ml @ 5 MCG/KG/MIN 17.98 mls/ hr IV TITR SIMON Rx#: [id number] Levophed - 16,000 Mcg In 500 400 200 1/2 Normal Saline 984 ml @ 5 MCG/MIN 18.75 mls/hr IV TITR SIMON Rx#: [id number] IVPB 200 750 300 Tube Feeding 600 500 Tube Irrigant 450 120 60 Output: Urine 800 400 650 Judge 800 400 650 Other: Voiding Method Indwelling Catheter Indwelling Catheter Bowel Movement Yes Yes # Bowel Movements 1 1 Active Medications Amiodarone HCl (Cordarone -) 400 mg PO BID [facility] Last Admin: 04/28/17 21:39 Dose: 400 mg Enoxaparin Sodium (Lovenox -) 85 mg SQ DAILY [facility] Last Admin: 04/28/17 09:18 Dose: 85 mg Fentanyl (Sublimaze Injection -) 50 mcg IVPUSH Q1H PRN PRN Reason: PAIN Stop: 04/30/17 08:44 Ampicillin Sodium 2 gm/ Sodium (Chloride) 100 mls @ 200 mls/hr IVPB Q4H-IV [facility] Last Admin: 04/29/17 05:26 Dose: 200 mls/hr Gentamicin Sulfate 30 mg/ (Sodium Chloride) 100.75 mls @ 100.75 mls/hr IVPB Q8H -IV SIMON Last Admin: 04/29/17 02:44 Dose: 100.75 mls/hr Propofol (Diprivan -) 1,000,000 mcg in 100 mls @ 1.546 mls/hr IVPB TITR SIMON; 5 MCG/KG/MIN PRN Reason: Protocol Last Admin: 04/28/17 18:11 Dose: 30 mcg/kg/min, 9.275 mls/hr Famotidine/Sodium Chloride (Pepcid 20 Mg Premixed Ivpb -) 20 mg in 50 mls @ 100 mls/hr IVPB BID SIMON Last Admin: 04/28/17 21:40 Dose: 100 mls/hr Norepinephrine Bitartrate 16, (000 mcg/ Sodium Chloride) 1,000 mls @ 18.75 mls/ hr IV TITR SIMON; 5 MCG/MIN PRN Reason: Protocol Last Admin: 04/28/17 21:37 Dose: 8 mcg/min, 30 mls/hr Dobutamine HCl 250,000 mcg/ (Sodium Chloride) 250 mls @ 17.98 mls/hr IV TITR SIMON; 5 MCG/KG/MIN PRN Reason: Protocol Last Admin: 04/28/17 14:46 Dose: 3 mcg/kg/min, 10.79 mls/hr Levothyroxine Sodium (Synthroid -) 75 mcg PO DAILY@0700 [facility] Last Admin: 04/29/17 07:22 Dose: 75 mcg Melatonin (Melatonin) 5 mg PO HS PRN PRN Reason: INSOMNIA Last Admin: 04/19/17 23:05 Dose: 5 mg Saliva Substitute (Mouthkote Solution -) 1 applic MM DAILY [facility] Last Admin: 04/28/17 09:19 Dose: Not Given Gen: intubated, poorly responsive, grimaces to stimuli Heart: tachycardic, regular Lung: bilateral rhonchi,tachypneic Abd: soft, nontender, + BS Ext: +3 dependent edema Neuro: CBCD WBC 9.5 K/mm3 (4.0-10.0) 04/29/17 06:15 RBC 4.30 M/mm3 (3.60-5.2) 04/29/17 06:15 Hgb 11.7 GM/dL (10.7-15.3) 04/29/17 06:15 Hct 36.2 % (32.4-45.2) 04/29/17 06:15 MCV 84.2 fl (80-96) 04/29/17 06:15 MCHC 32.4 g/dl (32.0-36.0) 04/29/17 06:15 RDW 18.3 % (11.6-15.6) H 04/29/17 06:15 Plt Count 162 K/MM3 (134-434) 04/29/17 06:15 MPV 8.8 fl (7.5-11.1) 04/29/17 06:15 CMP Sodium 133 mmol/L (136-145) L 04/29/17 06:15 Potassium 3.9 mmol/L (3.5-5.1) 04/29/17 06:15 Chloride 100 mmol/L (98-107) 04/29/17 06:15 Carbon Dioxide 25 mmol/L (21-32) 04/29/17 06:15 Anion Gap 8 (8-16) 04/29/17 06:15 BUN 14 mg/dL (7-18) 04/29/17 06:15 Creatinine 0.5 mg/dL (0.55-1.02) L 04/29/17 06:15 Creat Clearance w eGFR > 60 (>60) 04/29/17 06:15 Calcium 6.2 mg/dL (8.5-10.1) L* 04/29/17 06:15 Total Bilirubin 0.8 mg/dL (0.2-1.0) 04/29/17 06:15 AST 47 U/L (15-37) H 04/29/17 06:15 ALT 21 U/L (12-78) 04/29/17 06:15 Alkaline Phosphatase 236 U/L (45-117) H 04/29/17 06:15 Total Protein 3.5 g/dl (6.4-8.2) L 04/29/17 06:15 Albumin 0.9 g/dl (3.4-5.0) L 04/29/17 06:15 Microbiology 04/25/17 11:15 Blood - Peripheral Venous Blood Culture - Preliminary NO GROWTH OBTAINED AFTER 72 HOURS, INCUBATION TO CONTINUE FOR 2 DAYS. 04/25/17 09:35 Blood - Peripheral Venous Blood Culture - Preliminary NO GROWTH OBTAINED AFTER 72 HOURS, INCUBATION TO CONTINUE FOR 2 DAYS. 04/20/17 09:15 Blood - Peripheral Venous Blood Culture - Preliminary Listeria Monocytogenes 04/25/17 11:00 Sputum - Endotrachea Suction/Ventilator Gram Stain - Final 04/25/17 11:00 Sputum - Endotrachea Suction/Ventilator Sputum Culture - Final Yeast Like Organism 04/22/17 11:34 Blood - Peripheral Venous Blood Culture - Final NO GROWTH AFTER 5 DAYS INCUBATION 04/22/17 11:29 Blood - Peripheral Venous Blood Culture - Final NO GROWTH AFTER 5 DAYS INCUBATION 04/22/17 16:45 Cerebral Spinal Fluid - Lumbar Puncture AFB Smear Concentration - Final 04/25/17 11:18 Urine - Urine Judge Urine Culture - Final NO GROWTH OBTAINED 04/22/17 16:45 Cerebral Spinal Fluid - Lumbar Puncture Gram Stain - Final 04/22/17 16:45 Cerebral Spinal Fluid - Lumbar Puncture CSF Culture - Final NO GROWTH AFTER 48 HOURS INCUBATION 04/20/17 08:30 Blood - Peripheral Venous Blood Culture - Final Listeria Monocytogenes 04/23/17 10:05 Urine For Antigen Detection Legionella Antigen - Final 04/23/17 10:05 Urine For Antigen Detection Streptococcus pneumoniae Antigen (M - Final 04/22/17 16:45 Cerebral Spinal Fluid - Lumbar Puncture Streptococcus pneumoniae Antigen (M - Final 04/18/17 08:00 Blood - Peripheral Venous Blood Culture - Final NO GROWTH AFTER 5 DAYS INCUBATION 04/18/17 08:00 Blood - Peripheral Venous Blood Culture - Final NO GROWTH AFTER 5 DAYS INCUBATION 04/20/17 11:05 Urine - Urine - Catheterized Urine Culture - Final NO GROWTH OBTAINED 04/20/17 07:55 Nasopharyngeal Swab Influenza Types A,B Antigen (SÁNCHEZ) - Final 04/20/17 07:55 Nasopharyngeal Swab - Final 04/15/17 04:30 Nasopharyngeal Swab Influenza Types A,B Antigen (SÁNCHEZ) - Final 04/15/17 04:30 Nasopharyngeal Swab - Final ASSESSMENT AND PLAN: Acute Hypoxic Respiratory Failure Listeria Meningitis/Bacteremia Acute Colitis Septic Shock Atrial Fibrillation with RVR Acute Kidney Injury improving Lactic Acidosis resolved Elevated LFTs resolved Acute on Chronic Diastolic Heart Failure Coagulopathy improved Hypothyroidism - continue antibiotics per ID - titrate pressors/inotrope to maintain MAP >65, will try to come off endbander as tachyl -wean Propofol, will add low dose analgesia prn - monitor urine output, creatinine - rate control - replete lytes - O2 to keep SpO2 >90% - continue ICU monitoring - guarded prognosis - Enteral feeds - family meeting to discuss HYACINTH Rothman ACNP [id number] Critical Care Total Critical Care Time (in minutes): 35 Critical Care Statement: The care of this patient involved high complexity decision making to prevent further life threatening deterioration of the patient 's condition and/or to evaluate & treat vital organ system(s) failure or risk of failure.
--- NOTE | 2017-04-29 08:46 | PN ---
Progress Note (short form) - Note Progress Note: sedated and intubated remains on pressors and propofol moving her arms and legs ross, IJ remain no diarrhea Vital Signs Period Temp Pulse Resp BP Sys/Gandara Pulse Ox Last 24 Hr 97.4 F-98 F 104-119 18-40 85-122/48-74 96-100 no nuchal rigidity cor-rrr lungs decreased bs at bases abd soft,nt ext +edema hand and feet CBC, BMP 04/29/17 06:15 04/29/17 06:15 Microbiology 04/25/17 11:15 Blood - Peripheral Venous Blood Culture - Preliminary NO GROWTH OBTAINED AFTER 72 HOURS, INCUBATION TO CONTINUE FOR 2 DAYS. 04/25/17 09:35 Blood - Peripheral Venous Blood Culture - Preliminary NO GROWTH OBTAINED AFTER 72 HOURS, INCUBATION TO CONTINUE FOR 2 DAYS. 04/20/17 09:15 Blood - Peripheral Venous Blood Culture - Preliminary Listeria Monocytogenes 04/25/17 11:00 Sputum - Endotrachea Suction/Ventilator Gram Stain - Final 04/25/17 11:00 Sputum - Endotrachea Suction/Ventilator Sputum Culture - Final Yeast Like Organism 04/22/17 11:34 Blood - Peripheral Venous Blood Culture - Final NO GROWTH AFTER 5 DAYS INCUBATION 04/22/17 11:29 Blood - Peripheral Venous Blood Culture - Final NO GROWTH AFTER 5 DAYS INCUBATION 04/22/17 16:45 Cerebral Spinal Fluid - Lumbar Puncture AFB Smear Concentration - Final 04/25/17 11:18 Urine - Urine Ross Urine Culture - Final NO GROWTH OBTAINED 04/22/17 16:45 Cerebral Spinal Fluid - Lumbar Puncture Gram Stain - Final 04/22/17 16:45 Cerebral Spinal Fluid - Lumbar Puncture CSF Culture - Final NO GROWTH AFTER 48 HOURS INCUBATION 04/20/17 08:30 Blood - Peripheral Venous Blood Culture - Final Listeria Monocytogenes 04/23/17 10:05 Urine For Antigen Detection Legionella Antigen - Final 04/23/17 10:05 Urine For Antigen Detection Streptococcus pneumoniae Antigen (M - Final 04/22/17 16:45 Cerebral Spinal Fluid - Lumbar Puncture Streptococcus pneumoniae Antigen (M - Final 04/18/17 08:00 Blood - Peripheral Venous Blood Culture - Final NO GROWTH AFTER 5 DAYS INCUBATION 04/18/17 08:00 Blood - Peripheral Venous Blood Culture - Final NO GROWTH AFTER 5 DAYS INCUBATION 04/20/17 11:05 Urine - Urine - Catheterized Urine Culture - Final NO GROWTH OBTAINED 04/20/17 07:55 Nasopharyngeal Swab Influenza Types A,B Antigen (SÁNCHEZ) - Final 04/20/17 07:55 Nasopharyngeal Swab - Final 04/15/17 04:30 Nasopharyngeal Swab Influenza Types A,B Antigen (SÁNCHEZ) - Final 04/15/17 04:30 Nasopharyngeal Swab - Final Current Medications Amiodarone HCl (Cordarone -) 400 mg PO BID [facility] Last Admin: 04/28/17 21:39 Dose: 400 mg Enoxaparin Sodium (Lovenox -) 85 mg SQ DAILY [facility] Last Admin: 04/28/17 09:18 Dose: 85 mg Fentanyl (Sublimaze Injection -) 50 mcg IVPUSH Q1H PRN PRN Reason: PAIN Stop: 04/30/17 08:44 Last Admin: 04/29/17 08:39 Dose: 50 mcg Ampicillin Sodium 2 gm/ Sodium (Chloride) 100 mls @ 200 mls/hr IVPB Q4H-IV [facility] Last Admin: 04/29/17 05:26 Dose: 200 mls/hr Gentamicin Sulfate 30 mg/ (Sodium Chloride) 100.75 mls @ 100.75 mls/hr IVPB Q8H -IV [facility] Last Admin: 04/29/17 02:44 Dose: 100.75 mls/hr Propofol (Diprivan -) 1,000,000 mcg in 100 mls @ 1.546 mls/hr IVPB TITR SIMON; 5 MCG/KG/MIN PRN Reason: Protocol Last Titration: 04/29/17 08:41 Dose: 0 mcg/kg/min, 0 mls/hr Famotidine/Sodium Chloride (Pepcid 20 Mg Premixed Ivpb -) 20 mg in 50 mls @ 100 mls/hr IVPB BID [facility] Last Admin: 04/28/17 21:40 Dose: 100 mls/hr Norepinephrine Bitartrate 16, (000 mcg/ Sodium Chloride) 1,000 mls @ 18.75 mls/ hr IV TITR SIMON; 5 MCG/MIN PRN Reason: Protocol Last Admin: 04/28/17 21:37 Dose: 8 mcg/min, 30 mls/hr Dobutamine HCl 250,000 mcg/ (Sodium Chloride) 250 mls @ 17.98 mls/hr IV TITR SIMON; 5 MCG/KG/MIN PRN Reason: Protocol Last Admin: 04/28/17 14:46 Dose: 3 mcg/kg/min, 10.79 mls/hr Levothyroxine Sodium (Synthroid -) 75 mcg PO DAILY@0700 [facility] Last Admin: 04/29/17 07:22 Dose: 75 mcg Melatonin (Melatonin) 5 mg PO HS PRN PRN Reason: INSOMNIA Last Admin: 04/19/17 23:05 Dose: 5 mg Saliva Substitute (Mouthkote Solution -) 1 applic MM DAILY [facility] Last Admin: 04/28/17 09:19 Dose: Not Given a/p chart reviewed listeria sepsis- bacteremia with meningitis to continue amp/gentamicin day #7 gent trough reordered (last level drawn at the wrong time this am) afebrile history of afib pulmonary HTN CHF respiratory failure
[2017-04-29] MEDS ORDERED: PT OWN MED DRAWER 7, Y5N ONE ×2 (08:50→17:24)
[2017-04-29] MEDS ORDERED: MAGNESIUM 2GM/50ML STERILE WATER IVPB IVPB ONE (08:55)
[2017-04-29] MEDS ORDERED: NAPH,MB-DB/K PH,MBDB POWDER PACKET NGT ONE (09:00)
[2017-04-29] MEDS: FAMOTIDINE 20 MG/50 ML IVPB 20 MG/50 ML MG IVPB SCH ×2 (09:15→21:11)
[2017-04-29] MEDS: ENOXAPARIN NA (PORCINE) 100 MG/1 ML DISP.SYRIN SQ SCH (09:16)
[2017-04-29] MEDS: LYTES/YERBA SANTA 240 ML BOTTLE MM SCH (09:17)
[2017-04-29] MEDS: AMIODARONE HCL 200 MG TABLET (FP) PO SCH ×2 (09:18→21:12)
[2017-04-29] MEDS ORDERED: MAGNESIUM SULF 50% (8.12 MEQ/2 ML-1 GM VIAL) ONE (09:21)
--- NOTE | 2017-04-29 09:44 | PN ---
Progress Note, Physician History of Present Illness: "Patient is an 86 year old female with a significant past medical history of CAD w/ stents, afib on xarelto, HFpEF (EF 67.8%, 2016) and HLD who presents to the ED for tachycardia. Patient was seen in cardiology clinic today and was found on EKG to be in afib with RVR with a rate of 160. She was subsequently sent to ER for management. Patient currently has no complaints or pain while in the ED. Denies ever having CP/SOB/palpitations. Denies F/C/N/V/D. Reports compliance with all of her medications. Patient presented to the office Off amiodarone and with reduced dose of bb. 2 weeks h/o of decompensated chf rx with increased dose of lasix. yesterday vissiting nurse noted pulse 160's, ems called, confirmed, patient refused admission to hospital yesterday. Today in my office she presented asymptomatic with +3 lower extremity edema and AF with RVR 167 bpm. PMH ASHD s/p PTCA SANNA mLAD PTCA D2 2007 Atrial fibrillation HHD HTN Positive MIBI in the past refused repeated c. cath - Current Medication List Current Medications: Active Medications Amiodarone HCl (Cordarone -) 400 mg PO BID [facility] Last Admin: 04/29/17 09:18 Dose: 400 mg Enoxaparin Sodium (Lovenox -) 85 mg SQ DAILY [facility] Last Admin: 04/29/17 09:16 Dose: 85 mg Fentanyl (Sublimaze Injection -) 50 mcg IVPUSH Q1H PRN PRN Reason: PAIN Stop: 04/30/17 08:44 Last Admin: 04/29/17 08:39 Dose: 50 mcg Ampicillin Sodium 2 gm/ Sodium (Chloride) 100 mls @ 200 mls/hr IVPB Q4H-IV [facility] Last Admin: 04/29/17 09:16 Dose: 200 mls/hr Gentamicin Sulfate 30 mg/ (Sodium Chloride) 100.75 mls @ 100.75 mls/hr IVPB Q8H -IV [facility] Last Admin: 04/29/17 02:44 Dose: 100.75 mls/hr Propofol (Diprivan -) 1,000,000 mcg in 100 mls @ 1.546 mls/hr IVPB TITR [facility]; 5 MCG/KG/MIN PRN Reason: Protocol Last Titration: 04/29/17 08:41 Dose: 0 mcg/kg/min, 0 mls/hr Famotidine/Sodium Chloride (Pepcid 20 Mg Premixed Ivpb -) 20 mg in 50 mls @ 100 mls/hr IVPB BID [facility] Last Admin: 04/29/17 09:15 Dose: 100 mls/hr Norepinephrine Bitartrate 16, (000 mcg/ Sodium Chloride) 1,000 mls @ 18.75 mls/ hr IV TITR [facility]; 5 MCG/MIN PRN Reason: Protocol Last Admin: 04/28/17 21:37 Dose: 8 mcg/min, 30 mls/hr Dobutamine HCl 250,000 mcg/ (Sodium Chloride) 250 mls @ 17.98 mls/hr IV TITR [facility]; 5 MCG/KG/MIN PRN Reason: Protocol Last Admin: 04/28/17 14:46 Dose: 3 mcg/kg/min, 10.79 mls/hr Levothyroxine Sodium (Synthroid -) 75 mcg PO DAILY@0700 [facility] Last Admin: 04/29/17 07:22 Dose: 75 mcg Melatonin (Melatonin) 5 mg PO HS PRN PRN Reason: INSOMNIA Last Admin: 04/19/17 23:05 Dose: 5 mg Saliva Substitute (Mouthkote Solution -) 1 applic MM DAILY [facility] Last Admin: 04/29/17 09:17 Dose: 1 applic - Objective Vital Signs: Vital Signs Temperature 97.5 F L 04/29/17 06:00 Pulse Rate 115 H 04/29/17 08:33 Respiratory Rate 27 H 04/29/17 08:33 Blood Pressure 120/98 04/29/17 08:00 O2 Sat by Pulse Oximetry (%) 96 04/29/17 08:33 Eyes: Yes: WNL, Conjunctiva Clear, EOM Intact HENT: Yes: WNL, Atraumatic, Normocephalic Neck: Yes: WNL, Supple, Trachea Midline Cardiovascular: Yes: Pulse Irregular, S1, S2 Respiratory: Yes: Intubated, Mechanically Ventilated Gastrointestinal: Yes: WNL, Normal Bowel Sounds Genitourinary: Yes: WNL Musculoskeletal: Yes: WNL Extremities: Yes: WNL Edema: Yes Edema: LLE: 1+, RLE: 1+ Integumentary: Yes: WNL ...Motor Strength: WNL Psychiatric: Yes: WNL Labs: CBC, BMP 04/29/17 06:15 04/29/17 06:15 INR, PTT INR 1.07 (0.82-1.09) 04/26/17 06:10 Fibrinogen 252.0 mg/dL (238-498) 04/23/17 05:15 Problem List - Problems (1) Acute on chronic systolic and diastolic heart failure, NYHA class 2 Code(s): I50.43 - ACUTE ON CHRONIC COMBINED SYSTOLIC AND DIASTOLIC HRT FAIL (2) CAD (coronary artery disease) Code(s): I25.10 - ATHSCL HEART DISEASE OF [place] CORONARY ARTERY W/O ANG PCTRS (3) Dizziness Code(s): R42 - DIZZINESS AND GIDDINESS (4) Afib Code(s): I48.91 - UNSPECIFIED ATRIAL FIBRILLATION (5) CHF (congestive heart failure) Code(s): I50.9 - HEART FAILURE, UNSPECIFIED Assessment/Plan - Problems (1) Atrial fibrillation with RVR Assessment/Plan: . repleted Mg and PO4. Reduce amiodarone to 400 mg daily for a week, with plan to eventually be on maintenance of 100 mg daily. Dobutamine dose lowered due to tachycardia. Code(s): I48.91 - UNSPECIFIED ATRIAL FIBRILLATION (2) Acute on chronic systolic and diastolic heart failure, NYHA class 2 Assessment/Plan: On amiodarone and metoprolol. Problematic giving other agents (e.g. ACEI, RAAS, hydralazine + isordil) at the present time due to renal insufficiency and relative hypotension. ECHO: severely reduced LVEF. F/u BUn/Cr, electrolytes, Is and Os, daily weight. Code(s): I50.43 - ACUTE ON CHRONIC COMBINED SYSTOLIC AND DIASTOLIC HRT FAIL (3) CAD (coronary artery disease) Code(s): I25.10 - ATHSCL HEART DISEASE OF [place] CORONARY ARTERY W/O ANG PCTRS (4) Hypothyroid Assessment/Plan: elevated TSH; free T4 is also mildly elevated. Following thyroid function is especially important when on amiodarone (dose to be reduced to 400 mg daily for a week, with plan to maintain on 100 mg daily). Code(s): E03.9 - HYPOTHYROIDISM, UNSPECIFIED (5) Renal insufficiency Assessment/Plan: f/u carefully (on furosemide for acute CHF); avoid excessive dehydration. Code(s): N28.9 - DISORDER OF KIDNEY AND URETER, UNSPECIFIED (6) Acute respiratory failure Assessment/Plan: on antibiotics for septic shock steroids, O2 per shipping associate.. Code(s): J96.00 - ACUTE RESPIRATORY FAILURE, UNSP W HYPOXIA OR HYPERCAPNIA (7) Septic shock Assessment/Plan: remains febrile; Listeria meningitis. Antibiotics per ID. Fluids; monitor Is and Os, daily weight, BUN?cr, electrolytes. On norepinehprine; LVEF is severely reduced, (and pt known to have significant MR)--> dobuamine.for attempt to improve cardiac output (dose lowered due to tachycardia). Code(s): A41.9 - SEPSIS, UNSPECIFIED ORGANISM; R65.21 - SEVERE SEPSIS WITH SEPTIC SHOCK (8) CHF (congestive heart failure) Assessment/Plan: Severe systolic LV dysfunction, with severe pulmonary HTN. on metoprolol and amiodarone. Furosemide held (sepsis; hypotension). On norepinephrine IV for pressure support; on dobutamine to help improve cardiac output. F/u BUN/ Cr, electrolytes, daily weight, Is and Os. Code(s): I50.9 - HEART FAILURE, UNSPECIFIED
[2017-04-29] MEDS ORDERED: HYDROmorphone HCL CARPU-JECT 1 MG/1 ML DISP.SYRIN ONE (11:44)
[2017-04-29] MEDS ORDERED: HYDROmorphone HCL CARPU-JECT 1 MG/1 ML DISP.SYRIN IVPUSH ONE (12:00)
[2017-04-29] MEDS ORDERED: FUROSEMIDE 40 MG/4 ML INJECTABLE VIAL ONE (14:10)
[2017-04-29] MEDS ORDERED: CALCIUM GLUCONATE 10% - 1,000 MG/10 ML VIAL IVPB ONE (22:00)
[2017-04-30] MEDS: AMPICILLIN - 2 GM in SODIUM CHLORIDE 100 ML IVPB SCH ×6 (02:35→21:21)
[2017-04-30] MEDS: SODIUM CHLORIDE IVPB SCH ×3 (03:00→17:14)
[2017-04-30] MEDS: GENTAMICIN IVPB SCH ×3 (03:00→17:14)
[2017-04-30] MEDS: NOREPINEPHRINE BITARTRATE 16,000 MCG in SODIUM CHLORIDE 0.45% 984 ML IV SCH (05:54)
--- NOTE | 2017-04-30 05:58 | PN ---
Physical Exam: SUBJECTIVE: Patient seen and examined by me this AM - Pt remains intubated, off sedation. WBC normalized yesterday. ABG 7.52/30/66/ 24. Afebrile, vitals stable. Responds to voice, moving all extremities. nonverbal. Satting mid 80s on 40% FIO2. Tolerating feeds, vent setting 12/350/40 %/5. Tele notable only for afib. minimal secretions, deep suctioning performed. Poor UOP overnight after stopping pressors. - Patient off sedation overnight. More agitated this AM, overbreathing vent. 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 OBJECTIVE: Vital Signs Intake & Output 04/27/17 04/28/17 04/29/17 04/30/17 23:59 23:59 23:59 23:59 Intake Total 4072.2 3383 2886.0 1120 Output Total 1000 1200 2550 200 Balance 3072.2 2183 336.0 920 Weight 59.965 kg 63.3 kg 64.3 kg 65.68 kg Period Temp Pulse Resp BP Sys/Gandara Pulse Ox Last 24 Hr 97.3 F-98.6 F 108-127 20-38 85-120/50-98 92-96 GENERAL: Intubated. Responds to voice. HEAD: NG tube in place. Normal with no signs of trauma. EYES: Pupils pinpoint, reactive to light; sclera icteric. No lid lag. EARS, NOSE, THROAT: Ears normal, nares patent. ETT tube at lip. Moist mucous membranes. NECK: No lymphadenopathy, or masses. LUNGS: less congested, decreased breath sounds at bases. Mechanical breath sounds. No accessory muscle use. HEART: Irregularly Irregular, normal S1 and S2 without murmur, rub or gallop. ABDOMEN: Soft, nontender, not distended, normoactive bowel sounds, no guarding, no rebound, no masses. No hepatomegaly or splenomegaly. MUSCULOSKELETAL: Normal range of motion at all joints. No bony deformities or tenderness. No CVA tenderness. UPPER EXTREMITIES: 1+ radial pulses, WWP. No cyanosis. No clubbing. 3+ peripheral edema BL. LOWER EXTREMITIES: WWP. 3+ pitting edema BL to knees. 1+ DP, PT pulses BL. No calf tenderness. BL superficial varicose veins on anterior shins. NEUROLOGICAL: Responds to voice, moving all four extremities. Brainstem reflexes intact. Negative Babinskis BL. SKIN: Warm, dry, normal turgor, no rashes or lesions noted, normal capillary refill. Laboratory Results - last 24 hr CBC, BMP 04/30/17 05:55 04/30/17 05:55 04/29/17 06:15 04/29/17 06:15 04/29/17 04/29/17 04/29/17 06:15 06:15 06:15 WBC 9.5 RBC 4.30 Hgb 11.7 Hct 36.2 MCV 84.2 MCH 27.3 MCHC 32.4 RDW 18.3 H Plt Count 162 MPV 8.8 Neutrophils % 96.7 H Lymphocytes % 1.8 L D Monocytes % 1.4 L Eosinophils % 0.1 Basophils % 0.0 Puncture Site ABG pH ABG pCO2 at Pt Temp ABG pO2 at Pt Temp ABG HCO3 ABG O2 Sat (Measured) ABG O2 Content ABG Base Excess José Miguel Test O2 Delivery Device Oxygen Flow Rate Vent Mode Vent Rate Mechanical Rate PEEP Pressure Support Vent Sodium 133 L Potassium 3.9 Chloride 100 Carbon Dioxide 25 Anion Gap 8 BUN 14 Creatinine 0.5 L Creat Clearance w eGFR > 60 Random Glucose 164 H Calcium 6.2 L* Phosphorus 2.1 L Magnesium 1.7 L Total Bilirubin 0.8 AST 47 H ALT 21 Alkaline Phosphatase 236 H Total Protein 3.5 L Albumin 0.9 L Gentamicin Trough 2.1 H 04/29/17 04/29/17 06:50 09:15 WBC RBC Hgb Hct MCV MCH MCHC RDW Plt Count MPV Neutrophils % Lymphocytes % Monocytes % Eosinophils % Basophils % Puncture Site Right radial ABG pH 7.52 H ABG pCO2 at Pt Temp 30.4 L ABG pO2 at Pt Temp 66.3 L D ABG HCO3 24.4 ABG O2 Sat (Measured) 94.3 ABG O2 Content 15.4 ABG Base Excess 2.3 H José Miguel Test Positive O2 Delivery Device Mech vent Oxygen Flow Rate 40% Vent Mode A/c Vent Rate 12 Mechanical Rate Yes PEEP 5.0 Pressure Support Vent 350 Sodium Potassium Chloride Carbon Dioxide Anion Gap BUN Creatinine Creat Clearance w eGFR Random Glucose Calcium Phosphorus Magnesium Total Bilirubin AST ALT Alkaline Phosphatase Total Protein Albumin Gentamicin Trough 1.7 Active Medications Generic Name Dose Route Start Last Admin Trade Name Freq PRN Reason Stop Dose Admin Amiodarone HCl 400 mg 04/20/17 10:00 04/29/17 21:12 Cordarone - PO 400 mg BID SIMON Administration Enoxaparin Sodium 85 mg 04/27/17 10:06 04/29/17 09:16 Lovenox - SQ 85 mg DAILY SIMON Administration Fentanyl 50 mcg 04/29/17 08:32 04/30/17 05:15 Sublimaze Injection - IVPUSH 04/30/17 08:44 50 mcg Q1H PRN Administration PAIN Ampicillin Sodium 2 gm/ Sodium 100 mls @ 200 mls/hr 04/22/17 12:00 04/30/17 02:35 Chloride IVPB 200 mls/hr Q4H-IV SIMON Administration Gentamicin Sulfate 30 mg/ 100.75 mls @ 100.75 mls/hr 04/22/17 12:00 04/30/17 03:00 Sodium Chloride IVPB 100.75 mls/hr Q8H-IV SIMON Administration Famotidine/Sodium Chloride 20 mg in 50 mls @ 100 mls/hr 04/26/17 22:00 21:11 Pepcid 20 Mg Premixed Ivpb - IVPB 100 mls/hr BID SIMON Administration Norepinephrine Bitartrate 16, 1,000 mls @ 18.75 mls/hr 04/26/17 20:15 05:54 000 mcg/ Sodium Chloride IV Not Given TITR SIMON Protocol 5 MCG/MIN Levothyroxine Sodium 75 mcg 04/15/17 07:00 04/29/17 07:22 Synthroid - PO 75 mcg DAILY@0700 SIMON Administration Melatonin 5 mg 04/18/17 16:54 04/19/17 23:05 Melatonin PO 5 mg HS PRN Administration INSOMNIA Saliva Substitute 1 applic 04/20/17 17:15 04/29/17 09:17 Mouthkote Solution - MM 1 applic DAILY SIMON Administration Microbiology 04/25/17 11:15 Blood - Peripheral Venous Blood Culture - Preliminary NO GROWTH OBTAINED AFTER 96 HOURS, INCUBATION TO CONTINUE FOR 1 DAYS. 04/25/17 09:35 Blood - Peripheral Venous Blood Culture - Preliminary NO GROWTH OBTAINED AFTER 96 HOURS, INCUBATION TO CONTINUE FOR 1 DAYS. 04/20/17 09:15 Blood - Peripheral Venous Blood Culture - Preliminary Listeria Monocytogenes 04/25/17 11:00 Sputum - Endotrachea Suction/Ventilator Gram Stain - Final 04/25/17 11:00 Sputum - Endotrachea Suction/Ventilator Sputum Culture - Final Yeast Like Organism 04/22/17 11:34 Blood - Peripheral Venous Blood Culture - Final NO GROWTH AFTER 5 DAYS INCUBATION 04/22/17 11:29 Blood - Peripheral Venous Blood Culture - Final NO GROWTH AFTER 5 DAYS INCUBATION 04/22/17 16:45 Cerebral Spinal Fluid - Lumbar Puncture AFB Smear Concentration - Final 04/25/17 11:18 Urine - Urine Judge Urine Culture - Final NO GROWTH OBTAINED 04/22/17 16:45 Cerebral Spinal Fluid - Lumbar Puncture Gram Stain - Final 04/22/17 16:45 Cerebral Spinal Fluid - Lumbar Puncture CSF Culture - Final NO GROWTH AFTER 48 HOURS INCUBATION 04/20/17 08:30 Blood - Peripheral Venous Blood Culture - Final Listeria Monocytogenes 04/23/17 10:05 Urine For Antigen Detection Legionella Antigen - Final 04/23/17 10:05 Urine For Antigen Detection Streptococcus pneumoniae Antigen (M - Final 04/22/17 16:45 Cerebral Spinal Fluid - Lumbar Puncture Streptococcus pneumoniae Antigen (M - Final 04/18/17 08:00 Blood - Peripheral Venous Blood Culture - Final NO GROWTH AFTER 5 DAYS INCUBATION 04/18/17 08:00 Blood - Peripheral Venous Blood Culture - Final NO GROWTH AFTER 5 DAYS INCUBATION 04/20/17 11:05 Urine - Urine - Catheterized Urine Culture - Final NO GROWTH OBTAINED 04/20/17 07:55 Nasopharyngeal Swab Influenza Types A,B Antigen (SÁNCHEZ) - Final 04/20/17 07:55 Nasopharyngeal Swab - Final 04/15/17 04:30 Nasopharyngeal Swab Influenza Types A,B Antigen (SÁNCHEZ) - Final 04/15/17 04:30 Nasopharyngeal Swab - Final Prior echo in 2016 -> pulm htn, severe TR, EF ~67%, dilated atria Echo 02/10 - LVEF reduced in setting of afib with RVR, moderate MR, moderate TR , RV pressure 40-50, LAE Persantine stress test 02/14 - relatively unremarkable with minimal ischemic changes. EKG 04/14 - Afib w/ RVR, no ST changes, TWI in lateral leads, Rate 164 CXR 04/14 - Cardiomegaly, mild congestion, BL pleural effusions ABdominal U/S 04/16 - R pleural effusion; fatty infiltrates of liver; atrophic kidneys with no evidence of hydronephrosis EKG 04/17 - Afib w/ RVR. rate 110, NAD, QTC 446 CXR 04/18 - no change CT head 04/19 - no acute bleed or mass effect; mild atropy EKG 04/19 - Afib/flutter, rate of 106, NAD, QTC 470, no TW changes CXR 04/20 - Right pleural effusion with compressive atelectasis. Elevated left diaphragm. Questionable left pleural effusion. No pneumothorax is seen CXR 04/21 - Since the prior study of 04/20/2017, the feeding tube is been inserted and the tip is in the left upper quadrant/stomach. The patient is rotated to the right. There is a large heart, unfolded aorta and some bibasilar changes. Correlation recommended. CXR 04/22 - Since prior study of 04/21/2017, the feeding tube remains in place. There appears to be a progressive left infiltrate with fluid and/or atelectasis. There is a large heart with sclerotic knob. Correlation recommended. Ab/pelvis CT 04/21 - Impression: 1. Circumferentially prominent wall in the ascending colon and hepatic flexure may be attributed to underdistention or an infectious versus inflammatory colitis. Please correlate clinically. 2. Gastric tube in proper position. No bowel obstruction. No evidence of diverticulitis. 3. Cholelithiasis and/or sludge within the gallbladder. Moderate distention of the gallbladder may be physiologic and/or secondary to dyskinesia. Gallbladder wall thickening is nonspecific and may be secondary to right heart failure, cholecystitis and/or adjacent right upper quadrant inflammatory processes. Please correlate clinically and with right upper quadrant sonogram. 4. Extensive anasarca/body wall edema. Diffuse mesenteric haziness, confluent presacral fluid and free fluid within the pelvis may be secondary to heart failure. Please correlate clinically. 5. An approximately 3.6 x 2.7 cm indeterminant left adrenal gland mass is nonspecific with a broad differential including benign and malignant lesions. 6. Multichamber cardiomegaly with predominant enlargement of the right atrium. Please correlate with echocardiogram. 7. Incompletely imaged layering pleural effusions with airspace opacities in both lung bases. Please correlate with dedicated imaging of the chest. 8. T12 and L4 compression deformities as described above are of indeterminant chronicity. CXR 04/24 - Impression: NG tube above the diaphragm and needs to be advanced. Other tubes and lines in place. Left perihilar infiltration and left retrocardiac opacity. CXR 04/24 PM - Impression: NG tube above the diaphragm and needs to be advanced. Other tubes and lines in place. Left perihilar infiltration and left retrocardiac opacity. CXR 04/25 - Impression: Increase in bibasilar opacities and left effusion. Continuing clinical and radiographic evaluation suggested. CXR 04/26 - Impression: Endotracheal tube position as discussed above. The remainder of the study demonstrates no obvious interval change. CXR 04/27 - IMPRESSION: 1. Endotracheal tube placement as described above. 2. No significant change in CHF since 04/26/2017. CXR 04/28 - IMPRESSION: No significant change with NG tube placement as described above. Subsequently, a single frontal portable projection of the chest at 7:33 AM is submitted. Since a prior study of earlier in the day, there has been no significant change. An endotracheal tube, right-sided triple-lumen catheter and nasogastric tube remain in situ. The heart size remains enlarged with residual pulmonary vascular congestion and moderate bilateral pleural effusions. ASSESSMENT/PLAN: 86 yo F w/ h/o CAD w/ stents, afib on xarelto, HFpEF (EF 67.8%, 2016) and HLD who was sent from her staff trainer's office to ED due to office EKG notable for Afib with RVR w/ rate in 160s. Pt remains very ill, however is hemodynamically more stable, requiring less pressor support. Currently off sedation, remains intubated. Prognosis still remains very poor given multiple underlying comorbities. #Suspected meningitis/sepsis- Blood culture 06/21 + for listeria; pt presentation clinically consistent with meningitis (likely listeria) - Afebrile overnight. repeat Blood Cx's negative from 04/25; Sputum culture + for yeast like organism - WBC uptrending 9.5 -> 11.1 today - Neurology aware, following - CSF profile with neutrophilia, low glucose (15), and elevated protein (352). Xanthochromic, PCR presumptively positive for Strep pneumo antigen. Pt recently offered Prevnar vaccine as inpt, however documented that pt refused. 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; Gram stain negative for organisms - F/u remaining CSF panel -> cell count, culture, AFB, toxo igg, pending bacterial PCRs - Day 9 high dose Amp/gent for suspected listeria meningitis - ID consult, recs continually appreciated - Strep pneumo, legionella urine ag negative - trend WBC, fever - Off sedation overnight; Tachypneic to high 30s, overbreathing vent; restarted on fentanyl gtt - flu negative - off levo gtt; Restarted DBT gtt this AM given poor UOP overnight #hypoxic respiratory failure - secondary to sepsis, CHF - ABG 7.52/30/66/24 yesterday - Vent support; Pt satting as low as 82% on FiO2 of 70% - CXR w BL congestion, chronic BL pleural effusions 04/28; no significant change #acute on chronic systolic CHF - CT abdomen with diffuse anasarca on 04/21; - Pt w/ improved perfusion, UOP on dbt gtt; restarted this AM - daily weights, I&O's - Off BB - cont to monitor closely for arrhythmias on modeling and simulation analyst gtt #Afib with RVR- -c/w Amiodarone 400mg PO TID; BB held due to hypotension -Pt on lovenox 85mg daily sq - Plan for coumadin/heparin bridging vs. xarelto per cardiology after pt stabilizes #Transaminitis - LFTs normalized, T bili 0.9 today - Alk phos increased to 321 - Trend LFTs #Hyponatremia - 132 today - Trend, daily BMPs #Hypophosphatemia- 2.8 today - Continue to trend #Hypokalemia - resolved #SELMA- resolved #HTN -hold BP meds #hypothyroidism - c/w Synthroid 75 mcg qd #DVT PPX lovenox daily #FEN: Free water with tube feeds Daily BMP NG feeds per nutrition Full code Dispo to ICU for further management. Prognosis very poor. Plan for additional GOC discussion with family. Plan d/w attending, Dr. Carlos A Steele, PGY1 Visit type - Emergency Visit Emergency Visit: Yes ED Registration Date: 04/14/17 Care time: The patient presented to the Emergency Department on the above date and was hospitalized for further evaluation of their emergent condition. - New Patient This patient is new to me today: No - Critical Care Critical Care patient: Yes Total Critical Care Time (in minutes): 35 Critical Care Statement: The care of this patient involved high complexity decision making to prevent further life threatening deterioration of the patient 's condition and/or to evaluate & treat vital organ system(s) failure or risk of failure.
[2017-04-30] MEDS: LEVOTHYROXINE NA 75 MCG TABLET (FP) PO SCH (05:59)
[2017-04-30 06:09] LABS: BASO % 0.2 % (0-2.0); HEMATOCRIT 37.9 % (32.4-45.2); HEMOGLOBIN 12.1 GM/dL (10.7-15.3); LYMPH % 1.1 % (8-40); MCH 27.2 pg (25.7-33.7); MEAN PLT VOLUME 9.5 fl (7.5-11.1); MONO % 0.9 % (3.8-10.2); NEUT % 97.8 % (42.8-82.8); PLATELET COUNT 197 K/MM3 (134-434); RBC 4.46 M/mm3 (3.60-5.2); RDW 18.5 % (11.6-15.6); WHITE BLOOD COUNT 11.1 K/mm3 (4.0-10.0)
[2017-04-30 06:37] LABS: CHLORIDE 98 mmol/L (98-107); POTASSIUM 3.9 mmol/L (3.5-5.1); SODIUM 132 mmol/L (136-145)
[2017-04-30 06:47] LABS: ALK PHOS 321 U/L (45-117); ANION GAP 8 (8-16); BILIRUBIN,TOTAL 0.7 mg/dL (0.2-1.0); BLOOD UREA NITROGEN 17 mg/dL (7-18); CO2 26 mmol/L (21-32); CREATININE 0.5 mg/dL (0.55-1.02); GLUCOSE,RANDOM 165 mg/dL (74-106); PHOSPHOROUS 2.8 mg/dL (2.5-4.9); SGOT/AST 60 U/L (15-37); SGPT/ALT 26 U/L (12-78); TOT PROT 3.9 g/dl (6.4-8.2)
[2017-04-30 07:34] LABS: CALCIUM 6.3 mg/dL (8.5-10.1)
[2017-04-30] MEDS ORDERED: PT OWN MED DRAWER 7, Y5N ONE ×3 (07:56→17:07)
[2017-04-30] MEDS ORDERED: DOBUTAMINE 250 MG/D5W - 250,000 MCG/250 ML INFUS.BAG ONE (08:25)
[2017-04-30] MEDS ORDERED: fentaNYL CITRATE 250 MCG/5 ML VIAL ONE ×3 (08:26→22:36)
--- NOTE | 2017-04-30 08:26 | PN ---
Teaching Attending Note Name of Resident: Luisito Steele ATTENDING PHYSICIAN STATEMENT I saw and evaluated the patient. I reviewed the resident's note and discussed the case with the resident. I agree with the resident's findings and plan as documented. SUBJECTIVE:alert, opens eye to verbal stimuli OBJECTIVE: Last Vital Signs Temp Pulse Resp BP Pulse Ox 98.4 F 111 H 35 H 90/73 95 04/30/17 06:00 04/30/17 06:00 04/30/17 08:03 04/30/17 06:00 04/29/17 20:17 Intake & Output 04/27/17 04/28/17 04/29/17 04/30/17 23:59 23:59 23:59 23:59 Intake Total 4072.2 3383 2886.0 1120 Output Total 1000 1200 2550 200 Balance 3072.2 2183 336.0 920 Weight 132 lb 3.2 oz 139 lb 8.842 oz 141 lb 12.116 oz 144 lb 12.8 oz General taachypnic, tachycardix, using accessory muscles to breathe CV S1 s2 irregular tachycardic Lungs coarse diffusely Abdomen soft diffusley tender Extremities 4+ pitting edema all extremities, warm neuro opens eyes to verbal stimuli., does not follow commands ASSESSMENT AND PLAN: 86yo F with PMH AFib on xarelto, CAD s/p stents, hypothyroid, Systolic CHF, dyslipidemia sent to the ER by her critical care cns for afib with RVR 1. 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 levo turned off yesterday morning. holding pressure, however UOP hsa diminshed overnight. on Ampicillin/Gent day 8. ID on board 2. Acute hypoxic respiratory failure from septic shock and likely systolic HF exacerbation from volume resuscitation-tachypnic breathing 42 on vent. tachycardic due to pain. will re-start fenatnyl ggt. cont full vent support. vent management from ICU team. 3. Afib with RVR-continues to have RVR bursts.cont po at this time. cardio on board. Xarelto on hold due to coagulopathy 4. Acute Systolic Heart failure exacerbation- Increase in 3 lbs weight from yesterday. was improving on dobutamine ggt as EF is extremely poor. res-start ggt. intermittent lasix IV as tolerated by BP. 5. Coagulopathy, elevated INR, suspect from hepatic congestion/amiodarone- resolved 6. Acute transaminitis-likely congestive hepatopathy. now resolved 7. Hypothyoridism- on LT4 8. SELMA, prerenal likely from CKD on her CKD (from poor EF)- resolved 9. Hypomagnesemia- resolved 10. Pseduohypocalcemia- Corrected CA 8.5 11. Severe hypophosphatemia- resolved 12. DVT ppx- lovenox 13. Poor overall prognosis. full code at this time The care of this patient involved high complexity decision making to prevent further life threatening deterioration of the patient's condition and/or to evaluate & treat vital organ system(s) failure or risk of failure. 40 minutes
[2017-04-30] MEDS: DOBUTAMINE HCL 250,000 MCG in SODIUM CHLORIDE 230 ML IV SCH (08:57)
[2017-04-30] MEDS: FENTANYL INJECTION 500 MCG in DEXTROSE 5%-WATER - 90 ML IVPB SCH (08:58)
[2017-04-30] MEDS: FAMOTIDINE 20 MG/50 ML IVPB 20 MG/50 ML MG IVPB SCH ×2 (09:03→21:23)
[2017-04-30] MEDS: AMIODARONE HCL 200 MG TABLET (FP) PO SCH ×2 (09:04→21:23)
[2017-04-30] MEDS: LYTES/YERBA SANTA 240 ML BOTTLE MM SCH (09:07)
[2017-04-30] MEDS: ENOXAPARIN NA (PORCINE) 100 MG/1 ML DISP.SYRIN SQ SCH (09:13)
--- NOTE | 2017-04-30 09:41 | PN ---
Progress Note, Physician History of Present Illness: "Patient is an 86 year old female with a significant past medical history of CAD w/ stents, afib on xarelto, HFpEF (EF 67.8%, 2016) and HLD who presents to the ED for tachycardia. Patient was seen in cardiology clinic today and was found on EKG to be in afib with RVR with a rate of 160. She was subsequently sent to ER for management. Patient currently has no complaints or pain while in the ED. Denies ever having CP/SOB/palpitations. Denies F/C/N/V/D. Reports compliance with all of her medications. Patient presented to the office Off amiodarone and with reduced dose of bb. 2 weeks h/o of decompensated chf rx with increased dose of lasix. yesterday vissiting nurse noted pulse 160's, ems called, confirmed, patient refused admission to hospital yesterday. Today in my office she presented asymptomatic with +3 lower extremity edema and AF with RVR 167 bpm. PMH ASHD s/p PTCA SANNA mLAD PTCA D2 2007 Atrial fibrillation HHD HTN Positive MIBI in the past refused repeated c. cath - Current Medication List Current Medications: Active Medications Amiodarone HCl (Cordarone -) 400 mg PO BID [facility] Last Admin: 04/30/17 09:04 Dose: 400 mg Enoxaparin Sodium (Lovenox -) 85 mg SQ DAILY [facility] Last Admin: 04/30/17 09:13 Dose: 85 mg Ampicillin Sodium 2 gm/ Sodium (Chloride) 100 mls @ 200 mls/hr IVPB Q4H-IV SIMON Last Admin: 04/30/17 09:04 Dose: 200 mls/hr Gentamicin Sulfate 30 mg/ (Sodium Chloride) 100.75 mls @ 100.75 mls/hr IVPB Q8H -IV SIMON Last Admin: 04/30/17 09:08 Dose: 100.75 mls/hr Famotidine/Sodium Chloride (Pepcid 20 Mg Premixed Ivpb -) 20 mg in 50 mls @ 100 mls/hr IVPB BID SIMON Last Admin: 04/30/17 09:03 Dose: 100 mls/hr Dobutamine HCl 250,000 mcg/ (Sodium Chloride) 250 mls @ 19.7 mls/hr IV TITR SIMON ; 5 MCG/KG/MIN PRN Reason: Protocol Last Admin: 04/30/17 08:57 Dose: 5 mcg/kg/min, 19.7 mls/hr Fentanyl 500 mcg/ Dextrose 100 mls @ 10 mls/hr IVPB TITR SIMON; 50 MCG/HR PRN Reason: Protocol Last Admin: 04/30/17 08:58 Dose: 50 mcg/hr, 10 mls/hr Levothyroxine Sodium (Synthroid -) 75 mcg PO DAILY@0700 SIMON Last Admin: 04/30/17 05:59 Dose: 75 mcg Melatonin (Melatonin) 5 mg PO HS PRN PRN Reason: INSOMNIA Last Admin: 04/19/17 23:05 Dose: 5 mg Saliva Substitute (Mouthkote Solution -) 1 applic MM DAILY SIMON Last Admin: 04/30/17 09:07 Dose: 1 applic - Objective Vital Signs: Vital Signs Temperature 98.4 F 04/30/17 06:00 Pulse Rate 123 H 04/30/17 08:00 Respiratory Rate 35 H 04/30/17 09:00 Blood Pressure 100/73 04/30/17 08:57 O2 Sat by Pulse Oximetry (%) 95 04/29/17 20:17 Eyes: Yes: WNL, Conjunctiva Clear, EOM Intact HENT: Yes: WNL, Atraumatic, Normocephalic Neck: Yes: WNL, Supple, Trachea Midline Cardiovascular: Yes: Pulse Irregular, S1, S2 Respiratory: Yes: Intubated, Mechanically Ventilated Gastrointestinal: Yes: WNL, Normal Bowel Sounds Genitourinary: Yes: WNL Musculoskeletal: Yes: WNL Extremities: Yes: WNL Edema: Yes Edema: LLE: 3+, RLE: 3+ Integumentary: Yes: WNL ...Motor Strength: WNL Psychiatric: Yes: WNL Labs: CBC, BMP 04/30/17 05:55 04/30/17 05:55 INR, PTT INR 1.07 (0.82-1.09) 04/26/17 06:10 Fibrinogen 252.0 mg/dL (238-498) 04/23/17 05:15 Problem List - Problems (1) Acute on chronic systolic and diastolic heart failure, NYHA class 2 Code(s): I50.43 - ACUTE ON CHRONIC COMBINED SYSTOLIC AND DIASTOLIC HRT FAIL (2) CAD (coronary artery disease) Code(s): I25.10 - ATHSCL HEART DISEASE OF [place] CORONARY ARTERY W/O ANG PCTRS (3) Dizziness Code(s): R42 - DIZZINESS AND GIDDINESS (4) Afib Code(s): I48.91 - UNSPECIFIED ATRIAL FIBRILLATION (5) CHF (congestive heart failure) Code(s): I50.9 - HEART FAILURE, UNSPECIFIED Assessment/Plan - Problems (1) Atrial fibrillation with RVR Assessment/Plan: . repleted Mg and PO4. Reduce amiodarone to 400 mg daily for a week, with plan to eventually be on maintenance of 100 mg daily. Dobutamine dose lowered due to tachycardia. Code(s): I48.91 - UNSPECIFIED ATRIAL FIBRILLATION (2) Acute on chronic systolic and diastolic heart failure, NYHA class 2 Assessment/Plan: On amiodarone and metoprolol. Problematic giving other agents (e.g. ACEI, RAAS, hydralazine + isordil) at the present time due to renal insufficiency and relative hypotension. ECHO: severely reduced LVEF. F/u BUn/Cr, electrolytes, Is and Os, daily weight. Code(s): I50.43 - ACUTE ON CHRONIC COMBINED SYSTOLIC AND DIASTOLIC HRT FAIL (3) CAD (coronary artery disease) Code(s): I25.10 - ATHSCL HEART DISEASE OF [place] CORONARY ARTERY W/O ANG PCTRS (4) Hypothyroid Assessment/Plan: elevated TSH; free T4 is also mildly elevated. Following thyroid function is especially important when on amiodarone (dose to be reduced to 400 mg daily for a week, with plan to maintain on 100 mg daily). Code(s): E03.9 - HYPOTHYROIDISM, UNSPECIFIED (5) Renal insufficiency Assessment/Plan: f/u carefully (on furosemide for acute CHF); avoid excessive dehydration. Code(s): N28.9 - DISORDER OF KIDNEY AND URETER, UNSPECIFIED (6) Acute respiratory failure Assessment/Plan: on antibiotics for septic shock steroids, O2 per knowledge management consultant.. Code(s): J96.00 - ACUTE RESPIRATORY FAILURE, UNSP W HYPOXIA OR HYPERCAPNIA (7) Septic shock Assessment/Plan: remains febrile; Listeria meningitis. Antibiotics per ID. Fluids; monitor Is and Os, daily weight, BUN?cr, electrolytes. off pressors LVEF is severely reduced, (and pt known to have significant MR)-- > restart dobuamine.for attempt to improve cardiac output (dose lowered due to tachycardia). Code(s): A41.9 - SEPSIS, UNSPECIFIED ORGANISM; R65.21 - SEVERE SEPSIS WITH SEPTIC SHOCK (8) CHF (congestive heart failure) Assessment/Plan: Severe systolic LV dysfunction, with severe pulmonary HTN. on metoprolol and amiodarone. Furosemide held (sepsis; hypotension). On norepinephrine IV for pressure support; on dobutamine to help improve cardiac output. F/u BUN/ Cr, electrolytes, daily weight, Is and Os. Code(s): I50.9 - HEART FAILURE, UNSPECIFIED cc time 40 min
[2017-04-30] MEDS ORDERED: FUROSEMIDE 40 MG/4 ML INJECTABLE VIAL IVPUSH ONE (12:30)
--- NOTE | 2017-04-30 14:25 | PN ---
Progress Note (short form) - Note Progress Note: sedated and intubated moving her arms and legs ross, IJ remain no diarrhea sedation d/margo and restarted, dobutamine d/margo and restarted Vital Signs Period Temp Pulse Resp BP Sys/Gandara Pulse Ox Last 24 Hr 98.3 F-98.6 F 108-134 20-35 88-120/50-82 92-95 cor-rrr lungs decreased bs a bases abd soft,nt ext +edema CBC, BMP 04/30/17 05:55 04/30/17 05:55 Microbiology 04/25/17 11:15 Blood - Peripheral Venous Blood Culture - Final NO GROWTH AFTER 5 DAYS INCUBATION 04/25/17 09:35 Blood - Peripheral Venous Blood Culture - Final NO GROWTH AFTER 5 DAYS INCUBATION 04/20/17 09:15 Blood - Peripheral Venous Blood Culture - Preliminary Listeria Monocytogenes 04/25/17 11:00 Sputum - Endotrachea Suction/Ventilator Gram Stain - Final 04/25/17 11:00 Sputum - Endotrachea Suction/Ventilator Sputum Culture - Final Yeast Like Organism 04/22/17 11:34 Blood - Peripheral Venous Blood Culture - Final NO GROWTH AFTER 5 DAYS INCUBATION 04/22/17 11:29 Blood - Peripheral Venous Blood Culture - Final NO GROWTH AFTER 5 DAYS INCUBATION 04/22/17 16:45 Cerebral Spinal Fluid - Lumbar Puncture AFB Smear Concentration - Final 04/25/17 11:18 Urine - Urine Ross Urine Culture - Final NO GROWTH OBTAINED 04/22/17 16:45 Cerebral Spinal Fluid - Lumbar Puncture Gram Stain - Final 04/22/17 16:45 Cerebral Spinal Fluid - Lumbar Puncture CSF Culture - Final NO GROWTH AFTER 48 HOURS INCUBATION 04/20/17 08:30 Blood - Peripheral Venous Blood Culture - Final Listeria Monocytogenes 04/23/17 10:05 Urine For Antigen Detection Legionella Antigen - Final 04/23/17 10:05 Urine For Antigen Detection Streptococcus pneumoniae Antigen (M - Final 04/22/17 16:45 Cerebral Spinal Fluid - Lumbar Puncture Streptococcus pneumoniae Antigen (M - Final 04/18/17 08:00 Blood - Peripheral Venous Blood Culture - Final NO GROWTH AFTER 5 DAYS INCUBATION 04/18/17 08:00 Blood - Peripheral Venous Blood Culture - Final NO GROWTH AFTER 5 DAYS INCUBATION 04/20/17 11:05 Urine - Urine - Catheterized Urine Culture - Final NO GROWTH OBTAINED 04/20/17 07:55 Nasopharyngeal Swab Influenza Types A,B Antigen (SÁNCHEZ) - Final 04/20/17 07:55 Nasopharyngeal Swab - Final 04/15/17 04:30 Nasopharyngeal Swab Influenza Types A,B Antigen (SÁNCHEZ) - Final 04/15/17 04:30 Nasopharyngeal Swab - Final gent trough 1.7 a/p chart reviewed listeria sepsis- bacteremia with meningitis to continue amp/gentamicin day #8 gent trough reordered for am afib pulmonary HTN CHF respiratory failure overall prognosis is poor
--- NOTE | 2017-04-30 19:35 | PN ---
Progress Note (short form) - Note Progress Note: PULM/CCM Pt seen & examined in the ICU. Pt is obtunded but resting comfortable on the Vent, NAD. Active Medications Amiodarone HCl (Cordarone -) 400 mg PO BID [facility] Last Admin: 04/30/17 09:04 Dose: 400 mg Enoxaparin Sodium (Lovenox -) 85 mg SQ DAILY [facility] Last Admin: 04/30/17 09:13 Dose: 85 mg Ampicillin Sodium 2 gm/ Sodium (Chloride) 100 mls @ 200 mls/hr IVPB Q4H-IV [facility] Last Admin: 04/30/17 17:14 Dose: 200 mls/hr Gentamicin Sulfate 30 mg/ (Sodium Chloride) 100.75 mls @ 100.75 mls/hr IVPB Q8H -IV [facility] Last Admin: 04/30/17 17:14 Dose: 100.75 mls/hr Famotidine/Sodium Chloride (Pepcid 20 Mg Premixed Ivpb -) 20 mg in 50 mls @ 100 mls/hr IVPB BID [facility] Last Admin: 04/30/17 09:03 Dose: 100 mls/hr Dobutamine HCl 250,000 mcg/ (Sodium Chloride) 250 mls @ 19.7 mls/hr IV TITR [facility] ; 5 MCG/KG/MIN PRN Reason: Protocol Last Admin: 04/30/17 08:57 Dose: 5 mcg/kg/min, 19.7 mls/hr Fentanyl 500 mcg/ Dextrose 100 mls @ 10 mls/hr IVPB TITR [facility]; 50 MCG/HR PRN Reason: Protocol Last Admin: 04/30/17 08:58 Dose: 50 mcg/hr, 10 mls/hr Levothyroxine Sodium (Synthroid -) 75 mcg PO DAILY@0700 [facility] Last Admin: 04/30/17 05:59 Dose: 75 mcg Melatonin (Melatonin) 5 mg PO HS PRN PRN Reason: INSOMNIA Last Admin: 04/19/17 23:05 Dose: 5 mg Saliva Substitute (Mouthkote Solution -) 1 applic MM DAILY [facility] Last Admin: 04/30/17 09:07 Dose: 1 applic V/S Temp 98.6 F 04/30/17 14:00 Pulse 108 H 04/30/17 18:00 Resp 23 04/30/17 18:59 BP 108/50 04/30/17 18:00 Pulse Ox 92 L 02/11/18 11:20 I's & O's 04/29/17 04/30/17 04/30/17 23:59 11:59 23:59 Intake Total 1606.0 1120 1449.4 Output Total 5754 835 1261 Balance -294.0 920 -450.6 Weight 65.68 kg Intake: IV 176.0 279.4 DIPRIVAN - 1,000,000 mcg 32.4 In 100 ml @ 5 MCG/KG/MIN 1.546 mls/hr IVPB TITR [facility] Rx#:[id number] Dobutrex - 250,000 Mcg In 49.6 Normal Saline - 230 ml @ 5 MCG/KG/MIN 17.98 mls/ hr IV TITR [facility] Rx#: [id number] Dobutrex - 250,000 Mcg In 114.4 Normal Saline - 230 ml @ 5 MCG/KG/MIN 19.7 mls/hr IV TITR [facility] Rx#: [id number] Levophed - 16,000 Mcg In 94 1/2 Normal Saline 984 ml @ 5 MCG/MIN 18.75 mls/hr IV TITR [facility] Rx#: [id number] Sublimaze Injection - 500 165 Mcg In D5w - 90 ml @ 50 MCG/HR 10 mls/hr IVPB TITR [facility] Rx#:[id number] IVPB 700 400 450 Tube Feeding 600 600 600 Tube Irrigant 130 120 120 Output: Urine 0187 138 [id number] Judge [id number] Other: Voiding Method Indwelling Catheter Indwelling Catheter Indwelling Catheter Bowel Movement No # Bowel Movements 1 Weight Measurement Method Built in Bedscale cor- irreg irreg, tachy lungs decreased bs a bases abd soft,nt ext +edema CBC, BMP 04/30/17 05:55 04/30/17 05:55 ASSESSMENT AND PLAN: Acute Hypoxic Respiratory Failure Listeria Meningitis/Bacteremia Acute Colitis Septic Shock Atrial Fibrillation with RVR Acute Kidney Injury improving Lactic Acidosis resolved Elevated LFTs resolved Acute on Chronic Diastolic Heart Failure Coagulopathy improved Hypothyroidism - Cont Vent Support - O2 to keep SpO2 >90% - continue antibiotics per ID - titrate pressors/inotrope to maintain MAP >65, 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
[2017-04-30] MEDS ORDERED: FUROSEMIDE INJECTION 100 MG in DEXTROSE 5%-WATER - 90 ML IVPB SCH (20:30)
[2017-04-30] MEDS ORDERED: FUROSEMIDE INJECTION 100 MG in SODIUM CHLORIDE 90 ML IVPB SCH (20:30)
[2017-04-30] MEDS ORDERED: FUROSEMIDE 40 MG/4 ML INJECTABLE VIAL ONE (21:07)
[2017-05-01] MEDS: GENTAMICIN IVPB SCH ×3 (02:30→18:56)
[2017-05-01] MEDS: SODIUM CHLORIDE IVPB SCH ×3 (02:30→18:56)
[2017-05-01] MEDS: AMPICILLIN - 2 GM in SODIUM CHLORIDE 100 ML IVPB SCH ×6 (03:39→21:27)
[2017-05-01] MEDS ORDERED: DOBUTAMINE 250 MG/D5W - 250,000 MCG/250 ML INFUS.BAG ONE (06:11)
[2017-05-01 06:18] LABS: HEMATOCRIT 34.4 % (32.4-45.2); HEMOGLOBIN 11.1 GM/dL (10.7-15.3); MCH 27.5 pg (25.7-33.7); MCHC 32.2 g/dl (32.0-36.0); MEAN CELL VOLUME 85.5 fl (80-96); MEAN PLT VOLUME 8.4 fl (7.5-11.1); PLATELET COUNT 145 K/MM3 (134-434); RBC 4.02 M/mm3 (3.60-5.2); RDW 18.8 % (11.6-15.6); WHITE BLOOD COUNT 11.1 K/mm3 (4.0-10.0)
[2017-05-01 06:20] LABS: ANION GAP 6 (8-16); BLOOD UREA NITROGEN 17 mg/dL (7-18); CHLORIDE 99 mmol/L (98-107); CO2 31 mmol/L (21-32); CREATININE 0.5 mg/dL (0.55-1.02); GLUCOSE,RANDOM 79 mg/dL (74-106); POTASSIUM 3.9 mmol/L (3.5-5.1); SGOT/AST 50 U/L (15-37); SGPT/ALT 20 U/L (12-78); SODIUM 136 mmol/L (136-145)
[2017-05-01] MEDS: LEVOTHYROXINE NA 75 MCG TABLET (FP) PO SCH (06:20)
[2017-05-01 06:22] LABS: ALK PHOS 229 U/L (45-117); BILIRUBIN,TOTAL 0.8 mg/dL (0.2-1.0); TOT PROT 3.5 g/dl (6.4-8.2)
[2017-05-01 06:30] LABS: ALBUMIN 0.9 g/dl (3.4-5.0)
[2017-05-01 06:32] LABS: CALCIUM 6.2 mg/dL (8.5-10.1)
--- NOTE | 2017-05-01 07:34 | PN ---
Progress Note, Physician Chief Complaint: ID Clinical status remains dire BP marginal tachycardic on 50% FIO2 - Current Medication List Current Medications: Active Medications Amiodarone HCl (Cordarone -) 400 mg PO BID [facility] Last Admin: 04/30/17 21:23 Dose: 400 mg Enoxaparin Sodium (Lovenox -) 85 mg SQ DAILY [facility] Last Admin: 04/30/17 09:13 Dose: 85 mg Ampicillin Sodium 2 gm/ Sodium (Chloride) 100 mls @ 200 mls/hr IVPB Q4H-IV [facility] Last Admin: 05/01/17 06:20 Dose: 200 mls/hr Gentamicin Sulfate 30 mg/ (Sodium Chloride) 100.75 mls @ 100.75 mls/hr IVPB Q8H -IV [facility] Last Admin: 05/01/17 02:30 Dose: 100.75 mls/hr Famotidine/Sodium Chloride (Pepcid 20 Mg Premixed Ivpb -) 20 mg in 50 mls @ 100 mls/hr IVPB BID [facility] Last Admin: 04/30/17 21:23 Dose: 100 mls/hr Dobutamine HCl 250,000 mcg/ (Sodium Chloride) 250 mls @ 19.7 mls/hr IV TITR [facility] ; 5 MCG/KG/MIN PRN Reason: Protocol Last Admin: 04/30/17 08:57 Dose: 5 mcg/kg/min, 19.7 mls/hr Fentanyl 500 mcg/ Dextrose 100 mls @ 10 mls/hr IVPB TITR [facility]; 50 MCG/HR PRN Reason: Protocol Last Titration: 04/30/17 19:00 Dose: 100 mcg/hr, 20 mls/hr Furosemide 100 mg/ Sodium (Chloride) 100 mls @ 5 mls/hr IVPB TITR [facility]; 5 MG/HR PRN Reason: Protocol Last Admin: 04/30/17 21:22 Dose: 5 mg/hr, 5 mls/hr Levothyroxine Sodium (Synthroid -) 75 mcg PO DAILY@0700 [facility] Last Admin: 05/01/17 06:20 Dose: 75 mcg Melatonin (Melatonin) 5 mg PO HS PRN PRN Reason: INSOMNIA Last Admin: 04/19/17 23:05 Dose: 5 mg Saliva Substitute (Mouthkote Solution -) 1 applic MM DAILY [facility] Last Admin: 04/30/17 09:07 Dose: 1 applic - Objective Vital Signs: Vital Signs Temperature 98.4 F 05/01/17 06:00 Pulse Rate 112 H 05/01/17 06:00 Respiratory Rate 17 05/01/17 06:00 Blood Pressure 91/63 05/01/17 06:00 O2 Sat by Pulse Oximetry (%) 90 L 04/30/17 23:41 Constitutional: Yes: Other (Intubated) Labs: CBC, BMP 05/01/17 05:10 05/01/17 05:10 INR, PTT INR 1.07 (0.82-1.09) 04/26/17 06:10 Fibrinogen 252.0 mg/dL (238-498) 04/23/17 05:15 Problem List - Problems (1) Sepsis Code(s): A41.9 - SEPSIS, UNSPECIFIED ORGANISM (2) Atrial fibrillation with RVR Code(s): I48.91 - UNSPECIFIED ATRIAL FIBRILLATION (3) Bacteremia due to Gram-positive bacteria Code(s): R78.81 - BACTEREMIA (4) Listeria brain infection Code(s): A32.12 - LISTERIAL MENINGOENCEPHALITIS (5) Respiratory failure Code(s): J96.90 - RESPIRATORY FAILURE, UNSP, UNSP W HYPOXIA OR HYPERCAPNIA Assessment/Plan Microbiology 04/25/17 11:18 Urine - Urine Judge Urine Culture - Final NO GROWTH OBTAINED 04/25/17 11:15 Blood - Peripheral Venous Blood Culture - Final NO GROWTH AFTER 5 DAYS INCUBATION Laboratory Tests 04/29/17 05/01/17 05/01/17 09:15 05:10 05:10 WBC 11.1 H Hgb 11.1 Hct 34.4 Plt Count 145 D AST 50 H Gentamicin Trough 1.7 Assessment 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
[2017-05-01] MEDS ORDERED: PT OWN MED DRAWER 7, Y5N ONE ×3 (09:01→15:12)
[2017-05-01] MEDS: FAMOTIDINE 20 MG/50 ML IVPB 20 MG/50 ML MG IVPB SCH ×2 (09:06→21:27)
[2017-05-01] MEDS: ENOXAPARIN NA (PORCINE) 100 MG/1 ML DISP.SYRIN SQ SCH (09:45)
[2017-05-01] MEDS: AMIODARONE HCL 200 MG TABLET (FP) PO SCH ×2 (09:46→21:27)
[2017-05-01] MEDS ORDERED: fentaNYL CITRATE 250 MCG/5 ML VIAL ONE ×3 (10:19→19:45)
[2017-05-01 10:41] LABS: MAGNESIUM 1.9 mg/dL (1.8-2.4); PHOSPHOROUS 3.1 mg/dL (2.5-4.9)
--- NOTE | 2017-05-01 12:06 | PN ---
Progress Note, Physician History of Present Illness: "Patient is an 86 year old female with a significant past medical history of CAD w/ stents, afib on xarelto, HFpEF (EF 67.8%, 2016) and HLD who presents to the ED for tachycardia. Patient was seen in cardiology clinic today and was found on EKG to be in afib with RVR with a rate of 160. She was subsequently sent to ER for management. Patient currently has no complaints or pain while in the ED. Denies ever having CP/SOB/palpitations. Denies F/C/N/V/D. Reports compliance with all of her medications. Patient presented to the office Off amiodarone and with reduced dose of bb. 2 weeks h/o of decompensated chf rx with increased dose of lasix. yesterday vissiting nurse noted pulse 160's, ems called, confirmed, patient refused admission to hospital yesterday. Today in my office she presented asymptomatic with +3 lower extremity edema and AF with RVR 167 bpm. PMH ASHD s/p PTCA SANNA mLAD PTCA D2 2007 Atrial fibrillation HHD HTN Positive MIBI in the past refused repeated c. cath - Current Medication List Current Medications: Active Medications Amiodarone HCl (Cordarone -) 400 mg PO BID [facility] Last Admin: 05/01/17 09:46 Dose: 400 mg Enoxaparin Sodium (Lovenox -) 15 mg SQ ONCE ONE Stop: 05/01/17 10:12 Enoxaparin Sodium (Lovenox -) 65 mg SQ BID [facility] Furosemide (Lasix Injection -) 40 mg IVPUSH BID [facility] Furosemide (Lasix Injection -) 40 mg IVPUSH ONCE ONE Stop: 05/01/17 10:14 Ampicillin Sodium 2 gm/ Sodium (Chloride) 100 mls @ 200 mls/hr IVPB Q4H-IV [facility] Last Admin: 05/01/17 09:42 Dose: 200 mls/hr Gentamicin Sulfate 30 mg/ (Sodium Chloride) 100.75 mls @ 100.75 mls/hr IVPB Q8H -IV [facility] Last Admin: 05/01/17 11:32 Dose: 100.75 mls/hr Famotidine/Sodium Chloride (Pepcid 20 Mg Premixed Ivpb -) 20 mg in 50 mls @ 100 mls/hr IVPB BID [facility] Last Admin: 05/01/17 09:06 Dose: 100 mls/hr Dobutamine HCl 250,000 mcg/ (Sodium Chloride) 250 mls @ 19.7 mls/hr IV TITR [facility] ; 5 MCG/KG/MIN PRN Reason: Protocol Last Titration: 05/01/17 11:22 Dose: 0 mcg/kg/min, 0 mls/hr Fentanyl 500 mcg/ Dextrose 100 mls @ 10 mls/hr IVPB TITR [facility]; 50 MCG/HR PRN Reason: Protocol Last Titration: 04/30/17 19:00 Dose: 100 mcg/hr, 20 mls/hr Levothyroxine Sodium (Synthroid -) 75 mcg PO DAILY@0700 [facility] Last Admin: 05/01/17 06:20 Dose: 75 mcg Melatonin (Melatonin) 5 mg PO HS PRN PRN Reason: INSOMNIA Last Admin: 04/19/17 23:05 Dose: 5 mg Saliva Substitute (Mouthkote Solution -) 1 applic MM DAILY [facility] Last Admin: 04/30/17 09:07 Dose: 1 applic - Objective Vital Signs: Vital Signs Temperature 98.3 F 05/01/17 10:00 Pulse Rate 122 H 05/01/17 11:22 Respiratory Rate 24 05/01/17 11:43 Blood Pressure 97/79 05/01/17 11:22 O2 Sat by Pulse Oximetry (%) 91 L 05/01/17 11:43 Eyes: Yes: WNL, Conjunctiva Clear, EOM Intact HENT: Yes: WNL, Atraumatic, Normocephalic Neck: Yes: WNL, Supple, Trachea Midline Cardiovascular: Yes: Tachycardia, Pulse Irregular, S1, S2 Respiratory: Yes: Intubated, Mechanically Ventilated Gastrointestinal: Yes: WNL, Normal Bowel Sounds Genitourinary: Yes: WNL Musculoskeletal: Yes: WNL Extremities: Yes: WNL Edema: Yes Edema: LLE: 2+, RLE: 2+ Integumentary: Yes: WNL ...Motor Strength: WNL Psychiatric: Yes: WNL Labs: CBC, BMP 05/01/17 05:10 05/01/17 05:10 INR, PTT INR 1.07 (0.82-1.09) 04/26/17 06:10 Fibrinogen 252.0 mg/dL (238-498) 04/23/17 05:15 Problem List - Problems (1) Acute on chronic systolic and diastolic heart failure, NYHA class 2 Code(s): I50.43 - ACUTE ON CHRONIC COMBINED SYSTOLIC AND DIASTOLIC HRT FAIL (2) CAD (coronary artery disease) Code(s): I25.10 - ATHSCL HEART DISEASE OF FALSE PASS CORONARY ARTERY W/O ANG PCTRS (3) Dizziness Code(s): R42 - DIZZINESS AND GIDDINESS (4) Afib Code(s): I48.91 - UNSPECIFIED ATRIAL FIBRILLATION (5) CHF (congestive heart failure) Code(s): I50.9 - HEART FAILURE, UNSPECIFIED Assessment/Plan - Problems (1) Atrial fibrillation with RVR Assessment/Plan: . repleted Mg and PO4. Reduce amiodarone to 400 mg daily for a week, with plan to eventually be on maintenance of 100 mg daily. Dobutamine dose lowered due to tachycardia. Code(s): I48.91 - UNSPECIFIED ATRIAL FIBRILLATION (2) Acute on chronic systolic and diastolic heart failure, NYHA class 2 Assessment/Plan: On amiodarone and metoprolol. Problematic giving other agents (e.g. ACEI, RAAS, hydralazine + isordil) at the present time due to renal insufficiency and relative hypotension. ECHO: severely reduced LVEF. F/u BUn/Cr, electrolytes, Is and Os, daily weight. Code(s): I50.43 - ACUTE ON CHRONIC COMBINED SYSTOLIC AND DIASTOLIC HRT FAIL (3) CAD (coronary artery disease) Code(s): I25.10 - ATHSCL HEART DISEASE OF FALSE PASS CORONARY ARTERY W/O ANG PCTRS (4) Hypothyroid Assessment/Plan: elevated TSH; free T4 is also mildly elevated. Following thyroid function is especially important when on amiodarone (dose to be reduced to 400 mg daily for a week, with plan to maintain on 100 mg daily). Code(s): E03.9 - HYPOTHYROIDISM, UNSPECIFIED (5) Renal insufficiency Assessment/Plan: f/u carefully (on furosemide for acute CHF); avoid excessive dehydration. Code(s): N28.9 - DISORDER OF KIDNEY AND URETER, UNSPECIFIED (6) Acute respiratory failure Assessment/Plan: on antibiotics for septic shock steroids, O2 per circle edger.. Code(s): J96.00 - ACUTE RESPIRATORY FAILURE, UNSP W HYPOXIA OR HYPERCAPNIA (7) Septic shock Assessment/Plan: remains febrile; Listeria meningitis. Antibiotics per ID. Fluids; monitor Is and Os, daily weight, BUN?cr, electrolytes. off pressors LVEF is severely reduced, (and pt known to have significant MR)-- > restart dobuamine.for attempt to improve cardiac output (dose lowered due to tachycardia). Code(s): A41.9 - SEPSIS, UNSPECIFIED ORGANISM; R65.21 - SEVERE SEPSIS WITH SEPTIC SHOCK (8) CHF (congestive heart failure) Assessment/Plan: Severe systolic LV dysfunction, with severe pulmonary HTN. on metoprolol and amiodarone. Furosemide held (sepsis; hypotension). of dobutamine F/u BUN/ Cr, electrolytes, daily weight, Is and Os. Code(s): I50.9 - HEART FAILURE, UNSPECIFIED cc time 40 min
--- NOTE | 2017-05-01 12:16 | PN ---
Teaching Attending Note Name of Resident: Fátima Washington ATTENDING PHYSICIAN STATEMENT I saw and evaluated the patient. I reviewed the resident's note and discussed the case with the resident. I agree with the resident's findings and plan as documented. SUBJECTIVE: Pt seen and examined in the ICU. Remains intubated, sedated. On dobutamine and lasix gtts. OBJECTIVE: Last Vital Signs Temp Pulse Resp BP Pulse Ox 98.3 F 122 H 24 97/79 91 L 05/01/17 10:00 05/01/17 11:22 05/01/17 11:43 05/01/17 11:22 05/01/17 11:43 Intake & Output 04/28/17 04/29/17 04/30/17 05/01/17 23:59 23:59 23:59 23:59 Intake Total 3383 2886.0 2569.4 860 Output Total 1200 2550 2400 1900 Balance 2183 336.0 169.4 -1040 Weight 63.3 kg 64.3 kg 65.68 kg 64.773 kg Gen: intubated, sedated Heart: tachycardic, irregular Lung: bilateral rhonchi Abd: soft, nontender Ext: + edema CBC, BMP 05/01/17 05:10 05/01/17 05:10 INR, PTT INR 1.07 (0.82-1.09) 04/26/17 06:10 Fibrinogen 252.0 mg/dL (238-498) 04/23/17 05:15 Active Medications Amiodarone HCl (Cordarone -) 400 mg PO BID [facility] Last Admin: 05/01/17 09:46 Dose: 400 mg Enoxaparin Sodium (Lovenox -) 15 mg SQ ONCE ONE Stop: 05/01/17 10:12 Enoxaparin Sodium (Lovenox -) 65 mg SQ BID [facility] Furosemide (Lasix Injection -) 40 mg IVPUSH BID [facility] Furosemide (Lasix Injection -) 40 mg IVPUSH ONCE ONE Stop: 05/01/17 10:14 Ampicillin Sodium 2 gm/ Sodium (Chloride) 100 mls @ 200 mls/hr IVPB Q4H-IV [facility] Last Admin: 05/01/17 09:42 Dose: 200 mls/hr Gentamicin Sulfate 30 mg/ (Sodium Chloride) 100.75 mls @ 100.75 mls/hr IVPB Q8H -IV [facility] Last Admin: 05/01/17 11:32 Dose: 100.75 mls/hr Famotidine/Sodium Chloride (Pepcid 20 Mg Premixed Ivpb -) 20 mg in 50 mls @ 100 mls/hr IVPB BID [facility] Last Admin: 05/01/17 09:06 Dose: 100 mls/hr Dobutamine HCl 250,000 mcg/ (Sodium Chloride) 250 mls @ 19.7 mls/hr IV TITR [facility] ; 5 MCG/KG/MIN PRN Reason: Protocol Last Titration: 05/01/17 11:22 Dose: 0 mcg/kg/min, 0 mls/hr Fentanyl 500 mcg/ Dextrose 100 mls @ 10 mls/hr IVPB TITR [facility]; 50 MCG/HR PRN Reason: Protocol Last Titration: 04/30/17 19:00 Dose: 100 mcg/hr, 20 mls/hr Levothyroxine Sodium (Synthroid -) 75 mcg PO DAILY@0700 [facility] Last Admin: 05/01/17 06:20 Dose: 75 mcg Melatonin (Melatonin) 5 mg PO HS PRN PRN Reason: INSOMNIA Last Admin: 04/19/17 23:05 Dose: 5 mg Saliva Substitute (Mouthkote Solution -) 1 applic MM DAILY [facility] Last Admin: 04/30/17 09:07 Dose: 1 applic ASSESSMENT AND PLAN: Acute Hypoxic Respiratory Failure Listeria Meningitis/Bacteremia Acute Colitis Septic Shock Atrial Fibrillation with RVR Acute Kidney Injury improving Lactic Acidosis resolved Elevated LFTs resolved Acute on Chronic Diastolic/Systolic Heart Failure Coagulopathy improved Hypothyroidism - continue antibiotics per ID - off pressors, maintain MAP >65 - d/c dobutamine gtt - change lasix to BID dosing - monitor urine output, creatinine - rate control - continue anticoagulation - replete lytes - O2 to keep SpO2 >90% - continue ICU monitoring - guarded prognosis critical care time spent in reviewing chart, evaluating patient and formulating plan 35 min
[2017-05-01] MEDS: FENTANYL INJECTION 500 MCG in DEXTROSE 5%-WATER - 90 ML IVPB SCH (12:29)
[2017-05-01] MEDS: LYTES/YERBA SANTA 240 ML BOTTLE MM SCH (12:33)
--- NOTE | 2017-05-01 14:35 | PN ---
Progress Note, Physician History of Present Illness: No significant events overnight. Patient is nonverbal and unable to provide subjective info. She is slightly more alert than yesterday's report. - Current Medication List Current Medications: Active Medications Amiodarone HCl (Cordarone -) 400 mg PO BID [facility] Last Admin: 05/01/17 09:46 Dose: 400 mg Enoxaparin Sodium (Lovenox -) 65 mg SQ BID [facility] Furosemide (Lasix Injection -) 40 mg IVPUSH BIDLASIX [facility] Ampicillin Sodium 2 gm/ Sodium (Chloride) 100 mls @ 200 mls/hr IVPB Q4H-IV [facility] Last Admin: 05/01/17 09:42 Dose: 200 mls/hr Gentamicin Sulfate 30 mg/ (Sodium Chloride) 100.75 mls @ 100.75 mls/hr IVPB Q8H -IV [facility] Last Admin: 05/01/17 11:32 Dose: 100.75 mls/hr Famotidine/Sodium Chloride (Pepcid 20 Mg Premixed Ivpb -) 20 mg in 50 mls @ 100 mls/hr IVPB BID [facility] Last Admin: 05/01/17 09:06 Dose: 100 mls/hr Dobutamine HCl 250,000 mcg/ (Sodium Chloride) 250 mls @ 19.7 mls/hr IV TITR [facility] ; 5 MCG/KG/MIN PRN Reason: Protocol Last Titration: 05/01/17 11:22 Dose: 0 mcg/kg/min, 0 mls/hr Fentanyl 500 mcg/ Dextrose 100 mls @ 10 mls/hr IVPB TITR [facility]; 50 MCG/HR PRN Reason: Protocol Last Admin: 05/01/17 12:29 Dose: 50 mcg/hr, 10 mls/hr Levothyroxine Sodium (Synthroid -) 75 mcg PO DAILY@0700 [facility] Last Admin: 05/01/17 06:20 Dose: 75 mcg Melatonin (Melatonin) 5 mg PO HS PRN PRN Reason: INSOMNIA Last Admin: 04/19/17 23:05 Dose: 5 mg Saliva Substitute (Mouthkote Solution -) 1 applic MM DAILY [facility] Last Admin: 05/01/17 12:33 Dose: 1 applic - Objective Vital Signs: Vital Signs Temperature 98.3 F 05/01/17 10:00 Pulse Rate 121 H 05/01/17 12:00 Respiratory Rate 21 05/01/17 14:04 Blood Pressure 85/65 05/01/17 12:00 O2 Sat by Pulse Oximetry (%) 91 L 05/01/17 11:43 Constitutional: Yes: No Distress, Calm, Other (patient sedated and intubated but occasionally opening eyes, squeezes hand, listens to examiner and makes small body movements) HENT: Yes: Atraumatic, Normocephalic Neck: Yes: Supple, Trachea Midline Cardiovascular: Yes: Tachycardia, Pulse Irregular, Other (anasarca, 2+ to 3+) Respiratory: Yes: Mechanically Ventilated, Tachypnea, Other (diffuse crackles bilaterally) Gastrointestinal: Yes: Normal Bowel Sounds, Soft, Abdomen, Obese Extremities: Yes: Other (edematous but otherwise unremarkable exam) Neurological: Yes: Other (patient sedated and intubated) Labs: CBC, BMP 05/01/17 05:10 05/01/17 05:10 INR, PTT INR 1.07 (0.82-1.09) 04/26/17 06:10 Fibrinogen 252.0 mg/dL (238-498) 04/23/17 05:15 - ....Imaging Chest X-ray: Image Reviewed (bilateral parahilar consolidations and right pleural effusion) Assessment/Plan ASSESSMENT/PLAN: 86 YOF with h/o A-fib, CAD s/p stents, CHF, HLD, hypothyroidism, presented to ED initially in A-fib with RVR, found to be septic, blood cx grew Listeria, 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 NEURO Patient is intubated. -Sedated with propofol. -Will give sedation vacations. -Will continue to monitor. CV #Hypotension Patient noted to be hypotensive over the weekend and started on pressors with increasing pressor support needed. -Continue dobutamine -Continue careful diuresis with bolus dosing only when SBP>90, MAP>65 -Will continue to monitor. #Afib with RVR Patient initially presented with HR 160 now rate 110-125 on amiodarone. Patient on xarelto at home for anti-coagulation. Cardiology is following. -Continue amiodarone per cardiology recs. -Continue lovenox, now 1 mg/kg BID -Will continue to monitor closely. -Appreciate cardiology recs. #CHF (EF 20%, 2018) Patient being diuresed carefully d/t soft pressures -Conservative fluid hydration at the moment. -Will continue to monitor closely. RESP #Respiratory distress Patient noted to have worsening respiratory distress and was intubated. -Continue vent settings and ween down as tolerated. -Chest plain film appears to be worsening. -Close monitoring of the patient's O2 saturation. -Will continue to monitor. GI #Elevated Liver Enzymes -Will continue to monitor and trend. Renal No issues currently -Will continue to monitor bun/creatinine. ID #Sepsis Blood cultures/CSF cultures concerning for Listeria meningitis. -Continue Ampicillin and Gentamycin for aggressive antibiotic coverage. -Continue to manage fever with Tylenol. -Serial CXR. -Follow up on blood, CSF and urine cultures. -Will continue to monitor. -ID is following and appreciate recs. MSK No issues currently FEN/GI -Replete electrolytes PRN, will monitor PPX -Continue Lovenox, change dose to 1 mg/kg BID. DISPO: Continue ICU level of care.
[2017-05-01] MEDS: FUROSEMIDE 40 MG/4 ML INJECTABLE VIAL IVPUSH ONE ×2 (15:00→15:10)
[2017-05-01] MEDS: FUROSEMIDE 40 MG/4 ML INJECTABLE VIAL IVPUSH SCH (15:01)
--- NOTE | 2017-05-01 15:01 | PN ---
Teaching Attending Note Name of Resident: Maya Berger ATTENDING PHYSICIAN STATEMENT I saw and evaluated the patient. I reviewed the resident's note and discussed the case with the resident. I agree with the resident's findings and plan as documented. SUBJECTIVE:intubated/sedated OBJECTIVE: Last Vital Signs Temp Pulse Resp BP Pulse Ox 98.3 F 121 H 21 85/65 91 L 05/01/17 10:00 05/01/17 12:00 05/01/17 14:04 05/01/17 12:00 05/01/17 11:43 Intake & Output 04/28/17 04/29/17 04/30/17 05/01/17 23:59 23:59 23:59 23:59 Intake Total 3383 2886.0 2569.4 860 Output Total 1200 2550 2400 1900 Balance 2183 336.0 169.4 -1040 Weight 139 lb 8.842 oz 141 lb 12.116 oz 144 lb 12.8 oz 142 lb 12.8 oz General withdraws to pain CV S1 s2 irregular tachycardic Lungs coarse diffusely Abdomen soft diffusley tender Extremities 4+ pitting edema all extremities, warm neuro withdraws to pain in all extremities ASSESSMENT AND PLAN: 86yo F with PMH AFib on xarelto, CAD s/p stents, hypothyroid, Systolic CHF, dyslipidemia sent to the ER by 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 off levo. on dobutamine. on Ampicillin/Gent day 9. ID on board 2. Acute hypoxic respiratory failure from septic shock and likely systolic HF exacerbation from volume resuscitation-less tachypnic today with addition of fentanyl ggt. unable to titrate down vent. vent management from ICU team. 3. Afib with RVR-continues to have RVR bursts.cont po at this time. cardio on board. Xarelto on hold due to coagulopathy 4. Acute Systolic Heart failure exacerbation-started on dobuatmine and lasix ggt. 2 lb weight loss. remains anasarcic. 5. Coagulopathy, elevated INR, suspect from hepatic congestion/amiodarone- resolved 6. Acute transaminitis-likely congestive hepatopathy. now resolved 7. Hypothyoridism- on LT4 8. SELMA, prerenal likely from CKD on her CKD (from poor EF)- resolved 9. Hypomagnesemia- resolved 10. Pseduohypocalcemia- Corrected CA 8.5 11. Severe hypophosphatemia- resolved 12. DVT ppx- lovenox 13. Poor overall prognosis. full code at this time. will need to have goals of care conversation as pt does not continue to improve at this time. The care of this patient involved high complexity decision making to prevent further life threatening deterioration of the patient's condition and/or to evaluate & treat vital organ system(s) failure or risk of failure. 40 minutes
[2017-05-01 16:49] LABS: ARTERIAL BLOOD GAS pH 7.43 (7.35-7.45)
[2017-05-01 16:50] LABS: ALLENS TEST POSITIVE; ARTERIAL BLD GAS O2 SATURATION 84.6 % (90-98.9); ARTERIAL BLOOD GAS BASE EXCESS 4.1 meq/l (-2-2); ARTERIAL BLOOD GAS PCO2 42.8 mmHg (35-45)
[2017-05-01] MEDS: ENOXAPARIN NA (PORCINE) 30 MG/0.3 ML DISP.SYRIN SQ ONE ×2 (17:40→18:56)
--- NOTE | 2017-05-01 17:52 | PN ---
Physical Exam: SUBJECTIVE: Patient seen and examined. Pt remains intubated. Tube feeding held at 11pm last night 2/2 significant gastric residual. OBJECTIVE: Vital Signs Period Temp Pulse Resp BP Sys/Gandara Pulse Ox Last 24 Hr 98.1 F-98.6 F 108-126 15-30 81-118/50-87 90-92 GENERAL: Pt is intubated, looks comfortable. Withdraws to pain. LUNGS: tate rhonchi. HEART: Tachycardic, irregular, +S1/S2. ABDOMEN: Soft, nontender, nondistended. EXTREMITIES: 2+ pulses, warm, well-perfused. 4+ pitting edema x 4 extremities. SKIN: Warm, dry, normal turgor, no rashes or lesions noted Laboratory Results - last 24 hr 05/01/17 05/01/17 05/01/17 05:10 05:10 16:40 WBC 11.1 H RBC 4.02 Hgb 11.1 Hct 34.4 MCV 85.5 MCH 27.5 MCHC 32.2 RDW 18.8 H Plt Count 145 D MPV 8.4 D Anticoagulation Therapy No Result Required. Puncture Site Right radial ABG pH 7.43 ABG pCO2 at Pt Temp 42.8 D ABG pO2 at Pt Temp 49.0 L* D ABG HCO3 28.3 H ABG O2 Sat (Measured) 84.6 L ABG O2 Content 13.7 L ABG Base Excess 4.1 H José Miguel Test Positive O2 Delivery Device No Result Required. Oxygen Flow Rate No Result Required. Vent Mode No Result Required. Vent Rate No Result Required. Mechanical Rate No Result Required. Pressure Support Vent No Result Required. Sodium 136 Potassium 3.9 Chloride 99 Carbon Dioxide 31 Anion Gap 6 L BUN 17 Creatinine 0.5 L Creat Clearance w eGFR > 60 Random Glucose 79 Calcium 6.2 L* Phosphorus 3.1 Magnesium 1.9 Total Bilirubin 0.8 AST 50 H ALT 20 Alkaline Phosphatase 229 H Total Protein 3.5 L Albumin 0.9 L Active Medications Generic Name Dose Route Start Last Admin Trade Name Freq PRN Reason Stop Dose Admin Amiodarone HCl 400 mg 04/20/17 10:00 05/01/17 09:46 Cordarone - PO 400 mg BID SIMON Administration Enoxaparin Sodium 65 mg 05/02/17 10:00 Lovenox - SQ BID SIMON Furosemide 40 mg 05/01/17 14:00 05/01/17 15:01 Lasix Injection - IVPUSH Not Given BIDLASIX SIMON Ampicillin Sodium 2 gm/ Sodium 100 mls @ 200 mls/hr 04/22/17 12:00 05/01/17 09:42 Chloride IVPB 200 mls/hr Q4H-IV SIMON Administration Gentamicin Sulfate 30 mg/ 100.75 mls @ 100.75 mls/hr 04/22/17 12:00 05/01/17 11:32 Sodium Chloride IVPB 100.75 mls/hr Q8H-IV SIMON Administration Famotidine/Sodium Chloride 20 mg in 50 mls @ 100 mls/hr 04/26/17 22:00 09:06 Pepcid 20 Mg Premixed Ivpb - IVPB 100 mls/hr BID SIMON Administration Dobutamine HCl 250,000 mcg/ 250 mls @ 19.7 mls/hr 04/30/17 08:15 05/01/17 11: 22 Sodium Chloride IV 0 mcg/kg/min TITR SIMON 0 mls/hr Protocol Titration 5 MCG/KG/MIN Fentanyl 500 mcg/ Dextrose 100 mls @ 10 mls/hr 04/30/17 08:15 05/01/17 12:29 IVPB 50 mcg/hr TITR SIMON 10 mls/hr Protocol Administration 50 MCG/HR Levothyroxine Sodium 75 mcg 04/15/17 07:00 05/01/17 06:20 Synthroid - PO 75 mcg DAILY@0700 SIMON Administration Melatonin 5 mg 04/18/17 16:54 04/19/17 23:05 Melatonin PO 5 mg HS PRN Administration INSOMNIA Saliva Substitute 1 applic 04/20/17 17:15 05/01/17 12:33 Mouthkote Solution - MM 1 applic DAILY SIMON Administration IMAGIN05/01/17 CXR -> no PTX. Tate parahilar consolidations and Right pleural effusion noted. Continue to monitor. 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 # septic shock 2/2 Listeria bacteremia and Listeria Meningitis - afebrile - on dobutamine - Day 9 on IV Ampicillin/Gentamicin # acute hypoxic respiratory failure - from septic shock, also likely 2/2 systolic CHF exacerbation from volume resuscitation - continue vent, titrate down as able - continue fentanyl drip as pt less tachypnic today # afib with RVR - continues to have bursts of RVR - continue home med of Xarelto - Cardiology (Dr. Andino) recs appreciated: reduce Amiodarone to 400mg daily # acute systolic CHF exacerbation - Lasix BID - strict I&O's - monitor daily wts - pt remains anasarcic # hypothyroidism - continue home med of Synthroid # FEN - Fluids: held for current diuresis - Electrolytes: corrected Calcium wnl, continue to monitor - Nutrition: tube feeding held # Prophylaxis - DVT ppx with Lovenox - GI ppx with Pepcid - deconditioning ppx with PT # dispo - Prognosis is poor. Pt condition discussed with pt family by Dr. Craft in [place]. Family has decided to sign DNR/DNI later tonight. Family thinking about hospice services and goals of care. Visit type - Emergency Visit Emergency Visit: Yes ED Registration Date: 04/14/17 Care time: The patient presented to the Emergency Department on the above date and was hospitalized for further evaluation of their emergent condition. - New Patient This patient is new to me today: Yes Date on this admission: 05/01/17 - Critical Care Critical Care patient: Yes Total Critical Care Time (in minutes): 45 Critical Care Statement: The care of this patient involved high complexity decision making to prevent further life threatening deterioration of the patient 's condition and/or to evaluate & treat vital organ system(s) failure or risk of failure.
[2017-05-01] MEDS ORDERED: PHENYLEPHRINE HCL 10 MG/1 ML SINGLE DOSE VIAL ONE (23:55)
[2017-05-02] MEDS: PHENYLEPHRINE HCL 20,000 MCG in SODIUM CHLORIDE 248 ML IVPB SCH ×2 (00:06→23:45)
[2017-05-02] MEDS: DOBUTAMINE HCL 250,000 MCG in SODIUM CHLORIDE 230 ML IV SCH (00:06)
[2017-05-02] MEDS ORDERED: fentaNYL CITRATE 250 MCG/5 ML VIAL ONE ×5 (01:05→23:39)
[2017-05-02] MEDS: AMPICILLIN - 2 GM in SODIUM CHLORIDE 100 ML IVPB SCH ×6 (03:18→21:10)
[2017-05-02] MEDS: GENTAMICIN IVPB SCH ×3 (03:19→17:10)
[2017-05-02] MEDS: SODIUM CHLORIDE IVPB SCH ×3 (03:19→17:10)
[2017-05-02] MEDS: FUROSEMIDE 40 MG/4 ML INJECTABLE VIAL IVPUSH SCH ×2 (05:08→13:09)
[2017-05-02] MEDS: LEVOTHYROXINE NA 75 MCG TABLET (FP) PO SCH (06:18)
[2017-05-02 06:27] LABS: BASO % 0.1 % (0-2.0); EOS % 0.1 % (0-4.5); HEMATOCRIT 34.6 % (32.4-45.2); HEMOGLOBIN 11.1 GM/dL (10.7-15.3); LYMPH % 1.2 % (8-40); MCH 27.5 pg (25.7-33.7); MCHC 32.2 g/dl (32.0-36.0); MEAN CELL VOLUME 85.5 fl (80-96); MEAN PLT VOLUME 9.1 fl (7.5-11.1); MONO % 1.4 % (3.8-10.2); NEUT % 97.2 % (42.8-82.8); PLATELET COUNT 170 K/MM3 (134-434); RBC 4.04 M/mm3 (3.60-5.2); RDW 18.8 % (11.6-15.6); WHITE BLOOD COUNT 10.4 K/mm3 (4.0-10.0)
[2017-05-02 06:55] LABS: ANION GAP 7 (8-16); BLOOD UREA NITROGEN 17 mg/dL (7-18); CHLORIDE 98 mmol/L (98-107); CO2 32 mmol/L (21-32); GLUCOSE,RANDOM 101 mg/dL (74-106); MAGNESIUM 1.9 mg/dL (1.8-2.4); POTASSIUM 3.7 mmol/L (3.5-5.1); SODIUM 137 mmol/L (136-145)
[2017-05-02 06:56] LABS: PROTHROMBIN TIME (PATIENT) 10.6 SEC (9.98-11.88)
[2017-05-02 06:57] LABS: ACTIVATED PTT 35.2 SECONDS (26.9-34.4); INR 0.94 (0.82-1.09)
[2017-05-02 06:59] LABS: ALK PHOS 205 U/L (45-117); BILIRUBIN,TOTAL 0.8 mg/dL (0.2-1.0); CREATININE 0.5 mg/dL (0.55-1.02); PHOSPHOROUS 3.6 mg/dL (2.5-4.9); SGOT/AST 58 U/L (15-37); SGPT/ALT 22 U/L (12-78); TOT PROT 3.7 g/dl (6.4-8.2)
[2017-05-02 07:03] LABS: ALBUMIN 0.9 g/dl (3.4-5.0)
[2017-05-02 07:04] LABS: CALCIUM 6.3 mg/dL (8.5-10.1)
--- NOTE | 2017-05-02 07:37 | PN ---
Progress Note, Physician History of Present Illness: 24 Hour Events: Patient remains sedated, intubated. Hypotension yesterday with minimum BP 74/52 and Lasix held last NOC, continued dobutamine. ABG PO2 was 49 yesterday PM and FiO2 increased to 60%. NGT held 2/2 high residuals. On CXR yesterday PM there was bilateral parahilar consolidation, right pleural effusion , couldn't r/o PNA. Primary team spoke with two family members yesterday afternoon who agreed she should be DNR. The HCP is a third family member ( daughter) who needs to come sign advance directive/DNR in order for this to be official, a voicemail was left for her. Subjective: Patient cannot provide. 24 Hour I/O: In: 1660cc Out: 2950cc Net: 1290cc BM: None reported - Current Medication List Current Medications: Active Medications Amiodarone HCl (Cordarone -) 400 mg PO BID [facility] Last Admin: 05/01/17 21:27 Dose: 400 mg Enoxaparin Sodium (Lovenox -) 65 mg SQ BID SIMON Furosemide (Lasix Injection -) 40 mg IVPUSH BIDLASIX SIMON Last Admin: 05/02/17 05:08 Dose: 40 mg Ampicillin Sodium 2 gm/ Sodium (Chloride) 100 mls @ 200 mls/hr IVPB Q4H-IV SIMON Last Admin: 05/02/17 05:06 Dose: 200 mls/hr Gentamicin Sulfate 30 mg/ (Sodium Chloride) 100.75 mls @ 100.75 mls/hr IVPB Q8H -IV SIMON Last Admin: 05/02/17 03:19 Dose: 100.75 mls/hr Famotidine/Sodium Chloride (Pepcid 20 Mg Premixed Ivpb -) 20 mg in 50 mls @ 100 mls/hr IVPB BID SIMON Last Admin: 05/01/17 21:27 Dose: 100 mls/hr Dobutamine HCl 250,000 mcg/ (Sodium Chloride) 250 mls @ 19.7 mls/hr IV TITR SIMON ; 5 MCG/KG/MIN PRN Reason: Protocol Last Admin: 05/02/17 00:06 Dose: 5 mcg/kg/min, 19.7 mls/hr Fentanyl 500 mcg/ Dextrose 100 mls @ 10 mls/hr IVPB TITR SIMON; 50 MCG/HR PRN Reason: Protocol Last Titration: 05/01/17 16:25 Dose: 100 mcg/hr, 20 mls/hr Phenylephrine HCl 20,000 mcg/ (Sodium Chloride) 250 mls @ 37.5 mls/hr IVPB ASDIR SIMON; 50 MCG/MIN PRN Reason: Protocol Last Admin: 05/02/17 00:06 Dose: 25 mcg/min, 18.75 mls/hr Levothyroxine Sodium (Synthroid -) 75 mcg PO DAILY@0700 SIMON Last Admin: 05/02/17 06:18 Dose: 75 mcg Melatonin (Melatonin) 5 mg PO HS PRN PRN Reason: INSOMNIA Last Admin: 04/19/17 23:05 Dose: 5 mg Saliva Substitute (Mouthkote Solution -) 1 applic MM DAILY SIMON Last Admin: 05/01/17 12:33 Dose: 1 applic - Objective Vital Signs: Vital Signs Temperature 98.2 F 05/02/17 06:00 Pulse Rate 60 05/02/17 06:00 Respiratory Rate 20 05/02/17 07:02 Blood Pressure 126/74 05/02/17 06:00 O2 Sat by Pulse Oximetry (%) 92 L 05/01/17 20:16 Constitutional: Yes: No Distress, Calm, Other (moving extremities, squeezes hand on command) Eyes: Yes: Conjunctiva Clear, EOM Intact HENT: Yes: Atraumatic, Normocephalic, Other (ET tube in place, dried blood upper lup) Neck: Yes: Supple, Trachea Midline Cardiovascular: Yes: Tachycardia Respiratory: Yes: Other (bilaterak crackles/rhonchi) Gastrointestinal: Yes: Normal Bowel Sounds, Soft Extremities: Yes: Other (edematous, unchanged exam, SCDs in place) Edema: Yes Edema: LUE: 2+, RUE: 2+, LLE: 2+, RLE: 2+ Neurological: Yes: Other (sedated, intubated). No: Alert Labs: CBC, BMP 05/02/17 05:20 05/02/17 05:20 INR, PTT INR 0.94 (0.82-1.09) 05/02/17 05:20 Fibrinogen 252.0 mg/dL (238-498) 04/23/17 05:15 - ....Imaging Chest X-ray: Report Reviewed, Image Reviewed (bilateral consolidations, R>L, right pleural effusion), Other Assessment/Plan ASSESSMENT/PLAN: 86 YOF with h/o A-fib, CAD s/p stents, CHF, HLD, hypothyroidism, presented to ED initially in A-fib with RVR, found to be septic, blood cx grew Listeria, 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 NEURO Patient is intubated. -Sedated with propofol w/ sedation vacations -Will continue to monitor CV #Hypotension, worsening. BP overnight was down to 74/52. -Add norepi, titrate up. -When BP improved on norepi, stop phenylephrine -When BP improved on norepi off phenylephrine, stop dobutamine -Continue careful diuresis with bolus dosing only when SBP>90, MAP>65 -Will continue to monitor #Afib with RVR Patient initially presented with HR 160 now improved but remains mild tachycardic on amiodarone. Patient on xarelto at home for anti-coagulation. Cardiology is following. -Decreased amiodarone to once/day dose per cardiology recs -Continue lovenox, now 1 mg/kg BID -Will continue to monitor closely -Appreciate cardiology recs #CHF (EF 20%, 2018) Patient being diuresed carefully d/t soft pressures/hypotension, needs SBP>90 and MAP>66 for Lasix bolus to be given -Conservative fluid hydration -Will continue to monitor closely RESP #Respiratory distress. Still intubated/on vent. -Continue vent settings and ween down as tolerated -Ask RT to document vitals with FiO2 at or below 50% -Continue daily CXR -Close monitoring of the patient's O2 saturation -Continue daily ABG GI #Elevated Liver Enzymes -Will continue to monitor and trend Renal No issues currently -Will continue to monitor BUN/creatinine ID #Sepsis Blood cultures/CSF cultures concerning for Listeria meningitis. -Continue Ampicillin and Gentamycin for aggressive antibiotic coverage -Continue to manage fever with Tylenol -Serial CXR -Will continue to monitor -ID is following and appreciate recs MSK No issues currently FEN/GI -Replete electrolytes PRN, will monitor -Ordered 30 cc Prosource BID per Dietitian recs PPX -Continue Lovenox, change dose to 1 mg/kg BID. Lines/Drains/Tubes (updated 05/02/17) Judge: on day 8 now CVC: on day 9 now Feeding tube: placed 04/20/17 ET tube PIV DISPO: Continue ICU level of care. Prognosis poor. Primary team spoke with two family members who agreed with DNR status last night but a different family member is the official HCP and she has been out of contact, VM left.
--- NOTE | 2017-05-02 08:47 | PN ---
Physical Exam: SUBJECTIVE: Patient seen and examined. Pt remains intubated. Tube feeding resumed. No events overnight. OBJECTIVE: Vital Signs Period Temp Pulse Resp BP Sys/Gandara Pulse Ox Last 24 Hr 98.2 F-98.6 F 60-131 12-29 74-126/52-79 88-92 GENERAL: Pt is intubated, looks comfortable. Withdraws to pain. LUNGS: cornelius coarse rhonchi. HEART: Tachycardic, irregular, +S1/S2. ABDOMEN: Soft, nontender, nondistended. EXTREMITIES: Warm, well-perfused. 4+ pitting edema x 4 extremities. SKIN: Warm, dry, normal turgor, no rashes or lesions noted Laboratory Results - last 24 hr 05/01/17 05/01/17 05/02/17 05:10 16:40 05:20 WBC 10.4 H RBC 4.04 Hgb 11.1 Hct 34.6 MCV 85.5 MCH 27.5 MCHC 32.2 RDW 18.8 H Plt Count 170 MPV 9.1 Neutrophils % 97.2 H Lymphocytes % 1.2 L Monocytes % 1.4 L Eosinophils % 0.1 D Basophils % 0.1 PT with INR INR PTT (Actin FS) Anticoagulation Therapy No Result Required. Puncture Site Right radial ABG pH 7.43 ABG pCO2 at Pt Temp 42.8 D ABG pO2 at Pt Temp 49.0 L* D ABG HCO3 28.3 H ABG O2 Sat (Measured) 84.6 L ABG O2 Content 13.7 L ABG Base Excess 4.1 H José Miguel Test Positive O2 Delivery Device No Result Required. Oxygen Flow Rate No Result Required. Vent Mode No Result Required. Vent Rate No Result Required. Mechanical Rate No Result Required. Pressure Support Vent No Result Required. Sodium 136 Potassium 3.9 Chloride 99 Carbon Dioxide 31 Anion Gap 6 L BUN 17 Creatinine 0.5 L Creat Clearance w eGFR > 60 Random Glucose 79 Calcium 6.2 L* Phosphorus 3.1 Magnesium 1.9 Total Bilirubin 0.8 AST 50 H ALT 20 Alkaline Phosphatase 229 H Total Protein 3.5 L Albumin 0.9 L 05/02/17 05/02/17 05:20 05:20 WBC RBC Hgb Hct MCV MCH MCHC RDW Plt Count MPV Neutrophils % Lymphocytes % Monocytes % Eosinophils % Basophils % PT with INR 10.60 INR 0.94 PTT (Actin FS) 35.2 H Anticoagulation Therapy Puncture Site ABG pH ABG pCO2 at Pt Temp ABG pO2 at Pt Temp ABG HCO3 ABG O2 Sat (Measured) ABG O2 Content ABG Base Excess José Miguel Test O2 Delivery Device Oxygen Flow Rate Vent Mode Vent Rate Mechanical Rate Pressure Support Vent Sodium 137 Potassium 3.7 Chloride 98 Carbon Dioxide 32 Anion Gap 7 L BUN 17 Creatinine 0.5 L Creat Clearance w eGFR > 60 Random Glucose 101 Calcium 6.3 L* Phosphorus 3.6 Magnesium 1.9 Total Bilirubin 0.8 AST 58 H ALT 22 Alkaline Phosphatase 205 H Total Protein 3.7 L Albumin 0.9 L Active Medications Generic Name Dose Route Start Last Admin Trade Name Freq PRN Reason Stop Dose Admin Amiodarone HCl 400 mg 04/20/17 10:00 05/01/17 21:27 Cordarone - PO 400 mg BID SIMON Administration Enoxaparin Sodium 65 mg 05/02/17 10:00 Lovenox - SQ BID SIMON Furosemide 40 mg 05/01/17 14:00 05/02/17 05:08 Lasix Injection - IVPUSH 40 mg BIDLASIX SIMON Administration Ampicillin Sodium 2 gm/ Sodium 100 mls @ 200 mls/hr 04/22/17 12:00 05/02/17 05:06 Chloride IVPB 200 mls/hr Q4H-IV SIMON Administration Gentamicin Sulfate 30 mg/ 100.75 mls @ 100.75 mls/hr 04/22/17 12:00 05/02/17 03:19 Sodium Chloride IVPB 100.75 mls/hr Q8H-IV SIMON Administration Famotidine/Sodium Chloride 20 mg in 50 mls @ 100 mls/hr 04/26/17 22:00 21:27 Pepcid 20 Mg Premixed Ivpb - IVPB 100 mls/hr BID SIMON Administration Dobutamine HCl 250,000 mcg/ 250 mls @ 19.7 mls/hr 04/30/17 08:15 05/02/17 00: 06 Sodium Chloride IV 5 mcg/kg/min TITR SIMON 19.7 mls/hr Protocol Administration 5 MCG/KG/MIN Fentanyl 500 mcg/ Dextrose 100 mls @ 10 mls/hr 04/30/17 08:15 05/01/17 16:25 IVPB 100 mcg/hr TITR SIMON 20 mls/hr Protocol Titration 50 MCG/HR Phenylephrine HCl 20,000 mcg/ 250 mls @ 37.5 mls/hr 05/01/17 23:45 05/02/17 00:06 Sodium Chloride IVPB 25 mcg/min ASDIR SIMON 18.75 mls/hr Protocol Administration 50 MCG/MIN Levothyroxine Sodium 75 mcg 04/15/17 07:00 05/02/17 06:18 Synthroid - PO 75 mcg DAILY@0700 SIMON Administration Melatonin 5 mg 04/18/17 16:54 04/19/17 23:05 Melatonin PO 5 mg HS PRN Administration INSOMNIA Saliva Substitute 1 applic 04/20/17 17:15 05/01/17 12:33 Mouthkote Solution - MM 1 applic DAILY SIMON Administration ASSESSMENT/PLAN: 86F with PMH of afib on Xarelto, CAD s/p stents (2009), systolic CHF, hld, hypothyroidism, 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 # septic shock 2/2 Listeria bacteremia and Listeria Meningitis - afebrile - on dobutamine and phenylephrine - Day 10 on IV Ampicillin/Gentamicin # acute hypoxic respiratory failure - from septic shock, also likely 2/2 systolic CHF exacerbation from volume resuscitation - continue vent - continue fentanyl drip as pt less tachypnic today # afib with RVR - continues to have bursts of RVR - continue home med of Xarelto - Cardiology (Dr. Andino) recs appreciated: reduce Amiodarone to 400mg daily # acute systolic CHF exacerbation - Lasix BID - strict I&O's - monitor daily wts - pt remains anasarcic # hypothyroidism - continue home med of Synthroid # FEN - Fluids: held for current diuresis - Electrolytes: corrected Calcium wnl, continue to monitor - Nutrition: Osmolite 1.2 @ 20 ml/hr, goal rate 52 ml/hr for TV 1250ml # Prophylaxis - DVT ppx with Lovenox - GI ppx with Pepcid - deconditioning ppx with PT # dispo - Prognosis is poor. Another family meeting scheduled for today to discuss goals of care. Visit type - Emergency Visit Emergency Visit: Yes ED Registration Date: 04/14/17 Care time: The patient presented to the Emergency Department on the above date and was hospitalized for further evaluation of their emergent condition. - New Patient This patient is new to me today: No - Critical Care Critical Care patient: Yes Total Critical Care Time (in minutes): 40 Critical Care Statement: The care of this patient involved high complexity decision making to prevent further life threatening deterioration of the patient 's condition and/or to evaluate & treat vital organ system(s) failure or risk of failure.
[2017-05-02 08:55] LABS: ARTERIAL BLOOD GAS PCO2 47.7 mmHg (35-45); ARTERIAL BLOOD GAS PO2 60.7 mmHg (68-100)
[2017-05-02 08:56] LABS: ALLENS TEST POSITIVE
--- NOTE | 2017-05-02 08:59 | PN ---
Progress Note, Physician Chief Complaint: Pt remains intubated; grasps hand, rolls eyes; does not follow commands. History of Present Illness: Patient is an 86 year old female with a significant past medical history of CAD w/ stents, afib on xarelto, HFpEF (EF 67.8%, 2016) and HLD who presents to the ED for tachycardia. Patient was seen in cardiology clinic today and was found on EKG to be in afib with RVR with a rate of 160. She was subsequently sent to ER for management. Patient currently has no complaints or pain while in the ED. Denies ever having CP/SOB/palpitations. Denies F/C/N/V/D. Reports compliance with all of her medications. Allergies: None Social history: Lives with daughter. No smoking. No alcohol. No illicit drugs. Surgical history: None PMD: Dr Parrish. Tape Stringer: Dr. Andino " - Current Medication List Current Medications: Active Medications Amiodarone HCl (Cordarone -) 400 mg PO BID [facility] Last Admin: 05/01/17 21:27 Dose: 400 mg Enoxaparin Sodium (Lovenox -) 65 mg SQ BID [facility] Furosemide (Lasix Injection -) 40 mg IVPUSH BIDLASIX [facility] Last Admin: 05/02/17 05:08 Dose: 40 mg Ampicillin Sodium 2 gm/ Sodium (Chloride) 100 mls @ 200 mls/hr IVPB Q4H-IV [facility] Last Admin: 05/02/17 05:06 Dose: 200 mls/hr Gentamicin Sulfate 30 mg/ (Sodium Chloride) 100.75 mls @ 100.75 mls/hr IVPB Q8H -IV [facility] Last Admin: 05/02/17 03:19 Dose: 100.75 mls/hr Famotidine/Sodium Chloride (Pepcid 20 Mg Premixed Ivpb -) 20 mg in 50 mls @ 100 mls/hr IVPB BID [facility] Last Admin: 05/01/17 21:27 Dose: 100 mls/hr Dobutamine HCl 250,000 mcg/ (Sodium Chloride) 250 mls @ 19.7 mls/hr IV TITR [facility] ; 5 MCG/KG/MIN PRN Reason: Protocol Last Admin: 05/02/17 00:06 Dose: 5 mcg/kg/min, 19.7 mls/hr Fentanyl 500 mcg/ Dextrose 100 mls @ 10 mls/hr IVPB TITR [facility]ON; 50 MCG/HR PRN Reason: Protocol Last Titration: 05/01/17 16:25 Dose: 100 mcg/hr, 20 mls/hr Phenylephrine HCl 20,000 mcg/ (Sodium Chloride) 250 mls @ 37.5 mls/hr IVPB ASDIR [facility]ON; 50 MCG/MIN PRN Reason: Protocol Last Admin: 05/02/17 00:06 Dose: 25 mcg/min, 18.75 mls/hr Levothyroxine Sodium (Synthroid -) 75 mcg PO DAILY@0700 [facility] Last Admin: 05/02/17 06:18 Dose: 75 mcg Melatonin (Melatonin) 5 mg PO HS PRN PRN Reason: INSOMNIA Last Admin: 04/19/17 23:05 Dose: 5 mg Saliva Substitute (Mouthkote Solution -) 1 applic MM DAILY [facility] Last Admin: 05/01/17 12:33 Dose: 1 applic - Objective Vital Signs: Vital Signs Temperature 98.2 F 05/02/17 06:00 Pulse Rate 60 05/02/17 06:00 Respiratory Rate 21 05/02/17 08:21 Blood Pressure 126/74 05/02/17 06:00 O2 Sat by Pulse Oximetry (%) 92 L 05/01/17 20:16 Constitutional: Yes: Anxious, Thin Eyes: Yes: Tearing Neck: Yes: WNL Cardiovascular: Yes: Tachycardia Respiratory: Yes: Diminished Gastrointestinal: Yes: Soft Genitourinary: No: Anuria Musculoskeletal: Yes: Muscle Weakness Extremities: Yes: Cold Edema: Yes Edema: LUE: 2+, RUE: 2+, LLE: 2+, RLE: 2+ Peripheral Pulses WNL: No Peripheral Pulses: Left Doralis Pedis: 1+, Right Dorsalis Pedis: 1+ Integumentary: Yes: Venous Stasis Changes, Other Neurological: Yes: Other Psychiatric: Yes: Agitated Labs: CBC, BMP 05/02/17 05:20 05/02/17 05:20 INR, PTT INR 0.94 (0.82-1.09) 05/02/17 05:20 Fibrinogen 252.0 mg/dL (238-498) 04/23/17 05:15 Problem List - Problems (1) Atrial fibrillation with RVR Assessment/Plan: . metoprolol held due to hypotension. On amiodarone PO loading ; decreased to 400 mb daily. May consider anticoagulation (e.g. IV heparin). Code(s): I48.91 - UNSPECIFIED ATRIAL FIBRILLATION (2) CAD (coronary artery disease) Code(s): I25.10 - ATHSCL HEART DISEASE OF [place] CORONARY ARTERY W/O ANG PCTRS (3) Hypothyroid Assessment/Plan: elevated TSH; free T4 is also mildly elevated. Following thyroid function is especially important when on amiodarone (dose to be reduced to 400 mg daily for a week, with plan to maintain on 100 mg daily). Code(s): E03.9 - HYPOTHYROIDISM, UNSPECIFIED (4) Renal insufficiency Assessment/Plan: f/u carefully (on furosemide for acute CHF); avoid excessive dehydration. 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 Code(s): J96.00 - ACUTE RESPIRATORY FAILURE, UNSP W HYPOXIA OR HYPERCAPNIA (6) Septic shock Assessment/Plan: remains febrile; Listeria meningitis. Antibiotics per ID. Fluids; monitor Is and Os, daily weight, BUN?cr, electrolytes. On dubutamine LVEF is severely reduced, (and pt known to have significant MR)- -> dobuamine.for attempt to improve cardiac output (dose lowered due to tachycardia; vasodilatory effcts may be predominate at the 5 ucg presently being given). On phenylephrine.. Code(s): A41.9 - SEPSIS, UNSPECIFIED ORGANISM; R65.21 - SEVERE SEPSIS WITH SEPTIC SHOCK (7) CHF (congestive heart failure) Assessment/Plan: Severe systolic LV dysfunction, with severe pulmonary HTN. On dual pressors (dobutamine and phenylephrine). Tachycardic despite being on low-dose dobutamine (with likely vasodilatation). s. Code(s): I50.9 - HEART FAILURE, UNSPECIFIED (8) Hypoalbuminemia Code(s): E88.09 - OTH DISORDERS OF PLASMA-PROTEIN METABOLISM, NEC
[2017-05-02] MEDS: FAMOTIDINE 20 MG/50 ML IVPB 20 MG/50 ML MG IVPB SCH ×2 (09:03→21:09)
[2017-05-02] MEDS: LYTES/YERBA SANTA 240 ML BOTTLE MM SCH (09:04)
[2017-05-02] MEDS: AMIODARONE HCL 200 MG TABLET (FP) PO SCH (09:05)
[2017-05-02] MEDS: ENOXAPARIN NA (PORCINE) 80 MG/0.8 ML DISP.SYRIN SQ SCH ×2 (09:14→21:10)
--- NOTE | 2017-05-02 09:16 | PN ---
Progress Note (short form) - Note Progress Note: sedated and intubated Vital Signs Period Temp Pulse Resp BP Sys/Gandara Pulse Ox Last 24 Hr 98.2 F-98.6 F 60-131 12-29 74-126/52-79 88-92 cor-rrr lungs decreased bs at bases abd soft,nt ext +edema CBC, BMP 05/02/17 05:20 05/02/17 05:20 Microbiology 04/25/17 11:15 Blood - Peripheral Venous Blood Culture - Final NO GROWTH AFTER 5 DAYS INCUBATION 04/25/17 09:35 Blood - Peripheral Venous Blood Culture - Final NO GROWTH AFTER 5 DAYS INCUBATION 04/20/17 09:15 Blood - Peripheral Venous Blood Culture - Preliminary Listeria Monocytogenes 04/25/17 11:00 Sputum - Endotrachea Suction/Ventilator Gram Stain - Final 04/25/17 11:00 Sputum - Endotrachea Suction/Ventilator Sputum Culture - Final Yeast Like Organism 04/22/17 11:34 Blood - Peripheral Venous Blood Culture - Final NO GROWTH AFTER 5 DAYS INCUBATION 04/22/17 11:29 Blood - Peripheral Venous Blood Culture - Final NO GROWTH AFTER 5 DAYS INCUBATION 04/22/17 16:45 Cerebral Spinal Fluid - Lumbar Puncture AFB Smear Concentration - Final 04/25/17 11:18 Urine - Urine Judge Urine Culture - Final NO GROWTH OBTAINED 04/22/17 16:45 Cerebral Spinal Fluid - Lumbar Puncture Gram Stain - Final 04/22/17 16:45 Cerebral Spinal Fluid - Lumbar Puncture CSF Culture - Final NO GROWTH AFTER 48 HOURS INCUBATION 04/20/17 08:30 Blood - Peripheral Venous Blood Culture - Final Listeria Monocytogenes 04/23/17 10:05 Urine For Antigen Detection Legionella Antigen - Final 04/23/17 10:05 Urine For Antigen Detection Streptococcus pneumoniae Antigen (M - Final 04/22/17 16:45 Cerebral Spinal Fluid - Lumbar Puncture Streptococcus pneumoniae Antigen (M - Final 04/18/17 08:00 Blood - Peripheral Venous Blood Culture - Final NO GROWTH AFTER 5 DAYS INCUBATION 04/18/17 08:00 Blood - Peripheral Venous Blood Culture - Final NO GROWTH AFTER 5 DAYS INCUBATION 04/20/17 11:05 Urine - Urine - Catheterized Urine Culture - Final NO GROWTH OBTAINED 04/20/17 07:55 Nasopharyngeal Swab Influenza Types A,B Antigen (SÁNCHEZ) - Final 04/20/17 07:55 Nasopharyngeal Swab - Final 04/15/17 04:30 Nasopharyngeal Swab Influenza Types A,B Antigen (SÁNCHEZ) - Final 04/15/17 04:30 Nasopharyngeal Swab - Final a/p chart reviewed listeria sepsis- bacteremia with meningitis to continue amp/gentamicin day #10 gent trough ordered for today afib pulmonary HTN CHF respiratory failure overall prognosis is poor d/w cardiology d/w hospitalist considering palliative care evaluation
[2017-05-02] MEDS ORDERED: ENOXAPARIN NA (PORCINE) 60 MG/0.6 ML DISP.SYRIN SQ SCH (10:00)
[2017-05-02] MEDS ORDERED: NOREPINEPHRINE BITARTRATE 4 MG/4 ML ML IV ONE (11:39)
[2017-05-02] MEDS: NOREPINEPHRINE BITARTRATE 8,000 MCG in DEXTROSE 5%-WATER - 492 ML IV SCH (12:20)
--- NOTE | 2017-05-02 12:31 | PN ---
Teaching Attending Note Name of Resident: Fátima Felix ATTENDING PHYSICIAN STATEMENT I saw and evaluated the patient. I reviewed the resident's note and discussed the case with the resident. I agree with the resident's findings and plan as documented. SUBJECTIVE: Pt seen and examined in the ICU. Remains intubated, sedated on dobutamine and phenylephrine gtts. Vented on volume assist control with 70% FiO2. OBJECTIVE: Last Vital Signs Temp Pulse Resp BP Pulse Ox 99.2 F 127 H 27 H 87/70 93 L 05/02/17 10:00 05/02/17 10:00 05/02/17 11:14 05/02/17 10:00 05/02/17 10:45 Intake & Output 04/29/17 04/30/17 05/01/17 05/02/17 23:59 23:59 23:59 23:59 Intake Total 2886.0 2569.4 1660 1333 Output Total 2550 2400 2950 600 Balance 336.0 169.4 -1290 733 Weight 64.3 kg 65.68 kg 64.773 kg 65.907 kg Gen: intubated, sedated Heart: tachycardic, regular Lung: bilateral rhonchi Abd: soft, nontender Ext: + edema/anasarca CBC, BMP 05/02/17 05:20 05/02/17 05:20 Active Medications Amiodarone HCl (Cordarone -) 400 mg PO DAILY [facility] Enoxaparin Sodium (Lovenox -) 65 mg SQ BID [facility] Last Admin: 05/02/17 09:14 Dose: 65 mg Furosemide (Lasix Injection -) 40 mg IVPUSH BIDLASIX [facility] Last Admin: 05/02/17 05:08 Dose: 40 mg Ampicillin Sodium 2 gm/ Sodium (Chloride) 100 mls @ 200 mls/hr IVPB Q4H-IV [facility] Last Admin: 05/02/17 09:03 Dose: 200 mls/hr Gentamicin Sulfate 30 mg/ (Sodium Chloride) 100.75 mls @ 100.75 mls/hr IVPB Q8H -IV [facility] Last Admin: 05/02/17 09:12 Dose: 100.75 mls/hr Famotidine/Sodium Chloride (Pepcid 20 Mg Premixed Ivpb -) 20 mg in 50 mls @ 100 mls/hr IVPB BID [facility] Last Admin: 05/02/17 09:03 Dose: 100 mls/hr Dobutamine HCl 250,000 mcg/ (Sodium Chloride) 250 mls @ 19.7 mls/hr IV TITR [facility] ; 5 MCG/KG/MIN PRN Reason: Protocol Last Admin: 05/02/17 00:06 Dose: 5 mcg/kg/min, 19.7 mls/hr Fentanyl 500 mcg/ Dextrose 100 mls @ 10 mls/hr IVPB TITR [facility]; 50 MCG/HR PRN Reason: Protocol Last Titration: 05/01/17 16:25 Dose: 100 mcg/hr, 20 mls/hr Phenylephrine HCl 20,000 mcg/ (Sodium Chloride) 250 mls @ 37.5 mls/hr IVPB ASDIR [facility]; 50 MCG/MIN PRN Reason: Protocol Last Admin: 05/02/17 00:06 Dose: 25 mcg/min, 18.75 mls/hr Norepinephrine Bitartrate 8, (000 mcg/ Dextrose) 500 mls @ 18.75 mls/hr IV TITR [facility]; 5 MCG/MIN PRN Reason: Protocol Last Admin: 05/02/17 12:20 Dose: 5 mcg/min, 18.75 mls/hr Levothyroxine Sodium (Synthroid -) 75 mcg PO DAILY@0700 [facility] Last Admin: 05/02/17 06:18 Dose: 75 mcg Melatonin (Melatonin) 5 mg PO HS PRN PRN Reason: INSOMNIA Last Admin: 04/19/17 23:05 Dose: 5 mg Saliva Substitute (Mouthkote Solution -) 1 applic MM DAILY [facility] Last Admin: 05/02/17 09:04 Dose: 1 applic ASSESSMENT AND PLAN: Acute Hypoxic Respiratory Failure Listeria Meningitis/Bacteremia Acute Colitis Septic vs Cardiogenic Shock Atrial Fibrillation with RVR Acute Kidney Injury improving Lactic Acidosis resolved Elevated LFTs resolved Acute on Chronic Diastolic/Systolic Heart Failure Coagulopathy improved Hypothyroidism - continue antibiotics per ID - IVF/colloids to keep CVP 8-12 - resume levophed gtt, maintain MAP >65 - d/c phenylephrine gtt, taper off dobutamine gtt - continue lasix if BP tolerates - monitor urine output, creatinine - rate control - continue anticoagulation - replete lytes - taper O2 to keep SpO2 >90% - not a candidate for weaning at this time due to oxygen requirements - enteral feeds - DVT/GI prophylaxis - continue ICU monitoring - guarded prognosis, continue discussions regarding goals of care and advanced directives critical care time spent in reviewing chart, evaluating patient and formulating plan 35 min
[2017-05-02] MEDS: FENTANYL INJECTION 500 MCG in DEXTROSE 5%-WATER - 90 ML IVPB SCH ×2 (13:09→23:42)
--- NOTE | 2017-05-02 13:19 | PN ---
Teaching Attending Note Name of Resident: Maya Berger ATTENDING PHYSICIAN STATEMENT Time of evaluation: 9:10 AM I saw and evaluated the patient. I reviewed the resident's note and discussed the case with the resident. I agree with the resident's findings and plan as documented. SUBJECTIVE: Patient seen and examined. intubated, sedated, opens eyes partly when called, moves all extremities to pain, but unable to assess for ROS. OBJECTIVE: Vital Signs Period Temp Pulse Resp BP Sys/Gandara Pulse Ox Last 24 Hr 98.2 F-99.2 F 60-131 12-29 74-126/52-77 85-93 Intake & Output 04/29/17 04/30/17 05/01/17 05/02/17 23:59 23:59 23:59 23:59 Intake Total 2886.0 2569.4 1660 1333 Output Total 2550 2400 2950 600 Balance 336.0 169.4 -1290 733 Weight 141 lb 12.116 oz 144 lb 12.8 oz 142 lb 12.8 oz 145 lb 4.8 oz general: lying in bed, intubated, sedated, anasarcic HEENT: Pupils bilateral symmetric but sluggish response to light CVS:S1S2 irregular, tachycardic Abdomen: soft, distended, no grimacing on deep palpation but limited exam, positive bowel sounds Chest: bilateral coarse rales Extremities: anasarca, positive pulses Neuro: facial symmetry, intubated sedated, partly opens eyes when called, withdraws all extremities to painful stimuli, further exam limited Home Medication List Medication Instructions Recorded Confirmed Type Lisinopril [Zestril] 2.5 mg PO DAILY 03/13/16 04/14/17 History Levothyroxine [Synthroid -] 75 mcg PO DAILY@0700 04/14/17 04/14/17 History Metoprolol Tartrate 25 mg PO DAILY 04/18/17 04/18/17 History Omeprazole 40 mg PO DAILY 04/18/17 04/18/17 History Potassium Citrate [Potassium 20 meq PO DAILY 04/18/17 04/18/17 History Citrate ER] Active Medications Generic Name Dose Route Start Last Admin Trade Name Freq PRN Reason Stop Dose Admin Amiodarone HCl 400 mg 05/02/17 10:00 Cordarone - PO DAILY [facility] Enoxaparin Sodium 65 mg 05/02/17 10:00 05/02/17 09:14 Lovenox - SQ 65 mg BID [facility] Administration Furosemide 40 mg 05/01/17 14:00 05/02/17 13:09 Lasix Injection - IVPUSH 40 mg BIDLASIX [facility] Administration Ampicillin Sodium 2 gm/ Sodium 100 mls @ 200 mls/hr 04/22/17 12:00 05/02/17 09:03 Chloride IVPB 200 mls/hr Q4H-IV [facility] Administration Gentamicin Sulfate 30 mg/ 100.75 mls @ 100.75 mls/hr 04/22/17 12:00 05/02/17 09:12 Sodium Chloride IVPB 100.75 mls/hr Q8H-IV [facility] Administration Famotidine/Sodium Chloride 20 mg in 50 mls @ 100 mls/hr 04/26/17 22:00 09:03 Pepcid 20 Mg Premixed Ivpb - IVPB 100 mls/hr BID [facility] Administration Dobutamine HCl 250,000 mcg/ 250 mls @ 19.7 mls/hr 04/30/17 08:15 05/02/17 00: 06 Sodium Chloride IV 5 mcg/kg/min TITR [facility] 19.7 mls/hr Protocol Administration 5 MCG/KG/MIN Fentanyl 500 mcg/ Dextrose 100 mls @ 10 mls/hr 04/30/17 08:15 05/02/17 13:09 IVPB 100 mcg/hr TITR [facility] 20 mls/hr Protocol Administration 50 MCG/HR Phenylephrine HCl 20,000 mcg/ 250 mls @ 37.5 mls/hr 05/01/17 23:45 05/02/17 00:06 Sodium Chloride IVPB 25 mcg/min ASDIR [facility] 18.75 mls/hr Protocol Administration 50 MCG/MIN Norepinephrine Bitartrate 8, 500 mls @ 18.75 mls/hr 05/02/17 11:15 05/02/17 12:20 000 mcg/ Dextrose IV 5 mcg/min TITR [facility] 18.75 mls/hr Protocol Administration 5 MCG/MIN Levothyroxine Sodium 75 mcg 04/15/17 07:00 05/02/17 06:18 Synthroid - PO 75 mcg DAILY@0700 [facility] Administration Melatonin 5 mg 04/18/17 16:54 04/19/17 23:05 Melatonin PO 5 mg HS PRN Administration INSOMNIA Saliva Substitute 1 applic 04/20/17 17:15 05/02/17 09:04 Mouthkote Solution - MM 1 applic DAILY [facility] Administration Laboratory Results - last 24 hr 05/01/17 05/02/17 05/02/17 16:40 05:20 05:20 WBC 10.4 H RBC 4.04 Hgb 11.1 Hct 34.6 MCV 85.5 MCH 27.5 MCHC 32.2 RDW 18.8 H Plt Count 170 MPV 9.1 Neutrophils % 97.2 H Lymphocytes % 1.2 L Monocytes % 1.4 L Eosinophils % 0.1 D Basophils % 0.1 PT with INR 10.60 INR 0.94 PTT (Actin FS) 35.2 H Anticoagulation Therapy No Result Required. Puncture Site Right radial ABG pH 7.43 ABG pCO2 at Pt Temp 42.8 D ABG pO2 at Pt Temp 49.0 L* D ABG HCO3 28.3 H ABG O2 Sat (Measured) 84.6 L ABG O2 Content 13.7 L ABG Base Excess 4.1 H José Miguel Test Positive O2 Delivery Device No Result Required. Oxygen Flow Rate No Result Required. Vent Mode No Result Required. Vent Rate No Result Required. Mechanical Rate No Result Required. PEEP Pressure Support Vent No Result Required. Sodium Potassium Chloride Carbon Dioxide Anion Gap BUN Creatinine Creat Clearance w eGFR Random Glucose Calcium Phosphorus Magnesium Total Bilirubin AST ALT Alkaline Phosphatase Total Protein Albumin Gentamicin Trough 05/02/17 05/02/17 05/02/17 05:20 08:40 09:25 WBC RBC Hgb Hct MCV MCH MCHC RDW Plt Count MPV Neutrophils % Lymphocytes % Monocytes % Eosinophils % Basophils % PT with INR INR PTT (Actin FS) Anticoagulation Therapy Puncture Site Right radial ABG pH 7.40 ABG pCO2 at Pt Temp 47.7 H ABG pO2 at Pt Temp 60.7 L D ABG HCO3 29.0 H ABG O2 Sat (Measured) 91.0 ABG O2 Content 14.0 L ABG Base Excess 4.0 H José Miguel Test Positive O2 Delivery Device Oxygen Flow Rate 70 Vent Mode Vent Rate 12 Mechanical Rate PEEP 5.0 Pressure Support Vent 350 Sodium 137 Potassium 3.7 Chloride 98 Carbon Dioxide 32 Anion Gap 7 L BUN 17 Creatinine 0.5 L Creat Clearance w eGFR > 60 Random Glucose 101 Calcium 6.3 L* Phosphorus 3.6 Magnesium 1.9 Total Bilirubin 0.8 AST 58 H ALT 22 Alkaline Phosphatase 205 H Total Protein 3.7 L Albumin 0.9 L Gentamicin Trough 2.0 Microbiology 04/25/17 11:15 Blood - Peripheral Venous Blood Culture - Final NO GROWTH AFTER 5 DAYS INCUBATION 04/25/17 09:35 Blood - Peripheral Venous Blood Culture - Final NO GROWTH AFTER 5 DAYS INCUBATION 04/20/17 09:15 Blood - Peripheral Venous Blood Culture - Preliminary Listeria Monocytogenes 04/25/17 11:00 Sputum - Endotrachea Suction/Ventilator Gram Stain - Final 04/25/17 11:00 Sputum - Endotrachea Suction/Ventilator Sputum Culture - Final Yeast Like Organism 04/22/17 11:34 Blood - Peripheral Venous Blood Culture - Final NO GROWTH AFTER 5 DAYS INCUBATION 04/22/17 11:29 Blood - Peripheral Venous Blood Culture - Final NO GROWTH AFTER 5 DAYS INCUBATION 04/22/17 16:45 Cerebral Spinal Fluid - Lumbar Puncture AFB Smear Concentration - Final 04/25/17 11:18 Urine - Urine Judge Urine Culture - Final NO GROWTH OBTAINED 04/22/17 16:45 Cerebral Spinal Fluid - Lumbar Puncture Gram Stain - Final 04/22/17 16:45 Cerebral Spinal Fluid - Lumbar Puncture CSF Culture - Final NO GROWTH AFTER 48 HOURS INCUBATION 04/20/17 08:30 Blood - Peripheral Venous Blood Culture - Final Listeria Monocytogenes 04/23/17 10:05 Urine For Antigen Detection Legionella Antigen - Final 04/23/17 10:05 Urine For Antigen Detection Streptococcus pneumoniae Antigen (M - Final 04/22/17 16:45 Cerebral Spinal Fluid - Lumbar Puncture Streptococcus pneumoniae Antigen (M - Final 04/18/17 08:00 Blood - Peripheral Venous Blood Culture - Final NO GROWTH AFTER 5 DAYS INCUBATION 04/18/17 08:00 Blood - Peripheral Venous Blood Culture - Final NO GROWTH AFTER 5 DAYS INCUBATION 04/20/17 11:05 Urine - Urine - Catheterized Urine Culture - Final NO GROWTH OBTAINED 04/20/17 07:55 Nasopharyngeal Swab Influenza Types A,B Antigen (SÁNCHEZ) - Final 04/20/17 07:55 Nasopharyngeal Swab - Final 04/15/17 04:30 Nasopharyngeal Swab Influenza Types A,B Antigen (SÁNCHEZ) - Final 04/15/17 04:30 Nasopharyngeal Swab - Final CXR - bilateral consolidation, R>L, right pleural effusion ASSESSMENT AND PLAN: 86yo F with PMH AFib on xarelto, CAD s/p stents, hypothyroid, Systolic CHF, dyslipidemia sent to the ER by her business communications instructor for afib with RVR -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 Plan to taper off and titrate up levophed per ICU. Ampicillin/Gentamicin, antibiotics per ID. Amiodarone/metoprolol per cardiology. Discussed with Dr. Haddad, not candidate for full anticoagulation currently. Lasix drip changed to IV BID, continue as tolerated. Condition continues to worsen with poor prognosis given progressive anasarca, poor mental status with worsening hemodynamics and multiorgan involvement and underlying very poor EF and septic shock. Will address overall goals of care with HCP and family given current critical clinical condition. Palliative care consult Discussed with Dr. Mojica, Dr. Haddad and ICU. total critical care time spent 40 min.
[2017-05-02] MEDS ORDERED: PT OWN MED DRAWER 7, Y5N ONE ×2 (17:08→21:08)
[2017-05-02] MEDS: AMINO ACIDS/PROTEIN HYDROLYS 30 ML LIQUID.PKT PO SCH (17:10)
[2017-05-02] MEDS ORDERED: MIDAZOLAM HCL 2 MG/2 ML SINGLE DOSE VIAL IVPUSH ONE (21:30)
[2017-05-03] MEDS: GENTAMICIN IVPB SCH (01:24)
[2017-05-03] MEDS: AMPICILLIN - 2 GM in SODIUM CHLORIDE 100 ML IVPB SCH ×6 (01:24→21:33)
[2017-05-03] MEDS: SODIUM CHLORIDE IVPB SCH (01:24)
[2017-05-03] MEDS: FUROSEMIDE 40 MG/4 ML INJECTABLE VIAL IVPUSH SCH ×2 (05:37→15:25)
[2017-05-03 06:36] LABS: BASO % 0.1 % (0-2.0); EOS % 0.1 % (0-4.5); HEMATOCRIT 33.4 % (32.4-45.2); HEMOGLOBIN 10.9 GM/dL (10.7-15.3); LYMPH % 1.4 % (8-40); MCH 27.7 pg (25.7-33.7); MCHC 32.6 g/dl (32.0-36.0); MEAN CELL VOLUME 84.9 fl (80-96); MEAN PLT VOLUME 8.7 fl (7.5-11.1); MONO % 1.6 % (3.8-10.2); NEUT % 96.8 % (42.8-82.8); PLATELET COUNT 207 K/MM3 (134-434); RBC 3.94 M/mm3 (3.60-5.2); RDW 18.6 % (11.6-15.6); WHITE BLOOD COUNT 8.8 K/mm3 (4.0-10.0)
[2017-05-03 06:41] LABS: INR 0.96 (0.82-1.09); PROTHROMBIN TIME (PATIENT) 10.8 SEC (9.98-11.88)
[2017-05-03 06:44] LABS: ACTIVATED PTT 35.7 SECONDS (26.9-34.4)
[2017-05-03] MEDS ORDERED: MIDAZOLAM HCL 2 MG/2 ML SINGLE DOSE VIAL IVPUSH ONE (06:44)
[2017-05-03 06:46] LABS: ARTERIAL BLD GAS O2 SATURATION 89.8 % (90-98.9); ARTERIAL BLOOD GAS BASE EXCESS 4.3 meq/l (-2-2); ARTERIAL BLOOD GAS PCO2 48.8 mmHg (35-45); ARTERIAL BLOOD GAS PO2 58.8 mmHg (68-100); ARTERIAL BLOOD GAS pH 7.39 (7.35-7.45)
[2017-05-03 06:46] LABS: ANION GAP 8 (8-16); BILIRUBIN,TOTAL 0.6 mg/dL (0.2-1.0); BLOOD UREA NITROGEN 14 mg/dL (7-18); CHLORIDE 98 mmol/L (98-107); CO2 32 mmol/L (21-32); CREATININE 0.5 mg/dL (0.55-1.02); GLUCOSE,RANDOM 96 mg/dL (74-106); MAGNESIUM 1.8 mg/dL (1.8-2.4); PHOSPHOROUS 3.1 mg/dL (2.5-4.9); POTASSIUM 3.4 mmol/L (3.5-5.1); SGOT/AST 45 U/L (15-37); SGPT/ALT 22 U/L (12-78); SODIUM 138 mmol/L (136-145); TOT PROT 3.9 g/dl (6.4-8.2)
[2017-05-03 06:47] LABS: ALK PHOS 210 U/L (45-117)
[2017-05-03] MEDS ORDERED: fentaNYL CITRATE 250 MCG/5 ML VIAL ONE ×3 (06:51→19:28)
--- NOTE | 2017-05-03 06:51 | PN ---
Progress Note, Physician Chief Complaint: ID ID Ampicillin & Gentamicin day 11 Situation remains grave Levophed Intubated - Current Medication List Current Medications: Active Medications Amino Acids (Prosource No Carb Liquid Pkt) 30 ml PO BID@0800,1730 [facility] Last Admin: 05/02/17 17:10 Dose: 30 ml Amiodarone HCl (Cordarone -) 400 mg PO DAILY [facility] Enoxaparin Sodium (Lovenox -) 65 mg SQ BID [facility] Last Admin: 05/02/17 21:10 Dose: 65 mg Furosemide (Lasix Injection -) 40 mg IVPUSH BIDLASIX [facility] Last Admin: 05/03/17 05:37 Dose: 40 mg Ampicillin Sodium 2 gm/ Sodium (Chloride) 100 mls @ 200 mls/hr IVPB Q4H-IV [facility] Last Admin: 05/03/17 05:22 Dose: 200 mls/hr Gentamicin Sulfate 30 mg/ (Sodium Chloride) 100.75 mls @ 100.75 mls/hr IVPB Q8H -IV [facility] Last Admin: 05/03/17 01:24 Dose: 100.75 mls/hr Famotidine/Sodium Chloride (Pepcid 20 Mg Premixed Ivpb -) 20 mg in 50 mls @ 100 mls/hr IVPB BID [facility] Last Admin: 05/02/17 21:09 Dose: 100 mls/hr Dobutamine HCl 250,000 mcg/ (Sodium Chloride) 250 mls @ 19.7 mls/hr IV TITR [facility] ; 5 MCG/KG/MIN PRN Reason: Protocol Last Admin: 05/02/17 00:06 Dose: 5 mcg/kg/min, 19.7 mls/hr Fentanyl 500 mcg/ Dextrose 100 mls @ 10 mls/hr IVPB TITR [facility]; 50 MCG/HR PRN Reason: Protocol Last Admin: 05/02/17 23:42 Dose: 100 mcg/hr, 20 mls/hr Phenylephrine HCl 20,000 mcg/ (Sodium Chloride) 250 mls @ 37.5 mls/hr IVPB ASDIR [facility]; 50 MCG/MIN PRN Reason: Protocol Last Admin: 05/02/17 23:45 Dose: Not Given Norepinephrine Bitartrate 8, (000 mcg/ Dextrose) 500 mls @ 18.75 mls/hr IV TITR [facility]; 5 MCG/MIN PRN Reason: Protocol Last Titration: 05/02/17 19:00 Dose: 10 mcg/min, 37.5 mls/hr Levothyroxine Sodium (Synthroid -) 75 mcg PO DAILY@0700 [facility] Last Admin: 05/02/17 06:18 Dose: 75 mcg Melatonin (Melatonin) 5 mg PO HS PRN PRN Reason: INSOMNIA Last Admin: 04/19/17 23:05 Dose: 5 mg Saliva Substitute (Mouthkote Solution -) 1 applic MM DAILY [facility] Last Admin: 05/02/17 09:04 Dose: 1 applic - Objective Vital Signs: Vital Signs Temperature 99.6 F 05/03/17 06:00 Pulse Rate 130 H 05/03/17 06:00 Respiratory Rate 18 05/03/17 06:00 Blood Pressure 100/69 05/03/17 06:00 O2 Sat by Pulse Oximetry (%) 96 05/02/17 20:56 Edema: Yes (Anasarca weeping) Labs: INR, PTT INR 0.94 (0.82-1.09) 05/02/17 05:20 Fibrinogen 252.0 mg/dL (238-498) 04/23/17 05:15 Problem List - Problems (1) Sepsis Code(s): A41.9 - SEPSIS, UNSPECIFIED ORGANISM (2) Atrial fibrillation with RVR Code(s): I48.91 - UNSPECIFIED ATRIAL FIBRILLATION (3) Bacteremia due to Gram-positive bacteria Code(s): R78.81 - BACTEREMIA (4) Listeria brain infection Code(s): A32.12 - LISTERIAL MENINGOENCEPHALITIS (5) Respiratory failure Code(s): J96.90 - RESPIRATORY FAILURE, UNSP, UNSP W HYPOXIA OR HYPERCAPNIA Assessment/Plan Microbiology 04/25/17 11:18 Urine - Urine Judge Urine Culture - Final NO GROWTH OBTAINED 04/25/17 11:15 Blood - Peripheral Venous Blood Culture - Final NO GROWTH AFTER 5 DAYS INCUBATION Laboratory Tests 05/02/17 05/02/17 05/03/17 05:20 09:25 05:05 WBC 10.4 H Pending Hgb Pending Plt Count 170 Pending Gentamicin Trough 2.0 Assessment Multiorgan failure Listeriosis with meningitis Plan Stop Gentamicin Reculture today ? secondary infection Prognosis poor Suraj CHRISTENSEN
[2017-05-03] MEDS: FENTANYL INJECTION 500 MCG in DEXTROSE 5%-WATER - 90 ML IVPB SCH ×2 (06:53→13:16)
[2017-05-03 06:54] LABS: ALLENS TEST POSITIVE
[2017-05-03] MEDS: LEVOTHYROXINE NA 75 MCG TABLET (FP) PO SCH (06:56)
[2017-05-03 06:57] LABS: ALBUMIN 0.9 g/dl (3.4-5.0)
[2017-05-03 06:58] LABS: CALCIUM 6.6 mg/dL (8.5-10.1)
[2017-05-03] MEDS ORDERED: PT OWN MED DRAWER 7, Y5N ONE ×3 (09:04→21:33)
[2017-05-03] MEDS ORDERED: POTASSIUM CHLORIDE ORAL LIQUID 20 MEQ/15 ML NGT ONE (09:30)
[2017-05-03] MEDS: AMINO ACIDS/PROTEIN HYDROLYS 30 ML LIQUID.PKT PO SCH ×2 (09:45→16:48)
[2017-05-03] MEDS: FAMOTIDINE 20 MG/50 ML IVPB 20 MG/50 ML MG IVPB SCH ×2 (09:45→21:31)
[2017-05-03] MEDS: AMIODARONE HCL 200 MG TABLET (FP) PO SCH ×2 (09:46→10:00)
[2017-05-03] MEDS: LYTES/YERBA SANTA 240 ML BOTTLE MM SCH (09:46)
[2017-05-03] MEDS: ENOXAPARIN NA (PORCINE) 80 MG/0.8 ML DISP.SYRIN SQ SCH ×2 (09:47→21:28)
[2017-05-03] MEDS ORDERED: MAGNESIUM SULF 50% (8.12 MEQ/2 ML-1 GM VIAL) IVPB ONE (10:45)
[2017-05-03] MEDS ORDERED: MAGNESIUM SULFATE IN WATER 2 GM/50 ML IVPB IVPB ONE (12:00)
--- NOTE | 2017-05-03 12:22 | PN ---
Teaching Attending Note Name of Resident: Yohannes Pemberton ATTENDING PHYSICIAN STATEMENT I saw and evaluated the patient. I reviewed the resident's note and discussed the case with the resident. I agree with the resident's findings and plan as documented. SUBJECTIVE: Pt seen and examined in the ICU. Remains intubated, sedated on levophed gtt. Off phenylephrine and dobutamine gtts. No fevers recorded. CVP 10. OBJECTIVE: Last Vital Signs Temp Pulse Resp BP Pulse Ox 99.9 F H 47 L 21 100/74 96 05/03/17 10:00 05/03/17 10:00 05/03/17 11:54 05/03/17 10:00 05/02/17 20:56 Intake & Output 04/30/17 05/01/17 05/02/17 05/03/17 23:59 23:59 23:59 23:59 Intake Total 2569.4 1660 2807.7 1000 Output Total 2400 2950 1300 275 Balance 169.4 -1290 1507.7 725 Weight 65.68 kg 64.773 kg 65.907 kg 65.8 kg Gen: intubated, sedated Heart: RRR Lung: bilateral rhonchi Abd: soft, nontender Ext: + edema, + anasarca CBC, BMP 05/03/17 05:05 05/03/17 05:05 Active Medications Albumin Human (Albumin Human 25%) 25 gm IVPB Q6H [facility] Stop: 05/04/17 07:01 Amino Acids (Prosource No Carb Liquid Pkt) 30 ml PO BID@0800,1730 [facility] Last Admin: 05/03/17 09:45 Dose: 30 ml Amiodarone HCl (Cordarone -) 400 mg PO DAILY [facility] Last Admin: 05/03/17 10:00 Dose: 400 mg Enoxaparin Sodium (Lovenox -) 65 mg SQ BID [facility]ON Last Admin: 05/03/17 09:47 Dose: 65 mg Furosemide (Lasix Injection -) 40 mg IVPUSH BIDLASIX [facility] Last Admin: 05/03/17 05:37 Dose: 40 mg Ampicillin Sodium 2 gm/ Sodium (Chloride) 100 mls @ 200 mls/hr IVPB Q4H-IV [facility] Last Admin: 05/03/17 09:45 Dose: 200 mls/hr Famotidine/Sodium Chloride (Pepcid 20 Mg Premixed Ivpb -) 20 mg in 50 mls @ 100 mls/hr IVPB BID [facility]ON Last Admin: 05/03/17 09:45 Dose: 100 mls/hr Dobutamine HCl 250,000 mcg/ (Sodium Chloride) 250 mls @ 19.7 mls/hr IV TITR SIMON ; 5 MCG/KG/MIN PRN Reason: Protocol Last Titration: 05/02/17 19:00 Dose: 0 mcg/kg/min, 0 mls/hr Fentanyl 500 mcg/ Dextrose 100 mls @ 10 mls/hr IVPB TITR SIMON; 50 MCG/HR PRN Reason: Protocol Last Admin: 05/03/17 06:53 Dose: 100 mcg/hr, 20 mls/hr Phenylephrine HCl 20,000 mcg/ (Sodium Chloride) 250 mls @ 37.5 mls/hr IVPB ASDIR SIMON; 50 MCG/MIN PRN Reason: Protocol Last Admin: 05/02/17 23:45 Dose: Not Given Norepinephrine Bitartrate 8, (000 mcg/ Dextrose) 500 mls @ 18.75 mls/hr IV TITR SIMON; 5 MCG/MIN PRN Reason: Protocol Last Titration: 05/02/17 19:00 Dose: 10 mcg/min, 37.5 mls/hr MAGNESIUM SULFATE IN WATER (Magnesium Sulf 2 G/50 Ml Bag) 2 gm in 50 mls @ 50 mls/hr IVPB ONCE ONE Stop: 05/03/17 12:59 Levothyroxine Sodium (Synthroid -) 75 mcg PO DAILY@0700 [facility] Last Admin: 05/03/17 06:56 Dose: 75 mcg Melatonin (Melatonin) 5 mg PO HS PRN PRN Reason: INSOMNIA Last Admin: 04/19/17 23:05 Dose: 5 mg Saliva Substitute (Mouthkote Solution -) 1 applic MM DAILY [facility] Last Admin: 05/03/17 09:46 Dose: 1 applic ASSESSMENT AND PLAN: Acute Hypoxic Respiratory Failure Listeria Meningitis/Bacteremia Acute Colitis Septic vs Cardiogenic Shock Atrial Fibrillation with RVR Acute Kidney Injury improving Lactic Acidosis resolved Elevated LFTs resolved 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
--- NOTE | 2017-05-03 12:24 | PN ---
Progress Note, Physician History of Present Illness: "Patient is an 86 year old female with a significant past medical history of CAD w/ stents, afib on xarelto, HFpEF (EF 67.8%, 2016) and HLD who presents to the ED for tachycardia. Patient was seen in cardiology clinic today and was found on EKG to be in afib with RVR with a rate of 160. She was subsequently sent to ER for management. Patient currently has no complaints or pain while in the ED. Denies ever having CP/SOB/palpitations. Denies F/C/N/V/D. Reports compliance with all of her medications. Patient presented to the office Off amiodarone and with reduced dose of bb. 2 weeks h/o of decompensated chf rx with increased dose of lasix. yesterday vissiting nurse noted pulse 160's, ems called, confirmed, patient refused admission to hospital yesterday. Today in my office she presented asymptomatic with +3 lower extremity edema and AF with RVR 167 bpm. PMH ASHD s/p PTCA SANNA mLAD PTCA D2 2007 Atrial fibrillation HHD HTN Positive MIBI in the past refused repeated c. cath - Current Medication List Current Medications: Active Medications Albumin Human (Albumin Human 25%) 25 gm IVPB Q6H [facility] Stop: 05/04/17 07:01 Amino Acids (Prosource No Carb Liquid Pkt) 30 ml PO BID@0800,1730 [facility] Last Admin: 05/03/17 09:45 Dose: 30 ml Amiodarone HCl (Cordarone -) 400 mg PO DAILY [facility] Last Admin: 05/03/17 10:00 Dose: 400 mg Enoxaparin Sodium (Lovenox -) 65 mg SQ BID [facility] Last Admin: 05/03/17 09:47 Dose: 65 mg Furosemide (Lasix Injection -) 40 mg IVPUSH BIDLASIX [facility] Last Admin: 05/03/17 05:37 Dose: 40 mg Ampicillin Sodium 2 gm/ Sodium (Chloride) 100 mls @ 200 mls/hr IVPB Q4H-IV [facility] Last Admin: 05/03/17 09:45 Dose: 200 mls/hr Famotidine/Sodium Chloride (Pepcid 20 Mg Premixed Ivpb -) 20 mg in 50 mls @ 100 mls/hr IVPB BID [facility] Last Admin: 05/03/17 09:45 Dose: 100 mls/hr Dobutamine HCl 250,000 mcg/ (Sodium Chloride) 250 mls @ 19.7 mls/hr IV TITR SIMON ; 5 MCG/KG/MIN PRN Reason: Protocol Last Titration: 05/02/17 19:00 Dose: 0 mcg/kg/min, 0 mls/hr Fentanyl 500 mcg/ Dextrose 100 mls @ 10 mls/hr IVPB TITR SIMON; 50 MCG/HR PRN Reason: Protocol Last Admin: 05/03/17 06:53 Dose: 100 mcg/hr, 20 mls/hr Phenylephrine HCl 20,000 mcg/ (Sodium Chloride) 250 mls @ 37.5 mls/hr IVPB ASDIR SIMON; 50 MCG/MIN PRN Reason: Protocol Last Admin: 05/02/17 23:45 Dose: Not Given Norepinephrine Bitartrate 8, (000 mcg/ Dextrose) 500 mls @ 18.75 mls/hr IV TITR SIMON; 5 MCG/MIN PRN Reason: Protocol Last Titration: 05/02/17 19:00 Dose: 10 mcg/min, 37.5 mls/hr MAGNESIUM SULFATE IN WATER (Magnesium Sulf 2 G/50 Ml Bag) 2 gm in 50 mls @ 50 mls/hr IVPB ONCE ONE Stop: 05/03/17 12:59 Levothyroxine Sodium (Synthroid -) 75 mcg PO DAILY@0700 [facility] Last Admin: 05/03/17 06:56 Dose: 75 mcg Melatonin (Melatonin) 5 mg PO HS PRN PRN Reason: INSOMNIA Last Admin: 04/19/17 23:05 Dose: 5 mg Saliva Substitute (Mouthkote Solution -) 1 applic MM DAILY [facility] Last Admin: 05/03/17 09:46 Dose: 1 applic - Objective Vital Signs: Vital Signs Temperature 99.9 F H 05/03/17 10:00 Pulse Rate 47 L 05/03/17 10:00 Respiratory Rate 21 05/03/17 11:54 Blood Pressure 100/74 05/03/17 10:00 O2 Sat by Pulse Oximetry (%) 96 05/02/17 20:56 Eyes: Yes: WNL, Conjunctiva Clear, EOM Intact HENT: Yes: WNL, Atraumatic, Normocephalic Neck: Yes: WNL, Supple, Trachea Midline Cardiovascular: Yes: WNL, Regular Rate and Rhythm Respiratory: Yes: Diminished, Intubated, Mechanically Ventilated Gastrointestinal: Yes: WNL, Normal Bowel Sounds Genitourinary: Yes: WNL Musculoskeletal: Yes: WNL Extremities: Yes: WNL Edema: Yes Edema: LLE: 2+, RLE: 2+ Integumentary: Yes: WNL Neurological: Yes: WNL, Alert, Oriented ...Motor Strength: WNL Psychiatric: Yes: WNL Labs: CBC, BMP 05/03/17 05:05 05/03/17 05:05 INR, PTT INR 0.96 (0.82-1.09) 05/03/17 05:05 Fibrinogen 252.0 mg/dL (238-498) 04/23/17 05:15 Problem List - Problems (1) Acute on chronic systolic and diastolic heart failure, NYHA class 2 Code(s): I50.43 - ACUTE ON CHRONIC COMBINED SYSTOLIC AND DIASTOLIC HRT FAIL (2) CAD (coronary artery disease) Code(s): I25.10 - ATHSCL HEART DISEASE OF [place] CORONARY ARTERY W/O ANG PCTRS (3) Dizziness Code(s): R42 - DIZZINESS AND GIDDINESS (4) Afib Code(s): I48.91 - UNSPECIFIED ATRIAL FIBRILLATION (5) CHF (congestive heart failure) Code(s): I50.9 - HEART FAILURE, UNSPECIFIED Assessment/Plan Problems (1) Atrial fibrillation with RVR Assessment/Plan: . metoprolol held due to hypotension. On amiodarone PO loading ; decreased to 400 mb daily. May consider anticoagulation (e.g. IV heparin). Code(s): I48.91 - UNSPECIFIED ATRIAL FIBRILLATION (2) CAD (coronary artery disease) Code(s): I25.10 - ATHSCL HEART DISEASE OF [place] CORONARY ARTERY W/O ANG PCTRS (3) Hypothyroid Assessment/Plan: elevated TSH; free T4 is also mildly elevated. Following thyroid function is especially important when on amiodarone (dose to be reduced to 400 mg daily for a week, with plan to maintain on 100 mg daily). Code(s): E03.9 - HYPOTHYROIDISM, UNSPECIFIED (4) Renal insufficiency Assessment/Plan: f/u carefully (on furosemide for acute CHF); avoid excessive dehydration. Code(s): N28.9 - DISORDER OF KIDNEY AND URETER, UNSPECIFIED (5) Acute respiratory failure Assessment/Plan: on antibiotics for septic shock steroids, Mechanical vent management, O2 per produce weigher.. Code(s): J96.00 - ACUTE RESPIRATORY FAILURE, UNSP W HYPOXIA OR HYPERCAPNIA (6) Septic shock Assessment/Plan: remains febrile; Listeria meningitis. Antibiotics per ID. Fluids; monitor Is and Os, daily weight, BUN?cr, electrolytes. On dubutamine LVEF is severely reduced, (and pt known to have significant MR)- -> dobuamine.for attempt to improve cardiac output (dose lowered due to tachycardia; vasodilatory effcts may be predominate at the 5 ucg presently being given). On phenylephrine.. Code(s): A41.9 - SEPSIS, UNSPECIFIED ORGANISM; R65.21 - SEVERE SEPSIS WITH SEPTIC SHOCK (7) CHF (congestive heart failure) Assessment/Plan: Severe systolic LV dysfunction, with severe pulmonary HTN. On dual pressors (dobutamine and phenylephrine). Tachycardic despite being on low-dose dobutamine (with likely vasodilatation). s. Code(s): I50.9 - HEART FAILURE, UNSPECIFIED (8) Hypoalbuminemia Code(s): E88.09 - [facility] DISORDERS OF PLASMA-PROTEIN METABOLISM, NEC cc time spent 36 min
[2017-05-03] MEDS: ALBUMIN HUMAN 25% 12.5 GM/50 ML VIAL IVPB SCH ×2 (13:43→18:19)
--- NOTE | 2017-05-03 14:38 | PN ---
Progress Note, Physician History of Present Illness: patient seen and examined at bedside still unable to get a hold of family for goals of care discussion - Current Medication List Current Medications: Active Medications Albumin Human (Albumin Human 25%) 25 gm IVPB Q6H [facility] Stop: 05/04/17 07:01 Last Admin: 05/03/17 13:43 Dose: 25 gm Amino Acids (Prosource No Carb Liquid Pkt) 30 ml PO BID@0800,1730 [facility] Last Admin: 05/03/17 09:45 Dose: 30 ml Amiodarone HCl (Cordarone -) 400 mg PO DAILY [facility] Last Admin: 05/03/17 10:00 Dose: 400 mg Enoxaparin Sodium (Lovenox -) 65 mg SQ BID [facility] Last Admin: 05/03/17 09:47 Dose: 65 mg Furosemide (Lasix Injection -) 40 mg IVPUSH BIDLASIX [facility] Last Admin: 05/03/17 05:37 Dose: 40 mg Ampicillin Sodium 2 gm/ Sodium (Chloride) 100 mls @ 200 mls/hr IVPB Q4H-IV [facility] Last Admin: 05/03/17 13:41 Dose: 200 mls/hr Famotidine/Sodium Chloride (Pepcid 20 Mg Premixed Ivpb -) 20 mg in 50 mls @ 100 mls/hr IVPB BID [facility] Last Admin: 05/03/17 09:45 Dose: 100 mls/hr Dobutamine HCl 250,000 mcg/ (Sodium Chloride) 250 mls @ 19.7 mls/hr IV TITR SIMON ; 5 MCG/KG/MIN PRN Reason: Protocol Last Titration: 05/02/17 19:00 Dose: 0 mcg/kg/min, 0 mls/hr Fentanyl 500 mcg/ Dextrose 100 mls @ 10 mls/hr IVPB TITR SIMON; 50 MCG/HR PRN Reason: Protocol Last Admin: 05/03/17 13:16 Dose: 100 mcg/hr, 20 mls/hr Norepinephrine Bitartrate 8, (000 mcg/ Dextrose) 500 mls @ 18.75 mls/hr IV TITR SIMON; 5 MCG/MIN PRN Reason: Protocol Last Titration: 05/02/17 19:00 Dose: 10 mcg/min, 37.5 mls/hr Levothyroxine Sodium (Synthroid -) 75 mcg PO DAILY@0700 [facility] Last Admin: 05/03/17 06:56 Dose: 75 mcg Melatonin (Melatonin) 5 mg PO HS PRN PRN Reason: INSOMNIA Last Admin: 04/19/17 23:05 Dose: 5 mg Saliva Substitute (Mouthkote Solution -) 1 applic MM DAILY [facility] Last Admin: 05/03/17 09:46 Dose: 1 applic - Objective Vital Signs: Vital Signs Temperature 99.9 F H 05/03/17 10:00 Pulse Rate 47 L 05/03/17 10:00 Respiratory Rate 16 05/03/17 14:10 Blood Pressure 100/74 05/03/17 10:00 O2 Sat by Pulse Oximetry (%) 96 05/02/17 20:56 Constitutional: Yes: No Distress, Calm, intubated and sedated. follows minimal commands HENT: Yes: Atraumatic Neck: Yes: Supple, Cardiovascular: Yes: Tachycardic Respiratory: Yes: Rhinchi bilaterally Gastrointestinal: soft nt/nd Extremities: Yes: +edema Labs: CBC, BMP 05/03/17 05:05 05/03/17 05:05 INR, PTT INR 0.96 (0.82-1.09) 05/03/17 05:05 Fibrinogen 252.0 mg/dL (238-498) 04/23/17 05:15 Assessment/Plan 86F with multiple medical problems now intubated and sedated with listeria meningitis NEURO intubated and sedated follow minimal commands CV patient remains on levophed remains tachycardic continue lovenox for A fib Cardiology on board continue aniodarone continue lasix for CHF Start albumin 25gm q6h for 4 doses. 2 doses with lasix RESP continue ventilatory support wean oxygen GI transaminitis-trend LFTs Renal continue to trend BUN/Cr ID:listeria meningitis Gentamicin stopped per ID continue ampicillin FEN/GI replete potassium and magnesium PPX -Continue Lovenox 65mg BID ICU care Palliative car consult CCTime 35min
--- NOTE | 2017-05-03 15:35 | PN ---
<Maya Berger - Last Filed: 05/03/17 15:00> Physical Exam: SUBJECTIVE: Patient seen and examined. Pt remains intubated. Tube feeding resumed. Pt remains afebrile, tachycardic and intermittently tachypneic. OBJECTIVE: Vital Signs Period Temp Pulse Resp BP Sys/Gandara Pulse Ox Last 24 Hr 98.3 F-99.9 F 47-133 13-30 85-101/64-78 96 GENERAL: Pt is intubated, resting comfortably. Withdraws to pain. LUNGS: cornelius coarse rhonchi. HEART: Tachycardic, irregular, +S1/S2. ABDOMEN: Soft, nontender, nondistended. EXTREMITIES: Anasarca. + pulses. SKIN: Warm, dry, normal turgor, no rashes or lesions noted Laboratory Results - last 24 hr 05/03/17 05/03/17 05/03/17 05:05 05:05 05:05 WBC 8.8 RBC 3.94 Hgb 10.9 Hct 33.4 MCV 84.9 MCH 27.7 MCHC 32.6 RDW 18.6 H Plt Count 207 D MPV 8.7 Neutrophils % 96.8 H Lymphocytes % 1.4 L Monocytes % 1.6 L Eosinophils % 0.1 Basophils % 0.1 PT with INR 10.80 INR 0.96 PTT (Actin FS) 35.7 H Puncture Site ABG pH ABG pCO2 at Pt Temp ABG pO2 at Pt Temp ABG HCO3 ABG O2 Sat (Measured) ABG O2 Content ABG Base Excess José Miguel Test Oxygen Flow Rate Vent Mode Vent Rate PEEP Pressure Support Vent Sodium 138 Potassium 3.4 L Chloride 98 Carbon Dioxide 32 Anion Gap 8 BUN 14 Creatinine 0.5 L Creat Clearance w eGFR > 60 Random Glucose 96 Calcium 6.6 L* Phosphorus 3.1 Magnesium 1.8 Total Bilirubin 0.6 D AST 45 H ALT 22 Alkaline Phosphatase 210 H Total Protein 3.9 L Albumin 0.9 L 05/03/17 06:00 WBC RBC Hgb Hct MCV MCH MCHC RDW Plt Count MPV Neutrophils % Lymphocytes % Monocytes % Eosinophils % Basophils % PT with INR INR PTT (Actin FS) Puncture Site Right radial ABG pH 7.39 ABG pCO2 at Pt Temp 48.8 H ABG pO2 at Pt Temp 58.8 L ABG HCO3 29.2 H ABG O2 Sat (Measured) 89.8 L ABG O2 Content 10.6 L ABG Base Excess 4.3 H José Miguel Test Positive Oxygen Flow Rate 60% Vent Mode A/c Vent Rate 12 PEEP 5.0 Pressure Support Vent 350 Sodium Potassium Chloride Carbon Dioxide Anion Gap BUN Creatinine Creat Clearance w eGFR Random Glucose Calcium Phosphorus Magnesium Total Bilirubin AST ALT Alkaline Phosphatase Total Protein Albumin Active Medications Generic Name Dose Route Start Last Admin Trade Name Freq PRN Reason Stop Dose Admin Albumin Human 25 gm 05/03/17 13:00 05/03/17 13:43 Albumin Human 25% IVPB 05/04/17 07:01 25 gm Q6H [facility]ON Administration Amino Acids 30 ml 05/02/17 17:30 05/03/17 09:45 Prosource No Carb Liquid Pkt PO 30 ml BID@0800,1730 [facility] Administration Amiodarone HCl 400 mg 05/02/17 10:00 05/03/17 10:00 Cordarone - PO 400 mg DAILY [facility] Administration Enoxaparin Sodium 65 mg 05/02/17 10:00 05/03/17 09:47 Lovenox - SQ 65 mg BID [facility] Administration Furosemide 40 mg 05/01/17 14:00 05/03/17 05:37 Lasix Injection - IVPUSH 40 mg BIDLASIX [facility] Administration Ampicillin Sodium 2 gm/ Sodium 100 mls @ 200 mls/hr 04/22/17 12:00 05/03/17 13:41 Chloride IVPB 200 mls/hr Q4H-IV [facility] Administration Famotidine/Sodium Chloride 20 mg in 50 mls @ 100 mls/hr 04/26/17 22:00 09:45 Pepcid 20 Mg Premixed Ivpb - IVPB 100 mls/hr BID [facility] Administration Dobutamine HCl 250,000 mcg/ 250 mls @ 19.7 mls/hr 04/30/17 08:15 05/02/17 19: 00 Sodium Chloride IV 0 mcg/kg/min TITR SIMON 0 mls/hr Protocol Titration 5 MCG/KG/MIN Fentanyl 500 mcg/ Dextrose 100 mls @ 10 mls/hr 04/30/17 08:15 05/03/17 13:16 IVPB 100 mcg/hr TITR [facility]ON 20 mls/hr Protocol Administration 50 MCG/HR Norepinephrine Bitartrate 8, 500 mls @ 18.75 mls/hr 05/02/17 11:15 05/02/17 19:00 000 mcg/ Dextrose IV 10 mcg/min TITR SIMON 37.5 mls/hr Protocol Titration 5 MCG/MIN Levothyroxine Sodium 75 mcg 04/15/17 07:00 05/03/17 06:56 Synthroid - PO 75 mcg DAILY@0700 [facility] Administration Melatonin 5 mg 04/18/17 16:54 04/19/17 23:05 Melatonin PO 5 mg HS PRN Administration INSOMNIA Saliva Substitute 1 applic 04/20/17 17:15 05/03/17 09:46 Mouthkote Solution - MM 1 applic DAILY [facility] Administration IMAGIN05/02/17 CXR -> no PTX. Cornelius infiltrates R > L. R pleural effusion noted. 05/03/17 CXR -> slightly worse. Progressive pulmonary and pleural changes. ASSESSMENT/PLAN: 86F with PMH of afib on Xarelto, CAD s/p stents (2009), systolic CHF, hld, hypothyroidism, sent to ER by her gold layer for 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 # septic shock 2/2 Listeria bacteremia and Listeria Meningitis - afebrile - on norepinephrine - Day 11 on IV Ampicillin. Gentamicin D/Awais per ID (Dr. Ruelas). # acute hypoxic respiratory failure - from septic shock, also likely 2/2 systolic CHF exacerbation from volume resuscitation - CXR's reveal progressively worsening ARDS vs PNA - continue vent, not a candidate for weaning at this time due to oxygen requirements - continue fentanyl drip # afib with RVR - continues to have bursts of RVR - continue home med of Xarelto - Amiodarone reduced to daily # acute systolic CHF exacerbation - albumin today followed by Lasix - strict I&O's - monitor daily wts, weight stable from yesterday - pt remains anasarcic # hypothyroidism - continue home med of Synthroid # electrolyte abnormalities - hypomagnesemia repleted with Mg Sulfate 2 g IVPB - hypokalemia repleted with KCl 40meq via NGT # FEN - Fluids: held for current diuresis - Electrolytes: corrected Calcium wnl, continue to monitor - Nutrition: Osmolite 1.2 @ 20 ml/hr, goal rate 52 ml/hr for TV 1250ml # Prophylaxis - DVT ppx with Lovenox - GI ppx with Pepcid - deconditioning ppx with PT # dispo - Prognosis is poor. Continued discussions regarding goals of care attempted with family, Celestina (daughter/proxy) cannot be reached. Visit type - Emergency Visit Emergency Visit: Yes ED Registration Date: 04/14/17 Care time: The patient presented to the Emergency Department on the above date and was hospitalized for further evaluation of their emergent condition. - New Patient This patient is new to me today: No - Critical Care Critical Care patient: Yes Total Critical Care Time (in minutes): 38 Critical Care Statement: The care of this patient involved high complexity decision making to prevent further life threatening deterioration of the patient 's condition and/or to evaluate & treat vital organ system(s) failure or risk of failure. <Carmita Umaña - Last Filed: 05/03/17 18:45> Physical Exam: Patient seen and examined with resident. Continues to be sedated and intubated, looks more comfortable today but worsening anasarca. O/E: General: sedated, intubated, anasarcic in bed CVS:S1S2 irregular, tachycardic Abdomen: soft, distended, No grimacing deep palpation. Extremities: anasarca Home Medication List Medication Instructions Recorded Confirmed Type Lisinopril [Zestril] 2.5 mg PO DAILY 03/13/16 04/14/17 History Levothyroxine [Synthroid -] 75 mcg PO DAILY@0700 04/14/17 04/14/17 History Metoprolol Tartrate 25 mg PO DAILY 04/18/17 04/18/17 History Omeprazole 40 mg PO DAILY 04/18/17 04/18/17 History Potassium Citrate [Potassium 20 meq PO DAILY 04/18/17 04/18/17 History Citrate ER] Active Medications Generic Name Dose Route Start Last Admin Trade Name Freq PRN Reason Stop Dose Admin Albumin Human 25 gm 05/03/17 13:00 05/03/17 18:19 Albumin Human 25% IVPB 05/04/17 07:01 25 gm Q6H SIMON Administration Amino Acids 30 ml 05/02/17 17:30 05/03/17 16:48 Prosource No Carb Liquid Pkt PO 30 ml BID@0800,1730 [facility] Administration Amiodarone HCl 400 mg 05/02/17 10:00 05/03/17 10:00 Cordarone - PO 400 mg DAILY [facility] Administration Enoxaparin Sodium 65 mg 05/02/17 10:00 05/03/17 09:47 Lovenox - SQ 65 mg BID [facility] Administration Furosemide 40 mg 05/01/17 14:00 05/03/17 15:25 Lasix Injection - IVPUSH 40 mg BIDLASIX [facility]ON Administration Ampicillin Sodium 2 gm/ Sodium 100 mls @ 200 mls/hr 04/22/17 12:00 05/03/17 17:09 Chloride IVPB 200 mls/hr Q4H-IV [facility] Administration Famotidine/Sodium Chloride 20 mg in 50 mls @ 100 mls/hr 04/26/17 22:00 09:45 Pepcid 20 Mg Premixed Ivpb - IVPB 100 mls/hr BID [facility] Administration Dobutamine HCl 250,000 mcg/ 250 mls @ 19.7 mls/hr 04/30/17 08:15 05/02/17 19: 00 Sodium Chloride IV 0 mcg/kg/min TITR SIMON 0 mls/hr Protocol Titration 5 MCG/KG/MIN Fentanyl 500 mcg/ Dextrose 100 mls @ 10 mls/hr 04/30/17 08:15 05/03/17 13:16 IVPB 100 mcg/hr TITR [facility]ON 20 mls/hr Protocol Administration 50 MCG/HR Norepinephrine Bitartrate 8, 500 mls @ 18.75 mls/hr 05/02/17 11:15 05/02/17 19:00 000 mcg/ Dextrose IV 10 mcg/min TITR SIMON 37.5 mls/hr Protocol Titration 5 MCG/MIN Levothyroxine Sodium 75 mcg 04/15/17 07:00 05/03/17 06:56 Synthroid - PO 75 mcg DAILY@0700 [facility] Administration Melatonin 5 mg 04/18/17 16:54 04/19/17 23:05 Melatonin PO 5 mg HS PRN Administration INSOMNIA Saliva Substitute 1 applic 04/20/17 17:15 05/03/17 09:46 Mouthkote Solution - MM 1 applic DAILY [facility] Administration Assessment/Plan: 86yo F with PMH AFib on xarelto, CAD s/p stents, hypothyroid, Systolic CHF, dyslipidemia sent to the ER by her gold layer for afib with RVR -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 -Acute hypoxic respiratory failure from septic shock and likely systolic HF exacerbation from volume resuscitation -Lactic acidosis -Afib with RVR -Acute Systolic Heart failure exacerbation -Coagulopathy, elevated INR, suspect from hepatic congestion/amiodarone -Abnormal LFTs, likely congestive hepatopathy -Hypothyoridism -SELMA, 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 Unable to wean currently. CXR continuest to worsen. worsening anasarca. Critical care/ID input appreciated. Seen by palliative care, will continue to address goals of care and HCP. Correction to residents noted: patient currently not on xarelto given worsening coagulopathy on the same earlier. Overal critical with multiorgan involvement, unlikely candidate for anti- coagulation at this point. Will defer to cardiology. replete Lytes prn. Dispo ICU. Total critical care time spent 35 min.
--- NOTE | 2017-05-03 20:17 | PN ---
Progress Note (short form) - Note Progress Note: NEUROLOGY FOLLOW-UP: Events reviewed. Off propofol but still on Fentanyl drip. Opens eyes to sternal pressure, head mov'ts. Semipurposeful mov'ts of both arms to sternal pressure. + shallow spontaneous respirations Right beating nystagmus on Doll's head with full EOM's Corneals reduced but present. Opens eyes to pinch both arms. IMP: Remains poorly responsive after Rx for Listeria meningitis. SUGGEST: Taper Fentanyl and observe. CT scan of head (C-). Thank you very much, Ish Livingston MD
[2017-05-04] MEDS ORDERED: fentaNYL CITRATE 250 MCG/5 ML VIAL ONE ×5 (00:24→22:46)
[2017-05-04] MEDS: ALBUMIN HUMAN 25% 12.5 GM/50 ML VIAL IVPB SCH ×2 (01:17→06:26)
[2017-05-04] MEDS: AMPICILLIN - 2 GM in SODIUM CHLORIDE 100 ML IVPB SCH ×6 (01:18→22:43)
[2017-05-04] MEDS: LEVOTHYROXINE NA 75 MCG TABLET (FP) PO SCH (06:26)
[2017-05-04] MEDS: FUROSEMIDE 40 MG/4 ML INJECTABLE VIAL IVPUSH SCH ×2 (06:26→14:36)
[2017-05-04 06:47] LABS: BASO % 0.3 % (0-2.0); EOS % 0.1 % (0-4.5); HEMATOCRIT 30.5 % (32.4-45.2); HEMOGLOBIN 9.7 GM/dL (10.7-15.3); LYMPH % 1.6 % (8-40); MCH 27.4 pg (25.7-33.7); MCHC 31.9 g/dl (32.0-36.0); MEAN CELL VOLUME 85.9 fl (80-96); MEAN PLT VOLUME 9.1 fl (7.5-11.1); MONO % 1.7 % (3.8-10.2); NEUT % 96.3 % (42.8-82.8); PLATELET COUNT 192 K/MM3 (134-434); RBC 3.55 M/mm3 (3.60-5.2); RDW 18.6 % (11.6-15.6); WHITE BLOOD COUNT 5.7 K/mm3 (4.0-10.0)
--- NOTE | 2017-05-04 06:49 | PN ---
Progress Note, Physician Chief Complaint: ID Day planned treatment for meningitis wit Listeria Pressor support on 100%FIO2 Neurology note seen - Current Medication List Current Medications: Active Medications Albumin Human (Albumin Human 25%) 25 gm IVPB Q6H [facility] Stop: 05/04/17 07:01 Last Admin: 05/04/17 06:26 Dose: 25 gm Amino Acids (Prosource No Carb Liquid Pkt) 30 ml PO BID@0800,1730 [facility] Last Admin: 05/03/17 16:48 Dose: 30 ml Amiodarone HCl (Cordarone -) 400 mg PO DAILY [facility] Last Admin: 05/03/17 10:00 Dose: 400 mg Enoxaparin Sodium (Lovenox -) 65 mg SQ BID [facility] Last Admin: 05/03/17 21:28 Dose: 65 mg Furosemide (Lasix Injection -) 40 mg IVPUSH BIDLASIX [facility] Last Admin: 05/04/17 06:26 Dose: 40 mg Ampicillin Sodium 2 gm/ Sodium (Chloride) 100 mls @ 200 mls/hr IVPB Q4H-IV [facility] Last Admin: 05/04/17 06:21 Dose: 200 mls/hr Famotidine/Sodium Chloride (Pepcid 20 Mg Premixed Ivpb -) 20 mg in 50 mls @ 100 mls/hr IVPB BID [facility] Last Admin: 05/03/17 21:31 Dose: 100 mls/hr Dobutamine HCl 250,000 mcg/ (Sodium Chloride) 250 mls @ 19.7 mls/hr IV TITR [facility] ; 5 MCG/KG/MIN PRN Reason: Protocol Last Titration: 05/02/17 19:00 Dose: 0 mcg/kg/min, 0 mls/hr Fentanyl 500 mcg/ Dextrose 100 mls @ 10 mls/hr IVPB TITR [facility]; 50 MCG/HR PRN Reason: Protocol Last Admin: 05/03/17 13:16 Dose: 100 mcg/hr, 20 mls/hr Norepinephrine Bitartrate 8, (000 mcg/ Dextrose) 500 mls @ 18.75 mls/hr IV TITR [facility]; 5 MCG/MIN PRN Reason: Protocol Last Titration: 05/02/17 19:00 Dose: 10 mcg/min, 37.5 mls/hr Levothyroxine Sodium (Synthroid -) 75 mcg PO DAILY@0700 [facility] Last Admin: 05/04/17 06:26 Dose: 75 mcg Melatonin (Melatonin) 5 mg PO HS PRN PRN Reason: INSOMNIA Last Admin: 04/19/17 23:05 Dose: 5 mg Saliva Substitute (Mouthkote Solution -) 1 applic MM DAILY [facility] Last Admin: 05/03/17 09:46 Dose: 1 applic - Objective Vital Signs: Vital Signs Temperature 99.2 F 05/04/17 06:00 Pulse Rate 129 H 05/04/17 06:00 Respiratory Rate 16 05/04/17 06:00 Blood Pressure 119/82 05/04/17 06:00 O2 Sat by Pulse Oximetry (%) 96 05/02/17 20:56 Neck: Yes: Other (Central line) Cardiovascular: Yes: S1, S2 Respiratory: Yes: WNL, Regular, CTA Bilaterally Gastrointestinal: Yes: WNL, Normal Bowel Sounds, Soft. 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 - LISTERIAL MENINGOENCEPHALITIS (5) Respiratory failure Code(s): J96.90 - RESPIRATORY FAILURE, UNSP, UNSP W HYPOXIA OR HYPERCAPNIA Assessment/Plan Microbiology 04/25/17 11:18 Urine - Urine Judge Urine Culture - Final NO GROWTH OBTAINED Laboratory Tests 05/03/17 05/03/17 05/04/17 05:05 05:05 05:00 WBC 8.8 Pending Hgb 10.9 Pending Plt Count 207 D Pending BUN 14 Creatinine 0.5 L Creat Clearance w eGFR > 60 AST 45 H ALT 22 Alkaline Phosphatase 210 H Albumin 0.9 L 05/04/17 05:00 WBC Hgb Plt Count BUN Pending Creatinine Creat Clearance w eGFR AST ALT Alkaline Phosphatase Albumin Assessment Multiorgan failure Congestive heart failure Listeria bacteremia with meningitis completing treatment soon Plan Repeat screening cultures for secondary infection thus far negative Ampicillin day 11 now Prognosis remains poor Suraj CHRISTENSEN
[2017-05-04 07:10] LABS: ALBUMIN 2.4 g/dl (3.4-5.0); ANION GAP 7 (8-16); BLOOD UREA NITROGEN 13 mg/dL (7-18); CHLORIDE 97 mmol/L (98-107); CO2 32 mmol/L (21-32); GLUCOSE,RANDOM 116 mg/dL (74-106); POTASSIUM 3.1 mmol/L (3.5-5.1); SODIUM 136 mmol/L (136-145)
[2017-05-04 07:13] LABS: INR 1.04 (0.82-1.09); PROTHROMBIN TIME (PATIENT) 11.8 SEC (9.98-11.88)
--- NOTE | 2017-05-04 07:14 | PN ---
Progress Note, Physician History of Present Illness: 24 HR EVENTS Patient remains sedated, intubated. On norepi. Phenylephrine and dobutamine DC' ed. Gave albumin overnight. Pressures maintained >100 systolic last NOC. Sats down to 76% this morning on 100% FiO2, on ABG the pCO2 is the highest it has been this admission (65.4). Pressures subsequently decreased throughout rounding with minimum mid-40s systolic. Attempted to call the , no answer , spoke with daughter and informed her of the patient's low oxygen and low blood pressure. The family will come in. SUBJECTIVE N/A 24 HOUR I/O I: 2660cc O: 1025cc Net: 3625 BM: None reported - Current Medication List Current Medications: Active Medications Amino Acids (Prosource No Carb Liquid Pkt) 30 ml PO BID@0800,1730 [facility] Last Admin: 05/03/17 16:48 Dose: 30 ml Amiodarone HCl (Cordarone -) 400 mg PO DAILY [facility] Last Admin: 05/03/17 10:00 Dose: 400 mg Enoxaparin Sodium (Lovenox -) 65 mg SQ BID [facility] Last Admin: 05/03/17 21:28 Dose: 65 mg Furosemide (Lasix Injection -) 40 mg IVPUSH BIDLASIX [facility] Last Admin: 05/04/17 06:26 Dose: 40 mg Ampicillin Sodium 2 gm/ Sodium (Chloride) 100 mls @ 200 mls/hr IVPB Q4H-IV [facility] Last Admin: 05/04/17 06:21 Dose: 200 mls/hr Famotidine/Sodium Chloride (Pepcid 20 Mg Premixed Ivpb -) 20 mg in 50 mls @ 100 mls/hr IVPB BID [facility] Last Admin: 05/03/17 21:31 Dose: 100 mls/hr Dobutamine HCl 250,000 mcg/ (Sodium Chloride) 250 mls @ 19.7 mls/hr IV TITR [facility] ; 5 MCG/KG/MIN PRN Reason: Protocol Last Titration: 05/02/17 19:00 Dose: 0 mcg/kg/min, 0 mls/hr Fentanyl 500 mcg/ Dextrose 100 mls @ 10 mls/hr IVPB TITR [facility]; 50 MCG/HR PRN Reason: Protocol Last Admin: 05/03/17 13:16 Dose: 100 mcg/hr, 20 mls/hr Norepinephrine Bitartrate 8, (000 mcg/ Dextrose) 500 mls @ 18.75 mls/hr IV TITR [facility]; 5 MCG/MIN PRN Reason: Protocol Last Titration: 05/02/17 19:00 Dose: 10 mcg/min, 37.5 mls/hr Levothyroxine Sodium (Synthroid -) 75 mcg PO DAILY@0700 [facility] Last Admin: 05/04/17 06:26 Dose: 75 mcg Melatonin (Melatonin) 5 mg PO HS PRN PRN Reason: INSOMNIA Last Admin: 04/19/17 23:05 Dose: 5 mg Saliva Substitute (Mouthkote Solution -) 1 applic MM DAILY [facility] Last Admin: 05/03/17 09:46 Dose: 1 applic - Objective Vital Signs: Vital Signs Temperature 99.2 F 05/04/17 06:00 Pulse Rate 129 H 05/04/17 06:00 Respiratory Rate 18 05/04/17 07:01 Blood Pressure 119/82 05/04/17 06:00 O2 Sat by Pulse Oximetry (%) 96 05/02/17 20:56 Constitutional: Yes: No Distress, Calm, Other (sedated, intubated) Eyes: Yes: Conjunctiva Clear, EOM Intact HENT: Yes: Atraumatic, Normocephalic Neck: Yes: Supple, Trachea Midline Cardiovascular: Yes: Tachycardia Respiratory: Yes: Regular, Rhonchi. No: Accessory Muscle Use Gastrointestinal: Yes: Normal Bowel Sounds, Soft Extremities: Yes: Cyanosis (minimal). No: Cold Edema: Yes Integumentary: Yes: Bruising. 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 NEURO Patient is intubated. -Sedated with propofol w/ sedation vacations -Will continue to monitor CV #Hypotension. BP dropped to mid-40s systolic today, but patient maintained palpable carotid and radial pulses, not coded. -Continue norepi -Continue careful diuresis with bolus dosing only when SBP>90, MAP>65 -Will continue to monitor #Afib with RVR Patient initially presented with HR 160 now improved but remains mild tachycardic on amiodarone. Patient on xarelto at home for anti-coagulation. Cardiology is following. -Amiodarone at once/day dose per cardiology recs -Continue lovenox, now 1 mg/kg BID -Will continue to monitor closely -Appreciate cardiology recs #CHF (EF 20%, 2018) Patient being diuresed carefully d/t soft pressures/hypotension, needs SBP>90 and MAP>66 for Lasix bolus to be given -Conservative fluid hydration -Will continue to monitor closely RESP #Respiratory distress. Still intubated/on vent. -Continue vent settings -Continue daily CXR -Close monitoring of the patient's O2 saturation -Continue daily ABG GI #Elevated Liver Enzymes -Will continue to monitor and trend Renal No issues currently -Will continue to monitor BUN/Cr ID #Sepsis Blood cultures/CSF cultures concerning for Listeria meningitis. -Continue Ampicillin and Gentamycin for aggressive antibiotic coverage -Continue to manage fever with Tylenol -Serial CXR -Will continue to monitor -ID is following and appreciate recs MSK No issues currently FEN/GI -Replete electrolytes PRN -Continue to monitor PPX -Continue Lovenox Lines/Drains/Tubes (updated 05/02/17) Judge: on day 10 now CVC: on day 11 now Feeding tube: placed 04/20/17 ET tube PIV DISPO: Continue ICU level of care. Prognosis poor. DNR signed by family.
[2017-05-04 07:15] LABS: ACTIVATED PTT 37.2 SECONDS (26.9-34.4); ALK PHOS 163 U/L (45-117); BILIRUBIN,TOTAL 1.6 mg/dL (0.2-1.0); CREATININE 0.6 mg/dL (0.55-1.02); PHOSPHOROUS 2.8 mg/dL (2.5-4.9); SGOT/AST 26 U/L (15-37); SGPT/ALT 17 U/L (12-78); TOT PROT 4.6 g/dl (6.4-8.2)
[2017-05-04 07:27] LABS: ARTERIAL BLD GAS O2 SATURATION 82.9 % (90-98.9); ARTERIAL BLOOD GAS BASE EXCESS 4.6 meq/l (-2-2); ARTERIAL BLOOD GAS PO2 51.3 mmHg (68-100)
[2017-05-04 07:28] LABS: ALLENS TEST POSITIVE
[2017-05-04 07:30] LABS: ARTERIAL BLOOD GAS PCO2 65.4 mmHg (35-45)
[2017-05-04 07:41] LABS: CALCIUM 6.6 mg/dL (8.5-10.1)
[2017-05-04] MEDS ORDERED: SODIUM PHOSPHATE - 30 MM in SODIUM CHLORIDE 250 ML IVPB ONE (09:00)
--- NOTE | 2017-05-04 09:00 | PN ---
Physical Exam: SUBJECTIVE: Patient seen and examined. Pt remains intubated. No events overnight. OBJECTIVE: Vital Signs Period Temp Pulse Resp BP Sys/Gandara Pulse Ox Last 24 Hr 98.6 F-99.9 F 35-141 13-26 90-122/67-92 GENERAL: Pt is intubated, withdraws to pain. LUNGS: cornelius diffuse crackles. HEART: Tachycardic, irregular, +S1/S2. ABDOMEN: Soft, nontender, +distended, hypoactive bowel sounds. EXTREMITIES: Anasarca, unchanged from yesterday. 2+ cornelius pulses. SKIN: Warm, dry, normal turgor, no rashes or lesions noted Laboratory Results - last 24 hr 05/04/17 05/04/17 05/04/17 05:00 05:00 05:00 WBC 5.7 D RBC 3.55 L Hgb 9.7 L D Hct 30.5 L MCV 85.9 MCH 27.4 MCHC 31.9 L RDW 18.6 H Plt Count 192 MPV 9.1 Neutrophils % 96.3 H Lymphocytes % 1.6 L Monocytes % 1.7 L Eosinophils % 0.1 Basophils % 0.3 PT with INR 11.80 INR 1.04 PTT (Actin FS) 37.2 H Anticoagulation Therapy Puncture Site ABG pH ABG pCO2 at Pt Temp ABG pO2 at Pt Temp ABG HCO3 ABG O2 Sat (Measured) ABG O2 Content ABG Base Excess José Miguel Test O2 Delivery Device Oxygen Flow Rate Vent Mode Vent Rate Mechanical Rate PEEP Pressure Support Vent Sodium 136 Potassium 3.1 L Chloride 97 L Carbon Dioxide 32 Anion Gap 7 L BUN 13 Creatinine 0.6 Creat Clearance w eGFR > 60 Random Glucose 116 H Calcium 6.6 L* Phosphorus 2.8 Magnesium 2.0 Total Bilirubin 1.6 H D AST 26 ALT 17 Alkaline Phosphatase 163 H Total Protein 4.6 L Albumin 2.4 L 05/04/17 06:15 WBC RBC Hgb Hct MCV MCH MCHC RDW Plt Count MPV Neutrophils % Lymphocytes % Monocytes % Eosinophils % Basophils % PT with INR INR PTT (Actin FS) Anticoagulation Therapy No Result Required. Puncture Site Right radial ABG pH 7.30 L ABG pCO2 at Pt Temp 65.4 H* D ABG pO2 at Pt Temp 51.3 L ABG HCO3 31.5 H ABG O2 Sat (Measured) 82.9 L ABG O2 Content 9.8 L* ABG Base Excess 4.6 H José Miguel Test Positive O2 Delivery Device Vent Oxygen Flow Rate 100% Vent Mode A/c Vent Rate 12 Mechanical Rate Yes PEEP 5.0 Pressure Support Vent 350 Sodium Potassium Chloride Carbon Dioxide Anion Gap BUN Creatinine Creat Clearance w eGFR Random Glucose Calcium Phosphorus Magnesium Total Bilirubin AST ALT Alkaline Phosphatase Total Protein Albumin Active Medications Generic Name Dose Route Start Last Admin Trade Name Freq PRN Reason Stop Dose Admin Amino Acids 30 ml 05/02/17 17:30 05/03/17 16:48 Prosource No Carb Liquid Pkt PO 30 ml BID@0800,1730 [facility] Administration Amiodarone HCl 400 mg 05/02/17 10:00 05/03/17 10:00 Cordarone - PO 400 mg DAILY [facility] Administration Enoxaparin Sodium 65 mg 05/02/17 10:00 05/03/17 21:28 Lovenox - SQ 65 mg BID [facility] Administration Furosemide 40 mg 05/01/17 14:00 05/04/17 06:26 Lasix Injection - IVPUSH 40 mg BIDLASIX [facility] Administration Ampicillin Sodium 2 gm/ Sodium 100 mls @ 200 mls/hr 04/22/17 12:00 05/04/17 06:21 Chloride IVPB 200 mls/hr Q4H-IV [facility] Administration Famotidine/Sodium Chloride 20 mg in 50 mls @ 100 mls/hr 04/26/17 22:00 21:31 Pepcid 20 Mg Premixed Ivpb - IVPB 100 mls/hr BID [facility] Administration Dobutamine HCl 250,000 mcg/ 250 mls @ 19.7 mls/hr 04/30/17 08:15 05/02/17 19: 00 Sodium Chloride IV 0 mcg/kg/min TITR [facility] 0 mls/hr Protocol Titration 5 MCG/KG/MIN Fentanyl 500 mcg/ Dextrose 100 mls @ 10 mls/hr 04/30/17 08:15 05/03/17 13:16 IVPB 100 mcg/hr TITR [facility] 20 mls/hr Protocol Administration 50 MCG/HR Norepinephrine Bitartrate 8, 500 mls @ 18.75 mls/hr 05/02/17 11:15 05/02/17 19:00 000 mcg/ Dextrose IV 10 mcg/min TITR [facility] 37.5 mls/hr Protocol Titration 5 MCG/MIN Levothyroxine Sodium 75 mcg 04/15/17 07:00 05/04/17 06:26 Synthroid - PO 75 mcg DAILY@0700 [facility] Administration Melatonin 5 mg 04/18/17 16:54 04/19/17 23:05 Melatonin PO 5 mg HS PRN Administration INSOMNIA Saliva Substitute 1 applic 04/20/17 17:15 05/03/17 09:46 Mouthkote Solution - MM 1 applic DAILY [facility] Administration ASSESSMENT/PLAN: 86F with PMH of afib (on Xarelto), CAD s/p stents (2009), systolic CHF, hld, hypothyroidism, sent to ER by her veneer patcher for 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 # septic shock 2/2 Listeria bacteremia and Listeria Meningitis - afebrile - on norepinephrine - ID (Dr. Ruelas) recs appreciated: Day 01/31 on IV Ampicillin. - blood culture (-) x 24 hrs # acute hypoxic respiratory failure - from septic shock, also likely 2/2 systolic CHF exacerbation from volume resuscitation - continue vent, not a candidate for weaning at this time due to oxygen requirements - progressively worsening respiratory status - continue fentanyl drip # afib with RVR - continues to have bursts of RVR - Xarelto held - continue Amiodarone # acute systolic CHF exacerbation - strict I&O's - monitor daily wts, weight stable from yesterday - pt remains anasarcic # hypothyroidism - continue home med of Synthroid # hypokalemia - repleted with KCl 20meq x 3 bags # FEN - Fluids: held for current diuresis - Electrolytes: continue to monitor - Nutrition: Osmolite 1.2 @ 20 ml/hr, goal rate 52 ml/hr for TV 1250ml # Prophylaxis - DVT ppx with Lovenox - GI ppx with Pepcid - deconditioning ppx with PT # dispo - Prognosis is poor. - extensive discussions with family resulted in DNR implementation - Palliative Care input appreciated Visit type - Emergency Visit Emergency Visit: Yes ED Registration Date: 04/14/17 Care time: The patient presented to the Emergency Department on the above date and was hospitalized for further evaluation of their emergent condition. - New Patient This patient is new to me today: No - Critical Care Critical Care patient: Yes Total Critical Care Time (in minutes): 40 Critical Care Statement: The care of this patient involved high complexity decision making to prevent further life threatening deterioration of the patient 's condition and/or to evaluate & treat vital organ system(s) failure or risk of failure.
[2017-05-04] MEDS ORDERED: PT OWN MED DRAWER 7, Y5N ONE ×3 (09:38→19:16)
[2017-05-04] MEDS: MIDAZOLAM 100 MG in SODIUM CHLORIDE 100 ML IVPB SCH (09:58)
[2017-05-04] MEDS: FAMOTIDINE 20 MG/50 ML IVPB 20 MG/50 ML MG IVPB SCH ×2 (10:02→21:09)
[2017-05-04] MEDS: LYTES/YERBA SANTA 240 ML BOTTLE MM SCH (10:05)
[2017-05-04] MEDS: ENOXAPARIN NA (PORCINE) 80 MG/0.8 ML DISP.SYRIN SQ SCH ×2 (10:05→21:09)
[2017-05-04] MEDS: AMIODARONE HCL 200 MG TABLET (FP) PO SCH (10:07)
[2017-05-04] MEDS: AMINO ACIDS/PROTEIN HYDROLYS 30 ML LIQUID.PKT PO SCH ×2 (10:07→17:03)
[2017-05-04] MEDS ORDERED: NOREPINEPHRINE BITARTRATE 4 MG/4 ML ML IV ONE ×3 (10:11→22:47)
[2017-05-04] MEDS: FENTANYL INJECTION 500 MCG in DEXTROSE 5%-WATER - 90 ML IVPB SCH (10:17)
--- NOTE | 2017-05-04 12:07 | PN ---
Teaching Attending Note Name of Resident: Fátima Washington ATTENDING PHYSICIAN STATEMENT I saw and evaluated the patient. I reviewed the resident's note and discussed the case with the resident. I agree with the resident's findings and plan as documented. SUBJECTIVE: Pt seen and examined in the ICU. Clinically deteriorating. On increased oxygen requirements now on PEEP 12, FiO2 100% and increasing levophed gtt. Awaiting decision from family on goals of care. OBJECTIVE: Last Vital Signs Temp Pulse Resp BP Pulse Ox 99.5 F 127 H 30 H 105/73 96 05/04/17 10:00 05/04/17 10:00 05/04/17 11:40 05/04/17 10:00 05/02/17 20:56 Intake & Output 05/01/17 05/02/17 05/03/17 05/04/17 23:59 23:59 23:59 23:59 Intake Total 1660 2807.7 2659.6 2300 Output Total 2950 1300 1025 Balance -1290 1507.7 1634.6 2300 Weight 64.773 kg 65.907 kg 65.8 kg 66.2 kg Gen: intubated, sedated, tachypneic Heart: tachycardic, irregular Lung: bilateral rhonchi, poor air entry Abd: softly distended, edematous Ext: + edema, +anasarca CBC, BMP 05/04/17 05:00 05/04/17 05:00 Active Medications Amino Acids (Prosource No Carb Liquid Pkt) 30 ml PO BID@0800,1730 [facility] Last Admin: 05/04/17 10:07 Dose: 30 ml Amiodarone HCl (Cordarone -) 400 mg PO DAILY [facility] Last Admin: 05/04/17 10:07 Dose: 400 mg Enoxaparin Sodium (Lovenox -) 65 mg SQ BID [facility] Last Admin: 05/04/17 10:05 Dose: 65 mg Furosemide (Lasix Injection -) 40 mg IVPUSH BIDLASIX [facility] Last Admin: 05/04/17 06:26 Dose: 40 mg Ampicillin Sodium 2 gm/ Sodium (Chloride) 100 mls @ 200 mls/hr IVPB Q4H-IV [facility] Last Admin: 05/04/17 06:21 Dose: 200 mls/hr Famotidine/Sodium Chloride (Pepcid 20 Mg Premixed Ivpb -) 20 mg in 50 mls @ 100 mls/hr IVPB BID [facility] Last Admin: 05/04/17 10:02 Dose: 100 mls/hr Fentanyl 500 mcg/ Dextrose 100 mls @ 10 mls/hr IVPB TITR [facility]; 50 MCG/HR PRN Reason: Protocol Last Admin: 05/04/17 10:17 Dose: 100 mcg/hr, 20 mls/hr Norepinephrine Bitartrate 8, (000 mcg/ Dextrose) 500 mls @ 18.75 mls/hr IV TITR [facility]; 5 MCG/MIN PRN Reason: Protocol Last Titration: 05/02/17 19:00 Dose: 10 mcg/min, 37.5 mls/hr Sodium Phosphate 30 mm/ Sodium (Chloride) 260 mls @ 62.5 mls/hr IVPB ONCE ONE Stop: 05/04/17 13:09 Midazolam HCl 100 mg/ Sodium (Chloride) 100 mls @ 1 mls/hr IVPB TITR [facility]; 1 MG/ HR PRN Reason: Protocol Last Admin: 05/04/17 09:58 Dose: 4 mg/hr, 4 mls/hr Levothyroxine Sodium (Synthroid -) 75 mcg PO DAILY@0700 [facility] Last Admin: 05/04/17 06:26 Dose: 75 mcg Melatonin (Melatonin) 5 mg PO HS PRN PRN Reason: INSOMNIA Last Admin: 04/19/17 23:05 Dose: 5 mg Saliva Substitute (Mouthkote Solution -) 1 applic MM DAILY [facility] Last Admin: 05/04/17 10:05 Dose: 1 applic ASSESSMENT AND PLAN: Acute Hypoxic Respiratory Failure Listeria Meningitis/Bacteremia Acute Colitis Septic vs Cardiogenic Shock Atrial Fibrillation with RVR Acute Kidney Injury improving Lactic Acidosis resolved Elevated LFTs resolved Acute on Chronic Diastolic/Systolic Heart Failure Coagulopathy improved Hypothyroidism - continue antibiotics per ID - titrate levophed gtt, maintain MAP >65 - monitor urine output, creatinine - rate control - continue anticoagulation - replete lytes - taper O2, PEEP to keep SpO2 >90% - not a candidate for weaning at this time due to oxygen requirements - enteral feeds - DVT/GI prophylaxis - continue ICU monitoring - very poor prognosis, awaiting decision from family regarding goals of care and advanced directives critical care time spent in reviewing chart, evaluating patient and formulating plan 40 min
--- NOTE | 2017-05-04 12:44 | PN ---
Teaching Attending Note Name of Resident: Maya Berger ATTENDING PHYSICIAN STATEMENT Time of evaluation: 9:15 AM I saw and evaluated the patient. I reviewed the resident's note and discussed the case with the resident. I agree with the resident's findings and plan as documented. SUBJECTIVE: Patient seen and examined. intubated sedated, unable to assess for ROS. OBJECTIVE: Vital Signs Period Temp Pulse Resp BP Sys/Gandara Pulse Ox Last 24 Hr 98.6 F-99.5 F 35-141 13-30 90-122/67-92 Intake & Output 05/01/17 05/02/17 05/03/17 05/04/17 23:59 23:59 23:59 23:59 Intake Total 1660 2807.7 2659.6 2300 Output Total 2950 1300 1025 Balance -1290 1507.7 1634.6 2300 Weight 142 lb 12.8 oz 145 lb 4.8 oz 145 lb 1.027 oz 145 lb 15.136 oz General: intubated sedated in bed, CVS;S1S2 irregular, rapid Chest: bilateral rales, occasional rhoncherous breath sounds Abdomen: soft, mildly distended, scant bowel sounds, no grimacing on deep palpation Extremities: anasarca, unchanged from yesterday Home Medication List Medication Instructions Recorded Confirmed Type Lisinopril [Zestril] 2.5 mg PO DAILY 03/13/16 04/14/17 History Levothyroxine [Synthroid -] 75 mcg PO DAILY@0700 04/14/17 04/14/17 History Metoprolol Tartrate 25 mg PO DAILY 04/18/17 04/18/17 History Omeprazole 40 mg PO DAILY 04/18/17 04/18/17 History Potassium Citrate [Potassium 20 meq PO DAILY 04/18/17 04/18/17 History Citrate ER] Active Medications Generic Name Dose Route Start Last Admin Trade Name Freq PRN Reason Stop Dose Admin Amino Acids 30 ml 05/02/17 17:30 05/04/17 10:07 Prosource No Carb Liquid Pkt PO 30 ml BID@0800,1730 SIMON Administration Amiodarone HCl 400 mg 05/02/17 10:05/04/17 10:07 Cordarone - PO 400 mg DAILY SIMON Administration Enoxaparin Sodium 65 mg 05/02/17 10:00 05/04/17 10:05 Lovenox - SQ 65 mg BID SIMON Administration Furosemide 40 mg 05/01/17 14:00 05/04/17 06:26 Lasix Injection - IVPUSH 40 mg BIDLASIX SIMON Administration Ampicillin Sodium 2 gm/ Sodium 100 mls @ 200 mls/hr 04/22/17 12:00 05/04/17 06:21 Chloride IVPB 200 mls/hr Q4H-IV SIMON Administration Famotidine/Sodium Chloride 20 mg in 50 mls @ 100 mls/hr 04/26/17 22:00 10:02 Pepcid 20 Mg Premixed Ivpb - IVPB 100 mls/hr BID SIMON Administration Fentanyl 500 mcg/ Dextrose 100 mls @ 10 mls/hr 04/30/17 08:15 05/04/17 10:17 IVPB 100 mcg/hr TITR SIMON 20 mls/hr Protocol Administration 50 MCG/HR Norepinephrine Bitartrate 8, 500 mls @ 18.75 mls/hr 05/02/17 11:15 05/02/17 19:00 000 mcg/ Dextrose IV 10 mcg/min TITR SIMON 37.5 mls/hr Protocol Titration 5 MCG/MIN Sodium Phosphate 30 mm/ Sodium 260 mls @ 62.5 mls/hr 05/04/17 09:00 Chloride IVPB 05/04/17 13:09 ONCE ONE Midazolam HCl 100 mg/ Sodium 100 mls @ 1 mls/hr 05/04/17 09:45 05/04/17 09:58 Chloride IVPB 4 mg/hr TITR SIMON 4 mls/hr Protocol Administration 1 MG/HR Levothyroxine Sodium 75 mcg 04/15/17 07:00 05/04/17 06:26 Synthroid - PO 75 mcg DAILY@0700 SIMON Administration Melatonin 5 mg 04/18/17 16:54 04/19/17 23:05 Melatonin PO 5 mg HS PRN Administration INSOMNIA Saliva Substitute 1 applic 04/20/17 17:15 05/04/17 10:05 Mouthkote Solution - MM 1 applic DAILY SIMON Administration Laboratory Results - last 24 hr 05/04/17 05/04/17 05/04/17 05:00 05:00 05:00 WBC 5.7 D RBC 3.55 L Hgb 9.7 L D Hct 30.5 L MCV 85.9 MCH 27.4 MCHC 31.9 L RDW 18.6 H Plt Count 192 MPV 9.1 Neutrophils % 96.3 H Lymphocytes % 1.6 L Monocytes % 1.7 L Eosinophils % 0.1 Basophils % 0.3 PT with INR 11.80 INR 1.04 PTT (Actin FS) 37.2 H Anticoagulation Therapy Puncture Site ABG pH ABG pCO2 at Pt Temp ABG pO2 at Pt Temp ABG HCO3 ABG O2 Sat (Measured) ABG O2 Content ABG Base Excess José Miguel Test O2 Delivery Device Oxygen Flow Rate Vent Mode Vent Rate Mechanical Rate PEEP Pressure Support Vent Sodium 136 Potassium 3.1 L Chloride 97 L Carbon Dioxide 32 Anion Gap 7 L BUN 13 Creatinine 0.6 Creat Clearance w eGFR > 60 Random Glucose 116 H Calcium 6.6 L* Phosphorus 2.8 Magnesium 2.0 Total Bilirubin 1.6 H D AST 26 ALT 17 Alkaline Phosphatase 163 H Total Protein 4.6 L Albumin 2.4 L 05/04/17 06:15 WBC RBC Hgb Hct MCV MCH MCHC RDW Plt Count MPV Neutrophils % Lymphocytes % Monocytes % Eosinophils % Basophils % PT with INR INR PTT (Actin FS) Anticoagulation Therapy No Result Required. Puncture Site Right radial ABG pH 7.30 L ABG pCO2 at Pt Temp 65.4 H* D ABG pO2 at Pt Temp 51.3 L ABG HCO3 31.5 H ABG O2 Sat (Measured) 82.9 L ABG O2 Content 9.8 L* ABG Base Excess 4.6 H José Miguel Test Positive O2 Delivery Device Vent Oxygen Flow Rate 100% Vent Mode A/c Vent Rate 12 Mechanical Rate Yes PEEP 5.0 Pressure Support Vent 350 Sodium Potassium Chloride Carbon Dioxide Anion Gap BUN Creatinine Creat Clearance w eGFR Random Glucose Calcium Phosphorus Magnesium Total Bilirubin AST ALT Alkaline Phosphatase Total Protein Albumin Microbiology 05/03/17 09:05 Blood - Peripheral Venous Blood Culture - Preliminary NO GROWTH OBTAINED AFTER 24 HOURS, INCUBATION TO CONTINUE FOR 4 DAYS. 05/03/17 08:00 Blood - Peripheral Venous Blood Culture - Preliminary NO GROWTH OBTAINED AFTER 24 HOURS, INCUBATION TO CONTINUE FOR 4 DAYS. 04/25/17 11:15 Blood - Peripheral Venous Blood Culture - Final NO GROWTH AFTER 5 DAYS INCUBATION 04/25/17 09:35 Blood - Peripheral Venous Blood Culture - Final NO GROWTH AFTER 5 DAYS INCUBATION 04/20/17 09:15 Blood - Peripheral Venous Blood Culture - Preliminary Listeria Monocytogenes 04/25/17 11:00 Sputum - Endotrachea Suction/Ventilator Gram Stain - Final 04/25/17 11:00 Sputum - Endotrachea Suction/Ventilator Sputum Culture - Final Yeast Like Organism 04/22/17 11:34 Blood - Peripheral Venous Blood Culture - Final NO GROWTH AFTER 5 DAYS INCUBATION 04/22/17 11:29 Blood - Peripheral Venous Blood Culture - Final NO GROWTH AFTER 5 DAYS INCUBATION 04/22/17 16:45 Cerebral Spinal Fluid - Lumbar Puncture AFB Smear Concentration - Final 04/25/17 11:18 Urine - Urine Judge Urine Culture - Final NO GROWTH OBTAINED 04/22/17 16:45 Cerebral Spinal Fluid - Lumbar Puncture Gram Stain - Final 04/22/17 16:45 Cerebral Spinal Fluid - Lumbar Puncture CSF Culture - Final NO GROWTH AFTER 48 HOURS INCUBATION 04/20/17 08:30 Blood - Peripheral Venous Blood Culture - Final Listeria Monocytogenes 04/23/17 10:05 Urine For Antigen Detection Legionella Antigen - Final 04/23/17 10:05 Urine For Antigen Detection Streptococcus pneumoniae Antigen (M - Final 04/22/17 16:45 Cerebral Spinal Fluid - Lumbar Puncture Streptococcus pneumoniae Antigen (M - Final 04/18/17 08:00 Blood - Peripheral Venous Blood Culture - Final NO GROWTH AFTER 5 DAYS INCUBATION 04/18/17 08:00 Blood - Peripheral Venous Blood Culture - Final NO GROWTH AFTER 5 DAYS INCUBATION 04/20/17 11:05 Urine - Urine - Catheterized Urine Culture - Final NO GROWTH OBTAINED 04/20/17 07:55 Nasopharyngeal Swab Influenza Types A,B Antigen (SÁNCHEZ) - Final 04/20/17 07:55 Nasopharyngeal Swab - Final 04/15/17 04:30 Nasopharyngeal Swab Influenza Types A,B Antigen (SÁNCHEZ) - Final 04/15/17 04:30 Nasopharyngeal Swab - Final CXR- some improvement in congestion and infiltrate ASSESSMENT AND PLAN: 86yo F with PMH AFib on xarelto, CAD s/p stents, hypothyroid, Systolic CHF, dyslipidemia sent to the ER by her customer development representative for afib with RVR -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 -Acute hypoxic respiratory failure from septic shock and likely systolic HF exacerbation from volume resuscitation, now suspect ARDS -Lactic acidosis -Afib with RVR -Acute Systolic Heart failure exacerbation -Coagulopathy, elevated INR, suspect from hepatic congestion/amiodarone -Abnormal LFTs, likely congestive hepatopathy -Hypothyoridism -SELMA, prerenal likely from CKD on her CKD (from poor EF) -Pseudohypocalcemia -Intermittent hallucinations/delusions, Suspect delirium in the setting of mild underlying dementia -Hypophosphatemia -Pneumococcal antigen positive -Acute on chronic anemia, recurrent blood draws, septic shock Plan: Progressively worsening respiratory status. lasix with albumin 2/. Still I/O' s positive. On levophed, titrate per BP. ID input noted, Ampicillin, continue to for now. Follow up repeat cultures. Check FOBT, trend Hb for now. Amiodarone/metoprolol per cardiology. Unlikely candidate for full dose anti- coagulation currently. Tube feeds Condition continues to worsen with poor prognosis given progressive anasarca, poor mental status with worsening hemodynamics and multiorgan involvement and underlying very poor EF and septic shock. Palliative care input appreciated. COntinue to address overall goals with family, agreable to DNR total critical care time spent 40 min.
[2017-05-04] MEDS: POTASSIUM CHLORIDE 20 MEQ PREMIX IVPB 100 ML IVPB SCH ×3 (13:54→16:33)
[2017-05-04] MEDS: NOREPINEPHRINE BITARTRATE 8,000 MCG in DEXTROSE 5%-WATER - 492 ML IV SCH ×2 (14:56→16:33)
[2017-05-05] MEDS: AMPICILLIN - 2 GM in SODIUM CHLORIDE 100 ML IVPB SCH ×4 (01:54→14:15)
[2017-05-05] MEDS: LEVOTHYROXINE NA 75 MCG TABLET (FP) PO SCH (06:30)
[2017-05-05] MEDS ORDERED: fentaNYL CITRATE 250 MCG/5 ML VIAL ONE ×2 (06:31→11:46)
[2017-05-05] MEDS: FENTANYL INJECTION 500 MCG in DEXTROSE 5%-WATER - 90 ML IVPB SCH ×2 (06:35→11:52)
[2017-05-05] MEDS: FUROSEMIDE 40 MG/4 ML INJECTABLE VIAL IVPUSH SCH ×2 (06:35→14:15)
[2017-05-05] MEDS: MIDAZOLAM 100 MG in SODIUM CHLORIDE 100 ML IVPB SCH ×2 (06:35→11:58)
--- NOTE | 2017-05-05 06:59 | PN ---
Physical Exam: SUBJECTIVE: 24hrt events: Pt was made DNR yesterday after medical team's family meeting with , son, and daughter present. Comfortable weaning has been brought up , but no decision has been made to initiate weaning. Otherwise no acute events. Pt is intubated and sedated currently with limited HPI. OBJECTIVE: Vital Signs Period Temp Pulse Resp BP Sys/Gandara Pulse Ox Last 24 Hr 98.5 F-100.2 F 127-157 14-32 80-143/66-100 GENERAL: NAD, continues to be intubated HEENT: Pupils pinpoint, sclera anicteric with clear conjunctiva LUNGS: Rhonchous breath sounds bilaterally, no accessory muscle use. On AC vent HEART: Tachycardic with regular rhythm, S1, S2 without murmur, rub or gallop. ABDOMEN: Soft, nontender, nondistended, hypoactive bowel sounds, EXTREMITIES: 2+ DP pulses, trace LE bilaterally SKIN: Warm, dry, no rashes or lesions noted Laboratory Results - last 24 hr 05/04/17 05/04/17 05/04/17 05:00 05:00 05:00 WBC 5.7 D RBC 3.55 L Hgb 9.7 L D Hct 30.5 L MCV 85.9 MCH 27.4 MCHC 31.9 L RDW 18.6 H Plt Count 192 MPV 9.1 Neutrophils % 96.3 H Lymphocytes % 1.6 L Monocytes % 1.7 L Eosinophils % 0.1 Basophils % 0.3 PT with INR 11.80 INR 1.04 PTT (Actin FS) 37.2 H Puncture Site ABG pH ABG pCO2 at Pt Temp ABG pO2 at Pt Temp ABG HCO3 ABG O2 Sat (Measured) ABG O2 Content ABG Base Excess José Miguel Test O2 Delivery Device Oxygen Flow Rate Vent Mode Vent Rate Mechanical Rate PEEP Pressure Support Vent Sodium 136 Potassium 3.1 L Chloride 97 L Carbon Dioxide 32 Anion Gap 7 L BUN 13 Creatinine 0.6 Creat Clearance w eGFR > 60 Random Glucose 116 H Calcium 6.6 L* Phosphorus 2.8 Magnesium 2.0 Total Bilirubin 1.6 H D AST 26 ALT 17 Alkaline Phosphatase 163 H Total Protein 4.6 L Albumin 2.4 L 05/04/17 06:15 WBC RBC Hgb Hct MCV MCH MCHC RDW Plt Count MPV Neutrophils % Lymphocytes % Monocytes % Eosinophils % Basophils % PT with INR INR PTT (Actin FS) Puncture Site Right radial ABG pH 7.30 L ABG pCO2 at Pt Temp 65.4 H* D ABG pO2 at Pt Temp 51.3 L ABG HCO3 31.5 H ABG O2 Sat (Measured) 82.9 L ABG O2 Content 9.8 L* ABG Base Excess 4.6 H José Miguel Test Positive O2 Delivery Device Vent Oxygen Flow Rate 100% Vent Mode A/c Vent Rate 12 Mechanical Rate Yes PEEP 5.0 Pressure Support Vent 350 Sodium Potassium Chloride Carbon Dioxide Anion Gap BUN Creatinine Creat Clearance w eGFR Random Glucose Calcium Phosphorus Magnesium Total Bilirubin AST ALT Alkaline Phosphatase Total Protein Albumin Active Medications Generic Name Dose Route Start Last Admin Trade Name Freq PRN Reason Stop Dose Admin Amino Acids 30 ml 05/02/17 17:30 05/04/17 17:03 Prosource No Carb Liquid Pkt PO 30 ml BID@0800,1730 SIMON Administration Amiodarone HCl 400 mg 05/02/17 10:00 05/04/17 10:07 Cordarone - PO 400 mg DAILY SIMON Administration Enoxaparin Sodium 65 mg 05/02/17 10:00 05/04/17 21:09 Lovenox - SQ 65 mg BID SIMON Administration Furosemide 40 mg 05/01/17 14:00 05/05/17 06:35 Lasix Injection - IVPUSH 40 mg BIDLASIX SIMON Administration Ampicillin Sodium 2 gm/ Sodium 100 mls @ 200 mls/hr 04/22/17 12:00 05/05/17 06:30 Chloride IVPB 200 mls/hr Q4H-IV SIMON Administration Famotidine/Sodium Chloride 20 mg in 50 mls @ 100 mls/hr 04/26/17 22:00 21:09 Pepcid 20 Mg Premixed Ivpb - IVPB 100 mls/hr BID SIMON Administration Fentanyl 500 mcg/ Dextrose 100 mls @ 10 mls/hr 04/30/17 08:15 05/05/17 06:35 IVPB 100 mcg/hr TITR SIMON 20 mls/hr Protocol Administration 50 MCG/HR Norepinephrine Bitartrate 8, 500 mls @ 18.75 mls/hr 05/02/17 11:15 05/04/17 16:33 000 mcg/ Dextrose IV 10 mcg/min TITR SIMON 37.5 mls/hr Protocol Administration 5 MCG/MIN Midazolam HCl 100 mg/ Sodium 100 mls @ 1 mls/hr 05/04/17 09:45 05/05/17 06:35 Chloride IVPB 4 mg/hr TITR SIMON 4 mls/hr Protocol Administration 1 MG/HR Levothyroxine Sodium 75 mcg 04/15/17 07:00 05/05/17 06:30 Synthroid - PO 75 mcg DAILY@0700 SIMON Administration Melatonin 5 mg 04/18/17 16:54 04/19/17 23:05 Melatonin PO 5 mg HS PRN Administration INSOMNIA Saliva Substitute 1 applic 04/20/17 17:15 05/04/17 10:05 Mouthkote Solution - MM 1 applic DAILY SIMON Administration ASSESSMENT/PLAN: ASSESSMENT/PLAN: 86 YOF with h/o A-fib, CAD s/p stents, CHF, HLD, hypothyroidism, who initially presented with A. fib with RVR found to have Listeria meningitis NEURO Patient continues to be intubated. --Sedation vacations to continue; however so far no meaningful vacations to date --Continue to monitor and keep comfortable Cardiovascular 1) Hypotension. --Otherwise resolved from previous episodes --Currently 107/63 --Continue Levophed with titration as needed --Will continue to monitor --Diuresis? when SBP allowing (>90 or MAP> 65) 2) Afib with RVR --Currently controlled with no tachycardic events for 24hrs --Amiodarone qDaily per cardiology --Continue Lovenox --Continue to monitor 3) systolic CHF (EF 20%) --Continue to diurese with SBP/MAP allowing --Monitor pulmonary exam Respiratory 1)Respiratory distress. Still intubated/on vent. -Continue vent settings -Continue daily CXR -Close monitoring of the patient's O2 saturation GI 1)Elevated Liver Enzymes -Will continue to monitor and trend ID 1) Sepsis 2/2 to listeria meningitis confirmed with CSF cultures --Continue Ampicillin and Gentamycin --Continue fever coverage with tylenol --ID consults reviewed and appreciated FEN -Replete electrolytes PRN -Continue to monitor PPX -Continue Lovenox Lines/Drains/Tubes (updated 05/02/17) Judge: on day 11 now CVC: on day 12 now Feeding tube: placed 04/20/17 ET tube PIV DISPO: Continue ICU level of care. Prognosis poor. DNR signed by family. Will discuss compassionate weaning with family further Visit type - Emergency Visit Emergency Visit: No - New Patient This patient is new to me today: No - Critical Care Critical Care patient: No
--- NOTE | 2017-05-05 07:30 | PN ---
Progress Note, Physician Chief Complaint: ID Overall no change in preterminal status Family still not consented to comfort care measures per residnet Ampicillin day 12 Rx - Current Medication List Current Medications: Active Medications Amino Acids (Prosource No Carb Liquid Pkt) 30 ml PO BID@0800,1730 [facility] Last Admin: 05/04/17 17:03 Dose: 30 ml Amiodarone HCl (Cordarone -) 400 mg PO DAILY [facility] Last Admin: 05/04/17 10:07 Dose: 400 mg Enoxaparin Sodium (Lovenox -) 65 mg SQ BID [facility] Last Admin: 05/04/17 21:09 Dose: 65 mg Furosemide (Lasix Injection -) 40 mg IVPUSH BIDLASIX [facility] Last Admin: 05/05/17 06:35 Dose: 40 mg Ampicillin Sodium 2 gm/ Sodium (Chloride) 100 mls @ 200 mls/hr IVPB Q4H-IV [facility] Last Admin: 05/05/17 06:30 Dose: 200 mls/hr Famotidine/Sodium Chloride (Pepcid 20 Mg Premixed Ivpb -) 20 mg in 50 mls @ 100 mls/hr IVPB BID [facility] Last Admin: 05/04/17 21:09 Dose: 100 mls/hr Fentanyl 500 mcg/ Dextrose 100 mls @ 10 mls/hr IVPB TITR SIMON; 50 MCG/HR PRN Reason: Protocol Last Admin: 05/05/17 06:35 Dose: 100 mcg/hr, 20 mls/hr Norepinephrine Bitartrate 8, (000 mcg/ Dextrose) 500 mls @ 18.75 mls/hr IV TITR SIMON; 5 MCG/MIN PRN Reason: Protocol Last Admin: 05/04/17 16:33 Dose: 10 mcg/min, 37.5 mls/hr Midazolam HCl 100 mg/ Sodium (Chloride) 100 mls @ 1 mls/hr IVPB TITR SIMON; 1 MG/ HR PRN Reason: Protocol Last Admin: 05/05/17 06:35 Dose: 4 mg/hr, 4 mls/hr Levothyroxine Sodium (Synthroid -) 75 mcg PO DAILY@0700 [facility] Last Admin: 05/05/17 06:30 Dose: 75 mcg Melatonin (Melatonin) 5 mg PO HS PRN PRN Reason: INSOMNIA Last Admin: 04/19/17 23:05 Dose: 5 mg Saliva Substitute (Mouthkote Solution -) 1 applic MM DAILY [facility] Last Admin: 05/04/17 10:05 Dose: 1 applic - Objective Vital Signs: Vital Signs Temperature 98.5 F 05/05/17 06:00 Pulse Rate 129 H 05/05/17 06:00 Respiratory Rate 30 H 05/05/17 06:00 Blood Pressure 112/82 05/05/17 06:00 O2 Sat by Pulse Oximetry (%) 96 05/02/17 20:56 Labs: CBC, BMP 05/04/17 05:00 05/04/17 05:00 INR, PTT INR 1.04 (0.82-1.09) 05/04/17 05:00 Fibrinogen 252.0 mg/dL (238-498) 04/23/17 05:15 Problem List - Problems (1) Sepsis Code(s): A41.9 - SEPSIS, UNSPECIFIED ORGANISM (2) Atrial fibrillation with RVR Code(s): I48.91 - UNSPECIFIED ATRIAL FIBRILLATION (3) Bacteremia due to Gram-positive bacteria Code(s): R78.81 - BACTEREMIA (4) Listeria brain infection Code(s): A32.12 - LISTERIAL MENINGOENCEPHALITIS (5) Respiratory failure Code(s): J96.90 - RESPIRATORY FAILURE, UNSP, UNSP W HYPOXIA OR HYPERCAPNIA Assessment/Plan Microbiology 04/25/17 11:18 Urine - Urine Judge Urine Culture - Final NO GROWTH OBTAINED 05/03/17 09:05 Blood - Peripheral Venous Blood Culture - Preliminary NO GROWTH OBTAINED AFTER 24 HOURS, INCUBATION TO CONTINUE FOR 4 DAYS. 05/03/17 08:00 Blood - Peripheral Venous Blood Culture - Preliminary NO GROWTH OBTAINED AFTER 24 HOURS, INCUBATION TO CONTINUE FOR 4 DAYS. Laboratory Tests 05/04/17 05/04/17 05:00 05:00 WBC 5.7 D Hgb 9.7 L D Plt Count 192 Creat Clearance w eGFR > 60 Total Bilirubin 1.6 H D AST 26 Alkaline Phosphatase 163 H Assessment Listeriosis with meningntis Multiorrgan failure Plan Complete course of antibiotic another 2 days Suraj CHRISTENSEN
[2017-05-05] MEDS: NOREPINEPHRINE BITARTRATE 8,000 MCG in DEXTROSE 5%-WATER - 492 ML IV SCH ×2 (08:00→11:59)
[2017-05-05] MEDS ORDERED: NOREPINEPHRINE BITARTRATE 4 MG/4 ML ML IV ONE (08:32)
[2017-05-05] MEDS ORDERED: PT OWN MED DRAWER 7, Y5N ONE (09:16)
[2017-05-05] MEDS: ENOXAPARIN NA (PORCINE) 80 MG/0.8 ML DISP.SYRIN SQ SCH (09:20)
[2017-05-05] MEDS: AMINO ACIDS/PROTEIN HYDROLYS 30 ML LIQUID.PKT PO SCH (09:20)
[2017-05-05] MEDS: FAMOTIDINE 20 MG/50 ML IVPB 20 MG/50 ML MG IVPB SCH (09:20)
[2017-05-05] MEDS: AMIODARONE HCL 200 MG TABLET (FP) PO SCH (09:21)
[2017-05-05] MEDS: LYTES/YERBA SANTA 240 ML BOTTLE MM SCH (09:25)
[2017-05-05 09:39] LABS: HEMATOCRIT 31.2 % (32.4-45.2); HEMOGLOBIN 9.9 GM/dL (10.7-15.3); MCH 26.5 pg (25.7-33.7); MCHC 31.6 g/dl (32.0-36.0); MEAN CELL VOLUME 83.9 fl (80-96); MEAN PLT VOLUME 9.3 fl (7.5-11.1); PLATELET COUNT 226 K/MM3 (134-434); RBC 3.72 M/mm3 (3.60-5.2); RDW 18.9 % (11.6-15.6); WHITE BLOOD COUNT 9.5 K/mm3 (4.0-10.0)
[2017-05-05 10:04] LABS: ALBUMIN 1.8 g/dl (3.4-5.0); ANION GAP 10 (8-16); BLOOD UREA NITROGEN 17 mg/dL (7-18); CHLORIDE 97 mmol/L (98-107); CO2 29 mmol/L (21-32); GLUCOSE,RANDOM 117 mg/dL (74-106); PHOSPHOROUS 3.4 mg/dL (2.5-4.9); SGPT/ALT 12 U/L (12-78); SODIUM 136 mmol/L (136-145); TOT PROT 4.3 g/dl (6.4-8.2)
[2017-05-05 10:10] LABS: ALK PHOS 143 U/L (45-117); BILIRUBIN,TOTAL 1.7 mg/dL (0.2-1.0)
[2017-05-05 10:13] LABS: SGOT/AST 39 U/L (15-37)
[2017-05-05 10:14] LABS: POTASSIUM 3.6 mmol/L (3.5-5.1)
[2017-05-05 10:16] LABS: CALCIUM 6.5 mg/dL (8.5-10.1)
--- NOTE | 2017-05-05 12:06 | PN ---
Teaching Attending Note Name of Resident: Jonathan Rueda ATTENDING PHYSICIAN STATEMENT I saw and evaluated the patient. I reviewed the resident's note and discussed the case with the resident. I agree with the resident's findings and plan as documented. SUBJECTIVE: Patient seen and examined in the ICU. Remains intubated and sedated on AC Mode of vent. NE for hemodynamic support. CXR: some improvement in Bilateral infiltrate Constitutional: Yes: Intubated and sedated. HENT: Yes: Atraumatic Neck: Yes: Supple, Cardiovascular: Yes: Tachycardic Respiratory: Yes: Bilateral Ronchi Gastrointestinal: soft nt/nd Extremities: Yes: +edema Labs: Laboratory Results - last 24 hr 05/05/17 05/05/17 09:10 09:10 WBC 9.5 D RBC 3.72 Hgb 9.9 L Hct 31.2 L MCV 83.9 MCH 26.5 MCHC 31.6 L RDW 18.9 H Plt Count 226 MPV 9.3 Sodium 136 Potassium 3.6 Chloride 97 L Carbon Dioxide 29 Anion Gap 10 BUN 17 Creatinine 1.0 Creat Clearance w eGFR 52.82 Random Glucose 117 H Calcium 6.5 L* Phosphorus 3.4 Magnesium 2.0 Total Bilirubin 1.7 H AST 39 H ALT 12 Alkaline Phosphatase 143 H Total Protein 4.3 L Albumin 1.8 L ASSESSMENT AND PLAN: Acute Hypoxic Respiratory Failure Listeria Meningitis/Bacteremia Acute Colitis Septic Shock Atrial Fibrillation with RVR Acute Kidney Injury improving Lactic Acidosis resolved Elevated LFTs resolved Acute on Chronic Diastolic Heart Failure Coagulopathy improved Hypothyroidism - continue antibiotics per ID - titrate pressors to maintain MAP >65 - monitor urine output, creatinine - rate control - anticoagulation, target INR 2-3 - replete lytes - O2 to keep SpO2 >90% - continue ICU monitoring - guarded prognosis - Now DNR/DNI, family contemplating compassionate extubation Dr Laguna Critical care time spent in reviewing chart, evaluating patient and formulating plan 36 min
--- NOTE | 2017-05-05 13:39 | HOSP ---
Subjective - Review of Symptoms Events since last encounter: On 05/04/15 I had the family of Lucía Moreno join me for a family meeting to discuss advanced directives and goals of Care. I was accompanied by Arlet Rachel and Rev. Rosenthal. I first asked all family members to join us in private room in ICU. I started the conversation by allowing the family to explain to me what they understood about the patients condition. I then proceeded to explain to them what exactly had transpired during this hospitalization and the patients current condition. I explained to the family that given the fact that she had not tolerated either weaning off vent or discontinuation of pressor medications that her prognosis is poor. After a lengthy discussion in which I answered their questions. The family has agreed to sign a DNR which was placed in chart. They will make an ultimate decision whether or not to compassionately wean the patient off the vent. This process was explained to them in detail by Arlet. They will let us know there decision by tomorrow. <Se Craft - Last Filed: 05/05/17 13:51> - Review of Symptoms Events since last encounter: Correction: discussion was held on 05/04/2017 (and not 05/04/15) <Carmita Umaña - Last Filed: 05/06/17 17:37> Physical Examination Vital Signs: Vital Signs Temperature 99.4 F 05/05/17 10:00 Pulse Rate 122 H 05/05/17 12:38 Respiratory Rate 30 H 05/05/17 12:38 Blood Pressure 116/69 05/05/17 12:38 O2 Sat by Pulse Oximetry (%) 95 05/05/17 11:21 Labs: CBC, KYLE 05/05/17 09:10 05/05/17 09:10 <Se Craft - Last Filed: 05/05/17 13:51> Vital Signs: Vital Signs Temperature 99.5 F 05/05/17 14:00 Pulse Rate 72 05/05/17 17:08 Respiratory Rate 34 H 05/05/17 17:08 Blood Pressure 62/40 05/05/17 17:08 O2 Sat by Pulse Oximetry (%) 92 L 05/05/17 16:55 Labs: CBC, BMP 05/05/17 09:10 05/05/17 09:10 <Carmita Umaña - Last Filed: 05/06/17 17:37> Visit type - Emergency Visit Emergency Visit: Yes ED Registration Date: 04/14/17 Care time: The patient presented to the Emergency Department on the above date and was hospitalized for further evaluation of their emergent condition. - New Patient This patient is new to me today: No - Critical Care Critical Care patient: Yes Total Critical Care Time (in minutes): 65 Critical Care Statement: The care of this patient involved high complexity decision making to prevent further life threatening deterioration of the patient 's condition and/or to evaluate & treat vital organ system(s) failure or risk of failure. <Se Craft - Last Filed: 05/05/17 13:51>
--- NOTE | 2017-05-05 13:41 | PN ---
<Maya Berger - Last Filed: 05/05/17 13:25> Physical Exam: SUBJECTIVE: Patient seen and examined. Pt remains intubated, on norepinephrine for hemodynamic support. No events overnight. OBJECTIVE: Vital Signs Period Temp Pulse Resp BP Sys/Gandara Pulse Ox Last 24 Hr 98.5 F-100.2 F 121-157 18-32 80-143/66-100 93-100 GENERAL: Pt is intubated, withdraws to pain. LUNGS: cornelius diffuse rhonchi. HEART: Tachycardic, +S1/S2. ABDOMEN: Soft, nontender, +distended, hypoactive bowel sounds. EXTREMITIES: Anasarca, unchanged from yesterday. SKIN: dry, no lesions noted Laboratory Results - last 24 hr 05/05/17 05/05/17 09:10 09:10 WBC 9.5 D RBC 3.72 Hgb 9.9 L Hct 31.2 L MCV 83.9 MCH 26.5 MCHC 31.6 L RDW 18.9 H Plt Count 226 MPV 9.3 Sodium 136 Potassium 3.6 Chloride 97 L Carbon Dioxide 29 Anion Gap 10 BUN 17 Creatinine 1.0 Creat Clearance w eGFR 52.82 Random Glucose 117 H Calcium 6.5 L* Phosphorus 3.4 Magnesium 2.0 Total Bilirubin 1.7 H AST 39 H ALT 12 Alkaline Phosphatase 143 H Total Protein 4.3 L Albumin 1.8 L Active Medications Generic Name Dose Route Start Last Admin Trade Name Freq PRN Reason Stop Dose Admin Amino Acids 30 ml 05/02/17 17:30 05/05/17 09:20 Prosource No Carb Liquid Pkt PO 30 ml BID@0800,1730 SIMON Administration Amiodarone HCl 400 mg 05/02/17 10:00 05/05/17 09:21 Cordarone - PO 400 mg DAILY SIMON Administration Enoxaparin Sodium 65 mg 05/02/17 10:00 05/05/17 09:20 Lovenox - SQ 65 mg BID SIMON Administration Furosemide 40 mg 05/01/17 14:00 05/05/17 06:35 Lasix Injection - IVPUSH 40 mg BIDLASIX SIMON Administration Ampicillin Sodium 2 gm/ Sodium 100 mls @ 200 mls/hr 04/22/17 12:00 05/05/17 09:21 Chloride IVPB 200 mls/hr Q4H-IV SIMON Administration Famotidine/Sodium Chloride 20 mg in 50 mls @ 100 mls/hr 04/26/17 22:00 09:20 Pepcid 20 Mg Premixed Ivpb - IVPB 100 mls/hr BID SIMON Administration Fentanyl 500 mcg/ Dextrose 100 mls @ 10 mls/hr 04/30/17 08:15 05/05/17 11:52 IVPB 100 mcg/hr TITR SIMON 20 mls/hr Protocol Administration 50 MCG/HR Norepinephrine Bitartrate 8, 500 mls @ 18.75 mls/hr 05/02/17 11:15 05/05/17 11:59 000 mcg/ Dextrose IV 16 mcg/min TITR SIMON 60 mls/hr Protocol Administration 5 MCG/MIN Midazolam HCl 100 mg/ Sodium 100 mls @ 1 mls/hr 05/04/17 09:45 05/05/17 11:58 Chloride IVPB 4 mg/hr TITR SIMON 4 mls/hr Protocol Administration 1 MG/HR Levothyroxine Sodium 75 mcg 04/15/17 07:00 05/05/17 06:30 Synthroid - PO 75 mcg DAILY@0700 SIMON Administration Melatonin 5 mg 04/18/17 16:54 04/19/17 23:05 Melatonin PO 5 mg HS PRN Administration INSOMNIA Saliva Substitute 1 applic 04/20/17 17:15 05/05/17 09:25 Mouthkote Solution - MM 1 applic DAILY SIMON Administration IMAGIN05/04/17 CXR -> slight decrease in pulmonary and pleural findings. 05/05/17 CXR -> cornelius interstitial airspace lung disease again seen with interval mild consolidation at Right lower lung. Stable Right pleural effusion. 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 # septic shock with multiorgan failure 2/2 Listeria bacteremia and Listeria Meningitis - afebrile - on norepinephrine for pressor - on versed drip - ID (Dr. Ruelas) recs appreciated: Day 12 on IV Ampicillin. - blood culture (-) x 48 hrs # acute hypoxic respiratory failure - from septic shock, also likely 2/2 systolic CHF exacerbation from volume resuscitation - continue vent, not a candidate for weaning at this time due to oxygen requirements - progressively worsening respiratory status # afib with RVR - continues to have bursts of RVR - Xarelto held - continue Amiodarone # acute systolic CHF exacerbation - strict I&O's - monitor daily wts - pt remains anasarcic # hypothyroidism - continue home med of Synthroid # FEN - Fluids: held for current diuresis - Electrolytes: continue to monitor - Nutrition: Osmolite 1.2 @ 20 ml/hr, goal rate 52 ml/hr for TV 1250ml # Prophylaxis - DVT ppx with Lovenox - GI ppx with Pepcid - deconditioning ppx with PT # dispo - Prognosis is poor. Pt is DNR. - family contemplating compassionate extubation - Palliative Care input appreciated Visit type - Emergency Visit Emergency Visit: Yes ED Registration Date: 04/14/17 Care time: The patient presented to the Emergency Department on the above date and was hospitalized for further evaluation of their emergent condition. - New Patient This patient is new to me today: No - Critical Care Critical Care patient: Yes Total Critical Care Time (in minutes): 36 Critical Care Statement: The care of this patient involved high complexity decision making to prevent further life threatening deterioration of the patient 's condition and/or to evaluate & treat vital organ system(s) failure or risk of failure. <Carmita Umaña - Last Filed: 05/05/17 14:33> Physical Exam: patient seen and examined. Agree with above findings, exam and plan of care. 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 -Acute hypoxic respiratory failure from septic shock and likely systolic HF exacerbation from volume resuscitation, now suspect ARDS -Lactic acidosis -Afib with RVR -Acute Systolic Heart failure exacerbation -Coagulopathy, elevated INR, suspect from hepatic congestion/amiodarone -Abnormal LFTs, likely congestive hepatopathy -Hypothyoridism -SELMA, prerenal likely from CKD on her CKD (from poor EF) -Pseudohypocalcemia -Intermittent hallucinations/delusions, Suspect delirium in the setting of mild underlying dementia -Hypophosphatemia -Pneumococcal antigen positive -Acute on chronic anemia, recurrent blood draws, septic shock Continued discussion of goals of care with family. Family contemplating compassionate extubation. Will follow up. Total critical care time spent in ICU 35 min.
--- NOTE | 2017-05-05 15:33 | PN ---
Progress Note, Physician - Current Medication List Current Medications: Active Medications Amino Acids (Prosource No Carb Liquid Pkt) 30 ml PO BID@0800,1730 [facility] Last Admin: 05/05/17 09:20 Dose: 30 ml Amiodarone HCl (Cordarone -) 400 mg PO DAILY [facility] Last Admin: 05/05/17 09:21 Dose: 400 mg Enoxaparin Sodium (Lovenox -) 65 mg SQ BID [facility] Last Admin: 05/05/17 09:20 Dose: 65 mg Furosemide (Lasix Injection -) 40 mg IVPUSH BIDLASIX [facility] Last Admin: 05/05/17 14:15 Dose: 40 mg Ampicillin Sodium 2 gm/ Sodium (Chloride) 100 mls @ 200 mls/hr IVPB Q4H-IV [facility] Last Admin: 05/05/17 14:15 Dose: 200 mls/hr Famotidine/Sodium Chloride (Pepcid 20 Mg Premixed Ivpb -) 20 mg in 50 mls @ 100 mls/hr IVPB BID [facility] Last Admin: 05/05/17 09:20 Dose: 100 mls/hr Fentanyl 500 mcg/ Dextrose 100 mls @ 10 mls/hr IVPB TITR SIMON; 50 MCG/HR PRN Reason: Protocol Last Titration: 05/05/17 13:00 Dose: 75 mcg/hr, 15 mls/hr Norepinephrine Bitartrate 8, (000 mcg/ Dextrose) 500 mls @ 18.75 mls/hr IV TITR SIMON; 5 MCG/MIN PRN Reason: Protocol Last Titration: 05/05/17 14:00 Dose: 14 mcg/min, 52.5 mls/hr Midazolam HCl 100 mg/ Sodium (Chloride) 100 mls @ 1 mls/hr IVPB TITR SIMON; 1 MG/ HR PRN Reason: Protocol Last Admin: 05/05/17 11:58 Dose: 4 mg/hr, 4 mls/hr Levothyroxine Sodium (Synthroid -) 75 mcg PO DAILY@0700 [facility] Last Admin: 05/05/17 06:30 Dose: 75 mcg Melatonin (Melatonin) 5 mg PO HS PRN PRN Reason: INSOMNIA Last Admin: 04/19/17 23:05 Dose: 5 mg Saliva Substitute (Mouthkote Solution -) 1 applic MM DAILY [facility] Last Admin: 05/05/17 09:25 Dose: 1 applic - Objective Vital Signs: Vital Signs Temperature 99.4 F 05/05/17 10:00 Pulse Rate 123 H 05/05/17 14:20 Respiratory Rate 30 H 05/05/17 14:20 Blood Pressure 108/73 05/05/17 14:00 O2 Sat by Pulse Oximetry (%) 99 05/05/17 14:20 Labs: CBC, BMP 05/05/17 09:10 05/05/17 09:10 INR, PTT INR 1.04 (0.82-1.09) 05/04/17 05:00 Fibrinogen 252.0 mg/dL (238-498) 04/23/17 05:15 Problem List - Problems (1) Atrial fibrillation with RVR Code(s): I48.91 - UNSPECIFIED ATRIAL FIBRILLATION (2) CAD (coronary artery disease) Code(s): I25.10 - ATHSCL HEART DISEASE OF [place] CORONARY ARTERY W/O ANG PCTRS (3) Hypothyroid Code(s): E03.9 - HYPOTHYROIDISM, UNSPECIFIED (4) Renal insufficiency Code(s): N28.9 - DISORDER OF KIDNEY AND URETER, UNSPECIFIED (5) Acute respiratory failure Code(s): J96.00 - ACUTE RESPIRATORY FAILURE, UNSP W HYPOXIA OR HYPERCAPNIA (6) Septic shock Code(s): A41.9 - SEPSIS, UNSPECIFIED ORGANISM; R65.21 - SEVERE SEPSIS WITH SEPTIC SHOCK (7) CHF (congestive heart failure) Code(s): I50.9 - HEART FAILURE, UNSPECIFIED (8) Hypoalbuminemia Code(s): E88.09 - OTH DISORDERS OF PLASMA-PROTEIN METABOLISM, NEC
--- NOTE | 2017-05-05 15:33 | PN ---
Progress Note, Physician History of Present Illness: Patient is an 86 year old female with a significant past medical history of CAD w/ stents, afib on xarelto, HFpEF (EF 67.8%, 2016) and HLD who presents to the ED for tachycardia. Patient was seen in cardiology clinic today and was found on EKG to be in afib with RVR with a rate of 160. She was subsequently sent to ER for management. Patient currently has no complaints or pain while in the ED. Denies ever having CP/SOB/palpitations. Denies F/C/N/V/D. Reports compliance with all of her medications. Allergies: None Social history: Lives with daughter. No smoking. No alcohol. No illicit drugs. Surgical history: None PMD: Dr Parrish. Commercial Lending Relationship Manager: Dr. Andino " - Current Medication List Current Medications: Active Medications Amino Acids (Prosource No Carb Liquid Pkt) 30 ml PO BID@0800,1730 [facility] Last Admin: 05/05/17 09:20 Dose: 30 ml Amiodarone HCl (Cordarone -) 400 mg PO DAILY COUNT [facility]CLUD[facility] Last Admin: 05/05/17 09:21 Dose: 400 mg Enoxaparin Sodium (Lovenox -) 65 mg SQ BID COUNT [facility]CLUD[facility] Last Admin: 05/05/17 09:20 Dose: 65 mg Furosemide (Lasix Injection -) 40 mg IVPUSH BIDLASIX COUNT [facility]CLUD[facility] Last Admin: 05/05/17 14:15 Dose: 40 mg Ampicillin Sodium 2 gm/ Sodium (Chloride) 100 mls @ 200 mls/hr IVPB Q4H-IV COUNT [facility]CLUDES [facility] Last Admin: 05/05/17 14:15 Dose: 200 mls/hr Famotidine/Sodium Chloride (Pepcid 20 Mg Premixed Ivpb -) 20 mg in 50 mls @ 100 mls/hr IVPB BID COUNT [facility]CLUD[facility] Last Admin: 05/05/17 09:20 Dose: 100 mls/hr Fentanyl 500 mcg/ Dextrose 100 mls @ 10 mls/hr IVPB TITR SIMON; 50 MCG/HR PRN Reason: Protocol Last Titration: 05/05/17 13:00 Dose: 75 mcg/hr, 15 mls/hr Norepinephrine Bitartrate 8, (000 mcg/ Dextrose) 500 mls @ 18.75 mls/hr IV TITR SIMON; 5 MCG/MIN PRN Reason: Protocol Last Titration: 05/05/17 14:00 Dose: 14 mcg/min, 52.5 mls/hr Midazolam HCl 100 mg/ Sodium (Chloride) 100 mls @ 1 mls/hr IVPB TITR SIMON; 1 MG/ HR PRN Reason: Protocol Last Admin: 05/05/17 11:58 Dose: 4 mg/hr, 4 mls/hr Levothyroxine Sodium (Synthroid -) 75 mcg PO DAILY@0700 SIMON Last Admin: 05/05/17 06:30 Dose: 75 mcg Melatonin (Melatonin) 5 mg PO HS PRN PRN Reason: INSOMNIA Last Admin: 04/19/17 23:05 Dose: 5 mg Saliva Substitute (Mouthkote Solution -) 1 applic MM DAILY SIMON Last Admin: 05/05/17 09:25 Dose: 1 applic - Objective Vital Signs: Vital Signs Temperature 99.4 F 05/05/17 10:00 Pulse Rate 123 H 05/05/17 14:20 Respiratory Rate 30 H 05/05/17 14:20 Blood Pressure 108/73 05/05/17 14:00 O2 Sat by Pulse Oximetry (%) 99 05/05/17 14:20 Labs: CBC, BMP 05/05/17 09:10 05/05/17 09:10 INR, PTT INR 1.04 (0.82-1.09) 05/04/17 05:00 Fibrinogen 252.0 mg/dL (238-498) 04/23/17 05:15 Problem List - Problems (1) Atrial fibrillation with RVR Code(s): I48.91 - UNSPECIFIED ATRIAL FIBRILLATION (2) CAD (coronary artery disease) Code(s): I25.10 - ATHSCL HEART DISEASE OF [place] CORONARY ARTERY W/O ANG PCTRS (3) Hypothyroid Code(s): E03.9 - HYPOTHYROIDISM, UNSPECIFIED (4) Renal insufficiency Code(s): N28.9 - DISORDER OF KIDNEY AND URETER, UNSPECIFIED (5) Acute respiratory failure Code(s): J96.00 - ACUTE RESPIRATORY FAILURE, UNSP W HYPOXIA OR HYPERCAPNIA (6) Septic shock Code(s): A41.9 - SEPSIS, UNSPECIFIED ORGANISM; R65.21 - SEVERE SEPSIS WITH SEPTIC SHOCK (7) CHF (congestive heart failure) Code(s): I50.9 - HEART FAILURE, UNSPECIFIED (8) Hypoalbuminemia Code(s): E88.09 - [facility] DISORDERS OF PLASMA-PROTEIN METABOLISM, NEC
[2017-05-05] MEDS ORDERED: MORPHINE SULFATE 10 MG/1 ML *VIAL IVPUSH ONE (16:25)
[2017-05-05] MEDS ORDERED: LORazepam 2 MG/ML SDV VIAL IVPUSH ONE (16:25)
[2017-05-05] MEDS ORDERED: LORazepam 2 MG/ML SDV VIAL ONE (16:27)
[2017-05-05] MEDS ORDERED: morphine SULFATE 4 MG/ML VIAL ONE (16:27)
[2017-05-05] MEDS ORDERED: ACETAMINOPHEN 1000 MG/100 ML VIAL (NON FORMULARY) IVPB PRN (16:27)
--- NOTE | 2017-05-05 16:28 | PN ---
Progress Note (short form) - Note Progress Note: 4:15 pm: Family members at bed side. HCP decided for comfort care- to be placed on Morphine drip, Ativan PRN. Rest of the medications to be stopped. DNR/DNI with comfort care- papers signed and attached in the chart. Primary team aware.
[2017-05-05] MEDS ORDERED: MORPHINE 100 MG in SODIUM CHLORIDE 98 ML IVPB SCH ×2 (17:00→17:01)
[2017-05-05 17:07] VITALS: TEMP 99.5
[2017-05-05 17:11] VITALS: BP 62/40; PULSE 72
--- NOTE | 2017-05-05 20:24 | DS ---
Physical Exam: SUBJECTIVE: Patient while receiving comfort care. OBJECTIVE: LABS Laboratory Results - last 24 hr 05/05/17 05/05/17 09:10 09:10 WBC 9.5 D RBC 3.72 Hgb 9.9 L Hct 31.2 L MCV 83.9 MCH 26.5 MCHC 31.6 L RDW 18.9 H Plt Count 226 MPV 9.3 Sodium 136 Potassium 3.6 Chloride 97 L Carbon Dioxide 29 Anion Gap 10 BUN 17 Creatinine 1.0 Creat Clearance w eGFR 52.82 Random Glucose 117 H Calcium 6.5 L* Phosphorus 3.4 Magnesium 2.0 Total Bilirubin 1.7 H AST 39 H ALT 12 Alkaline Phosphatase 143 H Total Protein 4.3 L Albumin 1.8 L HOSPITAL COURSE: Date of Admission:04/14/17 Date of Discharge: 05/05/17 86F with PMH of afib (on Xarelto), CAD s/p stents (2009), systolic CHF, hld, hypothyroidism, 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 Pt experienced septic shock with multiorgan failure. Pt received IV antibiotics for bacteremia and menigitis. Pt was intubated during this hospitalization. Pt had afib with recurrent bursts of RVR. Microbiology 05/03/17 09:05 Blood - Peripheral Venous Blood Culture - Preliminary NO GROWTH OBTAINED AFTER 48 HOURS, INCUBATION TO CONTINUE FOR 3 DAYS. 05/03/17 08:00 Blood - Peripheral Venous Blood Culture - Preliminary NO GROWTH OBTAINED AFTER 48 HOURS, INCUBATION TO CONTINUE FOR 3 DAYS. 04/25/17 11:15 Blood - Peripheral Venous Blood Culture - Final NO GROWTH AFTER 5 DAYS INCUBATION 04/25/17 09:35 Blood - Peripheral Venous Blood Culture - Final NO GROWTH AFTER 5 DAYS INCUBATION 04/20/17 09:15 Blood - Peripheral Venous Blood Culture - Preliminary Listeria Monocytogenes 04/25/17 11:00 Sputum - Endotrachea Suction/Ventilator Gram Stain - Final 04/25/17 11:00 Sputum - Endotrachea Suction/Ventilator Sputum Culture - Final Yeast Like Organism 04/22/17 11:34 Blood - Peripheral Venous Blood Culture - Final NO GROWTH AFTER 5 DAYS INCUBATION 04/22/17 11:29 Blood - Peripheral Venous Blood Culture - Final NO GROWTH AFTER 5 DAYS INCUBATION 04/22/17 16:45 Cerebral Spinal Fluid - Lumbar Puncture AFB Smear Concentration - Final 04/25/17 11:18 Urine - Urine Judge Urine Culture - Final NO GROWTH OBTAINED 04/22/17 16:45 Cerebral Spinal Fluid - Lumbar Puncture Gram Stain - Final 04/22/17 16:45 Cerebral Spinal Fluid - Lumbar Puncture CSF Culture - Final NO GROWTH AFTER 48 HOURS INCUBATION 04/20/17 08:30 Blood - Peripheral Venous Blood Culture - Final Listeria Monocytogenes 04/23/17 10:05 Urine For Antigen Detection Legionella Antigen - Final 04/23/17 10:05 Urine For Antigen Detection Streptococcus pneumoniae Antigen (M - Final 04/22/17 16:45 Cerebral Spinal Fluid - Lumbar Puncture Streptococcus pneumoniae Antigen (M - Final 04/18/17 08:00 Blood - Peripheral Venous Blood Culture - Final NO GROWTH AFTER 5 DAYS INCUBATION 04/18/17 08:00 Blood - Peripheral Venous Blood Culture - Final NO GROWTH AFTER 5 DAYS INCUBATION 04/20/17 11:05 Urine - Urine - Catheterized Urine Culture - Final NO GROWTH OBTAINED 04/20/17 07:55 Nasopharyngeal Swab Influenza Types A,B Antigen (SÁNCHEZ) - Final 04/20/17 07:55 Nasopharyngeal Swab - Final 04/15/17 04:30 Nasopharyngeal Swab Influenza Types A,B Antigen (SÁNCHEZ) - Final 04/15/17 04:30 Nasopharyngeal Swab - Final Pt's family was kept informed about pt's prognosis through multiple discussions with the medical team. Family decided to make pt DNR, and then Comfort Care. Pt at 5:32pm today. Minutes to complete discharge: 35 <Maya Berger - Last Filed: 05/05/17 20:25> Physical Exam: She was diagnosed with Listeria bacteremia with Meningoencephalitis <Carmita Umaña - Last Filed: 05/06/17 17:40> Discharge Summary Reason For Visit: ATRIAL FIBRILLATION WITH RAPID VENTRICULAR RESP Current Active Problems Acute respiratory failure (Acute) Atrial fibrillation with RVR (Acute) Bacteremia due to Gram-positive bacteria (Acute) Hypoalbuminemia (Acute) Hypothyroid (Acute) Listeria brain infection (Acute) Renal insufficiency (Acute) Respiratory failure (Acute) Sepsis (Acute) Septic shock (Acute) - Home Medications Comprehensive Discharge Medication List: Ambulatory Orders Lisinopril [Zestril] 2.5 mg PO DAILY 03/13/16 Furosemide [Lasix -] 40 mg PO DAILY #30 tablet 02/13/17 Metoprolol Succinate [Toprol Xl] 50 mg PO DAILY #30 tab.er.24h 02/13/17 Polyethylene Glycol 3350 [Miralax 119 gm Btl -] 17 gm PO DAILY bottle 02/14/17 Rivaroxaban [Xarelto -] 15 mg PO DAILY tablet 02/14/17 Levothyroxine [Synthroid -] 75 mcg PO DAILY@0700 04/14/17 Metoprolol Tartrate 25 mg PO DAILY 04/18/17 Omeprazole 40 mg PO DAILY 04/18/17 Potassium Citrate [Potassium Citrate ER] 20 meq PO DAILY 04/18/17 <Maya Berger - Last Filed: 05/05/17 20:25> - Home Medications Comprehensive Discharge Medication List: Ambulatory Orders Lisinopril [Zestril] 2.5 mg PO DAILY 03/13/16 Furosemide [Lasix -] 40 mg PO DAILY #30 tablet 02/13/17 Metoprolol Succinate [Toprol Xl] 50 mg PO DAILY #30 tab.er.24h 02/13/17 Polyethylene Glycol 3350 [Miralax 119 gm Btl -] 17 gm PO DAILY bottle 02/14/17 Rivaroxaban [Xarelto -] 15 mg PO DAILY tablet 02/14/17 Levothyroxine [Synthroid -] 75 mcg PO DAILY@0700 04/14/17 Metoprolol Tartrate 25 mg PO DAILY 04/18/17 Omeprazole 40 mg PO DAILY 04/18/17 Potassium Citrate [Potassium Citrate ER] 20 meq PO DAILY 04/18/17 <Carmita Umaña - Last Filed: 05/06/17 17:40> - Instructions Disposition: This patient is new to me today: No Emergency Visit: Yes ED Registration Date: 04/14/17 Care time: The patient presented to the Emergency Department on the above date and was hospitalized for further evaluation of their emergent condition. Critical Care patient: Yes Total Critical Care Time (in minutes): 35 Critical Care Statement: The care of this patient involved high complexity decision making to prevent further life threatening deterioration of the patient 's condition and/or to evaluate & treat vital organ system(s) failure or risk of failure. - Discharge Referral Referred to [facility] No <Maya Berger - Last Filed: 05/05/17 20:25>
== END 2017-05-05 19:30 | disposition expired | DRG 870 ==
LOC: JER 15:23 → JERBED 18:53 → J4W 23:06 → JICU 04-20 11:28
PROVIDERS: ADMIT Internal Medicine; ATTEND Hospitalist
PROC: 3E0G76Z Introduction of Nutritional Substance into Upper GI, Via Natural or Artificial Opening (ICD-10-PCS; 2017-04-20)
PROC: 009U3ZX Drainage of Spinal Canal, Percutaneous Approach, Diagnostic (ICD-10-PCS; 2017-04-22)
PROC: B01BZZZ Fluoroscopy of Spinal Cord (ICD-10-PCS; 2017-04-22)
PROC: 5A09357 Assistance with Respiratory Ventilation, Less than 24 Consecutive Hours, Continuous Positive Airway Pressure (ICD-10-PCS; 2017-04-22)
PROC: 5A1955Z Respiratory Ventilation, Greater than 96 Consecutive Hours (ICD-10-PCS; principal; 2017-04-23)
PROC: 0BH17EZ Insertion of Endotracheal Airway into Trachea, Via Natural or Artificial Opening (ICD-10-PCS; 2017-04-23)
PROC: 05HM33Z Insertion of Infusion Device into Right Internal Jugular Vein, Percutaneous Approach (ICD-10-PCS; 2017-04-23)
PROC: B513ZZA Fluoroscopy of Right Jugular Veins, Guidance (ICD-10-PCS; 2017-04-23)
DX: A32.7 Listerial sepsis (principal); I50.43 Acute on chronic combined systolic (congestive) and diastolic (congestive) heart failure; R65.21 Severe sepsis with septic shock; J96.01 Acute respiratory failure with hypoxia; J18.9 Pneumonia, unspecified organism; G00.1 Pneumococcal meningitis; J81.0 Acute pulmonary edema; G92 Toxic encephalopathy; A32.12 Listerial meningoencephalitis; N17.9 Acute kidney failure, unspecified; J98.11 Atelectasis; E87.3 Alkalosis; R44.3 Hallucinations, unspecified; E87.2 Acidosis; E87.5 Hyperkalemia; E87.6 Hypokalemia; E83.51 Hypocalcemia; E83.42 Hypomagnesemia; I11.0 Hypertensive heart disease with heart failure; N18.9 Chronic kidney disease, unspecified; I27.20 Pulmonary hypertension, unspecified; I48.91 Unspecified atrial fibrillation; I95.9 Hypotension, unspecified; Z78.1 Physical restraint status; R45.1 Restlessness and agitation; E83.39 Other disorders of phosphorus metabolism; K76.0 Fatty (change of) liver, not elsewhere classified; I36.1 Nonrheumatic tricuspid (valve) insufficiency; I34.0 Nonrheumatic mitral (valve) insufficiency; D69.6 Thrombocytopenia, unspecified; R79.1 Abnormal coagulation profile; R74.0 Nonspecific elevation of levels of transaminase and lactic acid dehydrogenase [LDH]; E56.1 Deficiency of vitamin K; E03.9 Hypothyroidism, unspecified; I25.10 Atherosclerotic heart disease of native coronary artery without angina pectoris; Z95.5 Presence of coronary angioplasty implant and graft; Z79.01 Long term (current) use of anticoagulants; E78.5 Hyperlipidemia, unspecified; E78.2 Mixed hyperlipidemia; R05 Cough; I83.93 Asymptomatic varicose veins of bilateral lower extremities; R32 Unspecified urinary incontinence; G47.00 Insomnia, unspecified; N26.1 Atrophy of kidney (terminal); Z66 Do not resuscitate; K52.9 Noninfective gastroenteritis and colitis, unspecified; D64.89 Other specified anemias
CPT/HCPCS: 31500; 36415; 36600; 70450-TC; 71045-TC-FY; 74018-TC-FY; 74176-TC; 76700-TC; 80048; 80053; 81003; 81015; 82140; 82330; 82550; 82803; 82945; 82962; 83605; 83735; 83880; 84100; 84157; 84439; 84443; 84484; 85025; 85027; 85384; 85610; 85730; 86777; 87040; 87070; 87086; 87116; 87186; 87205; 87206; 87802; 87804; 87899; 93005; 93010; 93306-TC; 94002; 94660; 97116-GP; 97161-GP; 99285-25; J1250; P9047